=== PATIENT | female | born 1945 | race Two or more races ===

== ENCOUNTER 2024-04-30 08:18 | Outpatient (RCR) | payer MEDICAID, SELFPAY ==
--- NOTE | 2024-05-01 05:51 | CTCCONSULT_ITS ---
Patient: NIRAV CAGLE : 1945 MR#: [id number] Page 3 of 4 CONSULTATION NOTE DATE OF CONSULTATION: 04/30/2024 NAME: NIRAV CAGLE ACCOUNT: [id number] : 1945 AGE: 78 REFERRING PHYSICIAN: Paul Karimi MD PRIMARY PHYSICIAN: REASON FOR VISIT: History of rectal cancer Patient wants change of treatment team and establish care at [facility]. ONCOLOGY HISTORY: DIAGNOSIS: Malignant neoplasm of rectum [ICD10] C20 DATE OF DIAGNOSIS: 2022 STAGE/TNM: Stage IV TREATMENT HISTORY: Care?Plan Start?Date Cycle Day Intent HISTORY OF PRESENT ILLNESS: Patient had pain and bleeding for about 7 months with 15 to 20 pound weight loss. Patient had a colonoscopy on June 28, 2022. There was a rectal mass extending to the anus. Biopsy showed invasive adenocarcinoma moderately differentiated no loss of MMR. Patient completed preoperative chemoradiation with capecitabine 1000 mg twice daily on days of radiation. Patient tolerated the treatment well Patient had an episode of severe anemia requiring transfusion rectal bleeding has improved with this chemoradiation. Ms. Cagle has been seen by surgery and had follow-up sigmoidoscopy and biopsy. Patient was told there was no cancer found by multiple biopsies. Patient had been referred to [facility] by surgery. The referral was not approved by insurance. Patient decided to continue treatment locally. Patient received her first course of CapeOx chemotherapy with adjusted dose of advanced age on December 06, 2022. Patient tolerated the treatment very well. Ms. Cagle completed CapeOx chemotherapy in May 2023. Ms. Cagle underwent low anterior resection on August 23, 2023. Recent CT scan of chest abdomen and pelvis on December 07, 2023 showed pulmonary metastasis. Family and patient requested CT-guided biopsy of the lung nodules. OTHER MEDICAL HISTORY/CONDITIONS: DIABETES TYPE 2 HYPERTENSION RECTAL CANCER (2022) NEUROPATHY HYPERLIPIDEMIA ANEMIA REQUIRING BLOOD TRANSFUSIONS CHRONIC KIDNEY DISEASE COLON SURGERY/ COLECTOMY IN [place] (AUGUST 2023) CHOLECYSTECTOMY (2019) FAMILY HISTORY: Father:?DENIES?,?FATHER?WAS?DIABETIC Mother:?DENIES Sibling:?DENIES Children:?DENIES Cancer?History:?RECTAL?CANCER Patient?denies?family?cancer?history. 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 Education?Level:?Completed something less than 8th grade Marital?Status:? 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 Basaglar KwikPen - As directed 2. capecitabine - 500 mg 2 tab As directed 3. carvedilol - 3.125 mg 2 tab Daily 4. ferrous sulfate - 325 mg (65 mg iron) 1 tab Daily 5. gabapentin - 300 mg 6. lisinopril - 40 mg Daily 7. metformin - 850 mg Twice a Day Medications Last Reconciled by Eliana Grullon MD on 04/30/2024 ALLERGIES: No Known Allergies REVIEW OF SYSTEMS: A complete 14-point review of systems was performed and is negative except as noted in interval history. PHYSICAL EXAMINATION: VITAL SIGNS: Temperature?98.9, B/P?165/92, Height?60?inches, Oxygen?Saturation?100% Weight?130?lbs PAIN: 0 - No pain ECOG Performance Status: 1 - Symptomatic; ambulatory; restricted in strenuous activity GENERAL APPEARANCE: Appears well, in no apparent distress, appropriately interactive. HEENT: Normocephalic, no temporal wasting, normal conjunctiva, no scleral icterus, normal hearing, lips without lesions, neck normal range of motion. CARDIOVASCULAR: Not assessed. PULMONARY: Normal respiratory effort, no respiratory distress or use of accessory muscles, speaking in full sentences, no tachypnea. EXTREMITIES: No pedal edema or cyanosis. SKIN: Normal skin appearance. NEUROLOGIC: Alert and oriented x4. PSHYCHIATRIC: Appropriate affect, mood normal, behavior normal, intact thought and speech. LABORATORY DATA: I have personally reviewed and interpreted each of the patient?s relevant lab tests, abnormal findings are below: Date ASSESSMENT/PLAN: Rectal cancer Diagnosed in 2022 S/p chemo RT and lower perineal resection Patient have colectomy bag Will get treatment history records from her previous oncologist and recent scan which was completed in February per her ORDERS: CBC CMP CEA CT chest abdomen pelvis with IV contrast RETURN TO CLINIC: 2 weeks BILLING AND COMPLIANCE: I reviewed external records from providers outside my specialty as summarized above. I spent a total of 50 minutes on this patient?s care on the day of their visit excluding time spent related to any billed procedures. This time includes time spent with the patient as well as time spent documenting in the medical record, reviewing patients records and tests, obtaining history, placing orders, communicating with other healthcare professionals, counseling the patient, family or caregiver, and/or care coordination for the diagnoses above. Electronically Signed by: {Object.Sanct_ID*PnP.NameFL@M}, {Object.Sanct_ID*PnP.Suffix@U} D: {Object.Sanct_Date} T: {Object.Sanct_Time} CC: PCP: Referring: Paul Karimi This document was completed utilizing speech recognition software. Grammatical errors, random word insertions, pronoun errors, and incomplete sentences are an occasional consequence of this system due to software limitations, ambient noise, and hardware issues. Any formal questions or concerns about the content, text or information contained within the body of this dictation should be directly addressed to the provider for clarification.
== END 2024-05-09 23:59 | disposition home or self-care (01) ==
LOC: SCTC 08:18
PROVIDERS: PCP Physician Assistant; Visit Provider Internal Medicine Hematology & Oncology
DX: C20 Malignant neoplasm of rectum (principal); Z92.21 Personal history of antineoplastic chemotherapy; Z90.49 Acquired absence of other specified parts of digestive tract
CPT/HCPCS: 99213; G0463

== ENCOUNTER 2024-06-11 10:18 | Outpatient (RCR) | payer MEDICAID, SELFPAY ==
--- NOTE | 2024-06-30 17:34 | CTCFLWUP_ITS ---
Patient: NIRAV CAGLE : 1945 Page 2 of 2 FOLLOW UP NOTE DATE OF SERVICE: 06/11/2024 NAME: NIRAV CAGLE ACCOUNT: [id number] : 1945 AGE: 78 INTERVAL HISTORY: ONCOLOGY HISTORY: DIAGNOSIS: Malignant neoplasm of rectum [ICD10] C20 DATE OF DIAGNOSIS: 2022 STAGE/TNM: Stage IV TREATMENT HISTORY: Care?Plan Start?Date Cycle Day Intent Folfiri?cetuxmab 06/11/2024 1 14 Palliative HISTORY OF PRESENT ILLNESS: Patient had pain and bleeding for about 7 months with 15 to 20 pound weight loss. Patient had a colonoscopy on June 28, 2022. There was a rectal mass extending to the anus. Biopsy showed invasive adenocarcinoma moderately differentiated no loss of MMR. Patient completed preoperative chemoradiation with capecitabine 1000 mg twice daily on days of radiation. Patient tolerated the treatment well Patient had an episode of severe anemia requiring transfusion rectal bleeding has improved with this chemoradiation. Ms. Cagle has been seen by surgery and had follow-up sigmoidoscopy and biopsy. Patient was told there was no cancer found by multiple biopsies. Patient had been referred to [facility] by surgery. The referral was not approved by insurance. Patient decided to continue treatment locally. Patient received her first course of CapeOx chemotherapy with adjusted dose of advanced age on December 06, 2022. Patient tolerated the treatment very well. Ms. Cagle completed CapeOx chemotherapy in May 2023. Ms. Cagle underwent low anterior resection on August 23, 2023. Recent CT scan of chest abdomen and pelvis on December 07, 2023 showed pulmonary metastasis. Family and patient requested CT-guided biopsy of the lung nodules. OTHER MEDICAL HISTORY/CONDITIONS: DIABETES TYPE 2 HYPERTENSION RECTAL CANCER (2022) NEUROPATHY HYPERLIPIDEMIA ANEMIA REQUIRING BLOOD TRANSFUSIONS CHRONIC KIDNEY DISEASE COLON SURGERY/ COLECTOMY IN [place] (AUGUST 2023) CHOLECYSTECTOMY (2019) FAMILY HISTORY: Father:?DENIES?,?FATHER?WAS?DIABETIC Mother:?DENIES Sibling:?DENIES Children:?DENIES Cancer?History:?RECTAL?CANCER Patient?denies?family?cancer?history. 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 Education?Level:?Completed something less than 8th grade Marital?Status:? 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 Basaglar KwikPen - As directed 2. capecitabine - 500 mg 2 tab As directed 3. carvedilol - 3.125 mg 2 tab Daily 4. ferrous sulfate - 325 mg (65 mg iron) 1 tab Daily 5. gabapentin - 300 mg 6. lisinopril - 40 mg Daily 7. metformin - 850 mg Twice a Day Medications Last Reconciled by Nirav Person MD on 06/11/2024 ALLERGIES: No Known Allergies REVIEW OF SYSTEMS: A complete 14-point review of systems was performed and is negative except as noted in interval history. PHYSICAL EXAMINATION: VITAL SIGNS: Temperature?98.2, B/P?126/62, Oxygen?Saturation?98% Weight?134.6?lbs PAIN: 0 - No pain GENERAL APPEARANCE: Appears well, in no apparent distress, appropriately interactive. HEENT: Normocephalic, no temporal wasting, normal conjunctiva, no scleral icterus, normal hearing, lips without lesions, neck normal range of motion. CARDIOVASCULAR: Not assessed. PULMONARY: Normal respiratory effort, no respiratory distress or use of accessory muscles, speaking in full sentences, no tachypnea. EXTREMITIES: No pedal edema or cyanosis. SKIN: Normal skin appearance. NEUROLOGIC: Alert and oriented x4. PSHYCHIATRIC: Appropriate affect, mood normal, behavior normal, intact thought and speech. LABORATORY DATA: I have personally reviewed and interpreted each of the patient?s relevant lab tests, abnormal findings are below: Date ASSESSMENT/PLAN: Rectal cancer Diagnosed in 2022 S/p chemo RT and lower perineal resection Patient have colectomy bag Patient has been on capecitabine Will resume capecitabine and monitor with a CEA If patient's CEA continues to go down we will keep capecitabine or change chemotherapy Repeat imaging ORDERS: Order # Description [id number] Comprehensive Metabolic Panel - 12 + CBC with Auto Diff + CEA [id number] CT Scan + Chest + Abdomen and Pelvis + With W/O Contrast [id number] Follow Up 4 Week [id number] Iron Panel + Ferritin + Folic Acid; Serum + Reticulocyte Count [id number] Vitamin B-12 + Folic Acid; Serum 1784240 2 Units PRBC + 1 Unit PRBC [id number] CBC + Comprehensive Metabolic Panel + CEA [id number] Lab Appointment [id number] CBC + Comprehensive Metabolic Panel + CEA [id number] Lab Appointment RETURN TO CLINIC: 4 weeks BILLING AND COMPLIANCE: I reviewed external records from providers outside my specialty as summarized above. I spent a total of 50 minutes on this patient?s care on the day of their visit excluding time spent related to any billed procedures. This time includes time spent with the patient as well as time spent documenting in the medical record, reviewing patients records and tests, obtaining history, placing orders, communicating with other healthcare professionals, counseling the patient, family or caregiver, and/or care coordination for the diagnoses above. Electronically Signed by: Jorge Lisa MD T: 5:32 PM CC: Radha?Levar?(liliana,? PCP: Referring: Radha Cristobal (tipton) This document was completed utilizing speech recognition software. Grammatical errors, random word insertions, pronoun errors, and incomplete sentences are an occasional consequence of this system due to software limitations, ambient noise, and hardware issues. Any formal questions or concerns about the content, text or information contained within the body of this dictation should be directly addressed to the provider for clarification.
== END 2024-07-09 23:59 | disposition home or self-care (01) ==
LOC: SCTC 10:18
PROVIDERS: PCP Physician Assistant; Referring Provider Physician Assistant; Visit Provider Internal Medicine Hematology & Oncology
DX: C20 Malignant neoplasm of rectum (principal); Z92.21 Personal history of antineoplastic chemotherapy; Z90.49 Acquired absence of other specified parts of digestive tract
CPT/HCPCS: 99212; G0463

== ENCOUNTER → 2024-07-10 | Outpatient (CLI) | payer MEDICAID, SELFPAY ==
--- NOTE | 2024-07-10 15:30 | XR_ITS ---
Examination: CT chest, without intravenous contrast. Sagittal and coronal 2-D reconstructions. Exam date and time: 07/10/[address] chest without contrast January 17, 2024 INDICATIONS: Diagnosis malignant neoplasm rectum 2 years ago, hematuria 2 months, multiple metastatic pulmonary nodules CT chest without contrast January 17, 2024 restaging CTDI:vol (mGy) 15 DLP: (mGycm) 1003 Technique: Multiple 3.0 mm axial sections of the chest to been obtained. Bone and lung density settings are obtained. Sagittal and coronal 2-D reconstructions have been obtained. Low dose protocols were performed. One or more of the following dose reduction techniques were used; automated exposure control, adjustment of the mA and/or KV according to patient size, use of iterative reconstruction technique. Findings: Mild enlargement cardiac contour Moderate calcification left anterior descending coronary artery No paratracheal tracheobronchial or bronchopulmonary adenopathy bilateral pulmonary nodules again depicted All pulmonary nodules have increased in size Right upper lobe anterior segment pulmonary nodule measures 9.3 mm compared to 6.0 mm on January 17, 2024 Right lower lobe pulmonary nodule measures 15 mm compared to 10 mm on January 17, 2024 Multiple additional pulmonary nodules show increase in size compared to prior study New pulmonary nodules, for instance 9 mm pulmonary nodule left lower lobe image 209 No interval pneumonia or pulmonary edema The visualized liver or splenic lesion No pancreatic or adrenal mass No hydronephrosis 2 mm, 3 mm left lateral periaortic lymph nodes, 5 mm left lateral periaortic lymph node 4 mm 3 mm left periaortic lymph nodes 6 mm left common iliac lymph node Left ileostomy Left internal iliac lymphadenopathy, 12 mm, 10 mm Large rectal soft tissue tumor mass, transverse dimension 4.7 cm, this mass extending proximal to distal at least 10 cm extending to the anus Presacral soft tissue mass measures 24 mm in AP dimension and 6.6 cm in mediolateral dimension which may represent tumor extension presacral, I do not have a PET CT scan for comparison Minimal thickening of the urinary bladder wall up to 2 mm Prominent osteopenia Left hip arthroplasty generates artifact in the pelvis IMPRESSION: Progression of pulmonary nodular metastatic disease compared to CT chest January 17, 2024 Abdominal left pelvic lymphadenopathy. Rectosigmoid tumor mass transverse dimension 4.7 cm cephalocaudal dimension at least 10 cm Contiguous presacral soft tissue mass 2.4 cm AP dimension, 6.6 cm mediolateral dimension which may represent tumor extension presacral, I do not have a PET CT scan for comparison
== END | disposition home or self-care (01) ==
PROVIDERS: PCP Physician Assistant; Referring Provider Internal Medicine Hematology & Oncology; Visit Provider Internal Medicine Hematology & Oncology
DX: R59.0 Localized enlarged lymph nodes (principal); R91.8 Other nonspecific abnormal finding of lung field; C20 Malignant neoplasm of rectum
CPT/HCPCS: 71270; 74178; A4649; Q9967

== ENCOUNTER 2024-07-15 10:59 | Emergency (ER) | payer MEDICAID, SELFPAY ==
[2024-07-15 11:21] VITALS: BP 123/69; PULSE 66; RESP 18; TEMP 37.1; O2SAT 97; BMI 23.9
--- NOTE | 2024-07-15 11:37 | PD.EDRME ---
Rapid Medical Screening Exam RME Arrival date/time: 07/15/24 10:59 78-year-old female currently being treated for cancer presents to the emergency department today stating she had labs done yesterday which show she had a high potassium was referred to the ER for further evaluation Chief Complaint: Recheck/Abnormal Lab/Rx Vital signs: Vital Signs Temperature 98.7 F 07/15/24 11:21 Pulse Rate 66 07/15/24 11:21 Respiratory Rate 18 07/15/24 11:21 Blood Pressure 123/69 07/15/24 11:21 Pulse Oximetry (%) 97 07/15/24 11:21 Oxygen Delivery Method Room Air 07/15/24 11:21
[2024-07-15 12:27] LABS: Basophils % (Auto) 0 % (0-2.5); Eosinophils # (Auto) 0.2 Thou/mm3 (0.0-0.5); Eosinophils % (Auto) 1 % (0-10); Hematocrit 26.9 % (36.0-46.0); Hemoglobin 9.6 g/dL (12.0-16.0); Immature Granulocytes % (Auto) 0 % (0-0); Immature Granulocytes Auto 0.07 Thou/mm3 (0.00-0.00); Lymphocytes # (Auto) 2.4 Thou/mm3 (1.0-4.8); Lymphocytes % (Auto) 15 % (10-50); Mean Corpuscular HGB Conc 35.7 g/dl (31.0-37.0); Mean Corpuscular Hemoglobin 35.3 pg (25.0-35.0); Mean Corpuscular Volume 99 fL (80-100); Monocytes # (Auto) 0.9 Thou/mm3 (0.0-0.8); Monocytes % (Auto) 6 % (0-12); Neutrophils # (Auto) 12.4 Thou/mm3 (1.8-7.7); Neutrophils % (Auto) 77 % (37-80); Nucleated Red Blood Cell % 0 /100 WBC (0); Platelet Count 311 Thou/mm3 (140-440); RDW Standard Deviation 52.8 fL (36.4-46.3); Red Blood Count 2.72 Miln/mm3 (4.00-5.20)
[2024-07-15 12:46] LABS: Alanine Aminotransferase 14 U/L (10-49); Albumin, Serum 4.1 gm/dL (3.4-4.8); Albumin/Globulin Ratio 1.3 (1.2-2.2); Alkaline Phosphatase 105 U/L (46-116); Anion Gap 7 (7-16); Aspartate Amino Transferase 19 U/L (0-34); BUN/Creatinine Ratio 24 Ratio (12-20); Bilirubin,Total 0.4 mg/dL (0.3-1.2); Blood Urea Nitrogen 34 mg/dL (9-23); Carbon Dioxide 18.4 mMol/L (20.0-31.0); Chloride 107 mMol/L (98-107); Creatinine (Component) 1.4 mg/dL (0.6-1.3); Globulin 3.2 gm/dL (2.3-3.5); Glucose 126 mg/dL (74-106); Osmolality,Calculated 274 (275-295); Potassium 5.4 mMol/L (3.4-5.1); Sodium 132 mMol/L (136-145); Total Protein 7.3 gm/dL (5.7-8.2); eGFR 38 See Note
--- NOTE | 2024-07-15 15:54 | PD.EDADULT ---
ED General RME/HPI General Chief complaint: Recheck/Abnormal Lab/Rx Stated complaint: HIGH POTASSIUM Time Seen by Provider: 07/15/24 15:42 Arrival date/time: 07/15/24 10:59 CC: Hyperkalemia HPI ongoing unknown onset time he was here yesterday for potassium of 5.3 today has a patient at [facility] patient has no other complaints chest pain shortness of breath difficulty breathing. The patient is on oral chemotherapeutics, does not take any other medications. Denies fever shortness of breath difficulty breathing. RME / HPI RME / HPI narrative: 07/15/24 10:59 78-year-old female currently being treated for cancer presents to the emergency department today stating she had labs done yesterday which show she had a high potassium was referred to the ER for further evaluation Related Data Allergies Allergy/AdvReac Type Severity Reaction Status Date / Time No Known Allergies Allergy Verified 07/15/24 11:01 Review of Systems Review of Systems Narrative Review of Systems: GEN: No fever, no chills, no weight loss EYES: No discharge, no visual changes, no pain HEENT: No ear pain, no congestion, no sore throat PULM: No shortness of breath, no cough, no congestion CV: No chest pain, no dyspnea on exertion, no palpitations GI: No nausea, no vomiting, no diarrhea, no pain, no constipation : No frequency, no urgency, no dysuria MUSC/SKEL: No joint pain, no back pain SKIN: No rash PSYCH: No hallucinations, no depression HEME/LYMPH: No easy bleeding or bruising tendencies NEURO: No weakness, no headache Past Medical History Social History SMOKING STATUS: Never smoker ED Exam Narrative Physical exam: [General: Frail, but not deconditioned, not in any acute distress Head normocephalic HEENT: Eyes: Pupils are PERRLA EOMs are intact mouth pink dry membranes uvula is midline swallow symmetrical phonation is normal. All other subsystems of HEENT are within acceptable limits Neck is supple nontender Chest equal chest rise nontender to palpation Respiratory: Clear to auscultation no wheezes crackles or rubs CV: Rate rhythm is regular no murmurs rubs or clicks Abdomen is soft nontender no masses positive bowel sounds all 4 quadrants Back: No CVA tenderness no spinous process tenderness from cervical spine thoracic and lumbar spine Skin: Intact no petechiae rash induration ulceration or crepitus Extremities: Moving all extremity against resistance cap refill less than 2 seconds neurosensory intact Neuro: Awake alert oriented x3 Glascow coma 15 no focal deficits] Course Quality Measures none Orders Category Date Time Status CBC Stat Lab 07/15/24 12:15 Completed CMP [Comprehensive Metabolic Panel] Stat Lab 07/15/24 12:15 Completed ALBUTEROL RT 0.5ml [Proventil Rt 0.5ml] Med 07/15/24 15:53 Once 2.5 mg INH X1 ONE Sodium Chloride Rt Patricia 0.9% [NS Rt Patricia 0.9%] Med 07/15/24 15:53 Ordered 3 ml INH PRN PRN Vital Signs Vital signs: Vital Signs Temperature 98.7 F 07/15/24 11:21 Pulse Rate 66 07/15/24 11:21 Respiratory Rate 18 07/15/24 11:21 Blood Pressure 123/69 07/15/24 11:21 Pulse Oximetry (%) 97 07/15/24 11:21 Oxygen Delivery Method Room Air 07/15/24 11:21 Discharge Plan Plan Patient Disposition: HOME (Self Care) Patient condition on transfer: Stable Prescriptions/Referrals Referrals: Bob Connolly MD [Primary Care Provider] - In 1 week Problem List Clinical Impression: Hyperkalemia, Renal insufficiency Patient/Caregiver Discharge Instructions Other Activity Instructions:: Follow-up with your clinic in [place], and get regular checks if there is a worsening of symptoms or increase in values return to the emergency room immediately for further evaluation. Education Materials: Hyperkalemia Dc Print Language: South Korean Stand Alone Forms: Lily Award Info., Work/School Release, Patient Portal Info Letter PA/LITHOGRAPHIC PROOFER Supervising Physician PA/LITHOGRAPHIC PROOFER Supervising Physician: Alcides Panchal ENP [facility] Clinical Information Provided by: patient Medical Records reviewed [facility] Imaging Imaging Interpretation(s): CBC shows a mild leukocytosis of 16.0 H&H of 9.6 and 26.9 note I have no old labs for comparison. However the patient is on chemotherapy. Platelets at 311. CMP shows sodium 132 potassium of 5.4 CO2 of 18.4 BUN of 34 creatinine 1.4 glucose of 126 No transaminitis or T. bili elevation. Again no old labs for comparison other than yesterday which showed a mild rise in the potassium. Creatinine is mildly improved from 1.6-1.4. Medication Administration(s) Medication Administration History Albuterol (Albuterol Rt 2.5 Mg/0.5 Ml Nebu) 2.5 mg INH X1 ONE Stop: 07/15/24 15:54 Sodium Chloride (Sodium Chloride Rt Patricia 0.9% 3 Ml Nebu) 3 ml INH PRN PRN PRN Reason: SOLN Stop: 08/14/24 15:52 Diagnosis Differential Diagnosis ED Complaint MDM: Renal insufficiency hyperkalemia
[2024-07-15 16:23] VITALS: PULSE 62
[2024-07-15] MEDS: SODIUM CHLORIDE RT SOL 0.9% 3 ML NEBU INH (16:23)
[2024-07-15] MEDS: ALBUTEROL RT 2.5 MG/0.5 ML NEBU INH (16:23)
[2024-07-15 16:27] VITALS: PULSE 68; RESP 20; O2SAT 99
== END 2024-07-15 16:43 | disposition home or self-care (01) ==
PROVIDERS: Nurse Practitioner Primary Care; Emergency Provider Emergency Medicine; PCP Family Medicine
DX: E87.5 Hyperkalemia (principal); N28.9 Disorder of kidney and ureter, unspecified
CPT/HCPCS: 36415; 80053; 84132; 85025; 94640; 99283

== ENCOUNTER 2024-07-31 07:51 | Outpatient (RCR) | payer MEDICAID, SELFPAY ==
[2024-07-14 11:52] LABS: Alanine Aminotransferase 14 U/L (10-49); Albumin, Serum 4.1 gm/dL (3.4-4.8); Albumin/Globulin Ratio 1.3 (1.2-2.2); Alkaline Phosphatase 110 U/L (46-116); Anion Gap 10 (7-16); Aspartate Amino Transferase 21 U/L (0-34); BUN/Creatinine Ratio 26 Ratio (12-20); Bilirubin,Total 0.3 mg/dL (0.3-1.2); Blood Urea Nitrogen 41 mg/dL (9-23); Calcium 8.5 mg/dL (8.3-10.6); Calcium (Corrected) 8.5 mg/dL (8.5-10.1); Carbon Dioxide 19.2 mMol/L (20.0-31.0); Chloride 111 mMol/L (98-107); Creatinine (Component) 1.6 mg/dL (0.6-1.3); Globulin 3.1 gm/dL (2.3-3.5); Glucose 179 mg/dL (74-106); Osmolality,Calculated 293 (275-295); Potassium 5.3 mMol/L (3.4-5.1); Sodium 140 mMol/L (136-145); Total Protein 7.2 gm/dL (5.7-8.2); eGFR 33 See Note
--- NOTE | 2024-07-14 15:43 | CTCFLWUP_ITS ---
Patient: NIRAV CAGLE : 1945 Page 3 of 5 FOLLOW UP NOTE DATE OF SERVICE: 07/14/2024 NAME: NIRAV CAGLE ACCOUNT: [id number] : 1945 AGE: 78 Visit summary Nirav, a female with colon cancer, presented for follow-up of elevated potassium (5.7 mmol/L) and creatinine levels. Her history includes chronic kidney disease. She reported feeling good with no symptoms related to her abnormal labs. Her hemoglobin was 9.4 g/dL, showing improvement. Immediate repeat blood work was ordered for hyperkalemia. Management included prescribing potassium-lowering medication, increasing fluid intake, nephrology referral, continuing capecitabine, ordering CEA level tests, and recommending port placement for easier blood draws. INTERVAL HISTORY: Chief Complaint High potassium level, elevated creatinine, kidney function concerns History of Present Illness Nirav Connolly, a female patient with a history of colon cancer, presents for follow-up of her oncology care. She reports feeling good overall at this visit. The patient's primary concern is her elevated potassium and creatinine levels, which were discovered in recent blood work from July 10. She denies any symptoms related to these abnormal lab values, including constipation. When asked about her fluid intake, Nirav believes she is drinking enough water but is willing to increase her intake if necessary. Nirav does not report any new or worsening symptoms related to her colon cancer. She continues to take capecitabine as part of her cancer treatment regimen. The patient denies any other complaints or concerns at this time. Medical History - Colon cancer - Chronic kidney disease Medications and Supplements - Capecitabine - For colon cancer treatment Review of Systems Gastrointestinal: Negative for constipation. 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 Patient had a colonoscopy on June 28, 2022. There was a rectal mass extending to the anus. Biopsy showed invasive adenocarcinoma moderately differentiated no loss of MMR. Patient completed preoperative chemoradiation with capecitabine 1000 mg twice daily on days of radiation. Patient tolerated the treatment well Patient had an episode of severe anemia requiring transfusion rectal bleeding has improved with this chemoradiation. Ms. Cagle has been seen by surgery and had follow-up sigmoidoscopy and biopsy. Patient was told there was no cancer found by multiple biopsies. Patient had been referred to [facility] by surgery. The referral was not approved by insurance. Patient decided to continue treatment locally. Patient received her first course of CapeOx chemotherapy with adjusted dose of advanced age on December 06, 2022. Patient tolerated the treatment very well. Ms. Cagle completed CapeOx chemotherapy in May 2023. Ms. Cagle underwent low anterior resection on August 23, 2023. Recent CT scan of chest abdomen and pelvis on December 07, 2023 showed pulmonary metastasis. Family and patient requested CT-guided biopsy of the lung nodules. OTHER MEDICAL HISTORY/CONDITIONS: DIABETES TYPE 2 HYPERTENSION RECTAL CANCER (2022) NEUROPATHY HYPERLIPIDEMIA ANEMIA REQUIRING BLOOD TRANSFUSIONS CHRONIC KIDNEY DISEASE COLON SURGERY/ COLECTOMY IN [place] (AUGUST 2023) CHOLECYSTECTOMY (2019) FAMILY HISTORY: Father:?DENIES?,?FATHER?WAS?DIABETIC Mother:?DENIES Sibling:?DENIES Children:?DENIES Cancer?History:?RECTAL?CANCER Patient?denies?family?cancer?history. 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 Education?Level:?Completed something less than 8th grade Marital?Status:? 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 Basaglar KwikPen - As directed 2. capecitabine - 500 mg 2 tab As directed 3. carvedilol - 3.125 mg 2 tab Daily 4. ferrous sulfate - 325 mg (65 mg iron) 1 tab Daily 5. gabapentin - 300 mg 6. lisinopril - 40 mg Daily Medications Last Reconciled by Nirav Delgadillo MA on 07/14/2024 ALLERGIES: No Known Allergies REVIEW OF SYSTEMS: A complete 14-point review of systems was performed and is negative except as noted in interval history. PHYSICAL EXAMINATION: VITAL SIGNS: Temperature?98, B/P?118/69, Oxygen?Saturation?99% PAIN: 0 - No pain ECOG Performance Status: 0 - Asymptomatic and fully active GENERAL APPEARANCE: Appears well, in no apparent distress, appropriately interactive. HEENT: Normocephalic, no temporal wasting, normal conjunctiva, no scleral icterus, normal hearing, lips without lesions, neck normal range of motion. CARDIOVASCULAR: Not assessed. PULMONARY: Normal respiratory effort, no respiratory distress or use of accessory muscles, speaking in full sentences, no tachypnea. EXTREMITIES: No pedal edema or cyanosis. SKIN: Normal skin appearance. NEUROLOGIC: Alert and oriented x4. PSHYCHIATRIC: Appropriate affect, mood normal, behavior normal, intact thought and speech. LABORATORY DATA: I have personally reviewed and interpreted each of the patient?s relevant lab tests, abnormal findings are below: Date ASSESSMENT/PLAN: Rectal cancer Diagnosed in 2022 S/p chemo RT and lower perineal resection Patient have colectomy bag Patient has been on capecitabine Nirav Mohsen, female patient with colon cancer, presenting for follow-up of lab results and ongoing management. Hyperkalemia Assessment: Patient's potassium level is elevated at 5.7, which is concerning due to the risk of cardiac complications. The last blood work was performed on July 10, 2024, showing high potassium and creatinine levels. This elevation in potassium is potentially life-threatening and requires immediate attention. The patient's kidney function appears to be impaired, contributing to the electrolyte imbalance. Plan: - Repeat blood work immediately to recheck potassium and kidney function - If potassium remains elevated: - Administer IV fluids - Prescribe potassium-lowering medication (sent to [facility] pharmacy) - Patient instructed not to take medication until contacted by nursing staff - Encourage increased fluid intake to at least 5-6 bottles of water daily - Referral to residential support specialist for kidney issues Colon Cancer Assessment: Patient is undergoing treatment for colon cancer. Current hemoglobin level is 9.4, which is considered improved. Ongoing monitoring of cancer markers, specifically CEA levels, is necessary to assess disease progression and treatment efficacy. Plan: - Continue capecitabine for colon cancer treatment - Order CEA level test - Provide handwritten orders for monthly CEA tests for the next 12 months - Reassess treatment plan if CEA levels increase or if next scan shows cancer progression - Recommend port placement for easier blood draws and potential future treatments - Order submitted for port placement, pending insurance approval - Patient to be contacted for scheduling once approved Anemia Assessment: Patient's hemoglobin has improved to 9.4, which is now considered good. This indicates a positive response to current management strategies for anemia. Plan: - Continue current anemia management - Monitor hemoglobin levels with future blood work ORDERS: Order # Description [id number] Comprehensive Metabolic Panel - 12 + CBC with Auto Diff + CEA + [id number] + Comprehensive Metabolic Panel - 12 + CBC with Auto Diff [id number] RETURN TO CLINIC: Tomorrow BILLING AND COMPLIANCE: I reviewed external records from providers outside my specialty as summarized above. I spent a total of 50 minutes on this patient?s care on the day of their visit excluding time spent related to any billed procedures. This time includes time spent with the patient as well as time spent documenting in the medical record, reviewing patients records and tests, obtaining history, placing orders, communicating with other healthcare professionals, counseling the patient, family or caregiver, and/or care coordination for the diagnoses above. Electronically Signed by: Jorge Lisa MD T: 3:40 PM CC: Radha?Levar?(liliana,? PCP: Referring: Radha Cristobal (tipton) This document was completed utilizing speech recognition software. Grammatical errors, random word insertions, pronoun errors, and incomplete sentences are an occasional consequence of this system due to software limitations, ambient noise, and hardware issues. Any formal questions or concerns about the content, text or information contained within the body of this dictation should be directly addressed to the provider for clarification.
[2024-07-31 08:59] LABS: Basophils # (Auto) 0.1 Thou/mm3 (0.0-0.2); Basophils % (Auto) 0 % (0-2.5); Eosinophils # (Auto) 0.2 Thou/mm3 (0.0-0.5); Eosinophils % (Auto) 1 % (0-10); Hematocrit 23.7 % (36.0-46.0); Immature Granulocytes % (Auto) 1 % (0-0); Immature Granulocytes Auto 0.06 Thou/mm3 (0.00-0.00); Lymphocytes # (Auto) 1.6 Thou/mm3 (1.0-4.8); Lymphocytes % (Auto) 14 % (10-50); Mean Corpuscular HGB Conc 33.3 g/dl (31.0-37.0); Mean Corpuscular Hemoglobin 34.8 pg (25.0-35.0); Mean Corpuscular Volume 104 fL (80-100); Monocytes # (Auto) 0.7 Thou/mm3 (0.0-0.8); Monocytes % (Auto) 6 % (0-12); Neutrophils # (Auto) 8.8 Thou/mm3 (1.8-7.7); Neutrophils % (Auto) 77 % (37-80); Nucleated Red Blood Cell % 0 /100 WBC (0); Platelet Count 318 Thou/mm3 (140-440); RDW Standard Deviation 55.6 fL (36.4-46.3); Red Blood Count 2.27 Miln/mm3 (4.00-5.20); White Blood Count 11.4 Thou/mm3 (3.6-11.0)
[2024-07-31 09:14] LABS: Carcinoembryonic Antigen 12.6 ng/mL (0.0-5.0)
[2024-07-31 09:18] LABS: Hemoglobin 7.9 g/dL (12.0-16.0)
[2024-07-31 09:27] LABS: Alanine Aminotransferase 7 U/L (10-49); Albumin, Serum 3.5 gm/dL (3.4-4.8); Albumin/Globulin Ratio 1.2 (1.2-2.2); Alkaline Phosphatase 90 U/L (46-116); Anion Gap 11 (7-16); Aspartate Amino Transferase 12 U/L (0-34); BUN/Creatinine Ratio 22 Ratio (12-20); Bilirubin,Total 0.3 mg/dL (0.3-1.2); Blood Urea Nitrogen 35 mg/dL (9-23); Calcium (Corrected) 8.4 mg/dL (8.5-10.1); Chloride 110 mMol/L (98-107); Creatinine (Component) 1.6 mg/dL (0.6-1.3); Globulin 2.9 gm/dL (2.3-3.5); Glucose 174 mg/dL (74-106); Osmolality,Calculated 283 (275-295); Potassium 5.6 mMol/L (3.4-5.1); Sodium 136 mMol/L (136-145); Total Protein 6.4 gm/dL (5.7-8.2); eGFR 33 See Note
[2024-07-31 10:41] LABS: Carbon Dioxide 14.8 mMol/L (20.0-31.0)
== END 2024-08-09 23:59 | disposition home or self-care (01) ==
LOC: SCTC 07:51
PROVIDERS: PCP Physician Assistant; Referring Provider Physician Assistant; Visit Provider Internal Medicine Hematology & Oncology
DX: C20 Malignant neoplasm of rectum (principal); E87.5 Hyperkalemia; D64.9 Anemia, unspecified
CPT/HCPCS: 36415; 80053; 82378; 85025; 96360; 99212; J7030; G0463

== ENCOUNTER 2024-07-31 13:05 | Emergency (ER) | payer MEDICAID, SELFPAY ==
[2024-07-31] VITALS (18 sets, daily range): BP systolic 117–158; BP diastolic 60–83; PULSE 63–118; RESP 10–24; TEMP 36.7–37.2; O2SAT 99–100; BMI 24.3
--- NOTE | 2024-07-31 13:29 | PD.EDRME ---
Rapid Medical Screening Exam RME Arrival date/time: 07/31/24 13:05 78-year-old female with a history of lung cancer and colon cancer presents to the emergency room with a chief complaint of weakness and fatigue. Patient states she had blood drawn this morning and was sent by the cancer treatment center for a blood transfusion I have greeted and performed a focused initial assessment of this patient. A comprehensive ED assessment and evaluation of the patient, analysis of all test results, and completion of the medical decision making process will be conducted by additional ED providers. Chief Complaint: Recheck/Abnormal Lab/Rx Time Seen by Provider: 07/31/24 13:08 Vital signs: Vital Signs Temperature 99.0 F 07/31/24 13:17 Pulse Rate 70 07/31/24 13:17 Respiratory Rate 16 07/31/24 13:17 Blood Pressure 117/61 07/31/24 13:17 Pulse Oximetry (%) 99 07/31/24 13:17 Oxygen Delivery Method Room Air 07/31/24 13:17 Vital signs reviewed by provider: Yes
[2024-07-31 14:02] LABS: Basophils # (Auto) 0.1 Thou/mm3 (0.0-0.2); Basophils % (Auto) 0 % (0-2.5); Eosinophils # (Auto) 0.2 Thou/mm3 (0.0-0.5); Eosinophils % (Auto) 2 % (0-10); Hematocrit 22.7 % (36.0-46.0); Immature Granulocytes % (Auto) 0 % (0-0); Immature Granulocytes Auto 0.03 Thou/mm3 (0.00-0.00); Lymphocytes # (Auto) 1.6 Thou/mm3 (1.0-4.8); Lymphocytes % (Auto) 13 % (10-50); Mean Corpuscular HGB Conc 35.2 g/dl (31.0-37.0); Mean Corpuscular Hemoglobin 35.4 pg (25.0-35.0); Mean Corpuscular Volume 100 fL (80-100); Monocytes # (Auto) 0.7 Thou/mm3 (0.0-0.8); Monocytes % (Auto) 6 % (0-12); Neutrophils # (Auto) 9.5 Thou/mm3 (1.8-7.7); Neutrophils % (Auto) 79 % (37-80); Nucleated Red Blood Cell % 0 /100 WBC (0); Platelet Count 286 Thou/mm3 (140-440); RDW Standard Deviation 53.3 fL (36.4-46.3); Red Blood Count 2.26 Miln/mm3 (4.00-5.20); White Blood Count 12.1 Thou/mm3 (3.6-11.0)
[2024-07-31 14:19] LABS: Alanine Aminotransferase 9 U/L (10-49); Albumin, Serum 3.6 gm/dL (3.4-4.8); Albumin/Globulin Ratio 1.2 (1.2-2.2); Alkaline Phosphatase 88 U/L (46-116); Anion Gap 10 (7-16); Aspartate Amino Transferase 14 U/L (0-34); BUN/Creatinine Ratio 18 Ratio (12-20); Bilirubin,Total 0.3 mg/dL (0.3-1.2); Blood Urea Nitrogen 30 mg/dL (9-23); Calcium 8.3 mg/dL (8.3-10.6); Calcium (Corrected) 8.6 mg/dL (8.5-10.1); Carbon Dioxide 15.4 mMol/L (20.0-31.0); Chloride 109 mMol/L (98-107); Creatinine (Component) 1.7 mg/dL (0.6-1.3); Glucose 179 mg/dL (74-106); Osmolality,Calculated 278 (275-295); Potassium 5.8 mMol/L (3.4-5.1); Sodium 134 mMol/L (136-145); Total Protein 6.6 gm/dL (5.7-8.2); eGFR 30 See Note
[2024-07-31 14:43] LABS: INR 1.2 (0.9-1.3); Partial Thromboplastin Time 25.4 Seconds (22.0-36.0); Prothrombin Time 12.8 Seconds (9.0-12.2)
--- NOTE | 2024-07-31 16:04 | EDNOTE_ITS ---
ED Recheck Abnl Lab Rx-RME/HPI General Chief Complaint: Recheck/Abnormal Lab/Rx Stated Complaint: ANEMIA, SENT BY [facility] Time Seen by Provider: 07/31/24 13:08 Arrival date/time: 07/31/24 13:05 RME / HPI RME / HPI narrative: 78-year-old female with a history of lung cancer and colon cancer presents to the emergency room with a chief complaint of weakness and fatigue. Patient states she had blood drawn this morning and was sent by the cancer treatment center for a blood transfusion. Patient is currently on chemotherapy. Patient denies any other complaints denies any vomiting blood or changes to color of the stool. Related Data Allergies Allergy/AdvReac Type Severity Reaction Status Date / Time No Known Allergies Allergy Verified 07/15/24 11:01 Review of Systems Review of Systems Narrative Review of Systems: Review of system reviewed and within normal limits except mentioned in HPI ED Exam Narrative Physical exam: VITAL SIGNS: Reviewed. GENERAL APPEARANCE: Alert and interactive, follows commands, no acute distress, HEAD AND FACE: Non-traumatic. ENT: PERRL, pale conjunctiva eyelid no trauma, Mucous membrane moist. NECK: Supple, nontender, no nuchal rigidity. CHEST: No tenderness, no crepitus, no paradoxical movement, no retractions. LUNGS: Clear, well ventilated, symmetric, no rales, no wheezing, no ronchi, no stridor, good breath sounds bilaterally. HEART: Regular rate, regular rhythm, no murmur, no gallops. ABDOMEN: Soft, positive bowel sounds, nondistended, no guarding, nontender, no rebound, no masses, RECTAL: Deferred. GENITAL: Deferred. NEUROLOGICAL: Gross motor function intact sensory function intact, Appropriate for age. MUSCULOSKELETAL: low back nontender, full range of motion. EXTREMITIES: Nontender, full range of motion. SKIN: Color pale, dry, no rash, no lacerations, no abrasions, no contusions. LYMPHATICS: Deferred. Course Quality Measures none Orders Category Date Time Status Transfuse,blood/blood products ONCE Care 07/31/24 15:35 Active CBC Stat Lab 07/31/24 13:38 Completed CMP [Comprehensive Metabolic Panel] Stat Lab 07/31/24 13:38 Completed PT [Prothrombin Time with INR] Stat Lab 07/31/24 13:38 Completed PTT [Partial Thromboplastin Time] Stat Lab 07/31/24 13:38 Completed Type and Screen Stat Lab 07/31/24 13:38 Completed prbc [Red Blood Cells] Stat Lab 07/31/24 13:38 Completed Sod Polystyrene Sulfon Susp [Kayexalate Susp] Med 07/31/24 15:35 Discontinued 30 gm PO X1 ONE Vital Signs Vital signs: Vital Signs Temperature 99.0 F 07/31/24 13:17 Pulse Rate 70 07/31/24 13:17 Respiratory Rate 16 07/31/24 13:17 Blood Pressure 117/61 07/31/24 13:17 Pulse Oximetry (%) 99 07/31/24 13:17 Oxygen Delivery Method Room Air 07/31/24 13:17 Recheck / Abnormal Lab / Rx MDM Narrative MDM Narrative:: 78-year-old female with a history of lung cancer and colon cancer presents to the emergency room with a chief complaint of weakness and fatigue. Patient states she had blood drawn this morning and was sent by the cancer treatment center for a blood transfusion. Patient is currently on chemotherapy. Patient denies any other complaints denies any vomiting blood or changes to color of the stool. Patient's hemoglobin was noted to be 8.0, hematocrit of 22.7, blood transfusion was done since patient is symptomatic and currently on chemotherapy. Patient potassium was noted to be 5.8 patient was given Kayexalate p.o. Was given 2 units of packed RBC, patient tolerated procedure well. Patient data External records reviewed:: None Clinical information provided by:: patient Social determinants that could affect healthcare access:: none Patient has the following chronic illnesses:: None How is presenting disease/condition affected by chronic disease/condition?: no chronic disease Evaluation data The following diagnostics were reviewed and interpreted by me:: lab results Lab and/or radiology exams considered but not ordered:: None Interpretation Summary: See results MDM Medications / Prescriptions Medications or Prescriptions considered but not ordered:: None Medication administrations:: Medication Administration History Discontinued Medications Sodium Polystyrene Sulfonate (Sod Polystyrene Sulfon Susp 15 Gm/60 Ml Btl) 30 gm PO X1 ONE Stop: 07/31/24 15:36 Last Admin: 07/31/24 17:40 Dose: 30 gm Documented By: GM Kayexalate Consultations Consultation(s) initiated? (list below): No Diagnosis Recheck Differential Diagnosis: other (Anemia, anemia related to cancer anemia of chronic disease) Most likely diagnosis given after review of the tests above:: Anemia chronic disease Admission Indicated Admission indicated?: not indicated Admission Request Was there a request for admission?: No Disposition Plan Disposition Plan: Discharge Discharge Attestation Discharge Attestation: The patient and all family members were given an opportunity to ask questions and understood the discharge instructions. Discharge instructions specifically effects, indications for sooner follow up or return to the emergency department, and the expected course of current diagnosis. Patient condition: Stable Discharge Plan Plan Patient Disposition: HOME (Self Care) Discharge Disposition comment: stable Prescriptions/Referrals Referrals: Radha Cristobal PA-C [Primary Care Provider] - In 1 week Problem List Clinical Impression: Anemia Patient/Caregiver Discharge Instructions Discharge Activity: activity as tolerated Education Materials: Anemia During Cancer Additional Instructions: Thank you for the opportunity for serving you today. You are stable for discharged . You are advised to: Follow-up with your PCP in 1 to 2 days Return to ED for worsening of symptoms Follow-up with your PCP in 2 days for repeat potassium check Print Language: Central African Stand Alone Forms: Lily Award Info., Work/School Release, Patient Portal Info Letter MEG Supervising Physician MEG Supervising Physician: MD Jorge Alberto
[2024-07-31] MEDS: SOD POLYSTYRENE SULFON SUSP 15 GM/60 ML BTL 30 GM PO (17:40)
--- NOTE | 2024-07-31 19:10 | PC.NURSE ---
ASSUMED CARE OF PATIENT, 1ST UNIT OF PRBCS ALREADY INFUSING, PT STATES THAT SHE HAD ROUTINE BLOOD DRAWN THIS MORNING AND THEY CALLED HER TO TELL HER HER BLOOD WAS LOW AND TO GO TO THE CANCER CENTER FOR A BLOOD TRANSFUSION. WHEN SHE ARRIVED THERE THEY SENT HER TO THE ER. PT HAS NO COMPLAINTS, DAUGHTER AT BEDSIDE, PT TO GET 1 MORE UNIT OF PRBCS, WILL CONTINUE WITH PLAN OF CARE
== END 2024-07-31 23:39 | disposition home or self-care (01) ==
PROVIDERS: Nurse Practitioner Family; Emergency Provider Family Medicine; PCP Physician Assistant
DX: D64.9 Anemia, unspecified (principal)
CPT/HCPCS: 36415; 36430; 80053; 85025; 85610; 85730; 86850; 86900; 86901; 86923; 99285; P9016; A9270

== ENCOUNTER 2024-08-26 11:16 | Outpatient (RCR) | payer MEDICAID, SELFPAY ==
--- NOTE | 2024-08-26 13:30 | CTCFLWUP_ITS ---
Patient: NIRAV CAGLE : 1945 Page 2 of 2 FOLLOW UP NOTE DATE OF SERVICE: 08/26/2024 NAME: NIRAV CAGLE ACCOUNT: [id number] : 1945 AGE: 78 INTERVAL HISTORY: Subjective: Chief Complaint Follow-up for colon cancer treatment, increasing tumor markers History of Present Illness Nirav Connolly, a patient with colon cancer, presents for follow-up of her ongoing treatment. Her cancer markers have shown an increase, with her Lesa test result rising from 3.05 in April to 7.87 currently, and her CEA now at 12.6. The patient has been taking Xeloda (capecitabine) for her colon cancer treatment, but it appears to be ineffective. She is currently on a low dose regimen of 2 tablets in the morning and 1 in the afternoon, which is significantly lower than the recommended dose based on her weight of 131 lbs and body surface area of 1.57. The patient reports experiencing a sensation like sand in her hands, which may be indicative of neuropathy as a side effect of her current treatment. The patient's daughter expresses concerns about starting intravenous chemotherapy, as the patient is scared of this treatment modality. It is noted that the patient has not received aggressive treatment for her colon cancer thus far, which has impacted her eligibility for surgery. Medications and Supplements - Xeloda (capecitabine) 500 mg tablets - Current dose: 2 tablets in the morning, 1 tablet in the afternoon - Taken 2 weeks on, 1 week off - Not working effectively for cancer treatment - Lesa testing - Recent result: 7.87 (increased from 3.05 in April) Review of Systems Neurological: Positive for neuropathy (feeling like sand in hands). Objective: Vital Signs - Weight: 131 lbs Laboratory, Imaging, and Diagnostic Test Results - Date: SunAug 26 2024 - Lesa test: 7.87 (positive) - CEA: 12.6 - Previous results: - Lesa test: 3.05 (April 2024) Medications and Supplements - Capecitabine - For colon cancer treatment Review of Systems Gastrointestinal: Negative for constipation. Medical History - Colon cancer - Chronic kidney disease Medications and Supplements - Capecitabine - For colon cancer treatment Review of Systems Gastrointestinal: Negative for constipation. 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 Patient had a colonoscopy on June 28, 2022. There was a rectal mass extending to the anus. Biopsy showed invasive adenocarcinoma moderately differentiated no loss of MMR. Patient completed preoperative chemoradiation with capecitabine 1000 mg twice daily on days of radiation. Patient tolerated the treatment well Patient had an episode of severe anemia requiring transfusion rectal bleeding has improved with this chemoradiation. Ms. Cagle has been seen by surgery and had follow-up sigmoidoscopy and biopsy. Patient was told there was no cancer found by multiple biopsies. Patient had been referred to [facility] by surgery. The referral was not approved by insurance. Patient decided to continue treatment locally. Patient received her first course of CapeOx chemotherapy with adjusted dose of advanced age on December 06, 2022. Patient tolerated the treatment very well. Ms. Cagle completed CapeOx chemotherapy in May 2023. Ms. Cagle underwent low anterior resection on August 23, 2023. Recent CT scan of chest abdomen and pelvis on December 07, 2023 showed pulmonary metastasis. Family and patient requested CT-guided biopsy of the lung nodules. OTHER MEDICAL HISTORY/CONDITIONS: DIABETES TYPE 2 HYPERTENSION RECTAL CANCER (2022) NEUROPATHY HYPERLIPIDEMIA ANEMIA REQUIRING BLOOD TRANSFUSIONS CHRONIC KIDNEY DISEASE COLON SURGERY/ COLECTOMY IN [place] (AUGUST 2023) CHOLECYSTECTOMY (2019) FAMILY HISTORY: Father:?DENIES?,?FATHER?WAS?DIABETIC Mother:?DENIES Sibling:?DENIES Children:?DENIES Cancer?History:?RECTAL?CANCER Patient?denies?family?cancer?history. 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 Education?Level:?Completed something less than 8th grade Marital?Status:? 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 Basaglar KwikPen - As directed 2. capecitabine - 500 mg tab As directed 3. capecitabine - 500 mg 1,250 meq/m*2 1963 meq 3 tabs twice daily for 14 days 4. carvedilol - 3.125 mg 2 tab Daily 5. ferrous sulfate - 325 mg (65 mg iron) 1 tab Daily 6. gabapentin - 300 mg 7. lisinopril - 40 mg Daily 8. sodium polystyrene sulfonate - 30 gm once Medications Last Reconciled by Nirav Delgadillo MA on 07/14/2024 ALLERGIES: No Known Allergies REVIEW OF SYSTEMS: A complete 14-point review of systems was performed and is negative except as noted in interval history. PHYSICAL EXAMINATION: VITAL SIGNS: GENERAL APPEARANCE: Appears well, in no apparent distress, appropriately interactive. HEENT: Normocephalic, no temporal wasting, normal conjunctiva, no scleral icterus, normal hearing, lips without lesions, neck normal range of motion. CARDIOVASCULAR: Not assessed. PULMONARY: Normal respiratory effort, no respiratory distress or use of accessory muscles, speaking in full sentences, no tachypnea. EXTREMITIES: No pedal edema or cyanosis. SKIN: Normal skin appearance. NEUROLOGIC: Alert and oriented x4. PSHYCHIATRIC: Appropriate affect, mood normal, behavior normal, intact thought and speech. LABORATORY DATA: I have personally reviewed and interpreted each of the patient?s relevant lab tests, abnormal findings are below: Date 07/31/24 ??WHITE?BLOOD?COUNT?(Thou/mm3) 11.4?H ? ??RED?BLOOD?COUNT?(Miln/mm3) 2.27?L ? ??HEMOGLOBIN?(gm/dl) 7.9?L ? ??HEMATOCRIT?(%) 23.7?L ? ??PLATELET?COUNT?(Thou/mm3) 318 ? ??NEUTROPHILS?%,?AUTO?(%) 77 ? ??LYMPH?%,?AUTO?(%) 14 ? ??NEUTROPHILS,?AUTO?(Thou/mm3) 8.8?H ? ??GLUCOSE,RANDOM?(mg/dL) 174?H 179?H ??BLOOD?UREA?NITROGEN?(mg/dL) 35?H 30?H ??CREATININE?(mg/dL) 1.60?H 1.70?H ??SODIUM?(mmol/L) 136 134?L ??POTASSIUM?(mmol/L) 5.6?H 5.8?H ??CHLORIDE?(mmol/L) 110?H 109?H ??CrCl?(CandG)?(ml/min) 27.23 25.63 ??AST/SGOT?(Unit/L) 12 14 ??ALT/SGPT?(Unit/L) 7?L 9?L ??ALKALINE?PHOSPHATASE?(Unit/L) 90 88 ??BILIRUBIN,?TOTAL?(mg/dL) 0.3 0.3 ??PROTEIN?TOTAL?(gm/dl) 6.4 6.6 ??ALBUMIN,?SERUM?(gm/dl) 3.5 3.6 ??GLOBULIN?(gm/dl) 2.9 3.0 ??ALBUMIN/GLOBULIN?RATIO 1.2 1.2 ??CALCIUM,?SERUM?(mg/dL) 8.0?L 8.3 ??CALCIUM?SERUM?(CORRECTED)?(mg/dL) 8.4?L 8.6 ??CEA?(O*)?(ng/ml) 12.6?H ? ASSESSMENT/PLAN: Rectal cancer Diagnosed in 2022 S/p chemo RT and lower perineal resection Patient have colectomy bag Patient has been on capecitabine Nirav Connolly, female patient with colon cancer, presenting for follow-up of lab results and ongoing management. Patient's Lesa test, which detects cancer in the blood, has increased from 3.05 in April to 7.87 currently. CEA is now 12.6. The patient has been on Xeloda (capecitabine) at a suboptimal dose (3 tablets daily instead of the weight-based recommendation of 8 tablets daily). Current treatment is deemed ineffective as evidenced by rising tumor markers. The cancer burden is described as very little in the body, but the current oral chemotherapy regimen is not controlling disease progression. Patient has not received aggressive treatment for colon cancer, which has impacted her candidacy for surgery. Plan: Offered to discontinue current Xeloda (capecitabine) regimen due to ineffectiveness - Initiate new chemotherapy regimen with FOLF[facility]I and patient is not accepting: - Option 1: Intravenous chemotherapy via port - Order placement of chemotherapy port - Chemotherapy plan already approved, ready to initiate - Option 2 (if patient declines IV therapy): Discussed alternative option to continued Xeloda - If continuing oral therapy, adjust Xeloda (capecitabine) dosage: - Increase to 3 tablets (1500 mg) PO BID - Total daily dose: 3000 mg - Schedule: 2 weeks on, 1 week off - Prescribe 84 tablets of new Xeloda prescription - Informed patient: - New IV chemotherapy may cause some hair thinning but not complete baldness but will be likely more effective - Potential side effects of capecitabine include hand-foot syndrome (peeling of hands) and neuropathy - Follow up with Brooke for written instructions on new prescription- Colon cancer - Chronic kidney disease Anemia Assessment: Patient's hemoglobin has improved to 9.4, which is now considered good. This indicates a positive response to current management strategies for anemia. Plan: - Continue current anemia management - Monitor hemoglobin levels with future blood work ORDERS: Order # Description [id number] CBC + Comprehensive Metabolic Panel + CEA [id number] Lab Appointment [id number] CBC + Comprehensive Metabolic Panel + CEA [id number] Lab Appointment [id number] CBC + Comprehensive Metabolic Panel + CEA [id number] Lab Appointment [id number] CBC + Comprehensive Metabolic Panel + CEA [id number] Lab Appointment [id number] CBC + Comprehensive Metabolic Panel + CEA [id number] Lab Appointment [id number] CBC + Comprehensive Metabolic Panel + CEA [id number] Lab Appointment RETURN TO CLINIC: BILLING AND COMPLIANCE: I reviewed external records from providers outside my specialty as summarized above. I spent a total of 50 minutes on this patient?s care on the day of their visit excluding time spent related to any billed procedures. This time includes time spent with the patient as well as time spent documenting in the medical record, reviewing patients records and tests, obtaining history, placing orders, communicating with other healthcare professionals, counseling the patient, family or caregiver, and/or care coordination for the diagnoses above. Electronically Signed by: Jorge Lisa MD T: 1:28 PM CC: Radha?Levar?(liliana,LETTY PCP: Referring: Radha Cristobal ([place]) This document was completed utilizing speech recognition software. Grammatical errors, random word insertions, pronoun errors, and incomplete sentences are an occasional consequence of this system due to software limitations, ambient noise, and hardware issues. Any formal questions or concerns about the content, text or information contained within the body of this dictation should be directly addressed to the provider for clarification.
== END 2024-09-08 23:59 | disposition home or self-care (01) ==
LOC: SCTC 11:16
PROVIDERS: PCP Physician Assistant; Referring Provider Physician Assistant; Visit Provider Internal Medicine Hematology & Oncology
DX: C20 Malignant neoplasm of rectum (principal); R97.0 Elevated carcinoembryonic antigen [CEA]; D64.9 Anemia, unspecified
CPT/HCPCS: 99213; G0463

== ENCOUNTER 2024-10-21 23:26 | Inpatient (IN) | payer MEDICAID, SELFPAY ==
[2024-10-22] VITALS (18 sets, daily range): BP systolic 109–144; BP diastolic 52–76; PULSE 63–79; RESP 14–100; TEMP 36.1–37.8; O2SAT 98–100; BMI 24.7; BMI 24.3
--- NOTE | 2024-10-22 00:29 | EDNOTE_ITS ---
ED General RME/HPI General Chief complaint: GI Bleed Stated complaint: NEED BLOOD TRANSFUSION Time Seen by Provider: 10/22/24 00:16 Arrival date/time: 10/21/24 23:26 RME / HPI RME / HPI narrative: 78-year-old female with history of colon cancer s/p resection and colectomy and currently on chemotherapy comes into the ED with chief complaints of low blood levels from her oncologist appointment today. Patient states that today she had an oncology appointment and she was told that her blood levels were low and that she needed 2 units of blood. They also mentioned that her protein was also low. Patient mentions that she has been having some issues urinating and sometimes she has a lot of urgency but does not urinate anything. Patient admits having weakness and blurry vision. Patient states that she has not had any fevers, shortness of breath, chest pain, abdominal pain, increased output from cholectomy bag, or burning sensation in urination. Otherwise has no other complaints at this time. Denies any smoking, drugs, alcohol Related Data Allergies Allergy/AdvReac Type Severity Reaction Status Date / Time No Known Allergies Allergy Verified 10/21/24 23:27 Review of Systems Review of Systems Systems Reviewed: All systems reviewed, normal except as documented Past Medical History Past Medical History Comments PMH COMMENT: PMH: Colon cancer s/p resection on chemotherapy and colectomy Social Hx: Denies any alcohol, drugs, smoking Allergies: NKDA Surgical Hx: Cholecystectomy ED Exam Narrative Physical exam: Gen: A&O X 3, NAD, frail elderly female in mildly pale HEENT: NCAT, EOMI, Pupils reactive NOÉ, not icteric. External ears normal. No rhinorrhea. Moist mucous membranes. Neck: Supple, full range of motion, no observable masses, No meningeal sign. Lungs: No Respiratory distress, clear bilateral. CV: RRR, no murmurs. Abdomen: Soft, nondistended, No rebound tenderness. Colectomy bag on the left side abdomen with no blood visible MSK: No joint swelling, no redness, peripheral pulses presents, lumbar with no edema. Skin: No rashes, petechiae, lesions. Neuro: No focal neurological deficits appreciated, sensory and motor intact. Psych: Cooperative, appropriate mood and effect. 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 START 00 Care 10/22/24 00:46 Active Continuous Pulse Oximetry NOW Care 10/22/24 00:46 Completed Decision to Admit X1 Care 10/22/24 03:30 Active EKG (ED ONLY) *Do not use* NOW Care 10/22/24 01:27 Active Insert IV NOW Care 10/22/24 01:27 Completed Straight [In and Out Catheter] X1 Care 10/22/24 01:30 Completed Strict Intake and Output Routine Care 10/22/24 01:27 Ordered CXRP [XR chest 1V portable] Stat Exams 10/22/24 00:46 Taken EKG (ED Only) Stat Exams 10/22/24 01:27 Ordered B-Type Natriuretic Peptide Stat Lab 10/22/24 01:39 Completed Blood Culture (Lab) Stat Lab 10/22/24 01:44 Received CBC [CBC] Stat Lab 10/22/24 00:50 Completed CMP [Comprehensive Metabolic Panel] Stat Lab 10/22/24 00:50 Completed Drug Screen,Urine Stat Lab 10/22/24 02:50 Completed Irradiated Leuko Red RBC Stat Lab 10/22/24 00:50 Results LDH (Lactate Dehydrogenase) Stat Lab 10/22/24 01:39 Completed Lactic Acid [Lactate (Lactic Acid)] Stat Lab 10/22/24 00:50 Results Lipase Stat Lab 10/22/24 01:39 Completed Magnesium Stat Lab 10/22/24 00:50 Completed Partial Thromboplastin Time Stat Lab 10/22/24 02:14 Completed Phosphorous Stat Lab 10/22/24 01:39 Completed Procalcitonin Stat Lab 10/22/24 00:50 Completed Prothrombin Time with INR Stat Lab 10/22/24 02:14 Completed Troponin I Stat Lab 10/22/24 01:39 Completed Type and Screen Stat Lab 10/22/24 00:50 Results UA [Urinalysis] Stat Lab 10/22/24 02:50 Completed Urine Culture Stat Lab 10/22/24 02:50 Received Piper/Tazo 3.375 gm Premix [Zosyn] Med 10/22/24 01:27 Discontinued 3.375 gm in 50 ml IV X1 Ringers Lactated 1000 ml [Lactated Ringers] 1,000 ml Med 10/22/24 01:30 Discontinued IV 999 mls/hr Vancomycin Pharmacy to Dose Med 10/22/24 01:31 Pending 1 each IV X1 ONE Oxygen Delivery NOW RT 10/22/24 01:27 Active Vital Signs Vital signs: Vital Signs Temperature 100.0 F 10/22/24 00:34 Pulse Rate 75 10/22/24 00:34 Respiratory Rate 20 10/22/24 00:34 Blood Pressure 109/58 L 10/22/24 00:34 Pulse Oximetry (%) 100 10/22/24 00:34 Oxygen Delivery Method Room Air 10/22/24 00:34 Discharge Plan Plan Patient Disposition: Admit Acute Care w/in Hospital Problem List Clinical Impression: UTI (urinary tract infection), Community acquired pneumonia Patient/Caregiver Discharge Instructions Print Language: Lithuanian Stand Alone Forms: Lily Award Info., Patient Portal Info Letter MDM Narrative MDM hospital course: Patient was seen and evaluated by myself on arrival to the room. Diagnostic labs and imaging were ordered. Patient did have a low-grade fever with a temperature of 100.0 and lactic acid came back elevated at 2.3 with a WBC of 15.9. At this time patient met sepsis criteria therefore sepsis alert was called. Blood cultures were ordered and IV fluids and antibiotics were started. Patient's hemoglobin came back at 7.1 therefore at this time patient does not require blood transfusion, but in preparation for possible drop in hemoglobin we will order 2 PRBCs of irradiated blood products. Patient CMP also showed non-anion gap metabolic acidosis with bicarb of 17.5; with a creatinine of 1.5 as well. Patient's chest x-ray does show some consolidation of the left lower lung. Patient's urine did show 3+ bacteria and again the patient does have some hesitancy could be source of possible sepsis. 3:28: Spoke with IM team for hospital admission for concern for sepsis. Will see and evaluate patient for admission. Case disclosed with Attending Dr. Geneva Taylor PGY2 Disclaimer: Even though this this note was dictated by speech recognition and even though it was carefully revised there may still be minor errors in speech and language specialist due to voice recognition software. Medication Administration(s) Medication Administration History Pharmacy Consult (Vancomycin Pharmacy To Dose 1 Each Each) 1 each IV X1 ONE Stop: 10/22/24 01:32 Discontinued Medications Piperacillin/Tazobactam/Dextrose (Zosyn) 3.375 gm in 50 mls @ 100 mls/hr IV X1 ONE Stop: 10/22/24 01:56 Last Infusion: 10/22/24 02:59 Dose: Infused Documented By: Admin: 10/22/24 01:59 Dose: 100 mls/hr Documented By: ROSALIE Lactated Ringer's (Lactated Ringers) 1,000 mls @ 999 mls/hr IV .Q1H1M ONE Stop: 10/22/24 02:30 Last Admin: 10/22/24 02:40 Dose: 999 mls/hr Documented By: ROSALIE
--- NOTE | 2024-10-22 00:46 | XR_ITS ---
Examination: AP chest single view Technique one AP portable semiupright chest single view Date and time: October 22, 2024 0116 hours INDICATIONS: Shortness of breath today FINDINGS: Patchy areas of pneumonia, both bases and left upper lobe Normal heart size Significant osteopenia IMPRESSION: Significant bilateral pneumonia
--- NOTE | 2024-10-22 01:00 | PC.NURSE ---
PT BIB BY JOSIE FOR NOTICING BLOOD IN URINE. PT DOES HAVE A STOMA. PT STATES THAT SHE HAD A RECTAL SURGERY AND STATES THAT HER RECTUM IS CLOSED.
--- NOTE | 2024-10-22 01:03 | PC.NURSE ---
PT DENIES SOB AND CHEST PAIN. PT STATES SHE HAS RECTAL CANCER AND IT HAS SPREAD TO KIDNEYS
[2024-10-22 01:18] LABS: Lactate (Lactic Acid) 2.3 mMol/L (0.4-2.0)
[2024-10-22 01:23] LABS: Basophils # (Auto) 0.1 Thou/mm3 (0.0-0.2); Basophils % (Auto) 0 % (0-2.5); Eosinophils # (Auto) 0.3 Thou/mm3 (0.0-0.5); Eosinophils % (Auto) 2 % (0-10); Hematocrit 21.7 % (36.0-46.0); Immature Granulocytes Auto 0.06 Thou/mm3 (0.00-0.00); Lymphocytes # (Auto) 2.0 Thou/mm3 (1.0-4.8); Lymphocytes % (Auto) 13 % (10-50); Mean Corpuscular HGB Conc 32.7 g/dl (31.0-37.0); Mean Corpuscular Hemoglobin 34.5 pg (25.0-35.0); Mean Corpuscular Volume 105 fL (80-100); Monocytes # (Auto) 1.0 Thou/mm3 (0.0-0.8); Monocytes % (Auto) 6 % (0-12); Neutrophils # (Auto) 12.5 Thou/mm3 (1.8-7.7); Neutrophils % (Auto) 78 % (37-80); Nucleated Red Blood Cell # 0.00 Thou/mm3 (0.00-0.00); Nucleated Red Blood Cell % 0 /100 WBC (0); Platelet Count 306 Thou/mm3 (140-440); RDW Standard Deviation 65.7 fL (36.4-46.3); Red Blood Count 2.06 Miln/mm3 (4.00-5.20); White Blood Count 15.9 Thou/mm3 (3.6-11.0)
[2024-10-22 01:25] LABS: Hemoglobin 7.1 g/dL (12.0-16.0)
--- NOTE | 2024-10-22 01:27 | EKG_ITS ---
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
[2024-10-22 01:55] LABS: Alanine Aminotransferase < 7 U/L (10-49); Albumin, Serum 3.6 gm/dL (3.4-4.8); Albumin/Globulin Ratio 1.2 (1.2-2.2); Alkaline Phosphatase 74 U/L (46-116); Anion Gap 12 (7-16); Aspartate Amino Transferase 20 U/L (0-34); BUN/Creatinine Ratio 28 Ratio (12-20); Bilirubin,Total 0.4 mg/dL (0.3-1.2); Blood Urea Nitrogen 42 mg/dL (9-23); Calcium 8.6 mg/dL (8.3-10.6); Calcium (Corrected) 8.9 mg/dL (8.5-10.1); Carbon Dioxide 17.5 mMol/L (20.0-31.0); Chloride 108 mMol/L (98-107); Creatinine (Component) 1.5 mg/dL (0.6-1.3); Globulin 3.0 gm/dL (2.3-3.5); Glucose 144 mg/dL (74-106); Magnesium 1.7 mg/dL (1.6-2.6); Osmolality,Calculated 287 (275-295); Potassium 4.8 mMol/L (3.4-5.1); Procalcitonin 0.21 ng/ml (0.0-0.49); Sodium 137 mMol/L (136-145); Total Protein 6.6 gm/dL (5.7-8.2); eGFR 35 See Note
[2024-10-22] MEDS: PIPER/TAZO 3.375 GM PREMIX 3.375 GM/50 ML BAG IV (01:59)
[2024-10-22 02:28] LABS: B-Type Natriuretic Peptide 272 pg/mL (0-100)
[2024-10-22 02:31] LABS: LDH (Lactate Dehydrogenase) 159 U/L (120-246); Lipase 24 U/L (12-53); Phosphorous 2.8 mg/dL (2.4-5.1); Troponin I < 0.020 ng/mL (0.0-0.045)
[2024-10-22] MEDS: RINGERS LACTATED 1000 ML 1,000 ML 999 ML IV (02:40)
[2024-10-22 02:50] LABS: INR 1.2 (0.9-1.3); Partial Thromboplastin Time 25.6 Seconds (22.0-36.0); Prothrombin Time 12.8 Seconds (9.0-12.2)
[2024-10-22 03:00] LABS: Collection Type, Urine Voided; Squamous Epithelial Cell,Urine 0 /hpf (0-5)
[2024-10-22 03:17] LABS: Amphetamine/Methamp Scrn,U Negative (Negative); Barbiturate Screen,Urine Negative (Negative); Benzodiazepines Screen,Urine Negative (Negative); Benzoylecgonine Screen, Ur Negative (Negative); Fentanyl Screen,Urine Negative (Negative); Opiate Screen,Urine Negative (Negative); THC Screen,Urine Negative (Negative)
[2024-10-22 03:22] LABS: Bacteria,Urine 3+; Bilirubin,Urine Negative (Negative); Blood,Urine Trace (Negative); Clarity,Urine Turbid (Clear/Hazy); Color,Urine Yellow (Lt Yel-Yel); Glucose, Urine Negative (Negative); Ketones,Urine Negative (Negative); Leukocyte Esterase,Urine Positive (Negative); Nitrite,Urine Negative (Negative); PH,Urine 8.0 (5.0-7.0); Protein,Urine 1+ (Neg - Trace); RBC,Urine 15 /hpf (0-3); Specific Gravity,Urine 1.013 (1.001-1.035); Urobilinogen,Urine Negative mg/dL (0.0-1.0); WBC,Urine 156 /hpf (0-5)
--- NOTE | 2024-10-22 04:04 | ESHP_ITS ---
<Statement entered by Christopher Mathews MD - 10/22/24 06:34> I have discussed and was present for the essential components of the history, physical examination, diagnosis, and treatment plan with the resident. I agree with the patient's care as documented by the resident and amended herein by me. Christopher Mathews MD FACP. Documentation for date of: 10/22/24 HPI History of Present Illness Chief complaint: I was sent here for low hemoglobin History of present illness: 78-year-old female with a history of metastatic colon cancer (2022) s/p chemoradiation, CapeOx chemotherapy, and colectomy with colostomy (August 2023), CKD, DM2, HTN, hyperlipidemia, neuropathy, and prior anemia requiring transfusion. She presented from her oncology clinic after being told her hemoglobin was low and she ?needed 2 units of blood.? Oncology also noted low protein. Patient reported intermittent urinary urgency, occasional burning with urination (none in the past week), and spotting in urine for several months. She denied fever, chills, sweats, cough, shortness of breath, chest pain, abdominal pain, distention, nausea, vomiting, blood in colostomy output, melena, or hematemesis. She had no flank or suprapubic pain. No skin changes. On arrival: WBC 15.9, lactate 2.3, temp 100.0?F, HR 130s --> improved to 70?80 bpm, BP 109/58, SpO2 on room air. UA: pyuria, bacteriuria, pH 8, RBCs present. CXR prelim: left lower lobe consolidation. Creatinine 1.5 (baseline 1.6), bicarb 17.5. BNP 272 elevated. Troponin negative. Received one dose of piperacillin- tazobactam in ED, IVF, and blood cultures drawn. No transfusion yet (Hgb 7.1). ROS: * General: No fevers, chills, sweats * Resp: No cough, SOB, hemoptysis * Cardiac: No chest pain, palpitations * GI: No abdominal pain, nausea, vomiting; no change in colostomy output * : Urinary urgency, intermittent burning (not recent), intermittent spotting in urine, no flank pain * Neuro: No dizziness, lightheadedness, focal weakness, sensory loss * Skin: No rashes, wounds, ulcers Past Medical History: * Metastatic colon cancer (diagnosed 2022) ? s/p chemoradiation, CapeOx chemo, colectomy with colostomy (August 2023), pulmonary metastases; currently on capecitabine * Anemia requiring prior transfusions * Chronic kidney disease (baseline Cr ~1.6) * Diabetes mellitus type 2 * Hypertension * Hyperlipidemia * Neuropathy Past Surgical History: * Colectomy with colostomy ? August 2023 * Cholecystectomy ? 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 Exam Vital Signs Temp Pulse Resp BP Pulse Ox O2 Del Method 97.9 F 75 29 H 114/52 L 100 Room Air 10/22/24 03:14 10/22/24 03:14 10/22/24 03:14 10/22/24 03:14 10/22/24 03:14 10/22/24 03:14 Narrative Exam General: Elderly, frail, mildly pale, no acute distress HEENT: NC/AT, EOMI, anicteric sclera, MMM Neck: Supple, no masses Lungs: Clear bilaterally, no respiratory distress CV: RRR, no murmurs Abd: Soft, non-tender, non-distended; LLQ colostomy bag empty, no visible blood MSK: No joint swelling or erythema, no edema Skin: No rash, ulcers, lesions Neuro: A&O ?3, no focal deficits Psych: Cooperative, appropriate mood/affect Results: Labs 10/22/24 05:05 10/22/24 05:05 Labs: Short CBC 10/22/24 Range/Units 00:50 WBC 15.9 H (3.6-11.0) Thou/mm3 Hgb 7.1 L (12.0-16.0) g/dL Hct 21.7 L* (36.0-46.0) % Plt Count 306 (140-440) Thou/mm3 BMP 10/22/24 00:50 Sodium 137 Potassium 4.8 Chloride 108 H Carbon Dioxide 17.5 L BUN 42 H Creatinine 1.5 H Glucose 144 H Calcium 8.6 Cardiac Enzymes 10/22/24 Range/Units 01:39 Troponin I < 0.020 (0.0-0.045) ng/mL Liver Function 10/22/24 Range/Units 00:50 Total Bilirubin 0.4 (0.3-1.2) mg/dL AST 20 (0-34) U/L ALT < 7 L (10-49) U/L Alkaline Phosphatase 74 (46-116) U/L Albumin 3.6 (3.4-4.8) gm/dL Urine 10/22/24 Range/Units 02:50 Urine Color Yellow (Lt Yel-Yel) Urine Clarity Turbid A (Clear/Hazy) Urine pH 8.0 H (5.0-7.0) Ur Specific Neon 1.013 (1.001-1.035) Urine Protein 1+ A (Neg - Trace) Urine Glucose (UA) Negative (Negative) Quality Measures Quality Measures VTE prophylaxis Advance care planning discussed with:: patient and child Medications Home Medications and Allergies Allergies Allergy/AdvReac Type Severity Reaction Status Date / Time No Known Allergies Allergy Verified 10/21/24 23:27 Visit Medications Vancomycin/Sodium Chloride (Vancomycin/Ns 1 Gm Ivpb) 200 mls @ 200 mls/hr IV X1 ONE Stop: 10/22/24 04:44 Pharmacy Consult (Vancomycin Pharmacy To Dose 1 Each Each) 1 each IV X1 ONE Stop: 10/22/24 01:32 Discontinued Medications Piperacillin/Tazobactam/Dextrose (Zosyn) 3.375 gm in 50 mls @ 100 mls/hr IV X1 ONE Stop: 10/22/24 01:56 Last Infusion: 10/22/24 02:59 Dose: Infused Lactated Ringer's (Lactated Ringers) 1,000 mls @ 999 mls/hr IV .Q1H1M ONE Stop: 10/22/24 02:30 Last Admin: 10/22/24 02:40 Dose: 999 mls/hr Assessment & Plan Plan 78F with metastatic colon cancer on chemo, CKD, DM2, HTN, anemia, presenting from oncology clinic for low hemoglobin and abnormal labs, found to have SIRS (WBC 15.9, tachycardia) likely due to UTI. UA positive for pyuria/bacteriuria. Lactate 2.3, creatinine stable for baseline, BNP mildly elevated. Received Zosyn in ED; pending culture results. # SIRS, likely infectious Meets SIRS criteria with WBC 15.9 and tachycardia Suspected urinary tract infection as source. No end-organ dysfunction; does not meet sepsis criteria. Sofa score 1 Plan: * Continue Zosyn (10/22? ) * Follow up blood/urine cultures and CXR final read * Repeat lactate in 4h until normalized * Strict I/O, vitals q6h * Maintain neutropenic precautions, reverse isolation # Urinary tract infection UA with significant pyuria, bacteriuria, alkaline pH Symptoms of urgency, intermittent burning, and hematuria. Immunocompromised from chemo. Plan: * Continue empiric coverage per plan above * Urine culture follow-up * Encourage oral hydration if tolerated # Anemia, unspecified type Likely multifactorial: chronic disease, chemotherapy, CKD. Hgb 7.1; baseline higher but above transfusion threshold. Ordered irradiated PRBCs still on way from [facility] Plan: * Monitor CBC daily * Transfuse irradiated PRBCs if Hgb <7 or symptomatic * Hemoglobin most likely will drop in the morning lab, should transfuse once labs are back * Consider continuing iron supplementation # Metastatic colon cancer On capecitabine, followed by oncology; currently suboptimal dosing noted in recent oncology clinic note. Plan: * Hold chemotherapy while inpatient * Consider oncology consult for treatment coordination # CKD, stage 3 Baseline Cr ~1.6, stable. Plan: * Avoid nephrotoxins * Renally dose medications * Monitor BMP daily # DM2 Home Basaglar insulin; well controlled per patient. Plan: * Continue basal insulin with sliding scale * Monitor glucose AC/HS # HTN On carvedilol and lisinopril per patient; BP stable. Plan: * Continue carvedilol once med rec's are back * Hold lisinopril until infection resolves and renal function stable Health Maintenance: Disposition: Admit to telemetry Diet: Regular diet, Thromboprophylaxis: Heparin SQ, currently held GI prophylaxis: PPI Code Status: DNI, yes to compressions ----- Plan discussed with attending physician Dr. Reid Abdullahi MD PGY-1 Internal Medicine
[2024-10-22 04:17] LABS: Reflex Lactate? Y
[2024-10-22] MEDS: VANCOMYCIN/NS 1 GM IVPB 200 ML IV (04:23)
[2024-10-22] MEDS: RINGERS LACTATED 1000 ML 1,000 ML 75 ML IV (04:30)
[2024-10-22 05:09] LABS: Lactate (Lactic Acid) 1.2 mMol/L (0.4-2.0)
[2024-10-22 05:16] LABS: Basophils # (Auto) 0.0 Thou/mm3 (0.0-0.2); Basophils % (Auto) 0 % (0-2.5); Eosinophils # (Auto) 0.3 Thou/mm3 (0.0-0.5); Eosinophils % (Auto) 2 % (0-10); Immature Granulocytes Auto 0.04 Thou/mm3 (0.00-0.00); Lymphocytes # (Auto) 1.9 Thou/mm3 (1.0-4.8); Lymphocytes % (Auto) 14 % (10-50); Mean Corpuscular HGB Conc 33.2 g/dl (31.0-37.0); Mean Corpuscular Hemoglobin 34.0 pg (25.0-35.0); Mean Corpuscular Volume 103 fL (80-100); Monocytes # (Auto) 0.9 Thou/mm3 (0.0-0.8); Monocytes % (Auto) 6 % (0-12); Neutrophils # (Auto) 10.3 Thou/mm3 (1.8-7.7); Neutrophils % (Auto) 77 % (37-80); Nucleated Red Blood Cell # 0.00 Thou/mm3 (0.00-0.00); Nucleated Red Blood Cell % 0 /100 WBC (0); Platelet Count 326 Thou/mm3 (140-440); RDW Standard Deviation 63.4 fL (36.4-46.3); Red Blood Count 1.94 Miln/mm3 (4.00-5.20); White Blood Count 13.4 Thou/mm3 (3.6-11.0)
[2024-10-22 05:29] LABS: Anion Gap 11 (7-16); BUN/Creatinine Ratio 28 Ratio (12-20); Blood Urea Nitrogen 39 mg/dL (9-23); Calcium 8.1 mg/dL (8.3-10.6); Carbon Dioxide 19.1 mMol/L (20.0-31.0); Chloride 111 mMol/L (98-107); Creatinine (Component) 1.4 mg/dL (0.6-1.3); Estimated Creatinine Clearance 25.9 mL/min (>60); Glucose 85 mg/dL (74-106); Magnesium 1.6 mg/dL (1.6-2.6); Osmolality,Calculated 289 (275-295); Potassium 4.4 mMol/L (3.4-5.1); Sodium 141 mMol/L (136-145); eGFR 38 See Note
[2024-10-22 05:56] LABS: Hematocrit 19.9 % (36.0-46.0); Hemoglobin 6.6 g/dL (12.0-16.0)
[2024-10-22] MEDS: HEPARIN SOD INJ 5000 UNIT/ML VIAL SC (09:43)
--- NOTE | 2024-10-22 09:45 | ESPR_ITS ---
<Statement entered by Sherley Gordon MD - 11/03/24 07:43> I reviewed above note and agree with findings and plans. I have also personally examined the patient with medicine team and went over assessment and plan with medical team including internal communications intern and resident physician. <Statement entered by Kartik Ceballos MD - 10/22/24 14:49> Pt is seen at bedside, pt was diagnosed with colon cancer in 2023 and underwent surgery s/p colostomy bag. Pt started chemotherapy approximately 4 months ago. At the cancer center pt was found to have low Hgb require transfusion, 1 unit pRBC is ordered. Pt also have been having intermittent post-menopausal bleeding. Due to high suspicion of endometerial cancer, will order TVUS. Pt will likely need to follow up outpatient with OBGYN for further work up if need. Because UA is positive for UTI, will start pt on IV antibiotics. Will closely monitor CBC, pt is in reverse isolation. Assessment and plan discussed with my attending physician Dr. Evan Ceballos (PGY-2)- Internal medicine resident Documentation for date of: 10/22/24 Subjective Subjective Interval history: 78-year-old female past medical history of metastatic colon cancer, s/p chemoradiation (CAPOX chemo), colectomy, colostomy since August 2024, CKD, type 2 diabetes, neuropathy, hypertension, hyperlipidemia, anemia chronic requiring transfusion. Presented to ED by her oncologist for low hemoglobin and intermittent UTI symptoms. Admitted for for transfusion and UTI management. The patient was seen and examined at bedside. No active complaint. Lab were examined reveal hemoglobin was 6.6 and hematocrit 19.9, recieved 2 units pRBC transfusion. Discussed with patient and family at bedside about high suspicion of endometrial cancer due patient history of metastatic colon cancer and postmenpausal vaginal bleeding. Informed the patient about plan to do transvaginal ultrasound for further assessment of endometrial lining, given positive suspicion based on clincal presentation and medical history. She was receptive to the plan and understands the next steps. . Exam Vital Signs Temp Pulse Resp BP Pulse Ox O2 Del Method 97.1 F 71 16 127/71 100 Room Air 10/22/24 09:32 10/22/24 09:32 10/22/24 09:32 10/22/24 09:32 10/22/24 09:32 10/22/24 08:00 Narrative Exam General: Elderly, frail, mildly pale, no acute distress HEENT: NC/AT, EOMI, anicteric sclera, MMM Neck: Supple, no masses Lungs: Clear bilaterally, no respiratory distress CV: RRR, no murmurs Abd: Soft, non-tender, non-distended; LLQ colostomy bag with soft stool, no visible blood MSK: No joint swelling or erythema, no edema Skin: No rash, ulcers, lesions Neuro: A&O ?3, no focal deficits Psych: Cooperative, appropriate mood/affect Objective Labs 10/22/24 05:05 10/22/24 05:05 Labs: Laboratory Results - last 24 hr 10/22/24 10/22/24 10/22/24 00:50 01:39 02:14 WBC 15.9 H RBC 2.06 L Hgb 7.1 L Hct 21.7 L* MCV 105 H MCH 34.5 MCHC 32.7 RDW Std Deviation 65.7 H Plt Count 306 Neut % (Auto) 78 Lymph % (Auto) 13 [place] % (Auto) 6 Eos % (Auto) 2 Baso % (Auto) 0 Neut # (Auto) 12.5 H Lymph # (Auto) 2.0 [place] # (Auto) 1.0 H Eos # (Auto) 0.3 Baso # (Auto) 0.1 Immature Gran # (Auto) 0.06 H Absolute Nucleated RBC 0.00 Immature Gran % 0 Nucleated RBC % 0 PT 12.8 H INR 1.2 APTT 25.6 Sodium 137 Potassium 4.8 Chloride 108 H Carbon Dioxide 17.5 L Anion Gap 12 BUN 42 H Creatinine 1.5 H Estim Creat Clear Calc Not Performed. eGFR 35 L BUN/Creatinine Ratio 28 H Glucose [address] Glu mg/dL Hemoglobin A1c Calculated Osmolality 287 Lactic Acid 2.3 H Calcium 8.6 Corrected Calcium 8.9 Phosphorus 2.8 Magnesium 1.7 Total Bilirubin 0.4 AST 20 ALT < 7 L Alkaline Phosphatase 74 Lactate Dehydrogenase 159 Troponin I < 0.020 B-Natriuretic Peptide 272 H Total Protein 6.6 Albumin 3.6 Globulin 3.0 Albumin/Globulin Ratio 1.2 Lipase 24 Procalcitonin 0.21 Ur Collection Type Urine Color Urine Clarity Urine pH Ur Specific [place] Urine Protein Urine Glucose (UA) Urine Ketones Urine Blood Urine Nitrite Urine Bilirubin Urine Urobilinogen (Auto) Ur Leukocyte Esterase Urine RBC Urine WBC Ur Squamous Epith Cells Urine Bacteria Urine Opiates Screen Urine Fentanyl Screen Ur Barbiturates Screen U Amphetamin/Meth Scrn U Benzodiazepines Scrn U Cocaine Metab Screen U Marijuana (THC) Screen Blood Type A Positive Antibody Screen NEGATIVE Crossmatch See Detail Blood Bank Wristband ID Yes 10/22/24 10/22/24 02:50 05:05 WBC 13.4 H RBC 1.94 L* Hgb 6.6 L* Hct 19.9 L* MCV 103 H MCH 34.0 MCHC 33.2 RDW Std Deviation 63.4 H Plt Count 326 Neut % (Auto) 77 Lymph % (Auto) 14 [place] % (Auto) 6 Eos % (Auto) 2 Baso % (Auto) 0 Neut # (Auto) 10.3 H Lymph # (Auto) 1.9 [place] # (Auto) 0.9 H Eos # (Auto) 0.3 Baso # (Auto) 0.0 Immature Gran # (Auto) 0.04 H Absolute Nucleated RBC 0.00 Immature Gran % 0 Nucleated RBC % 0 PT INR APTT Sodium 141 Potassium 4.4 Chloride 111 H Carbon Dioxide 19.1 L Anion Gap 11 BUN 39 H Creatinine 1.4 H Estim Creat Clear Calc 25.9 L eGFR 38 L BUN/Creatinine Ratio 28 H Glucose [address] Glu mg/dL Cancelled Hemoglobin A1c Cancelled Calculated Osmolality 289 Lactic Acid 1.2 Calcium 8.1 L Corrected Calcium Phosphorus Magnesium 1.6 Total Bilirubin AST ALT Alkaline Phosphatase Lactate Dehydrogenase Troponin I B-Natriuretic Peptide Total Protein Albumin Globulin Albumin/Globulin Ratio Lipase Procalcitonin Ur Collection Type Voided Urine Color Yellow Urine Clarity Turbid A Urine pH 8.0 H Ur Specific [place] 1.013 Urine Protein 1+ A Urine Glucose (UA) Negative Urine Ketones Negative Urine Blood Trace Urine Nitrite Negative Urine Bilirubin Negative Urine Urobilinogen (Auto) Negative Ur Leukocyte Esterase Positive Urine RBC 15 H Urine WBC 156 H Ur Squamous Epith Cells 0 Urine Bacteria 3+ A Urine Opiates Screen Negative Urine Fentanyl Screen Negative Ur Barbiturates Screen Negative U Amphetamin/Meth Scrn Negative U Benzodiazepines Scrn Negative U Cocaine Metab Screen Negative U Marijuana (THC) Screen Negative Blood Type Antibody Screen Crossmatch Blood Bank Wristband ID Quality Measures Quality Measures VTE prophylaxis Advance care planning discussed with:: patient and child (2 daughters ) Assessment & Plan Assessment Current Active Medications: Generic Name Dose Route Start Last Admin Trade Name Clarissa PRN Reason Stop Dose Admin Acetaminophen 650 mg 10/22/24 03:59 Acetaminophen 325 Mg Tablet PO 11/21/24 03:58 Q6H PRN Fever >100.4 Acetaminophen 650 mg 10/22/24 03:59 Acetaminophen 325 Mg Tablet PO 11/21/24 03:58 Q6H PRN PAIN SCALE 1-3 (mild Hydrocodone Bitart/Acetaminophen 1 tab 10/22/24 03:59 Hydrocodone/Apap 5/325 Tablet PO 10/27/24 03:58 Q4HR PRN Pain Scale 4-10 Dextrose 25 ml 10/22/24 04:15 Dextrose 50%-Water Inj 50 Ml Syringe IV 11/21/24 04:14 Q15MIN PRN BG 50-70 responsive npo pt Dextrose 50 ml 10/22/24 04:15 Dextrose 50%-Water Inj 50 Ml Syringe IV 11/21/24 04:14 Q15MIN PRN BG <50 OR BG <70 & pt unresponsive Glucagon 1 mg 10/22/24 04:15 Glucagon Inj 1 Mg Vial IM Q15MIN PRN BG <70, and no IV access Heparin Sodium (Porcine) 5,000 unit 10/22/24 09:00 10/22/24 09:43 Heparin Sod Inj 5000 Unit/Ml Vial SC 11/05/24 08:59 5,000 unit Q12HR MARION Administration Lactated Ringer's 1,000 mls @ 75 mls/hr 10/22/24 04:00 10/22/24 04:30 Lactated Ringers IV 11/21/24 03:59 75 mls/hr .[id number] MARION Administration Insulin Human Lispro 0 unit 10/22/24 07:30 10/22/24 08:44 Insulin Lispro (Admelog) 1 Unit/0.01 Ml Unit SC 11/21/24 07:29 Not Given AC MARION Protocol Ondansetron HCl 4 mg 10/22/24 03:59 Ondansetron Inj 2 Mg/Ml Inj 2 Ml IVP 11/21/24 03:58 Q6H PRN NAUSEA OR VOMITING Protocol Pantoprazole Sodium 40 mg 10/22/24 09:00 10/22/24 09:43 Pantoprazole Inj 40 Mg Vial IVP 11/21/24 08:59 40 mg QDAY MARION Administration Plan 78-year-old female past medical history of metastatic colon cancer, s/p chemoradiation (CAPOX chemo), colectomy, colostomy since August 2024, CKD, type 2 diabetes, neuropathy, hypertension, hyperlipidemia, anemia chronic requiring transfusion. Presented to ED by her oncologist for low hemoglobin and intermittent UTI symptoms. Admitted for for transfusion and UTI management. #Acute on chronic anemia #Multifactorial likely 2/2 to malignancy, chemoradiation, nutritional loss, CKD # Microcytic anemia Patient has a history of metastatic colon cancer on chemotheray, which usually causes pancytopenia. Patient also colostomy and chronic kidney disease mild contribute to low hemoglobin. labs downtrending Hg 2.06 to 1.94, Hct 21.7 to 1.9, MCV 105-> 103. Hx of chronic anemia requiring transfusion in the past. Patient on home medication is ferrous sulfate by contributing also continue. Plan - 3 units pRBC t - Continue to monitor Hb levels - Transfuse irradiated PRBCs if Hgb <7 or symptomatic Hb<7 transfuse - Monitor colostomy bag for hematochezia - Iron panel - Vit B12 #SIRS likely 2/2 UTI Patient with 2 out of 4 criteria for SIRS: WBC of 15.9, RR of 21. UA is positive for pyuria, bacteriuria an leukocytes esterase Plan - Started on ceftriaxone (10/22/24- - Zosyn x1 given on 10/22/24 - Pending urine culture # Chronic stasis kidney disease, stage IIIa #Postchemotherapy THOMAS Patient has no history of elevated creatinine for the last 3months ranging between 1.4 and 1.7 (baseline likely 1.6). Patient GFR for last 3 months is between 30 and 38. Concern for possible stage III, moderatly decreased kidney function. Due to patient history of metastatic colon cancer and the use Capecitabine contributes to kidney damage likely due to postchemotherapy THOMAS. Plan - Monitor BMP -Avoid nephrotoxins -Renal dose medications #Metastatic colon cancer # High suspicion for endometrial malignancy Patient on history of metastatic colon cancer on chemo medication capecitabine. She is postmenopausal female endorsing intermittent vagina bleeding. Given the clinical history of metastatic colon cancer and clinical presentation og low Hb, there is suspect high suspicion for endometrial malignancy. Plan - Transvaginal ultrasound - F/u outpatient gynecology #Insulin-dependent diabetes mellitus type 2 #Diabetic neuropathy Patient has a history of type 2 diabetes mellitus, however she managed with Basaglar insulin at home well-controlled per patient. Blood glucose of to glucose of 128. Plan -On insulin sliding scale -Pending med rec - Monitor glucose AC/HS #Primary hypertension On carvedilol and lisinopril per patient; BP stable Plan - Continue carvedilol once med rec's are back - Hold lisinopril until infection resolves and renal function stable Health Maintenance: Disposition: Admit to telemetry Diet: Regular diet, Thromboprophylaxis: SCD GI prophylaxis: PPI Code Status: DNI, yes to compressions Patient seen and assessed under supervision of attending physician Dr. Gordon and discuss with senior resident Dr. Verdugo PGY-2 Jessica Dumas MD PGY-1, Internal Medicine
--- NOTE | 2024-10-22 09:56 | PC.SS ---
Update: Patient currently receiving IV antibiotics.
[2024-10-22 10:09] LABS: Misc Send Out* See Sep Rpt
--- NOTE | 2024-10-22 11:21 | PC.SS ---
ENVIRONMENTAL INSPECTOR conducted bedside contact with the patient conduct initial assessment and to discuss discharge planning.? At bedside with patient was daughter, Steven Connolly.? Patient?s primary language is Ukrainian.? Assessment information obtained by the patient?s daughter.? Patient resides at home with daughter.? Patient utilizes a walker to assist with ambulation and possesses a wheelchair for mobility when needed.? Patient does not utilize home oxygen.? Patient requires assistance with ADL?s.? Patient?s daughter assists the patient with completion of ADL?s.? Patient?s surrogate medical decision maker is Albertina Rae . ?Patient?s PCP is Radha Cristobal.? Patient utilizes [facility]) for medication services.? Plan is for the patient to return home at the time of discharge.? Family will provide transportation on behalf of the patient. ?If home health recommended no preferred agency identified.? No further discharge needs identified by the patient?s daughter.? No further intervention required at this time, community mental health social worker will be available to address any further concerns.? Next of Kin: Albertina Rae D/C Plan: Home
--- NOTE | 2024-10-22 11:23 | PC.SS ---
Home address: [address] [place] [id number]. .
--- NOTE | 2024-10-22 13:16 | XR_ITS ---
Examination: Transvaginal ultrasound of the pelvis, complete Technique: Transvaginal sonographic images pelvis performed using pacheco scale imaging Exam date and time: October 22, 2024 1626 hours INDICATIONS: Postmenopausal bleeding beginning one month ago FINDINGS: Uterus 8.1 cm, visualization Limited secondary to limited insertion of the transvaginal probe Ovaries are not visualized IMPRESSION: Technically severely limited study Recommend transabdominal pelvic sonography follow-up
[2024-10-22] MEDS: cefTRIAXone/D5w 1gm IV premix 1 GM/50 ML BAG IV (14:42)
[2024-10-22 16:52] LABS: Hematocrit 30.8 % (36.0-46.0); Hemoglobin 10.7 g/dL (12.0-16.0)
[2024-10-22] MEDS: ACETAMINOPHEN 325 MG TABLET 650 MG PO (20:20)
[2024-10-23] VITALS (7 sets, daily range): BP systolic 130–163; BP diastolic 58–75; PULSE 52–80; RESP 9–100; TEMP 36.1–36.7; O2SAT 100; BMI 25.0
[2024-10-23 05:31] LABS: Basophils # (Auto) 0.1 Thou/mm3 (0.0-0.2); Basophils % (Auto) 0 % (0-2.5); Eosinophils # (Auto) 0.3 Thou/mm3 (0.0-0.5); Eosinophils % (Auto) 3 % (0-10); Hematocrit 30.9 % (36.0-46.0); Hemoglobin 10.3 g/dL (12.0-16.0); Immature Granulocytes Auto 0.04 Thou/mm3 (0.00-0.00); Lymphocytes # (Auto) 1.5 Thou/mm3 (1.0-4.8); Lymphocytes % (Auto) 12 % (10-50); Mean Corpuscular HGB Conc 33.3 g/dl (31.0-37.0); Mean Corpuscular Hemoglobin 32.3 pg (25.0-35.0); Mean Corpuscular Volume 97 fL (80-100); Monocytes # (Auto) 0.8 Thou/mm3 (0.0-0.8); Monocytes % (Auto) 6 % (0-12); Neutrophils # (Auto) 9.9 Thou/mm3 (1.8-7.7); Neutrophils % (Auto) 79 % (37-80); Nucleated Red Blood Cell # 0.00 Thou/mm3 (0.00-0.00); Nucleated Red Blood Cell % 0 /100 WBC (0); Platelet Count 295 Thou/mm3 (140-440); RDW Standard Deviation 71.7 fL (36.4-46.3); Red Blood Count 3.19 Miln/mm3 (4.00-5.20); White Blood Count 12.5 Thou/mm3 (3.6-11.0)
[2024-10-23 06:04] LABS: Folate 7.31 ng/mL (>5.38); Vitamin B12 666 pg/mL (211-911)
[2024-10-23 06:20] LABS: Anion Gap 10 (7-16); BUN/Creatinine Ratio 20 Ratio (12-20); Blood Urea Nitrogen 26 mg/dL (9-23); Calcium 8.9 mg/dL (8.3-10.6); Carbon Dioxide 18.3 mMol/L (20.0-31.0); Chloride 112 mMol/L (98-107); Creatinine (Component) 1.3 mg/dL (0.6-1.3); Estimated Creatinine Clearance 28.0 mL/min (>60); Glucose 138 mg/dL (74-106); Magnesium 2.0 mg/dL (1.6-2.6); Osmolality,Calculated 286 (275-295); Phosphorous 3.4 mg/dL (2.4-5.1); Potassium 4.3 mMol/L (3.4-5.1); Sodium 140 mMol/L (136-145); eGFR 42 See Note
--- NOTE | 2024-10-23 07:23 | ESPR_ITS ---
<Statement entered by Sherley Gordon MD - 11/07/24 15:04> I reviewed above note and agree with findings and plans. I have also personally examined the patient with medicine team and went over assessment and plan with medical team including internet marketing consultant and resident physician. <Statement entered by Kartik Ceballos MD - 10/23/24 16:09> Patient seen at bedside this morning. Patient is symptomatically stable denies any pain hemoglobin is stable. Transvaginal ultrasound was indeterminant and were unable to measure the endometrial stripe therefore per OB recommendations will follow-up with an MRI. Patient was seen and examined by me personally. I have directly supervised and reviewed documentation by the team resident and agree with its findings. ------- Plan of care was discussed with the attending, Dr. Evan Ceballos, PGY-2 Documentation for date of: 10/23/24 Subjective Subjective Interval history: 78-year-old female past medical history of metastatic colon cancer, s/p chemoradiation (CAPOX chemo), colectomy, colostomy since August 2024, CKD, type 2 diabetes, neuropathy, hypertension, hyperlipidemia, anemia chronic requiring transfusion. Presented to ED by her oncologist for low hemoglobin and intermittent UTI symptoms. Admitted for for transfusion and UTI management. Overnight, no acute events, patient was stable and saturating well on room air. Posttransfusion H&H was stable. The patient was seen and examined at bedside with her 2 daughters present. She have no acute complaints, denies weakness, lightheadedness, shortness of breath, hematuria, melena, hematochezia. Patient and family was informed about transvaginal ultrasound findings for which Dr. Rubin was consulted for. Advised patient to follow-up with head grinder for further evaluation and pending recommendations from head grinder. Exam Vital Signs Temp Pulse Resp BP Pulse Ox O2 Del Method 97.0 F 52 L 21 H 130/58 L 100 Room Air 10/23/24 04:00 10/23/24 04:00 10/23/24 04:00 10/23/24 04:00 10/23/24 04:00 10/23/24 04:00 Narrative Exam General: Elderly, frail, mildly pale, no acute distress HEENT: NC/AT, EOMI, anicteric sclera, MMM Neck: Supple, no masses Lungs: Clear bilaterally, no respiratory distress CV: RRR, no murmurs Abd: Soft, non-tender, non-distended; LLQ colostomy bag clean, no visible blood MSK: No joint swelling or erythema, no edema Skin: No rash, ulcers, lesions Neuro: A&O ?3, no focal deficits Psych: Cooperative, appropriate mood/affect Objective Labs 10/23/24 04:58 10/23/24 04:58 Labs: Laboratory Results - last 24 hr 10/22/24 10/22/24 10/23/24 00:50 16:14 04:58 WBC 12.5 H RBC 3.19 L Hgb 10.7 L D 10.3 L Hct 30.8 L D 30.9 L MCV 97 MCH 32.3 MCHC 33.3 RDW Std Deviation 71.7 H Plt Count 295 D Neut % (Auto) 79 Lymph % (Auto) 12 [place] % (Auto) 6 Eos % (Auto) 3 Baso % (Auto) 0 Neut # (Auto) 9.9 H Lymph # (Auto) 1.5 [place] # (Auto) 0.8 Eos # (Auto) 0.3 Baso # (Auto) 0.1 Immature Gran # (Auto) 0.04 H Absolute Nucleated RBC 0.00 Immature Gran % 0 Nucleated RBC % 0 Sodium 140 Potassium 4.3 Chloride 112 H Carbon Dioxide 18.3 L Anion Gap 10 BUN 26 H Creatinine 1.3 Estim Creat Clear Calc 28.0 L eGFR 42 L BUN/Creatinine Ratio 20 Glucose 138 H D Calculated Osmolality 286 Calcium 8.9 Phosphorus 3.4 Magnesium 2.0 Vitamin B12 666 Folate 7.31 Blood Type A Positive Antibody Screen NEGATIVE Crossmatch See Detail Blood Bank Wristband ID Yes Quality Measures Quality Measures VTE prophylaxis Advance care planning discussed with:: patient and child Assessment & Plan Assessment Current Active Medications: Generic Name Dose Route Start Last Admin Trade Name Freq PRN Reason Stop Dose Admin Acetaminophen 650 mg 10/22/24 03:59 10/22/24 20:20 Acetaminophen 325 Mg Tablet PO 11/21/24 03:58 650 mg Q6H PRN Administration Fever >100.4 Acetaminophen 650 mg 10/22/24 03:59 Acetaminophen 325 Mg Tablet PO 11/21/24 03:58 Q6H PRN PAIN SCALE 1-3 (mild Hydrocodone Bitart/Acetaminophen 1 tab 10/22/24 03:59 Hydrocodone/Apap 5/325 Tablet PO 10/27/24 03:58 Q4HR PRN Pain Scale 4-10 Dextrose 25 ml 10/22/24 04:15 Dextrose 50%-Water Inj 50 Ml Syringe IV 11/21/24 04:14 Q15MIN PRN BG 50-70 responsive npo pt Dextrose 50 ml 10/22/24 04:15 Dextrose 50%-Water Inj 50 Ml Syringe IV 11/21/24 04:14 Q15MIN PRN BG <50 OR BG <70 & pt unresponsive Glucagon 1 mg 10/22/24 04:15 Glucagon Inj 1 Mg Vial IM Q15MIN PRN BG <70, and no IV access Lactated Ringer's 1,000 mls @ 75 mls/hr 10/22/24 04:00 10/22/24 04:30 Lactated Ringers IV 11/21/24 03:59 75 mls/hr .[id number] MARION Administration Ceftriaxone Sodium/Dextrose 1 gm in 50 mls @ 100 mls/hr 10/22/24 13:56 10/22/24 14:42 Rocephin/D5w 1gm Iv Premix IV 10/29/24 13:55 100 mls/hr QDAY MARION Administration Insulin Human Lispro 0 unit 10/22/24 07:30 10/22/24 18:16 Insulin Lispro (Admelog) 1 Unit/0.01 Ml Unit SC 11/21/24 07:29 Not Given AC MARION Protocol Ondansetron HCl 4 mg 10/22/24 03:59 Ondansetron Inj 2 Mg/Ml Inj 2 Ml IVP 11/21/24 03:58 Q6H PRN NAUSEA OR VOMITING Protocol Pantoprazole Sodium 40 mg 10/22/24 09:00 10/22/24 09:43 Pantoprazole Inj 40 Mg Vial IVP 11/21/24 08:59 40 mg QDAY MARION Administration Plan 78-year-old female past medical history of metastatic colon cancer, s/p chemoradiation (CAPOX chemo), colectomy, colostomy since August 2024, CKD, type 2 diabetes, neuropathy, hypertension, hyperlipidemia, anemia chronic requiring transfusion. Presented to ED by her oncologist for low hemoglobin and intermittent UTI symptoms. Admitted for for transfusion and UTI management. #Acute on chronic anemia #Multifactorial likely 2/2 to malignancy, chemoradiation, nutritional loss, CKD # Microcytic anemia Patient has a history of metastatic colon cancer on chemotheray, which usually causes pancytopenia. Patient also colostomy and chronic kidney disease mild contribute to low hemoglobin. labs downtrending Hg 2.06 to 1.94, Hct 21.7 to 1.9, MCV 105-> 103. Hx of chronic anemia requiring transfusion in the past. Patient on home medication is ferrous sulfate by contributing also continue. Posttransfusion H&H improved significantly to Hb 10.7 and Hct 30.8. Plan - 3 units pRBC transfusion - Continue to monitor Hb levels - Transfuse irradiated PRBCs if Hgb <7 or symptomatic Hb<7 transfuse - Monitor colostomy bag for hematochezia - Iron panel - Vit B12 #SIRS likely 2/2 UTI Patient with 2 out of 4 criteria for SIRS: WBC of 15.9, RR of 21. UA is positive for pyuria, bacteriuria an leukocytes esterase. Urine culture grew negative mariana, will continue with Regimen Plan - Started on ceftriaxone (10/22/24- - Zosyn x1 given on 10/22/24 -Urine culture- completed # Chronic stasis kidney disease, stage IIIa #Postchemotherapy THOMAS Patient has no history of elevated creatinine for the last 3months ranging between 1.4 and 1.7 (baseline likely 1.6). Patient GFR for last 3 months is between 30 and 38. Concern for possible stage III, moderately decreased kidney function. Due to patient history of metastatic colon cancer and the use Capecitabine contributes to kidney damage likely due to postchemotherapy THOMAS. Plan - Monitor BMP -Avoid nephrotoxins -Renal dose medications #Metastatic colon cancer # High suspicion for endometrial malignancy Patient on history of metastatic colon cancer on chemo medication capecitabine. She is postmenopausal female endorsing intermittent vagina bleeding. Given the clinical history of metastatic colon cancer and clinical presentation og low Hb, there is suspect high suspicion for endometrial malignancy. Plan - Transvaginal ultrasound- pending readings - Animal Pathologist consulted: Pending recs - F/u outpatient gynecology #Insulin-dependent diabetes mellitus type 2 #Diabetic neuropathy Patient has a history of type 2 diabetes mellitus, however she managed with Basaglar insulin at home well-controlled per patient. Blood glucose of to glucose of 128. Plan -On insulin sliding scale -Pending med rec -Monitor glucose AC/HS #Primary hypertension On carvedilol and lisinopril per patient; BP stable Plan - Continue carvedilol once med rec's are back - Hold lisinopril until infection resolves and renal function stable Health Maintenance: Disposition: Admit to telemetry Diet: Regular diet, Thromboprophylaxis: SCD GI prophylaxis: PPI Code Status: DNI, yes to compressions Patient seen and assessed under supervision of attending physician Dr. Gordon and discuss with senior resident Dr. Ceballos PGY-2 Jessica Dumas MD PGY-1, Internal Medicine
[2024-10-23] MEDS: INSULIN LISPRO (AdmeLOG) 1 UNIT/0.01 ML UNIT SC ×3 (07:57→17:24)
[2024-10-23] MEDS: cefTRIAXone/D5w 1gm IV premix 1 GM/50 ML BAG IV (09:09)
[2024-10-23 14:12] LABS: Iron 31 mcg/dL (50-170)
[2024-10-23 14:38] LABS: Path Review Blood Smear Sent to Pathologist
[2024-10-23 16:29] LABS: Percent Iron Saturation 16 % (20-55); Total Iron Binding Capacity 192 mcg/dL (250-425); Unsaturated Iron Binding 161 (225-295)
--- NOTE | 2024-10-23 21:04 | PD.GYNCONS ---
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 She has a complex medical history including status post colectomy with colostomy (August 2023), chronic kidney disease, type 2 diabetes mellitus, hypertension, hyperlipidemia, neuropathy, and chronic anemia. She is currently receiving IV Zosyn. The Medicine Service has requested gynecologic consultation to review pelvic imaging and evaluate for possible uterine malignancy. A transvaginal ultrasound was performed today but was technically limited due to difficulty with probe insertion. The patient has no history of uterine bleeding or other gynecologic symptoms. Bedside pelvic exam could not be performed due to communication limitations and patient intolerance. Pertinent Studies: TVUS (10/23/2024): Uterus measures 8.1 cm. Ovaries not visualized. Study severely limited due to suboptimal probe insertion. Awaiting pelvic MRI for further evaluation. cc:: cc: Carlos Rubin MD Meds Home Medications and Allergies Home Medications ?Medication ?Instructions ?Recorded ?Confirmed ?Type capecitabine 500 mg tablet 1,000 mg PO BID 10/22/24 10/22/24 History carvedilol 3.125 mg tablet 3.125 mg PO BID 10/22/24 10/22/24 History ferrous sulfate 325 mg (65 mg 325 mg PO DAILY 10/22/24 10/22/24 History iron) tablet (FeroSul) gabapentin 300 mg capsule 300 mg PO DAILY 10/22/24 10/22/24 History lisinopril 40 mg tablet 40 mg PO DAILY 10/22/24 10/22/24 History nifedipine 30 mg tablet,extended 30 mg PO HS 10/22/24 10/22/24 History release Allergies Allergy/AdvReac Type Severity Reaction Status Date / Time No Known Allergies Allergy Verified 10/21/24 23:27 Exam - 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 Assessment: Rule out Uterine Malignancy: Transvaginal ultrasound severely limited; uterus measures 8.1 cm, ovaries not seen. No vaginal bleeding or other gynecologic symptoms reported. Not a candidate for surgical evaluation or uterine sampling due to current medical instability. Awaiting MRI for further characterization. Metastatic Colon Cancer, S/P Colectomy with Colostomy (August 2023): Admitted with SIRS due to suspected urosepsis. Active infection being managed with broad-spectrum antibiotics (Zosyn). P ? Plan: Await results of pelvic MRI as per radiology recommendation. No immediate gynecologic intervention indicated at this time. If MRI reveals uterine or pelvic mass, consider referral to facility with gynecologic oncology services. Re-evaluation once imaging is available and patient status allows. Unable to perform bedside pelvic exam unless patient condition improves and exam is tolerated.
[2024-10-24] VITALS (9 sets, daily range): BP systolic 135–160; BP diastolic 66–85; PULSE 56–129; RESP 13–99; TEMP 35.9–36.2; O2SAT 99–100; BMI 24.0
--- NOTE | 2024-10-24 | XR_ITS ---
Examination: MRI pelvis, without contrast Date and time of exam: December 24, 2024 1005 hours INDICATIONS: Postmenopausal bleeding beginning one month ago Technique: Multiple axial sagittal and coronal images of the pelvis have been obtained with the Siemens high-resolution 1.5 Valorie MRI scanner. Images obtained include T2-weighted fat-suppressed sagittal sections, TR 3500, TE 46, T2 weighted coronal fat suppressed images, TR 3050, TE 84, T2-weighted transverse fat suppressed images, TR 3260, TE 63, proton density transverse images, TR 4720 TE 46, and T1 weighted coronal images, TR 560, TE 13. Findings: There is extensive metastatic susceptibility artifact which appears to be secondary to left hip arthroplasty Uterus measures 9.5 x 3.6 x 3.5 cm Endometrium measures 13 mm fluid-filled I do not have postcontrast images for assessment Urinary bladder intact but degraded by the magnetic susceptibility artifact No free fluid in the pelvis No adnexal mass IMPRESSION: Endometrium measures 13 mm, fluid-filled, no endometrial mass is noted
[2024-10-24 05:51] LABS: Basophils # (Auto) 0.0 Thou/mm3 (0.0-0.2); Basophils % (Auto) 0 % (0-2.5); Eosinophils # (Auto) 0.3 Thou/mm3 (0.0-0.5); Eosinophils % (Auto) 3 % (0-10); Hematocrit 31.3 % (36.0-46.0); Hemoglobin 10.5 g/dL (12.0-16.0); Immature Granulocytes Auto 0.03 Thou/mm3 (0.00-0.00); Lymphocytes # (Auto) 1.7 Thou/mm3 (1.0-4.8); Lymphocytes % (Auto) 17 % (10-50); Mean Corpuscular HGB Conc 33.5 g/dl (31.0-37.0); Mean Corpuscular Hemoglobin 32.4 pg (25.0-35.0); Mean Corpuscular Volume 97 fL (80-100); Monocytes # (Auto) 0.6 Thou/mm3 (0.0-0.8); Monocytes % (Auto) 6 % (0-12); Neutrophils # (Auto) 7.6 Thou/mm3 (1.8-7.7); Neutrophils % (Auto) 74 % (37-80); Nucleated Red Blood Cell # 0.00 Thou/mm3 (0.00-0.00); Nucleated Red Blood Cell % 0 /100 WBC (0); Platelet Count 281 Thou/mm3 (140-440); RDW Standard Deviation 70.7 fL (36.4-46.3); Red Blood Count 3.24 Miln/mm3 (4.00-5.20); White Blood Count 10.3 Thou/mm3 (3.6-11.0)
[2024-10-24 06:14] LABS: Anion Gap 9 (7-16); BUN/Creatinine Ratio 18 Ratio (12-20); Blood Urea Nitrogen 21 mg/dL (9-23); Calcium 9.2 mg/dL (8.3-10.6); Carbon Dioxide 19.1 mMol/L (20.0-31.0); Chloride 111 mMol/L (98-107); Creatinine (Component) 1.2 mg/dL (0.6-1.3); Estimated Creatinine Clearance 29.8 mL/min (>60); Glucose 140 mg/dL (74-106); Magnesium 2.0 mg/dL (1.6-2.6); Osmolality,Calculated 282 (275-295); Phosphorous 3.3 mg/dL (2.4-5.1); Potassium 4.5 mMol/L (3.4-5.1); Sodium 139 mMol/L (136-145); eGFR 46 See Note
[2024-10-24] MEDS: cefTRIAXone/D5w 1gm IV premix 1 GM/50 ML BAG IV (08:46)
--- NOTE | 2024-10-24 10:42 | ESPR_ITS ---
<Statement entered by Sherley Gordon MD - 11/07/24 15:05> I reviewed above note and agree with findings and plans. I have also personally examined the patient with medicine team and went over assessment and plan with medical team including international controller and resident physician. <Statement entered by Kartik Ceballos MD - 10/25/24 08:34> Pt is seen at bedside, does not have nay complaints and is very anxious to go home. Pt requested if MRI can be done jenae she would like to be discharge home today. Labs are stable, Urine culture ESBL klebsiella oxytoca, multi drug resistant therefore will DC pt on augment renally dosed for 14 days. BC grew GPC 1/2 likely contamination. Once MRI is done will talk to OBGYN for further recommendations and plan pt's discharge. Patient was seen and examined by me personally. I have directly supervised and reviewed documentation by the team resident and agree with its findings. Plan of care was discussed with the attending, Dr. Evan Ceballos, PGY-2 Documentation for date of: 10/24/24 Subjective Subjective Interval history: 78-year-old female past medical history of metastatic colon cancer, s/p chemoradiation (CAPOX chemo), colectomy, colostomy since August 2024, CKD, type 2 diabetes, neuropathy, hypertension, hyperlipidemia, anemia chronic requiring transfusion. Presented to ED by her oncologist for low hemoglobin and intermittent UTI symptoms. Admitted for for transfusion and UTI management. Overnight, no acute events, patient was stable and saturating well on room air. The patient was seen and examined at bedside with her daughter present. She have no acute complaints, denies weakness, palpitation, lightheadedness, shortness of breath, urinary symptoms. Per gynecology consult since TVUS was undetermined and unable to measure the endometrial stripe MRI was recommended. Pending MRI,patient H&H is stable, possible discharge tomorrow. Exam Vital Signs Temp Pulse Resp BP Pulse Ox O2 Del Method 97.0 F 74 18 155/81 H 100 Room Air 10/24/24 08:00 10/24/24 08:00 10/24/24 08:00 10/24/24 08:00 10/24/24 08:00 10/24/24 08:00 Narrative Exam General: Elderly, frail, conversant, no acute distress HEENT: NC/AT, EOMI, anicteric sclera, MMM Neck: Supple, no masses Lungs: Clear bilaterally, no respiratory distress CV: RRR, no murmurs Abd: Soft, non-tender, non-distended; LLQ colostomy with soft stools, no visible blood MSK: No joint swelling or erythema, no edema Skin: No rash, ulcers, lesions Neuro: A&O ?3, no focal deficits Psych: Cooperative, appropriate mood/affect Objective Labs 10/24/24 05:00 10/24/24 05:00 Labs: Laboratory Results - last 24 hr 10/23/24 10/24/24 04:58 05:00 WBC 10.3 RBC 3.24 L Hgb 10.5 L Hct 31.3 L MCV 97 MCH 32.4 MCHC 33.5 RDW Std Deviation 70.7 H Plt Count 281 Neut % (Auto) 74 Lymph % (Auto) 17 [place] % (Auto) 6 Eos % (Auto) 3 Baso % (Auto) 0 Neut # (Auto) 7.6 Lymph # (Auto) 1.7 [place] # (Auto) 0.6 Eos # (Auto) 0.3 Baso # (Auto) 0.0 Immature Gran # (Auto) 0.03 H Absolute Nucleated RBC 0.00 Immature Gran % 0 Nucleated RBC % 0 Smear Path Review Sent to Pathologist Sodium 139 Potassium 4.5 Chloride 111 H Carbon Dioxide 19.1 L Anion Gap 9 BUN 21 Creatinine 1.2 Estim Creat Clear Calc 29.8 L eGFR 46 L BUN/Creatinine Ratio 18 Glucose 140 H Calculated Osmolality 282 Calcium 9.2 Phosphorus 3.3 Magnesium 2.0 Iron 31 L TIBC 192 L Iron Saturation 16 L Unsat Iron Binding 161 L Quality Measures Quality Measures VTE prophylaxis Advance care planning discussed with:: patient and child Assessment & Plan Assessment Current Active Medications: Generic Name Dose Route Start Last Admin Trade Name Freq PRN Reason Stop Dose Admin Acetaminophen 650 mg 10/22/24 03:59 10/22/24 20:20 Acetaminophen 325 Mg Tablet PO 11/21/24 03:58 650 mg Q6H PRN Administration Fever >100.4 Acetaminophen 650 mg 10/22/24 03:59 Acetaminophen 325 Mg Tablet PO 11/21/24 03:58 Q6H PRN PAIN SCALE 1-3 (mild Hydrocodone Bitart/Acetaminophen 1 tab 10/22/24 03:59 Hydrocodone/Apap 5/325 Tablet PO 10/27/24 03:58 Q4HR PRN Pain Scale 4-10 Dextrose 25 ml 10/22/24 04:15 Dextrose 50%-Water Inj 50 Ml Syringe IV 11/21/24 04:14 Q15MIN PRN BG 50-70 responsive npo pt Dextrose 50 ml 10/22/24 04:15 Dextrose 50%-Water Inj 50 Ml Syringe IV 11/21/24 04:14 Q15MIN PRN BG <50 OR BG <70 & pt unresponsive Glucagon 1 mg 10/22/24 04:15 Glucagon Inj 1 Mg Vial IM Q15MIN PRN BG <70, and no IV access Ceftriaxone Sodium/Dextrose 1 gm in 50 mls @ 100 mls/hr 10/22/24 13:56 10/24/24 08:46 Rocephin/D5w 1gm Iv Premix IV 10/29/24 13:55 100 mls/hr QDAY MARION Administration Insulin Human Lispro 0 unit 10/22/24 07:30 10/24/24 07:41 Insulin Lispro (Admelog) 1 Unit/0.01 Ml Unit SC 11/21/24 07:29 Not Given AC MARION Protocol Ondansetron HCl 4 mg 10/22/24 03:59 Ondansetron Inj 2 Mg/Ml Inj 2 Ml IVP 11/21/24 03:58 Q6H PRN NAUSEA OR VOMITING Protocol Plan 78-year-old female past medical history of metastatic colon cancer, s/p chemoradiation (CAPOX chemo), colectomy, colostomy since August 2024, CKD, type 2 diabetes, neuropathy, hypertension, hyperlipidemia, anemia chronic requiring transfusion. Presented to ED by her oncologist for low hemoglobin and intermittent UTI symptoms. Admitted for for transfusion and UTI management. #Post-menopausal bleeding 2/2 #Metastatic colon cancer #High suspicion for endometrial malignancy Patient has history of metastatic colon cancer on chemo medication capecitabine. She has postmenopausal female endorsing intermittent vagina bleeding. Given the clinical history of metastatic colon cancer and clinical presentation of low Hb, there is high suspicion for endometrial malignancy. Transvaginal ultrasound done on 10/24 -uterus 8.1cm-Limited study. Plan - Transvaginal ultrasound- indeterminate - Gynecology consulted-recommend MRI - Follow-up outpatient with deaf interpreter oncology -Advised patient family Lych syndrome with screening - Transvaginal ultrasound #Acute on chronic anemia #Multifactorial likely 2/2 to malignancy, chemoradiation, nutritional loss, CKD # Microcytic anemia Patient has a history of metastatic colon cancer on chemotheray, which usually causes pancytopenia. Patient also colostomy and chronic kidney disease mild contribute to low hemoglobin. labs downtrending Hg 2.06 to 1.94, Hct 21.7 to 1.9, MCV 105-> 103. Hx of chronic anemia requiring transfusion in the past. Patient on home medication is ferrous sulfate by contributing also continue. Posttransfusion H&H improved significantly to Hb 10.7 and Hct 30.8. Plan - 3 units pRBC transfusion - Continue to monitor Hb levels - Transfuse irradiated PRBCs if Hgb <7 or symptomatic Hb<7 transfuse - Monitor colostomy bag for hematochezia - IV iron infusion outpatient - Vit B12 #SIRS likely 2/2 UTI # Complicated ESBL UTI Patient with 2 out of 4 criteria for SIRS: WBC of 15.9, RR of 21. UA is positive for pyuria, bacteriuria an leukocytes esterase. Urine culture was positive for Klebsiella, ESBL-cephalexin, cefotaxime, ceftazidime, ceftriaxone Blood culture grew GPC 1/2 bottle gram-positive cocci, likely contamination but patient will be discharge on antibiotics management Plan - Started on ceftriaxone (10/22/24- 10/24/24) - Zosyn x1 given on 10/22/24 -Urine culture- completed # Chronic stasis kidney disease, stage IIIa #Postchemotherapy THOMAS Patient has no history of elevated creatinine for the last 3months ranging between 1.4 and 1.7 (baseline likely 1.6). Patient GFR for last 3 months is between 30 and 38. Concern for possible stage III, moderately decreased kidney function. Due to patient history of metastatic colon cancer and the use Capecitabine contributes to kidney damage likely due to postchemotherapy THOMAS. Plan - Monitor BMP -Avoid nephrotoxins -Renal dose medications #Insulin-dependent diabetes mellitus type 2 #Diabetic neuropathy Patient has a history of type 2 diabetes mellitus, however she managed with Basaglar insulin at home well-controlled per patient. Blood glucose of to glucose of 128. Plan -On insulin sliding scale -Pending med rec -Monitor glucose AC/HS #Primary hypertension On carvedilol and lisinopril per patient; BP stable Plan - Continue carvedilol once med rec's are back - Hold lisinopril until infection resolves and renal function stable Health Maintenance: Disposition: Admit to telemetry Diet: Regular diet, Thromboprophylaxis: SCD GI prophylaxis: PPI Code Status: DNI, yes to compressions Patient seen and assessed under supervision of attending physician Dr. Gordon and discuss with senior resident Dr. Ceballos PGY-2 Jessica Dumas MD PGY-1, Internal Medicine
--- NOTE | 2024-10-24 11:28 | ESPR_ITS ---
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 - PN: Obj Data Labs 10/24/24 05:00 10/24/24 05:00 Labs: Laboratory Results - last 24 hr 10/23/24 10/24/24 04:58 05:00 WBC 10.3 RBC 3.24 L Hgb 10.5 L Hct 31.3 L MCV 97 MCH 32.4 MCHC 33.5 RDW Std Deviation 70.7 H Plt Count 281 Neut % (Auto) 74 Lymph % (Auto) 17 [place] % (Auto) 6 Eos % (Auto) 3 Baso % (Auto) 0 Neut # (Auto) 7.6 Lymph # (Auto) 1.7 [place] # (Auto) 0.6 Eos # (Auto) 0.3 Baso # (Auto) 0.0 Immature Gran # (Auto) 0.03 H Absolute Nucleated RBC 0.00 Immature Gran % 0 Nucleated RBC % 0 Smear Path Review Sent to Pathologist Sodium 139 Potassium 4.5 Chloride 111 H Carbon Dioxide 19.1 L Anion Gap 9 BUN 21 Creatinine 1.2 Estim Creat Clear Calc 29.8 L eGFR 46 L BUN/Creatinine Ratio 18 Glucose 140 H Calculated Osmolality 282 Calcium 9.2 Phosphorus 3.3 Magnesium 2.0 Iron 31 L TIBC 192 L Iron Saturation 16 L Unsat Iron Binding 161 L VITICULTURE TEACHER - A/P Assessment and plan (1) Thickened endometrium: Status: Acute Assessment and plan: I was called by IM care team requesting recommendations for follow-up after pelvic MRI was done to elucidate endometrial thickness. Patient has intermittent post-menopausal bleeding and could not tolerate full probe for pelvic ultrasound, so MRI was done. She has complicated PMhx including metastatic colon cancer s/p chemoradiation and colectomy, has been admitted for concern for urosepsis. I have not yet been able to see patient on rounds this morning secondary to busy L&D board with deliveries, I am told patient and family strongly desire discharge at this time. Examination: MRI pelvis, without contrast Technique: Multiple axial sagittal and coronal images of the pelvis have been obtained with the Siemens high-resolution 1.5 Valorie MRI scanner. Images obtained include T2-weighted fat-suppressed sagittal sections, TR 3500, TE 46, T2 weighted coronal fat suppressed images, TR 3050, TE 84, T2-weighted transverse fat suppressed images, TR 3260, TE 63, proton density transverse images, TR 4720 TE 46, and T1 weighted coronal images, TR 560, TE 13. Findings: There is extensive metastatic susceptibility artifact which appears to be secondary to left hip arthroplasty Uterus measures 9.5 x 3.6 x 3.5 cm Endometrium measures 13 mm fluid-filled I do not have postcontrast images for assessment Urinary bladder intact but degraded by the magnetic susceptibility artifact No free fluid in the pelvis No adnexal mass IMPRESSION: Endometrium measures 13 mm, fluid-filled, no endometrial mass is noted VITICULTURE TEACHER recommendations: I discussed with care team that endometrial stripe 13mm needs further workup. This would either be in-office endometrial biopsy if patient able to tolerate vs hysteroscopy with dilation and curettage if patient unable to tolerate office tissue sampling. She can follow up with this in the [facility] to go over these options in further detail Aarti Sheehan MD (2) Postmenopausal bleeding: Status: Acute (3) Community acquired pneumonia: Status: Acute (4) Colon cancer: Status: Acute Time Spent With Patient Time: Total time spent is greater than 50% in coordination of care (as documented) at patient's floor/unit and/or counseling patient: Time with patient: less than 15 minutes
[2024-10-24] MEDS: INSULIN LISPRO (AdmeLOG) 1 UNIT/0.01 ML UNIT SC (12:11)
--- NOTE | 2024-10-24 16:20 | PC.NURSE ---
Dr. Luo covering for Dr. Ceballos aware pt. repeat BP after meds was 157/70. Dr. Luo orders to continue with DC and instruct pt. to take PO Nifedipine as ordered HS.
--- NOTE | 2024-10-24 16:48 | ESDS_ITS ---
<Statement entered by Sherley Gordon MD - 11/07/24 15:07> I reviewed above note and agree with findings and plans. I have also personally examined the patient with medicine team and went over assessment and plan with medical team including technology development intern and resident physician. Planned Discharge Date 10/24/24 DS: Providers Provider Date of admission: 10/22/24 03:54 [facility] Admitting Provider: Christopher Mathews MD Attending Provider on Admission: Carlos Rubin MD Consults: 10/23/24 10:13 Consult to Gynecology Routine Comment: Postmenopausal Bleeding Consulting Provider: Carlos Rubin Attending Provider on DC: Dr. Sherley Gordon MD Discharging Provider: Dr. Sherley Gordon MD Anticipated date of discharge: 10/24/24 DS: Diagnosis Problem List Completed Was Problem List Reviewed/Reconciled?: Yes Hospital Course Hospital Course Hospital course: Summary 78-year-old female past medical history of metastatic colon cancer, s/p chemoradiation (CAPOX chemo), colectomy, colostomy since August 2024, CKD, type 2 diabetes, neuropathy, hypertension, hyperlipidemia, anemia chronic requiring transfusion. Presented to [facility] on 10/21/24 by her oncologist for low hemoglobin and intermittent UTI symptoms. [facility] patient was found to have low hemoglobin, 1 unit of PRBC was ordered. Post- transfusion H&H were still low, received another 1 unit of blood transfusion. Patient had no acute symptoms of bleeding, vitals were stable and no symptoms of hematemesis, melena nor hematochezia. However, patient endorsed intermittent vaginal bleeding. Due to the patient history metastatic colon cancer and postmenopausal bleeding there was concern for possible endometrial malignancy. Consulted OB recommended transvaginal ultrasound for further assessment, however the result was indeterminant and could not measure the endometrial stripe. Per OB recommendation MRI was done and showed endometrium measurement of 13 mm. Patient and her family was alerted about the findings and advised to follow-up outpatient with OBGYN Dr. Rubin for possible biopsy to rule out endometrial cancer. Additionally urine cultures grew ESBL klebsiella oxytoca, Pt was started on IV antibiotics, cultures were multi drug resistant therefore will discharge pt on augmentin renally dosed for 14 days. On admission, pt also had THOMAS will improved over the course of hospitalizations. Patient also advised to get IV iron infusion outpatient due to history of chronic anemia. Pt is hemodynamically stable, Hgb is stable, remains afebrile and is eager to go home. Pt is discharge home to self-care, daughters at bedside given clear instructions on care. Discharge recommendation: -Follow up with primary care provider within 1 week of discharge, if you do not have a primary care physician you can come see us at the [facility] by calling [phone] -Please follow up with your oncologist as per your schedule -Please follow up with OBGYN Dr. Rubin outpatient, you can call his office at and make an appointment -You have been prescribed antibiotics for 14 days, please complete the course -Continue rest of medications as previously prescribed (due to your kidney function we held your home lisinopril, please see your primary care before resuming it) -Return to the ED or call EMS if symptoms return and/or worsen Hospital Diagnoses: #Post-menopausal bleeding 2/2 #Metastatic colon cancer #High suspicion for endometrial malignancy #Acute on chronic anemia #Multifactorial likely 2/2 to malignancy, chemoradiation, nutritional loss, CKD # Microcytic anemia # SIRS likely 2/2 UTI # Complicated ESBL UTI #Chronic stasis kidney disease, stage IIIa #Postchemotherapy THOMAS #Insulin-dependent diabetes mellitus type 2 #Diabetic neuropathy #Primary hypertension Patient seen and assessed under supervision of attending physician Dr. Gordon and discuss with senior resident Dr. Ceballos PGY-2 Jessica Dumas MD PGY-1, Internal Medicine Time Spent with Patient Time attestation: Total time spent providing and/or coordinating discharge services: Time spent: Greater than 30 minutes Exam Vital Signs Temp Pulse Resp BP Pulse Ox O2 Del Method 96.6 F L 62 24 H 157/70 H 99 Room Air 10/24/24 16:30 10/24/24 16:30 10/24/24 16:30 10/24/24 16:30 10/24/24 16:30 10/24/24 16:30 Narrative Exam General: Elderly, frail, conversant, no acute distress HEENT: NC/AT, EOMI, anicteric sclera, MMM Neck: Supple, no masses Lungs: Clear bilaterally, no respiratory distress CV: RRR, no murmurs Abd: Soft, non-tender, non-distended; LLQ colostomy with soft stools, no visible blood MSK: No joint swelling or erythema, no edema Skin: No rash, ulcers, lesions Neuro: A&O ?3, no focal deficits Psych: Cooperative, appropriate mood/affect Discharge Plan Plan Patient Disposition: HOME (Self Care) Patient condition on transfer: Stable Care Plan Goals: -Follow up with primary care provider within 1 week of discharge, if you do not have a primary care physician you can come see us at the [facility] by calling [phone] -Please follow up with your oncologist as per your schedule -Please follow up with OBGYN Dr. Rubin outpatient, you can call his office at and make an appointment -You have been prescribed antibiotics for 14 days please complete the course -Continue rest of medications as previously prescribed (due to your kidney function we held your home lisinopril, please see your primary care before resuming it) -Return to the ED or call EMS if symptoms return and/or worsen - Realice maricruz becki de seguimiento con singh m?dico de cabecera dentro de la semana posterior al maya. Si no cuenta con un m?dico de cabecera, puede visitarnos en la [facility] llamando al [phone]. - Por favor, consulte con singh onc?logo seg?n singh horario. - Por favor, consulte con el ginec?logo obstetra Dr. Rubin, especialista en consulta externa. Puede llamar a singh consultorio al y programar maricruz becki. - Si le garcias recetado antibi?ticos veronica 14 d?as, complete el tratamiento. - Contin?e con el casimiro de los medicamentos seg?n lo prescrito previamente (debido a singh funci?n renal, suspendimos singh lisinopril en casa; consulte con singh m?dico de cabecera antes de reanudarlo). - Regrese a urgencias o llame a EMS si los s?ntomas regresan o empeoran. Prescriptions/Referrals Prescriptions/Med Rec: New amoxicillin-pot clavulanate [Augmentin] 500-125 mg tablet 1 tab PO BID 14 Days Qty: 28 0RF Continued nifedipine 30 mg tablet extended release 30 mg PO HS carvedilol 3.125 mg tablet 3.125 mg PO BID gabapentin 300 mg capsule 300 mg PO DAILY capecitabine 500 mg tablet 1,000 mg PO BID Changed ferrous sulfate [FeroSul] 325 mg (65 mg iron) tablet 325 mg PO Q OTHER DAY Qty: 30 0RF Held lisinopril 40 mg tablet 40 mg PO DAILY Hold Instructions: Resume on 11/05/24. please follow up with your primary care physician before resuming this medication Referrals: Levar(Yoly),BASSEM Garcia [Primary Care Provider] - Carlos Rubin MD [Physician] - Patient/Caregiver Discharge Instructions Education Materials: Anemia, What Is Pneumonia?, When You Have Pneumonia, Handwashing Tips for Patients ..., Hand Litigation Paralegal Steps Print Language: Nigerien Stand Alone Forms: Lily Award Info., Patient Portal Info Letter Discharge Order Discharge Orders: Discharge (Routine); Ordered 10/24/24 Ordered By: Kartik Ceballos Quality Discharge Quality Measures VTE prophylaxis
== END 2024-10-24 16:30 | disposition home or self-care (01) | DRG 463 ==
LOC: SERX 10-22 03:46 → SERHOLD 10-22 04:36 → S2NX 10-22 05:35
PROVIDERS: Admitting Provider Internal Medicine; PCP Physician Assistant; Visit Provider Obstetrics & Gynecology
DX: N39.0 Urinary tract infection, site not specified (principal); C18.9 Malignant neoplasm of colon, unspecified; Z92.3 Personal history of irradiation; Z93.3 Colostomy status; E78.5 Hyperlipidemia, unspecified; I12.9 Hypertensive chronic kidney disease with stage 1 through stage 4 chronic kidney disease, or unspecified chronic kidney disease; N18.30 Chronic kidney disease, stage 3 unspecified; E11.22 Type 2 diabetes mellitus with diabetic chronic kidney disease; D84.821 Immunodeficiency due to drugs; T45.1X5A Adverse effect of antineoplastic and immunosuppressive drugs, initial encounter; D63.1 Anemia in chronic kidney disease; C79.9 Secondary malignant neoplasm of unspecified site; E11.40 Type 2 diabetes mellitus with diabetic neuropathy, unspecified; N17.9 Acute kidney failure, unspecified; N95.0 Postmenopausal bleeding; E87.20 Acidosis, unspecified; Z16.12 Extended spectrum beta lactamase (ESBL) resistance; J15.0 Pneumonia due to Klebsiella pneumoniae; Z16.24 Resistance to multiple antibiotics; Z79.4 Long term (current) use of insulin; Z79.899 Other long term (current) drug therapy; Z90.49 Acquired absence of other specified parts of digestive tract
CPT/HCPCS: 36415; 71045; 72195; 76830; 80048; 80053; 80307; 81001; 82607; 82746; 83036; 83540; 83550; 83605; 83615; 83690; 83735; 83880; 84100; 84145; 84484; 85014; 85018; 85025; 85610; 85730; 86850; 86900; 86901; 86923; 87040; 87077; 87086; 87186; 87811; 93005; 96361; 96365; 96375; 99284; J0696; J1644; J1815; J2470; J2543; J3373; J7120; P9040; A9270

== ENCOUNTER 2024-11-07 08:27 | Outpatient (RCR) | payer MEDICAID, SELFPAY ==
--- NOTE | 2024-11-02 23:59 | CTCFLWUP_ITS ---
Patient: NIRAV CAGLE : 1945 Page 2 of 3 FOLLOW UP NOTE DATE OF SERVICE: 10/28/2024 NAME: NIRAV CAGLE ACCOUNT: [id number] : 1945 AGE: 78 INTERVAL HISTORY: Subjective: Chief Complaint Follow-up for colon cancer treatment, increasing tumor markers History of Present Illness Nirav Connolly, a patient with colon cancer, presents for follow-up of her ongoing treatment. Her cancer markers have shown an increase, with her Lesa test result rising from 3.05 in April to 7.87 currently, and her CEA now at 12.6. The patient has been taking Xeloda (capecitabine) for her colon cancer treatment, but it appears to be ineffective. She is currently on a low dose regimen of 2 tablets in the morning and 1 in the afternoon, which is significantly lower than the recommended dose based on her weight of 131 lbs and body surface area of 1.57. The patient reports experiencing a sensation like sand in her hands, which may be indicative of neuropathy as a side effect of her current treatment. The patient's daughter expresses concerns about starting intravenous chemotherapy, as the patient is scared of this treatment modality. It is noted that the patient has not received aggressive treatment for her colon cancer thus far, which has impacted her eligibility for surgery. Medications and Supplements - Xeloda (capecitabine) 500 mg tablets - Current dose: 2 tablets in the morning, 1 tablet in the afternoon - Taken 2 weeks on, 1 week off - Not working effectively for cancer treatment - Lesa testing - Recent result: 7.87 (increased from 3.05 in April) Review of Systems Neurological: Positive for neuropathy (feeling like sand in hands). Objective: Vital Signs - Weight: 131 lbs Laboratory, Imaging, and Diagnostic Test Results - Date: SunAug 26 2024 - Lesa test: 7.87 (positive) - CEA: 12.6 - Previous results: - Lesa test: 3.05 (April 2024) Medications and Supplements - Capecitabine - For colon cancer treatment Review of Systems Gastrointestinal: Negative for constipation. Medical History - Colon cancer - Chronic kidney disease Medications and Supplements - Capecitabine - For colon cancer treatment Review of Systems Gastrointestinal: Negative for constipation. ONCOLOGY HISTORY: DIAGNOSIS: Malignant neoplasm of rectum [ICD10] C20 DATE OF DIAGNOSIS: 2022 STAGE/TNM: Stage IV TREATMENT HISTORY: Care?Plan Start?Date Cycle Day Intent Folfiri?cetuxmab 06/11/2024 1 14 Palliative Yfrbcb-eKYWSUD-4?-?5FU?400?+?2400?CIV,?LVR?400,?OXALIplat?85 10/28/2024 1 14 Palliative HISTORY OF PRESENT ILLNESS: Patient had pain and bleeding for about 7 months with 15 to 20 pound weight loss. Patient had a colonoscopy on June 28, 2022. There was a rectal mass extending to the anus. Biopsy showed invasive adenocarcinoma moderately differentiated no loss of MMR. Patient completed preoperative chemoradiation with capecitabine 1000 mg twice daily on days of radiation. Patient tolerated the treatment well Patient had an episode of severe anemia requiring transfusion rectal bleeding has improved with this chemoradiation. Ms. Cagle has been seen by surgery and had follow-up sigmoidoscopy and biopsy. Patient was told there was no cancer found by multiple biopsies. Patient had been referred to [facility] by surgery. The referral was not approved by insurance. Patient decided to continue treatment locally. Patient received her first course of CapeOx chemotherapy with adjusted dose of advanced age on December 06, 2022. Patient tolerated the treatment very well. Ms. Cagle completed CapeOx chemotherapy in May 2023. Ms. Cagle underwent low anterior resection on August 23, 2023. Recent CT scan of chest abdomen and pelvis on December 07, 2023 showed pulmonary metastasis. Family and patient requested CT-guided biopsy of the lung nodules. OTHER MEDICAL HISTORY/CONDITIONS: DIABETES TYPE 2 HYPERTENSION RECTAL CANCER (2022) NEUROPATHY HYPERLIPIDEMIA ANEMIA REQUIRING BLOOD TRANSFUSIONS CHRONIC KIDNEY DISEASE COLON SURGERY/ COLECTOMY IN [place] (AUGUST 2023) CHOLECYSTECTOMY (2019) FAMILY HISTORY: Father:?DENIES?,?FATHER?WAS?DIABETIC Mother:?DENIES Sibling:?DENIES Children:?DENIES Cancer?History:?RECTAL?CANCER Patient?denies?family?cancer?history. 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 Education?Level:?Completed something less than 8th grade Marital?Status:? 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 amoxicillin-pot clavulanate - 500-125 mg 1 tab Twice a Day 2. Basaglar KwikPen - As directed 3. capecitabine - 500 mg 1,250 meq/m*2 1963 meq 3 tabs twice daily for 14 days 4. carvedilol - 3.125 mg 2 tab Daily 5. ferrous sulfate - 325 mg (65 mg iron) 1 tab Daily 6. gabapentin - 300 mg Twice a Day 7. lisinopril - 40 mg Daily 8. NIFEdipine ER - 30 mg 1 tab Every day before sleep ALLERGIES: No Known Allergies REVIEW OF SYSTEMS: A complete 14-point review of systems was performed and is negative except as noted in interval history. PHYSICAL EXAMINATION: VITAL SIGNS: Temperature?98.8, B/P?127/66, Oxygen?Saturation?99% PAIN: 0 - No pain GENERAL APPEARANCE: Appears well, in no apparent distress, appropriately interactive. HEENT: Normocephalic, no temporal wasting, normal conjunctiva, no scleral icterus, normal hearing, lips without lesions, neck normal range of motion. CARDIOVASCULAR: Not assessed. PULMONARY: Normal respiratory effort, no respiratory distress or use of accessory muscles, speaking in full sentences, no tachypnea. EXTREMITIES: No pedal edema or cyanosis. SKIN: Normal skin appearance. NEUROLOGIC: Alert and oriented x4. PSHYCHIATRIC: Appropriate affect, mood normal, behavior normal, intact thought and speech. LABORATORY DATA: I have personally reviewed and interpreted each of the patient?s relevant lab tests, abnormal findings are below: Date 10/23/24 10/24/24 ??WHITE?BLOOD?COUNT?(Thou/mm3) ? 10.3 ??RED?BLOOD?COUNT?(Miln/mm3) ? 3.24?L ??HEMOGLOBIN?(gm/dl) ? 10.5?L ??HEMATOCRIT?(%) ? 31.3?L ??PLATELET?COUNT?(Thou/mm3) ? 281 ??NEUTROPHILS?%,?AUTO?(%) ? 74 ??LYMPH?%,?AUTO?(%) ? 17 ??NEUTROPHILS,?AUTO?(Thou/mm3) ? 7.6 ??GLUCOSE,RANDOM?(mg/dL) ? 140?H ??BLOOD?UREA?NITROGEN?(mg/dL) ? 21 ??CREATININE?(mg/dL) ? 1.20 ??SODIUM?(mmol/L) ? 139 ??POTASSIUM?(mmol/L) ? 4.5 ??CHLORIDE?(mmol/L) ? 111?H ??CrCl?(CandG)?(ml/min) ? 35.66 ??CALCIUM,?SERUM?(mg/dL) ? 9.2 ??MAGNESIUM?(mg/dL) 2.0 2.0 ASSESSMENT/PLAN: Rectal cancer Diagnosed in 2022 S/p chemo RT and lower perineal resection Patient have colectomy bag Patient has been on capecitabine Nirav Connolly, female patient with colon cancer, presenting for follow-up of lab results and ongoing management. Patient's Lesa test, which detects cancer in the blood, has increased from 3.05 in April to 7.87 currently. CEA is now 12.6. The patient has been on Xeloda (capecitabine) at a suboptimal dose (3 tablets daily instead of the weight-based recommendation of 8 tablets daily). Current treatment is deemed ineffective as evidenced by rising tumor markers. Patient have port Will start her on folfox Counselled Schedule patient to start chemotherapy with folfox Anemia Stable Plan: - Continue current anemia management - Monitor hemoglobin levels with future blood work ORDERS: Order # Description [id number] Infusion 5 Hours [id number] Comprehensive Metabolic Panel - 12 + CBC with Auto Diff + CEA [id number] CT Scan + Abdomen and Pelvis + Chest + With W/O Contrast [id number] MD Follow Up 4 Week [id number] Discontinue CIV Pump [id number] Infusion 5 Hours [id number] Discontinue CIV Pump [id number] Infusion 5 Hours [id number] Discontinue CIV Pump [id number] Infusion 5 Hours 1230700 Discontinue CIV Pump [id number] Infusion 5 Hours 1557221 Discontinue CIV Pump [id number] Infusion 5 Hours [id number] Discontinue CIV Pump [id number] Infusion 5 Hours 4841939 Discontinue CIV Pump [id number] Infusion 5 Hours [id number] Discontinue CIV Pump RETURN TO CLINIC: I reviewed the diagnosis, prognosis, and recommended treatment/procedure options with the patient (and/or their legal employment program representative), including the potential benefits, risks, side effects and alternative therapies. We also discussed the option of no treatment and the possibility of clinical trial participation, if applicable. All questions were addressed, and they demonstrated understanding. They provided informed consent to proceed with the proposed plan of care. BILLING AND COMPLIANCE: I reviewed external records from providers outside my specialty as summarized above. I spent a total of 50 minutes on this patient?s care on the day of their visit excluding time spent related to any billed procedures. This time includes time spent with the patient as well as time spent documenting in the medical record, reviewing patients records and tests, obtaining history, placing orders, communicating with other healthcare professionals, counseling the patient, family or caregiver, and/or care coordination for the diagnoses above. Electronically Signed by: Jorge Lisa MD T: 11:57 PM CC: Radha?Levar?(liliana,? PCP: Referring: Jorge Lisa This document was completed utilizing speech recognition software. Grammatical errors, random word insertions, pronoun errors, and incomplete sentences are an occasional consequence of this system due to software limitations, ambient noise, and hardware issues. Any formal questions or concerns about the content, text or information contained within the body of this dictation should be directly addressed to the provider for clarification.
== END 2024-11-09 23:59 | disposition home or self-care (01) ==
LOC: SCTC 08:27
PROVIDERS: PCP Physician Assistant; Referring Provider Internal Medicine Hematology & Oncology; Visit Provider Internal Medicine Hematology & Oncology
DX: C20 Malignant neoplasm of rectum (principal); R97.0 Elevated carcinoembryonic antigen [CEA]; Z90.49 Acquired absence of other specified parts of digestive tract; Z93.3 Colostomy status; D64.9 Anemia, unspecified
CPT/HCPCS: 99213; G0463

== ENCOUNTER 2024-11-18 08:11 | Outpatient (CLI) | payer MEDICAID, SELFPAY ==
[2024-11-14 15:48] VITALS: BMI 22.8
[2024-11-17 12:17] LABS: Basophils # (Auto) 0.0 Thou/mm3 (0.0-0.2); Basophils % (Auto) 0 % (0-2.5); Eosinophils # (Auto) 0.3 Thou/mm3 (0.0-0.5); Eosinophils % (Auto) 3 % (0-10); Hematocrit 29.0 % (36.0-46.0); Hemoglobin 9.7 g/dL (12.0-16.0); Immature Granulocytes Auto 0.02 Thou/mm3 (0.00-0.00); Lymphocytes # (Auto) 2.0 Thou/mm3 (1.0-4.8); Lymphocytes % (Auto) 19 % (10-50); Mean Corpuscular HGB Conc 33.4 g/dl (31.0-37.0); Mean Corpuscular Hemoglobin 33.8 pg (25.0-35.0); Mean Corpuscular Volume 101 fL (80-100); Monocytes # (Auto) 0.5 Thou/mm3 (0.0-0.8); Monocytes % (Auto) 5 % (0-12); Neutrophils # (Auto) 7.9 Thou/mm3 (1.8-7.7); Neutrophils % (Auto) 73 % (37-80); Nucleated Red Blood Cell # 0.00 Thou/mm3 (0.00-0.00); Nucleated Red Blood Cell % 0 /100 WBC (0); Platelet Count 209 Thou/mm3 (140-440); RDW Standard Deviation 70.4 fL (36.4-46.3); Red Blood Count 2.87 Miln/mm3 (4.00-5.20); White Blood Count 10.8 Thou/mm3 (3.6-11.0)
[2024-11-17 12:24] LABS: INR 1.1 (0.9-1.3); Partial Thromboplastin Time 23.3 Seconds (22.0-36.0); Prothrombin Time 11.9 Seconds (9.0-12.2)
[2024-11-18] VITALS (10 sets, daily range): BP systolic 123–136; BP diastolic 57–65; PULSE 61–78; RESP 10–20; TEMP 36.4–36.9; O2SAT 97–100
[2024-11-18] MEDS: DEXTROSE 5%-0.45% NS 1,000 ML 100 ML IV (08:40)
--- NOTE | 2024-11-18 09:00 | XR_ITS ---
Examination: IR venous implantation Port-A-Cath Ultrasound-guided needle placement right internal jugular vein. Fluoroscopy AP Chest, 2 views INDICATIONS: Rectosigmoid carcinoma, need for long-term intravenous antibiotic therapy Exam date and time: November 18, 2024 0817 hours. Informed consent provided Technique: A timeout was completed, verifying correct patient, procedure, site, positioning, and special equipment if applicable The patient was placed in a dependent position appropriate for central line placement based on the vein to be cannulated. The patient's right neck was prepped and draped in sterile fashion. Maximum Sterile Barrier Technique used including cap, mask, sterile gown, sterile gloves, and sterile full body drape. If ultrasound technique used: sterile gel and sterile probe covers. Hand Hygiene performed using proper scrub, soap and water, or alcohol-based hand rub. Ultrasound utilized to confirm patency of the right internal jugular vein, utilizing ultrasonographic guidance successful 21-gauge needle puncture into the right internal jugular vein Ultrasound images were recorded and stored. Successful micropuncture with a 21-gauge needle was performed. 0.18 wire guide was introduced into the IVC under fluoroscopic guidance. Subcutaneous pocket formed in the upper right chest with blunt dissection, 8 [place] 19 cm Port-A-Cath line then connected to Port-A-Cath reservoir and placed through a venous sheath into the superior vena cava in proper position The attending radiologist was present for the entire procedure Estimated blood loss3 cc. Findings: Under fluoroscopy, the tip of the Port-A-Cath is in good position in the vena cava. Portable chest x-ray, post Port-A-Cath placement, as ordered. Impression: Successful ultrasound-guided needle placement right internal blood or vein. Successful venous implantation, IR, Port-A-Cath . AP portable chest completion procedure demonstrates satisfactory position Port-A-Cath tip SVC. Chest AP 2 views, fluoroscopy 0.2 minute radiation dose 2.48 milligray May use Port-A-Cath
[2024-11-18] MEDS: ceFAZolin/D5W 1 GM IVPB 1 GM/50 ML BAG IV (09:28)
[2024-11-18] MEDS: fentaNYL CIT INJ 50 mCg/ML AMP 2ML 75 MCG IVP (09:51)
[2024-11-18] MEDS: HEPARIN SOD LOCK SYR 100 UNIT/ML 500 UNIT STFIELD (09:54)
[2024-11-18] MEDS: LIDOCAINE 1% W/EPI 1:100K 20 ML VIAL 5 ML INFL (09:54)
[2024-11-18] MEDS: LIDOCAINE INJ PF 1% 30 ML VIAL 5 ML INFL (09:54)
--- NOTE | 2024-11-18 10:40 | PC.NURSE ---
1020 patient is awake, alert, breathing unlabored, s/p port placement by dr bower, dressing to right chest dry with no bleeding or hematoma, report given to Isael JEAN
== END 2024-11-18 10:55 | disposition home or self-care (01) ==
PROVIDERS: Radiology Diagnostic Radiology; PCP Physician Assistant; Referring Provider Internal Medicine Hematology & Oncology; Visit Provider Internal Medicine Hematology & Oncology
DX: C20 Malignant neoplasm of rectum (principal); Z01.812 Encounter for preprocedural laboratory examination
CPT/HCPCS: 36561; 36415; 76937; 77001; 85025; 85610; 85730; C1769; C1788; C1894; J0689; J0690; J1642; J3010; J3490; J7042; J7050

== ENCOUNTER 2024-11-26 06:18 | Inpatient (IN) | payer MEDICAID, SELFPAY ==
[2024-11-26] VITALS (12 sets, daily range): BP systolic 100–141; BP diastolic 44–92; PULSE 65–91; RESP 16–96; TEMP 36.2–37.4; O2SAT 95–99; BMI 24.4; BMI 25.1
--- NOTE | 2024-11-26 06:24 | EKG_ITS ---
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
--- NOTE | 2024-11-26 06:32 | XR_ITS ---
Examination: AP lateral chest 2 views Technique: Sitting portable AP lateral chest 2 views Date and time: November 26, 2024 0658 hrs., Comparison October 22, 2024 Indications: Coughing weakness beginning 3 days ago. Diagnosis rectosigmoid carcinoma Findings: Bibasilar pneumonia, significant left base Normal heart size Right internal jugular Port-A-Cath tip satisfactory position Subtle nodular densities in both lungs, the largest in the left upper lobe 20 mm, please see the CT chest report July 10, 2024 Impression: Bibasilar pneumonia Consider repeat CT chest without contrast to assess for progression of pulmonary nodular metastatic disease compared to the July 10, 2024 exam
--- NOTE | 2024-11-26 06:32 | PD.EDRME ---
Rapid Medical Screening Exam [facility] Arrival date/time: 11/26/24 06:18 79-year-old female with medical history significant for colon cancer currently on oral chemo presents for complaint of generalized weakness ongoing x 3 days Chief Complaint: Weakness Vital signs: Vital Signs Temperature 99.4 F 11/26/24 06:30 Pulse Rate 91 11/26/24 06:30 Respiratory Rate 19 11/26/24 06:30 Blood Pressure 126/69 11/26/24 06:30 Pulse Oximetry (%) 97 11/26/24 06:30 Oxygen Delivery Method Room Air 11/26/24 06:30
[2024-11-26 07:37] LABS: Collection Type, Urine Clean Catch
[2024-11-26 07:38] LABS: Lactate (Lactic Acid) 1.0 mMol/L (0.4-2.0)
[2024-11-26 07:41] LABS: Basophils # (Auto) 0.1 Thou/mm3 (0.0-0.2); Basophils % (Auto) 0 % (0-2.5); Eosinophils # (Auto) 0.1 Thou/mm3 (0.0-0.5); Eosinophils % (Auto) 0 % (0-10); Hematocrit 25.3 % (36.0-46.0); Immature Granulocytes Auto 0.40 Thou/mm3 (0.00-0.00); Lymphocytes # (Auto) 2.2 Thou/mm3 (1.0-4.8); Lymphocytes % (Auto) 8 % (10-50); Mean Corpuscular HGB Conc 34.0 g/dl (31.0-37.0); Mean Corpuscular Hemoglobin 33.9 pg (25.0-35.0); Mean Corpuscular Volume 100 fL (80-100); Monocytes # (Auto) 0.9 Thou/mm3 (0.0-0.8); Monocytes % (Auto) 3 % (0-12); Neutrophils # (Auto) 23.9 Thou/mm3 (1.8-7.7); Neutrophils % (Auto) 87 % (37-80); Nucleated Red Blood Cell # 0.00 Thou/mm3 (0.00-0.00); Nucleated Red Blood Cell % 0 /100 WBC (0); Platelet Count 224 Thou/mm3 (140-440); RDW Standard Deviation 65.2 fL (36.4-46.3); Red Blood Count 2.54 Miln/mm3 (4.00-5.20); White Blood Count 27.6 Thou/mm3 (3.6-11.0)
[2024-11-26 07:51] LABS: Hemoglobin 8.6 g/dL (12.0-16.0)
[2024-11-26 08:05] LABS: Amorphous Crystals,Urine Present (Absent); Bacteria,Urine Rare; Bilirubin,Urine Negative (Negative); Blood,Urine 3+ (Negative); Color,Urine Drk-Yellow (Lt Yel-Yel); Glucose, Urine Negative (Negative); Ketones,Urine Negative (Negative); Leukocyte Esterase,Urine Positive (Negative); Nitrite,Urine Positive (Negative); PH,Urine 6.0 (5.0-7.0); Protein,Urine 1+ (Neg - Trace); RBC,Urine 68 /hpf (0-3); Specific Gravity,Urine 1.015 (1.001-1.035); Squamous Epithelial Cell,Urine 2 /hpf (0-5); Urobilinogen,Urine Negative mg/dL (0.0-1.0); WBC,Urine 91 /hpf (0-5)
[2024-11-26 08:10] LABS: Clarity,Urine Hazy (Clear/Hazy)
[2024-11-26 08:11] LABS: Alanine Aminotransferase < 7 U/L (10-49); Albumin, Serum 3.4 gm/dL (3.4-4.8); Albumin/Globulin Ratio 1.3 (1.2-2.2); Alkaline Phosphatase 101 U/L (46-116); Anion Gap 10 (7-16); Aspartate Amino Transferase 15 U/L (0-34); BUN/Creatinine Ratio 19 Ratio (12-20); Bilirubin,Total 0.7 mg/dL (0.3-1.2); Blood Urea Nitrogen 25 mg/dL (9-23); Calcium 8.5 mg/dL (8.3-10.6); Calcium (Corrected) 9.0 mg/dL (8.5-10.1); Chloride 107 mMol/L (98-107); Creatinine (Component) 1.3 mg/dL (0.6-1.3); Estimated Creatinine Clearance 27.2 mL/min (>60); Globulin 2.7 gm/dL (2.3-3.5); Glucose 126 mg/dL (74-106); Magnesium 1.7 mg/dL (1.6-2.6); Osmolality,Calculated 270 (275-295); Potassium 4.2 mMol/L (3.4-5.1); Procalcitonin 0.61 ng/ml (0.0-0.49); Sodium 132 mMol/L (136-145); Total Protein 6.1 gm/dL (5.7-8.2); Troponin I < 0.020 ng/mL (0.0-0.045); eGFR 42 See Note
[2024-11-26 08:13] LABS: Carbon Dioxide 14.6 mMol/L (20.0-31.0)
[2024-11-26] MEDS: cefTRIAXone/D5w 1gm IV premix 1 GM/50 ML BAG IV (09:34)
--- NOTE | 2024-11-26 10:05 | PD.EDWEAK ---
ED Weakness RME/HPI General Chief complaint: Weakness Stated complaint: WEAK X3 DAYS Arrival date/time: 11/26/24 06:18 RME / HPI RME / HPI Narrative: 11/26/24 06:18 79-year-old female with medical history significant for colon cancer currently on oral chemo presents for complaint of generalized weakness ongoing x [address] SEN MAIN ED EVALUATION 79 year old female with history of metastatic colon cancer (dx 2022) s/p chemoradiation, s/p colectomy with colostomy (08/2023), hypertension, diabetes, hyperlipidemia, prior anemia requiring transfusion presents to the ED for evaluation of global weakness beginning 4 days ago. Accompanied by bilateral knee pain with difficulty standing on her own also beginning 4 days ago, fevers, sweats. Patient states she has taken Tylenol for fevers and pain with temporary relief. Denies nausea, vomiting. Denies cough, shortness of breath, chest pain though daughter in the room reports patients breathing does appear different in the last several days. Related Data Home Medications ?Medication ?Instructions ?Recorded ?Confirmed capecitabine 500 mg tablet 1,000 mg PO BID 10/22/24 11/18/24 carvedilol 3.125 mg tablet 3.125 mg PO BID 10/22/24 11/18/24 gabapentin 300 mg capsule 300 mg PO DAILY 10/22/24 11/18/24 lisinopril 40 mg tablet 40 mg PO DAILY 10/22/24 11/18/24 nifedipine 30 mg tablet,extended 30 mg PO HS 10/22/24 11/18/24 release Previous Rx's ?Medication ?Instructions ?Recorded ferrous sulfate 325 mg (65 mg 325 mg PO Q OTHER DAY #30 tabs 10/24/24 iron) tablet (FeroSul) Allergies Allergy/AdvReac Type Severity Reaction Status Date / Time No Known Allergies Allergy Verified 11/18/24 08:23 Review of Systems Review of Systems Systems Reviewed: All systems reviewed, normal except as documented Past Medical History Past Medical History CARDIAC: Positive Hypertension GASTROINTESTINAL: Positive Colorectal Cancer (COLOSTOMY) GENITOURINARY: Positive Genitourinary Disorders and Renal Disease REPRODUCTIVE: Positive Previous Pregnancies MUSCULOSKELETAL: Positive Fractures ENDOCRINE: Positive Diabetes Mellitus Type 2 HEMATOLOGIC: Positive Blood Disorders and Anemia OTHER HISTORY: Positive Blood Transfusions, Cancer and Colorectal Cancer (COLOSTOMY) Family History FAMILY HISTORY: Negative Family Cancer, Family Surgery or Family Anesthesia Reaction Surgical History SURGICAL: Positive Abdominal Surgery (COLOSTOMY) and Hip Sx Social History SMOKING STATUS: Never smoker ED Exam Narrative Physical exam: GENERAL APPEARANCE: alert and oriented x 4, no acute distress, appears generally weak HEENT: Normocephalic, atraumatic; pupils equal, round, reactive to light; EOMI; mucous membranes pink, moist; oropharynx clear NECK: Supple LUNGS: CTABL; no wheezes, no rales, no rhonchi HEART: Regular rate, regular rhythm; normal S1, S2; no murmurs ABDOMEN: non distended; normal BS; soft, no tenderness, no guarding, no rebound; no masses, no organomegaly, no hernia BACK: no CVA tenderness EXTREMITIES: atraumatic; no edema NEUROLOGIC: awake; alert and oriented x4; cranial nerves II-XII grossly intact; no focal sensory or motor deficits PSYCHIATRIC: appropriate mood and affect SKIN: warm, dry, mild pallor; no rashes Course Quality Measures Current suspected stage: sepsis Possible source: pulmonary Blood cultures ordered: completed in ED Antibiotic ordered: Yes Pertinent labs: 11/26/24 07:30 Lactic Acid 1.0 mMol/L (0.4-2.0) Procalcitonin 0.61 H ng/ml (0.0-0.49) sepsis Orders Category Date Time Status Bedside COVID-19 Antigen Test NOW Care 11/26/24 10:12 Active Bedside Influenza A&B Antigen Test NOW Care 11/26/24 10:12 Completed EKG (ED ONLY) *Do not use* NOW Care 11/26/24 06:[address] chest wo con Stat Exams 11/26/24 10:13 Completed EKG (ED Only) Stat Exams 11/26/24 06:24 Draft XR chest 2V Stat Exams 11/26/24 06:32 Completed XR knee comp LT 4V Stat Exams 11/26/24 10:14 Completed XR knee comp RT 4V Stat Exams 11/26/24 10:14 Completed ABG [Arterial Blood Gas] Stat Lab 11/26/24 11:08 Completed Blood Culture (Lab) Stat Lab 11/26/24 07:34 Received CBC Stat Lab 11/26/24 07:30 Completed Comprehensive Metabolic Panel Stat Lab 11/26/24 07:30 Completed D-Dimer Stat Lab 11/26/24 07:30 Completed Lactate (Lactic Acid) Stat Lab 11/26/24 07:30 Completed Mag [Magnesium] Stat Lab 11/26/24 07:30 Completed Procalcitonin Stat Lab 11/26/24 07:30 Completed Troponin I Stat Lab 11/26/24 07:30 Completed Urinalysis Stat Lab 11/26/24 07:20 Completed Urine Culture Stat Lab 11/26/24 07:20 Received Azithromycin Inj [Zithromax Inj] 500 mg Med 11/26/24 09:10 Discontinued Sodium Chloride 0.9% 250 ml [Ns] 250 ml IV X1 HYDROcodone*/APAP 5/325 [[place] 5/325] Med 11/26/24 10:14 Discontinued 1 tab PO X1 ONE Sodium Chloride 0.9% 1000 ml [Ns] 1,000 ml Med 11/26/24 09:36 Discontinued IV 999 mls/hr cefTRIAXone/D5w 1gm IV premix [Rocephin/D5w 1gm IV Med 11/26/24 09:10 Discontinued premix] 1 gm in 50 ml IV X1 Vital Signs Vital signs: Vital Signs Temperature 99.4 F 11/26/24 06:30 Pulse Rate 91 11/26/24 06:30 Respiratory Rate 19 11/26/24 06:30 Blood Pressure 126/69 11/26/24 06:30 Pulse Oximetry (%) 97 11/26/24 06:30 Oxygen Delivery Method Room Air 11/26/24 06:30 Pulse ox is 97% on room air which is adequate. Weakness MDM Narrative MDM Narrative:: [facility] am scribing for and in the presence of Dr. Sen. Patient data External records reviewed:: [facility] previous records (I reviewed outpatient oncology f/u note on 11/02/2024 ) Clinical information provided by:: patient and family Social determinants that could affect healthcare access:: none Patient has the following chronic illnesses:: metastatic colon cancer (dx 2022) s/p chemoradiation, s/p colectomy with colostomy (08/2023), hypertension, diabetes, hyperlipidemia, prior anemia requiring transfusion How is presenting disease/condition affected by chronic disease/condition?: exacerbated by Evaluation data The following diagnostics were reviewed and interpreted by me:: lab results, radiology exam(s) and EKG tracing(s) (EKG @ 06:27 AM. NSR, rate 90, LBBB, no acute ischemic changes, no STEMI. ) Lab and/or radiology exams considered but not ordered:: None Interpretation Summary: Ordering Physician: Cecelia GÓMEZ)Robert NP Date of Service: 11/26/24 Procedure(s): XR chest 2V Accession Number(s): [id number] cc: Radha Cristobal PA-C; Cecelia GÓMEZ)Robert NP; Mik Hyatt MD~ Examination: AP lateral chest 2 views Technique: Sitting portable AP lateral chest 2 views Date and time: November 26, 2024 0658 hrs., Comparison October 22, 2024 Indications: Coughing weakness beginning 3 days ago. Diagnosis rectosigmoid carcinoma Findings: Bibasilar pneumonia, significant left base Normal heart size Right internal jugular Port-A-Cath tip satisfactory position Subtle nodular densities in both lungs, the largest in the left upper lobe 20 mm, please see the CT chest report July 10, 2024 Impression: Bibasilar pneumonia Consider repeat CT chest without contrast to assess for progression of pulmonary nodular metastatic disease compared to the July 10, 2024 exam Dictated By: Mik Hyatt MD Signed By: <Electronically signed by Mik Hyatt MD in [place]> 11/26/24 0755 Ordering Physician: Cristel Sen MD Date of Service: 11/26/24 Procedure(s): CT chest wo con Accession Number(s): [id number] cc: Radha Cristobal PA-C; Mik Hyatt MD; Cristel Sen MD~ Examination: CT chest, without intravenous contrast. Sagittal and coronal 2-D reconstructions. Exam date and time: November 26, 2024 1110 hours COMPARISON: July 10, 2024 INDICATIONS: Coughing beginning 3 days ago, diagnosis malignant neoplasm rectum 2022, pulmonary nodular metastatic disease on CT chest July 10, 2024 CTDI:vol (mGy) 11.6 DLP: (mGycm) 363 Technique: Multiple 3.0 mm axial sections of the chest to been obtained. Bone and lung density settings are obtained. Sagittal and coronal 2-D reconstructions have been obtained. Low dose protocols were performed. One or more of the following dose reduction techniques were used; automated exposure control, adjustment of the mA and/or KV according to patient size, use of iterative reconstruction technique. Findings: Again noted 14 mm right tracheobronchial lymph node No thoracic aortic aneurysm dilatation Pulmonary artery segments are not enlarged Heavy calcification left anterior descending coronary artery Enlarging existing bilateral pulmonary nodules and new pulmonary nodules compared to July 10, 2024, the largest nodule is in the posterior left lung measuring 19 mm in the largest in the right lung posteriorly measures 22 mm as well as the left lower lobe nodule measuring 33 mm Pneumonia at the left lung base No visualized liver or splenic lesions Common bile duct measures 13 mm IMPRESSION: Progression of pulmonary nodular metastatic disease Pneumonia left base Recommend hepatobiliary sonography follow-up to assess enlarged common bile duct Dictated By: Mik Hyatt MD Signed By: <Electronically signed by Mik Hyatt MD in [place]> 11/26/24 1148 Ordering Physician: Cristel Sen MD Date of Service: 11/26/24 Procedure(s): XR knee comp RT 4V Accession Number(s): [id number] cc: Radha Cristobal PA-C; Mik Hyatt MD; Cristel Sen MD~ Examination: Right knee 4 views TECHNIQUE: AP oblique lateral axial right knee 4 views Date and time: November 26, 2024 1053 hours INDICATIONS: Patient fell down 2 days ago with injury to the knee, knee pain. FINDINGS: Advanced tricompartment osteoarthritis. No fracture or patellar dislocation IMPRESSION: No fracture or patellar dislocation Dictated By: Mik Hyatt MD Signed By: <Electronically signed by Mik Hyatt MD in [place]> 11/26/24 1118 Ordering Physician: Cristel Sen MD Date of Service: 11/26/24 Procedure(s): XR knee comp LT 4V Accession Number(s): [id number] cc: Radha Cristobal PA-C; Mik Hyatt MD; Cristel Sen MD~ Examination: Left knee 4 views TECHNIQUE: AP oblique lateral axial left knee 4 views Date and time: November 26, 2024 1022 hours INDICATIONS: Patient fell 2 days ago with injury to the knee, knee pain. FINDINGS: Advanced tricompartment osteoarthritis Prominent osteopenia. No fracture or dislocation IMPRESSION: No fracture or dislocation Dictated By: Mik Hyatt MD Signed By: <Electronically signed by Mik Hyatt MD in [place]> 11/26/24 1118 Medications / Prescriptions Medications or Prescriptions considered but not ordered:: None Medication administrations:: Medication Administration History Discontinued Medications Hydrocodone Bitart/Acetaminophen (Hydrocodone/Apap 5/325 Tablet) 1 tab PO X1 ONE Stop: 11/26/24 10:15 Last Admin: 11/26/24 10:23 Dose: 1 tab Documented By: BY Azithromycin 500 mg/ Sodium (Chloride) 250 mls @ 250 mls/hr IV X1 ONE Stop: 11/26/24 10:09 Last Admin: 11/26/24 10:08 Dose: 250 mls/hr Documented By: BY Ceftriaxone Sodium/Dextrose (Rocephin/D5w 1gm Iv Premix) 1 gm in 50 mls @ 100 mls/hr IV X1 ONE Stop: 11/26/24 09:39 Last Infusion: 11/26/24 10:04 Dose: Infused Documented By: Admin: 11/26/24 09:34 Dose: 100 mls/hr Documented By: BY Sodium Chloride (Ns) 1,000 mls @ 999 mls/hr IV .Q1H1M ONE Stop: 11/26/24 10:36 Last Admin: 11/26/24 10:11 Dose: 999 mls/hr Documented By: BY See above Consultations Consultation(s) initiated? (list below): No Diagnosis Weakness Differential Diagnosis: acute myocardial infarction, anemia, hypoglycemia, sepsis and dehydration Most likely diagnosis given after review of the tests above:: Pneumonia Sepsis Cancer with metastasis Admission Indicated Admission indicated?: indicated Admission Request Was there a request for admission?: Yes Admission Attestation Admission request attestation: Discussed case with [] from Hospitalist service regarding admission. Discussed patients ED course, exam findings, labs, and radiology results. The Hospitalist [agrees,declines] to accept the patient for admission. Disposition Plan Disposition Plan: Admit Critical Care Time Critical Care Time Critical Care Time: Yes Total Critical Care Time (min.): 35 Attestation: The high probability of sudden, clinically significant deterioration in the patient's condition required the highest level of my preparedness to intervene urgently. The services I provided to this patient were to treat and/or prevent clinically significant deterioration. Services included the following: chart data review, reviewing nursing notes and/or old charts, documentation time, mental health consultant collaboration regarding findings and treatment options, medication orders and management, direct patient care, vital sign assessments and ordering, interpreting and reviewing diagnostic studies and lab tests. Aggregate critical care time includes only time during which I was engaged in work directly related to the patient's care, as described above, whether at bedside or elsewhere in the Emergency Department. It did not include time spent performing other reported procedures or the services of residents, students, nurses or physician assistants. Discharge Plan Plan Patient Disposition: Admit Acute Care w/in Hospital Prescriptions/Referrals Prescriptions/Med Rec: No Action lisinopril 40 mg tablet 40 mg PO DAILY nifedipine 30 mg tablet extended release 30 mg PO HS carvedilol 3.125 mg tablet 3.125 mg PO BID gabapentin 300 mg capsule 300 mg PO DAILY capecitabine 500 mg tablet 1,000 mg PO BID ferrous sulfate [FeroSul] 325 mg (65 mg iron) tablet 325 mg PO Q OTHER DAY Qty: 30 0RF Referrals: Radha Cristobal PA-C [Primary Care Provider, Emergency Medicine] - In 1 week Problem List Clinical Impression: Pneumonia, Sepsis, Cancer, metastatic Patient/Caregiver Discharge Instructions Print Language: Setswana Stand Alone Forms: Lily Award Info., Patient Portal Info Letter
[2024-11-26] MEDS: AZITHROMYCIN INJ 500 MG in SODIUM CHLORIDE 0.9% 250 ML 250 ML 250 MG IV (10:08)
[2024-11-26] MEDS: SODIUM CHLORIDE 0.9% 1000 ML 1,000 ML 999 ML IV (10:11)
--- NOTE | 2024-11-26 10:13 | XR_ITS ---
Examination: CT chest, without intravenous contrast. Sagittal and coronal 2-D reconstructions. Exam date and time: November 26, 2024 1110 hours COMPARISON: July 10, 2024 INDICATIONS: Coughing beginning 3 days ago, diagnosis malignant neoplasm rectum 2022, pulmonary nodular metastatic disease on CT chest July 10, 2024 CTDI:vol (mGy) 11.6 DLP: (mGycm) 363 Technique: Multiple 3.0 mm axial sections of the chest to been obtained. Bone and lung density settings are obtained. Sagittal and coronal 2-D reconstructions have been obtained. Low dose protocols were performed. One or more of the following dose reduction techniques were used; automated exposure control, adjustment of the mA and/or KV according to patient size, use of iterative reconstruction technique. Findings: Again noted 14 mm right tracheobronchial lymph node No thoracic aortic aneurysm dilatation Pulmonary artery segments are not enlarged Heavy calcification left anterior descending coronary artery Enlarging existing bilateral pulmonary nodules and new pulmonary nodules compared to July 10, 2024, the largest nodule is in the posterior left lung measuring 19 mm in the largest in the right lung posteriorly measures 22 mm as well as the left lower lobe nodule measuring 33 mm Pneumonia at the left lung base No visualized liver or splenic lesions Common bile duct measures 13 mm IMPRESSION: Progression of pulmonary nodular metastatic disease Pneumonia left base Recommend hepatobiliary sonography follow-up to assess enlarged common bile duct
--- NOTE | 2024-11-26 10:14 | XR_ITS ---
Examination: Right knee 4 views TECHNIQUE: AP oblique lateral axial right knee 4 views Date and time: November 26, 2024 1053 hours INDICATIONS: Patient fell down 2 days ago with injury to the knee, knee pain. FINDINGS: Advanced tricompartment osteoarthritis. No fracture or patellar dislocation IMPRESSION: No fracture or patellar dislocation
--- NOTE | 2024-11-26 10:14 | XR_ITS ---
Examination: Left knee 4 views TECHNIQUE: AP oblique lateral axial left knee 4 views Date and time: November 26, 2024 1022 hours INDICATIONS: Patient fell 2 days ago with injury to the knee, knee pain. FINDINGS: Advanced tricompartment osteoarthritis Prominent osteopenia. No fracture or dislocation IMPRESSION: No fracture or dislocation
[2024-11-26] MEDS: HYDROcodone/APAP 5/325 TABLET 1 TAB PO (10:23)
[2024-11-26 10:48] LABS: D-Dimer 3640 ng/mL (<600)
[2024-11-26 11:15] LABS: Allen Test Performed/OK; Base Excess -10 (-3-3); HCO3 15 mEq/L (20-26); Inspired Oxygen, FIO2 21 %; O2 Saturation 97 % (91-98); PCO2 25 mmHg (32.0-48.0); PO2 85 mmHg (83-108); Puncture Site Left Radial; pH, Arterial 7.38 (7.35-7.45)
--- NOTE | 2024-11-26 13:01 | PC.NURSE ---
patient alert and oriented x3, family at bedside.
--- NOTE | 2024-11-26 13:46 | ESHP_ITS ---
<Statement entered by Carlos Ledesma MD - 11/26/24 15:45> 79-year-old female with past medical history of metastatic colon cancer status post chemoradiation, colectomy with colostomy 09/03, CKD, insulin-dependent type 2 diabetes, hypertension and hyperlipidemia presented on 11/26 with generalized weakness and episode of a fall without loss of consciousness. Patient also reporting dysuria which has not improved since last admission. In the ED patient's vitals were stable but labs are significant for severely elevated leukocytosis, urinalysis with signs of infection but no signs of endorgan dysfunction or elevated lactic acidosis. 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 Procalcitonin is mildly elevated at 0.61. Bilateral knee x-rays negative CT of the chest shows progression of pulmonary nodular metastatic disease, pneumonia in the left base and a common bile duct which measures 13 mm without elevation in liver function enzymes. Patient will be admitted for complicated UTI and will be started on IV antibiotics with Zosyn as patient has history of ESBL. I have personally seen and examined the patient. I agree with the resident's assessment and plan as documented below. Carlos Ledesma DO PGY-2 Internal Medicine - [facility] Documentation for date of: 11/26/24 HPI History of Present Illness History of present illness: Patient is an 79-year-old female with past medical history of metastatic colon cancer, s/p chemoradiation (CAPOX chemo), colectomy with colostomy (08/2024), CKD, IDDM2 w/ neuropathy, hypertension, hyperlipidemia, and anemia who presented on 11/26/24 with generalized weakness s/p fall yesterday. Denies LOC or head trauma, reported that she fell because her knees hurt and she felt weak. Endorses dysuria, denies hematuria or urinary frequency. No fever, nausea, vomiting, chills, abdominal pain. ED Course: -Initial vitals were BP 126/69, HR 91, RR 19, afebrile, 97% on room air -Labs significant for WBC 27.6, hemoglobin 8.6. Sodium 132, bicarb 14.6, anion gap 10, BUN 25, creatinine 1.3, procalcitonin 0.61. UA is positive for nitrates and leukocyte esterase, 3+ blood, RBC 68, WBC 91, bacteria rare. -Imaging included chest x-ray shows bibasilar pneumonia. Chest CT shows progression of pulmonary nodular metastatic disease and left base pneumonia. Bilateral knee x-ray negative for fractures. -In the ED, patient was given IV ceftriaxone x 1, azithromycin x 1, 1 L NS bolus, [place] x 1. -Patient was admitted for complicated UTI. Review of Systems Review of systems otherwise negative except what is mentioned above. Past Medical History: as above Family History: Father diabetes, no family history of cancer Surgical History: Colectomy with colostomy (08/2023), cholecystectomy (2019) Social History: Denies history of smoking, denies current alcohol use, denies recreational drug use Current Medications: Capecitabine 1000 mg twice daily, carvedilol 3.125 mg twice daily, ferrous sulfate every other day, gabapentin 300 mg daily, insulin glargine 20 units nightly, lisinopril 40 mg daily, nifedipine 30 mg nightly Allergies: No known drug allergies Exam Vital Signs Temp Pulse Resp BP Pulse Ox O2 Del Method 98.8 F 75 22 H 101/44 L 97 Room Air 11/26/24 08:29 11/26/24 13:28 11/26/24 13:28 11/26/24 13:28 11/26/24 13:28 11/26/24 13:28 Narrative Exam Physical Exam General: Awake and in no acute distress. Weak appearing. Cachectic. HEENT: Normocephalic, atraumatic, mucous membranes moist. Heart: Regular rate and rhythm, normal S1 and S2, no murmurs appreciated. Lungs: Decreased breath sounds in left lower quadrant. Otherwise clear. Abdomen: Soft, nondistended, nontender, positive bowel sounds. No guarding or rebound tenderness. LLQ colostomy bag filled with stool, no visible blood. Neurologic: Alert and oriented x3, no gross neurological deficit, and patient able to move all 4 extremities. Extremities: No edema. Skin: No rash or ecchymoses. Results: Labs 11/27/24 05:21 11/27/24 05:21 Labs: Short CBC 11/26/24 Range/Units 07:30 WBC 27.6 H (3.6-11.0) Thou/mm3 Hgb 8.6 L (12.0-16.0) g/dL Hct 25.3 L (36.0-46.0) % Plt Count 224 (140-440) Thou/mm3 BMP 11/26/24 07:30 Sodium 132 L Potassium 4.2 Chloride 107 Carbon Dioxide 14.6 L* BUN 25 H Creatinine 1.3 Glucose 126 H Calcium 8.5 Cardiac Enzymes 11/26/24 Range/Units 07:30 Troponin I < 0.020 (0.0-0.045) ng/mL Liver Function 11/26/24 Range/Units 07:30 Total Bilirubin 0.7 (0.3-1.2) mg/dL AST 15 (0-34) U/L ALT < 7 L (10-49) U/L Alkaline Phosphatase 101 (46-116) U/L Albumin 3.4 (3.4-4.8) gm/dL Urine 11/26/24 Range/Units 07:20 Urine Color Drk-Yellow A (Lt Yel-Yel) Urine Clarity Hazy (Clear/Hazy) Urine pH 6.0 (5.0-7.0) Ur Specific [place] 1.015 (1.001-1.035) Urine Protein 1+ A (Neg - Trace) Urine Glucose (UA) Negative (Negative) ABG Interpretation ABG results: 11/26/24 11:08 ABG pH 7.38 ABG pCO2 25 L ABG pO2 85 ABG HCO3 15 L ABG O2 Saturation 97 ABG Base Excess -10 L Quality Measures Quality Measures sepsis Current suspected stage: ruled out (does not meet sepsis criteria) Possible source: pulmonary Blood cultures ordered: completed in ED Antibiotic ordered: Yes Advance care planning discussed with:: patient Medications Home Medications and Allergies Home Medications ?Medication ?Instructions ?Recorded ?Confirmed ?Type capecitabine 500 mg tablet 1,000 mg PO BID 10/22/24 History carvedilol 3.125 mg tablet 3.125 mg PO BID 10/22/24 History gabapentin 300 mg capsule 300 mg PO DAILY 10/22/24 History lisinopril 40 mg tablet 40 mg PO DAILY 10/22/2411/10 History Held on 11/26/24. Instructions: Doctor's Order nifedipine 30 mg tablet,extended 30 mg PO HS 10/22/24 11/26/24 History release insulin glargine 100 unit/mL (3 20 unit subcut QPM 11/26/24 History mL) subcutaneous pen (Basaglar KwikPen U-100 Insulin) Allergies Allergy/AdvReac Type Severity Reaction Status Date / Time No Known Allergies Allergy Verified 11/18/24 08:23 Visit Medications Acetaminophen (Acetaminophen 325 Mg Tablet) 650 mg PO Q6H PRN PRN Reason: Fever >101.5 and pain 1-3 Stop: 12/26/24 13:29 Heparin Sodium (Porcine) (Heparin Sod Inj 5000 Unit/Ml Vial) 5,000 unit SC Q8HR MARION Stop: 12/10/24 13:59 Piperacillin/Tazobactam/Dextrose (Zosyn) 50 mls @ 100 mls/hr IV Q6HR MARION; Protocol Stop: 12/03/24 13:41 Discontinued Medications Hydrocodone Bitart/Acetaminophen (Hydrocodone/Apap 5/325 Tablet) 1 tab PO X1 ONE Stop: 11/26/24 10:15 Last Admin: 11/26/24 10:23 Dose: 1 tab Azithromycin 500 mg/ Sodium (Chloride) 250 mls @ 250 mls/hr IV X1 ONE Stop: 11/26/24 10:09 Last Infusion: 11/26/24 11:10 Dose: Infused Ceftriaxone Sodium/Dextrose (Rocephin/D5w 1gm Iv Premix) 1 gm in 50 mls @ 100 mls/hr IV X1 ONE Stop: 11/26/24 09:39 Last Infusion: 11/26/24 10:04 Dose: Infused Sodium Chloride (Ns) 1,000 mls @ 999 mls/hr IV .Q1H1M ONE Stop: 11/26/24 10:36 Last Infusion: 11/26/24 11:15 Dose: Infused Ceftriaxone Sodium/Dextrose (Rocephin/D5w 1gm Iv Premix) 1 gm in 50 mls @ 100 mls/hr IV QDAY MARION Stop: 12/04/24 08:59 Assessment & Plan Plan Patient is an 79-year-old female with past medical history of metastatic colon cancer, s/p chemoradiation (CAPOX chemo), 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 #Complicated UTI #Hx ESBL UTI #Weakness Presented with weakness s/p fall yesterday. Denies LOC, dizziness, lightheadedness, or head trauma. Endorses dysuria, denies urinary frequency or hematuria. Does not meet sepsis criteria (only WBC 26 and suspected source of infection) UA is positive for nitrates and leukocyte esterase, 3+ blood, RBC 68, WBC 91, bacteria rare. Previously treated for UTI on previous admission 10/22-10/24, was treated with IV CFX and discharged with Augmentin. Urine culture grew ESBL. S/p IV CFX x1 in ED. Plan: - IV Zosyn (11/26- - Follow up urine culture - CTM WBC - PT consulted #Metastatic colon cancer, on chemotherapy #Pulmonary nodular metastatic disease #Left base PNA? #S/p colectomy with colostomy (08/2023) Follows oncologist Dr. Lisa. Currently on chemotherapy treatment with capecitabine 1000 mg BID, last seen on 11/02/24 and was considering IV chemotherapy at the time. Chest CT shows progression of pulmonary nodular metastatic disease and left base PNA. - Continue capecitabine - Abx as above - Oxygen prn #Acute on chronic non anion gap metabolic acidosis Likely secondary to renal tubular acidosis, previously had uncontrolled hyperkalemia. Baseline bicarb 17.5-19. No diarrhea per history. Given ABG showed pH 7.38, pCO2 25, HCO3 15. Sodium 132, potassium WNL. May have worsened in setting of complicated UTI. - Antibiotics as above #Chronic anemia, normocytic Previously admitted 10/22-10/24 for acute on chronic anemia, likely multifactorial in setting of post menopausal bleeding, metastatic colon cancer, and STONE. Denies hematuria or bleeding anywhere at this time. Iron panel 10/23 shows low iron and ferritin, indicative of STONE, also possibly ACD in setting of CKD. Medications include ferrous sulfate 325mg every other day. Plan: - Hold iron in setting of active infection - CTM Hgb - Transfuse if Hgb <7 #IDDM2 with neuropathy Home meds include insulin glargine 20 units nightly and gabapentin 300 mg daily. A1c 11/26 5.6. - SSI - Continue gabapetin 300 mg daily #HTN #HLD #CKD - Continue home carvedilol and nifedipine - Follow up lipid panel - CTM renal function Health Maintenance Disposition: med tele DVT prophylaxis: heparin GI prophylaxis: none needed Diet: carb consistent CODE STATUS: FULL Patient plan of care was discussed with the resident, Dr. Ledesma, and attending physician, Dr. Mann. Radha Clayton, PGY-1 Attending Provider Attestation/Addendum I have examined the patient, reviewed labs and imaging findings, discussed the case with the resident(s), and reviewed entered orders. I agree with the plan of care as outlined in this note, with these additional summaries/recommendations: After examination of the patient and review of the clinical data, I feel that this patient needs admission to the hospital for further treatment and evaluation. Patient is a 79-year-old female with a medical history of metastatic colon cancer, status post chemo and radiation, status post colectomy and colostomy, diabetes mellitus type 2 complicated by nephropathy and CKD, primary hypertension, hyperlipidemia, and anemia presents to [facility] emergency department on 11/26/2024 with chief complaint of generalized weakness and urinary symptoms. Patient seen at bedside. She endorses systemic symptoms of generalized weakness, fever/chills, diaphoresis, and urinary symptoms. Given that patient has systemic symptoms, underlying immunosuppression from colon cancer, and history of ESBL she will be admitted to the hospital for acute complicated urinary tract infection. We will start broad-spectrum antibiotics and follow-up urine plus blood cultures. Pro-[place] elevated. Significant leukocytosis with WBC count 27.6. Trend hematology panel daily. Patient has acute on chronic metabolic acidosis with respiratory compensation. Chronic acidosis most likely related to underlying malignancy. Currently patient is well compensated with normal pH and we will monitor for now. Patient has underlying CKD which appears at baseline. Continue to avoid nephrotoxic agents and renally dose medications. Continue home antihypertensives as tolerated. 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 Start insulin sliding scale with Accu-Cheks. Target blood sugar 140-180 while hospitalized. Order physical therapy consult. Patient updated on the plan and in agreement. All questions answered to satisfaction. Please see residents note for additional details and management. Dr. Mackenzie MD
[2024-11-26 14:14] LABS: Glucose Estimated Average 114 mg/dL (80-131); Hemoglobin A1C 5.6 % Hgb (4.8-6.0)
--- NOTE | 2024-11-26 14:25 | PC.NURSE ---
patient noted to have pink spotting in pad upon changing brief and urinating
[2024-11-26] MEDS: PIPER/TAZO 3.375 GM PREMIX 3.375 GM/50 ML BAG IV ×2 (15:14→21:00)
[2024-11-26] MEDS: HEPARIN SOD INJ 5000 UNIT/ML VIAL SC (15:16)
--- NOTE | 2024-11-26 16:30 | PC.NURSE ---
patient's daughters at bedside, state they live in [place] and will not bring medications today nor tomorrow.
[2024-11-26] MEDS: INSULIN LISPRO (AdmeLOG) 1 UNIT/0.01 ML UNIT SC ×2 (17:40→21:02)
[2024-11-26] MEDS: Magnesium Sulfate 4 GM Ivpb 4 GM/50 ML BAG IV (17:40)
[2024-11-26] MEDS: ACETAMINOPHEN 325 MG TABLET 650 MG PO (19:41)
[2024-11-26 20:26] LABS: Cardiac Risk Estimate 5.6 RATIO (3.7-5.6); Cholesterol 90 mg/dL (132-200); HDL Cholesterol 16 mg/dL (40-60); LDL Cholesterol,Calculated 43 mg/dL (0-130); Triglycerides 155 mg/dL (30-150)
[2024-11-26] MEDS: CAPECITABINE 500 MG PO (20:56)
[2024-11-27] VITALS (15 sets, daily range): BP systolic 112–137; BP diastolic 55–69; PULSE 63–90; RESP 16–98; TEMP 36.3–36.7; O2SAT 94–98
[2024-11-27] MEDS: PIPER/TAZO 3.375 GM PREMIX 3.375 GM/50 ML BAG IV ×3 (05:31→21:07)
[2024-11-27 06:06] LABS: Basophils # (Auto) 0.1 Thou/mm3 (0.0-0.2); Basophils % (Auto) 0 % (0-2.5); Eosinophils # (Auto) 0.2 Thou/mm3 (0.0-0.5); Eosinophils % (Auto) 1 % (0-10); Hematocrit 24.7 % (36.0-46.0); Hemoglobin 8.3 g/dL (12.0-16.0); Immature Granulocytes Auto 0.24 Thou/mm3 (0.00-0.00); Lymphocytes # (Auto) 1.8 Thou/mm3 (1.0-4.8); Lymphocytes % (Auto) 6 % (10-50); Mean Corpuscular HGB Conc 33.6 g/dl (31.0-37.0); Mean Corpuscular Hemoglobin 34.2 pg (25.0-35.0); Mean Corpuscular Volume 102 fL (80-100); Monocytes # (Auto) 0.8 Thou/mm3 (0.0-0.8); Monocytes % (Auto) 3 % (0-12); Neutrophils # (Auto) 25.6 Thou/mm3 (1.8-7.7); Neutrophils % (Auto) 89 % (37-80); Nucleated Red Blood Cell # 0.00 Thou/mm3 (0.00-0.00); Nucleated Red Blood Cell % 0 /100 WBC (0); Platelet Count 212 Thou/mm3 (140-440); RDW Standard Deviation 68.3 fL (36.4-46.3); Red Blood Count 2.43 Miln/mm3 (4.00-5.20); White Blood Count 28.7 Thou/mm3 (3.6-11.0)
[2024-11-27 06:40] LABS: Alanine Aminotransferase < 7 U/L (10-49); Albumin, Serum 3.0 gm/dL (3.4-4.8); Albumin/Globulin Ratio 1.2 (1.2-2.2); Alkaline Phosphatase 94 U/L (46-116); Anion Gap 11 (7-16); Aspartate Amino Transferase 11 U/L (0-34); BUN/Creatinine Ratio 18 Ratio (12-20); Bilirubin,Total 0.6 mg/dL (0.3-1.2); Blood Urea Nitrogen 25 mg/dL (9-23); Calcium 8.0 mg/dL (8.3-10.6); Calcium (Corrected) 8.8 mg/dL (8.5-10.1); Chloride 111 mMol/L (98-107); Creatinine (Component) 1.4 mg/dL (0.6-1.3); Estimated Creatinine Clearance 24.9 mL/min (>60); Globulin 2.5 gm/dL (2.3-3.5); Glucose 132 mg/dL (74-106); Magnesium 2.6 mg/dL (1.6-2.6); Osmolality,Calculated 280 (275-295); Potassium 4.7 mMol/L (3.4-5.1); Sodium 137 mMol/L (136-145); Total Protein 5.5 gm/dL (5.7-8.2); eGFR 38 See Note
[2024-11-27 06:46] LABS: Carbon Dioxide 14.6 mMol/L (20.0-31.0)
[2024-11-27] MEDS: RINGERS LACTATED 1000 ML 1,000 ML 75 ML IV (09:56)
[2024-11-27] MEDS: GABAPENTIN 300 MG CAPSULE PO (09:57)
[2024-11-27] MEDS: AZITHROMYCIN INJ 500 MG in SODIUM CHLORIDE 0.9% 250 ML 250 ML 250 MG IV (09:57)
[2024-11-27] MEDS: CAPECITABINE 500 MG PO ×2 (09:58→20:43)
--- NOTE | 2024-11-27 10:57 | PC.PT ---
PT eval only. Patient have supportive daughters that can assist patient at home.
--- NOTE | 2024-11-27 11:59 | ESPR_ITS ---
<Statement entered by Carlos Ledesma MD - 11/27/24 17:40> Patient seen and assessed in hospital bed without any concerning symptoms noted. Patient continues to be treated with IV antibiotics for GNR UTI; pending speciation. There was some concern for urinary incontinent as such a bladder scan was ordered which showe ~800cc of urine; at which point a Nixon catheter was placed. Initially there was some orange-colored urine in the bag; however, later, a mixture of dark blood with purulent discharge roughly measuring 150- 200cc was seen in the bag. There is some concern for possible fistula; as such, Nixon was replaced and now current Nixon is draining urine. Will consult urologist for recommendations and consider ordering further imaging studies to elucidate findings above. I have personally seen and examined the patient. I agree with the resident's assessment and plan as documented below. Carlos Ledesma, PGY-2 Internal Medicine - [facility] Documentation for date of: 11/27/24 Subjective Subjective Interval history: No acute events overnight. Complaining of urinary retention this morning, reports that she has to sit up in a certain position and strain to urinate. Continues to endorse dysuria but denies hematuria. Bladder scan showed 800 mL urine retention in bladder, Nixon inserted and drained 300 mL purulent fluid. Continued to show urine retention, reinserted Nixon and drained 700 cc red tinged urine with clots. Consulted urologist Dr. Anton who will see patient tomorrow. Per daughter, patient also has intermittent diarrhea every other week via colostomy bag, may be contributing to non anion gap metabolic acidosis. Will follow up urine studies. WBC uptrended, will continue IV Zosyn per previous sensitivities. Will consult ID Dr. Velez tomorrow for antibiotic recommendations. Preliminary cultures grew GNR, pending final cultures and sensitivities. Exam Vital Signs Temp Pulse Resp BP Pulse Ox O2 Del Method 97.3 F 88 16 128/69 97 Room Air 11/27/24 08:00 11/27/24 09:57 11/27/24 08:00 11/27/24 09:57 11/27/24 08:00 11/27/24 08:00 Narrative Exam Physical Exam General: Awake and in no acute distress. Conversational. Cachectic. HEENT: Normocephalic, atraumatic, mucous membranes moist. Heart: Regular rate and rhythm, normal S1 and S2, no murmurs appreciated. Lungs: CTAB. Abdomen: Soft, nondistended, nontender, positive bowel sounds. No guarding or rebound tenderness. LLQ colostomy bag with some formed stool, no visible blood. Site clean and intact. Neurologic: Alert and oriented x3, no gross neurological deficit, and patient able to move all 4 extremities. Extremities: No edema. Skin: No rash or ecchymoses. Objective Labs 11/28/24 04:45 11/28/24 04:45 Labs: Laboratory Results - last 24 hr 11/26/24 11/26/24 11/27/24 07:30 18:53 05:21 WBC 28.7 H RBC 2.43 L Hgb 8.3 L Hct 24.7 L MCV 102 H MCH 34.2 MCHC 33.6 RDW Std Deviation 68.3 H Plt Count 212 Neut % (Auto) 89 H Lymph % (Auto) 6 L [place] % (Auto) 3 Eos % (Auto) 1 Baso % (Auto) 0 Neut # (Auto) 25.6 H Lymph # (Auto) 1.8 [place] # (Auto) 0.8 Eos # (Auto) 0.2 Baso # (Auto) 0.1 Immature Gran # (Auto) 0.24 H Absolute Nucleated RBC 0.00 Immature Gran % 1 H Nucleated RBC % 0 Sodium 137 Potassium 4.7 D Chloride 111 H Carbon Dioxide 14.6 L* Anion Gap 11 BUN 25 H Creatinine 1.4 H Estim Creat Clear Calc 24.9 L eGFR 38 L BUN/Creatinine Ratio [address] Glu mg/dL 114 Hemoglobin A1c 5.6 Calculated Osmolality 280 Calcium 8.0 L Corrected Calcium 8.8 Magnesium 2.6 Total Bilirubin 0.6 AST 11 ALT < 7 L Alkaline Phosphatase 94 Total Protein 5.5 L Albumin 3.0 L Globulin 2.5 Albumin/Globulin Ratio 1.2 Triglycerides 155 H Cholesterol 90 L LDL Cholesterol, Calc 43 HDL Cholesterol 16 L Cholesterol/HDL Ratio 5.6 ABG Interpretation ABG results: 11/26/24 11:08 ABG pH 7.38 ABG pCO2 25 L ABG pO2 85 ABG HCO3 15 L ABG O2 Saturation 97 ABG Base Excess -10 L Quality Measures Quality Measures sepsis Current suspected stage: ruled out (does not meet sepsis criteria) Possible source: pulmonary Blood cultures ordered: completed in ED Antibiotic ordered: Yes Advance care planning discussed with:: patient Assessment & Plan Assessment Current Active Medications: Generic Name Dose Route Start Last Admin Trade Name Freq PRN Reason Stop Dose Admin Acetaminophen 650 mg 11/26/24 13:30 11/26/24 19:41 Acetaminophen 325 Mg Tablet PO 12/26/24 13:29 650 mg Q6H PRN Administration Fever >101.5 and pain 1-3 Carvedilol 3.125 mg 11/26/24 21:00 11/27/24 09:57 Carvedilol 3.125 Mg Tablet PO 12/26/24 20:59 3.125 mg BID MARION Administration Capecitabine 500 Mg 0 ea 11/26/24 21:00 11/27/24 09:58 Tablet PO 12/03/24 21:01 3 tablet BID MARION Administration Dextrose 25 ml 11/26/24 15:47 Dextrose 50%-Water Inj 50 Ml Syringe IV 12/26/24 15:46 Q15MIN PRN BG 50-70 responsive npo pt Dextrose 50 ml 11/26/24 15:47 Dextrose 50%-Water Inj 50 Ml Syringe IV 12/26/24 15:46 Q15MIN PRN BG <50 OR BG <70 & pt unresponsive Gabapentin 300 mg 11/27/24 09:00 11/27/24 09:57 Gabapentin 300 Mg Capsule PO 12/27/24 08:59 300 mg DAILY MARION Administration Glucagon 1 mg 11/26/24 15:47 Glucagon Inj 1 Mg Vial IM Q15MIN PRN BG <70, and no IV access Heparin Sodium (Porcine) 5,000 unit 11/26/24 14:00 11/27/24 05:19 Heparin Sod Inj 5000 Unit/Ml Vial SC 12/10/24 13:59 Not Given Q8HR MARION Piperacillin/Tazobactam/Dextrose 3.375 gm in 50 mls @ 12.5 mls/hr 11/26/24 22:00 11/27/24 09:31 Zosyn IV 12/03/24 21:59 Infused Q8HR MARION Infusion Protocol Azithromycin 500 mg/ Sodium 250 mls @ 250 mls/hr 11/27/24 09:00 11/27/24 09:57 Chloride IV 12/04/24 08:59 250 mls/hr QDAY MARION Administration Lactated Ringer's 1,000 mls @ 75 mls/hr 11/27/24 08:49 11/27/24 09:56 Lactated Ringers IV 11/27/24 22:08 75 mls/hr .[id number] ONE Administration Insulin Human Lispro 0 unit 11/26/24 17:00 11/27/24 07:52 Insulin Lispro (Admelog) 1 Unit/0.01 Ml Unit SC 12/26/24 16:59 Not Given ACHS MARION Protocol Nifedipine 30 mg 11/26/24 21:00 11/26/24 20:56 Nifedipine Xl 30 Mg Tabcr PO 12/26/24 20:59 Not Given HS MARION Plan Patient is an 79-year-old female with past medical history of metastatic colon cancer, s/p chemoradiation (CAPOX chemo), 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 #Urinary retention #Hematuria #C/f pelvic abscess Complaining of urinary retention, improves when sitting up in certain position. Bladder scan showed 800mL retained urine, inserted Nixon cathether with 200-300 mL of purulent output. Reinserted Nixon catheter and drained approximately 700 mL red tinged urine with clots. Follow up bladder US 11/27 showed no mass or calculi. Pelvic MRI 10/24 showed intact urinary bladder with no free fluid in pelvis. Plan: - Nixon catheter in place - Consulted urologist Dr. Anton, appreciate recommendations - CTM urinary output - Hold anticoagulation #Complicated UTI #Hx ESBL UTI #Weakness Presented with weakness s/p fall yesterday. Denies LOC, dizziness, lightheadedness, or head trauma. Endorses dysuria, denies urinary frequency or hematuria. Does not meet sepsis criteria (only WBC 26 and suspected source of infection) UA is positive for nitrates and leukocyte esterase, 3+ blood, RBC 68, WBC 91, bacteria rare. Previously treated for UTI on previous admission 10/22-10/24, was treated with IV CFX and discharged with Augmentin. Urine culture grew ESBL. S/p IV CFX x1 in ED. Plan: - IV Zosyn (11/26- - Follow up urine culture - CTM WBC - Consider consulting ID if leukocytosis continues to increase - PT consulted - has adequate family support, refused home health PT #Metastatic colon cancer, on chemotherapy #Pulmonary nodular metastatic disease #Left base PNA? #S/p colectomy with colostomy (08/2023) Follows oncologist Dr. Lisa. Currently on chemotherapy treatment with capecitabine 1000 mg BID, last seen on 11/02/24 and was considering IV chemotherapy at the time. Chest CT shows progression of pulmonary nodular metastatic disease and left base PNA. - Continue capecitabine - Start on azithromycin (11/27- - Abx as above - Oxygen prn #Acute on chronic non anion gap metabolic acidosis Possibly renal tubular acidosis (Type 1 vs 2) versus intermittent diarrhea (which patient has every other week per family) via colostomy bag. Serum bicarb 14.6, baseline 17.5-19. ABG pH 7.38, pCO2 25, HCO3 15. Sodium 132, potassium WNL. Urine pH previously 8.0 on 10/22, now 6.0. Does not take bicarb supplement at home. S/p 1L NS bolus in ED. - Follow up urine Na, potassium, and chloride to determine urine anion gap - Antibiotics as above #Chronic anemia, normocytic Previously admitted 10/22-10/24 for acute on chronic anemia, likely multifactorial in setting of post menopausal bleeding, metastatic colon cancer, and STONE. Denies hematuria or bleeding anywhere at this time. Iron panel 10/23 shows low iron and ferritin, indicative of STONE, also possibly ACD in setting of CKD. Medications include ferrous sulfate 325mg every other day. Plan: - Hold iron in setting of active infection - CTM Hgb - Transfuse if Hgb <7 #IDDM2 with neuropathy Home meds include insulin glargine 20 units nightly and gabapentin 300 mg daily. A1c 11/26 5.6. - SSI - Continue gabapetin 300 mg daily #HTN #HLD #CKD Lipid panel 11/27: trig 155, cholesterol 90, LDL 43, HDL 16. Baseline creatinine 1.2-1.7. - Continue home carvedilol and nifedipine - CTM renal function Health Maintenance Disposition: med tele DVT prophylaxis: SCDs GI prophylaxis: none needed Diet: carb consistent CODE STATUS: FULL Patient plan of care was discussed with the resident, Dr. Ledesma, and attending physician, Dr. Mann. Radha Clayton, PGY-1 Attending Provider Attestation/Addendum I have examined the patient, reviewed labs and imaging findings, discussed the case with the resident(s), and reviewed entered orders. I agree with the plan of care as outlined in this note, with these additional summaries/recommendations: Patient is a 79-year-old female with a medical history of metastatic colon cancer, status post chemo and radiation, status post colectomy and colostomy, diabetes mellitus type 2 complicated by nephropathy and CKD, primary hypertension, hyperlipidemia, and anemia presents to [facility] emergency department on 11/26/2024 with chief complaint of generalized weakness and urinary symptoms. Patient seen at bedside. No acute overnight events. Patient admitted for acute complicated urinary tract infection. Continue broad-spectrum antibiotics for hx of ESBL and follow-up urine plus blood cultures. Significant leukocytosis still present and continue to monitor for improvement while treating underlying infection. Trend hematology panel daily. Patient has acute on chronic metabolic acidosis with respiratory compensation. Chronic acidosis most likely related to underlying malignancy. Currently patient is well compensated with normal pH and we will monitor for now. Patient has underlying CKD which appears at baseline. Continue to avoid nephrotoxic agents and renally dose medications. Continue home antihypertensives as tolerated. 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 Start insulin sliding scale with Accu-Cheks. Target blood sugar 140-180 while hospitalized. Order physical therapy consult. Patient updated on the plan and in agreement. All questions answered to satisfaction. Please see residents note for additional details and management. Dr. Mackenzie MD
[2024-11-27] MEDS: INSULIN LISPRO (AdmeLOG) 1 UNIT/0.01 ML UNIT SC ×3 (12:22→20:47)
--- NOTE | 2024-11-27 14:17 | XR_ITS ---
Examination: Ultrasound soft tissue urinary bladder Technique: Grayscale sonographic images soft tissue urinary bladder Date and time: November 27, 2024 1517 hrs. Indications: Pelvic pain this week, clinical diagnosis pelvic abscess Findings: No bladder mass or bladder calculi Bladder prevoid volume 710 cc Impression: No bladder mass or calculi
[2024-11-27] MEDS: HEPARIN SOD INJ 5000 UNIT/ML VIAL SC (14:36)
--- NOTE | 2024-11-27 15:31 | PC.SS ---
SS met with patient and daughters regarding her d/c plan. Pt is alert/oriented. Pt was admitted for Complicated UTI. Pt confirmed demographic and contact information is correct on facesheet. Pt resides with daughters and niece's family. Pt ambulates using a 2 wheel walker. Pt is ok with all ADLs. Patient?s pharmacy of choice is [facility] in [place]. Pt named her niece, Janina Lewis medical decision maker if she is unable. Patient?s choice is to return home upon d/c. Pt states is diabetic, has glucometer, and test strips. Pt is not on dialysis. SS provided dtr with IHSS information to follow up. Daughters state pt is unable to receive IHSS. Pt followed up with PCP last week. D/C plan: Return home Next of Kin: Janina Lewis, niece, phone# [phone] PCP: Dr. Radha Cristobal Address: Correct on facesheet
[2024-11-27 18:38] LABS: Ammonia 13 uMol/L (11-32)
[2024-11-27] MEDS: NIFEdipine XL 30 MG TABCR PO (20:42)
[2024-11-28] VITALS (10 sets, daily range): BP systolic 110–128; BP diastolic 52–65; PULSE 67–75; RESP 16–99; TEMP 36.4–37.4; O2SAT 93–98
[2024-11-28] MEDS: PIPER/TAZO 3.375 GM PREMIX 3.375 GM/50 ML BAG IV (05:09)
--- NOTE | 2024-11-28 05:28 | PC.NURSE ---
urine sample collected
[2024-11-28 06:07] LABS: Basophils # (Auto) 0.1 Thou/mm3 (0.0-0.2); Basophils % (Auto) 0 % (0-2.5); Eosinophils # (Auto) 0.2 Thou/mm3 (0.0-0.5); Eosinophils % (Auto) 1 % (0-10); Hematocrit 22.7 % (36.0-46.0); Immature Granulocytes Auto 0.15 Thou/mm3 (0.00-0.00); Lymphocytes # (Auto) 2.0 Thou/mm3 (1.0-4.8); Lymphocytes % (Auto) 10 % (10-50); Mean Corpuscular HGB Conc 32.6 g/dl (31.0-37.0); Mean Corpuscular Hemoglobin 33.0 pg (25.0-35.0); Mean Corpuscular Volume 101 fL (80-100); Monocytes # (Auto) 0.5 Thou/mm3 (0.0-0.8); Monocytes % (Auto) 2 % (0-12); Neutrophils # (Auto) 17.3 Thou/mm3 (1.8-7.7); Neutrophils % (Auto) 85 % (37-80); Nucleated Red Blood Cell # 0.00 Thou/mm3 (0.00-0.00); Nucleated Red Blood Cell % 0 /100 WBC (0); Platelet Count 247 Thou/mm3 (140-440); RDW Standard Deviation 67.0 fL (36.4-46.3); Red Blood Count 2.24 Miln/mm3 (4.00-5.20); White Blood Count 20.2 Thou/mm3 (3.6-11.0)
[2024-11-28 06:08] LABS: Hemoglobin 7.4 g/dL (12.0-16.0)
[2024-11-28 06:09] LABS: Chloride,Urine Random 28.7 mMol/L (55.0-125.0); Potassium,Urine Random < 10 mMol/L (12-62); Sodium,Urine Random 35.2 mMol/L (20.0-110.0)
[2024-11-28 06:35] LABS: Alanine Aminotransferase < 7 U/L (10-49); Albumin, Serum 2.7 gm/dL (3.4-4.8); Albumin/Globulin Ratio 1.2 (1.2-2.2); Alkaline Phosphatase 88 U/L (46-116); Anion Gap 10 (7-16); Aspartate Amino Transferase 13 U/L (0-34); BUN/Creatinine Ratio 16 Ratio (12-20); Bilirubin,Total 0.6 mg/dL (0.3-1.2); Blood Urea Nitrogen 23 mg/dL (9-23); Calcium 7.7 mg/dL (8.3-10.6); Calcium (Corrected) 8.7 mg/dL (8.5-10.1); Carbon Dioxide 15.1 mMol/L (20.0-31.0); Chloride 111 mMol/L (98-107); Creatinine (Component) 1.4 mg/dL (0.6-1.3); Estimated Creatinine Clearance 24.9 mL/min (>60); Globulin 2.3 gm/dL (2.3-3.5); Glucose 132 mg/dL (74-106); Magnesium 2.6 mg/dL (1.6-2.6); Osmolality,Calculated 277 (275-295); Potassium 4.4 mMol/L (3.4-5.1); Sodium 136 mMol/L (136-145); Total Protein 5.0 gm/dL (5.7-8.2); eGFR 38 See Note
--- NOTE | 2024-11-28 08:54 | PD.RESPRO ---
Documentation for date of: 11/28/24 Subjective Subjective Interval history: No acute events overnight. No new complaints. Nixon draining well, about 300 cc of light yellow urine in bag. No visible blood. Ordered CT abdomen pelvis with contrast to rule out possible fistula despite slight increase in creatinine and history of CKD, will follow up with results. Will rehydrate with IV fluids before and after procedure, encouraged oral rehydration. Continue to monitor renal function. Pending recommendations from Dr. Anton. WBC improved. Consulted infectious disease Dr Velez, who recommended discontinuing IV Zosyn and starting fosfomycin 3 g today. Recommend discharging with Levaquin to 50 mg for 7 days in setting of CKD. Had goals of care discussion with family regarding code status in light of patient's metastatic cancer and old age. Family was not ready to make any changes at this time but will have discussion with patient. Exam Vital Signs Temp Pulse Resp BP Pulse Ox O2 Del Method 99.4 F 70 18 118/52 L 93 L Room Air 11/28/24 08:00 11/28/24 08:00 11/28/24 08:00 11/28/24 08:00 11/28/24 08:00 11/28/24 08:00 Narrative Exam Physical Exam General: Awake and in no acute distress. Conversational. Cachectic. HEENT: Normocephalic, atraumatic, mucous membranes moist. Heart: Regular rate and rhythm, normal S1 and S2, no murmurs appreciated. Lungs: CTAB. Abdomen: Soft, nondistended, nontender, positive bowel sounds. No guarding or rebound tenderness. LLQ colostomy bag with some watery light brown stool, no visible blood. Site clean and intact. : Nixon in place, draining 300 mL light yellow urine. Neurologic: Alert and oriented x3, no gross neurological deficit, and patient able to move all 4 extremities. Extremities: No edema. Skin: No rash or ecchymoses. Objective Labs 11/29/24 06:21 11/29/24 06:21 Labs: Laboratory Results - last 24 hr 11/27/24 11/28/24 11/28/24 18:00 04:45 05:00 WBC 20.2 H D RBC 2.24 L Hgb 7.4 L Hct 22.7 L MCV 101 H MCH 33.0 MCHC 32.6 RDW Std Deviation 67.0 H Plt Count 247 D Neut % (Auto) 85 H Lymph % (Auto) 10 [place] % (Auto) 2 Eos % (Auto) 1 Baso % (Auto) 0 Neut # (Auto) 17.3 H Lymph # (Auto) 2.0 [place] # (Auto) 0.5 Eos # (Auto) 0.2 Baso # (Auto) 0.1 Immature Gran # (Auto) 0.15 H Absolute Nucleated RBC 0.00 Immature Gran % 1 H Nucleated RBC % 0 Sodium 136 Potassium 4.4 Chloride 111 H Carbon Dioxide 15.1 L Anion Gap 10 BUN 23 Creatinine 1.4 H Estim Creat Clear Calc 24.9 L eGFR 38 L BUN/Creatinine Ratio 16 Glucose 132 H Calculated Osmolality 277 Calcium 7.7 L Corrected Calcium 8.7 Magnesium 2.6 Total Bilirubin 0.6 AST 13 ALT < 7 L Alkaline Phosphatase 88 Ammonia 13 Total Protein 5.0 L Albumin 2.7 L Globulin 2.3 Albumin/Globulin Ratio 1.2 Ur Random Sodium 35.2 Ur Random Potassium < 10 L Ur Random Chloride 28.7 L ABG Interpretation ABG results: 11/26/24 11:08 ABG pH 7.38 ABG pCO2 25 L ABG pO2 85 ABG HCO3 15 L ABG O2 Saturation 97 ABG Base Excess -10 L Quality Measures Quality Measures sepsis Current suspected stage: ruled out Possible source: pulmonary Blood cultures ordered: completed in ED Antibiotic ordered: Yes Advance care planning discussed with:: patient Assessment & Plan Assessment Current Active Medications: Generic Name Dose Route Start Last Admin Trade Name Freq PRN Reason Stop Dose Admin Acetaminophen 650 mg 11/26/24 13:30 11/26/24 19:41 Acetaminophen 325 Mg Tablet PO 12/26/24 13:29 650 mg Q6H PRN Administration Fever >101.5 and pain 1-3 Hydrocodone Bitart/Acetaminophen 1 tab 11/27/24 18:43 Hydrocodone/Apap 5/325 Tablet PO 12/02/24 18:42 Q8HR PRN Pain 4-10 Carvedilol 3.125 mg 11/26/24 21:00 11/27/24 20:43 Carvedilol 3.125 Mg Tablet PO 12/26/24 20:59 3.125 mg BID MARION Administration Capecitabine 500 Mg 0 ea 11/26/24 21:00 11/27/24 20:43 Tablet PO 12/03/24 21:01 3 tablet BID MARION Administration Dextrose 25 ml 11/26/24 15:47 Dextrose 50%-Water Inj 50 Ml Syringe IV 12/26/24 15:46 Q15MIN PRN BG 50-70 responsive npo pt Dextrose 50 ml 11/26/24 15:47 Dextrose 50%-Water Inj 50 Ml Syringe IV 12/26/24 15:46 Q15MIN PRN BG <50 OR BG <70 & pt unresponsive Gabapentin 300 mg 11/27/24 09:00 11/27/24 09:57 Gabapentin 300 Mg Capsule PO 12/27/24 08:59 300 mg DAILY MARION Administration Glucagon 1 mg 11/26/24 15:47 Glucagon Inj 1 Mg Vial IM Q15MIN PRN BG <70, and no IV access Heparin Sodium (Porcine) 5,000 unit 11/26/24 14:00 11/27/24 14:36 Heparin Sod Inj 5000 Unit/Ml Vial SC 12/10/24 13:59 5,000 unit On Hold: 11/27/24 17:48 Q8HR MARION Administration Piperacillin/Tazobactam/Dextrose 3.375 gm in 50 mls @ 12.5 mls/hr 11/26/24 22:00 11/28/24 05:09 Zosyn IV 12/03/24 21:59 12.5 mls/hr Q8HR MARION Administration Protocol Azithromycin 500 mg/ Sodium 250 mls @ 250 mls/hr 11/27/24 09:00 11/27/24 10:57 Chloride IV 12/04/24 08:59 Infused QDAY MARION Infusion Insulin Human Lispro 0 unit 11/26/24 17:00 11/28/24 07:59 Insulin Lispro (Admelog) 1 Unit/0.01 Ml Unit SC 12/26/24 16:59 Not Given ACHS MARION Protocol Nifedipine 30 mg 11/26/24 21:00 11/27/24 20:42 Nifedipine Xl 30 Mg Tabcr PO 12/26/24 20:59 30 mg HS MARION Administration Plan Patient is an 79-year-old female with past medical history of metastatic colon cancer s/p chemoradiation (CAPOX chemo), 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 #Urinary retention #Hematuria #C/f pelvic abscess Complaining of urinary retention, improves when sitting up in certain position. Bladder scan showed 800mL retained urine, inserted Nixon cathether with 200-300 mL of purulent output. Reinserted Nixon catheter and drained approximately 700 mL red tinged urine with clots. Follow up bladder US 11/27 showed no mass or calculi. Pelvic MRI 10/24 showed intact urinary bladder with no free fluid in pelvis. Plan: - Ordered CT A/P with contrast to rule out possible fistula - Nixon catheter in place - Consulted urologist Dr. Anton, appreciate recommendations - CTM urinary output - Hold anticoagulation #Complicated UTI #Hx ESBL UTI #Weakness Presented with weakness s/p fall yesterday. Denies LOC, dizziness, lightheadedness, or head trauma. Endorses dysuria, denies urinary frequency or hematuria. Does not meet sepsis criteria (only WBC 26 and suspected source of infection) UA is positive for nitrates and leukocyte esterase, 3+ blood, RBC 68, WBC 91, bacteria rare. Previously treated for UTI on previous admission 10/22-10/24, was treated with IV CFX and discharged with Augmentin. Urine culture grew ESBL. S/p IV CFX x1 in ED. Urine culture 11/26 grew ESBL sensitive to Zosyn Plan: - Consulted ID Dr. Velez, appreciate recommendations: - Discontinue IV Zosyn (11/26-11/28) - Start fosfomycin 3 g x1 (11/28) - Discharge with Levaquin 250 mg for 7 days in setting of CKD - CTM WBC - PT consulted - has adequate family support, refused home health PT #Metastatic colon cancer, on chemotherapy #Pulmonary nodular metastatic disease #Left base PNA? #S/p colectomy with colostomy (08/2023) Follows oncologist Dr. Lisa. Currently on chemotherapy treatment with capecitabine 1000 mg BID, last seen on 11/02/24 and was considering IV chemotherapy at the time. Chest CT shows progression of pulmonary nodular metastatic disease and left base PNA. - Continue capecitabine BID - Azithromycin (11/27- - Abx as above - Oxygen prn #Acute on chronic non anion gap metabolic acidosis, improving Possibly renal tubular acidosis (Type 1 vs 2) versus intermittent diarrhea (which patient has every other week per family) via colostomy bag. Serum bicarb 14.6, baseline 17.5-19. ABG pH 7.38, pCO2 25, HCO3 15. Sodium 132, potassium WNL. Urine pH previously 8.0 on 10/22, now 6.0. 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 Does not take bicarb supplement at home. S/p 1L NS bolus in ED. Plan: - CTM #Chronic anemia, normocytic Previously admitted 10/22-10/24 for acute on chronic anemia, likely multifactorial in setting of post menopausal bleeding, metastatic colon cancer, and STONE. Denies hematuria or bleeding anywhere at this time. Iron panel 10/23 shows low iron and ferritin, indicative of STONE, also possibly ACD in setting of CKD. Medications include ferrous sulfate 325mg every other day. Plan: - Hold iron in setting of active infection - CTM Hgb - Transfuse if Hgb <7 #IDDM2 with neuropathy Home meds include insulin glargine 20 units nightly and gabapentin 300 mg daily. A1c 11/26 5.6. - SSI - Continue gabapetin 300 mg daily #HTN #HLD #CKD Lipid panel 11/27: trig 155, cholesterol 90, LDL 43, HDL 16. Baseline creatinine 1.2-1.7. - Continue home carvedilol and nifedipine - CTM renal function Health Maintenance Disposition: med tele DVT prophylaxis: SCDs GI prophylaxis: none needed Diet: carb consistent CODE STATUS: FULL Patient plan of care was discussed with the resident, Dr. Mills, and attending physician, Dr. Mann. Radha Clayton, PGY-1 Attending Provider Attestation/Addendum I have examined the patient, reviewed labs and imaging findings, discussed the case with the resident(s), and reviewed entered orders. 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 Patient seen at bedside. No acute overnight events. Patient admitted for acute complicated urinary tract infection. Patient has hx of ESBL. Ur cx grew ESBL E coli. . Significant leukocytosis still present and continue to monitor for improvement while treating underlying infection. Trend hematology panel daily. Infectious disease consulted for ESBL and adjusting abx regimen as needed. Patient has acute on chronic metabolic acidosis with respiratory compensation. Chronic acidosis most likely related to underlying malignancy. Currently patient is well compensated with normal pH and we will monitor for now. Patient has underlying CKD which appears at baseline. Continue to avoid nephrotoxic agents and renally dose medications. Continue home antihypertensives as tolerated. 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 Start insulin sliding scale with Accu-Cheks. Target blood sugar 140-180 while hospitalized. Patient was also found to have acute urinary retention and hematuria. Unclear if fistulous track has developed given patient's history of colon cancer and fecal color of urine. Patient will be seen urology today for acute urinary retention and hematuria. Patient updated on the plan and in agreement. All questions answered to satisfaction. Please see residents note for additional details and management. Dr. Mackenzie MD
--- NOTE | 2024-11-28 09:12 | PD.RESCONSUL ---
HPI Data of Consult Requesting Physician: Isaiah Mann MD Admitting Provider: Isaiah Mann MD Attending Provider: Isaiah Mann MD Primary Care Provider: Radha Cristobal PA-C Consult Narrative History of present illness: The patient is an 79-year-old female with significant past medical history of CKD, insulin-dependent diabetes mellitus type 2 with neuropathy, hypertension, hyperlipidemia, anemia, history of metastatic colon cancer s/p chemoradiation; CAPOX chemo, colectomy with colostomy on 08/2024 presented on 11/26/2024 with chief complaint of generalized weakness and ground-level fall. The patient also complained of dysuria, and subjective fever. During my evaluation, her vitals were stable, and labs revealed white count 20.2, hemoglobin 7.4, MCV 101, chemistry panel was significant for creatinine 1.4, blood sugar 132, UA on presentation was positive for UTI with leukocyte esterase positive, nitrite positive, RBC 68, WBC 91. White count has been trending down in CBC. The patient was placed on Zosyn. However, patient had ESBL UTI on 10/22/2024 with Klebsiella oxytocin. Recent urine culture from 11/26/2024 revealed UTI, with kleb. not esbl. PMH: As mentioned above Surgical history: Colectomy with colostomy on 08/30/2023, cholecystectomy 2019 Family history: Father had diabetes, no family history of cancer Social history: Denies smoking ever, current alcohol use, or any recreational drug use Medications: Capecitabine 1000 mg twice daily, carvedilol 3.125 mg twice daily, ferrous sulfate every other day, gabapentin 300 mg daily, insulin glargine 20 units daily at night, lisinopril 40 mg daily, nifedipine 30 mg daily at night Allergies: No known drug allergies Infectious disease consultation was done for management of ESBL UTI. cc:: cc: Isaiah Mann MD Review of Systems Review of Systems Systems Reviewed: All systems reviewed, normal except as documented Exam Vital Signs Temp Pulse Resp BP Pulse Ox O2 Del Method 99.4 F 70 18 118/52 L 93 L Room Air 11/28/24 08:00 11/28/24 08:00 11/28/24 08:00 11/28/24 08:00 11/28/24 08:00 11/28/24 08:00 Narrative Exam General: No acute distress, Alert and Oriented x 3 HEENT: Moist mucous membranes, oropharynx clear Neck: Supple, No masses, No JVD CVS: S1S2 Regular rate and rhythm, No murmurs, rubs or gallops Lungs: Clear to auscultation with no accessory use, no wheeze no rhonchi Abd: Soft, NT/ND, +BS, no organomegaly, left lower quadrant colostomy bag noted Ext: No edema, warm and well perfused Skin: No rash Psych: Appropriate mood and affect Results Labs 12/01/24 05:04 12/01/24 05:04 Labs: Short CBC 11/28/24 Range/Units 04:45 WBC 20.2 H D (3.6-11.0) Thou/mm3 Hgb 7.4 L (12.0-16.0) g/dL Hct 22.7 L (36.0-46.0) % Plt Count 247 D (140-440) Thou/mm3 BMP 11/28/24 04:45 Sodium 136 Potassium 4.4 Chloride 111 H Carbon Dioxide 15.1 L BUN 23 Creatinine 1.4 H Glucose 132 H Calcium 7.7 L Liver Function 11/28/24 Range/Units 04:45 Total Bilirubin 0.6 (0.3-1.2) mg/dL AST 13 (0-34) U/L ALT < 7 L (10-49) U/L Alkaline Phosphatase 88 (46-116) U/L Albumin 2.7 L (3.4-4.8) gm/dL ABG Interpretation ABG results: 11/26/24 11:08 ABG pH 7.38 ABG pCO2 25 L ABG pO2 85 ABG HCO3 15 L ABG O2 Saturation 97 ABG Base Excess -10 L Impressions Impression: seen with resident. see my notes for details as his assessment is blank Quality Measures Quality Measures sepsis Current suspected stage: ruled out Possible source: pulmonary Blood cultures ordered: completed in ED Antibiotic ordered: Yes Advance care planning discussed with:: patient Medications Home Medications and Allergies Home Medications ?Medication ?Instructions ?Recorded ?Confirmed ?Type capecitabine 500 mg tablet 1,000 mg PO BID 10/22/24 11/26/24 History carvedilol 3.125 mg tablet 3.125 mg PO BID 10/22/24 11/26/24 History gabapentin 300 mg capsule 300 mg PO Q12H 10/22/24 11/28/24 History lisinopril 40 mg tablet 40 mg PO DAILY 10/22/24 11/26/24 History Held on 11/26/24. Instructions: Doctor's Order nifedipine 30 mg tablet,extended 30 mg PO HS 10/22/24 11/26/24 History release insulin glargine 100 unit/mL (3 20 unit subcut QPM 11/26/24 11/26/24 History mL) subcutaneous pen (Basaglar KwikPen U-100 Insulin) Allergies Allergy/AdvReac Type Severity Reaction Status Date / Time No Known Allergies Allergy Verified 11/18/24 08:23 Visit Medications Acetaminophen (Acetaminophen 325 Mg Tablet) 650 mg PO Q6H PRN PRN Reason: Fever >101.5 and pain 1-3 Stop: 12/26/24 13:29 Last Admin: 11/26/24 19:41 Dose: 650 mg Hydrocodone Bitart/Acetaminophen (Hydrocodone/Apap 5/325 Tablet) 1 tab PO Q8HR PRN PRN Reason: Pain 4-10 Stop: 12/02/24 18:42 Carvedilol (Carvedilol 3.125 Mg Tablet) 3.125 mg PO BID [facility] Stop: 12/26/24 20:59 Last Admin: 11/27/24 20:43 Dose: 3.125 mg Capecitabine 500 Mg (Tablet) 0 ea PO BID [facility] Stop: 12/03/24 21:01 Last Admin: 11/27/24 20:43 Dose: 3 tablet Dextrose (Dextrose 50%-Water Inj 50 Ml Syringe) 25 ml IV Q15MIN PRN PRN Reason: BG 50-70 responsive npo pt Stop: 12/26/24 15:46 Dextrose (Dextrose 50%-Water Inj 50 Ml Syringe) 50 ml IV Q15MIN PRN PRN Reason: BG <50 OR BG <70 & pt unresponsive Stop: 12/26/24 15:46 Gabapentin (Gabapentin 300 Mg Capsule) 300 mg PO DAILY [facility] Stop: 12/27/24 08:59 Last Admin: 11/27/24 09:57 Dose: 300 mg Glucagon (Glucagon Inj 1 Mg Vial) 1 mg IM Q15MIN PRN PRN Reason: BG <70, and no IV access Heparin Sodium (Porcine) (Heparin Sod Inj 5000 Unit/Ml Vial) 5,000 unit SC Q8HR MARION On Hold: 11/27/24 17:48 Stop: 12/10/24 13:59 Last Admin: 11/27/24 14:36 Dose: 5,000 unit Piperacillin/Tazobactam/Dextrose (Zosyn) 3.375 gm in 50 mls @ 12.5 mls/hr IV Q8HR MARION; Protocol Stop: 12/03/24 21:59 Last Admin: 11/28/24 05:09 Dose: 12.5 mls/hr Azithromycin 500 mg/ Sodium (Chloride) 250 mls @ 250 mls/hr IV QDAY MARION Stop: 12/04/24 08:59 Last Infusion: 11/27/24 10:57 Dose: Infused Insulin Human Lispro (Insulin Lispro (Admelog) 1 Unit/0.01 Ml Unit) 0 unit SC ACHS MARION; Protocol Stop: 12/26/24 16:59 Last Admin: 11/28/24 07:59 Dose: Not Given Nifedipine (Nifedipine Xl 30 Mg Tabcr) 30 mg PO HS MARION Stop: 12/26/24 20:59 Last Admin: 11/27/24 20:42 Dose: 30 mg Discontinued Medications Hydrocodone Bitart/Acetaminophen (Hydrocodone/Apap 5/325 Tablet) 1 tab PO X1 ONE Stop: 11/26/24 10:15 Last Admin: 11/26/24 10:23 Dose: 1 tab Azithromycin 500 mg/ Sodium (Chloride) 250 mls @ 250 mls/hr IV X1 ONE Stop: 11/26/24 10:09 Last Infusion: 11/26/24 11:10 Dose: Infused Ceftriaxone Sodium/Dextrose (Rocephin/D5w 1gm Iv Premix) 1 gm in 50 mls @ 100 mls/hr IV X1 ONE Stop: 11/26/24 09:39 Last Infusion: 11/26/24 10:04 Dose: Infused Sodium Chloride (Ns) 1,000 mls @ 999 mls/hr IV .Q1H1M ONE Stop: 11/26/24 10:36 Last Infusion: 11/26/24 11:15 Dose: Infused Ceftriaxone Sodium/Dextrose (Rocephin/D5w 1gm Iv Premix) 1 gm in 50 mls @ 100 mls/hr IV QDAY MARION Stop: 12/04/24 08:59 Piperacillin/Tazobactam/Dextrose (Zosyn) 3.375 gm in 50 mls @ 100 mls/hr IV X1 ONE; Protocol Stop: 11/26/24 14:29 Last Admin: 11/26/24 15:14 Dose: 100 mls/hr Magnesium Sulfate (Magnesium Sulfate Ivpb) 4 gm in 50 mls @ 12.5 mls/hr IV X1 ONE Stop: 11/26/24 19:45 Last Admin: 11/26/24 17:40 Dose: 12.5 mls/hr Azithromycin 500 mg/ Sodium (Chloride) 250 mls @ 250 mls/hr IV QDAY MARION Stop: 12/04/24 07:58 Last Admin: 11/27/24 14:09 Dose: Not Given Lactated Ringer's (Lactated Ringers) 1,000 mls @ 75 mls/hr IV .[id number] ONE Stop: 11/27/24 22:08 Last Admin: 11/27/24 09:56 Dose: 75 mls/hr Assessment & Plan Plan The patient is an 79-year-old female with significant past medical history of CKD, insulin-dependent diabetes mellitus type 2 with neuropathy, hypertension, hyperlipidemia, anemia, history of metastatic colon cancer s/p chemoradiation; CAPOX chemo, colectomy with colostomy on 08/2024 presented on 11/26/2024 with chief complaint of generalized weakness and ground-level fall. The patient also complained of dysuria, and subjective fever. Infectious disease consultation was done for management of ESBL UTI. #Complicated ESBL UTI Patient presented with dysuria and subjective fever The patient had ESBL UTI on 10/22/2024 with Klebsiella Recent urine culture on 11/26/2024 revealed ESBL UTI with E. coli that was sensitive to Zosyn The patient was started on Zosyn during admission -Fosfomycin 3 g single dose dose given in the setting of CKD -Discontinued Zosyn -Recommended against Bactrim #Insulin-dependent diabetes mellitus type 2 #Neuropathy #Hypertension #Hyperlipidemia #Anemia #History of metastatic colon cancer s/p chemoradiation #S/p colectomy with colostomy #CKD - Management deferred to primary hospitalist team Thank you for your opportunity to participate in this patient care. Will continue to follow-up in this patient management. The patient's management plan was discussed with my attending physician MD Gustavo Whitmore MD, PGY3
[2024-11-28] MEDS: GABAPENTIN 300 MG CAPSULE PO (09:13)
[2024-11-28] MEDS: AZITHROMYCIN INJ 500 MG in SODIUM CHLORIDE 0.9% 250 ML 250 ML 250 MG IV (09:14)
[2024-11-28] MEDS: CAPECITABINE 500 MG PO ×2 (09:14→20:53)
--- NOTE | 2024-11-28 09:24 | ESPR_ITS ---
Subjective Subjective Interval history: esbl uti , no noted fever here. subjective fever at most. name of home med not known clearly, Exam Vital Signs Temp Pulse Resp BP Pulse Ox O2 Del Method 99.4 F 70 18 118/52 L 93 L Room Air 11/28/24 08:00 11/28/24 09:13 11/28/24 08:00 11/28/24 09:13 11/28/24 08:00 11/28/24 08:00 Narrative Exam benign. LLQ ostomy noted. Objective - Internal Medicine Labs 11/28/24 04:45 11/28/24 04:45 Labs: Laboratory Results - last 24 hr 11/27/24 11/28/24 11/28/24 18:00 04:45 05:00 WBC 20.2 H D RBC 2.24 L Hgb 7.4 L Hct 22.7 L MCV 101 H MCH 33.0 MCHC 32.6 RDW Std Deviation 67.0 H Plt Count 247 D Neut % (Auto) 85 H Lymph % (Auto) 10 [place] % (Auto) 2 Eos % (Auto) 1 Baso % (Auto) 0 Neut # (Auto) 17.3 H Lymph # (Auto) 2.0 [place] # (Auto) 0.5 Eos # (Auto) 0.2 Baso # (Auto) 0.1 Immature Gran # (Auto) 0.15 H Absolute Nucleated RBC 0.00 Immature Gran % 1 H Nucleated RBC % 0 Sodium 136 Potassium 4.4 Chloride 111 H Carbon Dioxide 15.1 L Anion Gap 10 BUN 23 Creatinine 1.4 H Estim Creat Clear Calc 24.9 L eGFR 38 L BUN/Creatinine Ratio 16 Glucose 132 H Calculated Osmolality 277 Calcium 7.7 L Corrected Calcium 8.7 Magnesium 2.6 Total Bilirubin 0.6 AST 13 ALT < 7 L Alkaline Phosphatase 88 Ammonia 13 Total Protein 5.0 L Albumin 2.7 L Globulin 2.3 Albumin/Globulin Ratio 1.2 Ur Random Sodium 35.2 Ur Random Potassium < 10 L Ur Random Chloride 28.7 L ABG Interpretation ABG results: 11/26/24 11:08 ABG pH 7.38 ABG pCO2 25 L ABG pO2 85 ABG HCO3 15 L ABG O2 Saturation 97 ABG Base Excess -10 L Assessment & Plan A&P Narrative uti w/o bacteremia no pneumonia metastatic CA in a full code at 79 yoa azithro po is same as iv and 3d at 500/day is equivant to a z pack. so changed order fosfomycin likely ok for urine and even with ckd, a one time dose is ok. macrobid problematic as rx is longer home today ok with me ok to have discussion about goals of care with her and any other decision makers as she is 79 yoa and has CA am too can see again sunday if still here. no objection to home today or tomorrow. Time Spent With Patient Time: Total time spent is greater than 50% in coordination of care (as documented) at patient's floor/unit and/or counseling patient:
[2024-11-28] MEDS: FOSFOMYCIN PWD 3 GM PACKET (NON-FORMULARY) PO (10:01)
--- NOTE | 2024-11-28 10:20 | ESCONSULT_ITS ---
RE: NIRAV CAGLE : 1945 DATE OF CONSULTATION: 11/28/2024 REFERRING PHYSICIAN: Dr. Mann REASON FOR CONSULTATION: Extended-spectrum beta-lactamases in the urine. HISTORY OF PRESENT ILLNESS: The patient has a small quantity of ESBL in the urine, had ESBL previously on a UA done before. She has no prior fosfomycin exposure history at least at our facility. She denies any prior surgery, but there is a little bit of language barrier and she asked for an land classifier, so I abandoned the visit fter that request. PAST MEDICAL HISTORY: Medical problems include underlying cancer. PAST SURGICAL HISTORY: Includes prior surgery for cancer about two years ago.a diverting colostomy LLQ ALLERGIES: NO KNOWN ALLERGIES. IMMUNIZATIONS: Last tetanus is not known. shee does not take a flu shot every year. she has had COVID vaccinatio an uncertain number of times but does not recall any pneumococcal vaccine with certainty. FAMILY HISTORY: Unknown. SOCIAL HISTORY: Similarly unknown. PHYSICAL EXAMINATION: Her exam is benign. She has a left lower quadrant ostomy. She notes some urinary symptoms. The resident says she had complained of some fevers, but there is none noted in the record. The patient has not been febrile here. Her quantity of bacteria in the urine is relatively low as well, but there is pyuria. RECOMMENDATIONS: I am going to give her fosfomycin 3 g once. With the renal insufficiency that is ok. repeated doses are problematic with renal insufficiency though. Same for Macrobid and other antibiotics. We could give her Levaquin based on sensitivities, but the dosage has to be reduced. 250 mg daily of Levaquin would be fine. If you want to give her that for home, it would be fine for 7 days. but the single dose of fosfomycin is likely sufficient. I also changed the azithro to po as that is the same as iv and 3d is the same as a z pack. but if you prefer a quinolone, and despite a neg cxr (to my eye) other than the apparent metastatic CA, quinolones are also good for atypicals . pt has a neg exam so you are mostly treating the radiology report at this point in time DT: 09:43:05 TT: 10:18:00 Ref: [id number] - TID: [id number] MTDD
[2024-11-28] MEDS: INSULIN LISPRO (AdmeLOG) 1 UNIT/0.01 ML UNIT SC ×3 (12:00→20:54)
--- NOTE | 2024-11-28 13:08 | XR_ITS ---
Examination: CT abdomen with intravenous contrast CT pelvis with intravenous contrast 2-D coronal reconstructions 2-D sagittal reconstructions Date and time of exam:November 28, 2024 at 1550 hrs. Indications: Abdominal pain and distention this week, history pulmonary nodular metastatic disease on CT chest abdomen pelvis July 10, 2024. CTDI: vol (mGy) 7.63 DLP: (mGycm) 450 Technique: Multiple axial sections of the abdomen and pelvis have been obtained. 64 slice high-resolution scanner used. 3 mm axial sections have been obtained, post intravenous injection 30 cc [id number] 2-D sagittal, coronal reconstructions obtained. Low dose protocols were performed. One or more of the following dose reduction techniques were used; automated exposure control, adjustment of the mA and/or KV according to patient size, use of iterative reconstruction technique. Findings: Progression of pulmonary metastatic disease compared with July 10, 2024, multiple enlarging and new pulmonary nodules in the lung quinones Small pleural effusions No focal liver lesions Spleen is not enlarged Aorta is normal in size Subcentimeter periaortic lymphadenopathy is again depicted Fluid distended colon Left ileostomy Wall thickening of small bowel loops enteritis pattern Left hip arthroplasty degrades scan image quality but in the pelvis anterior to the uterus is a fluid containing structure with air densities, likely abscess which is incompletely visualized, measuring at least 8.3 cm and mediolateral dimension and at least 5.0 cm in anterior posterior dimension Marked abnormal thickening of the uterine endometrium, 38 mm Large rectosigmoid tumor mass extending to the presacral space and the posterior margin of the uterus Impression: Progression of pulmonary nodular metastatic disease Persistent abdominal lymphadenopathy Small bowel enteritis pattern Marked abnormal thickening of the uterine endometrium Large rectosigmoid tumor mass extending to the presacral region 40 visualized because of artifact from the hip arthroplasty Partial visualization fluid and air-containing structure in the pelvis at least 8.3 x 5.0 cm consistent with abscess This is amenable to CT-guided percutaneous catheter drainage
[2024-11-28] MEDS: SODIUM CHLORIDE 0.9% 250 ML 250 ML 999 ML IV ×2 (13:26→14:57)
--- NOTE | 2024-11-28 16:28 | UCCONSULT_ITS ---
RE: NIRAV CAGLE : 1945 DATE OF CONSULTATION: 11/28/2024 CHIEF COMPLAINT: 1. Urinary retention status post placement of the catheter. 2. Overflow incontinence. 3. Chronic kidney disease. HISTORY OF PRESENT ILLNESS: This is an 79-year-old female. She has past medical history of metastatic colon cancer status post colectomy and colostomy in 2023, chronic kidney disease. COMORBID CONDITIONS: 1. Insulin-dependent diabetes mellitus. 2. Hypertension. 3. Hyperlipidemia. HISTORY OF PRESENT ILLNESS: This is an 79-year-old female. She was admitted in the hospital through the emergency room. This patient had complained of generalized weakness and episode of fall without loss of consciousness. The patient has a history of dysuria prior to coming to the emergency room. She has difficulty in urinating and it was dribbling and there is no history of gross hematuria. She has placement of Nixon catheter with a larger residual urine. The patient also had urinary tract infection. For her metastatic colon cancer, the patient is receiving chemoradiation (CAPOX chemo), colectomy and colostomy. She also has diabetic neuropathy. Past medical history, family history, review of the system, personal history, please refer to the patient history form dated 11/26/2024, it is in HPI in EMR. On examination, this is an 79-year-old Kosovan-speaking female. Her 2 daughters were present there. Both are Kosovan-speaking. I had an RN with me who were the woodworking shop laborer. PHYSICAL EXAMINATION: General: Condition is satisfactory. Awake, not in acute distress. Cachectic. HEENT: Normocephalic and atraumatic. Heart: Regular rate and rhythm. Chest: Symmetrical. Abdomen: Soft, nondistended. Liver, spleen, kidney not palpable. She is status post colostomy left lower quadrant. Extremities: Reveal no edema, cyanosis or clubbing. VARIOUS LABS: WBC is 27.6, hemoglobin 8.6, HCT 25.3, BUN 25, creatinine is 1.1. She has chest CT, which showed progression of pulmonary nodule, metastatic disease, and left base pneumonia. DIAGNOSES: 1. Urinary retention could be due to metastatic colon cancer. 2. Could be a neurogenic bladder as a result of diabetes and neuropathy. PLAN: 1. Treat her urinary tract infection with antibiotics according to the its sensitivity. 2. Follow up with Dr. Lisa for chemo. 3. Leave Nixon catheter for 1 week, give her a trial of voiding if trial of voiding is not successful patient may need reinsertion of Nixon catheter. The patient may need a cystoscopic examination. All above issues were discussed with the family. Questions were answered to their satisfaction and she will also follow up with me in my office. DT: 14:15:30 TT: 16:27:00 Ref: [id number] - TID: [id number] MTDD
--- NOTE | 2024-11-28 18:28 | PC.NURSE ---
Spoke with Dr Clayton regarding removing sutures from patient's portcath on right side of chest, he said it would have to be done tomorrow.
[2024-11-28] MEDS: NIFEdipine XL 30 MG TABCR PO (20:52)
[2024-11-29] VITALS (10 sets, daily range): BP systolic 116–137; BP diastolic 59–66; PULSE 68–97; RESP 16–18; TEMP 36.1–36.8; O2SAT 92–99; BMI 25.1
[2024-11-29 06:46] LABS: Basophils # (Auto) 0.1 Thou/mm3 (0.0-0.2); Basophils % (Auto) 0 % (0-2.5); Eosinophils # (Auto) 0.2 Thou/mm3 (0.0-0.5); Eosinophils % (Auto) 1 % (0-10); Hematocrit 22.9 % (36.0-46.0); Immature Granulocytes Auto 0.14 Thou/mm3 (0.00-0.00); Lymphocytes # (Auto) 1.6 Thou/mm3 (1.0-4.8); Lymphocytes % (Auto) 9 % (10-50); Mean Corpuscular HGB Conc 33.6 g/dl (31.0-37.0); Mean Corpuscular Hemoglobin 33.3 pg (25.0-35.0); Mean Corpuscular Volume 99 fL (80-100); Monocytes # (Auto) 0.4 Thou/mm3 (0.0-0.8); Monocytes % (Auto) 2 % (0-12); Neutrophils # (Auto) 14.9 Thou/mm3 (1.8-7.7); Neutrophils % (Auto) 86 % (37-80); Nucleated Red Blood Cell # 0.00 Thou/mm3 (0.00-0.00); Nucleated Red Blood Cell % 0 /100 WBC (0); Platelet Count 306 Thou/mm3 (140-440); RDW Standard Deviation 65.0 fL (36.4-46.3); Red Blood Count 2.31 Miln/mm3 (4.00-5.20); White Blood Count 17.3 Thou/mm3 (3.6-11.0)
[2024-11-29 06:50] LABS: Hemoglobin 7.7 g/dL (12.0-16.0)
[2024-11-29 07:05] LABS: Albumin, Serum 2.8 gm/dL (3.4-4.8); Albumin/Globulin Ratio 1.2 (1.2-2.2); Alkaline Phosphatase 87 U/L (46-116); Anion Gap 10 (7-16); Aspartate Amino Transferase 11 U/L (0-34); BUN/Creatinine Ratio 14 Ratio (12-20); Bilirubin,Total 0.5 mg/dL (0.3-1.2); Blood Urea Nitrogen 20 mg/dL (9-23); Calcium 7.8 mg/dL (8.3-10.6); Calcium (Corrected) 8.8 mg/dL (8.5-10.1); Carbon Dioxide 15.6 mMol/L (20.0-31.0); Chloride 112 mMol/L (98-107); Creatinine (Component) 1.4 mg/dL (0.6-1.3); Estimated Creatinine Clearance 24.9 mL/min (>60); Globulin 2.4 gm/dL (2.3-3.5); Glucose 140 mg/dL (74-106); Magnesium 2.5 mg/dL (1.6-2.6); Osmolality,Calculated 280 (275-295); Potassium 4.2 mMol/L (3.4-5.1); Sodium 138 mMol/L (136-145); Total Protein 5.2 gm/dL (5.7-8.2); eGFR 38 See Note
[2024-11-29 07:08] LABS: Alanine Aminotransferase < 7 U/L (10-49)
[2024-11-29] MEDS: CAPECITABINE 500 MG PO ×2 (09:14→21:07)
[2024-11-29] MEDS: GABAPENTIN 300 MG CAPSULE PO ×2 (09:14→21:29)
[2024-11-29] MEDS: AZITHROMYCIN 250 MG TABLET 500 MG PO (09:14)
--- NOTE | 2024-11-29 11:19 | ESPR_ITS ---
Documentation for date of: 11/29/24 Subjective Subjective Interval history: No acute events overnight. No new complaints at this time. Nixon in place and draining well, about 400 mL dark yellow urine in bag, no clots visualized. Colostomy bag continues to drain well. Vitals are stable and patient remains afebrile. Creatinine remains elevated but stable, s/p 500 cc fluids yesterday and encouraged increased oral hydration. CT abdomen pelvis with contrast on 11/28 showed pelvic air-containing structure 8.3 x 5.0, concerning for abscess. Amendable to CT-guided drainage, family and patient were agreeable to plan. Imaging also showed progression of pulmonary nodular disease, as well as large rectosigmoid tumor mass, likely progression of patient's colon cancer. Patient and family was updated on new findings. German translation was provided by in house control officer. Consulted oncologist Dr. Lias, unclear management with chemo versus surgery at this time however patient and family are agreeable to surgery if recommended by oncology. WBC continues to downtrend, will continue treatment with oral antibiotics for UTI and complete azithromycin for suspected left base pneumonia. Bicarb level has returned to baseline, will treat with sodium bicarbonate amp as suspecting RTA. Will otherwise continue all other medical treatments. Exam Vital Signs Temp Pulse Resp BP Pulse Ox O2 Del Method 97.4 F 80 16 120/62 92 L Room Air 11/29/24 07:54 11/29/24 09:14 11/29/24 07:54 11/29/24 09:14 11/29/24 07:54 11/29/24 07:54 Narrative Exam Physical Exam General: Awake and in no acute distress. Conversational. Cachectic. HEENT: Normocephalic, atraumatic, mucous membranes moist. Heart: Regular rate and rhythm, normal S1 and S2, no murmurs appreciated. Lungs: CTAB. Abdomen: Soft, nondistended, nontender, positive bowel sounds. No guarding or rebound tenderness. LLQ colostomy bag with some watery light brown stool, no visible blood. Site clean and intact. : Nixon in place, draining well. Neurologic: Alert and oriented x3, no gross neurological deficit, and patient able to move all 4 extremities. Extremities: No edema. Skin: No rash or ecchymoses. Objective Labs 11/30/24 05:12 11/30/24 05:12 Labs: Laboratory Results - last 24 hr 11/29/24 06:21 WBC 17.3 H RBC 2.31 L Hgb 7.7 L Hct 22.9 L MCV 99 MCH 33.3 MCHC 33.6 RDW Std Deviation 65.0 H Plt Count 306 D Neut % (Auto) 86 H Lymph % (Auto) 9 L [place] % (Auto) 2 Eos % (Auto) 1 Baso % (Auto) 0 Neut # (Auto) 14.9 H Lymph # (Auto) 1.6 [place] # (Auto) 0.4 Eos # (Auto) 0.2 Baso # (Auto) 0.1 Immature Gran # (Auto) 0.14 H Absolute Nucleated RBC 0.00 Immature Gran % 1 H Nucleated RBC % 0 Sodium 138 Potassium 4.2 Chloride 112 H Carbon Dioxide 15.6 L Anion Gap 10 BUN 20 Creatinine 1.4 H Estim Creat Clear Calc 24.9 L eGFR 38 L BUN/Creatinine Ratio 14 Glucose 140 H Calculated Osmolality 280 Calcium 7.8 L Corrected Calcium 8.8 Magnesium 2.5 Total Bilirubin 0.5 AST 11 ALT < 7 L Alkaline Phosphatase 87 Total Protein 5.2 L Albumin 2.8 L Globulin 2.4 Albumin/Globulin Ratio 1.2 ABG Interpretation ABG results: 11/26/24 11:08 ABG pH 7.38 ABG pCO2 25 L ABG pO2 85 ABG HCO3 15 L ABG O2 Saturation 97 ABG Base Excess -10 L Quality Measures Quality Measures sepsis Current suspected stage: ruled out Possible source: pulmonary Blood cultures ordered: completed in ED Antibiotic ordered: Yes Advance care planning discussed with:: patient Assessment & Plan Assessment Current Active Medications: Generic Name Dose Route Start Last Admin Trade Name José Miguelq PRN Reason Stop Dose Admin Acetaminophen 650 mg 11/26/24 13:30 11/26/24 19:41 Acetaminophen 325 Mg Tablet PO 12/26/24 13:29 650 mg Q6H PRN Administration Fever >101.5 and pain 1-3 Hydrocodone Bitart/Acetaminophen 1 tab 11/27/24 18:43 Hydrocodone/Apap 5/325 Tablet PO 12/02/24 18:42 Q8HR PRN Pain 4-10 Azithromycin 500 mg 11/29/24 09:00 11/29/24 09:14 Azithromycin 250 Mg Tablet PO 11/30/24 12:00 500 mg QDAY MARION Administration Carvedilol 3.125 mg 11/26/24 21:00 11/29/24 09:14 Carvedilol 3.125 Mg Tablet PO 12/26/24 20:59 3.125 mg BID MARION Administration Capecitabine 500 Mg 0 ea 11/26/24 21:00 11/29/24 09:14 Tablet PO 12/03/24 21:01 500 tablet BID MARION Administration Dextrose 25 ml 11/26/24 15:47 Dextrose 50%-Water Inj 50 Ml Syringe IV 12/26/24 15:46 Q15MIN PRN BG 50-70 responsive npo pt Dextrose 50 ml 11/26/24 15:47 Dextrose 50%-Water Inj 50 Ml Syringe IV 12/26/24 15:46 Q15MIN PRN BG <50 OR BG <70 & pt unresponsive Gabapentin 300 mg 11/27/24 09:00 11/29/24 09:14 Gabapentin 300 Mg Capsule PO 12/27/24 08:59 300 mg DAILY MARION Administration Glucagon 1 mg 11/26/24 15:47 Glucagon Inj 1 Mg Vial IM Q15MIN PRN BG <70, and no IV access Sodium Chloride 250 mls @ 999 mls/hr 11/28/24 13:12 11/28/24 16:25 Ns IV 12/28/24 13:10 Infused .Q16M MARION Infusion Insulin Human Lispro 0 unit 11/26/24 17:00 11/29/24 07:50 Insulin Lispro (Admelog) 1 Unit/0.01 Ml Unit SC 12/26/24 16:59 Not Given ACHS [facility] Protocol Levofloxacin 250 mg 11/29/24 09:00 Levofloxacin 250 Mg Tablet PO 12/06/24 08:59 QDAY MARION Nifedipine 30 mg 11/26/24 21:00 11/28/24 20:52 Nifedipine Xl 30 Mg Tabcr PO 12/26/24 20:59 30 mg HS MARION Administration Plan Patient is an 79-year-old female with past medical history of metastatic colon cancer s/p chemoradiation (CAPOX chemo), 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 #Urinary retention #Pelvic abscess Complaining of urinary retention, improves when sitting up in certain position. Bladder scan showed 800mL retained urine, inserted Nixon cathether with 200-300 mL of purulent output. Reinserted Nixon catheter and drained approximately 700 mL red tinged urine with clots. Follow up bladder US 11/27 showed no mass or calculi. Pelvic MRI 10/24 showed intact urinary bladder with no free fluid in pelvis. CT A/P 11/29 showed pelvic air-containing structure 8.3 x 5.0, concerning for abscess. Plan: - Plan for CT guided percutaneous catheter drainage - Nixon catheter in place (11/27- - Consulted urologist Dr. Anton, appreciate recommendations: d/c Nixon in 1 week, attempt voiding trials s/p abscess drainage - CTM urinary output - Hold anticoagulation #ESBL UTI, complicated Presented with weakness s/p fall yesterday. Denies LOC, dizziness, lightheadedness, or head trauma. Endorses dysuria, denies urinary frequency or hematuria. Does not meet sepsis criteria (only WBC 26 and suspected source of infection) UA is positive for nitrates and leukocyte esterase, 3+ blood, RBC 68, WBC 91, bacteria rare. Previously treated for UTI on previous admission 10/22-10/24, was treated with IV CFX and discharged with Augmentin. Urine culture grew ESBL. S/p IV CFX x1 in ED. Urine culture 11/26 grew ESBL sensitive to Zosyn. S/p IV Zosyn (11/26-11/28) Plan: - Consulted ID Dr. 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 Follows oncologist Dr. Lisa. Currently on chemotherapy treatment with capecitabine 1000 mg BID, last seen on 11/02/24 and was considering IV chemotherapy at the time. Chest CT shows progression of pulmonary nodular metastatic disease and left base PNA. CT A/P 11/29 showes progression of pulmonary nodular disease, as well as large rectosigmoid tumor mass extending to the presacral region with persistent abdominal lymphadenopathy and small bowel enteritis pattern. Noted marked abnormal thickening of urine endometrium. Plan: - Capecitabine BID - Will consult oncologist Dr. Lisa, appreciate recommendations - Azithromycin (11/27-11/30) - Abx as above - Oxygen prn #Acute on chronic non anion gap metabolic acidosis, improving Possibly renal tubular acidosis (Type 1 vs 2) versus intermittent diarrhea (which patient has every other week per family) via colostomy bag. Serum bicarb 14.6, baseline 17.5-19. ABG pH 7.38, pCO2 25, HCO3 15. Sodium 132, potassium WNL. Urine pH previously 8.0 on 10/22, now 6.0. 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 Does not take bicarb supplement at home. S/p 1L NS bolus in ED. Plan: - Sodium bicarb 50 mEq x1 - Follow up urine calcium - CTM labs #Chronic anemia, normocytic/borderline macrocytic Previously admitted 10/22-10/24 for acute on chronic anemia, likely multifactorial in setting of post menopausal bleeding, metastatic colon cancer, and STONE. Denies hematuria or bleeding anywhere at this time. Iron panel 10/23 shows low iron and ferritin, indicative of STONE, also possibly ACD in setting of CKD. Medications include ferrous sulfate 325mg every other day. Folate and B12 10/23 was 7.31 and 666 respectively. Plan: - Hold iron in setting of active infection - Follow up folate and B12 - CTM Hgb - Transfuse if Hgb <7 #IDDM2 with neuropathy Home meds include insulin glargine 20 units nightly and gabapentin 300 mg daily. A1c 11/26 5.6. - SSI sensitive - Accu-checks - Target blood sugar 140-180 inpatient - Continue gabapetin 300 mg daily #Weakness Normally ambulatory at home with walker and independent with most ADLs. Has been very weak as of late with increased falls. - PT consulted: has adequate family support, refused home health PT #HTN #HLD #CKD Lipid panel 11/27: trig 155, cholesterol 90, LDL 43, HDL 16. Baseline creatinine 1.2-1.7. - Continue home carvedilol and nifedipine - CTM renal function and BP Health Maintenance Disposition: med tele DVT prophylaxis: SCDs GI prophylaxis: none needed Diet: carb consistent CODE STATUS: FULL Patient plan of care was discussed with the attending physician, Dr. Mann. Radha Clayton, PGY-1 Attending Provider Attestation/Addendum I have examined the patient, reviewed labs and imaging findings, discussed the case with the resident(s), and reviewed entered orders. I agree with the plan of care as outlined in this note. Dr. Mackenzie MD
[2024-11-29] MEDS: INSULIN LISPRO (AdmeLOG) 1 UNIT/0.01 ML UNIT SC ×2 (12:15→21:08)
[2024-11-29] MEDS: SODIUM BICARB INJ 8.4% 1 mEq/ML 50 ML VIAL 50 MEQ IV (14:29)
--- NOTE | 2024-11-29 17:20 | PC.NURSE ---
Checked patient's blood glucose at 1720 and it was 52. patient given orange juice and a candy. No s/s of hypoglycemia. will retest her blood glucose again in 15 minutes.
[2024-11-29 18:09] LABS: Calcium, Random Urine < 1 mg/dL (2-18)
[2024-11-29] MEDS: NIFEdipine XL 30 MG TABCR PO (21:07)
[2024-11-30] VITALS (11 sets, daily range): BP systolic 114–129; BP diastolic 59–69; PULSE 76–88; RESP 15–25; TEMP 36.3–37.1; O2SAT 95–97
[2024-11-30 05:35] LABS: Basophils # (Auto) 0.0 Thou/mm3 (0.0-0.2); Basophils % (Auto) 0 % (0-2.5); Eosinophils # (Auto) 0.2 Thou/mm3 (0.0-0.5); Eosinophils % (Auto) 1 % (0-10); Hematocrit 23.3 % (36.0-46.0); Immature Granulocytes Auto 0.08 Thou/mm3 (0.00-0.00); Lymphocytes # (Auto) 1.9 Thou/mm3 (1.0-4.8); Lymphocytes % (Auto) 13 % (10-50); Mean Corpuscular HGB Conc 33.0 g/dl (31.0-37.0); Mean Corpuscular Hemoglobin 33.2 pg (25.0-35.0); Mean Corpuscular Volume 100 fL (80-100); Monocytes # (Auto) 0.2 Thou/mm3 (0.0-0.8); Monocytes % (Auto) 2 % (0-12); Neutrophils # (Auto) 12.1 Thou/mm3 (1.8-7.7); Neutrophils % (Auto) 83 % (37-80); Nucleated Red Blood Cell # 0.00 Thou/mm3 (0.00-0.00); Nucleated Red Blood Cell % 0 /100 WBC (0); Platelet Count 274 Thou/mm3 (140-440); RDW Standard Deviation 64.7 fL (36.4-46.3); Red Blood Count 2.32 Miln/mm3 (4.00-5.20); White Blood Count 14.5 Thou/mm3 (3.6-11.0)
[2024-11-30 05:36] LABS: Hemoglobin 7.7 g/dL (12.0-16.0)
[2024-11-30 06:00] LABS: Anion Gap 9 (7-16); BUN/Creatinine Ratio 14 Ratio (12-20); Blood Urea Nitrogen 17 mg/dL (9-23); Calcium 8.0 mg/dL (8.3-10.6); Carbon Dioxide 16.3 mMol/L (20.0-31.0); Chloride 111 mMol/L (98-107); Creatinine (Component) 1.2 mg/dL (0.6-1.3); Estimated Creatinine Clearance 29.0 mL/min (>60); Glucose 157 mg/dL (74-106); Osmolality,Calculated 276 (275-295); Potassium 4.3 mMol/L (3.4-5.1); Sodium 136 mMol/L (136-145); eGFR 46 See Note
[2024-11-30] MEDS: LEVOFLOXACIN 250 MG TABLET PO (08:29)
[2024-11-30] MEDS: GABAPENTIN 300 MG CAPSULE PO ×2 (08:30→21:13)
[2024-11-30] MEDS: AZITHROMYCIN 250 MG TABLET 500 MG PO (08:30)
[2024-11-30] MEDS: CAPECITABINE 500 MG PO ×2 (08:30→21:13)
[2024-11-30] MEDS: metroNIDAZOLE/NS 500 MG IVPB 500 MG/100 ML BAG 200 MG IV ×2 (11:37→21:18)
[2024-11-30] MEDS: INSULIN LISPRO (AdmeLOG) 1 UNIT/0.01 ML UNIT SC ×3 (12:25→21:16)
--- NOTE | 2024-11-30 14:39 | PC.SS ---
Rounding: SHEBA RYAN, Dr. Anton consulting, drainage tomorrow
--- NOTE | 2024-11-30 17:50 | PC.NURSE ---
Dr. Mills asked me to remove the sutures from pt's port a cath, I removed the dressing and there are julien which I removed without incident, incision is mostly healed, no redness, no swelling, no drainage
--- NOTE | 2024-11-30 18:16 | ESPR_ITS ---
Documentation for date of: 11/30/24 Subjective Subjective Interval history: Patient is seen and examined at bedside Denies any other complaints. Vitals are stable. Physical examination remains unchanged Labs done this morning showed downtrending WBC, renal functions are stable Patient is supposed to get CT-guided intra-abdominal abscess drainage tomorrow. Will follow-up on that Exam Vital Signs Temp Pulse Resp BP Pulse Ox O2 Del Method 97.6 F 77 18 129/66 97 Room Air 11/30/24 16:00 11/30/24 16:35 11/30/24 16:00 11/30/24 16:00 11/30/24 16:00 11/30/24 16:00 Narrative Exam Physical Exam General: Awake and in no acute distress. Conversational. Cachectic. HEENT: Normocephalic, atraumatic, mucous membranes moist. Heart: Regular rate and rhythm, normal S1 and S2, no murmurs appreciated. Lungs: CTAB. Abdomen: Soft, nondistended, nontender, positive bowel sounds. No guarding or rebound tenderness. LLQ colostomy bag with some watery light brown stool, no visible blood. Site clean and intact. : Nixon in place, draining well. Neurologic: Alert and oriented x3, no gross neurological deficit, and patient able to move all 4 extremities. Extremities: No edema. Skin: No rash or ecchymoses. Objective Labs 12/01/24 05:04 12/01/24 05:04 Labs: Laboratory Results - last 24 hr 11/30/24 05:12 WBC 14.5 H RBC 2.32 L Hgb 7.7 L Hct 23.3 L MCV 100 MCH 33.2 MCHC 33.0 RDW Std Deviation 64.7 H Plt Count 274 D Neut % (Auto) 83 H Lymph % (Auto) 13 [place] % (Auto) 2 Eos % (Auto) 1 Baso % (Auto) 0 Neut # (Auto) 12.1 H Lymph # (Auto) 1.9 [place] # (Auto) 0.2 Eos # (Auto) 0.2 Baso # (Auto) 0.0 Immature Gran # (Auto) 0.08 H Absolute Nucleated RBC 0.00 Immature Gran % 1 H Nucleated RBC % 0 Sodium 136 Potassium 4.3 Chloride 111 H Carbon Dioxide 16.3 L Anion Gap 9 BUN 17 Creatinine 1.2 Estim Creat Clear Calc 29.0 L eGFR 46 L BUN/Creatinine Ratio 14 Glucose 157 H Calculated Osmolality 276 Calcium 8.0 L ABG Interpretation ABG results: 11/26/24 11:08 ABG pH 7.38 ABG pCO2 25 L ABG pO2 85 ABG HCO3 15 L ABG O2 Saturation 97 ABG Base Excess -10 L Quality Measures Quality Measures sepsis Current suspected stage: ruled out Possible source: pulmonary Blood cultures ordered: completed in ED Antibiotic ordered: Yes Advance care planning discussed with:: patient Assessment & Plan Assessment Current Active Medications: Generic Name Dose Route Start Last Admin Trade Name Freq PRN Reason Stop Dose Admin Acetaminophen 650 mg 11/26/24 13:30 11/26/24 19:41 Acetaminophen 325 Mg Tablet PO 12/26/24 13:29 650 mg Q6H PRN Administration Fever >101.5 and pain 1-3 Hydrocodone Bitart/Acetaminophen 1 tab 11/27/24 18:43 Hydrocodone/Apap 5/325 Tablet PO 12/02/24 18:42 Q8HR PRN Pain 4-10 Carvedilol 3.125 mg 11/26/24 21:00 11/30/24 08:29 Carvedilol 3.125 Mg Tablet PO 12/26/24 20:59 3.125 mg BID MARION Administration Capecitabine 500 Mg 0 ea 11/26/24 21:00 11/30/24 08:30 Tablet PO 12/03/24 21:01 1 tablet BID MARION Administration Dextrose 25 ml 11/26/24 15:47 Dextrose 50%-Water Inj 50 Ml Syringe IV 12/26/24 15:46 Q15MIN PRN BG 50-70 responsive npo pt Dextrose 50 ml 11/26/24 15:47 Dextrose 50%-Water Inj 50 Ml Syringe IV 12/26/24 15:46 Q15MIN PRN BG <50 OR BG <70 & pt unresponsive Gabapentin 300 mg 11/29/24 21:30 11/30/24 08:30 Gabapentin 300 Mg Capsule PO 12/29/24 21:29 300 mg BID MARION Administration Glucagon 1 mg 11/26/24 15:47 Glucagon Inj 1 Mg Vial IM Q15MIN PRN BG <70, and no IV access Sodium Chloride 250 mls @ 999 mls/hr 11/28/24 13:12 11/28/24 16:25 Ns IV 12/28/24 13:10 Infused .Q16M MARION Infusion Metronidazole 500 mg in 100 mls @ 200 mls/hr 11/30/24 11:00 11/30/24 11:37 Flagyl 500 Mg Iv IV 12/07/24 10:59 200 mls/hr Q8HR MARION Administration Insulin Human Lispro 0 unit 11/26/24 17:00 11/30/24 17:38 Insulin Lispro (Admelog) 1 Unit/0.01 Ml Unit SC 12/26/24 16:59 2 unit ACHS MARION Administration Protocol Levofloxacin 250 mg 11/29/24 09:00 11/30/24 08:29 Levofloxacin 250 Mg Tablet PO 12/06/24 08:59 250 mg QDAY MARION Administration Nifedipine 30 mg 11/26/24 21:00 11/29/24 21:07 Nifedipine Xl 30 Mg Tabcr PO 12/26/24 20:59 30 mg HS MARION Administration Plan Patient is an 79-year-old female with past medical history of metastatic colon cancer s/p chemoradiation (CAPOX chemo), 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 #Urinary retention #Pelvic abscess Complaining of urinary retention, improves when sitting up in certain position. Bladder scan showed 800mL retained urine, inserted Nixon cathether with 200-300 mL of purulent output. Reinserted Nixon catheter and drained approximately 700 mL red tinged urine with clots. Follow up bladder US 11/27 showed no mass or calculi. Pelvic MRI 10/24 showed intact urinary bladder with no free fluid in pelvis. CT A/P 11/29 showed pelvic air-containing structure 8.3 x 5.0, concerning for abscess. Plan: - Plan for CT guided percutaneous catheter drainage on 12/01 - Nixon catheter in place (11/27- - Consulted urologist Dr. Anton, appreciate recommendations: d/c Nixon in 1 week, attempt voiding trials s/p abscess drainage - CTM urinary output - Hold anticoagulation #ESBL UTI, complicated Presented with weakness s/p fall yesterday. Denies LOC, dizziness, lightheadedness, or head trauma. Endorses dysuria, denies urinary frequency or hematuria. Does not meet sepsis criteria (only WBC 26 and suspected source of infection) UA is positive for nitrates and leukocyte esterase, 3+ blood, RBC 68, WBC 91, bacteria rare. Previously treated for UTI on previous admission 10/22-10/24, was treated with IV CFX and discharged with Augmentin. Urine culture grew ESBL. S/p IV CFX x1 in ED. Urine culture 11/26 grew ESBL sensitive to Zosyn. S/p IV Zosyn (11/26-11/28) Plan: - Consulted ID Dr. 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 Follows oncologist Dr. Lisa. Currently on chemotherapy treatment with capecitabine 1000 mg BID, last seen on 11/02/24 and was considering IV chemotherapy at the time. Chest CT shows progression of pulmonary nodular metastatic disease and left base PNA. CT A/P 11/29 showes progression of pulmonary nodular disease, as well as large rectosigmoid tumor mass extending to the presacral region with persistent abdominal lymphadenopathy and small bowel enteritis pattern. Noted marked abnormal thickening of urine endometrium. Plan: - Capecitabine BID - Will consult oncologist Dr. Lisa, appreciate recommendations - Azithromycin (11/27-11/30) - Abx as above - Oxygen prn #Acute on chronic non anion gap metabolic acidosis, improving Possibly renal tubular acidosis (Type 1 vs 2) versus intermittent diarrhea (which patient has every other week per family) via colostomy bag. Serum bicarb 14.6, baseline 17.5-19. ABG pH 7.38, pCO2 25, HCO3 15. Sodium 132, potassium WNL. Urine pH previously 8.0 on 10/22, now 6.0. 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 Does not take bicarb supplement at home. S/p 1L NS bolus in ED. Plan: - Sodium bicarb 50 mEq x1 - Follow up urine calcium - CTM labs #Chronic anemia, normocytic/borderline macrocytic Previously admitted 10/22-10/24 for acute on chronic anemia, likely multifactorial in setting of post menopausal bleeding, metastatic colon cancer, and STONE. Denies hematuria or bleeding anywhere at this time. Iron panel 10/23 shows low iron and ferritin, indicative of STONE, also possibly ACD in setting of CKD. Medications include ferrous sulfate 325mg every other day. Folate and B12 10/23 was 7.31 and 666 respectively. Plan: - Hold iron in setting of active infection - Follow up folate and B12 - CTM Hgb - Transfuse if Hgb <7 #IDDM2 with neuropathy Home meds include insulin glargine 20 units nightly and gabapentin 300 mg daily. A1c 11/26 5.6. - SSI sensitive - Accu-checks - Target blood sugar 140-180 inpatient - Continue gabapetin 300 mg daily #Weakness Normally ambulatory at home with walker and independent with most ADLs. Has been very weak as of late with increased falls. - PT consulted: has adequate family support, refused home health PT #HTN #HLD #CKD Lipid panel 11/27: trig 155, cholesterol 90, LDL 43, HDL 16. Baseline creatinine 1.2-1.7. - Continue home carvedilol and nifedipine - CTM renal function and BP Health Maintenance Disposition: med tele DVT prophylaxis: SCDs GI prophylaxis: none needed Diet: carb consistent CODE STATUS: FULL Patient plan of care was discussed with the attending physician, Dr. Mackenzie Mills, PGY2 Attending Provider Attestation/Addendum I have examined the patient, reviewed labs and imaging findings, discussed the case with the resident(s), and reviewed entered orders. 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 Patient and patient's daughters seen at bedside. No acute overnight events. Patient originally admitted for acute complicated urinary tract infection given her history of ESBL. Urine culture grew ESBL E. coli. Infectious disease was consulted and we will continue IV antibiotics. Hospital course complicated by acute urinary retention and in house urology was consulted who recommends Nixon catheter and bladder training and outpatient follow-up with urology. Given that patient's symptoms were not improving we obtained CT of abdomen and pelvis which unfortunately revealed progression of pulmonary nodular metastatic disease, persistent abdominal lymphadenopathy, marked abnormal thickening of the endometrium, and large rectosigmoid tumor mass extending to the presacral region. Patient CEA has now increased to 37. Patient follows at [facility]. Patient appears to have been on Xeloda and treatment was deemed ineffective by rising tumor markers worsening metastatic pulmonary nodules. Patient is status post chemotherapy port and appears to be scheduled to start chemotherapy with FOLFOX. Will attempt to follow-up with patient's oncologist in a.m. for further rectal lesions. Patient was planned to have julien removed from Port-A-Cath site today which we will remove. CT abdomen also revealed fluid and air-containing structure in the pelvis at least 8.3 x 5.0 cm consistent with abscess which is amendable to CT-guided percutaneous catheter drainage which is ordered with interventional radiology for AM. N.p.o. after midnight. Continue IV antibiotics. Follow-up intraoperative cultures. Patient's chronic metabolic acidosis is currently stable. CKD at baseline. Continue insulin sliding scale for diabetes mellitus type 2. Patient and family updated on the plan and in agreement. All questions answered to satisfaction. Please see residents note for additional details and management. Dr. Mackenzie MD
[2024-11-30 20:38] LABS: Folate 6.24 ng/mL (>5.38); Vitamin B12 1304 pg/mL (211-911)
[2024-11-30] MEDS: NIFEdipine XL 30 MG TABCR PO (21:12)
[2024-12-01] VITALS (12 sets, daily range): BP systolic 121–137; BP diastolic 59–72; PULSE 78–91; RESP 16–21; TEMP 36.3–37.2; O2SAT 93–100
--- NOTE | 2024-12-01 03:59 | EKG_ITS ---
[facility] Test Date: 2024-12-01 Pat Name: NIRAV CAGLE [facility] Commissioner Of Officials: LUCIUS : 1945 Requested By: Jessica Dumas Order Number: [id number] Reading MD: Jessica Dumas Measurements Intervals [place] Rate: 89 P: 20 OK: 151 QRS: 6 QRSD: 128 T: 91 QT: 375 QTc: 457 Interpretive Statements SINUS RHYTHM LEFT BUNDLE BRANCH BLOCK Compared to ECG 11/26/2024 06:27:51 No significant changes /store/S0/[id number]
[2024-12-01] MEDS: metroNIDAZOLE/NS 500 MG IVPB 500 MG/100 ML BAG 200 MG IV (05:29)
[2024-12-01 05:50] LABS: Basophils # (Auto) 0.0 Thou/mm3 (0.0-0.2); Basophils % (Auto) 0 % (0-2.5); Eosinophils # (Auto) 0.1 Thou/mm3 (0.0-0.5); Eosinophils % (Auto) 1 % (0-10); Hematocrit 25.6 % (36.0-46.0); Immature Granulocytes Auto 0.10 Thou/mm3 (0.00-0.00); Lymphocytes # (Auto) 1.7 Thou/mm3 (1.0-4.8); Lymphocytes % (Auto) 11 % (10-50); Mean Corpuscular HGB Conc 33.6 g/dl (31.0-37.0); Mean Corpuscular Hemoglobin 33.7 pg (25.0-35.0); Mean Corpuscular Volume 100 fL (80-100); Monocytes # (Auto) 0.3 Thou/mm3 (0.0-0.8); Monocytes % (Auto) 2 % (0-12); Neutrophils # (Auto) 13.5 Thou/mm3 (1.8-7.7); Neutrophils % (Auto) 86 % (37-80); Nucleated Red Blood Cell # 0.00 Thou/mm3 (0.00-0.00); Nucleated Red Blood Cell % 0 /100 WBC (0); Platelet Count 310 Thou/mm3 (140-440); RDW Standard Deviation 64.5 fL (36.4-46.3); Red Blood Count 2.55 Miln/mm3 (4.00-5.20); White Blood Count 15.8 Thou/mm3 (3.6-11.0)
[2024-12-01 05:58] LABS: Hemoglobin 8.6 g/dL (12.0-16.0)
[2024-12-01 06:10] LABS: Anion Gap 10 (7-16); BUN/Creatinine Ratio 11 Ratio (12-20); Blood Urea Nitrogen 13 mg/dL (9-23); Calcium 8.2 mg/dL (8.3-10.6); Carbon Dioxide 16.8 mMol/L (20.0-31.0); Chloride 109 mMol/L (98-107); Creatinine (Component) 1.2 mg/dL (0.6-1.3); Estimated Creatinine Clearance 29.0 mL/min (>60); Glucose 149 mg/dL (74-106); Magnesium 1.9 mg/dL (1.6-2.6); Osmolality,Calculated 275 (275-295); Potassium 4.8 mMol/L (3.4-5.1); Sodium 136 mMol/L (136-145); Troponin I < 0.020 ng/mL (0.0-0.045); eGFR 46 See Note
--- NOTE | 2024-12-01 07:56 | XR_ITS ---
Examination: CT-guided percutaneous catheter drainage pelvic abscess CT pelvis without intravenous contrast Date and time of procedure: December 01, 2024 1548 hours INDICATIONS: Abdominal pain and distention this week, large rectosigmoid tumor mass on CT abdomen pelvis 11/28/2024 with air and fluid containing abscess 8.3 x 5.0 cm Informed consent provided. A timeout was completed verifying correct patient, procedure, site and positioning. . Technique: Axial 3 mm sections were obtained for localization of the pelvic abscess. Appropriate area is marked. The patient's site was prepped and draped in sterile fashion Maximal sterile barrier technique utilized, including hand hygiene Local anesthesia was obtained with 1% lidocaine. Low dose protocols were performed. One or more of the following dose reduction techniques were used; automated exposure control, adjustment of the mA and/or KV according to patient size, use of iterative reconstruction technique. The soft tissue in the posterior pelvis extending to the abscess is extremely firm which precludes percutaneous placement of a drainage catheter A 5 [employer]ian [employer] catheter was successful in entering the abscess collection with successful removal of 30 cc purulent material Patient appears in stable condition during this procedure. At completion of the procedure, the patient is in satisfactory condition. Estimated blood loss 2 cc Collection sensitivity report to follow Impression: Successful CT-guided 5 Georgian catheter drainage of pelvic abscess
[2024-12-01] MEDS: LEVOFLOXACIN 250 MG TABLET PO (09:02)
[2024-12-01] MEDS: GABAPENTIN 300 MG CAPSULE PO ×2 (09:02→20:29)
--- NOTE | 2024-12-01 09:16 | ESPR_ITS ---
Subjective Subjective Interval history: flagyl is the same iv and po. so can be given po w/o problem. organisms in bc and urine are s. pt is afebrile. she is 79 yoa Exam Vital Signs Temp Pulse Resp BP Pulse Ox O2 Del Method 97.6 F 91 18 127/62 93 L Room Air 12/01/24 08:00 12/01/24 09:01 12/01/24 08:00 12/01/24 09:01 12/01/24 08:00 12/01/24 08:00 Narrative Exam 79 y/o with metastatic CA and possible abscess. full code nonetheless. Objective - Internal Medicine Labs 12/01/24 05:04 12/01/24 05:04 Labs: Laboratory Results - last 24 hr 11/29/24 12/01/24 06:21 05:04 WBC 15.8 H RBC 2.55 L Hgb 8.6 L Hct 25.6 L MCV 100 MCH 33.7 MCHC 33.6 RDW Std Deviation 64.5 H Plt Count 310 D Neut % (Auto) 86 H Lymph % (Auto) 11 [place] % (Auto) 2 Eos % (Auto) 1 Baso % (Auto) 0 Neut # (Auto) 13.5 H Lymph # (Auto) 1.7 [place] # (Auto) 0.3 Eos # (Auto) 0.1 Baso # (Auto) 0.0 Immature Gran # (Auto) 0.10 H Absolute Nucleated RBC 0.00 Immature Gran % 1 H Nucleated RBC % 0 Sodium 136 Potassium 4.8 D Chloride 109 H Carbon Dioxide 16.8 L Anion Gap 10 BUN 13 Creatinine 1.2 Estim Creat Clear Calc 29.0 L eGFR 46 L BUN/Creatinine Ratio 11 L Glucose 149 H Calculated Osmolality 275 Calcium 8.2 L Magnesium 1.9 Troponin I < 0.020 Vitamin B12 1304 H Folate 6.24 ABG Interpretation ABG results: 11/26/24 11:08 ABG pH 7.38 ABG pCO2 25 L ABG pO2 85 ABG HCO3 15 L ABG O2 Saturation 97 ABG Base Excess -10 L Assessment & Plan A&P Narrative uti w/o bacteremia different germ in bc uti treated. no esbl this time no pneumonia metastatic CA in a full code at 79 yoa all po regimen of levaquin and flagyl ok if drained or not ok to have discussion about goals of care with her and any other decision makers as she is 79 yoa and has CA can see again sunday if still here. home ok with me when and if able. Time Spent With Patient Time: Total time spent is greater than 50% in coordination of care (as documented) at patient's floor/unit and/or counseling patient:
[2024-12-01 09:19] LABS: INR 1.3 (0.9-1.3); Partial Thromboplastin Time 26.5 Seconds (22.0-36.0); Prothrombin Time 13.7 Seconds (9.0-12.2)
--- NOTE | 2024-12-01 10:25 | ESPR_ITS ---
<Statement entered by Brandon Mills MD - 12/01/24 16:06> Patient is seen and examined at bedside. Overnight, patient was noted to have a new onset left bundle branch block by nurse and informed the night team for which troponin and magnesium was ordered which were found to be within normal limits. Per chart review, patient had left bundle branch block previously and it is not new onset. Will continue telemetry monitoring. Patient underwent CT- guided abscess drainage and noted to have 30 mL of fluid which was sent for Gram stain and culture. Patient was started on diet. Will continue metronidazole and levofloxacin for now. Patient is to follow-up on outpatient basis for metastatic cancer. Anticipating discharge in next 24 to 48 hours. I have personally seen and examined the patient, agree with residents assessment and plan Patient plan of care was discussed with the attending physician, Dr. Mackenzie Mills, PGY2 Documentation for date of: 12/01/24 Subjective Subjective Interval history: Overnight, patient was noted to have left bundle branch block on telemetry however per chart review, this is chronic. Troponins were negative and magnesium is within normal limits. No new complaints this morning. Nixon catheter continues to drain well, light yellow urine. S/p abscess drainage, removed 30 cc of purulent fluid. Will follow-up abscess culture and analysis. Will continue levofloxacin 250 mg and metronidazole 500 mg twice daily. May consider increasing levofloxacin dose on discharge in light of improved creatinine and renal function. Will discontinue Nixon and attempt voiding trial tomorrow in anticipate for discharge to home per patient and family preference. Exam Vital Signs Temp Pulse Resp BP Pulse Ox O2 Del Method 97.6 F 91 18 127/62 93 L Room Air 12/01/24 08:00 12/01/24 09:01 12/01/24 08:00 12/01/24 09:01 12/01/24 08:00 12/01/24 08:00 Narrative Exam Physical Exam General: Awake and in no acute distress. Conversational. Cachectic. HEENT: Normocephalic, atraumatic, mucous membranes moist. Heart: Regular rate and rhythm, normal S1 and S2, no murmurs appreciated. Lungs: CTAB. Abdomen: Soft, nondistended, nontender, positive bowel sounds. No guarding or rebound tenderness. LLQ colostomy bag with some watery light brown stool, no visible blood. Site clean and intact. : Nixon in place, draining well. Light yellow colored urine, no clots observed. Neurologic: Alert and oriented x3, no gross neurological deficit, and patient able to move all 4 extremities. Extremities: No edema. Skin: No rash or ecchymoses. Objective Labs 12/01/24 05:04 12/01/24 05:04 Labs: Laboratory Results - last 24 hr 11/29/24 12/01/24 06:21 05:04 WBC 15.8 H RBC 2.55 L Hgb 8.6 L Hct 25.6 L MCV 100 MCH 33.7 MCHC 33.6 RDW Std Deviation 64.5 H Plt Count 310 D Neut % (Auto) 86 H Lymph % (Auto) 11 Amelia % (Auto) 2 Eos % (Auto) 1 Baso % (Auto) 0 Neut # (Auto) 13.5 H Lymph # (Auto) 1.7 Amelia # (Auto) 0.3 Eos # (Auto) 0.1 Baso # (Auto) 0.0 Immature Gran # (Auto) 0.10 H Absolute Nucleated RBC 0.00 Immature Gran % 1 H Nucleated RBC % 0 PT 13.7 H INR 1.3 APTT 26.5 Sodium 136 Potassium 4.8 D Chloride 109 H Carbon Dioxide 16.8 L Anion Gap 10 BUN 13 Creatinine 1.2 Estim Creat Clear Calc 29.0 L eGFR 46 L BUN/Creatinine Ratio 11 L Glucose 149 H Calculated Osmolality 275 Calcium 8.2 L Magnesium 1.9 Troponin I < 0.020 Vitamin B12 1304 H Folate 6.24 ABG Interpretation ABG results: 11/26/24 11:08 ABG pH 7.38 ABG pCO2 25 L ABG pO2 85 ABG HCO3 15 L ABG O2 Saturation 97 ABG Base Excess -10 L Quality Measures Quality Measures sepsis Current suspected stage: ruled out Possible source: pulmonary Blood cultures ordered: completed in ED Antibiotic ordered: Yes Advance care planning discussed with:: patient Assessment & Plan Assessment Current Active Medications: Generic Name Dose Route Start Last Admin Trade Name Freq PRN Reason Stop Dose Admin Acetaminophen 650 mg 11/26/24 13:30 11/26/24 19:41 Acetaminophen 325 Mg Tablet PO 12/26/24 13:29 650 mg Q6H PRN Administration Fever >101.5 and pain 1-3 Hydrocodone Bitart/Acetaminophen 1 tab 09/18/25 18:43 Hydrocodone/Apap 5/325 Tablet PO 12/02/24 18:42 Q8HR PRN Pain 4-10 Carvedilol 3.125 mg 11/26/24 21:00 12/01/24 09:01 Carvedilol 3.125 Mg Tablet PO 12/26/24 20:59 3.125 mg BID MARION Administration Capecitabine 500 Mg 0 ea 11/26/24 21:00 11/30/24 21:13 Tablet PO 12/03/24 21:01 3 tablet BID MARION Administration Dextrose 25 ml 11/26/24 15:47 Dextrose 50%-Water Inj 50 Ml Syringe IV 12/26/24 15:46 Q15MIN PRN BG 50-70 responsive npo pt Dextrose 50 ml 11/26/24 15:47 Dextrose 50%-Water Inj 50 Ml Syringe IV 12/26/24 15:46 Q15MIN PRN BG <50 OR BG <70 & pt unresponsive Gabapentin 300 mg 11/29/24 21:30 12/01/24 09:02 Gabapentin 300 Mg Capsule PO 12/29/24 21:29 300 mg BID MARION Administration Glucagon 1 mg 11/26/24 15:47 Glucagon Inj 1 Mg Vial IM Q15MIN PRN BG <70, and no IV access Sodium Chloride 250 mls @ 999 mls/hr 11/28/24 13:12 11/28/24 16:25 Ns IV 12/28/24 13:10 Infused .Q16M MARION Infusion Insulin Human Lispro 0 unit 11/26/24 17:00 12/01/24 08:56 Insulin Lispro (Admelog) 1 Unit/0.01 Ml Unit SC 12/26/24 16:59 Not Given ACHS [facility] Protocol Levofloxacin 250 mg 11/29/24 09:00 12/01/24 09:02 Levofloxacin 250 Mg Tablet PO 12/06/24 08:59 250 mg QDAY MARION Administration Metronidazole 500 mg 12/01/24 21:00 Metronidazole 250 Mg Tablet PO 12/08/24 20:59 BID MARION Nifedipine 30 mg 11/26/24 21:00 11/30/24 21:12 Nifedipine Xl 30 Mg Tabcr PO 12/26/24 20:59 30 mg HS MARION Administration Plan Patient is an 79-year-old female with past medical history of metastatic colon cancer s/p chemoradiation (CAPOX chemo), 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 #Urinary retention #Pelvic abscess #S/p drainage Complaining of urinary retention, improves when sitting up in certain position. Bladder scan showed 800mL retained urine, inserted Nixon cathether with 200-300 mL of purulent output. Reinserted Nixon catheter and drained approximately 700 mL red tinged urine with clots. Follow up bladder US 11/27 showed no mass or calculi. Pelvic MRI 10/24 showed intact urinary bladder with no free fluid in pelvis. CT A/P 11/29 showed pelvic air-containing structure 8.3 x 5.0, concerning for abscess. S/p CT-guided percutaneous catheter drainage of pelvic abscess on 12/01, removed 30 cc purulent material. Plan: - Follow-up abscess culture - Metronidazole 500 mg BID (11/30- - Nixon catheter in place (11/27) - Consulted urologist Dr. Anton, appreciate recommendations: d/c Nixon in 1 week, attempt voiding trials s/p abscess drainage - CTM urinary output - Hold anticoagulation #ESBL UTI, complicated Presented with weakness s/p fall yesterday. Denies LOC, dizziness, lightheadedness, or head trauma. Endorses dysuria, denies urinary frequency or hematuria. Does not meet sepsis criteria (only WBC 26 and suspected source of infection) UA is positive for nitrates and leukocyte esterase, 3+ blood, RBC 68, WBC 91, bacteria rare. Previously treated for UTI on previous admission 10/22-10/24, was treated with IV CFX and discharged with Augmentin. Urine culture grew ESBL. S/p IV CFX x1 in ED. Urine culture 11/26 grew ESBL sensitive to Zosyn. S/p IV Zosyn (11/26-11/28) Plan: - Consulted ID Dr. 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 Follows oncologist Dr. Lisa. Currently on chemotherapy treatment with capecitabine 1000 mg BID, last seen on 11/02/24 and was considering IV chemotherapy at the time. Chest CT shows progression of pulmonary nodular metastatic disease and left base PNA. CT A/P 11/29 showes progression of pulmonary nodular disease, as well as large rectosigmoid tumor mass extending to the presacral region with persistent abdominal lymphadenopathy and small bowel enteritis pattern. Noted marked abnormal thickening of urine endometrium. Plan: - Capecitabine BID - Will consult oncologist Dr. Lisa, appreciate recommendations - Azithromycin (11/27-11/30) - Abx as above - Oxygen prn #Acute on chronic non anion gap metabolic acidosis, improving Possibly renal tubular acidosis (Type 1 vs 2) versus intermittent diarrhea (which patient has every other week per family) via colostomy bag. Serum bicarb 14.6, baseline 17.5-19. ABG pH 7.38, pCO2 25, HCO3 15. Sodium 132, potassium WNL. Urine pH previously 8.0 on 10/22, now 6.0. 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 Urine calcium <1, more likely type 2. Does not take bicarb supplement at home. S/p 1L NS bolus in ED. Plan: - S/p sodium bicarb 50 mEq x1 - CTM labs #Chronic anemia, normocytic/borderline macrocytic Previously admitted 10/22-10/24 for acute on chronic anemia, likely multifactorial in setting of post menopausal bleeding, metastatic colon cancer, and STONE. Denies hematuria or bleeding anywhere at this time. Iron panel 10/23 shows low iron and ferritin, indicative of STONE, also possibly ACD in setting of CKD. Medications include ferrous sulfate 325mg every other day. Folate and B12 10/23 was 7.31 and 666 respectively. Plan: - Hold iron in setting of active infection - CTM Hgb - Transfuse if Hgb <7 #IDDM2 with neuropathy Home meds include insulin glargine 20 units nightly and gabapentin 300 mg daily. A1c 11/26 5.6. - SSI sensitive - Accu-checks - Target blood sugar 140-180 inpatient - Continue gabapetin 300 mg daily #Weakness Normally ambulatory at home with walker and independent with most ADLs. Has been very weak as of late with increased falls. - PT consulted: has adequate family support, refused home health PT #THOMAS on CKD Baseline GFR low in high 30s to low 40s. On admission, creatinine 1.3, baseline 1.2-1.3. Mildly increased to 1.4 s/p CT abdomen pelvis with contrast on 12/07, required for visualization of possible pelvic abscess at that time. S/p IV fluid resuscitation. Plan: -CTM renal panel -Encourage oral hydration -Avoid nephrotoxic drugs -Renally dose medications as needed #HTN #HLD Lipid panel 11/27: trig 155, cholesterol 90, LDL 43, HDL 16. - Continue home carvedilol and nifedipine - CTM BP Health Maintenance Disposition: med tele DVT prophylaxis: SCDs GI prophylaxis: none needed Diet: carb consistent CODE STATUS: FULL Patient plan of care was discussed with the resident, Dr. Mills, and attending physician, Dr. Mann. Radha Clayton, PGY-1 Attending Provider Attestation/Addendum I have examined the patient, reviewed labs and imaging findings, discussed the case with the resident(s), and reviewed entered orders. 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 Patient and patient's daughters seen at bedside. No acute overnight events. Patient originally admitted for acute complicated urinary tract infection given her history of ESBL. Urine culture grew ESBL E. coli. Infectious disease was consulted and we will continue IV antibiotics. Hospital course complicated by acute urinary retention and in house urology was consulted who recommends Nixon catheter and bladder training and outpatient follow-up with urology. Given that patient's symptoms were not improving we obtained CT of abdomen and pelvis which unfortunately revealed progression of pulmonary nodular metastatic disease, persistent abdominal lymphadenopathy, marked abnormal thickening of the endometrium, and large rectosigmoid tumor mass extending to the presacral region. Patients CEA has now increased to 37. Patient follows at [facility]. Patient appears to have been on Xeloda and treatment was deemed ineffective by rising tumor markers worsening metastatic pulmonary nodules. Patient is status post chemotherapy port and appears to be scheduled to start chemotherapy with FOLFOX. Will attempt to follow-up with patient's oncologist today for any further recommendations. CT abdomen also revealed fluid and air-containing structure in the pelvis at least 8.3 x 5.0 cm consistent with abscess which is amendable to CT-guided percutaneous catheter drainage which is ordered with interventional radiology for today. Continue NPO for now. Continue IV antibiotics. Follow-up intraoperative cultures. Patient's chronic metabolic acidosis is currently stable. CKD at baseline. Continue insulin sliding scale for diabetes mellitus type 2. Patient has LBBB and cardiology consulted. Patient and family updated on the plan and in agreement. All questions answered to satisfaction. Please see residents note for additional details and management. Dr. Mackenzie MD
--- NOTE | 2024-12-01 14:05 | PC.NURSE ---
Pt was taken to IR at this time for procedure.
[2024-12-01] MEDS: fentaNYL CIT INJ 50 mCg/ML AMP 2ML 75 MCG IVP (15:16)
[2024-12-01] MEDS: LIDOCAINE INJ PF 1% 30 ML VIAL 8 ML EPID (15:30)
--- NOTE | 2024-12-01 16:00 | PC.SS ---
Follow up note: IV antibiotic. Abscess drain. Pt will return home with .
[2024-12-01] MEDS: INSULIN LISPRO (AdmeLOG) 1 UNIT/0.01 ML UNIT SC ×2 (17:39→20:36)
[2024-12-01] MEDS: NIFEdipine XL 30 MG TABCR PO (20:29)
[2024-12-01] MEDS: CAPECITABINE 500 MG PO (20:30)
[2024-12-02] VITALS (11 sets, daily range): BP systolic 105–141; BP diastolic 56–75; PULSE 79–92; RESP 13–21; TEMP 36.4–36.9; O2SAT 93–97
[2024-12-02 05:49] LABS: Basophils # (Auto) 0.0 Thou/mm3 (0.0-0.2); Basophils % (Auto) 0 % (0-2.5); Eosinophils # (Auto) 0.1 Thou/mm3 (0.0-0.5); Eosinophils % (Auto) 0 % (0-10); Hematocrit 24.6 % (36.0-46.0); Immature Granulocytes Auto 0.17 Thou/mm3 (0.00-0.00); Lymphocytes # (Auto) 1.9 Thou/mm3 (1.0-4.8); Lymphocytes % (Auto) 9 % (10-50); Mean Corpuscular HGB Conc 33.7 g/dl (31.0-37.0); Mean Corpuscular Hemoglobin 33.6 pg (25.0-35.0); Mean Corpuscular Volume 100 fL (80-100); Monocytes # (Auto) 0.6 Thou/mm3 (0.0-0.8); Monocytes % (Auto) 3 % (0-12); Neutrophils # (Auto) 17.7 Thou/mm3 (1.8-7.7); Neutrophils % (Auto) 87 % (37-80); Nucleated Red Blood Cell # 0.00 Thou/mm3 (0.00-0.00); Nucleated Red Blood Cell % 0 /100 WBC (0); Platelet Count 378 Thou/mm3 (140-440); RDW Standard Deviation 62.4 fL (36.4-46.3); Red Blood Count 2.47 Miln/mm3 (4.00-5.20); White Blood Count 20.5 Thou/mm3 (3.6-11.0)
[2024-12-02 05:54] LABS: Hemoglobin 8.3 g/dL (12.0-16.0)
[2024-12-02 06:12] LABS: Anion Gap 8 (7-16); BUN/Creatinine Ratio 14 Ratio (12-20); Blood Urea Nitrogen 15 mg/dL (9-23); Calcium 8.2 mg/dL (8.3-10.6); Carbon Dioxide 17.6 mMol/L (20.0-31.0); Chloride 108 mMol/L (98-107); Creatinine (Component) 1.1 mg/dL (0.6-1.3); Estimated Creatinine Clearance 31.7 mL/min (>60); Glucose 172 mg/dL (74-106); Osmolality,Calculated 273 (275-295); Potassium 4.9 mMol/L (3.4-5.1); Sodium 134 mMol/L (136-145); eGFR 51 See Note
[2024-12-02] MEDS: INSULIN LISPRO (AdmeLOG) 1 UNIT/0.01 ML UNIT SC ×4 (07:44→21:24)
[2024-12-02] MEDS: LEVOFLOXACIN 250 MG TABLET PO ×2 (08:13→12:01)
[2024-12-02] MEDS: GABAPENTIN 300 MG CAPSULE PO ×2 (08:13→21:20)
[2024-12-02] MEDS: CAPECITABINE 500 MG PO ×2 (08:14→21:20)
[2024-12-02] MEDS: HYDROcodone/APAP 5/325 TABLET 1 TAB PO (08:14)
[2024-12-02] MEDS: INSULIN DEGLUDEC 5 UNIT/0.05 ML (PER 5 UNITS) 4 UNIT SC (08:40)
[2024-12-02 12:31] LABS: Base Excess, Venous -7 (-3-3); O2 Saturation, Venous 94 % (96-97); PCO2, Venous 30 mmHg (36-56); PO2, Venous 77 mmHg (15-58); pH, Venous 7.38 (7.33-7.66)
--- NOTE | 2024-12-02 14:09 | ESPR_ITS ---
<Statement entered by Carlos Ledesma MD - 12/02/24 17:18> Patient seen and assessed in hospital bed with family members at bedside. Patient's WBC count is uptrending possibly secondary to inflammation post abscess drainage or underlying urinary tract infection. Will increase Levaquin dose to 500 mg as patient no longer has kidney injury and continue monitoring for intra-abdominal cultures which are still pending. Expect discharge within the next 24 to 48 hours so long as patient's WBC count downtrends and she remains clinically stable. I have personally seen and examined the patient. I agree with the resident's assessment and plan as documented below. Carlos Ledesma DO PGY-2 Internal Medicine - [facility] Documentation for date of: 12/02/24 Subjective Subjective Interval history: No acute events overnight. No new complaints this morning. WBC increased today, possibly reactive s/p abscess drainage. In light of improved kidney function, will increase levofloxacin to 500 mg daily, will continue metronidazole 500 mg twice daily. Will continue to monitor CBC. S/p abscess drainage yesterday, removed 30 cc. Pending abscess fluid analysis. Glucose continue to be elevated in low 200s overnight, takes glargine 20 units nightly. Gave degludec 4 units in AM, will start 8 units nightly. Continue sliding scale and will continue to monitor. 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 Repeat VBG shows venous pH within normal limits but with mild alkalosis. Exam Vital Signs Temp Pulse Resp BP Pulse Ox O2 Del Method O2 Flow Rate 97.5 F 79 13 105/56 L 96 Room Air 2 12/02/24 11:56 12/02/24 11:56 12/02/24 11:56 12/02/24 11:56 12/02/24 11:56 12/02/24 11:56 12/01/24 15:20 Narrative Exam Physical Exam General: Awake and in no acute distress. Conversational. Cachectic. HEENT: Normocephalic, atraumatic, mucous membranes moist. Heart: Regular rate and rhythm, normal S1 and S2, no murmurs appreciated. Lungs: CTAB. Abdomen: Soft, nondistended, nontender, positive bowel sounds. No guarding or rebound tenderness. LLQ colostomy bag with some watery light brown stool, no visible blood. Site clean and intact. : Nixon in place, draining well. Yellow colored urine, no clots observed. Neurologic: Alert and oriented x3, no gross neurological deficit, and patient able to move all 4 extremities. Extremities: No edema. Skin: No rash or ecchymoses. Objective Labs 12/03/24 05:31 12/03/24 05:31 Labs: Laboratory Results - last 24 hr 12/02/24 12/02/24 05:15 12:14 WBC 20.5 H RBC 2.47 L Hgb 8.3 L Hct 24.6 L MCV 100 MCH 33.6 MCHC 33.7 RDW Std Deviation 62.4 H Plt Count 378 D Neut % (Auto) 87 H Lymph % (Auto) 9 L [place] % (Auto) 3 Eos % (Auto) 0 Baso % (Auto) 0 Neut # (Auto) 17.7 H Lymph # (Auto) 1.9 [place] # (Auto) 0.6 Eos # (Auto) 0.1 Baso # (Auto) 0.0 Immature Gran # (Auto) 0.17 H Absolute Nucleated RBC 0.00 Immature Gran % 1 H Nucleated RBC % 0 VBG pH 7.38 VBG pCO2 30 L VBG pO2 77 H VBG O2 Sat (Walker) 94 L VBG Base Excess -7 L Sodium 134 L Potassium 4.9 Chloride 108 H Carbon Dioxide 17.6 L Anion Gap 8 BUN 15 Creatinine 1.1 Estim Creat Clear Calc 31.7 L eGFR 51 L BUN/Creatinine Ratio 14 Glucose 172 H Calculated Osmolality 273 L Calcium 8.2 L ABG Interpretation ABG results: 11/26/24 12/02/24 11:08 12:14 ABG pH 7.38 ABG pCO2 25 L ABG pO2 85 ABG HCO3 15 L ABG O2 Saturation 97 ABG Base Excess -10 L VBG pH 7.38 VBG pCO2 30 L VBG pO2 77 H VBG Base Excess -7 L Quality Measures Quality Measures sepsis Current suspected stage: ruled out Possible source: pulmonary Blood cultures ordered: completed in ED Antibiotic ordered: Yes Advance care planning discussed with:: patient Assessment & Plan Assessment Current Active Medications: Generic Name Dose Route Start Last Admin Trade Name Freq PRN Reason Stop Dose Admin Acetaminophen 650 mg 11/26/24 13:30 11/26/24 19:41 Acetaminophen 325 Mg Tablet PO 12/26/24 13:29 650 mg Q6H PRN Administration Fever >101.5 and pain 1-3 Hydrocodone Bitart/Acetaminophen 1 tab 11/27/24 18:43 12/02/24 08:14 Hydrocodone/Apap 5/325 Tablet PO 12/02/24 18:42 1 tab Q8HR PRN Administration Pain 4-10 Carvedilol 3.125 mg 11/26/24 21:00 12/02/24 08:13 Carvedilol 3.125 Mg Tablet PO 12/26/24 20:59 3.125 mg BID MARION Administration Capecitabine 500 Mg 0 ea 11/26/24 21:00 12/02/24 08:14 Tablet PO 12/03/24 21:01 3 tablet BID MARION Administration Dextrose 25 ml 11/26/24 15:47 Dextrose 50%-Water Inj 50 Ml Syringe IV 12/26/24 15:46 Q15MIN PRN BG 50-70 responsive npo pt Dextrose 50 ml 11/26/24 15:47 Dextrose 50%-Water Inj 50 Ml Syringe IV 12/26/24 15:46 Q15MIN PRN BG <50 OR BG <70 & pt unresponsive Gabapentin 300 mg 11/29/24 21:30 12/02/24 08:13 Gabapentin 300 Mg Capsule PO 12/29/24 21:29 300 mg BID MARION Administration Glucagon 1 mg 11/26/24 15:47 Glucagon Inj 1 Mg Vial IM Q15MIN PRN BG <70, and no IV access Insulin Degludec 8 unit 12/02/24 21:00 Insulin Degludec 5 Unit/0.05 Ml (Per 5 Units) SC 01/01/25 20:59 HS [facility] Insulin Human Lispro 0 unit 11/26/24 17:00 12/02/24 11:38 Insulin Lispro (Admelog) 1 Unit/0.01 Ml Unit SC 12/26/24 16:59 1 unit ACHS MARION Administration Protocol Levofloxacin 500 mg 12/03/24 09:00 Levofloxacin 250 Mg Tablet PO 12/10/24 08:59 QDAY MARION Metronidazole 500 mg 12/01/24 21:00 12/02/24 08:12 Metronidazole 250 Mg Tablet PO 12/08/24 20:59 500 mg BID MARION Administration Nifedipine 30 mg 11/26/24 21:00 12/01/24 20:29 Nifedipine Xl 30 Mg Tabcr PO 12/26/24 20:59 30 mg HS MARION Administration Plan Patient is an 79-year-old female with past medical history of metastatic colon cancer s/p chemoradiation (CAPOX chemo), 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 #Urinary retention #Pelvic abscess #S/p drainage Complaining of urinary retention, improves when sitting up in certain position. Bladder scan showed 800mL retained urine, inserted Nixon cathether with 200-300 mL of purulent output. Reinserted Nixon catheter and drained approximately 700 mL red tinged urine with clots. Follow up bladder US 11/27 showed no mass or calculi. Pelvic MRI 10/24 showed intact urinary bladder with no free fluid in pelvis. CT A/P 11/29 showed pelvic air-containing structure 8.3 x 5.0, concerning for abscess. S/p CT-guided percutaneous catheter drainage of pelvic abscess on 12/01, removed 30 cc purulent material. Plan: - Follow-up abscess culture - Metronidazole 500 mg BID (11/30- - Nixon catheter in place (11/27) - Consulted urologist Dr. Anton, appreciate recommendations: d/c Nixon in 1 week, attempt voiding trials s/p abscess drainage - CTM urinary output - Hold anticoagulation #ESBL UTI, complicated Presented with weakness s/p fall yesterday. Denies LOC, dizziness, lightheadedness, or head trauma. Endorses dysuria, denies urinary frequency or hematuria. Does not meet sepsis criteria (only WBC 26 and suspected source of infection) UA is positive for nitrates and leukocyte esterase, 3+ blood, RBC 68, WBC 91, bacteria rare. Previously treated for UTI on previous admission 10/22-10/24, was treated with IV CFX and discharged with Augmentin. Urine culture grew ESBL. S/p IV CFX x1 in ED. Urine culture 11/26 grew ESBL sensitive to Zosyn. S/p IV Zosyn (11/26-11/28) Plan: - Consulted ID Dr. 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 Follows oncologist Dr. Lisa. Currently on chemotherapy treatment with capecitabine 1000 mg BID, last seen on 11/02/24 and was considering IV chemotherapy at the time. Chest CT shows progression of pulmonary nodular metastatic disease and left base PNA. CT A/P 11/29 showes progression of pulmonary nodular disease, as well as large rectosigmoid tumor mass extending to the presacral region with persistent abdominal lymphadenopathy and small bowel enteritis pattern. Noted marked abnormal thickening of urine endometrium. Plan: - Capecitabine BID - Will consult oncologist Dr. Lisa, appreciate recommendations - Azithromycin (11/27-11/30) - Abx as above - Oxygen prn #Acute on chronic non anion gap metabolic acidosis, improving Possibly renal tubular acidosis (Type 1 vs 2) versus intermittent diarrhea (which patient has every other week per family) via colostomy bag. Serum bicarb 14.6, baseline 17.5-19. ABG pH 7.38, pCO2 25, HCO3 15. Sodium 132, potassium WNL. Urine pH previously 8.0 on 10/22, now 6.0. 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 Urine calcium <1, more likely type 2. Does not take bicarb supplement at home. Of note, capecitabine in rare cases can cause RTA. S/p 1L NS bolus in ED. Plan: - S/p sodium bicarb 50 mEq x1 - Consider starting bicarb supplementation if continue to decline - CTM labs #Chronic anemia, normocytic/borderline macrocytic Previously admitted 10/22-10/24 for acute on chronic anemia, likely multifactorial in setting of post menopausal bleeding, metastatic colon cancer, and STONE. Denies hematuria or bleeding anywhere at this time. Iron panel 10/23 shows low iron and ferritin, indicative of STONE, also possibly ACD in setting of CKD. Medications include ferrous sulfate 325mg every other day. Folate and B12 10/23 was 7.31 and 666 respectively. Plan: - Hold iron in setting of active infection - CTM Hgb - Transfuse if Hgb <7 #IDDM2 with neuropathy Home meds include insulin glargine 20 units nightly and gabapentin 300 mg daily. A1c 11/26 5.6. - Start degludec 8 units nightly - SSI sensitive - Accu-checks - Target blood sugar 140-180 inpatient - Continue gabapetin 300 mg daily #Weakness Normally ambulatory at home with walker and independent with most ADLs. Has been very weak as of late with increased falls. - PT consulted: has adequate family support, refused home health PT #THOMAS, resolved #CKD stage IIIB Baseline GFR low in high 30s to low 40s. On admission, creatinine 1.3, baseline 1.2-1.3. Mildly increased to 1.4 s/p CT abdomen pelvis with contrast on 12/07, required for visualization of possible pelvic abscess at that time. S/p IV fluid resuscitation. Plan: -CTM renal panel -Encourage oral hydration -Avoid nephrotoxic drugs -Renally dose medications as needed #HTN #HLD Lipid panel 11/27: trig 155, cholesterol 90, LDL 43, HDL 16. - Continue home carvedilol and nifedipine - CTM BP Health Maintenance Disposition: med tele DVT prophylaxis: SCDs GI prophylaxis: none needed Diet: carb consistent CODE STATUS: FULL Patient plan of care was discussed with the resident, Dr. Ledesma, and attending physician, Dr. Arnett. Radha Clayton, PGY-1 Attending Provider Attestation/Addendum I have discussed and was present for the essential components of the history, physical examination, diagnosis, and treatment plan with the resident. I agree with the patient's care as documented by the resident and amended herein by me. Kristian Arnett DO. Although this document has been carefully reviewed, there may still be some phonetic and other typographical errors. These errors are purely grammatical due to imperfections in the software program and should not be construed in any way to compromise the substance of the patient's medical care during this visit.
[2024-12-02] MEDS: NIFEdipine XL 30 MG TABCR PO (21:20)
[2024-12-02] MEDS: INSULIN DEGLUDEC 5 UNIT/0.05 ML (PER 5 UNITS) 8 UNIT SC (21:24)
[2024-12-03] VITALS: BP 125/62; PULSE 80; RESP 16; TEMP 37; O2SAT 93
[2024-12-03 00:29] VITALS: PULSE 90
[2024-12-03 04:00] VITALS: BP 125/60; PULSE 85; PULSE 87; RESP 16; TEMP 36.9; O2SAT 95
[2024-12-03 05:52] LABS: Basophils # (Auto) 0.1 Thou/mm3 (0.0-0.2); Basophils % (Auto) 0 % (0-2.5); Eosinophils # (Auto) 0.1 Thou/mm3 (0.0-0.5); Eosinophils % (Auto) 0 % (0-10); Hematocrit 22.8 % (36.0-46.0); Immature Granulocytes Auto 0.29 Thou/mm3 (0.00-0.00); Lymphocytes # (Auto) 2.2 Thou/mm3 (1.0-4.8); Lymphocytes % (Auto) 11 % (10-50); Mean Corpuscular HGB Conc 34.2 g/dl (31.0-37.0); Mean Corpuscular Hemoglobin 33.5 pg (25.0-35.0); Mean Corpuscular Volume 98 fL (80-100); Monocytes # (Auto) 0.6 Thou/mm3 (0.0-0.8); Monocytes % (Auto) 3 % (0-12); Neutrophils # (Auto) 17.0 Thou/mm3 (1.8-7.7); Neutrophils % (Auto) 84 % (37-80); Nucleated Red Blood Cell # 0.00 Thou/mm3 (0.00-0.00); Nucleated Red Blood Cell % 0 /100 WBC (0); RDW Standard Deviation 60.0 fL (36.4-46.3); Red Blood Count 2.33 Miln/mm3 (4.00-5.20); White Blood Count 20.2 Thou/mm3 (3.6-11.0)
[2024-12-03 06:02] LABS: Hemoglobin 7.8 g/dL (12.0-16.0)
[2024-12-03 06:05] LABS: Anion Gap 8 (7-16); BUN/Creatinine Ratio 15 Ratio (12-20); Blood Urea Nitrogen 18 mg/dL (9-23); Calcium 8.3 mg/dL (8.3-10.6); Carbon Dioxide 16.3 mMol/L (20.0-31.0); Chloride 106 mMol/L (98-107); Creatinine (Component) 1.2 mg/dL (0.6-1.3); Estimated Creatinine Clearance 29.0 mL/min (>60); Glucose 119 mg/dL (74-106); Osmolality,Calculated 263 (275-295); Potassium 5.0 mMol/L (3.4-5.1); Sodium 130 mMol/L (136-145); eGFR 46 See Note
[2024-12-03 06:28] LABS: Platelet Count 347 Thou/mm3 (140-440)
[2024-12-03 08:00] VITALS: BP 119/59; PULSE 86; RESP 18; TEMP 36.9; O2SAT 96
[2024-12-03 09:39] VITALS: BP 119/59; PULSE 86
[2024-12-03] MEDS: GABAPENTIN 300 MG CAPSULE PO (09:39)
[2024-12-03] MEDS: LEVOFLOXACIN 250 MG TABLET 500 MG PO (09:39)
[2024-12-03] MEDS: CAPECITABINE 500 MG PO (09:40)
[2024-12-03 12:00] VITALS: BP 102/69; PULSE 84; PULSE 86; RESP 16; TEMP 36.7; O2SAT 91
[2024-12-03] MEDS: INSULIN LISPRO (AdmeLOG) 1 UNIT/0.01 ML UNIT SC (12:01)
--- NOTE | 2024-12-03 12:56 | PD.IDPROG ---
Subjective Subjective Interval history: micro noted. gram stain neg but a gnr is growing from cx done 12/01 Exam Vital Signs Temp Pulse Resp BP Pulse Ox O2 Del Method O2 Flow Rate 98.5 F 86 18 119/59 L 96 Room Air 2 12/03/24 08:00 12/03/24 09:39 12/03/24 08:00 12/03/24 09:39 12/03/24 08:00 12/03/24 08:00 12/03/24 08:00 Narrative Exam on po rx. if catheter can be managed as outpt. then home rx ok with ks Objective - Internal Medicine Labs 12/03/24 05:31 12/03/24 05:31 Labs: Laboratory Results - last 24 hr 12/03/24 05:31 WBC 20.2 H RBC 2.33 L Hgb 7.8 L Hct 22.8 L MCV 98 MCH 33.5 MCHC 34.2 RDW Std Deviation 60.0 H Plt Count 347 D Neut % (Auto) 84 H Lymph % (Auto) 11 [place] % (Auto) 3 Eos % (Auto) 0 Baso % (Auto) 0 Neut # (Auto) 17.0 H Lymph # (Auto) 2.2 [place] # (Auto) 0.6 Eos # (Auto) 0.1 Baso # (Auto) 0.1 Immature Gran # (Auto) 0.29 H Absolute Nucleated RBC 0.00 Immature Gran % 1 H Nucleated RBC % 0 Sodium 130 L Potassium 5.0 Chloride 106 Carbon Dioxide 16.3 L Anion Gap 8 BUN 18 Creatinine 1.2 Estim Creat Clear Calc 29.0 L eGFR 46 L BUN/Creatinine Ratio 15 Glucose 119 H D Calculated Osmolality 263 L Calcium 8.3 ABG Interpretation ABG results: 11/26/24 12/02/24 11:08 12:14 ABG pH 7.38 ABG pCO2 25 L ABG pO2 85 ABG HCO3 15 L ABG O2 Saturation 97 ABG Base Excess -10 L VBG pH 7.38 VBG pCO2 30 L VBG pO2 77 H VBG Base Excess -7 L Assessment & Plan A&P Narrative uti w/o bacteremia different germ in bc uti treated. no esbl this time no pneumonia metastatic CA in a full code at 79 yoa abd absccess, drained and cx with gnr all po regimen of levaquin and flagyl ok pending micro datat ok to have discussion about goals of care with her and any other decision makers as she is 79 yoa and has CA can see again Sunday if still here. home ok with me when and if able. Time Spent With Patient Time: Total time spent is greater than 50% in coordination of care (as documented) at patient's floor/unit and/or counseling patient:
--- NOTE | 2024-12-03 12:58 | ESDS_ITS ---
Planned Discharge Date 12/03/24 DS: Providers Provider Date of admission: 11/26/24 13:30 Primary care physician: Radha Cristobal PA-C Admitting Provider: Isaiah Mann MD Attending Provider on Admission: Claus Arnett DO Consults: 11/26/24 13:53 Referral Physical Therapy Routine Comment: Physician Instructions: 11/27/24 15:42 Consult to Urology Routine Comment: C/f bladder fistula versus abscess Consulting Provider: Ana María Anton 11/28/24 06:00 Consult to Infectious Diseases Routine Comment: worse leuk, purulent drain via Nixon, poss absc Consulting Provider: Ken Velez 12/01/24 06:00 Consult to Oncology Routine Comment: met colon CA w new rectsig mass Consulting Provider: Jorge Lisa Attending Provider on DC: Claus Arnett DO Discharging Provider: Radha Clayton DO DS: Diagnosis Problem List Completed Was Problem List Reviewed/Reconciled?: Yes Hospital Course Hospital Course Hospital course: Summary: Patient is an 79-year-old female with past medical history of metastatic colon cancer s/p chemoradiation (CAPOX chemo), colectomy with colostomy (08/2023), CKD, IDDM2 w/ neuropathy, hypertension, hyperlipidemia, and anemia who presented on 11/26/24 with generalized weakness s/p fall yesterday, admitted for complicated ESBL UTI. ID was consulted and treated with levofloxacin, recommended reduced dose in setting of poor renal function. Of note, patient developed urinary retention on first day of admission, upon placement of Nixon on 11/28, drained purulent fluid prompting imaging with contra st for investigation of suspected pelvic abscess or fistula. Was found to have an abscess and progression of pulmonary metastasis, with enlargement of rectal mass. Abscess was drained via CT catheter drainage and metronizadole was added for anaerobic coverage. Urologist was consulted and recommended keeping Nixon for 1 week before attempting voiding trial. Patient and family were given clear instructions on Nixon catheter care and close follow up with PCP for voiding trials in a few days. During stay patient had persistent leukocytosis and electrolyte abnormalities, likely secondary to cancer and metastasis. Started on sodium bicarbonate for RTA likely developed due to side effect of chemotherapy treatment. In light of progressive cancer, recommended that patient follow up with oncologist Dr. Lisa to start IV chemo treatment. Upon evaluation, PT recommended home health but family reported that they have adequate family support at home. Patient was safely discharged home with anti biotics and new medications listed below. ED Course: -Initial vitals were BP 126/69, HR 91, RR 19, afebrile, 97% on room air -Labs significant for WBC 27.6, hemoglobin 8.6. Sodium 132, bicarb 14.6, anion gap 10, BUN 25, creatinine 1.3, procalcitonin 0.61. UA is positive for nitrates and leukocyte esterase, 3+ blood, RBC 68, WBC 91, bacteria rare. -Imaging included chest x-ray shows bibasilar pneumonia. Chest CT shows progression of pulmonary nodular metastatic disease and left base pneumonia. Bilateral knee x-ray negative for fractures. -In the ED, patient was given IV ceftriaxone x 1, azithromycin x 1, 1 L NS bolus, [place] x 1. Discharge Recommendations: Please complete antibiotic course for intra-abdominal abscess with Levofloxacin 500mg tablet once a day and Metronidazole 500mg tablet twice a day for 2 more days Keep Nixon cathether for urine drainage - ask your PCP to do voiding trial or refer to a urologist Hold lisinopril 40mg tablet until you are seen by your PCP Please take sodium bicarbonate 325mg tablets twice a day for metabolic acidosis without anion-gap Continue all other home medications Please follow-up with Dr. Lisa for your metastatic colon cancer diagnosis Please follow-up with your PCP within 1 week or follow-up at the [facility] [address] [place] [address] If your symptoms worsen or if you develop new chest pain, shortness of breath, severe abdominal pain or bleeding - please come back to the ED immediately. 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 #Acute on chronic non anion gap metabolic acidosis, improving #Chronic anemia, normocytic/borderline macrocytic #IDDM2 with neuropathy #Weakness #THOMAS, resolved #CKD stage IIIB #HTN #HLD Disposition: Safe discharge to home. Patient plan of care was discussed with the attending physician, Dr. Arnett. Radha Clayton, PGY-1 Time Spent with Patient Time attestation: Total time spent providing and/or coordinating discharge services: Time spent: Greater than 30 minutes Exam Vital Signs Temp Pulse Resp BP Pulse Ox O2 Del Method O2 Flow Rate 98.5 F 84 18 119/59 L 96 Room Air 2 12/03/24 08:00 12/03/24 12:00 12/03/24 08:00 12/03/24 09:39 12/03/24 08:00 12/03/24 08:00 12/03/24 08:00 Narrative Exam Physical Exam General: Awake and in no acute distress. Conversational. Cachectic. HEENT: Normocephalic, atraumatic, mucous membranes moist. Heart: Regular rate and rhythm, normal S1 and S2, no murmurs appreciated. Lungs: CTAB. Abdomen: Soft, nondistended, nontender, positive bowel sounds. No guarding or rebound tenderness. LLQ colostomy bag with some watery light brown stool, no visible blood. Site clean and intact. : Nixon in place, draining well. Yellow colored urine, no clots observed. Neurologic: Alert and oriented x3, no gross neurological deficit, and patient able to move all 4 extremities. Extremities: No edema. Skin: No rash or ecchymoses. Discharge Plan Plan Patient Disposition: HOME (Self Care) Patient condition on transfer: Stable Care Plan Goals: Please complete antibiotic course for intra-abdominal abscess with Levofloxacin 500mg tablet once a day and Metronidazole 500mg tablet twice a day for 2 more days Keep Nixon cathether for urine drainage - ask your PCP to do voiding trial or refer to a urologist Hold lisinopril 40mg tablet until you are seen by your PCP Please take sodium bicarbonate 325mg tablets twice a day for metabolic acidosis without anion-gap Continue all other home medications Please follow-up with Dr. Lisa for your metastatic colon cancer diagnosis Please follow-up with your PCP within 1 week or follow-up at the [facility] [address] [place] [address] If your symptoms worsen or if you develop new chest pain, shortness of breath, severe abdominal pain or bleeding - please come back to the ED immediately. Prescriptions/Referrals Prescriptions/Med Rec: New metronidazole 500 mg tablet 500 mg PO BID 2 Days Qty: 4 0RF levofloxacin 500 mg tablet 500 mg PO QDAY 2 Days Qty: 2 0RF sodium bicarbonate 325 mg tablet 325 mg PO BID 30 Days Qty: 60 0RF Continued nifedipine 30 mg tablet extended release 30 mg PO HS carvedilol 3.125 mg tablet 3.125 mg PO BID gabapentin 300 mg capsule 300 mg PO Q12H capecitabine 500 mg tablet 1,000 mg PO BID ferrous sulfate [FeroSul] 325 mg (65 mg iron) tablet 325 mg PO Q OTHER DAY Qty: 30 0RF insulin glargine [Basaglar KwikPen U-100 Insulin] 100 unit/mL (3 mL) insulin pen 20 unit subcut QPM Held lisinopril 40 mg tablet 40 mg PO DAILY Hold Instructions: Resume on 12/10/24. Hold until you are seen by your PCP Referrals: Radha Cristobal PA-C [Primary Care Provider, Emergency Medicine] Patient/Caregiver Discharge Instructions Education Materials: Urinary Tract Infections in Women, Understanding Urinary Tract ..., When to Use Antibiotics Print Language: Tamazight Stand Alone Forms: Lily Award Info., Patient Portal Info Letter Discharge Order Discharge Orders: Discharge (Routine); Ordered 12/03/24 Ordered By: Radha Clayton Quality Discharge Quality Measures VTE prophylaxis Attestestation MD Attestation I have discussed and was present for the essential components of the discharge history, physical examination, diagnosis, and discharge treatment plan with the resident. I agree with the patient's discharge care as documented by the resident and amended herein by me. Kristian Arnett DO. The patient understood all discharge instructions, all questions were answered satisfactorily. The patient was instructed to return to the Emergency Department is symptoms worsened or persisted. Although this document has been carefully reviewed, there may still be some phonetic and other typographical errors. These errors are purely grammatical due to imperfections in the software program and should not be construed in any way to compromise the substance of the patient's medical care during this visit.
== END 2024-12-03 13:35 | disposition home or self-care (01) | DRG 463 ==
LOC: SERX 12:55 → SERHOLD 14:39 → S3NX 15:02
PROVIDERS: Nurse Practitioner Primary Care; Radiology Diagnostic Radiology; Admitting Provider Student in an Organized Health Care Education/Training Program; Emergency Provider Emergency Medicine; PCP Physician Assistant; Visit Provider Student in an Organized Health Care Education/Training Program
DX: N39.0 Urinary tract infection, site not specified (principal); C18.9 Malignant neoplasm of colon, unspecified; J18.9 Pneumonia, unspecified organism; Z93.3 Colostomy status; Z90.49 Acquired absence of other specified parts of digestive tract; E87.20 Acidosis, unspecified; E87.5 Hyperkalemia; I12.9 Hypertensive chronic kidney disease with stage 1 through stage 4 chronic kidney disease, or unspecified chronic kidney disease; E11.22 Type 2 diabetes mellitus with diabetic chronic kidney disease; E78.5 Hyperlipidemia, unspecified; Z92.3 Personal history of irradiation; Z92.21 Personal history of antineoplastic chemotherapy; E11.21 Type 2 diabetes mellitus with diabetic nephropathy; B96.20 Unspecified Escherichia coli [E. coli] as the cause of diseases classified elsewhere; C78.00 Secondary malignant neoplasm of unspecified lung; E11.40 Type 2 diabetes mellitus with diabetic neuropathy, unspecified; N17.9 Acute kidney failure, unspecified; N18.32 Chronic kidney disease, stage 3b; Z16.12 Extended spectrum beta lactamase (ESBL) resistance; N73.9 Female pelvic inflammatory disease, unspecified; Z79.4 Long term (current) use of insulin; Z87.440 Personal history of urinary (tract) infections; E87.4 Mixed disorder of acid-base balance; N39.490 Overflow incontinence; K52.9 Noninfective gastroenteritis and colitis, unspecified; Z79.899 Other long term (current) drug therapy; Z85.038 Personal history of other malignant neoplasm of large intestine; D84.9 Immunodeficiency, unspecified
CPT/HCPCS: 36415; 36600; 71046; 71250; 73564; 74177; 75989; 76857; 80048; 80053; 80061; 81001; 82140; 82340; 82436; 82607; 82746; 82803; 83036; 83605; 83735; 84133; 84145; 84300; 84484; 85025; 85379; 85610; 85730; 87040; 87070; 87075; 87077; 87081; 87086; 87186; 87205; 87400; 87811; 93005; 93225; 96365; 96366; 96372; 97162; 99284; A4649; C1729; J0456; J0696; J1644; J1815; J2543; J3010; J3475; J3490; J7030; J7050; J7120; Q9967; A9270; J1836

== ENCOUNTER → 2024-12-04 | Outpatient (CLI) | payer MEDICAID, SELFPAY ==
--- NOTE | 2024-12-04 11:30 | XR_ITS ---
Examination: CT chest with intravenous contrast CT abdomen with intravenous contrast CT pelvis with intravenous contrast CT chest without intravenous contrast CT abdomen without intravenous contrast CT pelvis without intravenous contrast 2-D coronal and sagittal reconstructions Time of exam: December 04, 2024, 1222 hours, comparison CT abdomen pelvis 11/28/2024, CT chest 11/26/2024, MRI pelvis October 24, 2024, CT chest abdomen pelvis July 10, 2024 INDICATIONS: Diagnosis rectosigmoid tumor, generalized abdominal pain constipation beginning 3 days ago CTDI: vol (mGy) : 14.6 DLP: (mGycm): 1023 Technique: Multiple axial images of the chest, abdomen and pelvis with intravenous contrast, 3.0 mm slice thickness. Images obtained pre-post intravenous injection Isovue 370 60 cc. 2-D sagittal and coronal reconstructions. Low dose protocols were performed. One or more of the following dose reduction techniques were used; automated exposure control, adjustment of the mA and/or KV according to patient size, use of iterative reconstruction technique. Findings: Right internal jugular Port-A-Cath satisfactory position Stable 14 mm right tracheobronchial lymph node compared with 11/26/2024 Stable bilateral metastatic pulmonary nodules compared to CT chest when week ago No interval liver or splenic lesion Common bile duct 6 mm no stones No pancreatic mass Stable abdominal lymphadenopathy compared with 11/28/2024 Fluid distended right colon Ileostomy Smaller abscess posterior to the uterus, 3.5 cm compared to 5.0 cm on November 28, 2024 Urinary Nixon catheter No change in large rectosigmoid tumor mass and compared with 11/28/2024 IMPRESSION: Stable mediastinal adenopathy and extensive pulmonary nodular metastatic disease compared with CT chest 11/26/2024 Stable abdominal lymphadenopathy compared with 11/28/2024 Smaller pelvic abscess, 3.5 cm compared to 5.[address] abdomen pelvis study 11/28/2024
== END | disposition home or self-care (01) ==
LOC: CCTX 11:00
PROVIDERS: Referring Provider Internal Medicine Hematology & Oncology; Visit Provider Internal Medicine Hematology & Oncology
DX: R59.0 Localized enlarged lymph nodes (principal); N73.9 Female pelvic inflammatory disease, unspecified; C20 Malignant neoplasm of rectum
CPT/HCPCS: 71270; 74178; A4649; Q9967

== ENCOUNTER 2024-12-08 11:20 | Outpatient (RCR) | payer MEDICAID, SELFPAY ==
[2024-12-05 11:12] LABS: Basophils # (Auto) 0.0 Thou/mm3 (0.0-0.2); Basophils % (Auto) 0 % (0-2.5); Eosinophils # (Auto) 0.0 Thou/mm3 (0.0-0.5); Eosinophils % (Auto) 0 % (0-10); Immature Granulocytes Auto 0.12 Thou/mm3 (0.00-0.00); Lymphocytes # (Auto) 1.3 Thou/mm3 (1.0-4.8); Lymphocytes % (Auto) 8 % (10-50); Mean Corpuscular HGB Conc 34.5 g/dl (31.0-37.0); Mean Corpuscular Hemoglobin 33.8 pg (25.0-35.0); Mean Corpuscular Volume 98 fL (80-100); Monocytes # (Auto) 0.6 Thou/mm3 (0.0-0.8); Monocytes % (Auto) 4 % (0-12); Neutrophils # (Auto) 15.2 Thou/mm3 (1.8-7.7); Neutrophils % (Auto) 88 % (37-80); Nucleated Red Blood Cell # 0.00 Thou/mm3 (0.00-0.00); Nucleated Red Blood Cell % 0 /100 WBC (0); Platelet Count 337 Thou/mm3 (140-440); RDW Standard Deviation 62.3 fL (36.4-46.3); Red Blood Count 2.04 Miln/mm3 (4.00-5.20); White Blood Count 17.3 Thou/mm3 (3.6-11.0)
[2024-12-05 11:32] LABS: Carcinoembryonic Antigen 20.7 ng/mL (0.0-5.0)
[2024-12-05 11:38] LABS: Hematocrit 20.0 % (36.0-46.0); Hemoglobin 6.9 g/dL (12.0-16.0)
[2024-12-05 11:40] LABS: Alanine Aminotransferase 9 U/L (10-49); Albumin, Serum 2.8 gm/dL (3.4-4.8); Albumin/Globulin Ratio 1.2 (1.2-2.2); Alkaline Phosphatase 74 U/L (46-116); Anion Gap 9 (7-16); Aspartate Amino Transferase 42 U/L (0-34); BUN/Creatinine Ratio 18 Ratio (12-20); Bilirubin,Total 0.4 mg/dL (0.3-1.2); Blood Urea Nitrogen 28 mg/dL (9-23); Calcium 8.2 mg/dL (8.3-10.6); Calcium (Corrected) 9.2 mg/dL (8.5-10.1); Carbon Dioxide 17.2 mMol/L (20.0-31.0); Chloride 103 mMol/L (98-107); Creatinine (Component) 1.6 mg/dL (0.6-1.3); Globulin 2.3 gm/dL (2.3-3.5); Glucose 229 mg/dL (74-106); Osmolality,Calculated 271 (275-295); Potassium 5.0 mMol/L (3.4-5.1); Sodium 129 mMol/L (136-145); Total Protein 5.1 gm/dL (5.7-8.2); eGFR 32 See Note
[2024-12-05 11:47] LABS: Path Review Blood Smear Sent to Pathologist
== END 2024-12-09 23:59 | disposition home or self-care (01) ==
LOC: SCTC 11:20
PROVIDERS: PCP Physician Assistant; Referring Provider Physician Assistant; Visit Provider Internal Medicine Hematology & Oncology
DX: C20 Malignant neoplasm of rectum (principal); N39.0 Urinary tract infection, site not specified; R91.1 Solitary pulmonary nodule; Z90.49 Acquired absence of other specified parts of digestive tract
CPT/HCPCS: 36591; 80053; 82378; 85025; 99212; A4216; J1642; G0463

== ENCOUNTER 2025-01-05 07:53 | Outpatient (RCR) | payer MEDICAID, SELFPAY ==
[2024-12-19 10:22] LABS: Misc Send Out* See Sep Rpt
[2024-12-19 10:42] LABS: Basophils # (Auto) 0.1 Thou/mm3 (0.0-0.2); Basophils % (Auto) 0 % (0-2.5); Eosinophils # (Auto) 0.2 Thou/mm3 (0.0-0.5); Eosinophils % (Auto) 1 % (0-10); Hematocrit 26.9 % (36.0-46.0); Hemoglobin 9.1 g/dL (12.0-16.0); Immature Granulocytes Auto 0.16 Thou/mm3 (0.00-0.00); Lymphocytes # (Auto) 1.7 Thou/mm3 (1.0-4.8); Lymphocytes % (Auto) 6 % (10-50); Mean Corpuscular HGB Conc 33.8 g/dl (31.0-37.0); Mean Corpuscular Hemoglobin 33.0 pg (25.0-35.0); Mean Corpuscular Volume 98 fL (80-100); Monocytes # (Auto) 1.5 Thou/mm3 (0.0-0.8); Monocytes % (Auto) 6 % (0-12); Neutrophils # (Auto) 22.7 Thou/mm3 (1.8-7.7); Neutrophils % (Auto) 86 % (37-80); Nucleated Red Blood Cell # 0.00 Thou/mm3 (0.00-0.00); Nucleated Red Blood Cell % 0 /100 WBC (0); Platelet Count 362 Thou/mm3 (140-440); RDW Standard Deviation 63.0 fL (36.4-46.3); Red Blood Count 2.76 Miln/mm3 (4.00-5.20); White Blood Count 26.2 Thou/mm3 (3.6-11.0)
[2024-12-19 10:49] LABS: Alanine Aminotransferase 9 U/L (10-49); Albumin, Serum 3.5 gm/dL (3.4-4.8); Albumin/Globulin Ratio 1.1 (1.2-2.2); Alkaline Phosphatase 106 U/L (46-116); Anion Gap 11 (7-16); Aspartate Amino Transferase 20 U/L (0-34); BUN/Creatinine Ratio 14 Ratio (12-20); Bilirubin,Total 0.6 mg/dL (0.3-1.2); Blood Urea Nitrogen 17 mg/dL (9-23); Calcium 8.9 mg/dL (8.3-10.6); Calcium (Corrected) 9.3 mg/dL (8.5-10.1); Carbon Dioxide 21.3 mMol/L (20.0-31.0); Carcinoembryonic Antigen 24.3 ng/mL (0.0-5.0); Chloride 103 mMol/L (98-107); Creatinine (Component) 1.2 mg/dL (0.6-1.3); Globulin 3.1 gm/dL (2.3-3.5); Glucose 106 mg/dL (74-106); Osmolality,Calculated 271 (275-295); Potassium 4.2 mMol/L (3.4-5.1); Sodium 135 mMol/L (136-145); Total Protein 6.6 gm/dL (5.7-8.2); eGFR 46 See Note
[2025-01-02 11:19] LABS: Basophils # (Auto) 0.0 Thou/mm3 (0.0-0.2); Basophils % (Auto) 0 % (0-2.5); Eosinophils # (Auto) 0.1 Thou/mm3 (0.0-0.5); Eosinophils % (Auto) 1 % (0-10); Hematocrit 21.7 % (36.0-46.0); Immature Granulocytes Auto 0.05 Thou/mm3 (0.00-0.00); Lymphocytes # (Auto) 1.5 Thou/mm3 (1.0-4.8); Lymphocytes % (Auto) 16 % (10-50); Mean Corpuscular HGB Conc 33.6 g/dl (31.0-37.0); Mean Corpuscular Hemoglobin 32.2 pg (25.0-35.0); Mean Corpuscular Volume 96 fL (80-100); Monocytes # (Auto) 0.9 Thou/mm3 (0.0-0.8); Monocytes % (Auto) 9 % (0-12); Neutrophils # (Auto) 7.0 Thou/mm3 (1.8-7.7); Neutrophils % (Auto) 74 % (37-80); Nucleated Red Blood Cell # 0.00 Thou/mm3 (0.00-0.00); Nucleated Red Blood Cell % 0 /100 WBC (0); Platelet Count 287 Thou/mm3 (140-440); RDW Standard Deviation 55.2 fL (36.4-46.3); Red Blood Count 2.27 Miln/mm3 (4.00-5.20); White Blood Count 9.5 Thou/mm3 (3.6-11.0)
[2025-01-02 11:37] LABS: Alanine Aminotransferase 15 U/L (10-49); Albumin, Serum 3.6 gm/dL (3.4-4.8); Albumin/Globulin Ratio 1.6 (1.2-2.2); Alkaline Phosphatase 105 U/L (46-116); Anion Gap 12 (7-16); Aspartate Amino Transferase 26 U/L (0-34); BUN/Creatinine Ratio 16 Ratio (12-20); Bilirubin,Total 0.4 mg/dL (0.3-1.2); Blood Urea Nitrogen 18 mg/dL (9-23); Calcium 8.5 mg/dL (8.3-10.6); Calcium (Corrected) 8.8 mg/dL (8.5-10.1); Carbon Dioxide 19.7 mMol/L (20.0-31.0); Chloride 102 mMol/L (98-107); Creatinine (Component) 1.1 mg/dL (0.6-1.3); Globulin 2.3 gm/dL (2.3-3.5); Glucose 99 mg/dL (74-106); Osmolality,Calculated 270 (275-295); Potassium 4.3 mMol/L (3.4-5.1); Sodium 134 mMol/L (136-145); Total Protein 5.9 gm/dL (5.7-8.2); eGFR 51 See Note
[2025-01-02 11:39] LABS: Carcinoembryonic Antigen 17.6 ng/mL (0.0-5.0)
[2025-01-02 12:20] LABS: Hemoglobin 7.3 g/dL (12.0-16.0)
[2025-01-05 09:07] LABS: Hematocrit 21.1 % (36.0-46.0)
[2025-01-05 09:26] LABS: Hemoglobin 7.1 g/dL (12.0-16.0)
== END 2025-01-09 23:59 | disposition home or self-care (01) ==
LOC: SCTC 07:53
PROVIDERS: PCP Physician Assistant; Referring Provider Physician Assistant; Visit Provider Internal Medicine Hematology & Oncology
DX: Z51.11 Encounter for antineoplastic chemotherapy (principal); C19 Malignant neoplasm of rectosigmoid junction; C78.00 Secondary malignant neoplasm of unspecified lung; Z90.49 Acquired absence of other specified parts of digestive tract; N39.0 Urinary tract infection, site not specified; B96.20 Unspecified Escherichia coli [E. coli] as the cause of diseases classified elsewhere; Z96.0 Presence of urogenital implants
CPT/HCPCS: 36591; 80053; 81232; 82378; 85014; 85018; 85025; 86850; 86900; 86901; 96367; 96368; 96411; 96413; 96415; 96416; 96523; A4216; J0640; J1100; J1642; J2469; J3490; J7050; J7060; J9190; J9263; A9270

== ENCOUNTER 2025-01-05 10:09 | Emergency (ER) | payer MEDICAID, SELFPAY ==
[2025-01-05] VITALS (15 sets, daily range): BP systolic 112–135; BP diastolic 58–97; PULSE 65–89; RESP 16–100; TEMP 36.4–37.2; O2SAT 99–100; BMI 22.8
--- NOTE | 2025-01-05 10:26 | PD.EDRME ---
Rapid Medical Screening Exam RME Arrival date/time: 01/05/25 10:09 79-year-old female with a history of hypertension, type 2 diabetes, colon cancer that is getting treated at the [facility] [place] with chemotherapy presents to the emergency room with a chief complaint of weakness, fatigue and a low hemoglobin level. Patient had blood work completed this morning at the [facility] and her hemoglobin was 7.1. They were unable to do chemotherapy due to her weakness. I have greeted and performed a focused initial assessment of this patient. A comprehensive ED assessment and evaluation of the patient, analysis of all test results, and completion of the medical decision making process will be conducted by additional ED providers. Chief Complaint: Weakness Vital signs: Vital Signs Temperature 98.5 F 01/05/25 10:19 Pulse Rate 89 01/05/25 10:19 Respiratory Rate 18 01/05/25 10:19 Blood Pressure 115/69 01/05/25 10:19 Pulse Oximetry (%) 99 01/05/25 10:19 Oxygen Delivery Method Room Air 01/05/25 10:19 Vital signs reviewed by provider: Yes Exam: Clear bilateral lung sounds Soft nontender abdomen Patient is a GCS of 15 she is alert and oriented x 3. Patient has fatigue weakness Clinical Impression: Anemia/weakness
[2025-01-05 11:04] LABS: Basophils # (Auto) 0.0 Thou/mm3 (0.0-0.2); Basophils % (Auto) 1 % (0-2.5); Eosinophils # (Auto) 0.1 Thou/mm3 (0.0-0.5); Eosinophils % (Auto) 1 % (0-10); Hematocrit 23.6 % (36.0-46.0); Immature Granulocytes Auto 0.02 Thou/mm3 (0.00-0.00); Lymphocytes # (Auto) 1.4 Thou/mm3 (1.0-4.8); Lymphocytes % (Auto) 23 % (10-50); Mean Corpuscular HGB Conc 33.5 g/dl (31.0-37.0); Mean Corpuscular Hemoglobin 32.6 pg (25.0-35.0); Mean Corpuscular Volume 98 fL (80-100); Monocytes # (Auto) 0.8 Thou/mm3 (0.0-0.8); Monocytes % (Auto) 13 % (0-12); Neutrophils # (Auto) 3.6 Thou/mm3 (1.8-7.7); Neutrophils % (Auto) 61 % (37-80); Nucleated Red Blood Cell # 0.00 Thou/mm3 (0.00-0.00); Nucleated Red Blood Cell % 0 /100 WBC (0); Platelet Count 337 Thou/mm3 (140-440); RDW Standard Deviation 58.0 fL (36.4-46.3); Red Blood Count 2.42 Miln/mm3 (4.00-5.20); White Blood Count 5.8 Thou/mm3 (3.6-11.0)
--- NOTE | 2025-01-05 11:09 | PC.NURSE ---
PATIENT SENT BY CTC FOR BLOOD TRANSFUSION. PER PATIENT AND DAUGHTER AT BEDSIDE PATIENT WAS ADMITTED TO HOSPITAL ABOUT A MONTH AGO FOR UTI. PATIENT HAD NASSAR PLACED ON LAST ADMISSION. PATIENT HAS HISTORY OF RECTAL CANCER AND REQUIRES BLOOD TRANSFUSIONS AT LEAST ONCE A MONTH. PER DAUGHTER AT BEDSIDE REQUESTING NASSAR CATHETER TO BE CHANGED SINCE PATIENT HAS NOT HAD IT CHANGED SINCE SHE WAS IN THE HOSPITAL. PATIENT WAS DIAGNOSED WITH UTI RECENTLY AGAIN. PATIENT TAKING AMOXICILLIN BID PRESCRIBED BY PCP.
[2025-01-05 11:21] LABS: Alanine Aminotransferase 9 U/L (10-49); Albumin, Serum 3.7 gm/dL (3.4-4.8); Albumin/Globulin Ratio 1.3 (1.2-2.2); Alkaline Phosphatase 94 U/L (46-116); Anion Gap 9 (7-16); Aspartate Amino Transferase 20 U/L (0-34); BUN/Creatinine Ratio 14 Ratio (12-20); Bilirubin,Total 0.6 mg/dL (0.3-1.2); Blood Urea Nitrogen 17 mg/dL (9-23); Calcium 9.1 mg/dL (8.3-10.6); Calcium (Corrected) 9.3 mg/dL (8.5-10.1); Carbon Dioxide 19.2 mMol/L (20.0-31.0); Chloride 104 mMol/L (98-107); Creatinine (Component) 1.2 mg/dL (0.6-1.3); Estimated Creatinine Clearance 26.9 mL/min (>60); Globulin 2.9 gm/dL (2.3-3.5); Glucose 118 mg/dL (74-106); INR 1.2 (0.9-1.3); Osmolality,Calculated 267 (275-295); Partial Thromboplastin Time 29.2 Seconds (22.0-36.0); Potassium 5.3 mMol/L (3.4-5.1); Prothrombin Time 12.4 Seconds (9.0-12.2); Sodium 132 mMol/L (136-145); Total Protein 6.6 gm/dL (5.7-8.2); eGFR 46 See Note
--- NOTE | 2025-01-05 11:25 | EKG_ITS ---
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
[2025-01-05 11:34] LABS: Hemoglobin 7.9 g/dL (12.0-16.0)
--- NOTE | 2025-01-05 14:01 | EDNOTE_ITS ---
ED General RME/HPI General Chief complaint: Weakness Stated complaint: FATIGUE, NEEDS BLOOD TRANSFUSION, SENT FROM [facility] Time Seen by Provider: 01/05/25 10:45 Arrival date/time: 01/05/25 10:09 Limitations: no limitations RME / HPI RME / HPI narrative: 01/05/25 10:09 79-year-old female with a history of hypertension, type 2 diabetes, colon cancer that is getting treated at the [facility] [place] with chemotherapy presents to the emergency room with a chief complaint of weakness, fatigue and a low hemoglobin level. Patient had blood work completed this morning at the [facility] and her hemoglobin was 7.1. They were unable to do chemotherapy due to her weakness. I have greeted and performed a focused initial assessment of this patient. A comprehensive ED assessment and evaluation of the patient, analysis of all test results, and completion of the medical decision making process will be conducted by additional ED providers. DR. MARQUES MAIN ED EVALUATION: 79 year old female with history of metastatic colon cancer s/p chemoradiation, colectomy with colostomy, anemia in CKD, hypertension, diabetes, hyperlipidemia presents to the ED referred by the [facility] [place] for further evaluation of low hemoglobin levels today. Per daughter, patient had labs performed earlier today and told her hemoglobin was 7.1. In the ED, patient complains of feeling globally fatigued. No shortness of breath. No fevers, chills, chest pain, cough, shortness of breath. Exam: Clear bilateral lung sounds Soft nontender abdomen Patient is a GCS of 15 she is alert and oriented x 3. Patient has fatigue weakness Impression: Anemia/weakness Related Data Home Medications ?Medication ?Instructions ?Recorded ?Confirmed capecitabine 500 mg tablet 1,000 mg PO BID 10/22/24 carvedilol 3.125 mg tablet 3.125 mg PO BID 10/22/24 gabapentin 300 mg capsule 300 mg PO Q12H 10/22/2411/10 lisinopril 40 mg tablet 40 mg PO DAILY 10/22/2411/10 Held on 12/03/24. Instructions: Resume on 12/10/24. Hold until you are seen by your PCP nifedipine 30 mg tablet,extended 30 mg PO HS 10/22/24 11/26/24 release insulin glargine 100 unit/mL (3 20 unit subcut QPM 11/26/24 mL) subcutaneous pen (Basaglar KwikPen U-100 Insulin) Previous Rx's ?Medication ?Instructions ?Recorded ferrous sulfate 325 mg (65 mg 325 mg PO Q OTHER DAY #3 0 tabs 10/24/24 iron) tablet (FeroSul) Allergies Allergy/AdvReac Type Severity Reaction Status Date / Time No Known Allergies Allergy Verified 01/05/25 10:12 Review of Systems Review of Systems Systems Reviewed: All systems reviewed, normal except as documented Past Medical History Past Medical History CARDIAC: Positive Hypertension GASTROINTESTINAL: Positive Colorectal Cancer GENITOURINARY: Positive Genitourinary Disorders and Renal Disease REPRODUCTIVE: Positive Previous Pregnancies MUSCULOSKELETAL: Positive Fractures (left hip fx) ENDOCRINE: Positive Diabetes Mellitus Type 2 HEMATOLOGIC: Positive Blood Disorders and Anemia OTHER HISTORY: Positive Blood Transfusions, Cancer (rectal ca) and Colorectal Cancer Family History FAMILY HISTORY: Negative Family Cancer, Family Surgery or Family Anesthesia Reaction Surgical History SURGICAL: Positive Abdominal Surgery Social History SMOKING STATUS: Never smoker ED Exam General Limitations: Present no limitations General appearance: Present alert and in no apparent distress Head Head exam: Present atraumatic, normocephalic and normal inspection Eye Eye exam: Present normal appearance, PERRL and EOMI ENT ENT exam: Present normal exam, normal oropharynx and mucous membranes moist Neck Neck exam: Present normal inspection, full ROM and trachea midline Chest Chest inspection: Present normal inspection and symmetric chest wall rise Respiratory Respiratory exam: Present normal lung sounds bilaterally Cardiovascular Cardiovascular exam: Present regular rate, normal rhythm and normal heart sounds Abdominal Exam Abdominal exam: Present soft, normal bowel sounds and other (colostomy on the left side that is functioning well) External exam: Present other (Notified by patients RN that while replacing the gorman catheter there was some redness. On examination in presence of female RN, there is superficial inflammation from the old gorman catheter to the right inner labia. ) Extremities Exam Extremities exam: Present normal inspection and full ROM Back Exam Back exam: Present normal inspection and full ROM Neurological Exam Neurological exam: Present alert, oriented X3 and CN II-XII intact Psychiatric Psychiatric exam: Present normal affect and normal mood Skin Skin exam: Present warm, dry, intact and normal color Course Quality Measures none Orders Category Date Time Status Marketing And Communications Officer NOW Care 01/05/25 11:25 Completed Continuous Pulse Oximetry NOW Care 01/05/25 11:25 Completed EKG (ED ONLY) *Do not use* NOW Care 01/05/25 11:25 Completed Gorman [Urinary Catheter, Remove] ONCE Care 01/05/25 11:35 Completed Gorman [Urinary Catheter] QS Care 01/05/25 11:35 Completed Insert IV NOW Care 01/05/25 11:25 Completed Transfuse,blood/blood products NOW Care 01/05/25 11:27 Completed EKG (ED Only) Stat Exams 01/05/25 11:25 Draft CBC Stat Lab 01/05/25 10:40 Completed CMP [Comprehensive Metabolic Panel] Stat Lab 01/05/25 10:40 Completed PT [Prothrombin Time with INR] Stat Lab 01/05/25 10:40 Completed PTT [Partial Thromboplastin Time] Stat Lab 01/05/25 10:40 Completed Packed Cells [Red Blood Cells] Stat Lab 01/05/25 10:40 Completed Type and Screen Stat Lab 01/05/25 10:40 Completed Heparin Sod Lock Syr [Hep-Lock 100 UNIT/ML SYR] Med 01/05/25 18:23 Discontinued 500 unit IV X1 ONE Prbcs Med 01/05/25 11:27 Discontinued 2 units IV X1 ONE Sodium Chloride 0.9% 1000 ml [Ns] 1,000 ml Med 01/05/25 11:25 Discontinued IV 30 mls/hr Oxygen Delivery NOW RT 01/05/25 11:25 Completed Vital Signs Vital signs: Vital Signs Temperature 98.5 F 01/05/25 10:19 Pulse Rate 89 01/05/25 10:19 Respiratory Rate 18 01/05/25 10:19 Blood Pressure 115/69 01/05/25 10:19 Pulse Oximetry (%) 99 01/05/25 10:19 Oxygen Delivery Method Room Air 01/05/25 10:19 Pulse ox is 99% on room air which is adequate. Discharge Plan Plan Patient Disposition: HOME (Self Care) Discharge Disposition comment: Stable Prescriptions/Referrals Prescriptions/Med Rec: No Action lisinopril 40 mg tablet 40 mg PO DAILY nifedipine 30 mg tablet extended release 30 mg PO HS carvedilol 3.125 mg tablet 3.125 mg PO BID gabapentin 300 mg capsule 300 mg PO Q12H capecitabine 500 mg tablet 1,000 mg PO BID ferrous sulfate [FeroSul] 325 mg (65 mg iron) tablet 325 mg PO Q OTHER DAY Qty: 30 0RF insulin glargine [Basaglar KwikPen U-100 Insulin] 100 unit/mL (3 mL) insulin pen 20 unit subcut QPM Referrals: Radha Cristobal PA-C [Primary Care Provider, Emergency Medicine] - In 1 week Problem List Clinical Impression: Symptomatic anemia, Cancer, metastatic Patient/Caregiver Discharge Instructions Discharge Activity: activity as tolerated Education Materials: Anemia During Cancer Additional Instructions: Follow-up for chemotherapy as planned. Return for worsening symptoms i.e. chest pain shortness of breath lightheadedness dizziness or general worse condition Print Language: Yakut Stand Alone Forms: Lily Award Info., Patient Portal Info Letter MDM Narrative Sign Out note: 1800: Patient signed out to Dr. Bean pending blood transfusion and final disposition. [facility] hospital course (for use when minimal MDM required): [facility] am scribing for and in the presence of Dr. Marques. Clinical Information Provided by: patient Medical Records reviewed [facility] [place] Meds/Rx considered, not ordered None Labs/Rad/Tests considered, not ordered None Chronic Illness/Social Conditions which may negatively complicate care or outcome(s)-explain: Cancer EKG Interpretation EKG #1: EKG Interpretation: EKG @ 11:34 AM. Normal sinus rhythm, rate 67, left bundle branch block, no STEMI. Labs Labs: interpreted by tn Lab(s) Interpretation(s): H/H 7.9 and 23.6 Imaging Imaging interpretation: none Medication Administration(s) Medication Administration History Discontinued Medications Heparin Sodium (Beef Lung) (Heparin Sod Lock Syr 100 Unit/Ml) 500 unit IV X1 ONE Stop: 01/05/25 18:24 Last Admin: 01/05/25 18:44 Dose: 500 unit Documented By: ALLY Sodium Chloride (Ns) 1,000 mls @ 30 mls/hr IV .Q24H ONE Stop: 01/06/25 11:24 Last Admin: 01/05/25 11:36 Dose: Not Given Documented By: VL Non-Admin Reason: Cancelled by Provider Non-Formulary Medication (Prbcs) 2 units IV X1 ONE Stop: 01/05/25 11:28 Last Admin: 01/05/25 11:36 Dose: Not Given Documented By: VL Non-Admin Reason: Cancelled by Provider See above
[2025-01-05] MEDS: HEPARIN SOD LOCK SYR 100 UNIT/ML 500 UNIT IV (18:44)
--- NOTE | 2025-01-05 19:01 | EDNOTE_ITS ---
Emergency Room Addendum Addendum Narrative: 1800: Care assumed from Dr. Alexander (emergency physician). Past medical, surgical, social and family history reviewed. Vitals and home medications reviewed. Results and treatment plan discussed. I will assume the care of the patient at this time and will follow the patient, pending blood transfusion. The following addendum documentation note is intended to reflect any pending information, findings, or radiology results not included in the patient?s ini tial chart by the previous shift scribe. 19:05 - Assumed care of this pleasant 79 y/o female currently undergoing chemotherapy for stage IV colon CA, unable to make chemotherapy appointment due to generalized weakness. Patient was found to be anemic with hemoglobin of 7.1 and was transfused 2 units w/o incident. Patient reports subjective improvement and considered stable for discharge. Final diagnosis includes symptomatic anemia. Disposition: home. 19:22 - I have spoken with the patient and discussed today?s findings, in addition to providing specific details for the plan of care. Questions are answered and there is an agreement with the plan. Re-assessment at the time of disposition demonstrates that the patient is in no acute distress. The patient has remained stable throughout the entire ED visit and is without objective evidence for acute process requiring urgent intervention or hospitalization. The patient is stable for discharge; counseling is provided and documented as above, discussed symptomatic treatment and specific conditions for return.
== END 2025-01-05 19:36 | disposition home or self-care (01) ==
PROVIDERS: Nurse Practitioner Family; Emergency Provider Emergency Medicine; PCP Physician Assistant
DX: I12.9 Hypertensive chronic kidney disease with stage 1 through stage 4 chronic kidney disease, or unspecified chronic kidney disease (principal); D63.1 Anemia in chronic kidney disease; E11.22 Type 2 diabetes mellitus with diabetic chronic kidney disease; E78.5 Hyperlipidemia, unspecified; I44.7 Left bundle-branch block, unspecified; N18.9 Chronic kidney disease, unspecified; Z92.21 Personal history of antineoplastic chemotherapy; Z92.3 Personal history of irradiation; Z85.038 Personal history of other malignant neoplasm of large intestine; Z93.3 Colostomy status
CPT/HCPCS: 36415; 36430; 51702; 80053; 85025; 85610; 85730; 86850; 86900; 86901; 86923; 93005; 99284; A4314; J1642; P9016

== ENCOUNTER 2025-01-30 13:03 | Emergency (ER) | payer MEDICAID, SELFPAY ==
[2025-01-30] VITALS (11 sets, daily range): BP systolic 126–158; BP diastolic 69–84; PULSE 68–88; RESP 15–28; TEMP 36.6–37.1; O2SAT 99–100
--- NOTE | 2025-01-30 13:58 | PD.EDRECHK ---
ED Recheck Abnl Lab Rx-RME/HPI General Chief Complaint: Recheck/Abnormal Lab/Rx Stated Complaint: NEEDS BLOOD TRANSFUSION Time Seen by Provider: 01/30/25 13:18 Arrival date/time: 01/30/25 13:03 79-year-old female patient with significant history of hypertension diabetes mellitus, recent diagnosis of colon cancer,/rectal cancer, currently on chemotherapy, was sent to us by Dr. Acuna, cancer specialist, for blood transfusion. Patient had a blood drawn today and was noted to have a hemoglobin of 7.0. Patient is denying any abdominal pain chest pain vomiting blood or blood in the stool. Patient is minimally ambulatory and currently on a wheelchair. No fever noted Related Data Home Medications ?Medication ?Instructions ?Recorded ?Confirmed capecitabine 500 mg tablet 1,000 mg PO BID 10/22/24 11/26/24 carvedilol 3.125 mg tablet 3.125 mg PO BID 10/22/24 11/26/24 gabapentin 300 mg capsule 300 mg PO Q12H 10/22/24 11/28/24 lisinopril 40 mg tablet 40 mg PO DAILY 10/22/24 11/26/24 Held on 12/03/24. Instructions: Resume on 12/10/24. Hold until you are seen by your PCP nifedipine 30 mg tablet,extended 30 mg PO HS 10/22/24 11/26/24 release insulin glargine 100 unit/mL (3 20 unit subcut QPM 11/26/24 11/26/24 mL) subcutaneous pen (Basaglar KwikPen U-100 Insulin) Previous Rx's ?Medication ?Instructions ?Recorded ferrous sulfate 325 mg (65 mg 325 mg PO Q OTHER DAY #30 tabs 10/24/24 iron) tablet (FeroSul) Allergies Allergy/AdvReac Type Severity Reaction Status Date / Time No Known Allergies Allergy Verified 01/30/25 13:04 Review of Systems Review of Systems Narrative Review of Systems: Review of system reviewed and within normal limits except mentioned in HPI ED Exam Narrative Physical exam: VITAL SIGNS: Reviewed. GENERAL APPEARANCE: Alert and interactive, follows commands, no acute distress, HEAD AND FACE: Non-traumatic. ENT: PERRL, pale conjunctiva, eyelid no trauma, Mucous membrane moist. NECK: Supple, nontender, no nuchal rigidity. CHEST: No tenderness, no crepitus, no paradoxical movement, no retractions. LUNGS: Clear, well ventilated, symmetric, no rales, no wheezing, no ronchi, no stridor, good breath sounds bilaterally. HEART: Regular rate, regular rhythm, no murmur, no gallops. ABDOMEN: Soft, positive bowel sounds, nondistended, no guarding, nontender, no rebound, no masses, RECTAL: Deferred. GENITAL: Deferred. NEUROLOGICAL: Gross motor function intact sensory function intact, Appropriate for age. MUSCULOSKELETAL: low back nontender, full range of motion. EXTREMITIES: Nontender, full range of motion. SKIN: Color pale, dry, no rash, no lacerations, no abrasions, no contusions. LYMPHATICS: Deferred. Course Quality Measures none Orders Category Date Time Status Miscellaneous Nursing Order NOW Care 01/30/25 20:29 Active Transfuse,blood/blood products ONCE Care 01/30/25 13:57 Active Red Blood Cells Stat Lab 01/30/25 14:36 Results Type and Screen Stat Lab 01/30/25 14:36 Results mg Hyd/Al Hyd/Lorene Susp [Maalox Susp] Med 01/30/25 21:21 Discontinued 30 ml PO X1 ONE Vital Signs Vital signs: Vital Signs Temperature 98.5 F 01/30/25 13:36 Pulse Rate 68 01/30/25 13:36 Respiratory Rate 18 01/30/25 13:36 Blood Pressure 126/84 01/30/25 13:36 Pulse Oximetry (%) 99 01/30/25 13:36 Oxygen Delivery Method Room Air 01/30/25 13:36 Recheck / Abnormal Lab / Rx MDM Narrative MDM Narrative:: 79-year-old female patient with significant history of hypertension diabetes mellitus, recent diagnosis of colon cancer,/rectal cancer, currently on chemotherapy, was sent to us by Dr. Acuna, cancer specialist, for blood transfusion. Patient had a blood drawn today and was noted to have a hemoglobin of 7.0. Patient is denying any abdominal pain chest pain vomiting blood or blood in the stool. Patient is minimally ambulatory and currently on a wheelchair. No fever noted I reviewed patient's CBC that was done earlier today and it was 7 hemoglobin. Patient received 2 units of packed RBC no posttransfusion reaction noted. Patient is stable for discharge home Patient data External records reviewed:: None Clinical information provided by:: patient Social determinants that could affect healthcare access:: none Patient has the following chronic illnesses:: History of colon cancer How is presenting disease/condition affected by chronic disease/condition?: exacerbated by Evaluation data The following diagnostics were reviewed and interpreted by me:: lab results Lab and/or radiology exams considered but not ordered:: None Interpretation Summary: See above Medications / Prescriptions Medications or Prescriptions considered but not ordered:: None Medication administrations:: Medication Administration History Discontinued Medications Al Hydrox/Mg Hydrox/Simethicone (Mg Hyd/Al Hyd/Lorene (Maalox Reg) Susp 30 Ml Udc) 30 ml PO X1 ONE Stop: 01/30/25 21:22 Last Admin: 01/30/25 21:35 Dose: 30 ml Documented By: IAN Pierre Patient received 2 units of packed RBC Consultations Consultation(s) initiated? (list below): No Diagnosis Recheck Differential Diagnosis: other (Anemia, anemia chronic disease iron deficiency) Most likely diagnosis given after review of the tests above:: Anemia of chronic disease Admission Indicated Admission indicated?: not indicated Admission Request Was there a request for admission?: No Disposition Plan Disposition Plan: Discharge Discharge Attestation Discharge Attestation: The patient and all family members were given an opportunity to ask questions and understood the discharge instructions. Discharge instructions specifically effects, indications for sooner follow up or return to the emergency department, and the expected course of current diagnosis. Patient condition: Stable Discharge Plan Plan Patient Disposition: HOME (Self Care) Discharge Disposition comment: Stable Prescriptions/Referrals Prescriptions/Med Rec: No Action lisinopril 40 mg tablet 40 mg PO DAILY nifedipine 30 mg tablet extended release 30 mg PO HS carvedilol 3.125 mg tablet 3.125 mg PO BID gabapentin 300 mg capsule 300 mg PO Q12H capecitabine 500 mg tablet 1,000 mg PO BID ferrous sulfate [FeroSul] 325 mg (65 mg iron) tablet 325 mg PO Q OTHER DAY Qty: 30 0RF insulin glargine [Basaglar KwikPen U-100 Insulin] 100 unit/mL (3 mL) insulin pen 20 unit subcut QPM Referrals: Radha Cristobal PA-C [Primary Care Provider, Emergency Medicine] - In 1 week Problem List Clinical Impression: Anemia of chronic disease, History of colon cancer Patient/Caregiver Discharge Instructions Discharge Activity: activity as tolerated Education Materials: Anemia Additional Instructions: Thank you for the opportunity for serving you today. You are stable for discharged . You are advised to: Follow-up with your PCP in 1 to 2 days Return to ED for worsening of symptoms Print Language: Khmer Stand Alone Forms: Lily Award Info., Patient Portal Info Letter PA/SLAB INSPECTOR Supervising Physician PA/KENNETH Supervising Physician: MD [place]
[2025-01-30] MEDS: MG HYD/AL HYD/SIME (Maalox Reg) SUSP 30 ML UDC PO (21:35)
[2025-01-31 00:04] VITALS: BP 147/67; PULSE 75; RESP 22; TEMP 36.8; O2SAT 100
[2025-01-31 01:35] VITALS: BP 158/78; PULSE 78; RESP 28; TEMP 37; O2SAT 100
[2025-01-31] MEDS: HEPARIN SOD LOCK SYR 100 UNIT/ML 500 UNIT IV (01:49)
== END 2025-01-31 02:04 | disposition home or self-care (01) ==
PROVIDERS: Emergency Provider Family Medicine; PCP Physician Assistant
DX: C18.9 Malignant neoplasm of colon, unspecified (principal); D63.8 Anemia in other chronic diseases classified elsewhere; E11.9 Type 2 diabetes mellitus without complications; I10 Essential (primary) hypertension
CPT/HCPCS: 36415; 80053; 81001; 85025; 85610; 86850; 86900; 86901; 86923; 99283; J1642; P9016; A9270

== ENCOUNTER 2025-02-03 14:41 | Outpatient (RCR) | payer MEDICAID, SELFPAY ==
[2025-01-13 16:25] LABS: Collection Type, Urine Voided
[2025-01-13 16:29] LABS: Basophils # (Auto) 0.1 Thou/mm3 (0.0-0.2); Basophils % (Auto) 1 % (0-2.5); Eosinophils # (Auto) 0.1 Thou/mm3 (0.0-0.5); Eosinophils % (Auto) 1 % (0-10); Hematocrit 30.9 % (36.0-46.0); Hemoglobin 10.7 g/dL (12.0-16.0); Immature Granulocytes Auto 0.05 Thou/mm3 (0.00-0.00); Lymphocytes # (Auto) 1.7 Thou/mm3 (1.0-4.8); Lymphocytes % (Auto) 14 % (10-50); Mean Corpuscular HGB Conc 34.6 g/dl (31.0-37.0); Mean Corpuscular Hemoglobin 32.2 pg (25.0-35.0); Mean Corpuscular Volume 93 fL (80-100); Monocytes # (Auto) 0.8 Thou/mm3 (0.0-0.8); Monocytes % (Auto) 6 % (0-12); Neutrophils # (Auto) 10.1 Thou/mm3 (1.8-7.7); Neutrophils % (Auto) 79 % (37-80); Nucleated Red Blood Cell # 0.00 Thou/mm3 (0.00-0.00); Nucleated Red Blood Cell % 0 /100 WBC (0); Platelet Count 259 Thou/mm3 (140-440); RDW Standard Deviation 53.5 fL (36.4-46.3); Red Blood Count 3.32 Miln/mm3 (4.00-5.20); White Blood Count 12.8 Thou/mm3 (3.6-11.0)
[2025-01-13 16:38] LABS: Bacteria,Urine Rare; Bilirubin,Urine Negative (Negative); Blood,Urine Trace (Negative); Budding Yeast,Urine Present; Clarity,Urine Clear (Clear/Hazy); Color,Urine Yellow (Lt Yel-Yel); Glucose, Urine Negative (Negative); Ketones,Urine Negative (Negative); Leukocyte Esterase,Urine Positive (Negative); Nitrite,Urine Positive (Negative); PH,Urine 6.0 (5.0-7.0); Protein,Urine 1+ (Neg - Trace); RBC,Urine 4 /hpf (0-3); Specific Gravity,Urine 1.013 (1.001-1.035); Squamous Epithelial Cell,Urine < 1 /hpf (0-5); Urobilinogen,Urine Negative mg/dL (0.0-1.0); WBC,Urine 26 /hpf (0-5)
[2025-01-13 17:04] LABS: Alanine Aminotransferase 31 U/L (10-49); Albumin, Serum 3.8 gm/dL (3.4-4.8); Albumin/Globulin Ratio 1.6 (1.2-2.2); Alkaline Phosphatase 96 U/L (46-116); Anion Gap 9 (7-16); Aspartate Amino Transferase 44 U/L (0-34); BUN/Creatinine Ratio 16 Ratio (12-20); Bilirubin,Total 0.4 mg/dL (0.3-1.2); Blood Urea Nitrogen 19 mg/dL (9-23); Calcium 9.0 mg/dL (8.3-10.6); Calcium (Corrected) 9.2 mg/dL (8.5-10.1); Carbon Dioxide 19.9 mMol/L (20.0-31.0); Chloride 103 mMol/L (98-107); Creatinine (Component) 1.2 mg/dL (0.6-1.3); Globulin 2.4 gm/dL (2.3-3.5); Glucose 161 mg/dL (74-106); Osmolality,Calculated 269 (275-295); Potassium 4.6 mMol/L (3.4-5.1); Sodium 132 mMol/L (136-145); Total Protein 6.2 gm/dL (5.7-8.2); eGFR 46 See Note
[2025-01-13 17:05] LABS: Carcinoembryonic Antigen 12.9 ng/mL (0.0-5.0)
[2025-01-30 11:56] LABS: Basophils # (Auto) 0.0 Thou/mm3 (0.0-0.2); Basophils % (Auto) 1 % (0-2.5); Eosinophils # (Auto) 0.1 Thou/mm3 (0.0-0.5); Eosinophils % (Auto) 1 % (0-10); Hematocrit 20.9 % (36.0-46.0); Hemoglobin 7.0 g/dL (12.0-16.0); Immature Granulocytes Auto 0.08 Thou/mm3 (0.00-0.00); Lymphocytes # (Auto) 1.5 Thou/mm3 (1.0-4.8); Lymphocytes % (Auto) 24 % (10-50); Mean Corpuscular HGB Conc 33.5 g/dl (31.0-37.0); Mean Corpuscular Hemoglobin 31.5 pg (25.0-35.0); Mean Corpuscular Volume 94 fL (80-100); Monocytes # (Auto) 0.8 Thou/mm3 (0.0-0.8); Monocytes % (Auto) 12 % (0-12); Neutrophils # (Auto) 3.8 Thou/mm3 (1.8-7.7); Neutrophils % (Auto) 61 % (37-80); Nucleated Red Blood Cell # 0.00 Thou/mm3 (0.00-0.00); Nucleated Red Blood Cell % 0 /100 WBC (0); Platelet Count 252 Thou/mm3 (140-440); RDW Standard Deviation 55.8 fL (36.4-46.3); Red Blood Count 2.22 Miln/mm3 (4.00-5.20); White Blood Count 6.2 Thou/mm3 (3.6-11.0)
[2025-01-30 12:13] LABS: Alanine Aminotransferase 11 U/L (10-49); Albumin, Serum 3.1 gm/dL (3.4-4.8); Albumin/Globulin Ratio 1.6 (1.2-2.2); Alkaline Phosphatase 75 U/L (46-116); Anion Gap 11 (7-16); Aspartate Amino Transferase 20 U/L (0-34); BUN/Creatinine Ratio 15 Ratio (12-20); Bilirubin,Total 0.3 mg/dL (0.3-1.2); Blood Urea Nitrogen 15 mg/dL (9-23); Calcium 8.1 mg/dL (8.3-10.6); Calcium (Corrected) 8.8 mg/dL (8.5-10.1); Carbon Dioxide 18.7 mMol/L (20.0-31.0); Chloride 111 mMol/L (98-107); Creatinine (Component) 1.0 mg/dL (0.6-1.3); Globulin 2.0 gm/dL (2.3-3.5); Glucose 104 mg/dL (74-106); Osmolality,Calculated 282 (275-295); Potassium 4.1 mMol/L (3.4-5.1); Sodium 141 mMol/L (136-145); Total Protein 5.1 gm/dL (5.7-8.2); eGFR 57 See Note
[2025-01-30 12:16] LABS: Carcinoembryonic Antigen 10.0 ng/mL (0.0-5.0)
[2025-02-02 09:30] LABS: Hematocrit 32.4 % (36.0-46.0); Hemoglobin 11.0 g/dL (12.0-16.0)
[2025-02-02 09:53] LABS: Ferritin 1031 ng/mL (7.3-270.7); Iron 38 mcg/dL (50-170); Percent Iron Saturation 19 % (20-55); Total Iron Binding Capacity 194 mcg/dL (250-425); Unsaturated Iron Binding 156 (225-295)
[2025-02-02 09:58] LABS: Folate > 24.00 ng/mL (>5.38); Vitamin B12 1596 pg/mL (211-911)
--- NOTE | 2025-02-08 12:20 | CHAP ---
Patient was visited by the Spiritual Care Volunteer who prayed for them. (Volunteer was in the hospital from 11:24-12:20).
== END 2025-02-08 23:59 | disposition home or self-care (01) ==
LOC: SCTC 14:41
PROVIDERS: PCP Physician Assistant; Referring Provider Physician Assistant; Visit Provider Internal Medicine Hematology & Oncology
DX: Z51.11 Encounter for antineoplastic chemotherapy (principal); C19 Malignant neoplasm of rectosigmoid junction; Z90.49 Acquired absence of other specified parts of digestive tract; R91.1 Solitary pulmonary nodule; N39.0 Urinary tract infection, site not specified; B96.20 Unspecified Escherichia coli [E. coli] as the cause of diseases classified elsewhere; Z16.20 Resistance to unspecified antibiotic
CPT/HCPCS: 36591; 80053; 81001; 82378; 82607; 82728; 82746; 83540; 83550; 85014; 85018; 85025; 87077; 87086; 87186; 96367; 96368; 96411; 96413; 96415; 96416; A4216; J0640; J1100; J1642; J2469; J3490; J7050; J7060; J9190; J9263; A9270

== ENCOUNTER 2025-02-03 15:31 | Inpatient (IN) | payer MEDICAID, SELFPAY ==
[2025-02-03] VITALS (8 sets, daily range): BP systolic 126–140; BP diastolic 59–79; PULSE 67–106; RESP 18–28; TEMP 36.8–37.8; O2SAT 97–100
--- NOTE | 2025-02-03 15:55 | XR_ITS ---
EXAMINATION: AP chest single view TECHNIQUE: Upright AP chest single view Date and time: February 03, 2025, 1604 hours, comparison 11/26/2024 INDICATIONS: Diagnosis rectosigmoid carcinoma FINDINGS: Soft nodular densities in both lungs, please see the CT chest study 12/04/2024 Right internal jugular Port-A-Cath tip satisfactory position Early bibasilar pneumonia No pulmonary edema Osseous structures are intact IMPRESSION: Early bibasilar pneumonia
--- NOTE | 2025-02-03 15:56 | PD.EDRME ---
Rapid Medical Screening Exam RME Arrival date/time: 02/03/25 15:31 79-year-old female with a history of hypertension, type 2 diabetes, colon cancer, was sent to the emergency room for chief complaint of chills, weakness, and fevers x 2 days I have greeted and performed a focused initial assessment of this patient. A comprehensive ED assessment and evaluation of the patient, analysis of all test results, and completion of the medical decision making process will be conducted by additional ED providers. Chief Complaint: Fever Vital signs: Vital Signs Temperature 99.7 F 02/03/25 15:52 Pulse Rate 106 H 02/03/25 15:52 Respiratory Rate 18 02/03/25 15:52 Blood Pressure 139/79 H 02/03/25 15:52 Pulse Oximetry (%) 97 02/03/25 15:52 Oxygen Delivery Method Room Air 02/03/25 15:52 Vital signs reviewed by provider: Yes Exam: Soft nontender abdomen Clear bilateral lung sounds Clinical Impression: Sepsis/UTI/community-acquired pneumonia
[2025-02-03] MEDS: ACETAMINOPHEN 325 MG TABLET 650 MG PO (16:11)
[2025-02-03 16:35] LABS: Collection Type, Urine Clean Catch
[2025-02-03 16:47] LABS: Bacteria,Urine Rare; Bilirubin,Urine Negative (Negative); Blood,Urine Negative (Negative); Budding Yeast,Urine Present; Color,Urine Yellow (Lt Yel-Yel); Glucose, Urine Trace (Negative); Hyaline Casts,Urine < 1 /hpf (0-1); Ketones,Urine Negative (Negative); Leukocyte Esterase,Urine Positive (Negative); Nitrite,Urine Negative (Negative); PH,Urine 5.5 (5.0-7.0); Protein,Urine 2+ (Neg - Trace); RBC,Urine 51 /hpf (0-3); Specific Gravity,Urine 1.019 (1.001-1.035); Squamous Epithelial Cell,Urine < 1 /hpf (0-5); Urobilinogen,Urine Negative mg/dL (0.0-1.0); WBC,Urine 68 /hpf (0-5)
[2025-02-03 16:50] LABS: Clarity,Urine Hazy (Clear/Hazy)
--- NOTE | 2025-02-03 17:47 | PC.NURSE ---
Patient to er with daughter at bedside, sent by CTC for fever, patient has gorman in place, urine sent per daughter. Patient has h/o colon cancer with resection last year, patient last chemo was yesterday and per daughter patient had fever today, patient denies other symptoms, new orders received from Panchal PHYSICAL EDUCATION TEACHER.
[2025-02-03 17:50] LABS: Lactate (Lactic Acid) 4.8 mMol/L (0.4-2.0)
[2025-02-03 17:51] LABS: Basophils # (Auto) 0.0 Thou/mm3 (0.0-0.2); Basophils % (Auto) 0 % (0-2.5); Eosinophils # (Auto) 0.0 Thou/mm3 (0.0-0.5); Eosinophils % (Auto) 0 % (0-10); Hematocrit 30.4 % (36.0-46.0); Hemoglobin 10.3 g/dL (12.0-16.0); Immature Granulocytes Auto 0.16 Thou/mm3 (0.00-0.00); Lymphocytes # (Auto) 0.3 Thou/mm3 (1.0-4.8); Lymphocytes % (Auto) 1 % (10-50); Mean Corpuscular HGB Conc 33.9 g/dl (31.0-37.0); Mean Corpuscular Hemoglobin 30.9 pg (25.0-35.0); Mean Corpuscular Volume 91 fL (80-100); Monocytes # (Auto) 0.1 Thou/mm3 (0.0-0.8); Monocytes % (Auto) 0 % (0-12); Neutrophils # (Auto) 21.7 Thou/mm3 (1.8-7.7); Neutrophils % (Auto) 98 % (37-80); Nucleated Red Blood Cell # 0.00 Thou/mm3 (0.00-0.00); Nucleated Red Blood Cell % 0 /100 WBC (0); Platelet Count 133 Thou/mm3 (140-440); RDW Standard Deviation 54.5 fL (36.4-46.3); Red Blood Count 3.33 Miln/mm3 (4.00-5.20); White Blood Count 22.2 Thou/mm3 (3.6-11.0)
[2025-02-03] MEDS: cefTRIAXone/D5w 1gm IV premix 1 GM/50 ML BAG IV (17:58)
[2025-02-03] MEDS: SODIUM CHLORIDE 0.9% 500 ML 500 ML 999 ML IV (17:59)
[2025-02-03 18:17] LABS: Alanine Aminotransferase 56 U/L (10-49); Albumin, Serum 3.2 gm/dL (3.4-4.8); Albumin/Globulin Ratio 1.5 (1.2-2.2); Alkaline Phosphatase 157 U/L (46-116); Anion Gap 16 (7-16); Aspartate Amino Transferase 117 U/L (0-34); BUN/Creatinine Ratio 23 Ratio (12-20); Bilirubin,Total 0.5 mg/dL (0.3-1.2); Blood Urea Nitrogen 25 mg/dL (9-23); Calcium 8.8 mg/dL (8.3-10.6); Calcium (Corrected) 9.4 mg/dL (8.5-10.1); Carbon Dioxide 17.1 mMol/L (20.0-31.0); Chloride 106 mMol/L (98-107); Creatinine (Component) 1.1 mg/dL (0.6-1.3); Globulin 2.1 gm/dL (2.3-3.5); Glucose 186 mg/dL (74-106); Osmolality,Calculated 286 (275-295); Potassium 3.5 mMol/L (3.4-5.1); Procalcitonin 47.16 ng/ml (0.0-0.49); Sodium 139 mMol/L (136-145); Total Protein 5.3 gm/dL (5.7-8.2); eGFR 51 See Note
--- NOTE | 2025-02-03 18:26 | EDNOTE_ITS ---
ED General RME/HPI General Chief complaint: Fever Stated complaint: FEVER Time Seen by Provider: 02/03/25 18:25 Arrival date/time: 02/03/25 15:31 CC: Chills fever HPI patient referred to the emergency room from the cancer treatment center where the patient is receiving chemotherapy. Patient has bodyaches. RME / HPI RME / HPI narrative: 02/03/25 15:31 79-year-old female with a history of hypertension, type 2 diabetes, colon cancer, was sent to the emergency room for chief complaint of chills, weakness, and fevers x 2 days I have greeted and performed a focused initial assessment of this patient. A comprehensive ED assessment and evaluation of the patient, analysis of all test results, and completion of the medical decision making process will be conducted by additional ED providers. Exam: Soft nontender abdomen Clear bilateral lung sounds Impression: Sepsis/UTI/community-acquired pneumonia Related Data Home Medications ?Medication ?Instructions ?Recorded ?Confirmed capecitabine 500 mg tablet 1,000 mg PO BID 10/22/24 carvedilol 3.125 mg tablet 3.125 mg PO BID 10/22/24 gabapentin 300 mg capsule 300 mg PO Q12H 10/22/2411/10 lisinopril 40 mg tablet 40 mg PO DAILY 10/22/2411/10 Held on 12/03/24. Instructions: Resume on 12/10/24. Hold until you are seen by your PCP nifedipine 30 mg tablet,extended 30 mg PO HS 10/22/24 11/26/24 release insulin glargine 100 unit/mL (3 20 unit subcut QPM 11/26/24 mL) subcutaneous pen (Basaglar KwikPen U-100 Insulin) Previous Rx's ?Medication ?Instructions ?Recorded ferrous sulfate 325 mg (65 mg 325 mg PO Q OTHER DAY #3 0 tabs 10/24/24 iron) tablet (FeroSul) Allergies Allergy/AdvReac Type Severity Reaction Status Date / Time No Known Allergies Allergy Verified 01/30/25 13:04 Review of Systems Review of Systems Narrative Review of Systems: GEN: + fever, + chills, no weight loss EYES: No discharge, no visual changes, no pain HEENT: No ear pain, no congestion, no sore throat PULM: No shortness of breath, no cough, no congestion CV: No chest pain, no dyspnea on exertion, no palpitations GI: No nausea, no vomiting, no diarrhea, no pain, no constipation : No frequency, no urgency, no dysuria MUSC/SKEL: No joint pain, no back pain SKIN: No rash PSYCH: No hallucinations, no depression HEME/LYMPH: No easy bleeding or bruising tendencies NEURO: No weakness, no headache Past Medical History Past Medical History NEUROLOGIC: Positive Peripheral Neuropathy; Negative Neurological Disorders CARDIAC: Positive Hypertension; Negative Cardiac Disorders, Cardiac Arrhythmia, Atrial Fibrillation, Angina, Atherosclerotic Heart Disease, Aneurysm, Congestive Heart Failure, Congenital Heart Disease or Cardiomyopathy RESPIRATORY: Negative Chronic Obstructive Pulmonary Disease (COPD) or Asthma GASTROINTESTINAL: Positive Colorectal Cancer; Negative Gastrointestinal Disorders or Hepatitis GENITOURINARY: Positive Genitourinary Disorders and Renal Disease; Negative Dialysis REPRODUCTIVE: Positive Previous Pregnancies; Negative Pelvic Inflammatory Disease MUSCULOSKELETAL: Positive Fractures ENDOCRINE: Positive Diabetes Mellitus Type 1; Negative Endocrine Disorders or Diabetes Mellitus Type 2 HEMATOLOGIC: Positive Blood Disorders and Anemia; Negative Sickle Cell Disease OTHER HISTORY: Positive Blood Transfusions, Cancer and Colorectal Cancer; Negative Autoimmune Disease, Blood Transfusion Reaction or Anesthesia Reactions Family History FAMILY HISTORY: Negative Family Cancer, Family Surgery or Family Anesthesia Reaction Surgical History SURGICAL: Positive Abdominal Surgery and Bowel Surgery (bowel resection with colostomy, september for colorectal cancer); Negative Ear Surgery, Nephrectomy or Neurologic Surgery Social History SMOKING STATUS: Never smoker ED Exam Narrative Physical exam: [General: Thin, emaciated, not in any acute distress Head normocephalic HEENT: Within acceptable limits Neck is supple nontender Chest equal chest rise nontender to palpation Respiratory: Clear to auscultation no wheezes crackles or rubs CV: Rate rhythm is regular no murmurs rubs or clicks Abdomen is soft nontender no masses positive bowel sounds all 4 quadrants Back: No CVA tenderness no spinous process tenderness from cervical spine thoracic and lumbar spine Skin: Intact no petechiae rash induration ulceration or crepitus Extremities: Moving all extremity against resistance cap refill less than 2 seconds neurosensory intact Neuro: Awake alert oriented x3 Glascow coma 15 no focal deficits] Course Quality Measures none Orders Category Date Time Status CT Screening NOW Care 02/03/25 21:54 Active Fusing Furnace Loader STAT Care 02/03/25 18:06 Active Continuous Pulse Oximetry STAT Care 02/03/25 18:06 Completed EKG (ED ONLY) *Do not use* NOW Care 02/03/25 18:06 Completed Insert IV NOW Care 02/03/25 18:06 Completed May Access Port-A-Cath NOW Care 02/03/25 17:45 Ordered NPO STAT Care 02/03/25 18:06 Active Saline [Insert IV] NOW Care 02/03/25 17:27 Active Strict Intake and Output Routine Care 02/03/25 18:[address] abdomen pelvis w con Stat Exams 02/03/25 21:[address] abdomen pelvis wo con Stat Exams 02/03/25 18:29 Completed EKG (ED Only) Stat Exams 02/03/25 18:06 Ordered XR chest 1V portable Stat Exams 02/03/25 15:55 Completed B-Type Natriuretic Peptide Stat Lab 02/03/25 17:35 Completed Blood Culture (Lab) Stat Lab 02/03/25 17:35 Received CBC Stat Lab 02/03/25 17:35 Completed CMP [Comprehensive Metabolic Panel] Stat Lab 02/03/25 17:35 Completed COVID-19 Antigen (In-House) Stat Lab 02/03/25 19:39 Completed LDH (Lactate Dehydrogenase) Stat Lab 02/03/25 17:35 Completed Lactate (Lactic Acid) Stat Lab 02/03/25 17:35 Completed Lactic Acid, 3 HR Stat Lab 02/03/25 21:00 Completed Lipase Stat Lab 02/03/25 17:35 Completed Magnesium Stat Lab 02/03/25 17:35 Completed Partial Thromboplastin Time Stat Lab 02/03/25 17:35 Completed Phosphorous Stat Lab 02/03/25 17:35 Completed Procalcitonin Stat Lab 02/03/25 17:35 Completed Prothrombin Time with INR Stat Lab 02/03/25 17:35 Completed Troponin I Stat Lab 02/03/25 17:35 Completed UA [Urinalysis] Stat Lab 02/03/25 16:21 Completed Urine Culture Stat Lab 02/03/25 16:21 Received VBG [Venous Blood Gas] Stat Lab 02/03/25 22:45 Completed Acetaminophen Tab [Tylenol Tab] Med 02/03/25 15:56 Discontinued 650 mg PO X1 ONE CIPROFLOXACIN/D5w 400 MG IVPB [Cipro Ivpb] Med 02/03/25 21:54 Discontinued 400 mg in 200 ml IV X1 Magnesium Sulfate 4 GM Ivpb [Magnesium Sulfate Ivpb] Med 02/03/25 22:32 Active 4 gm in 50 ml IV X1 Ringers Lactated 1000 ml [Lactated Ringers] 1,000 ml Med 02/03/25 18:04 Disc ontinued IV 999 mls/hr Ringers Lactated 1000 ml [Lactated Ringers] 1,500 ml Med 02/03/25 18:36 Discontinued IV 999 mls/hr Ringers Lactated 500 ml [Lactated Ringers] 500 ml Med 02/03/25 18:04 Discontinued IV 999 mls/hr Sodium Chloride 0.9% 500 ml [Ns] 500 ml Med 02/03/25 17:28 Discontinued IV 999 mls/hr cefTRIAXone/D5w 1gm IV premix [Rocephin/D5w 1gm IV Med 02/03/25 17:28 Discontinued premix] 1 gm in 50 ml IV X1 cefTRIAXone/D5w 1gm IV premix [Rocephin/D5w 1gm IV Med 02/03/25 18:04 Discontinued premix] 1 gm in 50 ml IV X1 metroNIDAZOLE/NS 500 MG IVPB [Flagyl 500 mg IV] Med 02/03/25 21:54 Discontinued 500 mg in 100 ml IV X1 Oxygen Delivery NOW RT 02/03/25 18:06 Active Vital Signs Vital signs: Vital Signs Temperature 99.7 F 02/03/25 15:52 Pulse Rate 106 H 02/03/25 15:52 Respiratory Rate 18 02/03/25 15:52 Blood Pressure 139/79 H 02/03/25 15:52 Pulse Oximetry (%) 97 02/03/25 15:52 Oxygen Delivery Method Room Air 02/03/25 15:52 Discharge Plan Plan Patient Disposition: Other Care w/in Hosp ([facility]) Prescriptions/Referrals Prescriptions/Med Rec: No Action lisinopril 40 mg tablet 40 mg PO DAILY nifedipine 30 mg tablet extended release 30 mg PO HS carvedilol 3.125 mg tablet 3.125 mg PO BID gabapentin 300 mg capsule 300 mg PO Q12H capecitabine 500 mg tablet 1,000 mg PO BID ferrous sulfate [FeroSul] 325 mg (65 mg iron) tablet 325 mg PO Q OTHER DAY Qty: 30 0RF insulin glargine [Basaglar KwikPen U-100 Insulin] 100 unit/mL (3 mL) insulin pen 20 unit subcut QPM Referrals: Radha Cristobal PA-C [Primary Care Provider, Emergency Medicine] - In 1 week Problem List Clinical Impression: Sepsis, UTI (urinary tract infection), Pelvic abscess Patient/Caregiver Discharge Instructions Print Language: Kyrgyz Stand Alone Forms: Lily Award Info., Patient Portal Info Letter KIRLIL/KENNETH Supervising Physician MEG Supervising Physician: Alcides Panchal ENP [facility] Clinical Information Provided by: patient and family Medical Records reviewed [facility] Meds/Rx considered, not ordered None Labs/Rad/Tests considered, not ordered None Chronic Illness/Social Conditions Explain: Cancer EKG Interpretation EKG #1: EKG Interpretation: EKG performed at 1821 shows a ventricular rate of 76 OH interval 133 QRS 133 QTc 432 left bundle branch block. Imaging Imaging interpretation: interpreted by sd Imaging Interpretation(s): CBC shows a 22.2 leukocytosis and H&H of 10.3 and 30.4 respectively. Platelet count at 133. CMP shows CO2 of 17 gap of 16 BUN of 25 glucose of 186 Lactic acid of 4.8 T. bili is normal Transaminitis with AST of 117 ALT of 56 alk phos of 157. Procalcitonin of 47.16. Urine shows 2+ protein 51 RBCs 68 WBCs yeast rare bacteria Medication Administration(s) Medication Administration History Magnesium Sulfate (Magnesium Sulfate Ivpb) 4 gm in 50 mls @ 12.5 mls/hr IV X1 ONE Stop: 02/04/25 02:31 Discontinued Medications Acetaminophen (Acetaminophen 325 Mg Tablet) 650 mg PO X1 ONE Stop: 02/03/25 15:57 Last Admin: 02/03/25 16:11 Dose: 650 mg Documented By: PALOMO Sodium Chloride (Ns) 500 mls @ 999 mls/hr IV .Q31M ONE Stop: 02/03/25 17:58 Last Infusion: 02/03/25 18:58 Dose: Infused Documented By: Admin: 02/03/25 17:59 Dose: 999 mls/hr Documented By: EL Ceftriaxone Sodium/Dextrose (Rocephin/D5w 1gm Iv Premix) 1 gm in 50 mls @ 100 mls/hr IV X1 ONE Stop: 02/03/25 17:57 Last Infusion: 02/03/25 18:39 Dose: Infused Documented By: Admin: 02/03/25 17:58 Dose: 100 mls/hr Documented By: EL Lactated Ringer's (Lactated Ringers) 1,000 mls @ 999 mls/hr IV .Q1H1M ONE Stop: 02/03/25 19:04 Last Admin: 02/03/25 18:38 Dose: Not Given Documented By: EL Non-Admin Reason: Duplicate Medication on eMAR Lactated Ringer's (Lactated Ringers) 500 mls @ 999 mls/hr IV .Q31M ONE Stop: 02/03/25 18:34 Last Admin: 02/03/25 18:37 Dose: Not Given Documented By: EL Non-Admin Reason: Duplicate Medication on eMAR Ceftriaxone Sodium/Dextrose (Rocephin/D5w 1gm Iv Premix) 1 gm in 50 mls @ 100 mls/hr IV X1 ONE Stop: 02/03/25 18:33 Last Admin: 02/03/25 18:09 Dose: Not Given Documented By: EL Non-Admin Reason: Duplicate Medication on eMAR Lactated Ringer's (Lactated Ringers) 1,500 mls @ 999 mls/hr IV .Q1H31M ONE Stop: 02/03/25 19:34 Last Infusion: 02/03/25 20:11 Dose: Infused Documented By: Admin: 02/03/25 18:40 Dose: 999 mls/hr Documented By: EL Ciprofloxacin/Dextrose (Cipro Ivpb) 400 mg in 200 mls @ 200 mls/hr IV X1 ONE Stop: 02/03/25 22:53 Last Admin: 02/03/25 22:23 Dose: 200 mls/hr Documented By: LILI Metronidazole (Flagyl 500 Mg Iv) 500 mg in 100 mls @ 100 mls/hr IV X1 ONE Stop: 02/03/25 22:53 Last Admin: 02/03/25 22:17 Dose: 100 mls/hr Documented By: LILI
--- NOTE | 2025-02-03 18:29 | XR_ITS ---
Examination: CT abdomen and pelvis without contrast. Coronal 3-D reconstructions. Sagittal 2-D reconstructions. Date and time of exam: February 03, 2025, 1858 hours INDICATIONS: Sepsis with fever today CTDI: vol (mGy): 7.17 DLP: (mGycm): 387 Technique: Axial images of the abdomen have been obtained, 3 mm slice thickness Intravenous contrast material has not been administered. Low dose protocols were performed. One or more of the following dose reduction techniques were used; automated exposure control, adjustment of the mA and/or KV according to patient size, use of iterative reconstruction technique. Findings: Multiple metastatic pulmonary nodules, please see the CT chest report 12/04/2024 Atelectasis versus versus pneumonia left base No focal liver or splenic lesions The gallbladder is not visualized No pancreatic mass Perinephric stranding No ureteral calculi Abundant stool in the right colon No obstruction Left ileostomy 7 cm pelvic abscess, larger compared to 12/04/2024 Urinary bladder wall shows marked thickening Large rectosigmoid apparent tumor mass on this limited noncontrast study Severe osteopenia IMPRESSION: Multiple metastatic pulmonary nodules Atelectasis versus mild pneumonia left base Perinephric stranding, consider urinary tract infection No hydronephrosis or ureteral calculi No obstruction Significant thickening of the urinary bladder wall, consider cystitis Again noted thickening in the rectosigmoid region 7 cm pelvic abscess, larger compared to the prior study Repeating the study with intravenous contrast would better assess this pelvic abscess
[2025-02-03 18:39] LABS: LDH (Lactate Dehydrogenase) 344 U/L (120-246); Lipase 21 U/L (12-53); Magnesium 1.3 mg/dL (1.6-2.6); Phosphorous 2.7 mg/dL (2.4-5.1); Troponin I 0.026 ng/mL (0.0-0.045)
[2025-02-03 18:42] LABS: INR 1.3 (0.9-1.3); Partial Thromboplastin Time 27.3 Seconds (22.0-36.0); Prothrombin Time 13.2 Seconds (9.0-12.2)
[2025-02-03 18:46] LABS: B-Type Natriuretic Peptide 471 pg/mL (0-100)
[2025-02-03 20:13] LABS: COVID-19 Antigen (In-House) Negative (Negative)
[2025-02-03 20:46] LABS: Reflex Lactate? Y
[2025-02-03 21:05] LABS: Lactic Acid, 3 HR 4.0 mMol/L (0.4-2.0)
--- NOTE | 2025-02-03 21:53 | XR_ITS ---
Examination: CT abdomen with intravenous contrast CT pelvis with intravenous contrast 2-D coronal reconstructions 2-D sagittal reconstructions Date and time of exam: February 03, 2025, 2315 hours, comparison February 03, 2025 1909 hours. INDICATIONS: Metastatic pulmonary nodules, perinephric stranding, pelvic abscess on noncontrast study today CTDI: vol (mGy) 7.35 DLP: (mGycm) 401 Technique: Multiple axial sections of the abdomen and pelvis have been obtained. 64 slice high-resolution scanner used. 3 mm axial sections have been obtained, post intravenous injection 60 cc [id number] 2-D sagittal, coronal reconstructions obtained. Low dose protocols were performed. One or more of the following dose reduction techniques were used; automated exposure control, adjustment of the mA and/or KV according to patient size, use of iterative reconstruction technique. Findings: Multiple metastatic pulmonary nodules No focal liver or splenic lesions No common bile duct stones Gastric mucosa is thickened Dilated small bowel loops in the upper abdomen Abundant stool throughout the colon Left ileostomy Marked vascular thickening of the urinary bladder Bilobed fluid collection in the pelvis 11 cm which projects above the urinary bladder and may represent an abscess versus dilated rectosigmoid colon IMPRESSION: Recommend delayed CT scan of the pelvis with oral Gastrografin to assess 11 cm fluid collection in the pelvis above the urinary bladder and confirm abscess and exclude fluid distended rectosigmoid
[2025-02-03] MEDS: metroNIDAZOLE/NS 500 MG IVPB 500 MG/100 ML BAG 100 MG IV (22:17)
[2025-02-03] MEDS: CIPROFLOXACIN/D5w 400 MG IVPB 400 MG/200 ML BAG 200 MG IV (22:23)
[2025-02-03 22:50] LABS: Base Excess, Venous -5 (-3-3); O2 Saturation, Venous 89 % (96-97); PCO2, Venous 31 mmHg (36-56); PO2, Venous 52 mmHg (15-58); pH, Venous 7.39 (7.33-7.66)
[2025-02-03] MEDS: Magnesium Sulfate 4 GM Ivpb 4 GM/50 ML BAG IV (23:32)
[2025-02-04] VITALS (11 sets, daily range): BP systolic 130–167; BP diastolic 65–78; PULSE 50–73; RESP 17–20; TEMP 36–37; O2SAT 98–100; BMI 24.3
--- NOTE | 2025-02-04 00:11 | PD.RESHP ---
Documentation for date of: 02/04/25 [facility] History of Present Illness History of present illness: 79-year-old female with history of metastatic colon cancer (s/p chemoradiation with CAPOX chemotherapy), colectomy with colostomy in August 2024, CKD, insulin-dependent diabetes mellitus with neuropathy, hypertension, hyperlipidemia, and anemia, presenting with a 2-day history of chills, weakness, and subjective fevers. Her daughter reports a Tmax of 100.1 today. The patient denies dysuria, hematuria, urinary frequency, nausea, vomiting, or abdominal pain. Patient has a chronic Nixon catheter in place. Patient was previously admitted for complicated ESBL UTI in December 2024 and was treated with levofloxacin. ED course: Initial vitals include T 99.7, BP 139/79, HR 106, RR 18, 97% on room air. Notable labs include WBC 22.2, hemoglobin 10.3, MCV 91, platelets 133, potassium 3.5, bicarb 17.1, BUN 25, creatinine 1.1, lactic acid 4.8 with repeat 4.0, glucose 186, magnesium 1.3, T. bili 0.5, LFTs mildly elevated with AST 117, ALT 56, alk phos 157, lactate dehydrogenase 344, albumin 3.2, Pro-[place]win 47.16. UA showed WBC 68, leuk esterase positive. CT Abdo/pelvis showed bilobed fluid collection in the pelvis 11 cm which projects above the urinary bladder and may represent an abscess versus dilated rectosigmoid colon Past medical history: As stated above. Past surgical history: Colectomy with colostomy (09/03), cholecystectomy (2019) Allergies: NKDA. Family history: Noncontributory. Social history: No alcohol use, no smoking, no illicit drug use. Patient admitted for sepsis secondary to UTI. Review of Systems Review of Systems Narrative Review of Systems: All systems reviewed negative unless stated otherwise above. Exam Vital Signs Temp Pulse Resp BP Pulse Ox O2 Del Method 98.2 F 69 20 126/71 100 Room Air 02/03/25 22:24 02/03/25 22:24 02/03/25 22:24 02/03/25 22:24 02/03/25 22:24 02/03/25 22:24 Narrative Exam General: AOx3, no acute distress, able to speak full sentences, Hebrew-speaking HEENT: NC/AT, mucous membranes moist, bilateral sclera anicteric Cardiovascular: regular rate and rhythm, S1/S2 present, no murmurs appreciated Pulmonary: clear to auscultation bilaterally, no rales/rhonchi/wheezes Abdominal: soft, non-tender, non-distended, no rebound/guarding, normal bowel sounds present Musculoskeletal: normal ROM, no peripheral edema Skin: warm and dry, intact, no rashes, Neuro: CN II-XII intact, no focal deficits Results: Labs 02/04/25 04:25 02/04/25 04:25 Labs: Short CBC 02/03/25 Range/Units 17:35 WBC 22.2 H D (3.6-11.0) Thou/mm3 Hgb 10.3 L (12.0-16.0) g/dL Hct 30.4 L (36.0-46.0) % Plt Count 133 L D (140-440) Thou/mm3 BMP 02/03/25 17:35 Sodium 139 Potassium 3.5 Chloride 106 Carbon Dioxide 17.1 L BUN 25 H Creatinine 1.1 Glucose 186 H Calcium 8.8 Cardiac Enzymes 02/03/25 Range/Units 17:35 Troponin I 0.026 (0.0-0.045) ng/mL Liver Function 02/03/25 Range/Units 17:35 Total Bilirubin 0.5 (0.3-1.2) mg/dL AST 117 H (0-34) U/L ALT 56 H (10-49) U/L Alkaline Phosphatase 157 H (46-116) U/L Albumin 3.2 L (3.4-4.8) gm/dL Urine 02/03/25 Range/Units 16:21 Urine Color Yellow (Lt Yel-Yel) Urine Clarity Hazy (Clear/Hazy) Urine pH 5.5 (5.0-7.0) Ur Specific [place] 1.019 (1.001-1.035) Urine Protein 2+ A (Neg - Trace) Urine Glucose (UA) Trace (Negative) ABG Interpretation ABG results: 02/03/25 22:45 VBG pH 7.39 VBG pCO2 31 L VBG pO2 52 VBG Base Excess -5 L Quality Measures Quality Measures VTE prophylaxis and none Advance care planning discussed with:: patient Medications Home Medications and Allergies Home Medications ?Medication ?Instructions ?Recorded ?Confirmed ?Type carvedilol 3.125 mg tablet 3.125 mg PO BID 10/22/24 02/04/25 History gabapentin 300 mg capsule 300 mg PO Q12H 10/22/24 02/04/25 History nifedipine 30 mg tablet,extended 30 mg PO HS 10/22/24 02/04/25 History release insulin glargine 100 unit/mL (3 10 unit subcut QPM 11/26/24 02/04/25 History mL) subcutaneous pen (Basaglar KwikPen U-100 Insulin) ferrous sulfate 325 mg (65 mg 325 mg PO QDAY 02/04/25 02/04/25 History iron) tablet (FeroSul) Allergies Allergy/AdvReac Type Severity Reaction Status Date / Time No Known Allergies Allergy Verified 01/30/25 13:04 Visit Medications Magnesium Sulfate (Magnesium Sulfate Ivpb) 4 gm in 50 mls @ 12.5 mls/hr IV X1 ONE Stop: 02/04/25 02:31 Last Admin: 02/03/25 23:32 Dose: 12.5 mls/hr Discontinued Medications Acetaminophen (Acetaminophen 325 Mg Tablet) 650 mg PO X1 ONE Stop: 02/03/25 15:57 Last Admin: 02/03/25 16:11 Dose: 650 mg Sodium Chloride (Ns) 500 mls @ 999 mls/hr IV .Q31M ONE Stop: 02/03/25 17:58 Last Infusion: 02/03/25 18:58 Dose: Infused Ceftriaxone Sodium/Dextrose (Rocephin/D5w 1gm Iv Premix) 1 gm in 50 mls @ 100 mls/hr IV X1 ONE Stop: 02/03/25 17:57 Last Infusion: 02/03/25 18:39 Dose: Infused Lactated Ringer's (Lactated Ringers) 1,000 mls @ 999 mls/hr IV .Q1H1M ONE Stop: 02/03/25 19:04 Last Admin: 02/03/25 18:38 Dose: Not Given Lactated Ringer's (Lactated Ringers) 500 mls @ 999 mls/hr IV .Q31M ONE Stop: 02/03/25 18:34 Last Admin: 02/03/25 18:37 Dose: Not Given Ceftriaxone Sodium/Dextrose (Rocephin/D5w 1gm Iv Premix) 1 gm in 50 mls @ 100 mls/hr IV X1 ONE Stop: 02/03/25 18:33 Last Admin: 02/03/25 18:09 Dose: Not Given Lactated Ringer's (Lactated Ringers) 1,500 mls @ 999 mls/hr IV .Q1H31M ONE Stop: 02/03/25 19:34 Last Infusion: 02/03/25 20:11 Dose: Infused Ciprofloxacin/Dextrose (Cipro Ivpb) 400 mg in 200 mls @ 200 mls/hr IV X1 ONE Stop: 02/03/25 22:53 Last Infusion: 02/03/25 23:36 Dose: Infused Metronidazole (Flagyl 500 Mg Iv) 500 mg in 100 mls @ 100 mls/hr IV X1 ONE Stop: 02/03/25 22:53 Last Infusion: 02/03/25 23:36 Dose: Infused Assessment & Plan Plan 79-year-old female with history of metastatic colon cancer (s/p chemoradiation with CAPOX chemotherapy), colectomy with colostomy in August 2024, CKD, insulin-dependent diabetes mellitus with neuropathy, hypertension, hyperlipidemia, and anemia, presenting with a 2-day history of chills, weakness, and subjective fevers. Patient admitted for sepsis secondary to UTI. #Sepsis 2/2 #UTI #Pelvic abscess ? #History of ESBL UTI Sepsis due to UTI with acute sepsis-related organ dysfunction as evidence by lactic acidosis, 4.8 with repeat 4.0, procalcitonin 47.16 2-day history of chills, weakness, and subjective fevers. Her daughter reports a Tmax of 100.1 WBC 22.2 UA showed WBC 68, leuk esterase positive. Chest x-ray shows early bibasilar pneumonia CT Abdo/pelvis showed bilobed fluid collection in the pelvis 11 cm which projects above the urinary bladder and may represent an abscess versus dilated rectosigmoid colon In ED patient received 2 L of IVF, also received ceftriaxone 1 g, ciprofloxacin 400 mg, metronidazole 500 mg. Plan ? Started on meropenem given history of ESBL ? Maintenance fluids ? Radiology recommends obtaining a delayed CT scan of the pelvis with oral Gastrografin to assess 11 cm fluid collection in the pelvis above the urinary bladder and confirm abscess and exclude fluid distended rectosigmoid ? F/U Blood and Urine Cx #Lactic acidosis, improving Likely type B in the setting of sepsis On presentation LA was 4.8, with most recent repeat 2.6, patient received 2.5L IVF Plan ? Trending lactic acid every 4 hours ? Continue maintenance IVF #Type 2 diabetes mellitus, insulin-dependent #History of neuropathy Last A1c 5.6 12/04 Takes glargine 10 units subcut every afternoon Plan ? Insulin sliding scale ordered ? Hypoglycemia protocol in place #Metastatic colon cancer, on chemotherapy (Multiple mets) #Pulmonary nodular metastatic disease #Rectosigmoid tumor mass #S/p colectomy with colostomy (08/2024) Follows oncologist Dr. Lisa. On chemotherapy treatment. Plan ? Follow-up outpatient #CKD stage, IIIB Baseline eGFR in high 40s. On admission, creatinine 1.1, baseline 1.2-1.3. BNP elevated 471, euvolemic, elevation likely secondary to CKD as kidneys may not clear BNP efficiently versus age-related changes Plan: ? Monitor renal function daily ? Encourage oral hydration ? Avoid nephrotoxic drugs ? Renally dose medications as needed #HTN #HLD Lipid panel 11/27: trig 155, cholesterol 90, LDL 43, HDL 16. Takes carvedilol and nifedipine Plan ? Hold antihypertensives until sepsis clears Health Maintenance: Diet: Low carb consistent diet GI prophylaxis: None DVT prophylaxis: Lovenox Antibiotics: Meropenem CODE STATUS: Full Disposition: Telemetry Case discussed with my attending Dr. Dumont, and senior resident, Dr. Franck Wills MD PGY-1 Attending Provider Attestation/Addendum After examination of the patient and review of the clinical data I feel that this patient needs admission to the hospital for further treatment/evaluation. Plan of care discussed with patient and is in agreement. I Ct Dumont MD, attest that I was physically present for ureña portions of evaluation, and examined patient, labs and imagings and plan of care were discussed with IM residents team, and I agree with the findings and plans documented above.
[2025-02-04] MEDS: PIPER/TAZO 3.375 GM PREMIX 3.375 GM/50 ML BAG IV ×2 (00:35→05:17)
[2025-02-04] MEDS: RINGERS LACTATED 1000 ML 1,000 ML 100 ML IV (00:35)
[2025-02-04] MEDS: RINGERS LACTATED 500 ML 500 ML 999 ML IV (01:42)
[2025-02-04 02:54] LABS: Lactate (Lactic Acid) 2.8 mMol/L (0.4-2.0)
[2025-02-04 04:52] LABS: Lactate (Lactic Acid) 2.6 mMol/L (0.4-2.0)
[2025-02-04 04:58] LABS: Basophils # (Auto) 0.1 Thou/mm3 (0.0-0.2); Basophils % (Auto) 0 % (0-2.5); Eosinophils # (Auto) 0.1 Thou/mm3 (0.0-0.5); Eosinophils % (Auto) 0 % (0-10); Hematocrit 30.4 % (36.0-46.0); Hemoglobin 10.2 g/dL (12.0-16.0); Immature Granulocytes Auto 0.31 Thou/mm3 (0.00-0.00); Lymphocytes # (Auto) 1.0 Thou/mm3 (1.0-4.8); Lymphocytes % (Auto) 3 % (10-50); Mean Corpuscular HGB Conc 33.6 g/dl (31.0-37.0); Mean Corpuscular Hemoglobin 30.8 pg (25.0-35.0); Mean Corpuscular Volume 92 fL (80-100); Monocytes # (Auto) 0.3 Thou/mm3 (0.0-0.8); Monocytes % (Auto) 1 % (0-12); Neutrophils # (Auto) 27.8 Thou/mm3 (1.8-7.7); Neutrophils % (Auto) 94 % (37-80); Nucleated Red Blood Cell # 0.00 Thou/mm3 (0.00-0.00); Nucleated Red Blood Cell % 0 /100 WBC (0); Platelet Count 116 Thou/mm3 (140-440); RDW Standard Deviation 57.0 fL (36.4-46.3); Red Blood Count 3.31 Miln/mm3 (4.00-5.20); White Blood Count 29.5 Thou/mm3 (3.6-11.0)
[2025-02-04 05:51] LABS: Reflex Lactate? Y
--- NOTE | 2025-02-04 05:51 | ECHO_ITS ---
Patient Info Name: Janina Smith Age: 79 years : 1945 Gender: Female Ht: 152 cm Wt: 56 kg BSA: 1.55 m2 BP: 130 / 65 mmHg HR: 62 bpm Exam Date: 02/04/2025 8:58 AM Admit Date: 02/04/2025 Site: [facility] Room Number: [id number] Patient Status: I Exam Type: CA echo doppler complete Artificial Leather Calender Operator: Vandana Holt Ordering Physician: Ct Dumont Study Info Indications Establish baseline EF - Primary Location: S2NX Left Ventricular Outflow Tract Name Value Normal LVOT 2D LVOT Diameter 1.9 cm LVOT Doppler LVOT Peak Velocity 98 cm/s LVOT Mean Gradient 2 mmHg LVOT VTI 27 cm LVOT VTI/AV VTI Ratio 0.7 LVOT Stroke Volume 75 ml Pulmonic Valve Name Value Normal PV Doppler PV Peak Velocity 102 cm/s Mitral Valve Name Value Normal MV Doppler MV Mean Gradient 2 mmHg MV Decel [place] 574 cm/s2 MV PHT 55 ms MV Area (PHT) 4.0 cm2 4.0-5.0 MV Area (Cont Eq VTI) 1.6 cm2 MV Diastolic Function MV E Peak Velocity 109 cm/s MV A Peak Velocity 122 cm/s MV E/A 0.9 MV Annular TDI MV Septal e' Velocity 4.4 cm/s MV E/e' (Septal) 25.1 MV Lateral e' Velocity 4.7 cm/s MV E/e' (Lateral) 23.3 MV e' Average 4.52 cm/s MV E/e' (Average) 24.2 Tricuspid Valve Name Value Normal TV Regurgitation Doppler TR Peak Velocity 219 cm/s Estimated PAP/RSVP RA Pressure 8 mmHg <=5 PA Systolic Pressure 27 mmHg <36 RV Systolic Pressure 27 mmHg <36 TV Annular TDI TV Lateral Inés s' Velocity 11.6 cm/s >=9.5 Aortic Valve Name Value Normal AV 2D/MM AV Cusp Sep (MM) 1.3 cm AV Doppler AV Peak Velocity 164 cm/s AV Mean Gradient 6 mmHg AV VTI 40 cm AV Area (Cont Eq VTI) 1.9 cm2 >=3.0 AV Area (Cont Eq Jorge) 1.7 cm2 AV DI (Jorge) 0.60 AV Regurgitation 2D LVOT Area 2.8 cm2 Ventricles Name Value Normal LV Dimensions 2D/MM IVS Diastolic Thickness (2D) 0.9 cm 0.6-0.9 LVID Diastole (2D) 3.8 cm 3.8-5.2 LVIW Diastolic Thickness (2D) 1.2 cm 0.6-0.9 LVID Systole (2D) 2.7 cm 2.2-3.5 LVOT Diameter 1.9 cm LV Mass (2D Cubed) 125.82 g 67.00-162.00 LV Mass Index (2D Cubed) 81 g/m2 43-95 Relative Wall Thickness (2D) 0.63 <=0.42 IVS/LVIW Diastolic Thickness (2D) 0.75 0.00-1.50 LV Fractional Shortening/Ejection Fraction 2D/MM LV Fractional Shortening (2D) 29 % 27-45 LV EF (2D Teichholz) 56 % RV Dimensions 2D/MM TV Lateral Inés s' Velocity 11.6 cm/s >=9.5 Atria Name Value Normal LA Dimensions LA Volume (4C A-L) 83 ml LA Volume (BP A-L) 69 ml Left Ventricle Left ventricular chamber dimension is normal. Left ventricular systolic function is normal with visually estimated ejection fraction of 55-60%. There is mild concentric hypertrophy noted in the left ventricle. Left ventricular segmental wall motion is normal. There is grade I diastolic dysfunction in the left ventricle. Right Ventricle Right ventricular chamber dimension is normal. Right ventricular systolic function is normal. Left Atrium Left atrial chamber dimension is moderately enlarged. Right Atrium Right atrial chamber dimension is normal. Aortic Valve The aortic valve is trileaflet. There is moderate aortic valve sclerosis. There is mild aortic valve stenosis with a peak velocity of 164 cm/s, mean gradient of 6 mmHg, and aortic valve area of 1.9 cm2. There is no aortic valve regurgitation. Pulmonic Valve The pulmonic valve is normal. There is no pulmonic valve stenosis. There is no pulmonic regurgitation. Mitral Valve The mitral valve has thickened leaflets. There is mild mitral valve stenosis. There is trace mitral valve regurgitation. Tricuspid Valve The tricuspid valve leaflets are normal. There is no tricuspid valve stenosis. There is trace tricuspid valve regurgitation. No pulmonary hypertension, estimated pulmonary arterial systolic pressure is 27 mmHg and systemic blood pressure of 130 mmHg in systole. Pericardium/Pleural The pericardium appears normal. There is trivial pericardial effusion with no tamponade. No pleural effusion visualized. Inferior Vena Cava Normal inferior vena cava with >50% collapse upon inspiration consistent with normal right atrial pressure, 8 mmHg. Aorta The aortic measurements are indexed to age and body surface area. The aortic root at the sinus of Valsalva is not well visualized. The prox ascending aorta is not well visualized. Summary 1. Left ventricle size is normal and systolic function is normal. Estimated ejection fraction is 55-60%. There is grade I diastolic dysfunction. There is mild concentric hypertrophy noted. 2. Right ventricle chamber size is normal and systolic function is normal. Estimated RVSP is 27 mmHg. 3. There is moderate aortic valve sclerosis with mild stenosis and no regurgitation. 4. The left atrium is moderately enlarged. The right atrium is normal. 5. Trace TR and MR. Report Signatures Finalized by Rakesh Kam on 02/06/2025 02:22 PM
[2025-02-04] MEDS: MEROPENEM INJ 1,000 MG in SODIUM CHLORIDE 0.9% (Popper) 50 ML 100 MG IV ×2 (05:52→21:29)
[2025-02-04 06:31] LABS: Alanine Aminotransferase 41 U/L (10-49); Albumin, Serum 3.0 gm/dL (3.4-4.8); Albumin/Globulin Ratio 1.3 (1.2-2.2); Alkaline Phosphatase 119 U/L (46-116); Anion Gap 10 (7-16); Aspartate Amino Transferase 65 U/L (0-34); BUN/Creatinine Ratio 25 Ratio (12-20); Bilirubin,Total 0.4 mg/dL (0.3-1.2); Blood Urea Nitrogen 20 mg/dL (9-23); Calcium 8.1 mg/dL (8.3-10.6); Calcium (Corrected) 8.9 mg/dL (8.5-10.1); Carbon Dioxide 20.0 mMol/L (20.0-31.0); Chloride 110 mMol/L (98-107); Creatinine (Component) 0.8 mg/dL (0.6-1.3); Estimated Creatinine Clearance 44.2 mL/min (>60); Globulin 2.3 gm/dL (2.3-3.5); Glucose 136 mg/dL (74-106); Magnesium 2.4 mg/dL (1.6-2.6); Osmolality,Calculated 284 (275-295); Potassium 4.2 mMol/L (3.4-5.1); Sodium 140 mMol/L (136-145); Total Protein 5.3 gm/dL (5.7-8.2); eGFR > 60 See Note
--- NOTE | 2025-02-04 07:45 | EKG_ITS ---
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
[2025-02-04 07:46] LABS: Reflex Lactate? Y
[2025-02-04] MEDS: ENOXAPARIN SOD INJ 40 MG/0.4 ML SYRINGE SC (08:47)
[2025-02-04 09:06] LABS: Lactate (Lactic Acid) 2.9 mMol/L (0.4-2.0)
--- NOTE | 2025-02-04 09:42 | PC.SS ---
Follow up note: Surgery consulting. On IV antibiotic.
--- NOTE | 2025-02-04 10:04 | XR_ITS ---
Examination: CT abdomen with intravenous contrast CT pelvis with intravenous contrast 2-D coronal reconstructions 2-D sagittal reconstructions Date and time of exam: February 06, 2025, 1404 hours INDICATIONS: Pelvic abscess versus dilated bowel in the rectum on CT examination February 03, 2025. CTDI: vol (mGy) 28.5 DLP: (mGycm) 1095 Technique: Multiple axial sections of the abdomen and pelvis have been obtained. 64 slice high-resolution scanner used. 3 mm axial sections have been obtained, post intravenous injection 60 cc Isovue 370 2-D sagittal, coronal reconstructions obtained. Low dose protocols were performed. One or more of the following dose reduction techniques were used; automated exposure control, adjustment of the mA and/or KV according to patient size, use of iterative reconstruction technique. Findings: Metastatic pulmonary nodules No focal liver or splenic lesions No hydronephrosis Multiple fluid distended small bowel loops Left ileostomy 11 cm septated fluid-filled mass in the pelvis Urinary bladder contracted around a Nixon catheter IMPRESSION: 11 cm septated cystic mass in the pelvis, I do not have a history in this patient as to whether the rectosigmoid portion of the colon has been resected If the rectosigmoid colon has been resected, this appearance would be most consistent with pelvic abscess, clinical correlation advised
[2025-02-04] MEDS: DOXYCYCLINE INJ 100 MG in SODIUM CHLORIDE 0.9% (POP) 100 ML IV ×2 (11:07→20:34)
[2025-02-04 12:04] LABS: Reflex Lactate? Y
[2025-02-04 12:27] LABS: Lactic Acid, 3 HR 1.7 mMol/L (0.4-2.0)
--- NOTE | 2025-02-04 13:43 | ESPR_ITS ---
<Statement entered by Nubia Luo MD - 02/04/25 20:29> Patient was seen and examined at bedside. I agree on the assessment and plan on this note as documented by resident Dr Jaci Clements DO PGY1. 79-year-old female with past medical history as below admitted for sepsis secondary to urinary tract infection, bibasilar pneumonia and underlying 11 cm pelvic abscess. Patient was given IV fluid resuscitation per sepsis protocol, started on meropenem as patient has history of ESBL in the past, CT abdomen pelvis obtained on admission followed by CT abdomen pelvis with contrast positive for possible 11 cm abscess in the pelvis. Results were discussed with interventional radiologist Dr. Ribeiro per him, calcification is noted around the abscess, he suspects it to be possibly rectosigmoid versus uterine collection, general surgeon Dr. Carpenter was consulted along with SMELTER OPERATOR Dr. Velez for further recommendations regarding abscess. Operative report procured from patient's primary surgeon Dr. Mitchell for September 12, 2023 reports an oncological resection of rectum and anus. Findings were discussed with both general surgery and SMELTER OPERATOR, patient's blood culture positive for GNR. We will discuss case with patient's primary surgeon tomorrow morning, attempt will be made to reach out to Dr. Mitchell. Pending surgery and tower watchman recommendations. Case discussed with attending Dr. Ewa Alejandro MD PGY-2 Documentation for date of: 02/04/25 Subjective Subjective Interval history: Patient was seen and examined at bedside. No acute events took place overnight. Patient had presented with 2-day history of chills, weakness, and subjective fevers. Daughters at bedside reports that patient was receiving chemotherapy from a pump placed on Sunday scheduled to keep pushing the medication until Sunday. However, with the onset of fever >101F, the pump was removed yesterday. Although UA showed WBC 68, and positive leukocyte esterase, patient denies urinary symptoms including pain with urination, frequency or urgency. - Operative report from 09/12/2023 for resection of rectal cancer by Dr Mitchell Reports an oncological resection of the rectum and anus to have been performed successfully. Therefore, the fluid filled sacs as found on CT abdomen and pelvis could not be representing a dilated rectosigmoid colon. It's more likely that the patient has an 11cm pelvic abscess. Exam Vital Signs Temp Pulse Resp BP Pulse Ox O2 Del Method 97.1 F 66 18 167/74 H 98 Room Air 02/04/25 12:00 02/04/25 12:00 02/04/25 12:00 02/04/25 12:00 02/04/25 12:00 02/04/25 12:00 Narrative Exam General: AOx3, no acute distress, able to speak full sentences, Guatemalan-speaking HEENT: NC/AT, mucous membranes moist, bilateral sclera anicteric Cardiovascular: regular rate and rhythm, S1/S2 present, no murmurs appreciated Pulmonary: clear to auscultation bilaterally, no rales/rhonchi/wheezes Abdominal: soft, non-tender, non-distended, no rebound/guarding, normal bowel sounds present Musculoskeletal: normal ROM, no peripheral edema Skin: warm and dry, intact, no rashes, Neuro: CN II-XII intact, no focal deficits Objective Labs 02/04/25 04:25 02/04/25 04:25 Labs: Laboratory Results - last 24 hr 02/03/25 02/03/25 02/03/25 16:21 17:35 19:39 WBC 22.2 H D RBC 3.33 L Hgb 10.3 L Hct 30.4 L MCV 91 MCH 30.9 MCHC 33.9 RDW Std Deviation 54.5 H Plt Count 133 L D Neut % (Auto) 98 H Lymph % (Auto) 1 L [place] % (Auto) 0 Eos % (Auto) 0 Baso % (Auto) 0 Neut # (Auto) 21.7 H Lymph # (Auto) 0.3 L [place] # (Auto) 0.1 Eos # (Auto) 0.0 Baso # (Auto) 0.0 Immature Gran # (Auto) 0.16 H Absolute Nucleated RBC 0.00 Immature Gran % 1 H Nucleated RBC % 0 PT 13.2 H INR 1.3 APTT 27.3 VBG pH VBG pCO2 VBG pO2 VBG O2 Sat (Walker) VBG Base Excess Sodium 139 Potassium 3.5 Chloride 106 Carbon Dioxide 17.1 L Anion Gap 16 BUN 25 H Creatinine 1.1 Estim Creat Clear Calc Not Performed. eGFR 51 L BUN/Creatinine Ratio 23 H Glucose 186 H Calculated Osmolality 286 Lactic Acid 4.8 H* Calcium 8.8 Corrected Calcium 9.4 Phosphorus 2.7 Magnesium 1.3 L Total Bilirubin 0.5 AST 117 H ALT 56 H Alkaline Phosphatase 157 H Lactate Dehydrogenase 344 H Troponin I 0.026 B-Natriuretic Peptide 471 H* Total Protein 5.3 L Albumin 3.2 L Globulin 2.1 L Albumin/Globulin Ratio 1.5 Lipase 21 Procalcitonin 47.16 H Ur Collection Type Clean Catch Urine Color Yellow Urine Clarity Hazy Urine pH 5.5 Ur Specific [place] 1.019 Urine Protein 2+ A Urine Glucose (UA) Trace Urine Ketones Negative Urine Blood Negative Urine Nitrite Negative Urine Bilirubin Negative Urine Urobilinogen (Auto) Negative Ur Leukocyte Esterase Positive Urine RBC 51 H Urine WBC 68 H Ur Squamous Epith Cells < 1 Urine Bacteria Rare Hyaline Casts < 1 Urine Yeast (Budding) Present A SARS-CoV-2 Ag (Rapid) Negative 02/03/25 02/03/25 02/04/25 21:00 22:45 02:40 WBC RBC Hgb Hct MCV MCH MCHC RDW Std Deviation Plt Count Neut % (Auto) Lymph % (Auto) [place] % (Auto) Eos % (Auto) Baso % (Auto) Neut # (Auto) Lymph # (Auto) [place] # (Auto) Eos # (Auto) Baso # (Auto) Immature Gran # (Auto) Absolute Nucleated RBC Immature Gran % Nucleated RBC % PT INR APTT VBG pH 7.39 VBG pCO2 31 L VBG pO2 52 VBG O2 Sat (Walker) 89 L VBG Base Excess -5 L Sodium Potassium Chloride Carbon Dioxide Anion Gap BUN Creatinine Estim Creat Clear Calc eGFR BUN/Creatinine Ratio Glucose Calculated Osmolality Lactic Acid 4.0 H 2.8 H Calcium Corrected Calcium Phosphorus Magnesium Total Bilirubin AST ALT Alkaline Phosphatase Lactate Dehydrogenase Troponin I B-Natriuretic Peptide Total Protein Albumin Globulin Albumin/Globulin Ratio Lipase Procalcitonin Ur Collection Type Urine Color Urine Clarity Urine pH Ur Specific [place] Urine Protein Urine Glucose (UA) Urine Ketones Urine Blood Urine Nitrite Urine Bilirubin Urine Urobilinogen (Auto) Ur Leukocyte Esterase Urine RBC Urine WBC Ur Squamous Epith Cells Urine Bacteria Hyaline Casts Urine Yeast (Budding) SARS-CoV-2 Ag (Rapid) 02/04/25 02/04/25 02/04/25 04:25 08:44 12:15 WBC 29.5 H D RBC 3.31 L Hgb 10.2 L Hct 30.4 L MCV 92 MCH 30.8 MCHC 33.6 RDW Std Deviation 57.0 H Plt Count 116 L Neut % (Auto) 94 H Lymph % (Auto) 3 L [place] % (Auto) 1 Eos % (Auto) 0 Baso % (Auto) 0 Neut # (Auto) 27.8 H Lymph # (Auto) 1.0 [place] # (Auto) 0.3 Eos # (Auto) 0.1 Baso # (Auto) 0.1 Immature Gran # (Auto) 0.31 H Absolute Nucleated RBC 0.00 Immature Gran % 1 H Nucleated RBC % 0 PT INR APTT VBG pH VBG pCO2 VBG pO2 VBG O2 Sat (Walker) VBG Base Excess Sodium 140 Potassium 4.2 D Chloride 110 H Carbon Dioxide 20.0 Anion Gap 10 BUN 20 Creatinine 0.8 Estim Creat Clear Calc 44.2 L eGFR > 60 BUN/Creatinine Ratio 25 H Glucose 136 H D Calculated Osmolality 284 Lactic Acid 2.6 H 2.9 H 1.7 Calcium 8.1 L Corrected Calcium 8.9 Phosphorus Magnesium 2.4 Total Bilirubin 0.4 AST 65 H ALT 41 Alkaline Phosphatase 119 H D Lactate Dehydrogenase Troponin I B-Natriuretic Peptide Total Protein 5.3 L Albumin 3.0 L Globulin 2.3 Albumin/Globulin Ratio 1.3 Lipase Procalcitonin Ur Collection Type Urine Color Urine Clarity Urine pH Ur Specific [place] Urine Protein Urine Glucose (UA) Urine Ketones Urine Blood Urine Nitrite Urine Bilirubin Urine Urobilinogen (Auto) Ur Leukocyte Esterase Urine RBC Urine WBC Ur Squamous Epith Cells Urine Bacteria Hyaline Casts Urine Yeast (Budding) SARS-CoV-2 Ag (Rapid) ABG Interpretation ABG results: 02/03/25 22:45 VBG pH 7.39 VBG pCO2 31 L VBG pO2 52 VBG Base Excess -5 L Quality Measures Quality Measures none Advance care planning discussed with:: patient Assessment & Plan Assessment Current Active Medications: Generic Name Dose Route Start Last Admin Trade Name Freq PRN Reason Stop Dose Admin Acetaminophen 650 mg 02/04/25 00:06 Acetaminophen 325 Mg Tablet PO 03/06/25 00:05 Q6HR PRN PAIN (1-3) OR FEVER > 100.4 Dextrose 50 ml 02/04/25 00:12 Dextrose 50%-Water Inj 50 Ml Syringe IV 03/06/25 00:11 Q15MIN PRN BG <50 OR BG <70 & pt unresponsive Dextrose 25 ml 02/04/25 00:12 Dextrose 50%-Water Inj 50 Ml Syringe IV 03/06/25 00:11 Q15MIN PRN BG 50-70 responsive npo pt Glucagon 1 mg 02/04/25 00:12 Glucagon Inj 1 Mg Vial IM Q15MIN PRN BG <70, and no IV access Heparin Sodium (Porcine) 5,000 unit 02/04/25 21:00 Heparin Sod Inj 5000 Unit/Ml Vial SC 02/18/25 20:59 Q12HR MARION Meropenem 1,000 mg/ Sodium 50 mls @ 100 mls/hr 02/04/25 05:45 02/04/25 06:24 Chloride IV 02/11/25 05:44 Infused Q12HR MARION Infusion Doxycycline Hyclate 100 mg/ 100 mls @ 100 mls/hr 02/04/25 10:00 02/04/25 11:07 Sodium Chloride IV 02/11/25 09:59 100 mls/hr BID MARION Administration Ondansetron HCl 4 mg 02/04/25 00:06 Ondansetron Inj 2 Mg/Ml Inj 2 Ml IVP 03/06/25 00:05 Q6H PRN NAUSEA OR VOMITING Protocol Plan 79-year-old female with history of metastatic colon cancer (s/p chemoradiation with CAPOX chemotherapy), 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 Patient admitted for sepsis secondary to UTI. #GNR Bacteremia #Sepsis 2/ #UTI #?Pelvic abscess #History of ESBL UTI Sepsis due to UTI with acute sepsis-related organ dysfunction as evidence by lactic acidosis, 4.8 with repeat 4.0, procalcitonin 47.16 2-day history of chills, weakness, and subjective fevers. Her daughter reports a Tmax of 100.1 WBC 22.2 UA showed WBC 68, leuk esterase positive. Chest x-ray shows early bibasilar pneumonia CT Abdo/pelvis showed bilobed fluid collection in the pelvis 11 cm which projects above the urinary bladder and may represent an abscess versus dilated rectosigmoid colon In ED patient received 2 L of IVF, also received ceftriaxone 1 g, ciprofloxacin 400 mg, metronidazole 500 mg. - Operative report from 09/12/2023 for resection of rectal cancer by Dr Mitchell Reports an oncological resection of the rectum and anus to have been performed successfully. Therefore, the fluid filled sacs as found on CT abdomen and pelvis could not be representing a dilated rectosigmoid colon or have an association with those structures. It's more likely that the patient has an 11cm pelvic abscess. - SMELTER OPERATOR, Dr Velez, was consulted who states that the aformentioned abdominal lesion is unlikely to have a gynecological source. No gynocological intervention is necessary at this time. Plan ? Started on meropenem given history of ESBL ? Maintenance fluids ? Radiology recommends obtaining a delayed CT scan of the pelvis with oral Gastrografin to assess 11 cm fluid collection in the pelvis above the urinary bladder and confirm abscess and exclude fluid distended rectosigmoid ? F/U Blood and Urine Cx ?Surgery, Dr. Moreno, consulted; appreciate recommendations. #Lactic acidosis, improving Likely type B in the setting of sepsis On presentation LA was 4.8, with most recent repeat 2.6, patient received 2.5L IVF Plan ? Trending lactic acid every 4 hours ? Continue maintenance IVF #Type 2 diabetes mellitus, insulin-dependent #History of neuropathy Last A1c 5.6 12/04 Takes glargine 10 units subcut every afternoon Plan ? Insulin sliding scale ordered ? 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 Lisa. On chemotherapy treatment. Plan ? Follow-up outpatient #CKD stage, IIIB Baseline eGFR in high 40s. On admission, creatinine 1.1, baseline 1.2-1.3. BNP elevated 471, euvolemic, elevation likely secondary to CKD as kidneys may not clear BNP efficiently versus age-related changes Plan: ? Monitor renal function daily ? Encourage oral hydration ? Avoid nephrotoxic drugs ? Renally dose medications as needed #HTN #HLD Lipid panel 11/27: trig 155, cholesterol 90, LDL 43, HDL 16. Takes carvedilol and nifedipine Plan ? Hold antihypertensives until sepsis clears Health Maintenance: Diet: Low carb consistent diet GI prophylaxis: None DVT prophylaxis: Lovenox Antibiotics: Meropenem CODE STATUS: Full Disposition: Telemetry This case was discussed with my attending physician, Dr. Collado, and senior resident, Dr Luo. Even though this this note was carefully revised there may still be minor errors in access lead due to voice recognition software. Jaci Clements DO PGY I Attending Provider Attestation/Addendum IEwa DO, attest that I was physically present for the ureña portions of the service and evaluated the patient with the resident and I reviewed and discussed the case with the resident and agree with the resident's findings and plans of care as documented above Patient seen and evaluated this AM. Daughter at bedside. Patient reports no pain or discomfort in lower abdomen. She had sudden onset of fever yesterday, as well as chills. CT abd/pelvis shows 11cm pelvic abscess. However, radiology recommends BIKE ASSEMBLER consult due to concern for uterine involvement. Pending surgery recommendations. Started on meropenem due to hx of ESBL E.coli. Will f/u with cultures.
--- NOTE | 2025-02-04 15:12 | PC.SS ---
SS met with patient and dtrJanina regarding patient's d/c plan. Pt is alert/oriented. Pt was admitted for Sepsis 2/2 UTI. Pt confirmed demographic and contact information is correct on facesheet. Pt resides with daughter and family. Pt transfers into wheelchair with assistance. Pt requires assistance with all ADLS. Patient namer her daughter, Albertina Rae medical decision maker if she is unable. Patient?s choice is to return home upon d/c. Pt is diabetic, has glucometer, and test strips. Pt is not on dialysis. Dtr will provide transportation home. Pt followed up with PCP in January. D/C plan: Return home Next of Kin: Albertina Rae, daughter, phone# [phone] PCP: Radha Cristobal [facility] in [place] Address: Correct on facesheet
--- NOTE | 2025-02-04 16:27 | PD.GYNCONS ---
AGRICULTURE CONSULTANT HPI Data of Consult Patient: known to practice within the last 3 years Consult date: 02/04/25 Requesting Physician: Ewa Collado DO Primary Care Provider: Radha Cristobal PA-C Consult Narrative Reason for consult: pelvic mass History of present illness: The patient is an 79-year-old G9, P9 who presented with 2-day history of chills, weakness, and subjective fevers. Daughters at bedside report that patient was receiving chemotherapy from a pump placed on Sunday scheduled to keep pushing the medication until Sunday. However, with the onset of fever >101F, the pump was removed yesterday. The patient has a known history of metastatic colon cancer status post robotic surgery with placement of permanent colectomy in [place] in August 2023. She is status post chemo and radiation. On imaging this admission, she has a bilobed 11 cm fluid collection in her pelvis. Gynecology was consulted to make sure this is not a intrauterine fluid collection. Of note, the patient is Chadian-speaking only and the entire exam and history is obtained with genaro Bautista RN at bedside. Three of her daughters are present during the interview. The patient lives with one of the daughters. The daughter stated that the patient has had no vaginal bleeding. Sometimes she has bleeding from the rectum. She has an indwelling Nixon catheter and her urine is clear. No foul discharge from her vagina on her pads. The patient is and not sexually active. She went through menopause at age 49. A transvaginal ultrasound was attempted in October 2024 when the patient was admitted and apparently they could not advance the probe secondary to patient discomfort. That ultrasound did reveal a 9 cm uterus. The ovaries were not seen well. The daughters state the patient has not had a hysterectomy. On this admission, the patient has an elevated white count and the family wanted the blood drawn through her port and it is positive for gram-negative rods. The patient's family states she is a full code. Although UA showed WBC 68, and positive leukocyte esterase, patient denies urinary symptoms including pain with urination, frequency or urgency. The Operative report from 09/12/2023 for resection of rectal cancer by Dr Mitchell was reviewed and is on the chart. I reviewed the CT images and the fluid collection on this admission and it appears to be too high in her abdomen to involve her uterus. I am unsure whether the primary team wants to consult radiology to drain this fluid collection or whether this is appropriate or not. I do not think the patient needs gynecological intervention in the form of a hysterectomy or hysteroscopy at this time as she is having no gynecological symptoms. cc:: cc: Ewa Collado, Past Medical History Past Medical History Comments PMH COMMENT: Per chart review: Type 2 diabetes Hypertension Metastatic rectal cancer diagnosed in 2022 Neuropathy Hyperlipidemia Chronic kidney disease Past surgical history: Colon surgery with colectomy in [place] in August 2023 Cholecystectomy in 2019 x 9 Left hip replacement Meds Home Medications and Allergies Home Medications ?Medication ?Instructions ?Recorded ?Confirmed ?Type carvedilol 3.125 mg tablet 3.125 mg PO BID 10/22/24 02/04/25 History gabapentin 300 mg capsule 300 mg PO Q12H 10/22/24 02/04/25 History nifedipine 30 mg tablet,extended 30 mg PO HS 10/22/24 02/04/25 History release insulin glargine 100 unit/mL (3 10 unit subcut QPM 11/26/24 02/04/25 History mL) subcutaneous pen (Basaglar KwikPen U-100 Insulin) ferrous sulfate 325 mg (65 mg 325 mg PO QDAY 02/04/25 02/04/25 History iron) tablet (FeroSul) Allergies Allergy/AdvReac Type Severity Reaction Status Date / Time No Known Allergies Allergy Verified 01/30/25 13:04 Exam - AGRICULTURE CONSULTANT Vital Signs Temp Pulse Resp BP Pulse Ox O2 Del Method 97.1 F 66 18 167/74 H 98 Room Air 02/04/25 12:00 02/04/25 12:00 02/04/25 12:00 02/04/25 12:00 02/04/25 12:00 02/04/25 12:00 Narrative Exam Patient is awake. She does not talk during the interview. She is being fed a sandwich by one of her daughters while I was rounding on her. Constitutional Constitutional: no acute distress, thin and cooperative Routine Abdominal Exam Abdominal: Present soft and ostomy Comments: Abdomen is soft nondistended nontender I cannot palpate any mass. She has a colostomy bag. Pelvic exam deferred AGRICULTURE CONSULTANT - Results Labs 02/04/25 04:25 02/04/25 04:25 Labs: Short CBC 02/03/25 02/04/25 Range/Units 17:35 04:25 WBC 22.2 H D 29.5 H D (3.6-11.0) Thou/mm3 Hgb 10.3 L 10.2 L (12.0-16.0) g/dL Hct 30.4 L 30.4 L (36.0-46.0) % Plt Count 133 L D 116 L (140-440) Thou/mm3 BMP 02/03/25 02/04/25 17:35 04:25 Sodium 139 140 Potassium 3.5 4.2 D Chloride 106 110 H Carbon Dioxide 17.1 L 20.0 BUN 25 H 20 Creatinine 1.1 0.8 Glucose 186 H 136 H D Calcium 8.8 8.1 L Cardiac Enzymes 02/03/25 Range/Units 17:35 Troponin I 0.026 (0.0-0.045) ng/mL Liver Function 02/03/25 02/04/25 Range/Units 17:35 04:25 Total Bilirubin 0.5 0.4 (0.3-1.2) mg/dL AST 117 H 65 H (0-34) U/L ALT 56 H 41 (10-49) U/L Alkaline Phosphatase 157 H 119 H D (46-116) U/L Albumin 3.2 L 3.0 L (3.4-4.8) gm/dL Urine 02/03/25 Range/Units 16:21 Urine Color Yellow (Lt Yel-Yel) Urine Clarity Hazy (Clear/Hazy) Urine pH 5.5 (5.0-7.0) Ur Specific [place] 1.019 (1.001-1.035) Urine Protein 2+ A (Neg - Trace) Urine Glucose (UA) Trace (Negative) ABG Interpretation ABG results: 02/03/25 22:45 VBG pH 7.39 VBG pCO2 31 L VBG pO2 52 VBG Base Excess -5 L Assessment and Plan Assessment and plan (1) History of colon cancer: Status: Acute (2) Intra-abdominal abscess: Status: Acute Assessment and plan: Likely not gynecological in the source. Will defer to primary team for management. At this time would recommend no gynecological intervention. (3) Cancer, metastatic: Status: Acute Assessment and plan: Patient is a full code. May need discussion on long-term treatment goals with the patient and her extended family. (3) Cancer, metastatic Qualifiers: Area of secondary neoplastic involvement: respiratory structure
--- NOTE | 2025-02-04 18:34 | PD.SURCONS ---
HPI Consult details Consult date: 02/04/25 Reason for consultation narrative: The patient was seen on consultation because of pelvic abscess History of present illness: History of present illness revealed that the patient has undergone resection of the rectosigmoid cancer with a permanent colostomy and is on chemotherapy. She has developed a collection in the pelvis suspicious for abscess. She had this drained in November by our radiologist but now she is back with fever and bacteremia. Patient does not have any pain. Patient underwent surgery for rectal cancer. In September 2023 in [place]. At the present time patient is eating and tolerating food and having bowel function through the colostomy Meds Home Medications and Allergies Home Medications ?Medication ?Instructions ?Recorded ?Confirmed ?Type carvedilol 3.125 mg tablet 3.125 mg PO BID 10/22/24 02/04/25 History gabapentin 300 mg capsule 300 mg PO Q12H 10/22/24 02/04/25 History nifedipine 30 mg tablet,extended 30 mg PO HS 10/22/24 02/04/25 History release insulin glargine 100 unit/mL (3 10 unit subcut QPM 11/26/24 02/04/25 History mL) subcutaneous pen (Basaglar KwikPen U-100 Insulin) ferrous sulfate 325 mg (65 mg 325 mg PO QDAY 02/04/25 02/04/25 History iron) tablet (FeroSul) Allergies Allergy/AdvReac Type Severity Reaction Status Date / Time No Known Allergies Allergy Verified 01/30/25 13:04 Exam Vital Signs Temp Pulse Resp BP Pulse Ox O2 Del Method 98.2 F 61 19 158/69 H 98 Room Air 02/04/25 16:00 02/04/25 16:00 02/04/25 16:00 02/04/25 16:00 02/04/25 16:00 02/04/25 16:00 Narrative Exam Physical examination revealed an 79-year-old female with normal vital signs Routine Abdominal Exam Comments: Examination of the abdomen showed no masses palpable. Patient has a colostomy that is draining solid stool. Rectal examination is not possible because the tumor has completely closed at the anus Results Results: Laboratory Laboratory Narrative: Patient's laboratory workup shows leukocytosis and bacteremia Results: Imaging Imaging narrative: CT scan was reviewed and shows collection with calcification in the pelvis which is very unusual for an abscess. Assessment & Plan Additional Assessment Additional comments: Impression: Pelvic collection the etiology of which is not known Recurrent tumor of the rectum Plan Plan: I will not be able to explore this patient to drain this abscess because it will be a frozen pelvis to get into the abdomen with the recurrent tumor. Only percutaneous drainage is an option but I am not even sure if this is an abscess because the wall of the collection is calcified. I suggest we contact the surgeon who performed the procedure and see whether he wants to see During follow-up. Thank you very much
[2025-02-04] MEDS: NIFEdipine XL 30 MG TABCR PO (20:35)
[2025-02-04] MEDS: INSULIN LISPRO (AdmeLOG) 1 UNIT/0.01 ML UNIT SC (20:35)
[2025-02-04] MEDS: HEPARIN SOD INJ 5000 UNIT/ML VIAL SC (20:35)
[2025-02-05] VITALS (12 sets, daily range): BP systolic 110–155; BP diastolic 57–86; PULSE 54–101; RESP 12–98; TEMP 36–37.1; O2SAT 96–99; BMI 25.0
[2025-02-05 05:39] LABS: Basophils # (Auto) 0.0 Thou/mm3 (0.0-0.2); Basophils % (Auto) 0 % (0-2.5); Eosinophils # (Auto) 0.1 Thou/mm3 (0.0-0.5); Eosinophils % (Auto) 0 % (0-10); Hematocrit 34.5 % (36.0-46.0); Hemoglobin 11.8 g/dL (12.0-16.0); Immature Granulocytes Auto 0.11 Thou/mm3 (0.00-0.00); Lymphocytes # (Auto) 0.9 Thou/mm3 (1.0-4.8); Lymphocytes % (Auto) 5 % (10-50); Mean Corpuscular HGB Conc 34.2 g/dl (31.0-37.0); Mean Corpuscular Hemoglobin 31.2 pg (25.0-35.0); Mean Corpuscular Volume 91 fL (80-100); Monocytes # (Auto) 0.0 Thou/mm3 (0.0-0.8); Monocytes % (Auto) 0 % (0-12); Neutrophils # (Auto) 15.5 Thou/mm3 (1.8-7.7); Neutrophils % (Auto) 93 % (37-80); Nucleated Red Blood Cell # 0.00 Thou/mm3 (0.00-0.00); Nucleated Red Blood Cell % 0 /100 WBC (0); Platelet Count 93 Thou/mm3 (140-440); RDW Standard Deviation 57.6 fL (36.4-46.3); Red Blood Count 3.78 Miln/mm3 (4.00-5.20); White Blood Count 16.6 Thou/mm3 (3.6-11.0)
[2025-02-05 06:10] LABS: Alanine Aminotransferase 30 U/L (10-49); Albumin, Serum 3.4 gm/dL (3.4-4.8); Albumin/Globulin Ratio 1.4 (1.2-2.2); Alkaline Phosphatase 131 U/L (46-116); Anion Gap 10 (7-16); Aspartate Amino Transferase 38 U/L (0-34); BUN/Creatinine Ratio 21 Ratio (12-20); Bilirubin,Total 0.7 mg/dL (0.3-1.2); Blood Urea Nitrogen 19 mg/dL (9-23); Calcium 8.5 mg/dL (8.3-10.6); Calcium (Corrected) 9.0 mg/dL (8.5-10.1); Carbon Dioxide 22.4 mMol/L (20.0-31.0); Chloride 108 mMol/L (98-107); Creatinine (Component) 0.9 mg/dL (0.6-1.3); Estimated Creatinine Clearance 39.8 mL/min (>60); Globulin 2.5 gm/dL (2.3-3.5); Glucose 108 mg/dL (74-106); Magnesium 2.0 mg/dL (1.6-2.6); Osmolality,Calculated 282 (275-295); Phosphorous 2.8 mg/dL (2.4-5.1); Potassium 3.9 mMol/L (3.4-5.1); Sodium 140 mMol/L (136-145); Total Protein 5.9 gm/dL (5.7-8.2); eGFR > 60 See Note
[2025-02-05] MEDS: ONDANSETRON INJ 2 MG/ML INJ 2 ML 4 MG IVP (07:36)
[2025-02-05] MEDS: DOXYCYCLINE INJ 100 MG in SODIUM CHLORIDE 0.9% (POP) 100 ML IV ×2 (08:11→21:21)
[2025-02-05] MEDS: ACETAMINOPHEN 325 MG TABLET 650 MG PO (08:11)
[2025-02-05] MEDS: POTASSIUM CHLORIDE 10% 20 MEQ/15 ML UDC PO (08:11)
[2025-02-05] MEDS: HEPARIN SOD INJ 5000 UNIT/ML VIAL SC ×2 (08:12→20:17)
[2025-02-05] MEDS: MEROPENEM INJ 1,000 MG in SODIUM CHLORIDE 0.9% (Popper) 50 ML 100 MG IV ×2 (09:19→20:16)
[2025-02-05] MEDS: GABAPENTIN 300 MG CAPSULE PO ×2 (09:39→20:17)
[2025-02-05] MEDS: HYDROcodone/APAP 5/325 TABLET 1 TAB PO (09:39)
--- NOTE | 2025-02-05 15:03 | PD.RESPRO ---
Documentation for date of: 02/05/25 Subjective Subjective Interval history: Patient seen and examined at bedside. No current complaints, denies any fever/chills. Tolerating antibiotics well, good output from colostomy. Pending CT with oral contrast, was evaluated by general surgery and [employer] yesterday, they recommend no current intervention. Reached out to patient's primary general surgeon Dr Tien Mitchell at [facility] He recommends that patient undergo IR drainage with drain placement, if patient is stable to be discharged outpatient and follow-up with his office If patient's condition deteriorates he recommends to inform him and initiate transfer to [facility] Exam Vital Signs Temp Pulse Resp BP Pulse Ox O2 Del Method 97.5 F 75 18 110/57 L 96 Room Air 02/05/25 11:47 02/05/25 11:47 02/05/25 11:47 02/05/25 11:47 02/05/25 11:47 02/05/25 11:47 Narrative Exam General: AOx3, no acute distress, able to speak full sentences, [place]ian-speaking HEENT: NC/AT, mucous membranes moist, bilateral sclera anicteric Cardiovascular: regular rate and rhythm, S1/S2 present, no murmurs appreciated Pulmonary: clear to auscultation bilaterally, no rales/rhonchi/wheezes Abdominal: soft, non-tender, non-distended, no rebound/guarding, normal bowel sounds present, colostomy bag noted. Musculoskeletal: normal ROM, no peripheral edema Skin: warm and dry, intact, no rashes, Neuro: CN II-XII intact, no focal deficits Objective Labs 02/06/25 05:00 02/06/25 05:07 Labs: Laboratory Results - last 24 hr 02/05/25 05:23 WBC 16.6 H D RBC 3.78 L Hgb 11.8 L Hct 34.5 L MCV 91 MCH 31.2 MCHC 34.2 RDW Std Deviation 57.6 H Plt Count 93 L Neut % (Auto) 93 H Lymph % (Auto) 5 L [place] % (Auto) 0 Eos % (Auto) 0 Baso % (Auto) 0 Neut # (Auto) 15.5 H Lymph # (Auto) 0.9 L [place] # (Auto) 0.0 Eos # (Auto) 0.1 Baso # (Auto) 0.0 Immature Gran # (Auto) 0.11 H Absolute Nucleated RBC 0.00 Immature Gran % 1 H Nucleated RBC % 0 Sodium 140 Potassium 3.9 Chloride 108 H Carbon Dioxide 22.4 Anion Gap 10 BUN 19 Creatinine 0.9 Estim Creat Clear Calc 39.8 L eGFR > 60 BUN/Creatinine Ratio 21 H Glucose 108 H Calculated Osmolality 282 Calcium 8.5 Corrected Calcium 9.0 Phosphorus 2.8 Magnesium 2.0 Total Bilirubin 0.7 AST 38 H ALT 30 Alkaline Phosphatase 131 H Total Protein 5.9 Albumin 3.4 Globulin 2.5 Albumin/Globulin Ratio 1.4 ABG Interpretation ABG results: 02/03/25 22:45 VBG pH 7.39 VBG pCO2 31 L VBG pO2 52 VBG Base Excess -5 L Quality Measures Quality Measures VTE prophylaxis and none Advance care planning discussed with:: patient Assessment & Plan Assessment Current Active Medications: Generic Name Dose Route Start Last Admin Trade Name Freq PRN Reason Stop Dose Admin Acetaminophen 650 mg 02/04/25 00:06 02/05/25 08:11 Acetaminophen 325 Mg Tablet PO 03/06/25 00:05 650 mg Q6HR PRN Administration PAIN (1-3) OR FEVER > 100.4 Hydrocodone Bitart/Acetaminophen 1 tab 02/05/25 09:28 02/05/25 09:39 Hydrocodone/Apap 5/325 Tablet PO 02/10/25 09:27 1 tab Q6HR PRN Administration PAIN SCALE 4-10(Mod-Sev Dextrose 50 ml 02/04/25 00:12 Dextrose 50%-Water Inj 50 Ml Syringe IV 03/06/25 00:11 Q15MIN PRN BG <50 OR BG <70 & pt unresponsive Dextrose 25 ml 02/04/25 00:12 Dextrose 50%-Water Inj 50 Ml Syringe IV 03/06/25 00:11 Q15MIN PRN BG 50-70 responsive npo pt Gabapentin 300 mg 02/05/25 09:30 02/05/25 09:39 Gabapentin 300 Mg Capsule PO 03/07/25 09:29 300 mg Q12HR MARION Administration Glucagon 1 mg 02/04/25 00:12 Glucagon Inj 1 Mg Vial IM Q15MIN PRN BG <70, and no IV access Heparin Sodium (Porcine) 5,000 unit 02/04/25 21:00 02/05/25 08:12 Heparin Sod Inj 5000 Unit/Ml Vial SC 02/18/25 20:59 5,000 unit Q12HR MARION Administration Meropenem 1,000 mg/ Sodium 50 mls @ 100 mls/hr 02/04/25 05:45 02/05/25 09:19 Chloride IV 02/11/25 05:44 100 mls/hr Q12HR MARION Administration Doxycycline Hyclate 100 mg/ 100 mls @ 100 mls/hr 02/04/25 10:00 02/05/25 08:11 Sodium Chloride IV 02/11/25 09:59 100 mls/hr BID MARION Administration Insulin Human Lispro 0 unit 02/04/25 21:00 02/05/25 11:33 Insulin Lispro (Admelog) 1 Unit/0.01 Ml Unit SC 03/06/25 20:59 Not Given ACHS MARION Protocol Nifedipine 30 mg 02/04/25 21:00 02/04/25 20:35 Nifedipine Xl 30 Mg Tabcr PO 03/06/25 20:59 30 mg HS MARION Administration Ondansetron HCl 4 mg 02/04/25 00:06 02/05/25 07:36 Ondansetron Inj 2 Mg/Ml Inj 2 Ml IVP 03/06/25 00:05 4 mg Q6H PRN Administration NAUSEA OR VOMITING Protocol Plan 79-year-old female with history of metastatic colon cancer (s/p chemoradiation with CAPOX chemotherapy), colectomy with colostomy in August 2024, CKD, insulin-dependent diabetes mellitus with neuropathy, hypertension, hyperlipidemia, and anemia, presenting with a 2-day history of chills, weakness, and subjective fevers. Patient admitted for sepsis secondary to UTI. #1/2 GNR Bacteremia #Urinary tract infection #11 cm Pelvic abscess #History of ESBL UTI Sepsis due to UTI with acute sepsis-related organ dysfunction as evidence by lactic acidosis, 4.8 with repeat 4.0, procalcitonin 47.16 2-day history of chills, weakness, and subjective fevers. Her daughter reports a Tmax of 100.1 WBC 22.2 UA showed WBC 68, leuk esterase positive. Chest x-ray shows early bibasilar pneumonia CT Abdo/pelvis showed bilobed fluid collection in the pelvis 11 cm which projects above the urinary bladder and may represent an abscess versus dilated rectosigmoid colon In ED patient received 2 L of IVF, also received ceftriaxone 1 g, ciprofloxacin 400 mg, metronidazole 500 mg. - Operative report from 09/12/2023 for resection of rectal cancer by Dr Mitchell Reports an oncological resection of the rectum and anus to have been performed successfully. Therefore, the fluid filled sacs as found on CT abdomen and pelvis could not be representing a dilated rectosigmoid colon or have an association with those structures. It's more likely that the patient has an 11cm pelvic abscess. - PA[employer] MACHINE, Dr Velez, was consulted who states that the aformentioned abdominal lesion is unlikely to have a gynecological source. No gynocological intervention is necessary at this time. - General Surgery recommended reaching out to patient's primary surgeon Dr Tien Mitchell at [facility] - Discussed with Dr. Mitchell he recommends that patient undergo IR drainage with drain placement, if patient is stable to be discharged outpatient and follow-up with his office. If patient's condition deteriorates he recommends to inform him and initiate transfer to [facility] Plan ? Continue meropenem (02/03- ? Will plan for IR drainage with drain placement on Sunday ? Follow-up culture speciation ? Follow-up CT with oral contrast to assess for fistula #Type 2 diabetes mellitus, insulin-dependent #History of neuropathy Last A1c 5.6 12/04 Takes glargine 10 units subcut every afternoon Plan ? Insulin sliding scale ordered ? 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 Lisa. On chemotherapy treatment. Plan ? Follow-up outpatient #CKD stage, IIIB Baseline eGFR in high 40s. On admission, creatinine 1.1, baseline 1.2-1.3. BNP elevated 471, euvolemic, elevation likely secondary to CKD as kidneys may not clear BNP efficiently versus age-related changes Plan: ? Monitor renal function daily ? Encourage oral hydration ? Avoid nephrotoxic drugs ? Renally dose medications as needed #HTN #HLD Lipid panel 11/27: trig 155, cholesterol 90, LDL 43, HDL 16. Takes carvedilol and nifedipine Plan ? Continue to hold antihypertensives #Lactic acidosis, resolved Health Maintenance: Diet: Low carb consistent diet GI prophylaxis: Not indicated DVT prophylaxis: Heparin every 12 hours Antibiotics: Meropenem CODE STATUS: Full Disposition: Telemetry This case was discussed with my attending physician, Dr. Tobias Luo PGY2 Internal medicine Attending Provider Attestation/Addendum Ewa House DO, attest that I was physically present for the ureña portions of the service and evaluated the patient with the resident and I reviewed and discussed the case with the resident and agree with the resident's findings and plans of care as documented above Patient seen and evaluation this AM. She complains of chills and myalgias. Explained to family at bedside that patient has GNR bacteremia as cause of her symptoms. Will need to wait for another 24h for further speciation and narrowing of IV abx. As per pelvic abscess, patient was seen by OBGYN yesterday and does not suspect that abscess is associated with uterus as it is too high up in abdomen. Patient was also seen by Gen/surg who also recommends IR intervention for further drainage of pelvic abscess. Patient's surgeon at [facility] was contacted and recommends IR drainage of abscess. Patient can be discharged with drain and follow up with him outpatient. Will await for Sunday to have drain placed by IR as they are not available over . Patient continues to have no pain in her abdomen.She remains afebrile as well.
[2025-02-05] MEDS: INSULIN LISPRO (AdmeLOG) 1 UNIT/0.01 ML UNIT SC ×2 (16:48→20:45)
[2025-02-05] MEDS: NIFEdipine XL 30 MG TABCR PO (20:20)
[2025-02-06] VITALS: BP 111/63; PULSE 57; PULSE 63; RESP 26; TEMP 36.1; O2SAT 97
[2025-02-06 04:00] VITALS: BP 120/63; PULSE 62; PULSE 68; RESP 16; TEMP 36.6; O2SAT 99
[2025-02-06 05:11] VITALS: BMI 25.0
[2025-02-06 05:40] LABS: Basophils # (Auto) 0.0 Thou/mm3 (0.0-0.2); Basophils % (Auto) 0 % (0-2.5); Eosinophils # (Auto) 0.1 Thou/mm3 (0.0-0.5); Eosinophils % (Auto) 1 % (0-10); Hematocrit 27.9 % (36.0-46.0); Hemoglobin 9.5 g/dL (12.0-16.0); Immature Granulocytes Auto 0.09 Thou/mm3 (0.00-0.00); Lymphocytes # (Auto) 1.4 Thou/mm3 (1.0-4.8); Lymphocytes % (Auto) 10 % (10-50); Mean Corpuscular HGB Conc 34.1 g/dl (31.0-37.0); Mean Corpuscular Hemoglobin 31.1 pg (25.0-35.0); Mean Corpuscular Volume 92 fL (80-100); Monocytes # (Auto) 0.2 Thou/mm3 (0.0-0.8); Monocytes % (Auto) 1 % (0-12); Neutrophils # (Auto) 12.3 Thou/mm3 (1.8-7.7); Neutrophils % (Auto) 88 % (37-80); Nucleated Red Blood Cell # 0.00 Thou/mm3 (0.00-0.00); Nucleated Red Blood Cell % 0 /100 WBC (0); Platelet Count 81 Thou/mm3 (140-440); RDW Standard Deviation 57.4 fL (36.4-46.3); Red Blood Count 3.05 Miln/mm3 (4.00-5.20); White Blood Count 14.0 Thou/mm3 (3.6-11.0)
[2025-02-06 06:11] LABS: Alanine Aminotransferase 18 U/L (10-49); Albumin, Serum 3.0 gm/dL (3.4-4.8); Albumin/Globulin Ratio 1.4 (1.2-2.2); Alkaline Phosphatase 102 U/L (46-116); Anion Gap 10 (7-16); Aspartate Amino Transferase 19 U/L (0-34); BUN/Creatinine Ratio 26 Ratio (12-20); Bilirubin,Total 0.6 mg/dL (0.3-1.2); Blood Urea Nitrogen 26 mg/dL (9-23); Calcium 8.2 mg/dL (8.3-10.6); Calcium (Corrected) 9.0 mg/dL (8.5-10.1); Carbon Dioxide 22.5 mMol/L (20.0-31.0); Chloride 107 mMol/L (98-107); Creatinine (Component) 1.0 mg/dL (0.6-1.3); Estimated Creatinine Clearance 35.9 mL/min (>60); Globulin 2.2 gm/dL (2.3-3.5); Glucose 117 mg/dL (74-106); Magnesium 1.9 mg/dL (1.6-2.6); Osmolality,Calculated 283 (275-295); Phosphorous 2.9 mg/dL (2.4-5.1); Potassium 4.1 mMol/L (3.4-5.1); Sodium 139 mMol/L (136-145); Total Protein 5.2 gm/dL (5.7-8.2); eGFR 57 See Note
[2025-02-06 08:00] VITALS: BP 120/61; PULSE 72; PULSE 78; RESP 13; TEMP 36.4; O2SAT 96
[2025-02-06] MEDS: GABAPENTIN 300 MG CAPSULE PO ×2 (08:15→20:15)
[2025-02-06] MEDS: MEROPENEM INJ 1,000 MG in SODIUM CHLORIDE 0.9% (Popper) 50 ML 100 MG IV ×2 (08:16→21:09)
[2025-02-06] MEDS: DOXYCYCLINE INJ 100 MG in SODIUM CHLORIDE 0.9% (POP) 100 ML IV ×2 (08:16→20:14)
[2025-02-06] MEDS: HEPARIN SOD INJ 5000 UNIT/ML VIAL SC ×2 (08:16→20:15)
--- NOTE | 2025-02-06 08:37 | PC.SS ---
Follow up note: Sunday will have IR drain placed in abscess. Pt will return home upon dc.
[2025-02-06] MEDS: Magnesium Sulfate 2 GM Ivpb 2 GM/50 ML BAG IV (10:14)
[2025-02-06] MEDS: RINGERS LACTATED 500 ML 500 ML 70 ML IV (10:21)
[2025-02-06 12:00] VITALS: BP 127/68; PULSE 73; PULSE 83; RESP 22; TEMP 36.6; O2SAT 97
--- NOTE | 2025-02-06 13:07 | ESPR_ITS ---
Documentation for date of: 02/06/25 Subjective Subjective Interval history: Patient seen and examined at bedside. No current complaints, denies any fever/chills. Tolerating antibiotics well, good output from colostomy. Blood cultures resulted as E. coli sensitive to meropenem, we will continue meropenem as patient did have a UTI recently with Pseudomonas resistant to Zosyn. Will continue with another day of doxycycline. Reached out to patient's primary general surgeon yesterday Dr Tien Mitchell at [facility] [place] He recommends that patient undergo IR drainage with drain placement, if patient is stable to be discharged outpatient and follow-up with his office If patient's condition deteriorates he recommends to inform him and initiate transfer to [facility] Explained to patient regarding the plan, patient will undergo IR guided drainage with drain placement on Sunday a.m. Pending CT with oral contrast, Exam Vital Signs Temp Pulse Resp BP Pulse Ox O2 Del Method O2 Flow Rate 97.5 F 72 13 120/61 96 Room Air 1 02/06/25 08:00 02/06/25 08:00 02/06/25 08:00 02/06/25 08:00 02/06/25 08:00 02/06/25 08:00 02/05/25 20:00 Narrative Exam General: AOx3, no acute distress, able to speak full sentences, [place]-speaking HEENT: NC/AT, mucous membranes moist, bilateral sclera anicteric Cardiovascular: regular rate and rhythm, S1/S2 present, no murmurs appreciated Pulmonary: clear to auscultation bilaterally, no rales/rhonchi/wheezes Abdominal: soft, non-tender, non-distended, no rebound/guarding, normal bowel sounds present, colostomy bag noted. Musculoskeletal: normal ROM, no peripheral edema Skin: warm and dry, intact, no rashes, Neuro: CN II-XII intact, no focal deficits Objective Labs 02/07/25 05:05 02/07/25 05:05 Labs: Laboratory Results - last 24 hr 02/03/25 02/06/25 02/06/25 17:35 05:00 05:07 WBC 22.2 H D 14.0 H RBC 3.33 L 3.05 L Hgb 10.3 L 9.5 L D Hct 30.4 L 27.9 L MCV 91 92 MCH 30.9 31.1 MCHC 33.9 34.1 RDW Std Deviation 54.5 H 57.4 H Plt Count 133 L D 81 L Neut % (Auto) 98 H 88 H Lymph % (Auto) 1 L 10 [place] % (Auto) 0 1 Eos % (Auto) 0 1 Baso % (Auto) 0 0 Neut # (Auto) 21.7 H 12.3 H Lymph # (Auto) 0.3 L 1.4 [place] # (Auto) 0.1 0.2 Eos # (Auto) 0.0 0.1 Baso # (Auto) 0.0 0.0 Immature Gran # (Auto) 0.16 H 0.09 H Absolute Nucleated RBC 0.00 0.00 Immature Gran % 1 H 1 H Nucleated RBC % 0 0 Sodium 139 139 Potassium 3.5 4.1 Chloride 106 107 Carbon Dioxide 17.1 L 22.5 Anion Gap 16 10 BUN 25 H 26 H Creatinine 1.1 1.0 Estim Creat Clear Calc 35.9 L eGFR 51 L 57 L BUN/Creatinine Ratio 23 H 26 H Glucose 186 H 117 H Calculated Osmolality 286 283 Lactic Acid 4.8 H* Calcium 8.8 8.2 L Corrected Calcium 9.4 9.0 Phosphorus 2.7 2.9 Magnesium 1.3 L 1.9 Total Bilirubin 0.5 0.6 AST 117 H 19 ALT 56 H 18 Alkaline Phosphatase 157 H 102 D Lactate Dehydrogenase 344 H Troponin I 0.026 Total Protein 5.3 L 5.2 L Albumin 3.2 L 3.0 L Globulin 2.1 L 2.2 L Albumin/Globulin Ratio 1.5 1.4 Lipase 21 Procalcitonin 47.16 H ABG Interpretation ABG results: 02/03/25 22:45 VBG pH 7.39 VBG pCO2 31 L VBG pO2 52 VBG Base Excess -5 L Quality Measures Quality Measures VTE prophylaxis and none Advance care planning discussed with:: patient and child Assessment & Plan Assessment Current Active Medications: Generic Name Dose Route Start Last Admin Trade Name Freq PRN Reason Stop Dose Admin Acetaminophen 650 mg 02/04/25 00:06 02/05/25 08:11 Acetaminophen 325 Mg Tablet PO 03/06/25 00:05 650 mg Q6HR PRN Administration PAIN (1-3) OR FEVER > 100.4 Hydrocodone Bitart/Acetaminophen 1 tab 02/05/25 09:28 02/05/25 09:39 Hydrocodone/Apap 5/325 Tablet PO 02/10/25 09:27 1 tab Q6HR PRN Administration PAIN SCALE 4-10(Mod-Sev Dextrose 50 ml 02/04/25 00:12 Dextrose 50%-Water Inj 50 Ml Syringe IV 03/06/25 00:11 Q15MIN PRN BG <50 OR BG <70 & pt unresponsive Dextrose 25 ml 02/04/25 00:12 Dextrose 50%-Water Inj 50 Ml Syringe IV 03/06/25 00:11 Q15MIN PRN BG 50-70 responsive npo pt Gabapentin 300 mg 02/05/25 09:30 02/06/25 08:15 Gabapentin 300 Mg Capsule PO 03/07/25 09:29 300 mg Q12HR [facility] Administration Glucagon 1 mg 02/04/25 00:12 Glucagon Inj 1 Mg Vial IM Q15MIN PRN BG <70, and no IV access Heparin Sodium (Porcine) 5,000 unit 02/04/25 21:00 02/06/25 08:16 Heparin Sod Inj 5000 Unit/Ml Vial SC 02/18/25 20:59 5,000 unit Q12HR [facility] Administration Meropenem 1,000 mg/ Sodium 50 mls @ 100 mls/hr 02/04/25 05:45 02/06/25 08:16 Chloride IV 02/11/25 05:44 100 mls/hr Q12HR [facility] Administration Doxycycline Hyclate 100 mg/ 100 mls @ 100 mls/hr 02/04/25 10:00 02/06/25 08:16 Sodium Chloride IV 02/11/25 09:59 100 mls/hr BID [facility] Administration Lactated Ringer's 500 mls @ 70 mls/hr 02/06/25 10:06 02/06/25 10:21 Lactated Ringers IV 02/06/25 17:14 70 mls/hr .Q7H9M [facility] Administration Insulin Human Lispro 0 unit 02/06/25 07:38 02/06/25 12:01 Insulin Lispro (Admelog) 1 Unit/0.01 Ml Unit SC 03/06/25 20:59 Not Given ACHS [facility] Protocol Ondansetron HCl 4 mg 02/04/25 00:06 02/05/25 07:36 Ondansetron Inj 2 Mg/Ml Inj 2 Ml IVP 03/06/25 00:05 4 mg Q6H PRN Administration NAUSEA OR VOMITING Protocol Plan 79-year-old female with history of metastatic colon cancer (s/p chemoradiation with CAPOX chemotherapy), 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 Patient admitted for sepsis secondary to UTI. # E. coli bacteremia #11 cm Pelvic abscess #Urinary tract infection #History of ESBL UTI Sepsis due to UTI with acute sepsis-related organ dysfunction as evidence by lactic acidosis, 4.8 with repeat 4.0, procalcitonin 47.16 2-day history of chills, weakness, and subjective fevers. Her daughter reports a Tmax of 100.1 WBC 22.2 UA showed WBC 68, leuk esterase positive. Chest x-ray shows early bibasilar pneumonia CT Abdo/pelvis showed bilobed fluid collection in the pelvis 11 cm which projects above the urinary bladder and may represent an abscess versus dilated rectosigmoid colon In ED patient received 2 L of IVF, also received ceftriaxone 1 g, ciprofloxacin 400 mg, metronidazole 500 mg. - Operative report from 09/12/2023 for resection of rectal cancer by Dr Mitchell Reports an oncological resection of the rectum and anus to have been performed successfully. Therefore, the fluid filled sacs as found on CT abdomen and pelvis could not be representing a dilated rectosigmoid colon or have an association with those structures. It's more likely that the patient has an 11cm pelvic abscess. - RN DOCUMENT IMPROVEMENT SPECIALIST, Dr Velez, was consulted who states that the aformentioned abdominal lesion is unlikely to have a gynecological source. No gynocological intervention is necessary at this time. - General Surgery recommended reaching out to patient's primary surgeon Dr Tien Mitchell at [facility] [place] - Discussed with Dr. Mitchell he recommends that patient undergo IR drainage with drain placement, if patient is stable to be discharged outpatient and follow-up with his office. If patient's condition deteriorates he recommends to inform him and initiate transfer to [facility] - Culture positive for E. coli sensitive to meropenem Plan ? Continue meropenem (02/03- ? Will plan for IR drainage with drain placement on Sunday ? Follow-up CT with oral contrast to assess for fistula #Type 2 diabetes mellitus, insulin-dependent #History of neuropathy Last A1c 5.6 12/04 Takes glargine 10 units subcut every afternoon Plan ? Insulin sliding scale ordered ? 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 Lisa. On chemotherapy treatment. Plan ? Follow-up outpatient #CKD stage, IIIB Baseline eGFR in high 40s. On admission, creatinine 1.1, baseline 1.2-1.3. BNP elevated 471, euvolemic, elevation likely secondary to CKD as kidneys may not clear BNP efficiently versus age-related changes Plan: ? Monitor renal function daily ? Encourage oral hydration ? Avoid nephrotoxic drugs ? Renally dose medications as needed #HTN #HLD Lipid panel 11/27: trig 155, cholesterol 90, LDL 43, HDL 16. Takes carvedilol and nifedipine Plan ? Continue to hold antihypertensives #Lactic acidosis, resolved Health Maintenance: Diet: Low carb consistent diet GI prophylaxis: Not indicated DVT prophylaxis: Heparin every 12 hours Antibiotics: Meropenem CODE STATUS: Full Disposition: Telemetry This case was discussed with my attending physician, Dr. Christine Luo PGY2 Internal medicine Attending Provider Attestation/Addendum 79 yo female with colorectal cancer with mets sp colectomy and colostomy admitted for pelvic abscess. She is scheduled for IR percutaenous drain procedure on Sunday. She steadily downtrending WBC count, Continue crrent antibiotics. Monitor BUN and creatinine. Discussed with housestaff.
[2025-02-06 16:00] VITALS: BP 131/67; PULSE 72; PULSE 84; RESP 26; TEMP 36.4; O2SAT 96
--- NOTE | 2025-02-06 16:47 | PC.PT ---
Patient is safe to ambulate in her room and in the halls with a FWW and 1 staff assist. RN made aware.
[2025-02-06] MEDS: INSULIN LISPRO (AdmeLOG) 1 UNIT/0.01 ML UNIT SC (17:14)
[2025-02-06] MEDS: ONDANSETRON INJ 2 MG/ML INJ 2 ML 4 MG IVP (19:14)
[2025-02-06 19:56] VITALS: BP 116/61; PULSE 73; RESP 17; TEMP 36.7; O2SAT 98
[2025-02-07] VITALS: BP 127/70; PULSE 75; RESP 22; TEMP 35.8; O2SAT 97
[2025-02-07] MEDS: ONDANSETRON INJ 2 MG/ML INJ 2 ML 4 MG IVP ×2 (03:58→12:23)
[2025-02-07 04:00] VITALS: BP 139/82; PULSE 98; RESP 20; TEMP 35.9; O2SAT 97
[2025-02-07 06:00] VITALS: BMI 24.0
[2025-02-07 06:06] LABS: Basophils # (Auto) 0.0 Thou/mm3 (0.0-0.2); Basophils % (Auto) 0 % (0-2.5); Eosinophils # (Auto) 0.0 Thou/mm3 (0.0-0.5); Eosinophils % (Auto) 0 % (0-10); Hematocrit 35.0 % (36.0-46.0); Hemoglobin 11.9 g/dL (12.0-16.0); Immature Granulocytes Auto 0.10 Thou/mm3 (0.00-0.00); Lymphocytes # (Auto) 1.2 Thou/mm3 (1.0-4.8); Lymphocytes % (Auto) 10 % (10-50); Mean Corpuscular HGB Conc 34.0 g/dl (31.0-37.0); Mean Corpuscular Hemoglobin 31.4 pg (25.0-35.0); Mean Corpuscular Volume 92 fL (80-100); Monocytes # (Auto) 0.3 Thou/mm3 (0.0-0.8); Monocytes % (Auto) 2 % (0-12); Neutrophils # (Auto) 10.3 Thou/mm3 (1.8-7.7); Neutrophils % (Auto) 86 % (37-80); Nucleated Red Blood Cell # 0.00 Thou/mm3 (0.00-0.00); Nucleated Red Blood Cell % 0 /100 WBC (0); Platelet Count 83 Thou/mm3 (140-440); RDW Standard Deviation 55.8 fL (36.4-46.3); Red Blood Count 3.79 Miln/mm3 (4.00-5.20); White Blood Count 11.9 Thou/mm3 (3.6-11.0)
[2025-02-07 06:35] LABS: Alanine Aminotransferase 17 U/L (10-49); Albumin, Serum 3.5 gm/dL (3.4-4.8); Albumin/Globulin Ratio 1.4 (1.2-2.2); Alkaline Phosphatase 112 U/L (46-116); Anion Gap 10 (7-16); Aspartate Amino Transferase 22 U/L (0-34); BUN/Creatinine Ratio 24 Ratio (12-20); Bilirubin,Total 0.8 mg/dL (0.3-1.2); Blood Urea Nitrogen 26 mg/dL (9-23); Calcium 9.0 mg/dL (8.3-10.6); Calcium (Corrected) 9.4 mg/dL (8.5-10.1); Carbon Dioxide 22.9 mMol/L (20.0-31.0); Chloride 102 mMol/L (98-107); Creatinine (Component) 1.1 mg/dL (0.6-1.3); Estimated Creatinine Clearance 32.0 mL/min (>60); Globulin 2.5 gm/dL (2.3-3.5); Glucose 201 mg/dL (74-106); Magnesium 2.4 mg/dL (1.6-2.6); Osmolality,Calculated 280 (275-295); Phosphorous 3.1 mg/dL (2.4-5.1); Potassium 4.2 mMol/L (3.4-5.1); Sodium 135 mMol/L (136-145); Total Protein 6.0 gm/dL (5.7-8.2); eGFR 51 See Note
--- NOTE | 2025-02-07 07:23 | XR_ITS ---
Examination: Abdomen AP single view Technique: AP portable supine abdomen, single view Exam date and time: February 07, 2025, 0810 hours INDICATIONS: Abdominal pain today. FINDINGS: Contrast in the colon No obstruction Left hip hemiarthroplasty No free air Mildly air distended stomach A few loops of air distended small bowel in the upper left abdomen IMPRESSION: Negative for small bowel obstruction
--- NOTE | 2025-02-07 07:23 | XR_ITS ---
EXAMINATION: AP chest single view TECHNIQUE: AP portable semiupright chest single view Date and time: February 07, 2025, 0809 hours, comparison February 03, 2025 INDICATIONS: Vomiting today. FINDINGS: Mild pneumonia left base Mildly air distended stomach Normal heart size Small focus of probable pneumonia also in the left upper lobe Right internal jugular Port-A-Cath tip satisfactory position Mild vascular congestion IMPRESSION: Left lung pneumonia as above, suggest continued follow-up
[2025-02-07] MEDS: INSULIN LISPRO (AdmeLOG) 1 UNIT/0.01 ML UNIT SC ×3 (07:49→20:38)
[2025-02-07 08:00] VITALS: BP 121/78; PULSE 95; PULSE 98; RESP 21; TEMP 36.1; O2SAT 98
[2025-02-07] MEDS: DOXYCYCLINE INJ 100 MG in SODIUM CHLORIDE 0.9% (POP) 100 ML IV ×2 (08:30→20:39)
[2025-02-07] MEDS: HEPARIN SOD INJ 5000 UNIT/ML VIAL SC (08:31)
[2025-02-07] MEDS: MEROPENEM INJ 1,000 MG in SODIUM CHLORIDE 0.9% (Popper) 50 ML 100 MG IV (08:31)
[2025-02-07 12:00] VITALS: BP 149/91; PULSE 86; PULSE 96; RESP 19; TEMP 36.5; O2SAT 98
[2025-02-07] MEDS: PIPER/TAZO 3.375 GM PREMIX 3.375 GM/50 ML BAG IV ×2 (12:16→21:43)
--- NOTE | 2025-02-07 14:40 | ESPR_ITS ---
Documentation for date of: 02/07/25 Subjective Subjective Interval history: Patient seen and examined at bedside. No current complaints, denies any fever/chills. Patient had vomited multiple times overnight, described as bilous emesis by nursing, and received Zofran which alleviated her symptoms. In the morning patient was placed n.p.o. The current choice of her ABx provide coverage for aspiraion pneumonia, should it develop. Blood cultures resulted as E. coli sensitive to meropenem, we will continue meropenem as patient did have a UTI recently with Pseudomonas resistant to Zosyn. Will continue with doxycycline until . Reached out to patient's primary general surgeon yesterday Dr Tien Mitchell at [facility] He recommends that patient undergo IR drainage with drain placement, if patient is stable to be discharged outpatient and follow-up with his office If patient's condition deteriorates he recommends to inform him and initiate transfer to [facility] Explained to patient regarding the plan, patient will undergo IR guided drainage with drain placement on Sunday a.m. Pending CT with oral contrast. Exam Vital Signs Temp Pulse Resp BP Pulse Ox O2 Del Method O2 Flow Rate 97.7 F 96 19 149/91 H 98 Room Air 1 02/07/25 12:00 02/07/25 12:00 02/07/25 12:00 02/07/25 12:00 02/07/25 12:00 02/07/25 12:00 02/05/25 20:00 Narrative Exam General: AOx3, no acute distress, able to speak full sentences, [place]-speaking HEENT: NC/AT, mucous membranes moist, bilateral sclera anicteric Cardiovascular: regular rate and rhythm, S1/S2 present, no murmurs appreciated Pulmonary: clear to auscultation bilaterally, no rales/rhonchi/wheezes Abdominal: soft, non-tender, non-distended, no rebound/guarding, normal bowel sounds present, colostomy bag noted. Musculoskeletal: normal ROM, no peripheral edema Skin: warm and dry, intact, no rashes, Neuro: CN II-XII intact, no focal deficits Objective Labs 02/07/25 05:05 02/07/25 05:05 Labs: Laboratory Results - last 24 hr 02/07/25 05:05 WBC 11.9 H RBC 3.79 L Hgb 11.9 L D Hct 35.0 L MCV 92 MCH 31.4 MCHC 34.0 RDW Std Deviation 55.8 H Plt Count 83 L Neut % (Auto) 86 H Lymph % (Auto) 10 [place] % (Auto) 2 Eos % (Auto) 0 Baso % (Auto) 0 Neut # (Auto) 10.3 H Lymph # (Auto) 1.2 [place] # (Auto) 0.3 Eos # (Auto) 0.0 Baso # (Auto) 0.0 Immature Gran # (Auto) 0.10 H Absolute Nucleated RBC 0.00 Immature Gran % 1 H Nucleated RBC % 0 Sodium 135 L Potassium 4.2 Chloride 102 Carbon Dioxide 22.9 Anion Gap 10 BUN 26 H Creatinine 1.1 Estim Creat Clear Calc 32.0 L eGFR 51 L BUN/Creatinine Ratio 24 H Glucose 201 H D Calculated Osmolality 280 Calcium 9.0 Corrected Calcium 9.4 Phosphorus 3.1 Magnesium 2.4 Total Bilirubin 0.8 AST 22 ALT 17 Alkaline Phosphatase 112 Total Protein 6.0 Albumin 3.5 D Globulin 2.5 Albumin/Globulin Ratio 1.4 ABG Interpretation ABG results: 02/03/25 22:45 VBG pH 7.39 VBG pCO2 31 L VBG pO2 52 VBG Base Excess -5 L Quality Measures Quality Measures VTE prophylaxis and none Advance care planning discussed with:: patient and child Assessment & Plan Assessment Current Active Medications: Generic Name Dose Route Start Last Admin Trade Name Freq PRN Reason Stop Dose Admin Acetaminophen 650 mg 02/04/25 00:06 02/05/25 08:11 Acetaminophen 325 Mg Tablet PO 03/06/25 00:05 650 mg Q6HR PRN Administration PAIN (1-3) OR FEVER > 100.4 Hydrocodone Bitart/Acetaminophen 1 tab 02/05/25 09:28 02/05/25 09:39 Hydrocodone/Apap 5/325 Tablet PO 02/10/25 09:27 1 tab Q6HR PRN Administration PAIN SCALE 4-10(Mod-Sev Dextrose 50 ml 02/04/25 00:12 Dextrose 50%-Water Inj 50 Ml Syringe IV 03/06/25 00:11 Q15MIN PRN BG <50 OR BG <70 & pt unresponsive Dextrose 25 ml 02/04/25 00:12 Dextrose 50%-Water Inj 50 Ml Syringe IV 03/06/25 00:11 Q15MIN PRN BG 50-70 responsive npo pt Gabapentin 300 mg 02/05/25 09:30 02/07/25 08:31 Gabapentin 300 Mg Capsule PO 03/07/25 09:29 Not Given Q12HR [facility] Glucagon 1 mg 02/04/25 00:12 Glucagon Inj 1 Mg Vial IM Q15MIN PRN BG <70, and no IV access Heparin Sodium (Porcine) 5,000 unit 02/04/25 21:00 02/07/25 08:31 Heparin Sod Inj 5000 Unit/Ml Vial SC 02/18/25 20:59 5,000 unit Q12HR [facility] Administration Doxycycline Hyclate 100 mg/ 100 mls @ 100 mls/hr 02/04/25 10:00 02/07/25 08:30 Sodium Chloride IV 02/08/25 21:00 100 mls/hr BID [facility] Administration Piperacillin/Tazobactam/Dextrose 3.375 gm in 50 mls @ 12.5 mls/hr 02/07/25 22:00 Zosyn IV 02/14/25 21:59 Q8HR [facility] Protocol Insulin Human Lispro 0 unit 02/06/25 07:38 02/07/25 11:20 Insulin Lispro (Admelog) 1 Unit/0.01 Ml Unit SC 03/06/25 20:59 2 unit ACHS [facility] Administration Protocol Ondansetron HCl 4 mg 02/04/25 00:06 02/07/25 12:23 Ondansetron Inj 2 Mg/Ml Inj 2 Ml IVP 03/06/25 00:05 4 mg Q6H PRN Administration NAUSEA OR VOMITING Protocol Polyethylene Glycol 34 gm 02/07/25 14:25 Polyethylene Glycol 17 Gm Packet PO 03/09/25 14:24 QDAY [facility] Sennosides 2 tab 02/08/25 09:00 Senna/Docusate Sod 1 Tab Tablet PO 03/10/25 08:59 QDAY [facility] Protocol Plan 79-year-old female with history of metastatic colon cancer (s/p chemoradiation with CAPOX chemotherapy), 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 Patient admitted for sepsis secondary to UTI. # E. coli bacteremia #11 cm Pelvic abscess #Urinary tract infection #History of ESBL UTI Sepsis due to UTI with acute sepsis-related organ dysfunction as evidence by lactic acidosis, 4.8 with repeat 4.0, procalcitonin 47.16 2-day history of chills, weakness, and subjective fevers. Her daughter reports a Tmax of 100.1 WBC 22.2 UA showed WBC 68, leuk esterase positive. Chest x-ray shows early bibasilar pneumonia CT Abdo/pelvis showed bilobed fluid collection in the pelvis 11 cm which projects above the urinary bladder and may represent an abscess versus dilated rectosigmoid colon In ED patient received 2 L of IVF, also received ceftriaxone 1 g, ciprofloxacin 400 mg, metronidazole 500 mg. - Operative report from 09/12/2023 for resection of rectal cancer by Dr Mitchell Reports an oncological resection of the rectum and anus to have been performed successfully. Therefore, the fluid filled sacs as found on CT abdomen and pelvis could not be representing a dilated rectosigmoid colon or have an association with those structures. It's more likely that the patient has an 11cm pelvic abscess. - TRUCK BODY BUILDER APPRENTICE, Dr Velez, was consulted who states that the aformentioned abdominal lesion is unlikely to have a gynecological source. No gynocological intervention is necessary at this time. - General Surgery recommended reaching out to patient's primary surgeon Dr Tien Mitchell at [facility] - Discussed with Dr. Mitchell he recommends that patient undergo IR drainage with drain placement, if patient is stable to be discharged outpatient and follow-up with his office. If patient's condition deteriorates he recommends to inform him and initiate transfer to [facility] - Culture positive for E. coli sensitive to meropenem Plan ? Continue meropenem (02/03- ? Will plan for IR drainage with drain placement on Sunday ? Follow-up CT with oral contrast to assess for fistula #Type 2 diabetes mellitus, insulin-dependent #History of neuropathy Last A1c 5.6 12/04 Takes glargine 10 units subcut every afternoon Plan ? Insulin sliding scale ordered ? 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 Lisa. On chemotherapy treatment. Plan ? Follow-up outpatient #CKD stage, IIIB Baseline eGFR in high 40s. On admission, creatinine 1.1, baseline 1.2-1.3. BNP elevated 471, euvolemic, elevation likely secondary to CKD as kidneys may not clear BNP efficiently versus age-related changes Plan: ? Monitor renal function daily ? Encourage oral hydration ? Avoid nephrotoxic drugs ? Renally dose medications as needed #HTN #HLD Lipid panel 11/27: trig 155, cholesterol 90, LDL 43, HDL 16. Takes carvedilol and nifedipine Plan ? Continue to hold antihypertensives #Lactic acidosis, resolved Health Maintenance: Diet: Low carb consistent diet GI prophylaxis: Not indicated DVT prophylaxis: Heparin every 12 hours Antibiotics: Meropenem CODE STATUS: Full Disposition: Telemetry This case was discussed with my attending physician, Dr. Arnett, and senior resident, Dr Luo. Even though this this note was carefully revised there may still be minor errors in environmental director due to voice recognition software. Jaci Clements DO PGY I Attending Provider Attestation/Addendum I have discussed and was present for the essential components of the history, physical examination, diagnosis, and treatment plan with the resident. I agree with the patient's care as documented by the resident and amended herein by me. Kristian Arnett DO. Although this document has been carefully reviewed, there may still be some phonetic and other typographical errors. These errors are purely grammatical due to imperfections in the software program and should not be construed in any way to compromise the substance of the patient's medical care during this visit. Patient seen and evaluated this AM. No acute events overnight, vital signs stable, patient afebrile however patient did experience vomiting today, likely secondary to ileus hence NG tube inserted. Significant labs today include a WBC 11.9 which is down trended, hemoglobin stable 11.9, platelet count 83, BUN 26 and creatinine 1.1. Patient pending IR drain placement on Sunday for pelvic mass, will then need to follow-up with her outpatient surgeon for further evaluation and possible further surgical intervention. KUB today which was negative for any SBO or obstruction however did show some dilated bowel loops. MRSA nares negative, blood culture on 02/03 demonstrating ESBL E. coli from both bottles of 1 set sensitive to Zosyn. Urine cultures on 01/13 demonstrating Pseudomonas resistant to Zosyn however urine cultures drawn on 02/03 during this admission are negative for any growth. As such, I have discontinued the meropenem today and will start Zosyn for ESBL E. coli bacteremia, patient will require a total 7-day Course, meropenem was started on 02/04 hence antibiotics can be continued through February 10. Will continue to monitor closely, discharge pending improved clinical course
[2025-02-07 16:00] VITALS: BP 135/82; PULSE 85; PULSE 87; RESP 19; TEMP 36.6; O2SAT 96
[2025-02-07] MEDS: METOCLOPRAMIDE INJ 5 MG/ML VIAL 2 ML IVP (16:49)
[2025-02-07 17:06] VITALS: BMI 24.1
--- NOTE | 2025-02-07 17:30 | XR_ITS ---
EXAMINATION: AP chest single view TECHNIQUE: AP portable semiupright chest single view Date and time: February 07, 2025, 1743 hours, comparison February 07, 2025 0809 hours INDICATIONS: Post orogastric tube placement FINDINGS: Orogastric tube in the stomach satisfactory position Atelectasis and/or pneumonia left base Parenchymal disease left upper lobe again noted Right internal jugular Port-A-Cath tip satisfactory position Prominent osteopenia IMPRESSION: Orogastric tube in the stomach satisfactory position
[2025-02-07 20:00] VITALS: BP 121/85; PULSE 91; PULSE 92; RESP 18; TEMP 36.3; O2SAT 96
[2025-02-08] VITALS (8 sets, daily range): BP systolic 108–139; BP diastolic 55–90; PULSE 76–106; RESP 12–22; TEMP 36.3–36.9; O2SAT 96–102; BMI 24.1
[2025-02-08] MEDS: PIPER/TAZO 3.375 GM PREMIX 3.375 GM/50 ML BAG IV ×3 (05:38→22:13)
[2025-02-08 06:10] LABS: Basophils # (Auto) 0.0 Thou/mm3 (0.0-0.2); Basophils % (Auto) 0 % (0-2.5); Eosinophils # (Auto) 0.1 Thou/mm3 (0.0-0.5); Eosinophils % (Auto) 1 % (0-10); Hematocrit 36.8 % (36.0-46.0); Hemoglobin 12.7 g/dL (12.0-16.0); Immature Granulocytes Auto 0.10 Thou/mm3 (0.00-0.00); Lymphocytes # (Auto) 1.6 Thou/mm3 (1.0-4.8); Lymphocytes % (Auto) 15 % (10-50); Mean Corpuscular HGB Conc 34.5 g/dl (31.0-37.0); Mean Corpuscular Hemoglobin 31.6 pg (25.0-35.0); Mean Corpuscular Volume 92 fL (80-100); Monocytes # (Auto) 0.5 Thou/mm3 (0.0-0.8); Monocytes % (Auto) 4 % (0-12); Neutrophils # (Auto) 8.5 Thou/mm3 (1.8-7.7); Neutrophils % (Auto) 79 % (37-80); Nucleated Red Blood Cell # 0.00 Thou/mm3 (0.00-0.00); Nucleated Red Blood Cell % 0 /100 WBC (0); Platelet Count 84 Thou/mm3 (140-440); RDW Standard Deviation 56.0 fL (36.4-46.3); Red Blood Count 4.02 Miln/mm3 (4.00-5.20); White Blood Count 10.8 Thou/mm3 (3.6-11.0)
[2025-02-08 06:32] LABS: Alanine Aminotransferase 12 U/L (10-49); Albumin, Serum 3.8 gm/dL (3.4-4.8); Albumin/Globulin Ratio 1.5 (1.2-2.2); Alkaline Phosphatase 108 U/L (46-116); Anion Gap 14 (7-16); Aspartate Amino Transferase 24 U/L (0-34); BUN/Creatinine Ratio 19 Ratio (12-20); Bilirubin,Total 1.1 mg/dL (0.3-1.2); Blood Urea Nitrogen 37 mg/dL (9-23); Calcium 9.3 mg/dL (8.3-10.6); Calcium (Corrected) 9.5 mg/dL (8.5-10.1); Carbon Dioxide 26.9 mMol/L (20.0-31.0); Chloride 98 mMol/L (98-107); Creatinine (Component) 2.0 mg/dL (0.6-1.3); Estimated Creatinine Clearance 17.1 mL/min (>60); Globulin 2.6 gm/dL (2.3-3.5); Glucose 135 mg/dL (74-106); Magnesium 2.7 mg/dL (1.6-2.6); Osmolality,Calculated 288 (275-295); Phosphorous 4.6 mg/dL (2.4-5.1); Potassium 4.2 mMol/L (3.4-5.1); Sodium 139 mMol/L (136-145); Total Protein 6.4 gm/dL (5.7-8.2); eGFR 25 See Note
[2025-02-08] MEDS: RINGERS LACTATED 1000 ML 1,000 ML 250 ML IV (08:46)
[2025-02-08] MEDS: DOXYCYCLINE INJ 100 MG in SODIUM CHLORIDE 0.9% (POP) 100 ML IV ×2 (08:46→20:37)
[2025-02-08] MEDS: HEPARIN SOD INJ 5000 UNIT/ML VIAL SC (08:47)
--- NOTE | 2025-02-08 13:30 | ESPR_ITS ---
<Statement entered by Dano Hernandez MD - 02/08/25 17:35> Patient seen and examined at bedside. I discussed and supervised with the marketing summer intern physician who took care of this patient. I personally saw and examined the patient. I agree with most of the assessment and plan. Patient had significant BM via colostomy bag after being made to ambulate, sit in chair. Plan for IR drain placement tomorrow. Given 1 L of LR due to THOMAS, suspect dehydration. Plan of care discussed with attending Dr. Arnett. Dano Hernandez MD PGY-2 Documentation for date of: 02/08/25 Subjective Subjective Interval history: Patient seen and examined at bedside. No current complaints, denies any fever/chills. Patient reports improvement in her symptoms and alleviation of nausea and vomiting since the insertion of NG-tube. Patient having ileus confirmed with imaging with no recorded bowel movements during current hospitalization. Patient on order to get up to chair with nursing assistance and PT to stimulate BM. Reached out to patient's primary general surgeon yesterday Dr Tien Mitchell at [facility] He recommends that patient undergo IR drainage with drain placement, if patient is stable to be discharged outpatient and follow-up with his office If patient's condition deteriorates he recommends to inform him and initiate transfer to [facility] Explained to patient regarding the plan, patient will undergo IR guided drainage with drain placement on Sunday a.m. Exam Vital Signs Temp Pulse Resp BP Pulse Ox O2 Del Method O2 Flow Rate 97.3 F 92 17 121/80 96 Room Air 1 02/08/25 12:00 02/08/25 12:00 02/08/25 12:00 02/08/25 12:00 02/08/25 12:00 02/08/25 12:02/08/25 04:00 Narrative Exam General: AOx3, no acute distress, able to speak full sentences, [place] Islander-speaking HEENT: NC/AT, mucous membranes moist, bilateral sclera anicteric Cardiovascular: regular rate and rhythm, S1/S2 present, no murmurs appreciated Pulmonary: clear to auscultation bilaterally, no rales/rhonchi/wheezes Abdominal: soft, non-tender, non-distended, no rebound/guarding, normal bowel sounds present, colostomy bag noted. Musculoskeletal: normal ROM, no peripheral edema Skin: warm and dry, intact, no rashes, Neuro: CN II-XII intact, no focal deficits Objective Labs 02/09/25 05:14 02/09/25 05:14 Labs: Laboratory Results - last 24 hr 02/08/25 05:44 WBC 10.8 RBC 4.02 Hgb 12.7 Hct 36.8 MCV 92 MCH 31.6 MCHC 34.5 RDW Std Deviation 56.0 H Plt Count 84 L Neut % (Auto) 79 Lymph % (Auto) 15 Piatt % (Auto) 4 Eos % (Auto) 1 Baso % (Auto) 0 Neut # (Auto) 8.5 H Lymph # (Auto) 1.6 Piatt # (Auto) 0.5 Eos # (Auto) 0.1 Baso # (Auto) 0.0 Immature Gran # (Auto) 0.10 H Absolute Nucleated RBC 0.00 Immature Gran % 1 H Nucleated RBC % 0 Sodium 139 Potassium 4.2 Chloride 98 Carbon Dioxide 26.9 Anion Gap 14 BUN 37 H Creatinine 2.0 H D Estim Creat Clear Calc 17.1 L eGFR 25 L BUN/Creatinine Ratio 19 Glucose 135 H D Calculated Osmolality 288 Calcium 9.3 Corrected Calcium 9.5 Phosphorus 4.6 Magnesium 2.7 H Total Bilirubin 1.1 AST 24 ALT 12 Alkaline Phosphatase 108 Total Protein 6.4 Albumin 3.8 Globulin 2.6 Albumin/Globulin Ratio 1.5 ABG Interpretation ABG results: 02/03/25 22:45 VBG pH 7.39 VBG pCO2 31 L VBG pO2 52 VBG Base Excess -5 L Quality Measures Quality Measures VTE prophylaxis and none Advance care planning discussed with:: patient and child Assessment & Plan Assessment Current Active Medications: Generic Name Dose Route Start Last Admin Trade Name Freq PRN Reason Stop Dose Admin Acetaminophen 650 mg 02/04/25 00:06 02/05/25 08:11 Acetaminophen 325 Mg Tablet PO 03/06/25 00:05 650 mg Q6HR PRN Administration PAIN (1-3) OR FEVER > 100.4 Hydrocodone Bitart/Acetaminophen 1 tab 02/05/25 09:28 02/05/25 09:39 Hydrocodone/Apap 5/325 Tablet PO 02/10/25 09:27 1 tab Q6HR PRN Administration PAIN SCALE 4-10(Mod-Sev Dextrose 50 ml 02/04/25 00:12 Dextrose 50%-Water Inj 50 Ml Syringe IV 03/06/25 00:11 Q15MIN PRN BG <50 OR BG <70 & pt unresponsive Dextrose 25 ml 02/04/25 00:12 Dextrose 50%-Water Inj 50 Ml Syringe IV 03/06/25 00:11 Q15MIN PRN BG 50-70 responsive npo pt Gabapentin 300 mg 02/05/25 09:30 02/08/25 08:51 Gabapentin 300 Mg Capsule PO 03/07/25 09:29 Not Given Q12HR MARION Glucagon 1 mg 02/04/25 00:12 Glucagon Inj 1 Mg Vial IM Q15MIN PRN BG <70, and no IV access Heparin Sodium (Porcine) 5,000 unit 02/04/25 21:00 02/08/25 08:47 Heparin Sod Inj 5000 Unit/Ml Vial SC 02/18/25 20:59 5,000 unit Q12HR MARION Administration Doxycycline Hyclate 100 mg/ 100 mls @ 100 mls/hr 02/04/25 10:00 02/08/25 08:46 Sodium Chloride IV 02/08/25 21:00 100 mls/hr BID MARION Administration Piperacillin/Tazobactam/Dextrose 3.375 gm in 50 mls @ 12.5 mls/hr 02/07/25 22:00 02/08/25 13:08 Zosyn IV 02/14/25 21:59 12.5 mls/hr Q8HR MARION Administration Protocol Insulin Human Lispro 0 unit 02/08/25 06:00 02/08/25 06:13 Insulin Lispro (Admelog) 1 Unit/0.01 Ml Unit SC 03/10/25 05:59 Not Given Q6HR MARION Protocol Ondansetron HCl 4 mg 02/04/25 00:06 02/07/25 12:23 Ondansetron Inj 2 Mg/Ml Inj 2 Ml IVP 03/06/25 00:05 4 mg Q6H PRN Administration NAUSEA OR VOMITING Protocol Polyethylene Glycol 34 gm 02/07/25 14:25 02/08/25 08:52 Polyethylene Glycol 17 Gm Packet PO 03/09/25 14:24 Not Given QDAY [facility] Sennosides 2 tab 02/08/25 09:00 11/30/25 08:52 Senna/Docusate Sod 1 Tab Tablet PO 03/10/25 08:59 Not Given QDAY [facility] Protocol Plan 79-year-old female with history of metastatic colon cancer (s/p chemoradiation with CAPOX chemotherapy), 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 Patient admitted for sepsis secondary to UTI. #Acute Kidney Injury #CKD stage, IIIB Baseline eGFR in high 40s. On admission, creatinine 1.1, baseline 1.2-1.3. BNP elevated 471, euvolemic, elevation likely secondary to CKD as kidneys may not clear BNP efficiently versus age-related changes On 02/08, creatinine 2.0, BUN 37, eGFR 25, BUN/creatinine 19. Elevated kidney function tests most likely due to prerenal azotemia in the setting of recent repeated vomiting and n.p.o. status. On PE, patient demonstrating dry oral mucosa, and skin tenting consistent with dehydration Plan: ? Lactated Ringer's IV 1 L at 250 mL/h ? Monitor renal function daily ? Encourage oral hydration ? Avoid nephrotoxic drugs ? Renally dose medications as needed #E. coli bacteremia #11 cm Pelvic abscess #Urinary tract infection #History of ESBL UTI Sepsis due to UTI with acute sepsis-related organ dysfunction as evidence by lactic acidosis, 4.8 with repeat 4.0, procalcitonin 47.16 2-day history of chills, weakness, and subjective fevers. Her daughter reports a Tmax of 100.1 WBC 22.2 UA showed WBC 68, leuk esterase positive. Chest x-ray shows early bibasilar pneumonia CT Abdo/pelvis showed bilobed fluid collection in the pelvis 11 cm which projects above the urinary bladder and may represent an abscess versus dilated rectosigmoid colon In ED patient received 2 L of IVF, also received ceftriaxone 1 g, ciprofloxacin 400 mg, metronidazole 500 mg. - Operative report from 09/12/2023 for resection of rectal cancer by Dr Mitchell Reports an oncological resection of the rectum and anus to have been performed successfully. Therefore, the fluid filled sacs as found on CT abdomen and pelvis could not be representing a dilated rectosigmoid colon or have an association with those structures. It's more likely that the patient has an 11cm pelvic abscess. - BRIDGE MAINTAINER, Dr Velez, was consulted who states that the aformentioned abdominal lesion is unlikely to have a gynecological source. No gynocological intervention is necessary at this time. - General Surgery recommended reaching out to patient's primary surgeon Dr Tien Mitchell at [facility] - Discussed with Dr. Mitchell he recommends that patient undergo IR drainage with drain placement, if patient is stable to be discharged outpatient and follow-up with his office. If patient's condition deteriorates he recommends to inform him and initiate transfer to [facility] - Culture positive for E. coli sensitive to meropenem - Urine cultures drawn on 02/03 during this admission were negative for any growth. Meropenem, which was chosen based on previous urine culture results Pseudomonas resistant to Zosyn, is discontinued and patient is started on Zosyn to complete a 7-day course by February 10. Plan ? Discontinued meropenem (02/03-02/07) and started Zosyn (02/08-02/10) for total 7-day course of antibiotics ? Will plan for IR drainage with drain placement on Sunday ? Follow-up CT with oral contrast to assess for fistula #Type 2 diabetes mellitus, insulin-dependent #History of neuropathy Last A1c 5.6 12/04 Takes glargine 10 units subcut every afternoon Plan ? Insulin sliding scale ordered ? 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 Lisa. On chemotherapy treatment. Plan ? Follow-up outpatient #HTN #HLD Lipid panel 11/27: trig 155, cholesterol 90, LDL 43, HDL 16. Takes carvedilol and nifedipine Plan ? Continue to hold antihypertensives #Lactic acidosis, resolved Health Maintenance: Diet: Low carb consistent diet GI prophylaxis: Not indicated DVT prophylaxis: Heparin every 12 hours Antibiotics: Meropenem CODE STATUS: Full Disposition: Telemetry This case was discussed with my attending physician, Dr. Arnett, and senior resident, Dr Hernandez. Even though this this note was carefully revised there may still be minor errors in side show entertainer due to voice recognition software. Jaci Clements DO PGY I Attending Provider Attestation/Addendum I have discussed and was present for the essential components of the history, physical examination, diagnosis, and treatment plan with the resident. I agree with the patient's care as documented by the resident and amended herein by me. Kristian Arnett DO. Although this document has been carefully reviewed, there may still be some phonetic and other typographical errors. These errors are purely grammatical due to imperfections in the software program and should not be construed in any way to compromise the substance of the patient's medical care during this visit. Patient seen and evaluated this AM. No acute events overnight, vital signs stable, patient afebrile overnight, no bowel movements reported. Patient subsequently admitted for sepsis secondary to large 11 cm septated cystic mass in the pelvis. Patient does have a history of metastatic colon cancer status post colectomy with colostomy in August 2024, her surgeon is in [place] which she will need to follow-up with at time of discharge, we have contacted him and let him know the situation, if the patient declines, we can transfer but for now, he suggest having IR place a drain into the abscess and he can follow-up with her thereafter. She will get the drain hopefully tomorrow on on 02/09. Other significant problems include UTI, bacteremia with ESBL E. coli currently being treated with Zosyn, patient also on doxycycline Which can probably be DC'd tomorrow, and THOMAS which is slightly worse today. Patient given a liter of fluids today for her renal function will continue to monitor. NG tube was placed yesterday due to persistent nausea and vomiting, possibly ileus, we directed nursing staff to get the patient up today and to chair to get her bowels moving, she did feel significantly better today with the NG tube, if she does have a BM, likely can remove tomorrow. Physical therapy also ordered. Continue to monitor closely likely DC in 1 to 2 days pending clinical improvement.
--- NOTE | 2025-02-08 16:00 | PC.NURSE ---
pt.sat up in chair for 3 hours,ambulated from chair to doorway and back to chair with PT,tolerated well,then filled colostomy with lg.amt.of loose brown stool,changed colostomy bag.
[2025-02-09] VITALS (16 sets, daily range): BP systolic 87–141; BP diastolic 60–80; PULSE 62–121; RESP 14–28; TEMP 36.1–37.4; O2SAT 94–100; BMI 24.1
[2025-02-09] MEDS: PIPER/TAZO 3.375 GM PREMIX 3.375 GM/50 ML BAG IV ×2 (05:40→21:05)
[2025-02-09 06:51] LABS: Basophils # (Auto) 0.0 Thou/mm3 (0.0-0.2); Basophils % (Auto) 1 % (0-2.5); Eosinophils # (Auto) 0.1 Thou/mm3 (0.0-0.5); Eosinophils % (Auto) 1 % (0-10); Hematocrit 30.7 % (36.0-46.0); Hemoglobin 10.2 g/dL (12.0-16.0); Immature Granulocytes Auto 0.03 Thou/mm3 (0.00-0.00); Lymphocytes # (Auto) 1.2 Thou/mm3 (1.0-4.8); Lymphocytes % (Auto) 20 % (10-50); Mean Corpuscular HGB Conc 33.2 g/dl (31.0-37.0); Mean Corpuscular Hemoglobin 30.9 pg (25.0-35.0); Mean Corpuscular Volume 93 fL (80-100); Monocytes # (Auto) 0.4 Thou/mm3 (0.0-0.8); Monocytes % (Auto) 7 % (0-12); Neutrophils # (Auto) 4.4 Thou/mm3 (1.8-7.7); Neutrophils % (Auto) 71 % (37-80); Nucleated Red Blood Cell # 0.00 Thou/mm3 (0.00-0.00); Nucleated Red Blood Cell % 0 /100 WBC (0); RDW Standard Deviation 56.6 fL (36.4-46.3); Red Blood Count 3.30 Miln/mm3 (4.00-5.20); White Blood Count 6.1 Thou/mm3 (3.6-11.0)
[2025-02-09 06:52] LABS: INR 1.2 (0.9-1.3); Partial Thromboplastin Time 28.5 Seconds (22.0-36.0); Prothrombin Time 12.2 Seconds (9.0-12.2)
[2025-02-09 06:58] LABS: Alanine Aminotransferase < 7 U/L (10-49); Albumin, Serum 3.3 gm/dL (3.4-4.8); Albumin/Globulin Ratio 1.5 (1.2-2.2); Alkaline Phosphatase 87 U/L (46-116); Anion Gap 12 (7-16); Aspartate Amino Transferase 18 U/L (0-34); BUN/Creatinine Ratio 17 Ratio (12-20); Bilirubin,Total 0.7 mg/dL (0.3-1.2); Blood Urea Nitrogen 44 mg/dL (9-23); Calcium 8.5 mg/dL (8.3-10.6); Calcium (Corrected) 9.1 mg/dL (8.5-10.1); Carbon Dioxide 26.6 mMol/L (20.0-31.0); Chloride 103 mMol/L (98-107); Creatinine (Component) 2.6 mg/dL (0.6-1.3); Estimated Creatinine Clearance 13.1 mL/min (>60); Globulin 2.2 gm/dL (2.3-3.5); Glucose 79 mg/dL (74-106); Magnesium 2.5 mg/dL (1.6-2.6); Osmolality,Calculated 293 (275-295); Phosphorous 5.0 mg/dL (2.4-5.1); Potassium 4.1 mMol/L (3.4-5.1); Sodium 142 mMol/L (136-145); Total Protein 5.5 gm/dL (5.7-8.2); eGFR 18 See Note
[2025-02-09 07:08] LABS: Platelet Count 75 Thou/mm3 (140-440)
[2025-02-09 08:03] LABS: Slide Review Platelets confirmed
[2025-02-09] MEDS: SODIUM CHLORIDE 0.9% 500 ML 500 ML 250 ML IV (08:07)
--- NOTE | 2025-02-09 10:01 | PC.NURSE ---
called mirta wright notified him that dr. bower has further questions regarding the patient to determine the appropriateness to proceed with procedure and to give him a call.
[2025-02-09] MEDS: SODIUM CHLORIDE 0.9% 1000 ML 1,000 ML 65 ML IV (12:17)
--- NOTE | 2025-02-09 13:24 | XR_ITS ---
Examination: CT-guided percutaneous placement drainage catheter in pelvic abscess CT pelvis without intravenous contrast Date and time of procedure: February 09, 2025, 1342 hours INDICATION: Recurrent large pelvic abscess on CT examination February 04, 2025 Informed consent provided. A timeout was completed verifying correct patient, procedure, site and positioning. Technique: Axial 3 mm sections were obtained for localization of the large pelvic abscess. Appropriate area is marked. The patient's site was prepped and draped in sterile fashion Maximal sterile barrier technique utilized, including hand hygiene Local anesthesia was obtained with 1% lidocaine. Low dose protocols were performed. One or more of the following dose reduction techniques were used; automated exposure control, adjustment of the mA and/or KV according to patient size, use of iterative reconstruction technique. Utilizing CT fluoroscopic guidance successful placement 5 B[place]ian catheter in the pelvic abscess 0.35 End then placed through the catheter followed by a series of dilators and an 8 B[place]udian drainage pigtail catheter in proper position Patient appears in stable condition during this procedure. At completion of the procedure, the patient is in satisfactory condition. Estimated blood loss 0 cc Complete culture and sensitivity report to follow Impression: Successful CT-guided percutaneous placement drainage catheter in pelvic abscess 200 cc grossly purulent fluid removed
[2025-02-09] MEDS: fentaNYL CIT INJ 50 mCg/ML AMP 2ML IVP (14:11)
[2025-02-09] MEDS: LIDOCAINE INJ PF 1% 30 ML VIAL 9 ML INFL (14:12)
--- NOTE | 2025-02-09 14:52 | PC.SS ---
Rounding Note: Drain placement pending. Patient receiving IV fluids.
--- NOTE | 2025-02-09 15:12 | ESPR_ITS ---
<Statement entered by Otf Peña MD - 02/09/25 22:48> I saw and examined patient personally and supervised PGY 1 resident, Dr. Clements with formulating a management plan. I agree with the documentation with the exceptions as listed below. 79-year-old female with history of metastatic colon cancer (s/p chemoradiation with CAPOX chemotherapy), 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 Patient admitted for sepsis secondary to UTI. Problem list: 1. Acute kidney injury on CKD stage IIIb 2. E. coli bacteremia secondary to 11 cm pelvic abscess 3. UTI 4. Insulin-dependent diabetes mellitus type 2 [5.6%] 5. History of metastatic colon cancer on chemotherapy s/p resection of rectum and anus on 08/2024 6. Primary pretension 7. Hyperlipidemia Patient presented with severe nausea and vomiting and had NG tube placed on admission. For the past 48 hours she has been n.p.o. patient underwent successful IR guided pelvic drain placement today for her pelvic abscess and sample was sent for culture. NG tube was subsequently clamped and patient started on clear liquid diet as tolerated. Currently on Zosyn IV for bacteremia. Plan of care discussed with Attending Dr. Christine Peña MD PGY 2 Disclaimer: This note was dictated by speech recognition. Minor errors in joint terminal attack controller may be present due to voice recognition software. Documentation for date of: 02/09/25 Subjective Subjective Interval history: Patient seen and examined at bedside. No current complaints, denies any fever/chills. After having the patient get up to chair and walk short distances on the floor yesterday, patient developed large loose brown bowel movement at 6 PM yesterday. Patient has not eaten for 2 days while she was feeling nauseous, vomiting recurrently, requiring NG tube for symptom alleviation. Patient received clear liquid diet trial after attempted CT drain placement today. Reached out to patient's primary general surgeon yesterday Dr Tien Mitchell at [facility] He recommends that patient undergo CT drainage with drain placement, if patient is stable to be discharged outpatient and follow-up with his office If patient's condition deteriorates he recommends to inform him and initiate transfer to [facility] Exam Vital Signs Temp Pulse Resp BP Pulse Ox O2 Del Method O2 Flow Rate 98.6 F 116 H 25 H 141/78 H 94 L Room Air 1 02/09/25 12:47 02/09/25 13:12 02/09/25 13:12 02/09/25 13:12 02/09/25 13:12 02/09/25 13:12 02/08/25 04:00 Narrative Exam General: AOx3, no acute distress, able to speak full sentences, Persian-speaking HEENT: NC/AT, mucous membranes moist, bilateral sclera anicteric Cardiovascular: regular rate and rhythm, S1/S2 present, no murmurs appreciated Pulmonary: clear to auscultation bilaterally, no rales/rhonchi/wheezes Abdominal: soft, non-tender, non-distended, no rebound/guarding, normal bowel sounds present, colostomy bag noted. Musculoskeletal: normal ROM, no peripheral edema Skin: warm and dry, intact, no rashes, Neuro: CN II-XII intact, no focal deficits Objective Labs 02/09/25 05:14 02/09/25 05:14 Labs: Laboratory Results - last 24 hr 02/09/25 05:14 WBC 6.1 D RBC 3.30 L Hgb 10.2 L D Hct 30.7 L MCV 93 MCH 30.9 MCHC 33.2 RDW Std Deviation 56.6 H Plt Count 75 L Neut % (Auto) 71 Lymph % (Auto) 20 Whitman % (Auto) 7 Eos % (Auto) 1 Baso % (Auto) 1 Neut # (Auto) 4.4 Lymph # (Auto) 1.2 Whitman # (Auto) 0.4 Eos # (Auto) 0.1 Baso # (Auto) 0.0 Immature Gran # (Auto) 0.03 H Absolute Nucleated RBC 0.00 Immature Gran % 1 H Nucleated RBC % 0 PT 12.2 INR 1.2 APTT 28.5 Sodium 142 Potassium 4.1 Chloride 103 Carbon Dioxide 26.6 Anion Gap 12 BUN 44 H Creatinine 2.6 H D Estim Creat Clear Calc 13.1 L eGFR 18 L BUN/Creatinine Ratio 17 Glucose 79 D Calculated Osmolality 293 Calcium 8.5 Corrected Calcium 9.1 Phosphorus 5.0 Magnesium 2.5 Total Bilirubin 0.7 AST 18 ALT < 7 L Alkaline Phosphatase 87 D Total Protein 5.5 L Albumin 3.3 L D Globulin 2.2 L Albumin/Globulin Ratio 1.5 Misc Test Result Platelets confirmed ABG Interpretation ABG results: 02/03/25 22:45 VBG pH 7.39 VBG pCO2 31 L VBG pO2 52 VBG Base Excess -5 L Quality Measures Quality Measures VTE prophylaxis and none Advance care planning discussed with:: patient and child Assessment & Plan Assessment Current Active Medications: Generic Name Dose Route Start Last Admin Trade Name Freta PRN Reason Stop Dose Admin Acetaminophen 650 mg 02/04/25 00:06 02/05/25 08:11 Acetaminophen 325 Mg Tablet PO 03/06/25 00:05 650 mg Q6HR PRN Administration PAIN (1-3) OR FEVER > 100.4 Hydrocodone Bitart/Acetaminophen 1 tab 02/05/25 09:28 02/05/25 09:39 Hydrocodone/Apap 5/325 Tablet PO 02/10/25 09:27 1 tab Q6HR PRN Administration PAIN SCALE 4-10(Mod-Sev Dextrose 50 ml 02/04/25 00:12 Dextrose 50%-Water Inj 50 Ml Syringe IV 03/06/25 00:11 Q15MIN PRN BG <50 OR BG <70 & pt unresponsive Dextrose 25 ml 02/04/25 00:12 Dextrose 50%-Water Inj 50 Ml Syringe IV 03/06/25 00:11 Q15MIN PRN BG 50-70 responsive npo pt Gabapentin 300 mg 02/05/25 09:30 02/09/25 08:09 Gabapentin 300 Mg Capsule PO 03/07/25 09:29 Not Given Q12HR [facility] Glucagon 1 mg 02/04/25 00:12 Glucagon Inj 1 Mg Vial IM Q15MIN PRN BG <70, and no IV access Heparin Sodium (Porcine) 5,000 unit 02/04/25 21:00 02/08/25 20:33 Heparin Sod Inj 5000 Unit/Ml Vial SC 02/18/25 20:59 Not Given On Hold: 02/08/25 23:00 Q12HR [facility] Piperacillin/Tazobactam/Dextrose 3.375 gm in 50 mls @ 12.5 mls/hr 02/09/25 21:00 Zosyn IV 02/14/25 20:59 Q12HR [facility] Protocol Sodium Chloride 1,000 mls @ 65 mls/hr 02/09/25 12:15 02/09/25 12:17 Ns IV 02/10/25 03:38 65 mls/hr .[id number] [facility] Administration Insulin Human Lispro 0 unit 02/08/25 06:00 02/09/25 12:35 Insulin Lispro (Admelog) 1 Unit/0.01 Ml Unit SC 03/10/25 05:59 Not Given Q6HR [facility] Protocol Ondansetron HCl 4 mg 02/04/25 00:06 02/07/25 12:23 Ondansetron Inj 2 Mg/Ml Inj 2 Ml IVP 03/06/25 00:05 4 mg Q6H PRN Administration NAUSEA OR VOMITING Protocol Pharmacy Consult 1 each 02/09/25 07:38 Pharmacy Renal Dose Adjustment 1 Ea XX 03/11/25 07:37 PRN PRN CONSULT Polyethylene Glycol 34 gm 02/07/25 14:25 02/09/25 08:09 Polyethylene Glycol 17 Gm Packet PO 03/09/25 14:24 Not Given QDAY [facility] Sennosides 2 tab 02/08/25 09:00 02/09/25 08:09 Senna/Docusate Sod 1 Tab Tablet PO 03/10/25 08:59 Not Given QDAY [facility] Protocol Plan 79-year-old female with history of metastatic colon cancer (s/p chemoradiation with CAPOX chemotherapy), 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 Patient admitted for sepsis secondary to UTI. #Acute Kidney Injury #CKD stage, IIIB Baseline eGFR in high 40s. On admission, creatinine 1.1, baseline 1.2-1.3. BNP elevated 471, euvolemic, elevation likely secondary to CKD as kidneys may not clear BNP efficiently versus age-related changes On 02/08, creatinine 2.0, BUN 37, eGFR 25, BUN/creatinine 19. Elevated kidney function tests most likely due to prerenal azotemia in the setting of recent repeated vomiting and n.p.o. status. On PE, patient demonstrating dry oral mucosa, and skin tenting consistent with dehydration s/p Lactated Ringer's IV 1 L at 250 mL/h 02/08 On 02/09, creatinine kept trending up to 2.6, BUN 44, BUN/Cr 17. Plan: ? IVB NS 0.5L at 250mL/h followed by 65mL/h maintenance fluid (weight-based) ? Monitor renal function daily ? Encourage oral hydration ? Avoid nephrotoxic drugs ? Renally dose medications as needed #E. coli bacteremia #11 cm Pelvic abscess #Urinary tract infection #History of ESBL UTI Sepsis due to UTI with acute sepsis-related organ dysfunction as evidence by lactic acidosis, 4.8 with repeat 4.0, procalcitonin 47.16 2-day history of chills, weakness, and subjective fevers. Her daughter reports a Tmax of 100.1 WBC 22.2 UA showed WBC 68, leuk esterase positive. Chest x-ray shows early bibasilar pneumonia CT Abdo/pelvis showed bilobed fluid collection in the pelvis 11 cm which projects above the urinary bladder and may represent an abscess versus dilated rectosigmoid colon In ED patient received 2 L of IVF, also received ceftriaxone 1 g, ciprofloxacin 400 mg, metronidazole 500 mg. - Operative report from 09/12/2023 for resection of rectal cancer by Dr Mitchell Reports an oncological resection of the rectum and anus to have been performed successfully. Therefore, the fluid filled sacs as found on CT abdomen and pelvis could not be representing a dilated rectosigmoid colon or have an association with those structures. It's more likely that the patient has an 11cm pelvic abscess. - CLAIM REP, Dr Velez, was consulted who states that the aformentioned abdominal lesion is unlikely to have a gynecological source. No gynocological intervention is necessary at this time. - General Surgery recommended reaching out to patient's primary surgeon Dr Tien Mitchell at [facility] - Discussed with Dr. Mitchell he recommends that patient undergo IR drainage with drain placement, if patient is stable to be discharged outpatient and follow-up with his office. If patient's condition deteriorates he recommends to inform him and initiate transfer to [facility] - Culture positive for E. coli sensitive to meropenem - Urine cultures drawn on 02/03 during this admission were negative for any growth. Meropenem, which was chosen based on previous urine culture results Pseudomonas resistant to Zosyn, is discontinued and patient is started on Zosyn to complete a 7-day course by February 10. - Discontinued meropenem (02/03-02/07) Plan ?S/P successful CT-guided percutaneous placement of drainage catheter in pelvic abscess and removal of 200 cc grossly purulent fluid. Sent in for culture and sensitivity report. ? Started Zosyn (02/08-02/10) for total 7-day course of antibiotics ? Dilaudid IVP 0.5mg Q6h PRN #Type 2 diabetes mellitus, insulin-dependent #History of neuropathy Last A1c 5.6 12/04 Takes glargine 10 units subcut every afternoon Plan ? Insulin sliding scale ordered ? 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 Lisa. On chemotherapy treatment. Plan ? Follow-up outpatient #HTN #HLD Lipid panel 11/27: trig 155, cholesterol 90, LDL 43, HDL 16. Takes carvedilol and nifedipine Plan ? Continue to hold antihypertensives #Lactic acidosis, resolved Health Maintenance: Diet: CLD GI prophylaxis: Not indicated DVT prophylaxis: Heparin every 12 hours Antibiotics: Meropenem CODE STATUS: Full Disposition: Telemetry This case was discussed with my attending physician, Dr. King, and senior resident, Dr Peña. Even though this this note was carefully revised there may still be minor errors in joint terminal attack controller due to voice recognition software. Jaci Clements, PGY I Attending Provider Attestation/Addendum Patient with colorectal cancer admitted for recurrent pelvic abscess scheduled for IR drainage this afternoon. She complained of having chills and feeling cold inside her room. I spoke with her family members at bedside with one of the relatives translating. The patient will need IR drain and continue antibiotic treatment to get rid of infection. We will continue to monitor the patient's response to to treatment. Discussed with staff.
--- NOTE | 2025-02-09 15:33 | PC.NURSE ---
1435 patient is awake, alert, breathing unlabored, s/p pelvic abscess drain placement, dressing to lower back dry with no bleeding, drain attached to accordian drainage bag and draining small amount of clear red output. Patient transferred back to room 261, bedside report given to Carolyne JEAN. Patient has NG tube right nare clamped, colostomy bag left lower abdomen, folley catheter draining well, and port a cath to right chest.
[2025-02-09] MEDS: ONDANSETRON INJ 2 MG/ML INJ 2 ML 4 MG IVP (16:02)
[2025-02-09] MEDS: HYDROmorphone INJ 2 MG/ML VIAL 0.5 MG IVP (16:42)
[2025-02-10] VITALS (9 sets, daily range): BP systolic 96–115; BP diastolic 49–63; PULSE 61–106; RESP 16–22; TEMP 36.1–38.3; O2SAT 95–98; BMI 24.1
[2025-02-10] MEDS: ACETAMINOPHEN IVPB 1,000 MG/100 ML VIAL 250 MG IV (01:44)
[2025-02-10 06:12] LABS: Basophils # (Auto) 0.1 Thou/mm3 (0.0-0.2); Basophils % (Auto) 1 % (0-2.5); Eosinophils # (Auto) 0.0 Thou/mm3 (0.0-0.5); Eosinophils % (Auto) 0 % (0-10); Hematocrit 25.2 % (36.0-46.0); Immature Granulocytes Auto 0.26 Thou/mm3 (0.00-0.00); Lymphocytes # (Auto) 1.4 Thou/mm3 (1.0-4.8); Lymphocytes % (Auto) 6 % (10-50); Mean Corpuscular HGB Conc 33.3 g/dl (31.0-37.0); Mean Corpuscular Hemoglobin 31.2 pg (25.0-35.0); Mean Corpuscular Volume 94 fL (80-100); Monocytes # (Auto) 0.7 Thou/mm3 (0.0-0.8); Monocytes % (Auto) 3 % (0-12); Neutrophils # (Auto) 19.5 Thou/mm3 (1.8-7.7); Neutrophils % (Auto) 89 % (37-80); Nucleated Red Blood Cell # 0.00 Thou/mm3 (0.00-0.00); Nucleated Red Blood Cell % 0 /100 WBC (0); RDW Standard Deviation 58.4 fL (36.4-46.3); Red Blood Count 2.69 Miln/mm3 (4.00-5.20); White Blood Count 21.9 Thou/mm3 (3.6-11.0)
[2025-02-10 06:41] LABS: Albumin, Serum 3.0 gm/dL (3.4-4.8); Alkaline Phosphatase 90 U/L (46-116); Anion Gap 15 (7-16); Aspartate Amino Transferase 22 U/L (0-34); Bilirubin,Total 0.7 mg/dL (0.3-1.2); Blood Urea Nitrogen 52 mg/dL (9-23); Calcium 7.7 mg/dL (8.3-10.6); Calcium (Corrected) 8.5 mg/dL (8.5-10.1); Carbon Dioxide 22.1 mMol/L (20.0-31.0); Chloride 108 mMol/L (98-107); Glucose 148 mg/dL (74-106); Magnesium 2.1 mg/dL (1.6-2.6); Osmolality,Calculated 305 (275-295); Phosphorous 5.7 mg/dL (2.4-5.1); Potassium 4.0 mMol/L (3.4-5.1); Sodium 145 mMol/L (136-145)
--- NOTE | 2025-02-10 06:58 | XR_ITS ---
Examination: Retroperitoneal ultrasound, complete Technique: Multiple high resolution grayscale images of the retroperitoneum obtained, including kidneys and bladder. Exam date and time: February 10, 2025, 0754 hours INDICATIONS: Acute renal insufficiency abdominal pain and vomiting beginning 2 days ago FINDINGS: Right kidney 10.3 cm renal cortex 1.4 cm Mild free fluid surrounding the kidney Moderate renal scar formation Mild dilatation lower pole calyces Left kidney 10.9 cm cortex 1.4 cm Moderate renal scar formation No hydronephrosis Contracted urinary bladder impression: Moderate bilateral renal scar formation Mild dilatation lower pole calyces right kidney Bilateral renal cortical thinning
[2025-02-10 07:08] LABS: BUN/Creatinine Ratio 15 Ratio (12-20); Creatinine (Component) 3.5 mg/dL (0.6-1.3); Estimated Creatinine Clearance 9.8 mL/min (>60); eGFR 13 See Note
[2025-02-10] MEDS: RINGERS LACTATED 1000 ML 1,000 ML 999 ML IV (07:17)
[2025-02-10 07:40] LABS: Collection Type, Urine Clean Catch; RBC,Urine 0 /hpf (0-3)
[2025-02-10 07:58] LABS: Hemoglobin 8.4 g/dL (12.0-16.0); Platelet Count 58 Thou/mm3 (140-440)
[2025-02-10 08:10] LABS: Amorphous Crystals,Urine Present (Absent); Bacteria,Urine 1+; Bilirubin,Urine Negative (Negative); Blood,Urine 1+ (Negative); Color,Urine Yellow (Lt Yel-Yel); Glucose, Urine Negative (Negative); Ketones,Urine 1+ (Negative); Leukocyte Esterase,Urine Positive (Negative); Nitrite,Urine Negative (Negative); PH,Urine 6.5 (5.0-7.0); Protein,Urine 3+ (Neg - Trace); Specific Gravity,Urine 1.030 (1.001-1.035); Squamous Epithelial Cell,Urine 2 /hpf (0-5); Urobilinogen,Urine Negative mg/dL (0.0-1.0); WBC,Urine 260 /hpf (0-5)
[2025-02-10 08:15] LABS: Alanine Aminotransferase 7 U/L (10-49)
[2025-02-10 08:16] LABS: Chloride,Urine Random 41.8 mMol/L (55.0-125.0); Creatinine,Random Urine 81 mg/dL (30-125); Potassium,Urine Random 54 mMol/L (12-62); Sodium,Urine Random 62.8 mMol/L (20.0-110.0)
[2025-02-10] MEDS: RINGERS LACTATED 1000 ML 1,000 ML 70 ML IV (08:22)
--- NOTE | 2025-02-10 08:39 | PC.SS ---
Update: Pelvic drain has been placed. Nephrology consulted due to worsening THOMAS.
[2025-02-10] MEDS: PIPER/TAZO 3.375 GM PREMIX 3.375 GM/50 ML BAG IV ×2 (09:06→21:10)
--- NOTE | 2025-02-10 09:08 | PD.RESCONSUL ---
HPI Data of Consult Consult date: 02/10/25 Requesting Physician: Ewa Collado DO Admitting Provider: Ct Dumont MD Attending Provider: Ewa Collado DO Primary Care Provider: Radha Cristobal PA-C Consult Narrative Reason for consult: THOMAS History of present illness: Informant-family Ms. Roa is a 79-year-old female with history of metastatic colon cancer (s/p chemoradiation with CAPOX chemotherapy), colectomy with colostomy in August 2023, CKD stage 3b, insulin-dependent diabetes mellitus with neuropathy, hypertension, hyperlipidemia, and anemia, presenting with a 2-day history of chills, weakness, and subjective fevers. Her daughter reports a Tmax of 100.1 today. The patient denies dysuria, hematuria, urinary frequency, nausea, vomiting, or abdominal pain. Patient has a chronic Gorman catheter in place. Patient was previously admitted for complicated ESBL UTI in December 2024 and was treated with levofloxacin. ED course: Initial vitals include T 99.7, BP 139/79, HR 106, RR 18, 97% on room air. Notable labs include WBC 22.2, hemoglobin 10.3, MCV 91, platelets 133, potassium 3.5, bicarb 17.1, BUN 25, creatinine 1.1, lactic acid 4.8 with repeat 4.0, glucose 186, magnesium 1.3, T. bili 0.5, LFTs mildly elevated with AST 117, ALT 56, alk phos 157, lactate dehydrogenase 344, albumin 3.2, Pro-Corwin 47.16. UA showed WBC 68, leuk esterase positive. CT Abdo/pelvis showed bilobed fluid collection in the pelvis 11 cm which projects above the urinary bladder and may represent an abscess versus dilated rectosigmoid colon Past medical history: As stated above. Past surgical history: Colectomy with colostomy (08/2023), cholecystectomy (2019) Allergies: NKDA. Family history: Father diabetes, no family history of cancer Social history: Denies alcohol use, smoking, or illicit drug use. Patient was admitted to telemetry for ESBL bacteremia secondary to UTI. Nephrology consulted for worsening THOMAS on CKD stage 3b since 02/08. 02/10/25: Patient seen and assessed at bedside with family at bedside. Telephone mold sprayer used for Russian translation. No complaints this morning. Per chart review, NG tube placed and made NPO on 02/07 due to concern for ileus. clamped on 02/09 and plan to remove today per primary team. This morning at bedside, gorman draining light urine but decreased output of 350 cc over past 24 hours (ideally 600cc/24hrs). Colostomy bag at left lower quadrant draining copious amounts of green loose stool. Creatinine 3.5 (from 2.6). Sodium slowly increasing, 145 today. GFR worsening, 13 today. She was just restarted on oral diet yesterday but appears to have poor oral intake. Received IVF since 02/08, given another bolus IV LR 1L today. Encouraged oral hydration with water. Continue IV fluids, does not need dialysis at this time. Will re-evaluate urine output and renal panel tomorrow. cc:: cc: Ewa Collado DO Past Medical History Past Medical History NEUROLOGIC: Positive Peripheral Neuropathy; Negative Neurological Disorders or Seizures CARDIAC: Positive Edema and Hypertension; Negative Cardiac Disorders, Cardiac Arrhythmia, Atrial Fibrillation, Angina, Atherosclerotic Heart Disease, Aneurysm, Congestive Heart Failure, Congenital Heart Disease or Cardiomyopathy RESPIRATORY: Negative Chronic Obstructive Pulmonary Disease (COPD) or Asthma GASTROINTESTINAL: Positive Colorectal Cancer; Negative Gastrointestinal Disorders or Hepatitis GENITOURINARY: Positive Genitourinary Disorders and Renal Disease; Negative Dialysis REPRODUCTIVE: Positive Previous Pregnancies; Negative Pelvic Inflammatory Disease MUSCULOSKELETAL: Positive Fractures ENDOCRINE: Positive Diabetes Mellitus Type 2; Negative Endocrine Disorders or Diabetes Mellitus Type 1 HEMATOLOGIC: Positive Blood Disorders and Anemia; Negative Sickle Cell Disease OTHER HISTORY: Positive Hospitalization, Blood Transfusions, Cancer and Colorectal Cancer; Negative Autoimmune Disease, Blood Transfusion Reaction or Anesthesia Reactions Family History FAMILY HISTORY: Negative Family Cancer, Family Surgery or Family Anesthesia Reaction Surgical History SURGICAL: Positive Abdominal Surgery, Bowel Surgery and Hip Sx (LEFT HIP); Negative Ear Surgery, Nephrectomy or Neurologic Surgery Social History SMOKING STATUS: Never smoker Past Medical History Comments PMH COMMENT: Per chart review: Type 2 diabetes Hypertension Metastatic rectal cancer diagnosed in 2022 Neuropathy Hyperlipidemia Chronic kidney disease Past surgical history: Colon surgery with colectomy in [place] in August 2023 Cholecystectomy in 2019 x 9 Left hip replacement Exam Vital Signs Temp Pulse Resp BP Pulse Ox O2 Del Method O2 Flow Rate 97.1 F 66 16 103/49 L 98 Room Air 5 02/10/25 08:00 02/10/25 08:00 02/10/25 08:00 02/10/25 08:00 02/10/25 08:00 02/10/25 08:00 02/09/25 14:30 Narrative Exam Physical Exam General: Russian speaking, cachetic elderly lady. Awake and in no acute distress. Conversational, ill appearing. HEENT: Normocephalic, atraumatic, mucous membranes dry. NG tube in right nares. Heart: Regular rate and rhythm, normal S1 and S2, no murmurs appreciated. Lungs: Clear to auscultation with no wheezing or crackles. Abdomen: Soft, nondistended, nontender, positive bowel sounds. No guarding or rebound tenderness. Colostomy on left lower abdomen, draining copious green loose stool. Pelvic percutaneous drainage catheter in place, 200cc bloody fluid. : Gorman in place. Neurologic: Alert and oriented x3, no gross neurological deficit, and patient able to move all 4 extremities. Extremities: No edema. Skin: No rash or ecchymoses. Results Labs 02/10/25 05:31 02/10/25 14:01 Labs: Short CBC 02/10/25 Range/Units 05:31 WBC 21.9 H D (3.6-11.0) Thou/mm3 Hgb 8.4 L (12.0-16.0) g/dL Hct 25.2 L (36.0-46.0) % Plt Count 58 L D (140-440) Thou/mm3 BMP 02/10/25 05:31 Sodium 145 Potassium 4.0 Chloride 108 H Carbon Dioxide 22.1 BUN 52 H Creatinine 3.5 H D Glucose 148 H D Calcium 7.7 L Liver Function 02/10/25 Range/Units 05:31 Total Bilirubin 0.7 (0.3-1.2) mg/dL AST 22 (0-34) U/L ALT 7 L (10-49) U/L Alkaline Phosphatase 90 (46-116) U/L Albumin 3.0 L (3.4-4.8) gm/dL ABG Interpretation ABG results: 02/03/25 22:45 VBG pH 7.39 VBG pCO2 31 L VBG pO2 52 VBG Base Excess -5 L Quality Measures Quality Measures VTE prophylaxis and none Advance care planning discussed with:: patient and child Medications Home Medications and Allergies Home Medications ?Medication ?Instructions ?Recorded ?Confirmed ?Type carvedilol 3.125 mg tablet 3.125 mg PO BID 10/22/24 02/04/25 History gabapentin 300 mg capsule 300 mg PO Q12H 10/22/24 02/04/25 History nifedipine 30 mg tablet,extended 30 mg PO HS 10/22/24 02/04/25 History release insulin glargine 100 unit/mL (3 10 unit subcut QPM 11/26/24 02/04/25 History mL) subcutaneous pen (Basaglar KwikPen U-100 Insulin) ferrous sulfate 325 mg (65 mg 325 mg PO QDAY 02/04/25 02/04/25 History iron) tablet (FeroSul) Allergies Allergy/AdvReac Type Severity Reaction Status Date / Time No Known Allergies Allergy Verified 02/09/25 13:19 Visit Medications Acetaminophen (Acetaminophen 325 Mg Tablet) 650 mg PO Q6HR PRN PRN Reason: PAIN (1-3) OR FEVER > 100.4 Stop: 03/06/25 00:05 Last Admin: 02/05/25 08:11 Dose: 650 mg Hydrocodone Bitart/Acetaminophen (Hydrocodone/Apap 5/325 Tablet) 1 tab PO Q6HR PRN PRN Reason: PAIN SCALE 4-10(Mod-Sev Stop: 02/10/25 09:27 Last Admin: 02/05/25 09:39 Dose: 1 tab Dextrose (Dextrose 50%-Water Inj 50 Ml Syringe) 50 ml IV Q15MIN PRN PRN Reason: BG <50 OR BG <70 & pt unresponsive Stop: 03/06/25 00:11 Dextrose (Dextrose 50%-Water Inj 50 Ml Syringe) 25 ml IV Q15MIN PRN PRN Reason: BG 50-70 responsive npo pt Stop: 03/06/25 00:11 Gabapentin (Gabapentin 300 Mg Capsule) 300 mg PO Q12HR [facility] Stop: 03/07/25 09:29 Last Admin: 02/09/25 21:05 Dose: Not Given Glucagon (Glucagon Inj 1 Mg Vial) 1 mg IM Q15MIN PRN PRN Reason: BG <70, and no IV access Heparin Sodium (Porcine) (Heparin Sod Inj 5000 Unit/Ml Vial) 5,000 unit SC Q12HR [facility] On Hold: 02/08/25 23:00 Stop: 02/18/25 20:59 Last Admin: 02/08/25 20:33 Dose: Not Given Hydromorphone HCl (Hydromorphone Inj 2 Mg/Ml Vial) 0.5 mg IVP Q6H PRN PRN Reason: PAIN SCALE 7-10 (Severe Stop: 02/14/25 16:19 Last Admin: 02/09/25 16:42 Dose: 0.5 mg Piperacillin/Tazobactam/Dextrose (Zosyn) 3.375 gm in 50 mls @ 12.5 mls/hr IV Q12HR [facility]; Protocol Stop: 02/14/25 20:59 Last Admin: 02/10/25 09:06 Dose: 12.5 mls/hr Lactated Ringer's (Lactated Ringers) 1,000 mls @ 70 mls/hr IV .[id number] ONE Stop: 02/10/25 22:17 Last Admin: 02/10/25 08:22 Dose: 70 mls/hr Insulin Human Lispro (Insulin Lispro (Admelog) 1 Unit/0.01 Ml Unit) 0 unit SC Q6HR [facility]; Protocol Stop: 03/10/25 05:59 Last Admin: 02/10/25 06:15 Dose: Not Given Ondansetron HCl (Ondansetron Inj 2 Mg/Ml Inj 2 Ml) 4 mg IVP Q6H PRN; Protocol PRN Reason: NAUSEA OR VOMITING Stop: 03/06/25 00:05 Last Admin: 02/09/25 16:02 Dose: 4 mg Pharmacy Consult (Pharmacy Renal Dose Adjustment 1 Ea) 1 each XX PRN PRN PRN Reason: CONSULT Stop: 03/11/25 07:37 Polyethylene Glycol (Polyethylene Glycol 17 Gm Packet) 34 gm PO QDAY [facility] Stop: 03/09/25 14:24 Last Admin: 02/09/25 08:09 Dose: Not Given Sennosides (Senna/Docusate Sod 1 Tab Tablet) 2 tab PO QDAY [facility]; Protocol Stop: 03/10/25 08:59 Last Admin: 02/09/25 08:09 Dose: Not Given Discontinued Medications Acetaminophen (Acetaminophen 325 Mg Tablet) 650 mg PO X1 ONE Stop: 02/03/25 15:57 Last Admin: 02/03/25 16:11 Dose: 650 mg Enoxaparin Sodium (Enoxaparin Sod Inj 40 Mg/0.4 Ml Syringe) 40 mg SC QDAY [facility] Stop: 02/18/25 08:59 Last Admin: 02/04/25 08:47 Dose: 40 mg Fentanyl Citrate (Fentanyl Cit Inj 50 Mcg/Ml Amp 2ml) 50 mcg IVP X1 ONE Stop: 02/09/25 14:02 Last Admin: 02/09/25 14:11 Dose: 50 mcg Sodium Chloride (Ns) 500 mls @ 999 mls/hr IV .Q31M ONE Stop: 02/03/25 17:58 Last Infusion: 02/03/25 18:58 Dose: Infused Ceftriaxone Sodium/Dextrose (Rocephin/D5w 1gm Iv Premix) 1 gm in 50 mls @ 100 mls/hr IV X1 ONE Stop: 02/03/25 17:57 Last Infusion: 02/03/25 18:39 Dose: Infused Lactated Ringer's (Lactated Ringers) 1,000 mls @ 999 mls/hr IV .Q1H1M ONE Stop: 02/03/25 19:04 Last Admin: 02/03/25 18:38 Dose: Not Given Lactated Ringer's (Lactated Ringers) 500 mls @ 999 mls/hr IV .Q31M ONE Stop: 02/03/25 18:34 Last Admin: 02/03/25 18:37 Dose: Not Given Ceftriaxone Sodium/Dextrose (Rocephin/D5w 1gm Iv Premix) 1 gm in 50 mls @ 100 mls/hr IV X1 ONE Stop: 02/03/25 18:33 Last Admin: 02/03/25 18:09 Dose: Not Given Lactated Ringer's (Lactated Ringers) 1,500 mls @ 999 mls/hr IV .Q1H31M ONE Stop: 02/03/25 19:34 Last Infusion: 02/03/25 20:11 Dose: Infused Ciprofloxacin/Dextrose (Cipro Ivpb) 400 mg in 200 mls @ 200 mls/hr IV X1 ONE Stop: 02/03/25 22:53 Last Infusion: 02/03/25 23:36 Dose: Infused Metronidazole (Flagyl 500 Mg Iv) 500 mg in 100 mls @ 100 mls/hr IV X1 ONE Stop: 02/03/25 22:53 Last Infusion: 02/03/25 23:36 Dose: Infused Magnesium Sulfate (Magnesium Sulfate Ivpb) 4 gm in 50 mls @ 12.5 mls/hr IV X1 ONE Stop: 02/04/25 02:31 Last Infusion: 02/04/25 03:32 Dose: Infused Lactated Ringer's (Lactated Ringers) 1,000 mls @ 75 mls/hr IV .[id number] [facility] Stop: 02/04/25 13:34 Last Admin: 02/04/25 00:36 Dose: Not Given Piperacillin/Tazobactam/Dextrose (Zosyn) 3.375 gm in 50 mls @ 12.5 mls/hr IV Q8HR [facility]; Protocol Stop: 02/11/25 05:59 Last Infusion: 02/04/25 05:52 Dose: 0 mls/hr Piperacillin/Tazobactam/Dextrose (Zosyn) 3.375 gm in 50 mls @ 100 mls/hr IV X1 ONE; Protocol Stop: 02/04/25 00:44 Last Infusion: 02/04/25 01:08 Dose: Infused Lactated Ringer's (Lactated Ringers) 1,000 mls @ 100 mls/hr IV .Q10H [facility] Stop: 02/04/25 10:16 Last Admin: 02/04/25 00:35 Dose: 100 mls/hr Lactated Ringer's (Lactated Ringers) 500 mls @ 999 mls/hr IV .Q31M ONE Stop: 02/04/25 02:12 Last Infusion: 02/04/25 02:13 Dose: Infused Meropenem 1,000 mg/ Sodium (Chloride) 50 mls @ 100 mls/hr IV Q12HR [facility] Stop: 02/11/25 05:44 Last Admin: 02/07/25 08:31 Dose: 100 mls/hr Doxycycline Hyclate 100 mg/ (Sodium Chloride) 100 mls @ 100 mls/hr IV BID [facility] Stop: 02/08/25 21:00 Last Admin: 02/08/25 20:37 Dose: 100 mls/hr Magnesium Sulfate (Magnesium Sulfate Ivpb) 2 gm in 50 mls @ 25 mls/hr IV X1 ONE Stop: 02/06/25 09:38 Last Infusion: 02/06/25 12:14 Dose: Infused Lactated Ringer's (Lactated Ringers) 500 mls @ 70 mls/hr IV .Q7H9M [facility] Stop: 02/06/25 17:14 Last Infusion: 02/06/25 17:30 Dose: Infused Piperacillin/Tazobactam/Dextrose (Zosyn) 3.375 gm in 50 mls @ 12.5 mls/hr IV Q8HR [facility]; Protocol Stop: 02/14/25 21:59 Last Admin: 02/09/25 05:40 Dose: 12.5 mls/hr Piperacillin/Tazobactam/Dextrose (Zosyn) 3.375 gm in 50 mls @ 100 mls/hr IV X1 ONE; Protocol Stop: 02/07/25 11:59 Last Admin: 02/07/25 12:16 Dose: 100 mls/hr Lactated Ringer's (Lactated Ringers) 1,000 mls @ 250 mls/hr IV .Q4H ONE Stop: 02/08/25 12:08 Last Admin: 02/08/25 08:46 Dose: 250 mls/hr Sodium Chloride (Ns) 500 mls @ 250 mls/hr IV .Q2H ONE Stop: 02/09/25 09:57 Last Admin: 02/09/25 08:07 Dose: 250 mls/hr Sodium Chloride (Ns) 1,000 mls @ 65 mls/hr IV .[id number] [facility] Stop: 02/10/25 03:38 Last Admin: 02/09/25 12:17 Dose: 65 mls/hr Acetaminophen (Ofirmev Inj) 1,000 mg in 100 mls @ 250 mls/hr IV X1 ONE Stop: 02/10/25 01:42 Last Admin: 02/10/25 01:44 Dose: 250 mls/hr Lactated Ringer's (Lactated Ringers) 1,000 mls @ 999 mls/hr IV .Q1H1M ONE Stop: 02/10/25 07:54 Last Admin: 02/10/25 07:17 Dose: 999 mls/hr Insulin Human Lispro (Insulin Lispro (Admelog) 1 Unit/0.01 Ml Unit) 0 unit SC AC [facility]; Protocol Stop: 03/07/25 07:29 Insulin Human Lispro (Insulin Lispro (Admelog) 1 Unit/0.01 Ml Unit) 0 unit SC ACHS [facility]; Protocol Stop: 03/06/25 20:59 Last Admin: 02/06/25 07:29 Dose: Not Given Insulin Human Lispro (Insulin Lispro (Admelog) 1 Unit/0.01 Ml Unit) 0 unit SC ACHS [facility]; Protocol Stop: 03/06/25 20:59 Last Admin: 02/07/25 20:38 Dose: 2 unit Lidocaine HCl (Lidocaine Inj Pf 1% 30 Ml Vial) 9 ml INFL X1 ONE Stop: 02/09/25 14:02 Last Admin: 02/09/25 14:12 Dose: 9 ml Metoclopramide HCl (Metoclopramide Inj 5 Mg/Ml Vial 2 Ml) 5 mg IVP X1 ONE; Protocol Stop: 02/07/25 16:26 Last Admin: 02/07/25 16:49 Dose: 5 mg Nifedipine (Nifedipine Xl 30 Mg Tabcr) 30 mg PO QDAY [facility] Stop: 03/06/25 20:14 Nifedipine (Nifedipine Xl 30 Mg Tabcr) 30 mg PO HS [facility] Stop: 03/06/25 20:59 Last Admin: 02/05/25 20:20 Dose: 30 mg Potassium Chloride (Potassium Chloride 10% 20 Meq/15 Ml Udc) 20 meq PO X1 ONE Stop: 02/05/25 09:01 Last Admin: 02/05/25 08:11 Dose: 20 meq Potassium Chloride (Potassium Chloride 20 Meq Tabcr) 20 meq PO X1 ONE Stop: 02/09/25 08:21 Sennosides (Senna/Docusate Sod 1 Tab Tablet) 2 tab PO X1 ONE; Protocol Stop: 02/07/25 14:23 Last Admin: 02/07/25 17:11 Dose: Not Given Sodium Chloride (Sodium Chloride Rt 10% 15 Ml Nebu) 5 ml INH X1 ONE Stop: 02/04/25 07:49 Last Admin: 02/07/25 19:04 Dose: Not Given Assessment & Plan Plan Patient is a 79-year-old female with past medical history of metastatic colon cancer (s/p chemoradiation with CAPOX chemotherapy), colectomy with colostomy in August 2023, CKD stage 3b, insulin-dependent diabetes mellitus with neuropathy, hypertension, hyperlipidemia, and anemia, presenting with a 2-day history of chills, weakness, and subjective fevers. Admitted to telemetry for ESBL bacteremia secondary to UTI. #THOMAS on CKD stage, IIIB - Creatinine on admission 1.1 --> 2.0 (02/08) -> 2.6 -> 3.5. Baseline 0.8-1.2. - eGFR on admission >60 --> 51 -> 25 (02/08) -> 18 -> 13. Baseline eGFR 38-46. - Sodium 139 --> 145 (02/10) - NG tube placed on 02/07 due to concern for ileus. Clamped on 02/09. - Bilateral renal US 02/10 showed moderate bilateral renal scar formation with mild dilatation lower pole calyces in right kidney. Bilateral renal cortical thinning. Contracted urinary bladder. - Urine electrolytes: Na 62.8, Cr 81, K 54, Cl 41.8 - FeNa 1.9%, mixed prerenal and intrinsic - Likely multifactorial: prerenal in setting of prolonged NPO status and NG tube suction and intrinsic secondary to intermittent hypotension in setting of ESBL bacteremia and 2 days of non-renally dosed Zosyn Plan: - S/p IV LR maintenance fluids since 02/08. Given another 1L LR bolus and maintenance fluids today. Continue IV fluid resuscitation. Discussed with family that patient does not need dialysis at this time. - Will remove NG tube today per primary team - Monitor daily renal panel - Strict MARCELO's - Restarted on diet 02/09 however patient appears to have poor oral intake. Encourage oral hydration. - Avoid nephrotoxic drugs - Renally dose Zosyn and other medications #E. 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 Godinez. Radha Clayton DO, PGY-1 Attending Provider Attestation/Addendum Patient currently seen and examined with resident physician Dr. Clayton. Note reviewed, agree with findings and recommendations. Patient currently seen in telemetry. Family at bedside. certified registered nurse practitioner Marla helped with interpretation. Clinically patient looks rather hypovolemic with colostomy losses and decreased p.o. intake. Increased IV fluids to 125 mL/h. Patient also received CT with contrast on 02/03/2025. Renal ultrasound showed no hydronephrosis. Age-related changes in the renal ultrasound noted. Renal scan was ordered-noted nuclear medicine services down for the whole month. Will monitor urine output, creatinine closely. Potassium seems to be acceptable. Hold off on dialysis. Spoke to primary team. 2 daughters and son had several questions which were answered to their satisfaction. Thank you Dr. Collado for allowing me to participate in the care of Ms. Roa
[2025-02-10 09:11] LABS: Clarity,Urine Cloudy (Clear/Hazy)
[2025-02-10 09:28] LABS: Slide Review Platelets confirmed
[2025-02-10] MEDS: GABAPENTIN 300 MG CAPSULE PO ×2 (10:33→21:11)
[2025-02-10 13:07] LABS: Albumin/Globulin Ratio 1.4 (1.2-2.2); Globulin 2.2 gm/dL (2.3-3.5); Total Protein 5.2 gm/dL (5.7-8.2)
--- NOTE | 2025-02-10 13:31 | ESPR_ITS ---
<Statement entered by Otf Peña MD - 02/10/25 21:19> I saw and examined patient personally and supervised PGY 1 resident, Dr. Clements with formulating a management plan. I agree with the documentation with the exceptions as listed below. 79-year-old female with history of metastatic colon cancer (s/p chemoradiation with CAPOX chemotherapy), 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 Patient admitted for sepsis secondary to UTI. Problem list: 1. Acute kidney injury on CKD stage IIIb 2. E. coli bacteremia secondary to 11 cm pelvic abscess 3. UTI 4. Insulin-dependent diabetes mellitus type 2 [5.6%] 5. History of metastatic colon cancer on chemotherapy s/p resection of rectum and anus on 08/2024 6. Primary pretension 7. Hyperlipidemia Urine output decreased to 350 cc in past 24 hours. Pelvic abscess drained 10 cc overnight. BUN and creatinine worsened to 52 on 325 respectively. 1 L lactated ringer bolus ordered and placed on's lactated Ringer's IV fluids 125 cc/h. Nuclear medicine renal scan ordered as per nephrology recommendations. Plan of care discussed with Attending Dr. Melquiades Peña MD PGY 2 Disclaimer: This note was dictated by speech recognition. Minor errors in injection maintenance technician may be present due to voice recognition software. Documentation for date of: 02/10/25 Subjective Subjective Interval history: Patient seen and examined at bedside. No current complaints, denies any fever/chills. Patient reports alleviation of nausea and vomiting and good appetite on CLD. Family feels eager about advancing diet. Patient has been afebrile overnight except a brief episode of T 101F. Drain bag shows 160 mL of red-brown fluid. As previous blood cultures showed sensitivity profile ESBL, patient was placed on contact precautions. Patient continued on Zosyn daily past 7 days of treatment. Nephrology consulted for eGFR 13, and uptrending creatinine 3.5 this morning. Reached out to patient's primary general surgeon yesterday Dr Tien Mitchell at [facility] He recommends that patient undergo CT drainage with drain placement, if patient is stable to be discharged outpatient and follow-up with his office If patient's condition deteriorates he recommends to inform him and initiate transfer to [facility] Exam Vital Signs Temp Pulse Resp BP Pulse Ox O2 Del Method O2 Flow Rate 97.1 F 65 16 103/49 L 98 Room Air 5 02/10/25 08:00 02/10/25 12:00 02/10/25 08:00 02/10/25 08:00 02/10/25 08:00 02/10/25 08:00 02/09/25 14:30 Narrative Exam General: AOx3, no acute distress, able to speak full sentences, Chinese-speaking HEENT: NC/AT, mucous membranes moist, bilateral sclera anicteric Cardiovascular: regular rate and rhythm, S1/S2 present, no murmurs appreciated Pulmonary: clear to auscultation bilaterally, no rales/rhonchi/wheezes Abdominal: soft, non-tender, non-distended, no rebound/guarding, normal bowel sounds. Site of drain catheter on the back does not show purulence or bleeding from the point of penetration into the skin, covered in dressing properly. Present, colostomy bag noted with moderate liquid brown stool. Musculoskeletal: normal ROM, no peripheral edema Skin: warm and dry, intact, no rashes, Neuro: CN II-XII intact, no focal deficits Objective Labs 02/10/25 05:31 02/10/25 14:01 Labs: Laboratory Results - last 24 hr 02/10/25 02/10/25 05:31 07:12 WBC 21.9 H D RBC 2.69 L Hgb 8.4 L Hct 25.2 L MCV 94 MCH 31.2 MCHC 33.3 RDW Std Deviation 58.4 H Plt Count 58 L D Neut % (Auto) 89 H Lymph % (Auto) 6 L [place] % (Auto) 3 Eos % (Auto) 0 Baso % (Auto) 1 Neut # (Auto) 19.5 H Lymph # (Auto) 1.4 [place] # (Auto) 0.7 Eos # (Auto) 0.0 Baso # (Auto) 0.1 Immature Gran # (Auto) 0.26 H Absolute Nucleated RBC 0.00 Immature Gran % 1 H Nucleated RBC % 0 Sodium 145 Potassium 4.0 Chloride 108 H Carbon Dioxide 22.1 Anion Gap 15 BUN 52 H Creatinine 3.5 H D Estim Creat Clear Calc 9.8 L eGFR 13 L* BUN/Creatinine Ratio 15 Glucose 148 H D Calculated Osmolality 305 H Calcium 7.7 L Corrected Calcium 8.5 Phosphorus 5.7 H Magnesium 2.1 Total Bilirubin 0.7 AST 22 ALT 7 L Alkaline Phosphatase 90 Total Protein 5.2 L Albumin 3.0 L Globulin 2.2 L Albumin/Globulin Ratio 1.4 Ur Collection Type Clean Catch Urine Color Yellow Urine Clarity Cloudy A Urine pH 6.5 Ur Specific [place] 1.030 Urine Protein 3+ A Urine Glucose (UA) Negative Urine Ketones 1+ A Urine Blood 1+ A Urine Nitrite Negative Urine Bilirubin Negative Urine Urobilinogen (Auto) Negative Ur Leukocyte Esterase Positive Urine RBC 0 Urine WBC 260 H Ur Squamous Epith Cells 2 Amorphous Crystals Present A Urine Bacteria 1+ A Ur Random Creatinine 81 Ur Random Sodium 62.8 Ur Random Potassium 54 Ur Random Chloride 41.8 L Misc Test Result Platelets confirmed ABG Interpretation ABG results: 02/03/25 22:45 VBG pH 7.39 VBG pCO2 31 L VBG pO2 52 VBG Base Excess -5 L Quality Measures Quality Measures VTE prophylaxis and none Advance care planning discussed with:: patient and child Assessment & Plan Assessment Current Active Medications: Generic Name Dose Route Start Last Admin Trade Name Freq PRN Reason Stop Dose Admin Acetaminophen 650 mg 02/04/25 00:06 02/05/25 08:11 Acetaminophen 325 Mg Tablet PO 03/06/25 00:05 650 mg Q6HR PRN Administration PAIN (1-3) OR FEVER > 100.4 Dextrose 50 ml 02/04/25 00:12 Dextrose 50%-Water Inj 50 Ml Syringe IV 03/06/25 00:11 Q15MIN PRN BG <50 OR BG <70 & pt unresponsive Dextrose 25 ml 02/04/25 00:12 Dextrose 50%-Water Inj 50 Ml Syringe IV 03/06/25 00:11 Q15MIN PRN BG 50-70 responsive npo pt Gabapentin 300 mg 02/05/25 09:30 02/10/25 10:33 Gabapentin 300 Mg Capsule PO 03/07/25 09:29 300 mg Q12HR MARION Administration Glucagon 1 mg 02/04/25 00:12 Glucagon Inj 1 Mg Vial IM Q15MIN PRN BG <70, and no IV access Heparin Sodium (Porcine) 5,000 unit 02/04/25 21:00 02/08/25 20:33 Heparin Sod Inj 5000 Unit/Ml Vial SC 02/18/25 20:59 Not Given Q12HR MARION Hydromorphone HCl 0.5 mg 02/09/25 16:20 02/09/25 16:42 Hydromorphone Inj 2 Mg/Ml Vial IVP 02/14/25 16:19 0.5 mg Q6H PRN Administration PAIN SCALE 7-10 (Severe Piperacillin/Tazobactam/Dextrose 3.375 gm in 50 mls @ 12.5 mls/hr 02/09/25 21:00 02/10/25 09:06 Zosyn IV 02/14/25 20:59 12.5 mls/hr Q12HR MARION Administration Protocol Lactated Ringer's 1,000 mls @ 125 mls/hr 02/10/25 12:31 Lactated Ringers IV 02/10/25 15:59 .Q8H ONE Insulin Human Lispro 0 unit 02/08/25 06:00 02/10/25 06:15 Insulin Lispro (Admelog) 1 Unit/0.01 Ml Unit SC 03/10/25 05:59 Not Given Q6HR [facility] Protocol Ondansetron HCl 4 mg 02/04/25 00:06 02/09/25 16:02 Ondansetron Inj 2 Mg/Ml Inj 2 Ml IVP 03/06/25 00:05 4 mg Q6H PRN Administration NAUSEA OR VOMITING Protocol Pharmacy Consult 1 each 02/09/25 07:38 Pharmacy Renal Dose Adjustment 1 Ea XX 03/11/25 07:37 PRN PRN CONSULT Polyethylene Glycol 34 gm 02/07/25 14:25 02/09/25 08:09 Polyethylene Glycol 17 Gm Packet PO 03/09/25 14:24 Not Given QDAY [facility] Sennosides 2 tab 02/08/25 09:00 02/09/25 08:09 Senna/Docusate Sod 1 Tab Tablet PO 03/10/25 08:59 Not Given QDAY [facility] Protocol Plan 79-year-old female with history of metastatic colon cancer (s/p chemoradiation with CAPOX chemotherapy), 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 Patient admitted for sepsis secondary to UTI. #Acute Kidney Injury #CKD stage, IIIB Baseline eGFR in high 40s. On admission, creatinine 1.1, baseline 1.2-1.3. BNP elevated 471, euvolemic, elevation likely secondary to CKD as kidneys may not clear BNP efficiently versus age-related changes On 02/08, creatinine 2.0, BUN 37, eGFR 25, BUN/creatinine 19. Elevated kidney function tests most likely due to prerenal azotemia in the setting of recent repeated vomiting and n.p.o. status. On PE, patient demonstrating dry oral mucosa, and skin tenting consistent with dehydration s/p Lactated Ringer's IV 1 L at 250 mL/h 02/08 On 02/09, creatinine kept trending up to 2.6, BUN 44, BUN/Cr 17. On 02/10, creatinine elevated to 3.5, BUN 52, and eGFR 13. Ultrasound of the kidneys showed mild free fluid surrounding the right kidney as well as mild dilatation of the right lower pole calyces, and bilateral renal scar formation. Plan: ? Nephrology, Dr. Godinez, consulted; appreciate recommendations. ? IVB LR 1L followed by 75mL/h maintenance fluid (weight-based) ?DC'd Nixon cath after bladder training and replaced with PureWick external cath. ? Renal function panel and urine electrolytes ? Monitor renal function daily ? Encourage oral hydration ? Avoid nephrotoxic drugs ? Renally dose medications as needed #E. coli bacteremia, ESBL #11 cm Pelvic abscess #Urinary tract infection #History of ESBL UTI Sepsis due to UTI with acute sepsis-related organ dysfunction as evidence by lactic acidosis, 4.8 with repeat 4.0, procalcitonin 47.16 2-day history of chills, weakness, and subjective fevers. Her daughter reports a Tmax of 100.1 WBC 22.2 UA showed WBC 68, leuk esterase positive. Chest x-ray shows early bibasilar pneumonia CT Abdo/pelvis showed bilobed fluid collection in the pelvis 11 cm which projects above the urinary bladder and may represent an abscess versus dilated rectosigmoid colon In ED patient received 2 L of IVF, also received ceftriaxone 1 g, ciprofloxacin 400 mg, metronidazole 500 mg. - Operative report from 09/12/2023 for resection of rectal cancer by Dr Mitchell Reports an oncological resection of the rectum and anus to have been performed successfully. Therefore, the fluid filled sacs as found on CT abdomen and pelvis could not be representing a dilated rectosigmoid colon or have an association with those structures. It's more likely that the patient has an 11cm pelvic abscess. - STEM SETTER, Dr Velez, was consulted who states that the aformentioned abdominal lesion is unlikely to have a gynecological source. No gynocological intervention is necessary at this time. - General Surgery recommended reaching out to patient's primary surgeon Dr Tien Mitchell at [facility] - Discussed with Dr. Mitchell he recommends that patient undergo IR drainage with drain placement, if patient is stable to be discharged outpatient and follow-up with his office. If patient's condition deteriorates he recommends to inform him and initiate transfer to [facility] - Culture positive for E. coli sensitive to meropenem - Urine cultures drawn on 02/03 during this admission were negative for any growth. Meropenem, which was chosen based on previous urine culture results Pseudomonas resistant to Zosyn, is discontinued and patient is started on Zosyn. - Discontinued meropenem (02/03-02/07) Plan ?S/P successful CT-guided percutaneous placement of drainage catheter in pelvic abscess and removal of 200 cc grossly purulent fluid. Sent in for culture and sensitivity report. ? Zosyn 02/08 - ?Placed on contact precautions for history of ESBL bacteremia ?DC'd NG tube as patient developed bowel movement on MiraLAX, nausea/vomiting resolved ?Advance diet to CLD, and carb consistent ?Ordered CT AP follow-up study ? Dilaudid IVP 0.5mg Q6h PRN #Type 2 diabetes mellitus, insulin-dependent #History of neuropathy Last A1c 5.6 12/04 Takes glargine 10 units subcut every afternoon Plan ? Insulin sliding scale ordered ? 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 Lisa. On chemotherapy treatment. Plan ? Follow-up outpatient #HTN #HLD Lipid panel 11/27: trig 155, cholesterol 90, LDL 43, HDL 16. Takes carvedilol and nifedipine Plan ? Continue to hold antihypertensives #Lactic acidosis, resolved Health Maintenance: Diet: CLD GI prophylaxis: Not indicated DVT prophylaxis: Heparin every 12 hours Antibiotics: Meropenem CODE STATUS: Full Disposition: Telemetry This case was discussed with my attending physician, Dr. Arnett, and senior resident, Dr Peña. Even though this this note was carefully revised there may still be minor errors in injection maintenance technician due to voice recognition software. Jaci Clements DO PGY I Attending Provider Attestation/Addendum I have discussed and was present for the essential components of the history, physical examination, diagnosis, and treatment plan with the resident. I agree with the patient's care as documented by the resident and amended herein by me. Kristian Arnett DO. Although this document has been carefully reviewed, there may still be some phonetic and other typographical errors. These errors are purely grammatical due to imperfections in the software program and should not be construed in any way to compromise the substance of the patient's medical care during this visit.
--- NOTE | 2025-02-10 14:18 | XR_ITS ---
Examination: CT abdomen and pelvis without contrast. Coronal 3-D reconstructions. Sagittal 2-D reconstructions. Date and time of exam: February 10, 2025, 1558 hours, comparison February 04, 2025 INDICATIONS: Generalized abdominal pain today, CT abdomen February 04, 2025 INDICATIONS: Rectal carcinoma, large pelvic abscess on CT examination February 06, 2025, post abscess drainage placement CTDI: vol (mGy): 6.61 DLP: (mGycm): 348 Technique: Axial images of the abdomen have been obtained, 3 mm slice thickness Intravenous contrast material has not been administered. Low dose protocols were performed. One or more of the following dose reduction techniques were used; automated exposure control, adjustment of the mA and/or KV according to patient size, use of iterative reconstruction technique. Findings: Bilateral metastatic pulmonary nodules again noted Minimal bilateral pleural fluid Mild bibasilar pneumonia No visualized liver or splenic lesions No pancreatic mass No adrenal mass Perinephric stranding Minimal arterial calcifications, no hydronephrosis Multiple fluid distended small bowel loops with ileostomy Marked decrease in size of abscess in the pelvis, pelvic drainage catheter satisfactory position Presacral soft tissue again noted IMPRESSION: Mild bibasilar pneumonia Marked decrease in size of abscess in the pelvis, pelvic drainage catheter satisfactory position
--- NOTE | 2025-02-10 14:33 | PC.SS ---
Rounding Note: Plan is for patient to obtain abdomen CT. Nephrology is consulting.
[2025-02-10 14:59] LABS: Albumin, Serum 2.8 gm/dL (3.4-4.8); Anion Gap 13 (7-16); BUN/Creatinine Ratio 15 Ratio (12-20); Blood Urea Nitrogen 53 mg/dL (9-23); Calcium 7.4 mg/dL (8.3-10.6); Calcium (Corrected) 8.4 mg/dL (8.5-10.1); Carbon Dioxide 21.4 mMol/L (20.0-31.0); Chloride 106 mMol/L (98-107); Creatinine (Component) 3.6 mg/dL (0.6-1.3); Estimated Creatinine Clearance 9.5 mL/min (>60); Glucose 194 mg/dL (74-106); Osmolality,Calculated 298 (275-295); Phosphorous 5.2 mg/dL (2.4-5.1); Potassium 4.1 mMol/L (3.4-5.1); Sodium 140 mMol/L (136-145); eGFR 12 See Note
[2025-02-10] MEDS: RINGERS LACTATED 1000 ML 1,000 ML 125 ML IV (21:11)
[2025-02-10] MEDS: HEPARIN SOD INJ 5000 UNIT/ML VIAL SC (21:11)
[2025-02-11] VITALS (7 sets, daily range): BP systolic 107–140; BP diastolic 52–96; PULSE 57–72; RESP 12–20; TEMP 36–36.2; O2SAT 95–99
--- NOTE | 2025-02-11 | PC.NURSE ---
Made MD aware of patient continue to have low urine output.
[2025-02-11] MEDS: RINGERS LACTATED 1000 ML 1,000 ML 125 ML IV ×2 (04:20→12:02)
[2025-02-11 06:35] LABS: Basophils # (Auto) 0.1 Thou/mm3 (0.0-0.2); Basophils % (Auto) 0 % (0-2.5); Eosinophils # (Auto) 0.1 Thou/mm3 (0.0-0.5); Eosinophils % (Auto) 0 % (0-10); Hematocrit 23.1 % (36.0-46.0); Immature Granulocytes Auto 0.40 Thou/mm3 (0.00-0.00); Lymphocytes # (Auto) 1.6 Thou/mm3 (1.0-4.8); Lymphocytes % (Auto) 8 % (10-50); Mean Corpuscular HGB Conc 33.3 g/dl (31.0-37.0); Mean Corpuscular Hemoglobin 31.0 pg (25.0-35.0); Mean Corpuscular Volume 93 fL (80-100); Monocytes # (Auto) 0.7 Thou/mm3 (0.0-0.8); Monocytes % (Auto) 4 % (0-12); Neutrophils # (Auto) 17.1 Thou/mm3 (1.8-7.7); Neutrophils % (Auto) 86 % (37-80); Nucleated Red Blood Cell # 0.00 Thou/mm3 (0.00-0.00); Nucleated Red Blood Cell % 0 /100 WBC (0); RDW Standard Deviation 57.2 fL (36.4-46.3); Red Blood Count 2.48 Miln/mm3 (4.00-5.20); White Blood Count 20.0 Thou/mm3 (3.6-11.0)
[2025-02-11 06:45] LABS: Hemoglobin 7.7 g/dL (12.0-16.0); Platelet Count 43 Thou/mm3 (140-440); Slide Review Platelets confirmed
[2025-02-11 07:04] LABS: Alanine Aminotransferase < 7 U/L (10-49); Albumin, Serum 2.6 gm/dL (3.4-4.8); Albumin/Globulin Ratio 1.3 (1.2-2.2); Alkaline Phosphatase 77 U/L (46-116); Anion Gap 14 (7-16); Aspartate Amino Transferase 16 U/L (0-34); BUN/Creatinine Ratio 13 Ratio (12-20); Bilirubin,Total 0.4 mg/dL (0.3-1.2); Blood Urea Nitrogen 49 mg/dL (9-23); Calcium 7.4 mg/dL (8.3-10.6); Calcium (Corrected) 8.5 mg/dL (8.5-10.1); Carbon Dioxide 19.7 mMol/L (20.0-31.0); Chloride 102 mMol/L (98-107); Creatinine (Component) 3.8 mg/dL (0.6-1.3); Estimated Creatinine Clearance 9.0 mL/min (>60); Globulin 2.0 gm/dL (2.3-3.5); Glucose 143 mg/dL (74-106); Magnesium 1.6 mg/dL (1.6-2.6); Osmolality,Calculated 286 (275-295); Phosphorous 4.6 mg/dL (2.4-5.1); Potassium 4.1 mMol/L (3.4-5.1); Sodium 136 mMol/L (136-145); Total Protein 4.6 gm/dL (5.7-8.2); eGFR 11 See Note
--- NOTE | 2025-02-11 08:45 | PC.SS ---
Update: Patient continues to receive IV antibiotics. Pelvic drain in place. Nuclear med scan pending. Dr. Godinez consulting.
[2025-02-11] MEDS: HEPARIN SOD INJ 5000 UNIT/ML VIAL SC (09:00)
[2025-02-11] MEDS: PIPER/TAZO 3.375 GM PREMIX 3.375 GM/50 ML BAG IV ×2 (09:01→20:47)
[2025-02-11] MEDS: GABAPENTIN 300 MG CAPSULE PO ×2 (09:01→20:47)
--- NOTE | 2025-02-11 09:06 | PD.RESPRO ---
Documentation for date of: 02/11/25 Subjective Subjective Interval history: Reason for consult: THOMAS History of present illness: Informant-family Ms. Roa is a 79-year-old female with history of metastatic colon cancer (s/p chemoradiation with CAPOX chemotherapy), colectomy with colostomy in August 2023, CKD stage 3b, insulin-dependent diabetes mellitus with neuropathy, hypertension, hyperlipidemia, and anemia, presenting with a 2-day history of chills, weakness, and subjective fevers. Her daughter reports a Tmax of 100.1 today. The patient denies dysuria, hematuria, urinary frequency, nausea, vomiting, or abdominal pain. Patient has a chronic Gorman catheter in place. Patient was previously admitted for complicated ESBL UTI in December 2024 and was treated with levofloxacin. ED course: Initial vitals include T 99.7, BP 139/79, HR 106, RR 18, 97% on room air. Notable labs include WBC 22.2, hemoglobin 10.3, MCV 91, platelets 133, potassium 3.5, bicarb 17.1, BUN 25, creatinine 1.1, lactic acid 4.8 with repeat 4.0, glucose 186, magnesium 1.3, T. bili 0.5, LFTs mildly elevated with AST 117, ALT 56, alk phos 157, lactate dehydrogenase 344, albumin 3.2, Pro-[place] 47.16. UA showed WBC 68, leuk esterase positive. CT Abdo/pelvis showed bilobed fluid collection in the pelvis 11 cm which projects above the urinary bladder and may represent an abscess versus dilated rectosigmoid colon Past medical history: As stated above. Past surgical history: Colectomy with colostomy (08/2023), cholecystectomy (2019) Allergies: NKDA. Family history: Father diabetes, no family history of cancer Social history: Denies alcohol use, smoking, or illicit drug use. Patient was admitted to telemetry for ESBL bacteremia secondary to UTI. Nephrology consulted for worsening THOMAS on CKD stage 3b since 02/08. 02/10/25: Patient seen and assessed with family at bedside. Telephone seedling sorter used for Mosotho translation. No complaints this morning. Per chart review, NG tube placed and made NPO on 02/07 due to concern for ileus. clamped on 02/09 and plan to remove today per primary team. This morning at bedside, gorman draining light urine but decreased output of 350 cc over past 24 hours (ideally 600cc/24hrs). Colostomy bag at left lower quadrant draining copious amounts of green loose stool. Creatinine 3.5 (from 2.6). Sodium slowly increasing, 145 today. GFR worsening, 13 today. She was just restarted on oral diet yesterday but appears to have poor oral intake. Had CT A/P with contrast twice since admission. Received IVF since 02/08, given another bolus IV LR 1L today. Encouraged oral hydration with water. Continue IV fluids, does not need dialysis at this time. Will re-evaluate urine output and renal panel tomorrow. 02/11/25: Patient seen and assessed at bedside with family. Telephone seedling sorter used for Mosotho translation. No complaints this morning. Received 1.2 L IVF yesterday but urine output continues to be decreased (200 cc overnight via Gorman + ~50cc at bedside). Urine output appears more clear. Noted ~600 cc liquidy stool in colostomy bag. Potassium stable at 4.1. BUN 49, creatinine 3.8. Continue IVF. Bicarb decreased to 19.7 with anion gap elevated at 15.6 with corrected albumin, likely secondary to loose stools. Continue IVF at 80 mL/hr, still no need for dialysis. Exam Vital Signs Temp Pulse Resp BP Pulse Ox O2 Del Method O2 Flow Rate 97.1 F 72 20 118/56 L 99 Room Air 5 02/11/25 07:59 02/11/25 07:59 02/11/25 07:59 02/11/25 07:59 02/11/25 07:59 02/11/25 07:59 02/11/25 07:59 Narrative Exam Physical Exam General: Mosotho speaking, cachetic elderly lady. Awake and in no acute distress. Conversational. HEENT: Normocephalic, atraumatic, mucous membranes dry. Heart: Regular rate and rhythm, normal S1 and S2, no murmurs appreciated. Lungs: Decreased breath sounds in right lower lung, otherwise clear to auscultation in all other lobes. Abdomen: Soft, nondistended, nontender, positive bowel sounds. No guarding or rebound tenderness. Colostomy on left lower abdomen, draining clear yellow fluid. Pelvic percutaneous drainage catheter in place, 150cc bloody fluid at bedside. : Gorman in place. Neurologic: Alert and oriented x3, no gross neurological deficit, and patient able to move all 4 extremities. Extremities: No edema. Skin: No rash or ecchymoses. Objective Labs 02/12/25 05:34 02/12/25 05:34 Labs: Laboratory Results - last 24 hr 02/10/25 02/10/25 02/10/25 05:31 07:12 14:01 WBC RBC Hgb Hct MCV MCH MCHC RDW Std Deviation Plt Count Neut % (Auto) Lymph % (Auto) [place] % (Auto) Eos % (Auto) Baso % (Auto) Neut # (Auto) Lymph # (Auto) [place] # (Auto) Eos # (Auto) Baso # (Auto) Immature Gran # (Auto) Absolute Nucleated RBC Immature Gran % Nucleated RBC % Sodium 140 Potassium 4.1 Chloride 106 Carbon Dioxide 21.4 Anion Gap 13 BUN 53 H Creatinine 3.6 H Estim Creat Clear Calc 9.5 L eGFR 12 L* BUN/Creatinine Ratio 15 Glucose 194 H Calculated Osmolality 298 H Calcium 7.4 L Corrected Calcium 8.4 L Phosphorus 5.2 H Magnesium Total Bilirubin AST ALT Alkaline Phosphatase Total Protein 5.2 L Albumin 2.8 L Globulin 2.2 L Albumin/Globulin Ratio 1.4 Ur Collection Type Clean Catch Urine Color Yellow Urine Clarity Cloudy A Urine pH 6.5 Ur Specific [place] 1.030 Urine Protein 3+ A Urine Glucose (UA) Negative Urine Ketones 1+ A Urine Blood 1+ A Urine Nitrite Negative Urine Bilirubin Negative Urine Urobilinogen (Auto) Negative Ur Leukocyte Esterase Positive Urine RBC 0 Urine WBC 260 H Ur Squamous Epith Cells 2 Amorphous Crystals Present A Urine Bacteria 1+ A Misc Test Result Platelets confirmed 02/11/25 05:44 WBC 20.0 H RBC 2.48 L Hgb 7.7 L Hct 23.1 L MCV 93 MCH 31.0 MCHC 33.3 RDW Std Deviation 57.2 H Plt Count 43 L D Neut % (Auto) 86 H Lymph % (Auto) 8 L [place] % (Auto) 4 Eos % (Auto) 0 Baso % (Auto) 0 Neut # (Auto) 17.1 H Lymph # (Auto) 1.6 [place] # (Auto) 0.7 Eos # (Auto) 0.1 Baso # (Auto) 0.1 Immature Gran # (Auto) 0.40 H Absolute Nucleated RBC 0.00 Immature Gran % 2 H Nucleated RBC % 0 Sodium 136 Potassium 4.1 Chloride 102 Carbon Dioxide 19.7 L Anion Gap 14 BUN 49 H Creatinine 3.8 H Estim Creat Clear Calc 9.0 L eGFR 11 L* BUN/Creatinine Ratio 13 Glucose 143 H D Calculated Osmolality 286 Calcium 7.4 L Corrected Calcium 8.5 Phosphorus 4.6 Magnesium 1.6 Total Bilirubin 0.4 AST 16 ALT < 7 L Alkaline Phosphatase 77 Total Protein 4.6 L Albumin 2.6 L Globulin 2.0 L Albumin/Globulin Ratio 1.3 Ur Collection Type Urine Color Urine Clarity Urine pH Ur Specific [place] Urine Protein Urine Glucose (UA) Urine Ketones Urine Blood Urine Nitrite Urine Bilirubin Urine Urobilinogen (Auto) Ur Leukocyte Esterase Urine RBC Urine WBC Ur Squamous Epith Cells Amorphous Crystals Urine Bacteria Misc Test Result Platelets confirmed ABG Interpretation ABG results: 02/03/25 22:45 VBG pH 7.39 VBG pCO2 31 L VBG pO2 52 VBG Base Excess -5 L Quality Measures Quality Measures VTE prophylaxis and none Advance care planning discussed with:: patient and child Assessment & Plan Assessment Current Active Medications: Generic Name Dose Route Start Last Admin Trade Name Clarissa PRN Reason Stop Dose Admin Acetaminophen 650 mg 02/04/25 00:06 02/05/25 08:11 Acetaminophen 325 Mg Tablet PO 03/06/25 00:05 650 mg Q6HR PRN Administration PAIN (1-3) OR FEVER > 100.4 Dextrose 50 ml 02/04/25 00:12 Dextrose 50%-Water Inj 50 Ml Syringe IV 03/06/25 00:11 Q15MIN PRN BG <50 OR BG <70 & pt unresponsive Dextrose 25 ml 02/04/25 00:12 Dextrose 50%-Water Inj 50 Ml Syringe IV 03/06/25 00:11 Q15MIN PRN BG 50-70 responsive npo pt Gabapentin 300 mg 02/05/25 09:30 02/10/25 21:11 Gabapentin 300 Mg Capsule PO 03/07/25 09:29 300 mg Q12HR MARION Administration Glucagon 1 mg 02/04/25 00:12 Glucagon Inj 1 Mg Vial IM Q15MIN PRN BG <70, and no IV access Heparin Sodium (Porcine) 5,000 unit 02/04/25 21:00 02/10/25 21:11 Heparin Sod Inj 5000 Unit/Ml Vial SC 02/18/25 20:59 5,000 unit Q12HR MARION Administration Hydromorphone HCl 0.5 mg 02/09/25 16:20 02/09/25 16:42 Hydromorphone Inj 2 Mg/Ml Vial IVP 02/14/25 16:19 0.5 mg Q6H PRN Administration PAIN SCALE 7-10 (Severe Piperacillin/Tazobactam/Dextrose 3.375 gm in 50 mls @ 12.5 mls/hr 02/09/25 21:00 02/10/25 21:10 Zosyn IV 02/14/25 20:59 12.5 mls/hr Q12HR MARION Administration Protocol Lactated Ringer's 1,000 mls @ 125 mls/hr 02/10/25 12:30 02/11/25 04:20 Lactated Ringers IV 03/12/25 12:29 125 mls/hr .Q8H MARION Administration Insulin Human Lispro 0 unit 02/10/25 20:45 02/11/25 08:46 Insulin Lispro (Admelog) 1 Unit/0.01 Ml Unit SC 03/12/25 20:44 Not Given ACHS [facility] Protocol Ondansetron HCl 4 mg 02/04/25 00:06 02/09/25 16:02 Ondansetron Inj 2 Mg/Ml Inj 2 Ml IVP 03/06/25 00:05 4 mg Q6H PRN Administration NAUSEA OR VOMITING Protocol Pharmacy Consult 1 each 02/09/25 07:38 Pharmacy Renal Dose Adjustment 1 Ea XX 03/11/25 07:37 PRN PRN CONSULT Polyethylene Glycol 34 gm 02/07/25 14:25 02/10/25 13:40 Polyethylene Glycol 17 Gm Packet PO 03/09/25 14:24 Not Given QDAY [facility] Sennosides 2 tab 02/08/25 09:00 02/10/25 13:40 Senna/Docusate Sod 1 Tab Tablet PO 03/10/25 08:59 Not Given QDAY [facility] Protocol Plan Patient is a 79-year-old female with past medical history of metastatic colon cancer (s/p chemoradiation with CAPOX chemotherapy), colectomy with colostomy in August 2023, CKD stage 3b, insulin-dependent diabetes mellitus with neuropathy, hypertension, hyperlipidemia, and anemia, presenting with a 2-day history of chills, weakness, and subjective fevers. Admitted to telemetry for ESBL bacteremia secondary to UTI. #THOMAS on CKD stage, IIIB - Clinically patient appears rather hypovolemic with colostomy losses and decreased p.o. intake. - Creatinine on admission 1.1 --> 2.0 (02/08) -> 2.6 -> 3.5. Baseline 0.8-1.2. - eGFR on admission >60 --> 51 -> 25 (02/08) -> 18 -> 13. Baseline eGFR 38-46. - NG tube placed on 02/07 due to concern for ileus. Clamped on 02/09, removed 02/10. - Patient also received CT with contrast on 02/03/2025. - Bilateral renal US 02/10 showed no hydronephrosis. Age-related changes noted. - Urine electrolytes: Na 62.8, Cr 81, K 54, Cl 41.8 - FeNa 1.9%, mixed prerenal and intrinsic - Likely multifactorial: prerenal iso NPO status and NG tube suction and intrinsic 2/2 intermittent hypotension and imaging with contrast Plan: - Continue IV fluids at decreased rate of 80 mL/hr. Discussed with family that patient is improving and still does not need dialysis at this time. - Monitor daily renal panel - Strict MARCELO's - Encourage oral hydration. - Avoid nephrotoxic drugs - Renally dose medications #E. 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 Godinez. Radha Clayton DO, PGY-1 Attending Provider Attestation/Addendum Patient currently seen and examined with resident physician Dr. Clayton. Note reviewed, agree with findings and recommendations. Patient currently seen in telemetry. Family at bedside. laundry technician helped with interpretation. Clinically patient looks rather hypovolemic with colostomy losses and decreased p.o. intake. on IV fluids to 125 mL/h. Patient also received CT with contrast on 02/03/2025. Renal ultrasound showed no hydronephrosis. Age-related changes in the renal ultrasound noted. Renal scan was ordered-noted nuclear medicine services down for the whole month. Will monitor urine output, creatinine closely. Potassium seems to be acceptable. Hold off on dialysis. Spoke to primary team. GFR stable. UOP acceptable 2 daughters and son had several questions which were answered to their satisfaction.
[2025-02-11] MEDS: INSULIN LISPRO (AdmeLOG) 1 UNIT/0.01 ML UNIT SC ×2 (11:55→17:23)
[2025-02-11] MEDS: Magnesium Sulfate 2 GM Ivpb 2 GM/50 ML BAG IV (13:00)
--- NOTE | 2025-02-11 13:16 | ESPR_ITS ---
<Statement entered by Otf Peña MD - 02/11/25 14:03> I saw and examined patient personally and supervised PGY 1 resident, Dr. Clements with formulating a management plan. I agree with the documentation with the exceptions as listed below. 79-year-old female with history of metastatic colon cancer (s/p chemoradiation with CAPOX chemotherapy), 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 Patient admitted for sepsis secondary to UTI. Problem list: 1. Acute kidney injury on CKD stage IIIb 2. E. coli bacteremia secondary to 11 cm pelvic abscess 3. UTI 4. Insulin-dependent diabetes mellitus type 2 [5.6%] 5. History of metastatic colon cancer on chemotherapy s/p resection of rectum and anus on 08/2024 6. Primary pretension 7. Hyperlipidemia Urine output decreased to 200 cc in past 24 hours. BUN down trended to 49 from 53, creatinine up trended to 3.8 from 3.6. Continues to be on lactated Ringer's maintenance IVF at 125 cc/h as per nephrology. Pending nuclear medicine renal scan, however no nuclear medicine available until March 2025 at our facility. Continues to be on Zosyn for E. coli bacteremia and pelvic abscess to complete course on 02/14. Patient had 40 cc of serosanguineous drainage from pelvic drain in the past 24 hours. Pending nephrology recommendations. Plan of care discussed with Attending Dr. Melquiades Peña MD PGY 2 Disclaimer: This note was dictated by speech recognition. Minor errors in computer graphic artist may be present due to voice recognition software. Documentation for date of: 02/11/25 Subjective Subjective Interval history: No acute overnight events. Patient seen and examined at bedside with family. Patient has no complaints, denies pain at drainage site or colostomy site. VSS. Notable labs include downtrending WBC, slightly downtrending hemoglobin, downtrending platelets from 58 now 43. Bicarb decreased from 21 now 19 likely secondary to renal dysfunction, creatinine trending 3.8. Magnesium 1.6 repleted with 2 g, FeNa calculated 2.1% likely intrinsic etiology of ATN given clinical picture. Abscess culture grew ESBL. CTAP showed bibasilar pneumonia and decrease in pelvic abscess size. Pending further nephrology recommendations. Will continue maintenance fluids and Zosyn. Exam Vital Signs Temp Pulse Resp BP Pulse Ox O2 Del Method O2 Flow Rate 97.1 F 66 20 118/56 L 99 Room Air 5 02/11/25 07:59 02/11/25 12:00 02/11/25 07:59 02/11/25 07:59 02/11/25 07:59 02/11/25 07:59 02/11/25 07:59 Narrative Exam GENERAL: AOx3, no acute distress, elderly HEENT: mucous membranes dry, bilateral sclera anicteric CARDIOVASCULAR: regular rate and rhythm, S1/S2 present, no murmurs appreciated PULMONARY: clear to auscultation bilaterally, no rales/rhonchi/wheezes ABDOMINAL: soft, non-tender, non-distended, no rebound/guarding, bowel sounds present, pelvic drain catheter draining bloody output, insertion site covered, colostomy bag present with yellow clear fluid EXTREMITIES: no peripheral edema SKIN: warm and dry, intact, no rashes NEURO: CN II-XII grossly intact, no focal deficits, alert, following commands Objective Labs 02/11/25 05:44 02/11/25 05:44 Labs: Laboratory Results - last 24 hr 02/10/25 02/11/25 14:01 05:44 WBC 20.0 H RBC 2.48 L Hgb 7.7 L Hct 23.1 L MCV 93 MCH 31.0 MCHC 33.3 RDW Std Deviation 57.2 H Plt Count 43 L D Neut % (Auto) 86 H Lymph % (Auto) 8 L [place] % (Auto) 4 Eos % (Auto) 0 Baso % (Auto) 0 Neut # (Auto) 17.1 H Lymph # (Auto) 1.6 [place] # (Auto) 0.7 Eos # (Auto) 0.1 Baso # (Auto) 0.1 Immature Gran # (Auto) 0.40 H Absolute Nucleated RBC 0.00 Immature Gran % 2 H Nucleated RBC % 0 Sodium 140 136 Potassium 4.1 4.1 Chloride 106 102 Carbon Dioxide 21.4 19.7 L Anion Gap 13 14 BUN 53 H 49 H Creatinine 3.6 H 3.8 H Estim Creat Clear Calc 9.5 L 9.0 L eGFR 12 L* 11 L* BUN/Creatinine Ratio 15 13 Glucose 194 H 143 H D Calculated Osmolality 298 H 286 Calcium 7.4 L 7.4 L Corrected Calcium 8.4 L 8.5 Phosphorus 5.2 H 4.6 Magnesium 1.6 Total Bilirubin 0.4 AST 16 ALT < 7 L Alkaline Phosphatase 77 Total Protein 4.6 L Albumin 2.8 L 2.6 L Globulin 2.0 L Albumin/Globulin Ratio 1.3 Misc Test Result Platelets confirmed ABG Interpretation ABG results: 02/03/25 22:45 VBG pH 7.39 VBG pCO2 31 L VBG pO2 52 VBG Base Excess -5 L Quality Measures Quality Measures VTE prophylaxis and none Advance care planning discussed with:: patient Assessment & Plan Assessment Current Active Medications: Generic Name Dose Route Start Last Admin Trade Name Freq PRN Reason Stop Dose Admin Acetaminophen 650 mg 02/04/25 00:06 02/05/25 08:11 Acetaminophen 325 Mg Tablet PO 03/06/25 00:05 650 mg Q6HR PRN Administration PAIN (1-3) OR FEVER > 100.4 Dextrose 50 ml 02/04/25 00:12 Dextrose 50%-Water Inj 50 Ml Syringe IV 03/06/25 00:11 Q15MIN PRN BG <50 OR BG <70 & pt unresponsive Dextrose 25 ml 02/04/25 00:12 Dextrose 50%-Water Inj 50 Ml Syringe IV 03/06/25 00:11 Q15MIN PRN BG 50-70 responsive npo pt Gabapentin 300 mg 02/05/25 09:30 02/11/25 09:01 Gabapentin 300 Mg Capsule PO 03/07/25 09:29 300 mg Q12HR [facility] Administration Glucagon 1 mg 02/04/25 00:12 Glucagon Inj 1 Mg Vial IM Q15MIN PRN BG <70, and no IV access Hydromorphone HCl 0.5 mg 02/09/25 16:20 02/09/25 16:42 Hydromorphone Inj 2 Mg/Ml Vial IVP 02/14/25 16:19 0.5 mg Q6H PRN Administration PAIN SCALE 7-10 (Severe Piperacillin/Tazobactam/Dextrose 3.375 gm in 50 mls @ 12.5 mls/hr 02/09/25 21:00 02/11/25 09:01 Zosyn IV 02/14/25 20:59 12.5 mls/hr Q12HR [facility] Administration Protocol Lactated Ringer's 1,000 mls @ 125 mls/hr 02/10/25 12:30 02/11/25 12:02 Lactated Ringers IV 03/12/25 12:29 125 mls/hr .Q8H [facility] Administration Insulin Human Lispro 0 unit 02/10/25 20:45 02/11/25 11:55 Insulin Lispro (Admelog) 1 Unit/0.01 Ml Unit SC 03/12/25 20:44 2 unit ACHS [facility] Administration Protocol Ondansetron HCl 4 mg 02/04/25 00:06 02/09/25 16:02 Ondansetron Inj 2 Mg/Ml Inj 2 Ml IVP 03/06/25 00:05 4 mg Q6H PRN Administration NAUSEA OR VOMITING Protocol Pharmacy Consult 1 each 02/09/25 07:38 Pharmacy Renal Dose Adjustment 1 Ea XX 03/11/25 07:37 PRN PRN CONSULT Polyethylene Glycol 34 gm 02/07/25 14:25 02/11/25 09:05 Polyethylene Glycol 17 Gm Packet PO 03/09/25 14:24 Not Given QDAY [facility] Sennosides 2 tab 02/08/25 09:00 02/11/25 09:06 Senna/Docusate Sod 1 Tab Tablet PO 03/10/25 08:59 Not Given QDAY [facility] Protocol Plan 79-year-old female with history of metastatic colon cancer (s/p chemoradiation with CAPOX chemotherapy), 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 Patient admitted for sepsis secondary to UTI. #Acute Kidney Injury #CKD stage, IIIB #Metabolic alkalosis Baseline eGFR in high 40s. On admission, creatinine 1.1, baseline 1.2-1.3. BNP elevated 471, euvolemic, elevation likely secondary to CKD as kidneys may not clear BNP efficiently versus age-related changes On 02/08, creatinine 2.0, BUN 37, eGFR 25, BUN/creatinine 19. Elevated kidney function tests most likely due to prerenal azotemia in the setting of recent repeated vomiting and n.p.o. status. On PE, patient demonstrating dry oral mucosa, and skin tenting consistent with dehydration s/p Lactated Ringer's IV 1 L at 250 mL/h 02/08 On 02/09, creatinine kept trending up to 2.6, BUN 44, BUN/Cr 17. On 02/10, creatinine elevated to 3.5, BUN 52, and eGFR 13. FeNa 2.1, indicating intrinsic etiology, likely ATN iso severe dehydration and sepsis. Bicarb on 02/11 noted to be 19, decreased from 21 likely / renal dysfunction and inability to clear toxins iso sepsis. Ultrasound of the kidneys showed mild free fluid surrounding the right kidney as well as mild dilatation of the right lower pole calyces, and bilateral renal scar formation. Plan: ? Nephrology, Dr. Godinez, consulted; appreciate recommendations: NM scan unable to be done as services unavailable at this time, continue maintenance fluids of LR at 125 cc/hr ? Monitor renal function daily ? Encourage oral hydration, small sips of Ensure ? Avoid nephrotoxic drugs and renally dose medications #E. coli bacteremia, ESBL #ESBL Pelvic abscess, s/p drainage catheter placement 02/09 #11 cm Pelvic abscess #Urinary tract infection #History of ESBL UTI Sepsis due to UTI with acute sepsis-related organ dysfunction as evidence by lactic acidosis, 4.8 with repeat 4.0, procalcitonin 47.16 2-day history of chills, weakness, and subjective fevers. Her daughter reports a Tmax of 100.1 WBC 22.2 UA showed WBC 68, leuk esterase positive. Chest x-ray shows early bibasilar pneumonia CT Abdo/pelvis showed bilobed fluid collection in the pelvis 11 cm which projects above the urinary bladder and may represent an abscess versus dilated rectosigmoid colon In ED patient received 2 L of IVF, also received ceftriaxone 1 g, ciprofloxacin 400 mg, metronidazole 500 mg. - Operative report from 09/12/2023 for resection of rectal cancer by Dr Mitchell Reports an oncological resection of the rectum and anus to have been performed successfully. Therefore, the fluid filled sacs as found on CT abdomen and pelvis could not be representing a dilated rectosigmoid colon or have an association with those structures. It's more likely that the patient has an 11cm pelvic abscess. - [employer], Dr Velez, was consulted who states that the aformentioned abdominal lesion is unlikely to have a gynecological source. No gynocological intervention is necessary at this time. - General Surgery recommended reaching out to patient's primary surgeon Dr Tien Mitchell at [facility] - Discussed with Dr. Mitchell he recommends that patient undergo IR drainage with drain placement, if patient is stable to be discharged outpatient and follow-up with his office. If patient's condition deteriorates he recommends to inform him and initiate transfer to [facility] - Culture positive for E. coli sensitive to meropenem - Urine cultures drawn on 02/03 during this admission were negative for any growth. Meropenem, which was chosen based on previous urine culture results Pseudomonas resistant to Zosyn, is discontinued and patient is started on Zosyn. - Discontinued meropenem (02/03-02/07) - Abscess culture ESBL, yesterday wound drain output 200 cc, and this morning 40 cc bloody output noted in bag, CTAP showed decreased size of pelvic abscess Plan ?S/P successful CT-guided percutaneous placement of drainage catheter in pelvic abscess and removal of 200 cc grossly purulent fluid. Sent in for culture and sensitivity report. ? Zosyn 02/08 - ?Placed on contact precautions for history of ESBL bacteremia ?Diet to CLD, and carb consistent ? Dilaudid IVP 0.5mg Q6h PRN #Thrombocytopenia Platelets decreasing since admission 133 and now 43. Likely iso sepsis, low suspicion for HIT. No overt signs of bleeding. Plan ? Hold heparin for DVT prophylaxis - CTM CBC #Type 2 diabetes mellitus, insulin-dependent #History of neuropathy Last A1c 5.6 12/04 Takes glargine 10 units subcut every afternoon Plan ? Insulin sliding scale ordered ? 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 Lisa. On chemotherapy treatment. Plan ? Follow-up outpatient #HTN #HLD Lipid panel 11/27: trig 155, cholesterol 90, LDL 43, HDL 16. Takes carvedilol and nifedipine Plan ? Continue to hold antihypertensives #Lactic acidosis, resolved Health Maintenance: Diet: CLD GI prophylaxis: Not indicated DVT prophylaxis: Heparin every 12 hours Antibiotics: Meropenem CODE STATUS: Full Disposition: Telemetry This case was discussed with my attending physician, Dr. Arnett, and senior resident, Dr Peña. Even though this this note was carefully revised there may still be minor errors in computer graphic artist due to voice recognition software. Toma Clayton DO Internal Medicine PGY-1 Attending Provider Attestation/Addendum I have discussed and was present for the essential components of the history, physical examination, diagnosis, and treatment plan with the resident. I agree with the patient's care as documented by the resident and amended herein by me. Kristian Arnett DO. Although this document has been carefully reviewed, there may still be some phonetic and other typographical errors. These errors are purely grammatical due to imperfections in the software program and should not be construed in any way to compromise the substance of the patient's medical care during this visit.
--- NOTE | 2025-02-11 16:22 | PC.SS ---
Patient's wrapper caser from her health insurance is Janina phone# [phone].
[2025-02-11] MEDS: RINGERS LACTATED 1000 ML 1,000 ML 80 ML IV (20:47)
[2025-02-12] VITALS: BP 113/60; PULSE 58; PULSE 67; RESP 14; TEMP 36.1; O2SAT 97
[2025-02-12 04:00] VITALS: BP 135/61; PULSE 60; PULSE 64; RESP 12; TEMP 36.1; O2SAT 96
[2025-02-12 06:00] VITALS: BMI 23.9
[2025-02-12 06:23] LABS: Basophils # (Auto) 0.0 Thou/mm3 (0.0-0.2); Basophils % (Auto) 0 % (0-2.5); Eosinophils # (Auto) 0.1 Thou/mm3 (0.0-0.5); Eosinophils % (Auto) 1 % (0-10); Hematocrit 22.8 % (36.0-46.0); Immature Granulocytes Auto 0.21 Thou/mm3 (0.00-0.00); Lymphocytes # (Auto) 1.4 Thou/mm3 (1.0-4.8); Lymphocytes % (Auto) 11 % (10-50); Mean Corpuscular HGB Conc 34.6 g/dl (31.0-37.0); Mean Corpuscular Hemoglobin 31.2 pg (25.0-35.0); Mean Corpuscular Volume 90 fL (80-100); Monocytes # (Auto) 0.5 Thou/mm3 (0.0-0.8); Monocytes % (Auto) 4 % (0-12); Neutrophils # (Auto) 10.4 Thou/mm3 (1.8-7.7); Neutrophils % (Auto) 82 % (37-80); Nucleated Red Blood Cell # 0.00 Thou/mm3 (0.00-0.00); Nucleated Red Blood Cell % 0 /100 WBC (0); RDW Standard Deviation 53.4 fL (36.4-46.3); Red Blood Count 2.53 Miln/mm3 (4.00-5.20); White Blood Count 12.6 Thou/mm3 (3.6-11.0)
[2025-02-12 06:47] LABS: Alanine Aminotransferase 7 U/L (10-49); Albumin, Serum 2.4 gm/dL (3.4-4.8); Albumin/Globulin Ratio 1.2 (1.2-2.2); Alkaline Phosphatase 73 U/L (46-116); Anion Gap 11 (7-16); Aspartate Amino Transferase 22 U/L (0-34); BUN/Creatinine Ratio 12 Ratio (12-20); Bilirubin,Total 0.5 mg/dL (0.3-1.2); Blood Urea Nitrogen 45 mg/dL (9-23); Calcium 7.3 mg/dL (8.3-10.6); Calcium (Corrected) 8.6 mg/dL (8.5-10.1); Carbon Dioxide 19.1 mMol/L (20.0-31.0); Chloride 99 mMol/L (98-107); Creatinine (Component) 3.8 mg/dL (0.6-1.3); Estimated Creatinine Clearance 9.0 mL/min (>60); Globulin 2.0 gm/dL (2.3-3.5); Glucose 103 mg/dL (74-106); Magnesium 1.9 mg/dL (1.6-2.6); Osmolality,Calculated 270 (275-295); Phosphorous 4.0 mg/dL (2.4-5.1); Potassium 4.1 mMol/L (3.4-5.1); Sodium 129 mMol/L (136-145); Total Protein 4.4 gm/dL (5.7-8.2); eGFR 11 See Note
[2025-02-12 07:54] LABS: Hemoglobin 7.9 g/dL (12.0-16.0); Platelet Count 38 Thou/mm3 (140-440)
[2025-02-12 08:00] VITALS: BP 136/67; PULSE 61; PULSE 62; RESP 19; TEMP 36.1; O2SAT 98
--- NOTE | 2025-02-12 08:46 | PD.RESPRO ---
Documentation for date of: 02/12/25 Subjective Subjective Interval history: History of present illness: Informant-family Ms. Roa is a 79-year-old female with history of metastatic colon cancer (s/p chemoradiation with CAPOX chemotherapy), colectomy with colostomy in August 2023, CKD stage 3b, insulin-dependent diabetes mellitus with neuropathy, hypertension, hyperlipidemia, and anemia, presenting with a 2-day history of chills, weakness, and subjective fevers. Her daughter reports a Tmax of 100.1 today. The patient denies dysuria, hematuria, urinary frequency, nausea, vomiting, or abdominal pain. Patient has a chronic Gorman catheter in place. Patient was previously admitted for complicated ESBL UTI in December 2024 and was treated with levofloxacin. ED course: Initial vitals include T 99.7, BP 139/79, HR 106, RR 18, 97% on room air. Notable labs include WBC 22.2, hemoglobin 10.3, MCV 91, platelets 133, potassium 3.5, bicarb 17.1, BUN 25, creatinine 1.1, lactic acid 4.8 with repeat 4.0, glucose 186, magnesium 1.3, T. bili 0.5, LFTs mildly elevated with AST 117, ALT 56, alk phos 157, lactate dehydrogenase 344, albumin 3.2, Pro-[place] 47.16. UA showed WBC 68, leuk esterase positive. CT Abdo/pelvis showed bilobed fluid collection in the pelvis 11 cm which projects above the urinary bladder and may represent an abscess versus dilated rectosigmoid colon Past medical history: As stated above. Past surgical history: Colectomy with colostomy (08/2023), cholecystectomy (2019) Allergies: NKDA. Family history: Father diabetes, no family history of cancer Social history: Denies alcohol use, smoking, or illicit drug use. Patient was admitted to telemetry for ESBL bacteremia secondary to UTI. Nephrology consulted for worsening THOMAS on CKD stage 3b since 02/08. 02/10/25: Patient seen and assessed with family at bedside. Telephone metal trim erector used for [place]an translation. No complaints this morning. Per chart review, NG tube placed and made NPO on 02/07 due to concern for ileus. clamped on 02/09 and plan to remove today per primary team. This morning at bedside, gorman draining light urine but decreased output of 350 cc over past 24 hours (ideally 600cc/24hrs). Colostomy bag at left lower quadrant draining copious amounts of green loose stool. Creatinine 3.5 (from 2.6). Sodium slowly increasing, 145 today. GFR worsening, 13 today. She was just restarted on oral diet yesterday but appears to have poor oral intake. Had CT A/P with contrast twice since admission. Received IVF since 02/08, given another bolus IV LR 1L today. Encouraged oral hydration with water. Continue IV fluids, does not need dialysis at this time. Will re-evaluate urine output and renal panel tomorrow. 02/11/25: Patient seen and assessed at bedside with family. Telephone metal trim erector used for [place]an translation. No complaints this morning. Received 1.2 L IVF yesterday but urine output continues to be decreased (200 cc overnight via Gorman + ~50cc at bedside). Urine output appears more clear. Noted ~600 cc liquidy stool in colostomy bag. Potassium stable at 4.1. BUN 49, creatinine 3.8. Continue IVF. Bicarb decreased to 19.7 with anion gap elevated at 15.6 with corrected albumin, likely secondary to loose stools. Continue IVF at 80 mL/hr, still no need for dialysis. 02/12/25: Patient seen and assessed at bedside with family. No complaints this morning. Urine output improved (320 cc), continues to appear clear, still no need for dialysis at this time. Sodium 129, chloride 99, discontinued LR and started on NS maintenance fluid. Bicarbonate 19.1, likely GI loss via loose watery stools. Start on Bicitra. Exam Vital Signs Temp Pulse Resp BP Pulse Ox O2 Del Method O2 Flow Rate 97.0 F 61 19 136/67 H 98 Room Air 5 02/12/25 08:00 02/12/25 08:00 02/12/25 08:00 02/12/25 08:00 02/12/25 08:00 02/12/25 04:00 02/11/25 07:59 Narrative Exam Physical Exam General: Venezuelan speaking, cachetic elderly lady. Awake and in no acute distress. Conversational. HEENT: Normocephalic, atraumatic, mucous membranes dry. Heart: Regular rate and rhythm, normal S1 and S2, no murmurs appreciated. Lungs: Clear to auscultation bilaterally. Abdomen: Soft, nondistended, nontender, positive bowel sounds. No guarding or rebound tenderness. Colostomy on left lower abdomen. Pelvic percutaneous drainage catheter in place. : Gorman in place. Neurologic: Alert and oriented x3, no gross neurological deficit, and patient able to move all 4 extremities. Extremities: No edema. Skin: No rash or ecchymoses. Objective Labs 02/12/25 05:34 02/12/25 05:34 Labs: Laboratory Results - last 24 hr 02/12/25 05:34 WBC 12.6 H D RBC 2.53 L Hgb 7.9 L Hct 22.8 L MCV 90 MCH 31.2 MCHC 34.6 RDW Std Deviation 53.4 H Plt Count 38 L Neut % (Auto) 82 H Lymph % (Auto) 11 [place] % (Auto) 4 Eos % (Auto) 1 Baso % (Auto) 0 Neut # (Auto) 10.4 H Lymph # (Auto) 1.4 [place] # (Auto) 0.5 Eos # (Auto) 0.1 Baso # (Auto) 0.0 Immature Gran # (Auto) 0.21 H Absolute Nucleated RBC 0.00 Immature Gran % 2 H Nucleated RBC % 0 Sodium 129 L Potassium 4.1 Chloride 99 Carbon Dioxide 19.1 L Anion Gap 11 BUN 45 H Creatinine 3.8 H Estim Creat Clear Calc 9.0 L eGFR 11 L* BUN/Creatinine Ratio 12 Glucose 103 Calculated Osmolality 270 L Calcium 7.3 L Corrected Calcium 8.6 Phosphorus 4.0 Magnesium 1.9 Total Bilirubin 0.5 AST 22 ALT 7 L Alkaline Phosphatase 73 Total Protein 4.4 L Albumin 2.4 L Globulin 2.0 L Albumin/Globulin Ratio 1.2 ABG Interpretation ABG results: 02/03/25 22:45 VBG pH 7.39 VBG pCO2 31 L VBG pO2 52 VBG Base Excess -5 L Quality Measures Quality Measures VTE prophylaxis and none Advance care planning discussed with:: patient and child Assessment & Plan Assessment Current Active Medications: Generic Name Dose Route Start Last Admin Trade Name Freq PRN Reason Stop Dose Admin Acetaminophen 650 mg 02/04/25 00:06 02/05/25 08:11 Acetaminophen 325 Mg Tablet PO 03/06/25 00:05 650 mg Q6HR PRN Administration PAIN (1-3) OR FEVER > 100.4 Citric Acid/Sodium Citrate 30 ml 02/12/25 09:00 Citric Acid/Sodium Citr 15 Ml Udc (Bicitra) PO 03/14/25 08:59 BID [facility]ION Dextrose 50 ml 02/04/25 00:12 Dextrose 50%-Water Inj 50 Ml Syringe IV 03/06/25 00:11 Q15MIN PRN BG <50 OR BG <70 & pt unresponsive Dextrose 25 ml 02/04/25 00:12 Dextrose 50%-Water Inj 50 Ml Syringe IV 03/06/25 00:11 Q15MIN PRN BG 50-70 responsive npo pt Gabapentin 300 mg 02/05/25 09:30 02/11/25 20:47 Gabapentin 300 Mg Capsule PO 03/07/25 09:29 300 mg Q12HR [facility] Administration Glucagon 1 mg 02/04/25 00:12 Glucagon Inj 1 Mg Vial IM Q15MIN PRN BG <70, and no IV access Hydromorphone HCl 0.5 mg 02/09/25 16:20 02/09/25 16:42 Hydromorphone Inj 2 Mg/Ml Vial IVP 02/14/25 16:19 0.5 mg Q6H PRN Administration PAIN SCALE 7-10 (Severe Piperacillin/Tazobactam/Dextrose 3.375 gm in 50 mls @ 12.5 mls/hr 02/09/25 21:00 02/11/25 20:47 Zosyn IV 02/14/25 20:59 12.5 mls/hr Q12HR [facility] Administration Protocol Sodium Chloride 1,000 mls @ 100 mls/hr 02/12/25 07:51 Ns IV 03/14/25 07:50 Q10H [facility] Insulin Human Lispro 0 unit 02/10/25 20:45 02/12/25 07:21 Insulin Lispro (Admelog) 1 Unit/0.01 Ml Unit SC 03/12/25 20:44 Not Given ACHS [facility] Protocol Ondansetron HCl 4 mg 02/04/25 00:06 02/09/25 16:02 Ondansetron Inj 2 Mg/Ml Inj 2 Ml IVP 03/06/25 00:05 4 mg Q6H PRN Administration NAUSEA OR VOMITING Protocol Pharmacy Consult 1 each 02/09/25 07:38 Pharmacy Renal Dose Adjustment 1 Ea XX 03/11/25 07:37 PRN PRN CONSULT Polyethylene Glycol 34 gm 02/07/25 14:25 02/11/25 09:05 Polyethylene Glycol 17 Gm Packet PO 03/09/25 14:24 Not Given QDAY [facility] Sennosides 2 tab 02/08/25 09:00 02/11/25 09:06 Senna/Docusate Sod 1 Tab Tablet PO 03/10/25 08:59 Not Given QDAY [facility] Protocol Plan Patient is a 79-year-old female with past medical history of metastatic colon cancer (s/p chemoradiation with CAPOX chemotherapy), colectomy with colostomy in August 2023, CKD stage 3b, insulin-dependent diabetes mellitus with neuropathy, hypertension, hyperlipidemia, and anemia, presenting with a 2-day history of chills, weakness, and subjective fevers. Admitted to telemetry for ESBL bacteremia secondary to UTI. #THOMAS on CKD stage, IIIB - Clinically patient appears rather hypovolemic with colostomy losses and decreased p.o. intake. - Creatinine on admission 1.1 --> 2.0 (02/08) -> 2.6 -> 3.5. Baseline 0.8-1.2. - eGFR on admission >60 --> 51 -> 25 (02/08) -> 18 -> 13. Baseline eGFR 38-46. - NG tube placed on 02/07 due to concern for ileus. Clamped on 02/09, removed 02/10. - Patient also received CT with contrast on 02/03/2025. - Bilateral renal US 02/10 showed no hydronephrosis. Age-related changes noted. - Urine electrolytes: Na 62.8, Cr 81, K 54, Cl 41.8 - FeNa 1.9%, mixed prerenal and intrinsic - Likely multifactorial: prerenal iso NPO status and NG tube suction and intrinsic 2/2 intermittent hypotension and imaging with contrast Plan: - Maintaining good urine output, clear. - Discontinued LR, started on NS at 100 mL/hr - Monitor daily renal panel - Strict MARCELO's - Encourage oral hydration. - Avoid nephrotoxic drugs - Renally dose medications #Hyponatremia - Sodium 129, slowly decreasing since 02/10. Chloride also decreasing. - On exam, patient appears hypovolemic, asymptomatic. - Likely secondary to loose watery stools and aggressive LR resuscitation Plan: - Started on NS at 100 mL/hr - Follow up renal panel tomorrow AM - Avoid correcting more than 6-8mEq within 24 hours, goal 137 - If worsens, consider ordering urine electrolytes. #E. 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 Godinez. Radha Clayton DO, PGY-1 Attending Provider Attestation/Addendum Patient currently seen and examined with resident physician Dr. Clayton. Note reviewed, agree with findings and recommendations. Patient currently seen in telemetry. Family at bedside. home health care social worker helped with interpretation. Clinically patient looks rather hypovolemic with colostomy losses and decreased p.o. intake. on IV fluids to 125 mL/h. Patient also received CT with contrast on 02/03/2025. Renal ultrasound showed no hydronephrosis. Age-related changes in the renal ultrasound noted. Renal scan was ordered-noted nuclear medicine services down for the whole month. Will monitor urine output, creatinine closely. Potassium seems to be acceptable. Hold off on dialysis. Spoke to primary team. GFR stable. UOP acceptable daughter had several questions which were answered to her satisfaction.
[2025-02-12] MEDS: PIPER/TAZO 3.375 GM PREMIX 3.375 GM/50 ML BAG IV ×2 (08:51→20:06)
[2025-02-12] MEDS: SODIUM CHLORIDE 0.9% 1000 ML 1,000 ML 100 ML IV ×2 (08:51→19:01)
[2025-02-12] MEDS: CITRIC ACID/SODIUM CITR 15 ML UDC (BICITRA) 30 ML PO ×2 (08:51→20:06)
[2025-02-12] MEDS: POLYETHYLENE GLYCOL 17 GM PACKET 34 GM PO (08:51)
[2025-02-12] MEDS: GABAPENTIN 300 MG CAPSULE PO ×2 (08:52→20:06)
[2025-02-12] MEDS: SENNA/DOCUSATE SOD 1 TAB TABLET 2 TAB PO (08:52)
[2025-02-12 09:18] LABS: Slide Review Platelets confirmed
[2025-02-12 10:14] VITALS: BMI 23.9
[2025-02-12 12:00] VITALS: BP 150/72; PULSE 62; PULSE 73; RESP 18; TEMP 36.1; O2SAT 99
[2025-02-12 13:30] VITALS: BMI 13.0
--- NOTE | 2025-02-12 14:16 | ESPR_ITS ---
<Statement entered by Otf Peña MD - 02/12/25 17:33> I saw and examined patient personally and supervised PGY 1 resident, Dr. Clements with formulating a management plan. I agree with the documentation with the exceptions as listed below. 79-year-old female with history of metastatic colon cancer (s/p chemoradiation with CAPOX chemotherapy), 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 Patient admitted for sepsis secondary to UTI. Problem list: 1. Acute kidney injury on CKD stage IIIb 2. E. coli bacteremia secondary to 11 cm pelvic abscess s/p IR drain placement on 02/09 3. UTI 4. Insulin-dependent diabetes mellitus type 2 [5.6%] 5. History of metastatic colon cancer on chemotherapy s/p resection of rectum and anus on 08/2024 6. Primary pretension 7. Hyperlipidemia Patient had 320 cc of urine output in past 24 hours, improved from 200 cc yesterday. BUN decreased to 45 from 49 and creatinine stable at 3.8. Will continue with Zosyn IV for E. coli bacteremia and UTI. Pelvic drain had only 20 cc of output in past 24 hours. Her outpatient surgeon will follow her with drain in place upon discharge. Today patient's NA decreased to 129, ordered urine electrolytes, urinalysis and urine microscopy to further identify etiology. Nephrology consulted, appreciate recommendations. Plan of care discussed with Attending Dr. Melquiades Peña MD PGY 2 Disclaimer: This note was dictated by speech recognition. Minor errors in inspector eyeglass may be present due to voice recognition software. Documentation for date of: 02/12/25 Subjective Subjective Interval history: No acute overnight events. Patient seen and examined at bedside with family. Patient has no complaints, denies pain at drainage site or colostomy site. VSS. Patient stayed pain-free overnight, eating and tolerating food well. Patient underwent PT stationary exercises yesterday. Colostomy tube with moderate stool in bag. There is less than 5 mL liter of serosanguineous fluid in drainage bag. Patient will have to be discharged on the drain and follow-up outpatient with her surgeon for the removal of the drain. Exam Vital Signs Temp Pulse Resp BP Pulse Ox O2 Del Method O2 Flow Rate 97.0 F 62 18 150/72 H 99 Room Air 5 02/12/25 12:00 02/12/25 12:00 02/12/25 12:00 02/12/25 12:00 02/12/25 12:00 02/12/25 12:00 02/11/25 07:59 Narrative Exam GENERAL: AOx3, no acute distress, elderly HEENT: mucous membranes dry, bilateral sclera anicteric CARDIOVASCULAR: regular rate and rhythm, S1/S2 present, no murmurs appreciated PULMONARY: clear to auscultation bilaterally, no rales/rhonchi/wheezes ABDOMINAL: soft, non-tender, non-distended, no rebound/guarding, bowel sounds present, pelvic drain catheter draining bloody output, insertion site covered, colostomy bag present with yellow clear fluid EXTREMITIES: no peripheral edema SKIN: warm and dry, intact, no rashes NEURO: CN II-XII grossly intact, no focal deficits, alert, following commands Objective Labs 02/13/25 04:10 02/13/25 04:10 Labs: Laboratory Results - last 24 hr 02/12/25 05:34 WBC 12.6 H D RBC 2.53 L Hgb 7.9 L Hct 22.8 L MCV 90 MCH 31.2 MCHC 34.6 RDW Std Deviation 53.4 H Plt Count 38 L Neut % (Auto) 82 H Lymph % (Auto) 11 [place] % (Auto) 4 Eos % (Auto) 1 Baso % (Auto) 0 Neut # (Auto) 10.4 H Lymph # (Auto) 1.4 [place] # (Auto) 0.5 Eos # (Auto) 0.1 Baso # (Auto) 0.0 Immature Gran # (Auto) 0.21 H Absolute Nucleated RBC 0.00 Immature Gran % 2 H Nucleated RBC % 0 Sodium 129 L Potassium 4.1 Chloride 99 Carbon Dioxide 19.1 L Anion Gap 11 BUN 45 H Creatinine 3.8 H Estim Creat Clear Calc 9.0 L eGFR 11 L* BUN/Creatinine Ratio 12 Glucose 103 Calculated Osmolality 270 L Calcium 7.3 L Corrected Calcium 8.6 Phosphorus 4.0 Magnesium 1.9 Total Bilirubin 0.5 AST 22 ALT 7 L Alkaline Phosphatase 73 Total Protein 4.4 L Albumin 2.4 L Globulin 2.0 L Albumin/Globulin Ratio 1.2 Misc Test Result Platelets confirmed ABG Interpretation ABG results: 02/03/25 22:45 VBG pH 7.39 VBG pCO2 31 L VBG pO2 52 VBG Base Excess -5 L Quality Measures Quality Measures VTE prophylaxis and none Advance care planning discussed with:: patient Assessment & Plan Assessment Current Active Medications: Generic Name Dose Route Start Last Admin Trade Name Freq PRN Reason Stop Dose Admin Acetaminophen 650 mg 02/04/25 00:06 02/05/25 08:11 Acetaminophen 325 Mg Tablet PO 03/06/25 00:05 650 mg Q6HR PRN Administration PAIN (1-3) OR FEVER > 100.4 Citric Acid/Sodium Citrate 30 ml 02/12/25 09:00 02/12/25 08:51 Citric Acid/Sodium Citr 15 Ml Udc (Bicitra) PO 03/14/25 08:59 30 ml BID MARION Administration Dextrose 50 ml 02/04/25 00:12 Dextrose 50%-Water Inj 50 Ml Syringe IV 03/06/25 00:11 Q15MIN PRN BG <50 OR BG <70 & pt unresponsive Dextrose 25 ml 02/04/25 00:12 Dextrose 50%-Water Inj 50 Ml Syringe IV 03/06/25 00:11 Q15MIN PRN BG 50-70 responsive npo pt Gabapentin 300 mg 02/05/25 09:30 02/12/25 08:52 Gabapentin 300 Mg Capsule PO 03/07/25 09:29 300 mg Q12HR MARION Administration Glucagon 1 mg 02/04/25 00:12 Glucagon Inj 1 Mg Vial IM Q15MIN PRN BG <70, and no IV access Hydromorphone HCl 0.5 mg 02/09/25 16:20 02/09/25 16:42 Hydromorphone Inj 2 Mg/Ml Vial IVP 02/14/25 16:19 0.5 mg Q6H PRN Administration PAIN SCALE 7-10 (Severe Piperacillin/Tazobactam/Dextrose 3.375 gm in 50 mls @ 12.5 mls/hr 02/09/25 21:00 02/12/25 08:51 Zosyn IV 02/14/25 20:59 12.5 mls/hr Q12HR MARION Administration Protocol Sodium Chloride 1,000 mls @ 100 mls/hr 02/12/25 07:51 02/12/25 08:51 Ns IV 03/14/25 07:50 100 mls/hr Q10H MARION Administration Insulin Human Lispro 0 unit 02/10/25 20:45 02/12/25 11:36 Insulin Lispro (Admelog) 1 Unit/0.01 Ml Unit SC 03/12/25 20:44 Not Given ACHS MARION Protocol Ondansetron HCl 4 mg 02/04/25 00:06 02/09/25 16:02 Ondansetron Inj 2 Mg/Ml Inj 2 Ml IVP 03/06/25 00:05 4 mg Q6H PRN Administration NAUSEA OR VOMITING Protocol Pharmacy Consult 1 each 02/09/25 07:38 Pharmacy Renal Dose Adjustment 1 Ea XX 03/11/25 07:37 PRN PRN CONSULT Polyethylene Glycol 34 gm 02/07/25 14:25 02/12/25 08:51 Polyethylene Glycol 17 Gm Packet PO 03/09/25 14:24 34 gm QDAY MARION Administration Sennosides 2 tab 02/08/25 09:00 02/12/25 08:52 Senna/Docusate Sod 1 Tab Tablet PO 03/10/25 08:59 2 tab QDAY MARION Administration Protocol Plan 79-year-old female with history of metastatic colon cancer (s/p chemoradiation with CAPOX chemotherapy), 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 Patient admitted for sepsis secondary to UTI. #Acute Kidney Injury #CKD stage, IIIB #Metabolic acidosis Baseline eGFR in high 40s. On admission, creatinine 1.1, baseline 1.2-1.3. BNP elevated 471, euvolemic, elevation likely secondary to CKD as kidneys may not clear BNP efficiently versus age-related changes On 02/08, creatinine 2.0, BUN 37, eGFR 25, BUN/creatinine 19. Elevated kidney function tests most likely due to prerenal azotemia in the setting of recent repeated vomiting and n.p.o. status. On PE, patient demonstrating dry oral mucosa, and skin tenting consistent with dehydration s/p Lactated Ringer's IV 1 L at 250 mL/h 02/08 On 02/09, creatinine kept trending up to 2.6, BUN 44, BUN/Cr 17. On 02/10, creatinine elevated to 3.5, BUN 52, and eGFR 13. FeNa 2.1, indicating intrinsic etiology, likely ATN iso severe dehydration and sepsis. Bicarb on 02/11 noted to be 19, decreased from 21 likely 2/2 renal dysfunction and inability to clear toxins iso sepsis. +Ultrasound of the kidneys showed mild free fluid surrounding the right kidney as well as mild dilatation of the right lower pole calyces, and bilateral renal scar formation. No hydronephrosis present. +Patient likely dehydrated from colostomy losses, and decreased p.o. intake with previous history of nausea and recurrent vomiting. Plan: ? Nephrology, Dr. Godinez, consulted; appreciate recommendations: NM scan unable to be done as services unavailable at this time. - Discontinued LR, started on NS at 100 mL/hr -Patient started on Bicitra for low bicarb. -Ordered repeat UA and urine lytes ? Monitor renal function daily ? Encourage oral hydration, small sips of Ensure ? Avoid nephrotoxic drugs and renally dose medications #Hyponatremia Sodium 129, likely secondary to loose watery stools and aggressive LR resuscitation Plan -Nephrology following; appreciate recommendations - started on NS at 100 mL /hour - Avoid correcting more than 6-8mEq within 24 hours, goal 137 #E. coli bacteremia, ESBL #ESBL Pelvic abscess, s/p drainage catheter placement 02/09 #11 cm Pelvic abscess #Urinary tract infection #History of ESBL UTI Sepsis due to UTI with acute sepsis-related organ dysfunction as evidence by lactic acidosis, 4.8 with repeat 4.0, procalcitonin 47.16 2-day history of chills, weakness, and subjective fevers. Her daughter reports a Tmax of 100.1 WBC 22.2 UA showed WBC 68, leuk esterase positive. Chest x-ray shows early bibasilar pneumonia CT Abdo/pelvis showed bilobed fluid collection in the pelvis 11 cm which projects above the urinary bladder and may represent an abscess versus dilated rectosigmoid colon In ED patient received 2 L of IVF, also received ceftriaxone 1 g, ciprofloxacin 400 mg, metronidazole 500 mg. - Operative report from 09/12/2023 for resection of rectal cancer by Dr Mitchell Reports an oncological resection of the rectum and anus to have been performed successfully. Therefore, the fluid filled sacs as found on CT abdomen and pelvis could not be representing a dilated rectosigmoid colon or have an association with those structures. It's more likely that the patient has an 11cm pelvic abscess. - BUSINESS MANAGEMENT SPECIALIST, Dr Velez, was consulted who states that the aformentioned abdominal lesion is unlikely to have a gynecological source. No gynocological intervention is necessary at this time. - General Surgery recommended reaching out to patient's primary surgeon Dr Tien Mitchell at [facility] - Discussed with Dr. Mitchell he recommends that patient undergo IR drainage with drain placement, if patient is stable to be discharged outpatient and follow-up with his office. If patient's condition deteriorates he recommends to inform him and initiate transfer to [facility] - Culture positive for E. coli sensitive to meropenem - Urine cultures drawn on 02/03 during this admission were negative for any growth. Meropenem, which was chosen based on previous urine culture results Pseudomonas resistant to Zosyn, is discontinued and patient is started on Zosyn. - Discontinued meropenem (02/03-02/07) - Abscess culture ESBL, yesterday wound drain output 200 cc, and this morning 40 cc bloody output noted in bag, CTAP showed decreased size of pelvic abscess Plan ?S/P successful CT-guided percutaneous placement of drainage catheter in pelvic abscess and removal of 200 cc grossly purulent fluid. Sent in for culture and sensitivity report. ? Zosyn 02/08 - ?Placed on contact precautions for history of ESBL bacteremia ?Diet to CLD, and carb consistent ? Dilaudid IVP 0.5mg Q6h PRN #Thrombocytopenia Platelets decreasing since admission 133 and now 43. Likely iso sepsis, low suspicion for HIT. No overt signs of bleeding. Plan ? Hold heparin for DVT prophylaxis - CTM CBC #Type 2 diabetes mellitus, insulin-dependent #History of neuropathy Last A1c 5.6 12/04 Takes glargine 10 units subcut every afternoon Plan ? Insulin sliding scale ordered ? 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 Lisa. On chemotherapy treatment. Plan ? Follow-up outpatient #HTN #HLD Lipid panel 11/27: trig 155, cholesterol 90, LDL 43, HDL 16. Takes carvedilol and nifedipine Plan ? Continue to hold antihypertensives #Lactic acidosis, resolved Health Maintenance: Diet: CLD GI prophylaxis: Not indicated DVT prophylaxis: Heparin every 12 hours Antibiotics: Meropenem CODE STATUS: Full Disposition: Telemetry This case was discussed with my attending physician, Dr. Arnett, and senior resident, Dr Peña. Even though this this note was carefully revised there may still be minor errors in inspector eyeglass due to voice recognition software. Toma Clayton DO Internal Medicine PGY-1 Attending Provider Attestation/Addendum I have discussed and was present for the essential components of the history, physical examination, diagnosis, and treatment plan with the resident. I agree with the patient's care as documented by the resident and amended herein by me. Kristian Arnett DO. Although this document has been carefully reviewed, there may still be some phonetic and other typographical errors. These errors are purely grammatical due to imperfections in the software program and should not be construed in any way to compromise the substance of the patient's medical care during this visit.
[2025-02-12 15:39] LABS: Path Review Blood Smear Sent to Pathologist
[2025-02-12 16:00] VITALS: BP 138/65; PULSE 61; PULSE 77; RESP 17; TEMP 36.1; O2SAT 97
[2025-02-12] MEDS: HYDROmorphone INJ 2 MG/ML VIAL 0.5 MG IVP (18:40)
[2025-02-12 18:43] LABS: Collection Type, Urine Catheter; Squamous Epithelial Cell,Urine 0 /hpf (0-5)
[2025-02-12 18:56] LABS: Chloride,Urine Random 49.4 mMol/L (55.0-125.0); Potassium,Urine Random < 10 mMol/L (12-62); Sodium,Urine Random 60.9 mMol/L (20.0-110.0)
[2025-02-12 19:01] LABS: Bilirubin,Urine Negative (Negative); Blood,Urine Trace (Negative); Clarity,Urine Clear (Clear/Hazy); Color,Urine Colorless (Lt Yel-Yel); Glucose, Urine Negative (Negative); Ketones,Urine Negative (Negative); Leukocyte Esterase,Urine Positive (Negative); Nitrite,Urine Negative (Negative); PH,Urine 7.5 (5.0-7.0); Protein,Urine Trace (Neg - Trace); RBC,Urine 12 /hpf (0-3); Specific Gravity,Urine 1.006 (1.001-1.035); Urobilinogen,Urine Negative mg/dL (0.0-1.0); WBC,Urine 101 /hpf (0-5)
[2025-02-12 20:00] VITALS: BP 126/64; PULSE 72; PULSE 84; RESP 21; TEMP 36.9; O2SAT 97
[2025-02-13] VITALS (7 sets, daily range): BP systolic 136–150; BP diastolic 58–86; PULSE 60–90; RESP 12–23; TEMP 36.1–36.8; O2SAT 98–99; BMI 24.0
[2025-02-13] MEDS: SODIUM CHLORIDE 0.9% 1000 ML 1,000 ML 100 ML IV ×2 (04:56→17:11)
[2025-02-13 05:17] LABS: Basophils # (Auto) 0.0 Thou/mm3 (0.0-0.2); Basophils % (Auto) 0 % (0-2.5); Eosinophils # (Auto) 0.0 Thou/mm3 (0.0-0.5); Eosinophils % (Auto) 1 % (0-10); Hematocrit 23.8 % (36.0-46.0); Immature Granulocytes Auto 0.03 Thou/mm3 (0.00-0.00); Lymphocytes # (Auto) 1.3 Thou/mm3 (1.0-4.8); Lymphocytes % (Auto) 17 % (10-50); Mean Corpuscular HGB Conc 34.9 g/dl (31.0-37.0); Mean Corpuscular Hemoglobin 31.2 pg (25.0-35.0); Mean Corpuscular Volume 90 fL (80-100); Monocytes # (Auto) 0.5 Thou/mm3 (0.0-0.8); Monocytes % (Auto) 7 % (0-12); Neutrophils # (Auto) 5.4 Thou/mm3 (1.8-7.7); Neutrophils % (Auto) 74 % (37-80); Nucleated Red Blood Cell # 0.00 Thou/mm3 (0.00-0.00); Nucleated Red Blood Cell % 0 /100 WBC (0); RDW Standard Deviation 52.4 fL (36.4-46.3); Red Blood Count 2.66 Miln/mm3 (4.00-5.20); White Blood Count 7.3 Thou/mm3 (3.6-11.0)
[2025-02-13 05:29] LABS: Hemoglobin 8.3 g/dL (12.0-16.0); Platelet Count 54 Thou/mm3 (140-440)
[2025-02-13 05:52] LABS: Alanine Aminotransferase 9 U/L (10-49); Albumin, Serum 2.5 gm/dL (3.4-4.8); Albumin/Globulin Ratio 1.3 (1.2-2.2); Alkaline Phosphatase 78 U/L (46-116); Anion Gap 12 (7-16); Aspartate Amino Transferase 26 U/L (0-34); BUN/Creatinine Ratio 12 Ratio (12-20); Bilirubin,Total 0.5 mg/dL (0.3-1.2); Blood Urea Nitrogen 44 mg/dL (9-23); Calcium 7.2 mg/dL (8.3-10.6); Calcium (Corrected) 8.4 mg/dL (8.5-10.1); Carbon Dioxide 20.5 mMol/L (20.0-31.0); Chloride 98 mMol/L (98-107); Creatinine (Component) 3.8 mg/dL (0.6-1.3); Estimated Creatinine Clearance 9.0 mL/min (>60); Globulin 2.0 gm/dL (2.3-3.5); Glucose 81 mg/dL (74-106); Magnesium 1.8 mg/dL (1.6-2.6); Osmolality,Calculated 271 (275-295); Phosphorous 3.9 mg/dL (2.4-5.1); Potassium 4.0 mMol/L (3.4-5.1); Sodium 130 mMol/L (136-145); Total Protein 4.5 gm/dL (5.7-8.2); eGFR 11 See Note
[2025-02-13 06:21] LABS: Slide Review Platelets confirmed
[2025-02-13] MEDS: CITRIC ACID/SODIUM CITR 15 ML UDC (BICITRA) 30 ML PO ×2 (09:22→20:35)
[2025-02-13] MEDS: GABAPENTIN 300 MG CAPSULE PO ×2 (09:22→20:35)
[2025-02-13] MEDS: SENNA/DOCUSATE SOD 1 TAB TABLET 2 TAB PO (09:22)
[2025-02-13] MEDS: CALCIUM CARBONATE 600 MG TABLET PO (09:22)
[2025-02-13] MEDS: PIPER/TAZO 3.375 GM PREMIX 3.375 GM/50 ML BAG IV ×2 (09:23→20:35)
[2025-02-13] MEDS: POLYETHYLENE GLYCOL 17 GM PACKET 34 GM PO (09:24)
--- NOTE | 2025-02-13 09:46 | PD.RESPRO ---
Documentation for date of: 02/13/25 Subjective Subjective Interval history: History of present illness: Informant-family Ms. Roa is a 79-year-old female with history of metastatic colon cancer (s/p chemoradiation with CAPOX chemotherapy), colectomy with colostomy in August 2023, CKD stage 3b, insulin-dependent diabetes mellitus with neuropathy, hypertension, hyperlipidemia, and anemia, presenting with a 2-day history of chills, weakness, and subjective fevers. Her daughter reports a Tmax of 100.1 today. The patient denies dysuria, hematuria, urinary frequency, nausea, vomiting, or abdominal pain. Patient has a chronic Gorman catheter in place. Patient was previously admitted for complicated ESBL UTI in December 2024 and was treated with levofloxacin. ED course: Initial vitals include T 99.7, BP 139/79, HR 106, RR 18, 97% on room air. Notable labs include WBC 22.2, hemoglobin 10.3, MCV 91, platelets 133, potassium 3.5, bicarb 17.1, BUN 25, creatinine 1.1, lactic acid 4.8 with repeat 4.0, glucose 186, magnesium 1.3, T. bili 0.5, LFTs mildly elevated with AST 117, ALT 56, alk phos 157, lactate dehydrogenase 344, albumin 3.2, Pro-[place]win 47.16. UA showed WBC 68, leuk esterase positive. CT Abdo/pelvis showed bilobed fluid collection in the pelvis 11 cm which projects above the urinary bladder and may represent an abscess versus dilated rectosigmoid colon Past medical history: As stated above. Past surgical history: Colectomy with colostomy (08/2023), cholecystectomy (2019) Allergies: NKDA. Family history: Father diabetes, no family history of cancer Social history: Denies alcohol use, smoking, or illicit drug use. Patient was admitted to telemetry for ESBL bacteremia secondary to UTI. Nephrology consulted for worsening THOMAS on CKD stage 3b since 02/08. 02/10/25: Patient seen and assessed with family at bedside. Telephone financial services manager used for [place] translation. No complaints this morning. Per chart review, NG tube placed and made NPO on 02/07 due to concern for ileus. clamped on 02/09 and plan to remove today per primary team. This morning at bedside, gorman draining light urine but decreased output of 350 cc over past 24 hours (ideally 600cc/24hrs). Colostomy bag at left lower quadrant draining copious amounts of green loose stool. Creatinine 3.5 (from 2.6). Sodium slowly increasing, 145 today. GFR worsening, 13 today. She was just restarted on oral diet yesterday but appears to have poor oral intake. Had CT A/P with contrast twice since admission. Received IVF since 02/08, given another bolus IV LR 1L today. Encouraged oral hydration with water. Continue IV fluids, does not need dialysis at this time. Will re-evaluate urine output and renal panel tomorrow. 02/11/25: Patient seen and assessed at bedside with family. Telephone financial services manager used for [place] translation. No complaints this morning. Received 1.2 L IVF yesterday but urine output continues to be decreased (200 cc overnight via Gorman + ~50cc at bedside). Urine output appears more clear. Noted ~600 cc liquidy stool in colostomy bag. Potassium stable at 4.1. BUN 49, creatinine 3.8. Continue IVF. Bicarb decreased to 19.7 with anion gap elevated at 15.6 with corrected albumin, likely secondary to loose stools. Continue IVF at 80 mL/hr, still no need for dialysis. 02/12/25: Patient seen and assessed at bedside with family. No complaints this morning. Urine output improved (320 cc), continues to appear clear, still no need for dialysis at this time. Sodium 129, chloride 99, discontinued LR and started on NS maintenance fluid. Bicarbonate 19.1, likely GI loss via loose watery stools. Start on Bicitra. 02/13/25: Patient seen and assessed at bedside with family present. No complaints this morning. Urine pale and clear, output continues to improve (1.2 L overnight). Sodium 130, bicarb improved to 20.5, Cr stable at 3.8. Patient is medically stable for discharge from renal standpoint, send home with sodium bicarb 325mg BID. Follow up in clinic in 1 week with renal panel. Exam Vital Signs Temp Pulse Resp BP Pulse Ox O2 Del Method O2 Flow Rate 98.2 F 68 16 136/74 H 98 Room Air 5 02/13/25 07:41 02/13/25 07:41 02/13/25 07:41 02/13/25 07:41 02/13/25 07:41 02/13/25 07:41 02/11/25 07:59 Narrative Exam Physical Exam General: [place]ambican speaking, cachetic elderly lady. Awake and in no acute distress. Conversational. HEENT: Normocephalic, atraumatic, mucous membranes dry. Heart: Regular rate and rhythm, normal S1 and S2, no murmurs appreciated. Lungs: Clear to auscultation bilaterally. Abdomen: Soft, nondistended, nontender, positive bowel sounds. No guarding or rebound tenderness. Colostomy on left lower abdomen. Pelvic percutaneous drainage catheter in place. Neurologic: Alert and oriented x3, no gross neurological deficit, and patient able to move all 4 extremities. Extremities: No edema. Skin: No rash or ecchymoses. Objective Labs 02/13/25 04:10 02/13/25 04:10 Labs: Laboratory Results - last 24 hr 02/12/25 02/12/25 02/13/25 05:34 18:30 04:10 WBC 7.3 D RBC 2.66 L Hgb 8.3 L Hct 23.8 L MCV 90 MCH 31.2 MCHC 34.9 RDW Std Deviation 52.4 H Plt Count 54 L D Neut % (Auto) 74 Lymph % (Auto) 17 Walker % (Auto) 7 Eos % (Auto) 1 Baso % (Auto) 0 Neut # (Auto) 5.4 Lymph # (Auto) 1.3 Walker # (Auto) 0.5 Eos # (Auto) 0.0 Baso # (Auto) 0.0 Immature Gran # (Auto) 0.03 H Absolute Nucleated RBC 0.00 Immature Gran % 0 Nucleated RBC % 0 Smear Path Review Sent to Pathologist Sodium 130 L Potassium 4.0 Chloride 98 Carbon Dioxide 20.5 Anion Gap 12 BUN 44 H Creatinine 3.8 H Estim Creat Clear Calc 9.0 L eGFR 11 L* BUN/Creatinine Ratio 12 Glucose 81 Calculated Osmolality 271 L Calcium 7.2 L Corrected Calcium 8.4 L Phosphorus 3.9 Magnesium 1.8 Total Bilirubin 0.5 AST 26 ALT 9 L Alkaline Phosphatase 78 Total Protein 4.5 L Albumin 2.5 L Globulin 2.0 L Albumin/Globulin Ratio 1.3 Ur Collection Type Catheter Urine Color Colorless A Urine Clarity Clear Urine pH 7.5 H Ur Specific [place] 1.006 Urine Protein Trace Urine Glucose (UA) Negative Urine Ketones Negative Urine Blood Trace Urine Nitrite Negative Urine Bilirubin Negative Urine Urobilinogen (Auto) Negative Ur Leukocyte Esterase Positive Urine RBC 12 H Urine WBC 101 H Ur Squamous Epith Cells 0 Urine Bacteria None Ur Random Sodium 60.9 Ur Random Potassium < 10 L Ur Random Chloride 49.4 L Misc Test Result Platelets confirmed ABG Interpretation ABG results: 02/03/25 22:45 VBG pH 7.39 VBG pCO2 31 L VBG pO2 52 VBG Base Excess -5 L Quality Measures Quality Measures VTE prophylaxis and none Advance care planning discussed with:: patient and child Assessment & Plan Assessment Current Active Medications: Generic Name Dose Route Start Last Admin Trade Name Freq PRN Reason Stop Dose Admin Acetaminophen 650 mg 02/04/25 00:06 02/05/25 08:11 Acetaminophen 325 Mg Tablet PO 03/06/25 00:05 650 mg Q6HR PRN Administration PAIN (1-3) OR FEVER > 100.4 Citric Acid/Sodium Citrate 30 ml 02/12/25 09:00 02/13/25 09:22 Citric Acid/Sodium Citr 15 Ml Udc (Bicitra) PO 03/14/25 08:59 30 ml BID MARION Administration Dextrose 50 ml 02/04/25 00:12 Dextrose 50%-Water Inj 50 Ml Syringe IV 03/06/25 00:11 Q15MIN PRN BG <50 OR BG <70 & pt unresponsive Dextrose 25 ml 02/04/25 00:12 Dextrose 50%-Water Inj 50 Ml Syringe IV 03/06/25 00:11 Q15MIN PRN BG 50-70 responsive npo pt Gabapentin 300 mg 02/05/25 09:30 02/13/25 09:22 Gabapentin 300 Mg Capsule PO 03/07/25 09:29 300 mg Q12HR MARION Administration Glucagon 1 mg 02/04/25 00:12 Glucagon Inj 1 Mg Vial IM Q15MIN PRN BG <70, and no IV access Hydromorphone HCl 0.5 mg 02/09/25 16:20 02/09/25 16:42 Hydromorphone Inj 2 Mg/Ml Vial IVP 02/14/25 16:19 0.5 mg Q6H PRN Administration PAIN SCALE 7-10 (Severe Piperacillin/Tazobactam/Dextrose 3.375 gm in 50 mls @ 12.5 mls/hr 02/09/25 21:00 02/13/25 09:23 Zosyn IV 02/14/25 20:59 12.5 mls/hr Q12HR MARION Administration Protocol Sodium Chloride 1,000 mls @ 100 mls/hr 02/12/25 07:51 02/13/25 04:56 Ns IV 03/14/25 07:50 100 mls/hr Q10H MARION Administration Insulin Human Lispro 0 unit 02/10/25 20:45 02/13/25 07:49 Insulin Lispro (Admelog) 1 Unit/0.01 Ml Unit SC 03/12/25 20:44 Not Given ACHS MARION Protocol Ondansetron HCl 4 mg 02/04/25 00:06 02/09/25 16:02 Ondansetron Inj 2 Mg/Ml Inj 2 Ml IVP 03/06/25 00:05 4 mg Q6H PRN Administration NAUSEA OR VOMITING Protocol Pharmacy Consult 1 each 02/09/25 07:38 Pharmacy Renal Dose Adjustment 1 Ea XX 03/11/25 07:37 PRN PRN CONSULT Polyethylene Glycol 34 gm 02/07/25 14:25 02/13/25 09:24 Polyethylene Glycol 17 Gm Packet PO 03/09/25 14:24 34 gm QDAY MARION Administration Sennosides 2 tab 02/08/25 09:00 02/13/25 09:22 Senna/Docusate Sod 1 Tab Tablet PO 03/10/25 08:59 2 tab QDAY MARION Administration Protocol Plan Patient is a 79-year-old female with past medical history of metastatic colon cancer (s/p chemoradiation with CAPOX chemotherapy), colectomy with colostomy in August 2023, CKD stage 3b, insulin-dependent diabetes mellitus with neuropathy, hypertension, hyperlipidemia, and anemia, presenting with a 2-day history of chills, weakness, and subjective fevers. Admitted to telemetry for ESBL bacteremia secondary to UTI. #THOMAS on CKD stage, IIIB #ATN - Clinically patient appears rather hypovolemic with colostomy losses and decreased p.o. intake. - Creatinine on admission 1.1 --> 2.0 (02/08) -> 2.6 -> 3.5. Baseline 0.8-1.2. - eGFR on admission >60 --> 51 -> 25 (02/08) -> 18 -> 13. Baseline eGFR 38-46. - NG tube placed on 11/29 due to concern for ileus. Clamped on 02/09, removed 02/10. - Patient also received CT with contrast on 02/03/2025. - Bilateral renal US 02/10 showed no hydronephrosis. Age-related changes noted. - FeNa 1.9%, mixed prerenal and intrinsic - Likely ATN iso dehydration from NPO and NG suctioning, as well as imaging with contrast Plan: - Continue NS at 100 mL/hr - Monitor daily renal panel - Strict MARCELO's - Encourage oral hydration. - Avoid nephrotoxic drugs - Renally dose medications - Plan for dialysis on Sunday if no improvement in creatinine/GFR. No need for emergency dialysis Today #NAGMA 04/13 diarrhea (improving) #RTA, likely type 1 - Bicarb 19.1 on 02/12, slowly decreasing since 02/09 due to diarrhea. Improved to 20.5 today. - Serum anion gap with albumin correction 14.9 - Urine electrolytes: Na 62.8, Cr 81, K 54, Cl 41.8; pH 6.5 (02/10/25) - Repeat ulytes: Na 60.9, K <10, and Cl 49.4; pH 7.5 (after starting on bicitra) - Urine anion gap 20.5 suggesting possible component of RTA as well, likely type 1 based on urine pH Plan: - Bicitra 30 ml BID #Hyponatremia (improving) - Sodium 129, slowly decreasing since 02/10. Chloride also decreasing. - On exam, patient appears hypovolemic, asymptomatic. - Likely secondary to loose watery stools and aggressive LR resuscitation Plan: - NS at 100 mL/hr - Avoid correcting more than 6-8mEq within 24 hours, goal 137 #E. 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 Godinez. Radha Clayton DO, PGY-1 Attending Provider Attestation/Addendum Patient currently seen and examined with resident physician Dr. Clayton. Note reviewed, agree with findings and recommendations. Patient currently seen in telemetry. daughter at bedside. freight claim investigator helped with interpretation. Clinically patient looks rather euvolemic . Has colostomy losses. Was given fluids for 3 days. Creatinine stabilized at 3.8. Urine seems to be very clear and had 1.2 L of urinary output. Suspect patient currently in ischemic ATN and hopefully will recover in the next 1 to 2 weeks. Patient also received CT with contrast on 02/03/2025. Renal ultrasound showed no hydronephrosis. Age-related changes in the renal ultrasound noted. Renal scan was ordered-noted nuclear medicine services down for the whole month. Will monitor urine output, creatinine closely. Potassium seems to be acceptable. Hold off on dialysis. GFR 11- Spoke to primary team/Dr. Arnett-Will Keep her over the weekend and if there is no improvement in renal function plan for dialysis on Sunday. GFR stable. UOP acceptable daughter had several questions which were answered to her satisfaction.
[2025-02-13] MEDS: ALBUMIN HUMAN-KJDA 25% IVPB 25 GM/100 ML BTL IV (12:32)
--- NOTE | 2025-02-13 17:25 | ESPR_ITS ---
<Statement entered by Otf Peña MD - 02/13/25 22:48> I saw and examined patient personally and supervised PGY 1 resident, Dr. Clements with formulating a management plan. I agree with the documentation with the exceptions as listed below. Patient's BUN and creatinine stable at 44 and 3.8. Fluid balance on +3636 cc in past 24 hours. Will keep patient for monitoring over next 48 hours for improvement of renal function possibly start dialysis as per nephrology recommendations. Upon discharge patient has appointment with her general surgeon Dr. Overton for removal of pelvic drain. Plan of care discussed with Attending Dr. Melquiades Peña MD PGY 2 Disclaimer: This note was dictated by speech recognition. Minor errors in bindery helper may be present due to voice recognition software. Documentation for date of: 02/13/25 Subjective Subjective Interval history: No acute overnight events. Patient seen and examined at bedside with family. Patient has no complaints, denies pain at drainage site or colostomy site. Patient stayed pain-free overnight, eating and tolerating food well. PT stationary exercises. Colostomy tube with moderate stool in bag. Patient will have to be discharged on the drain and follow-up outpatient with her surgeon for the removal of the drain. Spoke to the instructional technologist at Dr. Overton's office, who offered appointment for February 23 at 945, their earliest availability, which I took. Exam Vital Signs Temp Pulse Resp BP Pulse Ox O2 Del Method O2 Flow Rate 97.0 F 70 18 147/72 H 98 Room Air 5 02/13/25 16:00 02/13/25 16:00 02/13/25 16:02/13/25 16:02/13/25 16:02/13/25 16:02/11/25 07:59 Narrative Exam GENERAL: AOx3, no acute distress, elderly HEENT: mucous membranes dry, bilateral sclera anicteric CARDIOVASCULAR: regular rate and rhythm, S1/S2 present, no murmurs appreciated PULMONARY: clear to auscultation bilaterally, no rales/rhonchi/wheezes ABDOMINAL: soft, non-tender, non-distended, no rebound/guarding, bowel sounds present, pelvic drain catheter draining bloody output, insertion site covered, colostomy bag present with yellow clear fluid EXTREMITIES: no peripheral edema SKIN: warm and dry, intact, no rashes NEURO: CN II-XII grossly intact, no focal deficits, alert, following commands Objective Labs 02/13/25 04:10 02/13/25 04:10 Labs: Laboratory Results - last 24 hr 02/12/25 02/13/25 18:30 04:10 WBC 7.3 D RBC 2.66 L Hgb 8.3 L Hct 23.8 L MCV 90 MCH 31.2 MCHC 34.9 RDW Std Deviation 52.4 H Plt Count 54 L D Neut % (Auto) 74 Lymph % (Auto) 17 Mcminn % (Auto) 7 Eos % (Auto) 1 Baso % (Auto) 0 Neut # (Auto) 5.4 Lymph # (Auto) 1.3 Mcminn # (Auto) 0.5 Eos # (Auto) 0.0 Baso # (Auto) 0.0 Immature Gran # (Auto) 0.03 H Absolute Nucleated RBC 0.00 Immature Gran % 0 Nucleated RBC % 0 Sodium 130 L Potassium 4.0 Chloride 98 Carbon Dioxide 20.5 Anion Gap 12 BUN 44 H Creatinine 3.8 H Estim Creat Clear Calc 9.0 L eGFR 11 L* BUN/Creatinine Ratio 12 Glucose 81 Calculated Osmolality 271 L Calcium 7.2 L Corrected Calcium 8.4 L Phosphorus 3.9 Magnesium 1.8 Total Bilirubin 0.5 AST 26 ALT 9 L Alkaline Phosphatase 78 Total Protein 4.5 L Albumin 2.5 L Globulin 2.0 L Albumin/Globulin Ratio 1.3 Ur Collection Type Catheter Urine Color Colorless A Urine Clarity Clear Urine pH 7.5 H Ur Specific [place] 1.006 Urine Protein Trace Urine Glucose (UA) Negative Urine Ketones Negative Urine Blood Trace Urine Nitrite Negative Urine Bilirubin Negative Urine Urobilinogen (Auto) Negative Ur Leukocyte Esterase Positive Urine RBC 12 H Urine WBC 101 H Ur Squamous Epith Cells 0 Urine Bacteria None Ur Random Sodium 60.9 Ur Random Potassium < 10 L Ur Random Chloride 49.4 L Misc Test Result Platelets confirmed ABG Interpretation ABG results: 02/03/25 22:45 VBG pH 7.39 VBG pCO2 31 L VBG pO2 52 VBG Base Excess -5 L Quality Measures Quality Measures VTE prophylaxis and none Advance care planning discussed with:: patient Assessment & Plan Assessment Current Active Medications: Generic Name Dose Route Start Last Admin Trade Name Freq PRN Reason Stop Dose Admin Acetaminophen 650 mg 02/04/25 00:06 02/05/25 08:11 Acetaminophen 325 Mg Tablet PO 03/06/25 00:05 650 mg Q6HR PRN Administration PAIN (1-3) OR FEVER > 100.4 Citric Acid/Sodium Citrate 30 ml 02/12/25 09:00 02/13/25 09:22 Citric Acid/Sodium Citr 15 Ml Udc (Bicitra) PO 03/14/25 08:59 30 ml BID MARION Administration Dextrose 50 ml 02/04/25 00:12 Dextrose 50%-Water Inj 50 Ml Syringe IV 03/06/25 00:11 Q15MIN PRN BG <50 OR BG <70 & pt unresponsive Dextrose 25 ml 02/04/25 00:12 Dextrose 50%-Water Inj 50 Ml Syringe IV 03/06/25 00:11 Q15MIN PRN BG 50-70 responsive npo pt Gabapentin 300 mg 02/05/25 09:30 02/13/25 09:22 Gabapentin 300 Mg Capsule PO 03/07/25 09:29 300 mg Q12HR MARION Administration Glucagon 1 mg 02/04/25 00:12 Glucagon Inj 1 Mg Vial IM Q15MIN PRN BG <70, and no IV access Hydromorphone HCl 0.5 mg 02/09/25 16:20 02/09/25 16:42 Hydromorphone Inj 2 Mg/Ml Vial IVP 02/14/25 16:19 0.5 mg Q6H PRN Administration PAIN SCALE 7-10 (Severe Piperacillin/Tazobactam/Dextrose 3.375 gm in 50 mls @ 12.5 mls/hr 02/09/25 21:00 02/13/25 09:23 Zosyn IV 02/14/25 20:59 12.5 mls/hr Q12HR MARION Administration Protocol Sodium Chloride 1,000 mls @ 100 mls/hr 02/12/25 07:51 02/13/25 17:11 Ns IV 03/14/25 07:50 100 mls/hr Q10H MARION Administration Insulin Human Lispro 0 unit 02/10/25 20:45 02/13/25 17:10 Insulin Lispro (Admelog) 1 Unit/0.01 Ml Unit SC 03/12/25 20:44 Not Given ACHS MARION Protocol Ondansetron HCl 4 mg 02/04/25 00:06 02/09/25 16:02 Ondansetron Inj 2 Mg/Ml Inj 2 Ml IVP 03/06/25 00:05 4 mg Q6H PRN Administration NAUSEA OR VOMITING Protocol Pharmacy Consult 1 each 02/09/25 07:38 Pharmacy Renal Dose Adjustment 1 Ea XX 03/11/25 07:37 PRN PRN CONSULT Polyethylene Glycol 34 gm 02/07/25 14:25 02/13/25 09:24 Polyethylene Glycol 17 Gm Packet PO 03/09/25 14:24 34 gm QDAY MARION Administration Sennosides 2 tab 02/08/25 09:00 02/13/25 09:22 Senna/Docusate Sod 1 Tab Tablet PO 03/10/25 08:59 2 tab QDAY MARION Administration Protocol Plan 79-year-old female with history of metastatic colon cancer (s/p chemoradiation with CAPOX chemotherapy), 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 Patient admitted for sepsis secondary to UTI. #Acute Kidney Injury #CKD stage, IIIB #NAGMA 2/2 diarrhea (improving) #RTA, likely type 1 #Hyponatremia #Hypoalbumenemia Baseline eGFR in high 40s. On admission, creatinine 1.1, baseline 1.2-1.3. BNP elevated 471, euvolemic, elevation likely secondary to CKD as kidneys may not clear BNP efficiently versus age-related changes On 02/08, creatinine 2.0, BUN 37, eGFR 25, BUN/creatinine 19. Elevated kidney function tests most likely due to prerenal azotemia in the setting of recent repeated vomiting and n.p.o. status. On PE, patient demonstrating dry oral mucosa, and skin tenting consistent with dehydration s/p Lactated Ringer's IV 1 L at 250 mL/h 02/08 On 02/09, creatinine kept trending up to 2.6, BUN 44, BUN/Cr 17. On 02/10, creatinine elevated to 3.5, BUN 52, and eGFR 13. FeNa 2.1, indicating intrinsic etiology, likely ATN iso severe dehydration and sepsis. Bicarb on 02/11 noted to be 19, decreased from 21 likely 2/2 renal dysfunction and inability to clear toxins iso sepsis. +Ultrasound of the kidneys showed mild free fluid surrounding the right kidney as well as mild dilatation of the right lower pole calyces, and bilateral renal scar formation. No hydronephrosis present. +Patient likely dehydrated from colostomy losses, and decreased p.o. intake with previous history of nausea and recurrent vomiting. +Repeat ulytes: Na 60.9, K <10, and Cl 49.4; pH 7.5 (after starting on bicitra) Plan: ? Nephrology, Dr. Godinez, consulted; appreciate recommendations: NM scan unable to be done as services unavailable at this time. - Discontinued LR, started on NS at 100 mL/hr - Albumin 25g x2 - Patient started on Bicitra 30ml bid - Ordered repeat UA and urine lytes ? Monitor renal function daily ? Encourage oral hydration, small sips of Ensure ? Avoid nephrotoxic drugs and renally dose medications #Hyponatremia Sodium 129, likely secondary to loose watery stools and aggressive LR resuscitation +Repeat ulytes: Na 60.9, K <10, and Cl 49.4; pH 7.5 (after starting on bicitra) +U?osm?estimated as 180, U Na 61; relevant etiologies include hx of pain/nausea/ ESRD? Plan -Nephrology following; appreciate recommendations - started on NS at 100 mL /hour - Avoid correcting more than 6-8mEq within 24 hours, goal 137 #E. coli bacteremia, ESBL #ESBL Pelvic abscess, s/p drainage catheter placement 02/09 #11 cm Pelvic abscess #Urinary tract infection #History of ESBL UTI Sepsis due to UTI with acute sepsis-related organ dysfunction as evidence by lactic acidosis, 4.8 with repeat 4.0, procalcitonin 47.16 2-day history of chills, weakness, and subjective fevers. Her daughter reports a Tmax of 100.1 WBC 22.2 UA showed WBC 68, leuk esterase positive. Chest x-ray shows early bibasilar pneumonia CT Abdo/pelvis showed bilobed fluid collection in the pelvis 11 cm which projects above the urinary bladder and may represent an abscess versus dilated rectosigmoid colon In ED patient received 2 L of IVF, also received ceftriaxone 1 g, ciprofloxacin 400 mg, metronidazole 500 mg. - Operative report from 09/12/2023 for resection of rectal cancer by Dr Mitchell Reports an oncological resection of the rectum and anus to have been performed successfully. Therefore, the fluid filled sacs as found on CT abdomen and pelvis could not be representing a dilated rectosigmoid colon or have an association with those structures. It's more likely that the patient has an 11cm pelvic abscess. - JEWELRY FINISHER, Dr Velez, was consulted who states that the aformentioned abdominal lesion is unlikely to have a gynecological source. No gynocological intervention is necessary at this time. - General Surgery recommended reaching out to patient's primary surgeon Dr Tien Mitchell at [facility] - Discussed with Dr. Mitchell he recommends that patient undergo IR drainage with drain placement, if patient is stable to be discharged outpatient and follow-up with his office. If patient's condition deteriorates he recommends to inform him and initiate transfer to [facility] - Culture positive for E. coli sensitive to meropenem - Urine cultures drawn on 02/03 during this admission were negative for any growth. Meropenem, which was chosen based on previous urine culture results Pseudomonas resistant to Zosyn, is discontinued and patient is started on Zosyn. - Discontinued meropenem (02/03-02/07) - Abscess culture ESBL, yesterday wound drain output 200 cc, and this morning 40 cc bloody output noted in bag, CTAP showed decreased size of pelvic abscess Plan ?S/P successful CT-guided percutaneous placement of drainage catheter in pelvic abscess and removal of 200 cc grossly purulent fluid. Sent in for culture and sensitivity report. ? Zosyn 02/08 - ?Placed on contact precautions for history of ESBL bacteremia ?Diet to CLD, and carb consistent ? Dilaudid IVP 0.5mg Q6h PRN #Thrombocytopenia Platelets decreasing since admission 133 and now 43. Likely iso sepsis, low suspicion for HIT. No overt signs of bleeding. Plan ? Hold heparin for DVT prophylaxis - CTM CBC #Type 2 diabetes mellitus, insulin-dependent #History of neuropathy Last A1c 5.6 12/04 Takes glargine 10 units subcut every afternoon Plan ? Insulin sliding scale ordered ? 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 Lisa. On chemotherapy treatment. Plan ? Follow-up outpatient #HTN #HLD Lipid panel 11/27: trig 155, cholesterol 90, LDL 43, HDL 16. Takes carvedilol and nifedipine Plan ? Continue to hold antihypertensives #Lactic acidosis, resolved Health Maintenance: Diet: CLD GI prophylaxis: Not indicated DVT prophylaxis: Heparin every 12 hours Antibiotics: Meropenem CODE STATUS: Full Disposition: Telemetry This case was discussed with my attending physician, Dr. Arnett, and senior resident, Dr Peña. Even though this this note was carefully revised there may still be minor errors in bindery helper due to voice recognition software. Jaci Clements DO Internal Medicine PGY-1 Attending Provider Attestation/Addendum I have discussed and was present for the essential components of the history, physical examination, diagnosis, and treatment plan with the resident. I agree with the patient's care as documented by the resident and amended herein by me. Kristian Arnett DO. Although this document has been carefully reviewed, there may still be some phonetic and other typographical errors. These errors are purely grammatical due to imperfections in the software program and should not be construed in any way to compromise the substance of the patient's medical care during this visit.
[2025-02-14] VITALS (7 sets, daily range): BP systolic 134–160; BP diastolic 67–80; PULSE 59–100; RESP 12–18; TEMP 36.4–37.3; O2SAT 96–99; BMI 24.0
[2025-02-14] MEDS: SODIUM CHLORIDE 0.9% 1000 ML 1,000 ML 100 ML IV ×2 (03:30→14:33)
--- NOTE | 2025-02-14 04:15 | PC.NURSE ---
Pt arrived to unit via bed c residential monitor and IV fluids. GCS 15, on room air, IV patent to port cath, colostomy patent and dressing intact; posterior pelvic drain visualized and sanguineous drainage note; pt denies pain and nausea at this time. Nixon catheter in place and patent. groundwater monitoring technician applied. Daughter at bedside for support. Will continue to monitor.
[2025-02-14 05:58] LABS: Basophils # (Auto) 0.0 Thou/mm3 (0.0-0.2); Basophils % (Auto) 0 % (0-2.5); Eosinophils # (Auto) 0.1 Thou/mm3 (0.0-0.5); Eosinophils % (Auto) 1 % (0-10); Hematocrit 24.5 % (36.0-46.0); Immature Granulocytes Auto 0.03 Thou/mm3 (0.00-0.00); Lymphocytes # (Auto) 1.1 Thou/mm3 (1.0-4.8); Lymphocytes % (Auto) 24 % (10-50); Mean Corpuscular HGB Conc 34.7 g/dl (31.0-37.0); Mean Corpuscular Hemoglobin 30.8 pg (25.0-35.0); Mean Corpuscular Volume 89 fL (80-100); Monocytes # (Auto) 0.6 Thou/mm3 (0.0-0.8); Monocytes % (Auto) 14 % (0-12); Neutrophils # (Auto) 2.7 Thou/mm3 (1.8-7.7); Neutrophils % (Auto) 60 % (37-80); Nucleated Red Blood Cell # 0.00 Thou/mm3 (0.00-0.00); Nucleated Red Blood Cell % 0 /100 WBC (0); RDW Standard Deviation 50.4 fL (36.4-46.3); Red Blood Count 2.76 Miln/mm3 (4.00-5.20); White Blood Count 4.6 Thou/mm3 (3.6-11.0)
[2025-02-14 06:09] LABS: Hemoglobin 8.5 g/dL (12.0-16.0); Platelet Count 66 Thou/mm3 (140-440)
[2025-02-14 06:24] LABS: Slide Review Platelets confirmed
[2025-02-14 06:27] LABS: Alanine Aminotransferase 8 U/L (10-49); Albumin, Serum 2.9 gm/dL (3.4-4.8); Albumin/Globulin Ratio 1.5 (1.2-2.2); Alkaline Phosphatase 77 U/L (46-116); Anion Gap 12 (7-16); Aspartate Amino Transferase 24 U/L (0-34); BUN/Creatinine Ratio 12 Ratio (12-20); Bilirubin,Total 0.5 mg/dL (0.3-1.2); Blood Urea Nitrogen 46 mg/dL (9-23); Calcium 7.7 mg/dL (8.3-10.6); Calcium (Corrected) 8.6 mg/dL (8.5-10.1); Carbon Dioxide 22.1 mMol/L (20.0-31.0); Chloride 98 mMol/L (98-107); Creatinine (Component) 4.0 mg/dL (0.6-1.3); Estimated Creatinine Clearance 8.5 mL/min (>60); Globulin 1.9 gm/dL (2.3-3.5); Glucose 99 mg/dL (74-106); Magnesium 1.8 mg/dL (1.6-2.6); Osmolality,Calculated 276 (275-295); Potassium 3.8 mMol/L (3.4-5.1); Sodium 132 mMol/L (136-145); Total Protein 4.8 gm/dL (5.7-8.2); eGFR 11 See Note
[2025-02-14] MEDS: GABAPENTIN 300 MG CAPSULE PO ×2 (09:34→20:31)
[2025-02-14] MEDS: CITRIC ACID/SODIUM CITR 15 ML UDC (BICITRA) 30 ML PO ×2 (09:34→20:31)
[2025-02-14] MEDS: PIPER/TAZO 3.375 GM PREMIX 3.375 GM/50 ML BAG IV (09:34)
[2025-02-14] MEDS: POLYETHYLENE GLYCOL 17 GM PACKET 34 GM PO (09:34)
[2025-02-14] MEDS: SENNA/DOCUSATE SOD 1 TAB TABLET 2 TAB PO (09:35)
[2025-02-14] MEDS: ALBUMIN HUMAN-KJDA 25% IVPB 25 GM/100 ML BTL IV ×2 (10:54→20:31)
--- NOTE | 2025-02-14 11:25 | PD.RESPRO ---
Documentation for date of: 02/14/25 Subjective Subjective Interval history: History of present illness: Informant-family Ms. Roa is a 79-year-old female with history of metastatic colon cancer (s/p chemoradiation with CAPOX chemotherapy), colectomy with colostomy in August 2023, CKD stage 3b, insulin-dependent diabetes mellitus with neuropathy, hypertension, hyperlipidemia, and anemia, presenting with a 2-day history of chills, weakness, and subjective fevers. Her daughter reports a Tmax of 100.1 today. The patient denies dysuria, hematuria, urinary frequency, nausea, vomiting, or abdominal pain. Patient has a chronic Gorman catheter in place. Patient was previously admitted for complicated ESBL UTI in December 2024 and was treated with levofloxacin. ED course: Initial vitals include T 99.7, BP 139/79, HR 106, RR 18, 97% on room air. Notable labs include WBC 22.2, hemoglobin 10.3, MCV 91, platelets 133, potassium 3.5, bicarb 17.1, BUN 25, creatinine 1.1, lactic acid 4.8 with repeat 4.0, glucose 186, magnesium 1.3, T. bili 0.5, LFTs mildly elevated with AST 117, ALT 56, alk phos 157, lactate dehydrogenase 344, albumin 3.2, Pro-[place] 47.16. UA showed WBC 68, leuk esterase positive. CT Abdo/pelvis showed bilobed fluid collection in the pelvis 11 cm which projects above the urinary bladder and may represent an abscess versus dilated rectosigmoid colon Past medical history: As stated above. Past surgical history: Colectomy with colostomy (08/2023), cholecystectomy (2019) Allergies: NKDA. Family history: Father diabetes, no family history of cancer Social history: Denies alcohol use, smoking, or illicit drug use. Patient was admitted to telemetry for ESBL bacteremia secondary to UTI. Nephrology consulted for worsening THOMAS on CKD stage 3b since 02/08. 02/10/25: Patient seen and assessed with family at bedside. Telephone recreation officer used for Surinamese translation. No complaints this morning. Per chart review, NG tube placed and made NPO on 02/07 due to concern for ileus. clamped on 02/09 and plan to remove today per primary team. This morning at bedside, gorman draining light urine but decreased output of 350 cc over past 24 hours (ideally 600cc/24hrs). Colostomy bag at left lower quadrant draining copious amounts of green loose stool. Creatinine 3.5 (from 2.6). Sodium slowly increasing, 145 today. GFR worsening, 13 today. She was just restarted on oral diet yesterday but appears to have poor oral intake. Had CT A/P with contrast twice since admission. Received IVF since 02/08, given another bolus IV LR 1L today. Encouraged oral hydration with water. Continue IV fluids, does not need dialysis at this time. Will re-evaluate urine output and renal panel tomorrow. 02/11/25: Patient seen and assessed at bedside with family. Telephone recreation officer used for Surinamese translation. No complaints this morning. Received 1.2 L IVF yesterday but urine output continues to be decreased (200 cc overnight via Gorman + ~50cc at bedside). Urine output appears more clear. Noted ~600 cc liquidy stool in colostomy bag. Potassium stable at 4.1. BUN 49, creatinine 3.8. Continue IVF. Bicarb decreased to 19.7 with anion gap elevated at 15.6 with corrected albumin, likely secondary to loose stools. Continue IVF at 80 mL/hr, still no need for dialysis. 02/12/25: Patient seen and assessed at bedside with family. No complaints this morning. Urine output improved (320 cc), continues to appear clear, still no need for dialysis at this time. Sodium 129, chloride 99, discontinued LR and started on NS maintenance fluid. Bicarbonate 19.1, likely GI loss via loose watery stools. Start on Bicitra. 02/13/25: Patient seen and assessed at bedside with family present. No complaints this morning. Urine pale and clear, output continues to improve (1.2 L overnight). Sodium 130, bicarb improved to 20.5, Cr stable at 3.8. Patient is medically stable for discharge from renal standpoint, send home with sodium bicarb 325mg BID. Follow up in clinic in 1 week with renal panel. 02/14/25: Patient seen and assessed at bedside with family present. Surinamese translation provided by in-house sales representative graphic art. Feeling well. Sodium 132, improving, continue NS. Bicarb 22.1, continue Bicitra. Creatinine 4.0, worsening despite good urine output (1.8L overnight). GFR 11. Continue IV NS maintenance. Ordered PPD and hep panel in anticipation for possible dialysis. Had in depth discussion with family that patient may require dialysis temporarily if GFR does not improve by Sunday. Exam Vital Signs Temp Pulse Resp BP Pulse Ox O2 Del Method O2 Flow Rate 97.8 F 69 18 134/67 H 96 Room Air 5 02/14/25 08:00 02/14/25 09:41 02/14/25 09:41 02/14/25 08:00 02/14/25 09:41 02/14/25 08:00 02/11/25 07:59 Narrative Exam Physical Exam General: Surinamese speaking, cachetic elderly lady. Awake and in no acute distress. Conversational. HEENT: Normocephalic, atraumatic, mucous membranes dry. Heart: Regular rate and rhythm, normal S1 and S2, no murmurs appreciated. Lungs: Clear to auscultation bilaterally. Abdomen: Soft, nondistended, nontender, positive bowel sounds. No guarding or rebound tenderness. Colostomy on left lower abdomen. Pelvic percutaneous drainage catheter in place. Neurologic: Alert and oriented x3, no gross neurological deficit, and patient able to move all 4 extremities. Extremities: No edema. Skin: No rash or ecchymoses. Objective Labs 02/15/25 08:01 02/15/25 05:25 Labs: Laboratory Results - last 24 hr 02/14/25 04:40 WBC 4.6 RBC 2.76 L Hgb 8.5 L Hct 24.5 L MCV 89 MCH 30.8 MCHC 34.7 RDW Std Deviation 50.4 H Plt Count 66 L D Neut % (Auto) 60 Lymph % (Auto) 24 [place] % (Auto) 14 H Eos % (Auto) 1 Baso % (Auto) 0 Neut # (Auto) 2.7 Lymph # (Auto) 1.1 [place] # (Auto) 0.6 Eos # (Auto) 0.1 Baso # (Auto) 0.0 Immature Gran # (Auto) 0.03 H Absolute Nucleated RBC 0.00 Immature Gran % 1 H Nucleated RBC % 0 Sodium 132 L Potassium 3.8 Chloride 98 Carbon Dioxide 22.1 Anion Gap 12 BUN 46 H Creatinine 4.0 H Estim Creat Clear Calc 8.5 L eGFR 11 L* BUN/Creatinine Ratio 12 Glucose 99 Calculated Osmolality 276 Calcium 7.7 L Corrected Calcium 8.6 Magnesium 1.8 Total Bilirubin 0.5 AST 24 ALT 8 L Alkaline Phosphatase 77 Total Protein 4.8 L Albumin 2.9 L Globulin 1.9 L Albumin/Globulin Ratio 1.5 Misc Test Result Platelets confirmed ABG Interpretation ABG results: 02/03/25 22:45 VBG pH 7.39 VBG pCO2 31 L VBG pO2 52 VBG Base Excess -5 L Quality Measures Quality Measures VTE prophylaxis and none Advance care planning discussed with:: patient and child Assessment & Plan Assessment Current Active Medications: Generic Name Dose Route Start Last Admin Trade Name Freq PRN Reason Stop Dose Admin Acetaminophen 650 mg 02/04/25 00:06 02/05/25 08:11 Acetaminophen 325 Mg Tablet PO 03/06/25 00:05 650 mg Q6HR PRN Administration PAIN (1-3) OR FEVER > 100.4 Citric Acid/Sodium Citrate 30 ml 02/12/25 09:00 02/14/25 09:34 Citric Acid/Sodium Citr 15 Ml Udc (Bicitra) PO 03/14/25 08:59 30 ml BID MARION Administration Dextrose 50 ml 02/04/25 00:12 Dextrose 50%-Water Inj 50 Ml Syringe IV 03/06/25 00:11 Q15MIN PRN BG <50 OR BG <70 & pt unresponsive Dextrose 25 ml 02/04/25 00:12 Dextrose 50%-Water Inj 50 Ml Syringe IV 03/06/25 00:11 Q15MIN PRN BG 50-70 responsive npo pt Gabapentin 300 mg 02/05/25 09:30 02/14/25 09:34 Gabapentin 300 Mg Capsule PO 03/07/25 09:29 300 mg Q12HR MARION Administration Glucagon 1 mg 02/04/25 00:12 Glucagon Inj 1 Mg Vial IM Q15MIN PRN BG <70, and no IV access Hydromorphone HCl 0.5 mg 02/09/25 16:20 02/09/25 16:42 Hydromorphone Inj 2 Mg/Ml Vial IVP 02/18/25 20:26 0.5 mg Q6H PRN Administration PAIN SCALE 7-10 (Severe Piperacillin/Tazobactam/Dextrose 3.375 gm in 50 mls @ 12.5 mls/hr 02/09/25 21:00 02/14/25 09:34 Zosyn IV 02/14/25 20:59 12.5 mls/hr Q12HR MARION Administration Protocol Albumin Human 25 gm in 100 mls @ 100 mls/hr 02/14/25 09:45 02/14/25 10:54 Albuminex 25% Ivpb IV 02/17/25 09:44 100 mls/hr BID MARION Administration Insulin Human Lispro 0 unit 02/10/25 20:45 02/14/25 07:59 Insulin Lispro (Admelog) 1 Unit/0.01 Ml Unit SC 03/12/25 20:44 Not Given ACHS MARION Protocol Ondansetron HCl 4 mg 02/04/25 00:06 02/09/25 16:02 Ondansetron Inj 2 Mg/Ml Inj 2 Ml IVP 03/06/25 00:05 4 mg Q6H PRN Administration NAUSEA OR VOMITING Protocol Pharmacy Consult 1 each 02/09/25 07:38 Pharmacy Renal Dose Adjustment 1 Ea XX 03/11/25 07:37 PRN PRN CONSULT Polyethylene Glycol 34 gm 02/07/25 14:25 02/14/25 09:34 Polyethylene Glycol 17 Gm Packet PO 03/09/25 14:24 34 gm QDAY MARION Administration Sennosides 2 tab 02/08/25 09:00 02/14/25 09:35 Senna/Docusate Sod 1 Tab Tablet PO 03/10/25 08:59 2 tab QDAY MARION Administration Protocol Plan Patient is a 79-year-old female with past medical history of metastatic colon cancer (s/p chemoradiation with CAPOX chemotherapy), colectomy with colostomy in August 2023, CKD stage 3b, insulin-dependent diabetes mellitus with neuropathy, hypertension, hyperlipidemia, and anemia, presenting with a 2-day history of chills, weakness, and subjective fevers. Admitted to telemetry for ESBL bacteremia secondary to UTI. #THOMAS on CKD stage, IIIB #ATN - Clinically patient appears rather hypovolemic with colostomy losses and decreased p.o. intake. - Creatinine on admission 1.1 --> 2.0 (02/08) -> 2.6 -> 3.5. Baseline 0.8-1.2. - eGFR on admission >60 --> 51 -> 25 (02/08) -> 18 -> 13. Baseline eGFR 38-46. - NG tube placed on 02/07 due to concern for ileus. Clamped on 02/09, removed 02/10. - Patient also received CT with contrast on 02/03/2025. - Bilateral renal US 02/10 showed no hydronephrosis. Age-related changes noted. - FeNa 1.9%, mixed prerenal and intrinsic - Likely ATN iso dehydration from NPO and NG suctioning, as well as imaging with contrast Plan: - Continue NS at 100 mL/hr - Monitor daily renal panel - Strict MARCELO's - Encourage oral hydration. - Avoid nephrotoxic drugs - Renally dose medications - Plan for dialysis on Sunday if no improvement in creatinine/GFR. Discussed plan with family at bedside today, agreeable with plan. #NAGMA 04/13 diarrhea (improving) #RTA, likely type 1 - Bicarb 19.1 on 02/12, slowly decreasing since 02/09 due to diarrhea. Improved to 20.5 today. - Serum anion gap with albumin correction 14.9 - Urine electrolytes: Na 62.8, Cr 81, K 54, Cl 41.8; pH 6.5 (02/10/25) - Repeat ulytes: Na 60.9, K <10, and Cl 49.4; pH 7.5 (after starting on bicitra) - Urine anion gap 20.5 suggesting possible component of RTA as well, likely type 1 based on urine pH Plan: - Continue Bicitra 30 ml BID #Hyponatremia (improving) - Sodium 129, slowly decreasing since 02/10. Chloride also decreasing. - On exam, patient appears hypovolemic, asymptomatic. - Likely secondary to loose watery stools and aggressive LR resuscitation Plan: - NS at 100 mL/hr - Avoid correcting more than 6-8mEq within 24 hours #E. 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 Godinez. Radha Clayton DO, PGY-1 Attending Provider Attestation/Addendum Patient currently seen and examined with resident physician Dr. Clayton. Note reviewed, agree with findings and recommendations. Patient currently seen in telemetry. daughter at bedside. bird keeper helped with interpretation. Clinically patient looks rather euvolemic . Has colostomy losses. Was given fluids for 3 days. Creatinine stabilized at 3.8. Urine seems to be very clear and had 1.2 L of urinary output. Suspect patient currently in ischemic ATN and hopefully will recover in the next 1 to 2 weeks. Patient also received CT with contrast on 02/03/2025. Renal ultrasound showed no hydronephrosis. Age-related changes in the renal ultrasound noted. Renal scan was ordered-noted nuclear medicine services down for the whole month. Will monitor urine output, creatinine closely. Potassium seems to be acceptable. Hold off on dialysis. GFR 11- Spoke to primary team/Dr. Arnett-Will Keep her over the weekend and if there is no improvement in renal function plan for dialysis on Sunday. GFR stable. UOP acceptable daughter had several questions which were answered to her satisfaction.
--- NOTE | 2025-02-14 14:26 | ESPR_ITS ---
Documentation for date of: 02/14/25 Subjective Subjective Interval history: No acute overnight events. Patient seen and examined at bedside with family. Patient has no complaints, denies pain at drainage site or colostomy site. Patient stayed pain-free overnight, eating and tolerating food well. When PT came to mobilize and walk the patient yesterday, she was sleeping, and exercise could not be done. Patient's family member has been giving exercises in bed instead. PT stationary exercises. Colostomy tube with moderate stool in bag. Patient will have to be discharged on the drain and follow-up outpatient with her surgeon for the removal of the drain. Spoke to the learning development specialist at Dr. Overton's office, who offered appointment for February 23 at 945, their earliest availability, which I took. Exam Vital Signs Temp Pulse Resp BP Pulse Ox O2 Del Method O2 Flow Rate 97.9 F 66 18 156/80 H 98 Room Air 5 02/14/25 12:00 02/14/25 12:00 02/14/25 12:00 02/14/25 12:02/14/25 12:00 02/14/25 12:00 02/11/25 07:59 Narrative Exam GENERAL: AOx3, no acute distress, elderly HEENT: mucous membranes dry, bilateral sclera anicteric CARDIOVASCULAR: regular rate and rhythm, S1/S2 present, no murmurs appreciated PULMONARY: clear to auscultation bilaterally, no rales/rhonchi/wheezes ABDOMINAL: soft, non-tender, non-distended, no rebound/guarding, bowel sounds present, pelvic drain catheter draining bloody output, insertion site covered, colostomy bag present with yellow clear fluid EXTREMITIES: no peripheral edema SKIN: warm and dry, intact, no rashes NEURO: CN II-XII grossly intact, no focal deficits, alert, following commands Objective Labs 02/16/25 14:59 02/16/25 05:45 Labs: Laboratory Results - last 24 hr 02/14/25 04:40 WBC 4.6 RBC 2.76 L Hgb 8.5 L Hct 24.5 L MCV 89 MCH 30.8 MCHC 34.7 RDW Std Deviation 50.4 H Plt Count 66 L D Neut % (Auto) 60 Lymph % (Auto) 24 [place] % (Auto) 14 H Eos % (Auto) 1 Baso % (Auto) 0 Neut # (Auto) 2.7 Lymph # (Auto) 1.1 [place] # (Auto) 0.6 Eos # (Auto) 0.1 Baso # (Auto) 0.0 Immature Gran # (Auto) 0.03 H Absolute Nucleated RBC 0.00 Immature Gran % 1 H Nucleated RBC % 0 Sodium 132 L Potassium 3.8 Chloride 98 Carbon Dioxide 22.1 Anion Gap 12 BUN 46 H Creatinine 4.0 H Estim Creat Clear Calc 8.5 L eGFR 11 L* BUN/Creatinine Ratio 12 Glucose 99 Calculated Osmolality 276 Calcium 7.7 L Corrected Calcium 8.6 Magnesium 1.8 Total Bilirubin 0.5 AST 24 ALT 8 L Alkaline Phosphatase 77 Total Protein 4.8 L Albumin 2.9 L Globulin 1.9 L Albumin/Globulin Ratio 1.5 Misc Test Result Platelets confirmed ABG Interpretation ABG results: 02/03/25 22:45 VBG pH 7.39 VBG pCO2 31 L VBG pO2 52 VBG Base Excess -5 L Quality Measures Quality Measures VTE prophylaxis and none Advance care planning discussed with:: patient Assessment & Plan Assessment Current Active Medications: Generic Name Dose Route Start Last Admin Trade Name Freq PRN Reason Stop Dose Admin Acetaminophen 650 mg 02/04/25 00:06 02/05/25 08:11 Acetaminophen 325 Mg Tablet PO 03/06/25 00:05 650 mg Q6HR PRN Administration PAIN (1-3) OR FEVER > 100.4 Citric Acid/Sodium Citrate 30 ml 02/12/25 09:00 02/14/25 09:34 Citric Acid/Sodium Citr 15 Ml Udc (Bicitra) PO 03/14/25 08:59 30 ml BID MARION Administration Dextrose 50 ml 02/04/25 00:12 Dextrose 50%-Water Inj 50 Ml Syringe IV 03/06/25 00:11 Q15MIN PRN BG <50 OR BG <70 & pt unresponsive Dextrose 25 ml 02/04/25 00:12 Dextrose 50%-Water Inj 50 Ml Syringe IV 03/06/25 00:11 Q15MIN PRN BG 50-70 responsive npo pt Gabapentin 300 mg 02/05/25 09:30 02/14/25 09:34 Gabapentin 300 Mg Capsule PO 03/07/25 09:29 300 mg Q12HR MARION Administration Glucagon 1 mg 02/04/25 00:12 Glucagon Inj 1 Mg Vial IM Q15MIN PRN BG <70, and no IV access Hydromorphone HCl 0.5 mg 02/09/25 16:20 02/09/25 16:42 Hydromorphone Inj 2 Mg/Ml Vial IVP 02/18/25 20:26 0.5 mg Q6H PRN Administration PAIN SCALE 7-10 (Severe Piperacillin/Tazobactam/Dextrose 3.375 gm in 50 mls @ 12.5 mls/hr 02/09/25 21:00 02/14/25 09:34 Zosyn IV 02/14/25 20:59 12.5 mls/hr Q12HR MARION Administration Protocol Albumin Human 25 gm in 100 mls @ 100 mls/hr 02/14/25 09:45 02/14/25 10:54 Albuminex 25% Ivpb IV 02/17/25 09:44 100 mls/hr BID MARION Administration Sodium Chloride 1,000 mls @ 100 mls/hr 02/14/25 14:16 Ns IV 03/16/25 14:15 .Q10H MARION Insulin Human Lispro 0 unit 02/10/25 20:45 02/14/25 12:13 Insulin Lispro (Admelog) 1 Unit/0.01 Ml Unit SC 03/12/25 20:44 Not Given ACHS [facility] Protocol Ondansetron HCl 4 mg 02/04/25 00:06 02/09/25 16:02 Ondansetron Inj 2 Mg/Ml Inj 2 Ml IVP 03/06/25 00:05 4 mg Q6H PRN Administration NAUSEA OR VOMITING Protocol Pharmacy Consult 1 each 02/09/25 07:38 Pharmacy Renal Dose Adjustment 1 Ea XX 03/11/25 07:37 PRN PRN CONSULT Polyethylene Glycol 34 gm 02/07/25 14:25 02/14/25 09:34 Polyethylene Glycol 17 Gm Packet PO 03/09/25 14:24 34 gm QDAY MARION Administration Sennosides 2 tab 02/08/25 09:00 02/14/25 09:35 Senna/Docusate Sod 1 Tab Tablet PO 03/10/25 08:59 2 tab QDAY MARION Administration Protocol Plan 79-year-old female with history of metastatic colon cancer (s/p chemoradiation with CAPOX chemotherapy), 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 Patient admitted for sepsis secondary to UTI. #Acute Kidney Injury #CKD stage, IIIB #ATN #NAGMA 2/2 diarrhea (improving) #RTA, likely type 1 #Hyponatremia #Hypoalbumenemia Baseline eGFR in high 40s. On admission, creatinine 1.1, baseline 1.2-1.3. BNP elevated 471, euvolemic, elevation likely secondary to CKD as kidneys may not clear BNP efficiently versus age-related changes On 02/08, creatinine 2.0, BUN 37, eGFR 25, BUN/creatinine 19. Elevated kidney function tests most likely due to prerenal azotemia in the setting of recent repeated vomiting and n.p.o. status. On PE, patient demonstrating dry oral mucosa, and skin tenting consistent with dehydration s/p Lactated Ringer's IV 1 L at 250 mL/h 02/08 On 02/09, creatinine kept trending up to 2.6, BUN 44, BUN/Cr 17. On 02/10, creatinine elevated to 3.5, BUN 52, and eGFR 13. FeNa 2.1, indicating intrinsic etiology, likely ATN iso severe dehydration and sepsis. Bicarb on 02/11 noted to be 19, decreased from 21 likely 2/2 renal dysfunction and inability to clear toxins iso sepsis. +Ultrasound of the kidneys showed mild free fluid surrounding the right kidney as well as mild dilatation of the right lower pole calyces, and bilateral renal scar formation. No hydronephrosis present. +Patient likely dehydrated from colostomy losses, and decreased p.o. intake with previous history of nausea and recurrent vomiting. +Repeat ulytes: Na 60.9, K <10, and Cl 49.4; pH 7.5 (after starting on bicitra) +Likely ATN iso dehydration from NPO and NG suctioning, as well as imaging with contrast Plan: ? Nephrology, Dr. Godinez, consulted; appreciate recommendations: Plan for dialysis on Sunday if no improvement in creatinine/GFR. Family in agreement according to nephrology. - continued NS at 100 mL/hr - continue on Bicitra 30ml bid - s/p IVB NS 1L - Albumin 25g bid - Bed to chair with assistance bid ? Monitor renal function daily ? Encourage oral hydration, small sips of Ensure ? Avoid nephrotoxic drugs and renally dose medications #Hyponatremia (improving) Sodium 129, likely secondary to loose watery stools and aggressive LR resuscitation +Repeat ulytes: Na 60.9, K <10, and Cl 49.4; pH 7.5 (after starting on bicitra) +U?osm?estimated as 180, U Na 61; relevant etiologies include hx of pain/nausea/ ESRD? + Na 129 ->130 ->132 Plan -Nephrology following; appreciate recommendations - started on NS at 100 mL /hour - Avoid correcting more than 6-8mEq within 24 hours, goal 137 #E. coli bacteremia, ESBL #ESBL Pelvic abscess, s/p drainage catheter placement 02/09 #11 cm Pelvic abscess #Urinary tract infection #History of ESBL UTI Sepsis due to UTI with acute sepsis-related organ dysfunction as evidence by lactic acidosis, 4.8 with repeat 4.0, procalcitonin 47.16 2-day history of chills, weakness, and subjective fevers. Her daughter reports a Tmax of 100.1 WBC 22.2 UA showed WBC 68, leuk esterase positive. Chest x-ray shows early bibasilar pneumonia CT Abdo/pelvis showed bilobed fluid collection in the pelvis 11 cm which projects above the urinary bladder and may represent an abscess versus dilated rectosigmoid colon In ED patient received 2 L of IVF, also received ceftriaxone 1 g, ciprofloxacin 400 mg, metronidazole 500 mg. - Operative report from 09/12/2023 for resection of rectal cancer by Dr Mitchell Reports an oncological resection of the rectum and anus to have been performed successfully. Therefore, the fluid filled sacs as found on CT abdomen and pelvis could not be representing a dilated rectosigmoid colon or have an association with those structures. It's more likely that the patient has an 11cm pelvic abscess. - ELECTRICAL SYSTEM SPECIALIST, Dr Velez, was consulted who states that the aformentioned abdominal lesion is unlikely to have a gynecological source. No gynocological intervention is necessary at this time. - General Surgery recommended reaching out to patient's primary surgeon Dr Tien Mitchell at [facility] - Discussed with Dr. Mitchell he recommends that patient undergo IR drainage with drain placement, if patient is stable to be discharged outpatient and follow-up with his office. If patient's condition deteriorates he recommends to inform him and initiate transfer to [facility] - Culture positive for E. coli sensitive to meropenem - Urine cultures drawn on 02/03 during this admission were negative for any growth. Meropenem, which was chosen based on previous urine culture results Pseudomonas resistant to Zosyn, is discontinued and patient is started on Zosyn. - Discontinued meropenem (02/03-02/07) - Abscess culture ESBL, yesterday wound drain output 200 cc, and this morning 40 cc bloody output noted in bag, CTAP showed decreased size of pelvic abscess Plan ?S/P successful CT-guided percutaneous placement of drainage catheter in pelvic abscess and removal of 200 cc grossly purulent fluid. Sent in for culture and sensitivity report. ? Zosyn 02/08 - ?Placed on contact precautions for history of ESBL bacteremia ?Diet to CLD, and carb consistent ? Dilaudid IVP 0.5mg Q6h PRN #Thrombocytopenia Platelets decreasing since admission 133 and now 43. Likely iso sepsis, low suspicion for HIT. No overt signs of bleeding. Plan ? Hold heparin for DVT prophylaxis - CTM CBC #Type 2 diabetes mellitus, insulin-dependent #History of neuropathy Last A1c 5.6 12/04 Takes glargine 10 units subcut every afternoon Plan ? Insulin sliding scale ordered ? 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 Lisa. On chemotherapy treatment. Plan ? Follow-up outpatient #HTN #HLD Lipid panel 11/27: trig 155, cholesterol 90, LDL 43, HDL 16. Takes carvedilol and nifedipine Plan ? Continue to hold antihypertensives #Lactic acidosis, resolved Health Maintenance: Diet: carb consistent GI prophylaxis: Not indicated DVT prophylaxis: Heparin every 12 hours Antibiotics: Meropenem CODE STATUS: Full Disposition: Telemetry This case was discussed with my attending physician, Dr. Arnett, and senior resident, Dr Reeder. Even though this this note was carefully revised there may still be minor errors in traffic rate computer due to voice recognition software. Jaci Clements, DO Internal Medicine PGY-1 Senior Resident Attestation: The patient reported no pain overnight, and reported eating and drinking well. The patient family are giving the patient exercise in bed. Still pending on improving renal function to be discharged. I discussed with and supervised the strategy intern physician involved in the care of this patient. I personally saw and examined the patient and discussed the assessment and plan with the entire medicine team, including my attending. I agree with the assessment and plan as documented above. Gustavo Reeder MD PGY3 Internal Medicine Attending Provider Attestation/Addendum I have discussed and was present for the essential components of the history, physical examination, diagnosis, and treatment plan with the resident. I agree with the patient's care as documented by the resident and amended herein by me. Kristian Arnett DO. Although this document has been carefully reviewed, there may still be some phonetic and other typographical errors. These errors are purely grammatical due to imperfections in the software program and should not be construed in any way to compromise the substance of the patient's medical care during this visit.
[2025-02-14] MEDS: TUBERCULIN PPD INJ 5 UNIT/0.1 ML DOSE ID (14:32)
[2025-02-15] VITALS (9 sets, daily range): BP systolic 120–160; BP diastolic 57–76; PULSE 58–75; RESP 15–19; TEMP 36.3–36.4; O2SAT 96–100; BMI 29.4
--- NOTE | 2025-02-15 00:11 | PC.NURSE ---
MD Hardy made aware that pt BP 160/70, HR 68, no new order made at this time.
[2025-02-15] MEDS: SODIUM CHLORIDE 0.9% 1000 ML 1,000 ML 100 ML IV ×3 (00:55→20:51)
[2025-02-15 05:58] LABS: Basophils # (Auto) 0.0 Thou/mm3 (0.0-0.2); Basophils % (Auto) 0 % (0-2.5); Eosinophils # (Auto) 0.0 Thou/mm3 (0.0-0.5); Eosinophils % (Auto) 1 % (0-10); Immature Granulocytes Auto 0.12 Thou/mm3 (0.00-0.00); Lymphocytes # (Auto) 1.0 Thou/mm3 (1.0-4.8); Lymphocytes % (Auto) 32 % (10-50); Mean Corpuscular HGB Conc 34.6 g/dl (31.0-37.0); Mean Corpuscular Hemoglobin 31.1 pg (25.0-35.0); Mean Corpuscular Volume 90 fL (80-100); Monocytes # (Auto) 0.7 Thou/mm3 (0.0-0.8); Monocytes % (Auto) 23 % (0-12); Neutrophils # (Auto) 1.3 Thou/mm3 (1.8-7.7); Neutrophils % (Auto) 40 % (37-80); Nucleated Red Blood Cell # 0.00 Thou/mm3 (0.00-0.00); Nucleated Red Blood Cell % 0 /100 WBC (0); RDW Standard Deviation 52.0 fL (36.4-46.3); Red Blood Count 2.09 Miln/mm3 (4.00-5.20); White Blood Count 3.2 Thou/mm3 (3.6-11.0)
[2025-02-15 06:02] LABS: Platelet Count 69 Thou/mm3 (140-440)
[2025-02-15 06:04] LABS: Hematocrit 18.8 % (36.0-46.0); Hemoglobin 6.5 g/dL (12.0-16.0)
[2025-02-15 06:22] LABS: Path Review Blood Smear Sent to Pathologist; Slide Review Platelets confirmed
[2025-02-15 06:56] LABS: Albumin, Serum 2.6 gm/dL (3.4-4.8); Albumin/Globulin Ratio 1.4 (1.2-2.2); Alkaline Phosphatase 48 U/L (46-116); Anion Gap 12 (7-16); Aspartate Amino Transferase 17 U/L (0-34); BUN/Creatinine Ratio 10 Ratio (12-20); Bilirubin,Total 0.4 mg/dL (0.3-1.2); Blood Urea Nitrogen 39 mg/dL (9-23); Calcium 7.3 mg/dL (8.3-10.6); Calcium (Corrected) 8.4 mg/dL (8.5-10.1); Carbon Dioxide 20.6 mMol/L (20.0-31.0); Chloride 104 mMol/L (98-107); Creatinine (Component) 3.8 mg/dL (0.6-1.3); Estimated Creatinine Clearance 9.0 mL/min (>60); Globulin 1.8 gm/dL (2.3-3.5); Glucose 94 mg/dL (74-106); Magnesium 1.5 mg/dL (1.6-2.6); Osmolality,Calculated 283 (275-295); Potassium 3.5 mMol/L (3.4-5.1); Sodium 137 mMol/L (136-145); Total Protein 4.4 gm/dL (5.7-8.2); eGFR 11 See Note
[2025-02-15 06:59] LABS: Alanine Aminotransferase < 7 U/L (10-49)
[2025-02-15 08:47] LABS: Hematocrit 21.3 % (36.0-46.0)
[2025-02-15 08:57] LABS: Hemoglobin 7.4 g/dL (12.0-16.0)
[2025-02-15] MEDS: SENNA/DOCUSATE SOD 1 TAB TABLET 2 TAB PO (09:33)
[2025-02-15] MEDS: ALBUMIN HUMAN-KJDA 25% IVPB 25 GM/100 ML BTL IV ×2 (09:33→20:49)
[2025-02-15] MEDS: GABAPENTIN 300 MG CAPSULE PO ×2 (09:33→20:50)
[2025-02-15] MEDS: MAGNESIUM OXIDE 400 MG TABLET PO (09:33)
[2025-02-15] MEDS: CITRIC ACID/SODIUM CITR 15 ML UDC (BICITRA) 30 ML PO ×2 (09:33→20:49)
[2025-02-15] MEDS: POLYETHYLENE GLYCOL 17 GM PACKET 34 GM PO (09:34)
--- NOTE | 2025-02-15 10:14 | ESPR_ITS ---
Documentation for date of: 02/15/25 Subjective Subjective Interval history: Ms. Roa is a 79-year-old female with history of metastatic colon cancer (s/p chemoradiation with CAPOX chemotherapy), colectomy with colostomy in August 2023, CKD stage 3b, insulin-dependent diabetes mellitus with neuropathy, hypertension, hyperlipidemia, and anemia, presenting with a 2-day history of chills, weakness, and subjective fevers. Her daughter reports a Tmax of 100.1 today. The patient denies dysuria, hematuria, urinary frequency, nausea, vomiting, or abdominal pain. Patient has a chronic Gorman catheter in place. Patient was previously admitted for complicated ESBL UTI in December 2024 and was treated with levofloxacin. ED course: Initial vitals include T 99.7, BP 139/79, HR 106, RR 18, 97% on room air. Notable labs include WBC 22.2, hemoglobin 10.3, MCV 91, platelets 133, potassium 3.5, bicarb 17.1, BUN 25, creatinine 1.1, lactic acid 4.8 with repeat 4.0, glucose 186, magnesium 1.3, T. bili 0.5, LFTs mildly elevated with AST 117, ALT 56, alk phos 157, lactate dehydrogenase 344, albumin 3.2, Pro-Corwin 47.16. UA showed WBC 68, leuk esterase positive. CT Abdo/pelvis showed bilobed fluid collection in the pelvis 11 cm which projects above the urinary bladder and may represent an abscess versus dilated rectosigmoid colon Past medical history: As stated above. Past surgical history: Colectomy with colostomy (08/2023), cholecystectomy (2019) Allergies: NKDA. Family history: Father diabetes, no family history of cancer Social history: Denies alcohol use, smoking, or illicit drug use. Patient was admitted to telemetry for ESBL bacteremia secondary to UTI. Nephrology consulted for worsening THOMAS on CKD stage 3b since 02/08. 02/10/25: Patient seen and assessed with family at bedside. Telephone translator interpreter used for [place] translation. No complaints this morning. Per chart review, NG tube placed and made NPO on 02/07 due to concern for ileus. clamped on 02/09 and plan to remove today per primary team. This morning at bedside, gorman draining light urine but decreased output of 350 cc over past 24 hours (ideally 600cc/24hrs). Colostomy bag at left lower quadrant draining copious amounts of green loose stool. Creatinine 3.5 (from 2.6). Sodium slowly increasing, 145 today. GFR worsening, 13 today. She was just restarted on oral diet yesterday but appears to have poor oral intake. Had CT A/P with contrast twice since admission. Received IVF since 02/08, given another bolus IV LR 1L today. Encouraged oral hydration with water. Continue IV fluids, does not need dialysis at this time. Will re-evaluate urine output and renal panel tomorrow. 02/11/25: Patient seen and assessed at bedside with family. Telephone translator interpreter used for Northern [place] translation. No complaints this morning. Received 1.2 L IVF yesterday but urine output continues to be decreased (200 cc overnight via Gorman + ~50cc at bedside). Urine output appears more clear. Noted ~600 cc liquidy stool in colostomy bag. Potassium stable at 4.1. BUN 49, creatinine 3.8. Continue IVF. Bicarb decreased to 19.7 with anion gap elevated at 15.6 with corrected albumin, likely secondary to loose stools. Continue IVF at 80 mL/hr, still no need for dialysis. 02/12/25: Patient seen and assessed at bedside with family. No complaints this morning. Urine output improved (320 cc), continues to appear clear, still no need for dialysis at this time. Sodium 129, chloride 99, discontinued LR and started on NS maintenance fluid. Bicarbonate 19.1, likely GI loss via loose watery stools. Start on Bicitra. 02/13/25: Patient seen and assessed at bedside with family present. No complaints this morning. Urine pale and clear, output continues to improve (1.2 L overnight). Sodium 130, bicarb improved to 20.5, Cr stable at 3.8. Patient is medically stable for discharge from renal standpoint, send home with sodium bicarb 325mg BID. Follow up in clinic in 1 week with renal panel. 02/14/25: Patient seen and assessed at bedside with family present. Northern [place] translation provided by in-house customer support engineer. Feeling well. Sodium 132, improving, continue NS. Bicarb 22.1, continue Bicitra. Creatinine 4.0, worsening despite good urine output (1.8L overnight). GFR 11. Continue IV NS maintenance. Ordered PPD and hep panel in anticipation for possible dialysis. Had in depth discussion with family that patient may require dialysis temporarily if GFR does not improve by Sunday. 02/15/2025 patient seen and examined with the help of site interpreter. Blood pressure 122/70, heart rate 68. No acute event. Hemoglobin 7.4, WBC 3.2, platelets 69. Sodium 137, potassium 3.5, creatinine 3.8, GFR 11, calcium 8.4, magnesium 1.5 which was replaced, albumin 2.6. Patient made 1900 cc of urine. BUN and creatinine tad better. On IV albumin. Avoid nephrotoxics. Review of Systems Review of Systems Narrative Review of Systems: Denies any chest pain, shortness of breath. Denies any nausea, vomiting. More alert and awake per family. Exam Vital Signs Temp Pulse Resp BP Pulse Ox O2 Del Method O2 Flow Rate 36.3 C 74 19 143/68 H 96 Room Air 5 02/15/25 08:00 02/15/25 08:06 02/15/25 08:00 02/15/25 08:00 02/15/25 08:00 02/15/25 08:00 02/11/25 07:59 Narrative Exam Physical Exam General: Northern Irish speaking, cachetic elderly lady. Awake and in no acute distress. Conversational. HEENT: Normocephalic, atraumatic, mucous membranes Heart: Regular rate and rhythm, normal S1 and S2, no murmurs appreciated. Lungs: Clear to auscultation bilaterally. Abdomen: Soft, nondistended, nontender, positive bowel sounds. No guarding or rebound tenderness. Colostomy on left lower abdomen. Pelvic percutaneous drainage catheter in place. Neurologic: Alert and oriented x3, no gross neurological deficit, and patient able to move all 4 extremities. Extremities: No edema. Skin: No rash or ecchymoses. Objective Labs 02/15/25 08:01 02/15/25 05:25 Labs: Laboratory Results - last 24 hr 02/15/25 02/15/25 05:25 08:01 WBC 3.2 L RBC 2.09 L Hgb 6.5 L* D 7.4 L Hct 18.8 L* 21.3 L* MCV 90 MCH 31.1 MCHC 34.6 RDW Std Deviation 52.0 H Plt Count 69 L Neut % (Auto) 40 Lymph % (Auto) 32 [place] % (Auto) 23 H Eos % (Auto) 1 Baso % (Auto) 0 Neut # (Auto) 1.3 L Lymph # (Auto) 1.0 [place] # (Auto) 0.7 Eos # (Auto) 0.0 Baso # (Auto) 0.0 Immature Gran # (Auto) 0.12 H Absolute Nucleated RBC 0.00 Immature Gran % 4 H Nucleated RBC % 0 Smear Path Review Sent to Pathologist Sodium 137 Potassium 3.5 Chloride 104 Carbon Dioxide 20.6 Anion Gap 12 BUN 39 H Creatinine 3.8 H Estim Creat Clear Calc 9.0 L eGFR 11 L* BUN/Creatinine Ratio 10 L Glucose 94 Calculated Osmolality 283 Calcium 7.3 L Corrected Calcium 8.4 L Magnesium 1.5 L Total Bilirubin 0.4 AST 17 ALT < 7 L Alkaline Phosphatase 48 D Total Protein 4.4 L Albumin 2.6 L Globulin 1.8 L Albumin/Globulin Ratio 1.4 Misc Test Result Platelets confirmed ABG Interpretation ABG results: 02/03/25 22:45 VBG pH 7.39 VBG pCO2 31 L VBG pO2 52 VBG Base Excess -5 L Assessment & Plan Assessment and plan (1) History of colon cancer: Status: Inactive (2) Intra-abdominal abscess: Status: Acute (3) Cancer, metastatic: Status: Acute Additional Assessment & Plan Additional Plan: Patient is a 79-year-old female with past medical history of metastatic colon cancer (s/p chemoradiation with CAPOX chemotherapy), colectomy with colostomy in August 2023, CKD stage 3b, insulin-dependent diabetes mellitus with neuropathy, hypertension, hyperlipidemia, and anemia, presenting with a 2-day history of chills, weakness, and subjective fevers. Admitted to telemetry for ESBL bacteremia secondary to UTI. #THOMAS on CKD stage, IIIB #ATN - Patient also received CT with contrast on 02/03/2025. - Bilateral renal US 02/10 showed no hydronephrosis. Age-related changes noted. - FeNa 1.9%, mixed prerenal and intrinsic - Likely ATN iso dehydration from NPO and NG suctioning, as well as imaging with contrast Plan: Off IV fluids. Encourage p.o. water - Monitor daily renal panel - Strict MARCELO's - Encourage oral hydration. - Avoid nephrotoxic drugs - Renally dose medications - Plan for dialysis on Sunday if no improvement in creatinine/GFR. Discussed plan with family at bedside today, agreeable with plan. Patient started to make good urine. Hope there will be renal recovery. Will wait for creatinine tomorrow to decide on dialysis. GFR still remains at 11. Family updated #NAGMA 2/2 diarrhea (improving) #RTA, likely type 1 - Bicarb 20.5 today. - Continue Bicitra 30 ml BID #Hyponatremia (improving) - Sodium 137 Plan: Off IV fluids #E. coli bacteremia #11 cm Pelvic abscess #Urinary tract infection #History of ESBL UTI #Type 2 diabetes mellitus, insulin-dependent #History of neuropathy #Metastatic colon cancer, on chemotherapy #Pulmonary nodular metastatic disease #Rectosigmoid tumor mass #S/p colectomy with colostomy (08/2024) #HTN #HLD - Defer management per primary team (3) Cancer, metastatic Qualifiers: Area of secondary neoplastic involvement: respiratory structure
--- NOTE | 2025-02-15 12:06 | PC.NURSE ---
Pt blood pressure is 159/76 HR is 67. No other symptoms. Called Dr. Arnett and made aware. Pt has nifedipine order to begin tonight. will change order to begin now.
[2025-02-15] MEDS: NIFEdipine XL 30 MG TABCR PO ×2 (12:23→20:50)
--- NOTE | 2025-02-15 14:26 | ESPR_ITS ---
<Statement entered by Otf Peña MD - 02/15/25 16:12> I saw and examined patient personally and supervised PGY 1 resident, Dr. Clements with formulating a management plan. I agree with the documentation with the exceptions as listed below. Patient's urine output improved with 2 L output in past 24 hours. However BUN and creatinine remain unchanged. Resumed home medication nifedipine XL 30 mg p.o. daily. Patient may possibly start hemodialysis on 02/16. Nephrology, Dr Godinez consulted. Appreciate recommendations. Plan of care discussed with Attending Dr. Melquiades Peña MD PGY 2 Disclaimer: This note was dictated by speech recognition. Minor errors in dry heat cabinet attendant may be present due to voice recognition software. Documentation for date of: 02/15/25 Subjective Subjective Interval history: No acute overnight events. Patient seen and examined at bedside with family. Patient has no complaints, denies pain at drainage site or colostomy site. Patient stayed pain-free overnight, eating and tolerating food well. Pt was moved to her bedside chair while having meals by help from nursing. Nursing will try and move the patient up to chair again today to have her meal. PT stationary exercises. Colostomy tube with moderate stool in bag. Patient will have to be discharged on the drain and follow-up outpatient with her surgeon for the removal of the drain. Spoke to the office receptionist at Dr. Overton's office, who offered appointment for February 23 at 945, their earliest availability, which I took. Exam Vital Signs Temp Pulse Resp BP Pulse Ox O2 Del Method O2 Flow Rate 97.3 F 67 18 159/76 H 100 Room Air 5 02/15/25 12:02/15/25 12:23 02/15/25 12:02/15/25 12:23 02/15/25 12:00 02/15/25 12:02/11/25 07:59 Narrative Exam GENERAL: AOx3, no acute distress, elderly HEENT: mucous membranes dry, bilateral sclera anicteric CARDIOVASCULAR: regular rate and rhythm, S1/S2 present, no murmurs appreciated PULMONARY: clear to auscultation bilaterally, no rales/rhonchi/wheezes ABDOMINAL: soft, non-tender, non-distended, no rebound/guarding, bowel sounds present, pelvic drain catheter draining bloody output, insertion site covered, colostomy bag present with yellow clear fluid EXTREMITIES: no peripheral edema SKIN: warm and dry, intact, no rashes NEURO: CN II-XII grossly intact, no focal deficits, alert, following commands Objective Labs 02/15/25 08:01 02/15/25 05:25 Labs: Laboratory Results - last 24 hr 02/15/25 02/15/25 05:25 08:01 WBC 3.2 L RBC 2.09 L Hgb 6.5 L* D 7.4 L Hct 18.8 L* 21.3 L* MCV 90 MCH 31.1 MCHC 34.6 RDW Std Deviation 52.0 H Plt Count 69 L Neut % (Auto) 40 Lymph % (Auto) 32 [place] % (Auto) 23 H Eos % (Auto) 1 Baso % (Auto) 0 Neut # (Auto) 1.3 L Lymph # (Auto) 1.0 [place] # (Auto) 0.7 Eos # (Auto) 0.0 Baso # (Auto) 0.0 Immature Gran # (Auto) 0.12 H Absolute Nucleated RBC 0.00 Immature Gran % 4 H Nucleated RBC % 0 Smear Path Review Sent to Pathologist Sodium 137 Potassium 3.5 Chloride 104 Carbon Dioxide 20.6 Anion Gap 12 BUN 39 H Creatinine 3.8 H Estim Creat Clear Calc 9.0 L eGFR 11 L* BUN/Creatinine Ratio 10 L Glucose 94 Calculated Osmolality 283 Calcium 7.3 L Corrected Calcium 8.4 L Magnesium 1.5 L Total Bilirubin 0.4 AST 17 ALT < 7 L Alkaline Phosphatase 48 D Total Protein 4.4 L Albumin 2.6 L Globulin 1.8 L Albumin/Globulin Ratio 1.4 Misc Test Result Platelets confirmed ABG Interpretation ABG results: 02/03/25 22:45 VBG pH 7.39 VBG pCO2 31 L VBG pO2 52 VBG Base Excess -5 L Quality Measures Quality Measures VTE prophylaxis and none Advance care planning discussed with:: patient Assessment & Plan Assessment Current Active Medications: Generic Name Dose Route Start Last Admin Trade Name Freq PRN Reason Stop Dose Admin Acetaminophen 650 mg 02/04/25 00:06 02/05/25 08:11 Acetaminophen 325 Mg Tablet PO 03/06/25 00:05 650 mg Q6HR PRN Administration PAIN (1-3) OR FEVER > 100.4 Citric Acid/Sodium Citrate 30 ml 02/12/25 09:00 02/15/25 09:33 Citric Acid/Sodium Citr 15 Ml Udc (Bicitra) PO 03/14/25 08:59 30 ml BID MARION Administration Dextrose 50 ml 02/04/25 00:12 Dextrose 50%-Water Inj 50 Ml Syringe IV 03/06/25 00:11 Q15MIN PRN BG <50 OR BG <70 & pt unresponsive Dextrose 25 ml 02/04/25 00:12 Dextrose 50%-Water Inj 50 Ml Syringe IV 03/06/25 00:11 Q15MIN PRN BG 50-70 responsive npo pt Gabapentin 300 mg 02/05/25 09:30 02/15/25 09:33 Gabapentin 300 Mg Capsule PO 03/07/25 09:29 300 mg Q12HR MARION Administration Glucagon 1 mg 02/04/25 00:12 Glucagon Inj 1 Mg Vial IM Q15MIN PRN BG <70, and no IV access Hydromorphone HCl 0.5 mg 02/09/25 16:20 02/09/25 16:42 Hydromorphone Inj 2 Mg/Ml Vial IVP 02/18/25 20:26 0.5 mg Q6H PRN Administration PAIN SCALE 7-10 (Severe Albumin Human 25 gm in 100 mls @ 100 mls/hr 02/14/25 09:45 02/15/25 09:33 Albuminex 25% Ivpb IV 02/17/25 09:44 100 mls/hr BID MARION Administration Sodium Chloride 1,000 mls @ 100 mls/hr 02/14/25 14:16 02/15/25 11:14 Ns IV 03/16/25 14:15 100 mls/hr .Q10H MARION Administration Insulin Human Lispro 0 unit 02/10/25 20:45 02/15/25 12:03 Insulin Lispro (Admelog) 1 Unit/0.01 Ml Unit SC 03/12/25 20:44 Not Given ACHS MARION Protocol Nifedipine 30 mg 02/15/25 12:00 02/15/25 12:23 Nifedipine Xl 30 Mg Tabcr PO 03/17/25 11:59 30 mg HS MARION Administration Ondansetron HCl 4 mg 02/04/25 00:06 02/09/25 16:02 Ondansetron Inj 2 Mg/Ml Inj 2 Ml IVP 03/06/25 00:05 4 mg Q6H PRN Administration NAUSEA OR VOMITING Protocol Pharmacy Consult 1 each 02/09/25 07:38 Pharmacy Renal Dose Adjustment 1 Ea XX 03/11/25 07:37 PRN PRN CONSULT Polyethylene Glycol 34 gm 02/07/25 14:25 02/15/25 09:34 Polyethylene Glycol 17 Gm Packet PO 03/09/25 14:24 34 gm QDAY MARION Administration Sennosides 2 tab 02/08/25 09:00 02/15/25 09:33 Senna/Docusate Sod 1 Tab Tablet PO 03/10/25 08:59 2 tab QDAY MARION Administration Protocol Plan 79-year-old female with history of metastatic colon cancer (s/p chemoradiation with CAPOX chemotherapy), 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 Patient admitted for sepsis secondary to UTI. #Acute Kidney Injury #CKD stage, IIIB #ATN #NAGMA 2/2 diarrhea (improving) #RTA, likely type 1 #Hyponatremia #Hypoalbumenemia Baseline eGFR in high 40s. On admission, creatinine 1.1, baseline 1.2-1.3. BNP elevated 471, euvolemic, elevation likely secondary to CKD as kidneys may not clear BNP efficiently versus age-related changes On 02/08, creatinine 2.0, BUN 37, eGFR 25, BUN/creatinine 19. Elevated kidney function tests most likely due to prerenal azotemia in the setting of recent repeated vomiting and n.p.o. status. On PE, patient demonstrating dry oral mucosa, and skin tenting consistent with dehydration s/p Lactated Ringer's IV 1 L at 250 mL/h 02/08 On 02/09, creatinine kept trending up to 2.6, BUN 44, BUN/Cr 17. On 02/10, creatinine elevated to 3.5, BUN 52, and eGFR 13. FeNa 2.1, indicating intrinsic etiology, likely ATN iso severe dehydration and sepsis. Bicarb on 02/11 noted to be 19, decreased from 21 likely 2/2 renal dysfunction and inability to clear toxins iso sepsis. +Ultrasound of the kidneys showed mild free fluid surrounding the right kidney as well as mild dilatation of the right lower pole calyces, and bilateral renal scar formation. No hydronephrosis present. +Patient likely dehydrated from colostomy losses, and decreased p.o. intake with previous history of nausea and recurrent vomiting. +Repeat ulytes: Na 60.9, K <10, and Cl 49.4; pH 7.5 (after starting on bicitra) +Likely ATN iso dehydration from NPO and NG suctioning, as well as imaging with contrast Plan: ? Nephrology, Dr. Godinez, consulted; appreciate recommendations: Plan for dialysis on Sunday if no improvement in creatinine/GFR. Family in agreement according to nephrology. - continued NS at 100 mL/hr - Albumin 25g bid (02/14 -12/04) - continue on Bicitra 30ml bid - Bed to chair with assistance bid ? Monitor renal function daily ? Encourage oral hydration, small sips of Ensure ? Avoid nephrotoxic drugs and renally dose medications #E. coli bacteremia, ESBL #ESBL Pelvic abscess, s/p drainage catheter placement 02/09 #11 cm Pelvic abscess #Urinary tract infection #History of ESBL UTI Sepsis due to UTI with acute sepsis-related organ dysfunction as evidence by lactic acidosis, 4.8 with repeat 4.0, procalcitonin 47.16 2-day history of chills, weakness, and subjective fevers. Her daughter reports a Tmax of 100.1 WBC 22.2 UA showed WBC 68, leuk esterase positive. Chest x-ray shows early bibasilar pneumonia CT Abdo/pelvis showed bilobed fluid collection in the pelvis 11 cm which projects above the urinary bladder and may represent an abscess versus dilated rectosigmoid colon In ED patient received 2 L of IVF, also received ceftriaxone 1 g, ciprofloxacin 400 mg, metronidazole 500 mg. - Operative report from 09/12/2023 for resection of rectal cancer by Dr Mitchell Reports an oncological resection of the rectum and anus to have been performed successfully. Therefore, the fluid filled sacs as found on CT abdomen and pelvis could not be representing a dilated rectosigmoid colon or have an association with those structures. It's more likely that the patient has an 11cm pelvic abscess. - FUR POLISHER, Dr Velez, was consulted who states that the aformentioned abdominal lesion is unlikely to have a gynecological source. No gynocological intervention is necessary at this time. - General Surgery recommended reaching out to patient's primary surgeon Dr Tien Mitchell at [facility] - Discussed with Dr. Mitchell he recommends that patient undergo IR drainage with drain placement, if patient is stable to be discharged outpatient and follow-up with his office. If patient's condition deteriorates he recommends to inform him and initiate transfer to [facility] - Culture positive for E. coli sensitive to meropenem - Urine cultures drawn on 02/03 during this admission were negative for any growth. Meropenem, which was chosen based on previous urine culture results Pseudomonas resistant to Zosyn, is discontinued and patient is started on Zosyn. - Discontinued meropenem (02/03-02/07) - Abscess culture ESBL, yesterday wound drain output 200 cc, and this morning 40 cc bloody output noted in bag, CTAP showed decreased size of pelvic abscess Plan ?S/P successful CT-guided percutaneous placement of drainage catheter in pelvic abscess and removal of 200 cc grossly purulent fluid. Sent in for culture and sensitivity report. ? Zosyn 02/08 - ?Placed on contact precautions for history of ESBL bacteremia ?Diet to CLD, and carb consistent ? Dilaudid IVP 0.5mg Q6h PRN #Pancytopenia #Thrombocytopenia Platelets decreasing since admission 133 and now 43. Likely iso sepsis, low suspicion for HIT. No overt signs of bleeding. Hgb 6.5 likely a dilutional effect, repeat H&H showed Hgb 7.4. Plan ? Hold heparin for DVT prophylaxis - CTM CBC - Transfuse if hgb <7 #Hyponatremia, resolved Sodium 129, likely secondary to loose watery stools and aggressive LR resuscitation +Repeat ulytes: Na 60.9, K <10, and Cl 49.4; pH 7.5 (after starting on bicitra) +U?osm?estimated as 180, U Na 61; relevant etiologies include hx of pain/nausea/ ESRD? + Na 129 ->130 ->132 ->137 Plan -Nephrology following; appreciate recommendations - started on NS at 100 mL /hour - Avoid correcting more than 6-8mEq within 24 hours, goal 137 #Type 2 diabetes mellitus, insulin-dependent #History of neuropathy Last A1c 5.6 12/04 Takes glargine 10 units subcut every afternoon Plan ? Insulin sliding scale ordered ? 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 Lisa. On chemotherapy treatment. Plan ? Follow-up outpatient #HTN #HLD Lipid panel 11/27: trig 155, cholesterol 90, LDL 43, HDL 16. Takes carvedilol and nifedipine Plan ? Continue to hold antihypertensives #Lactic acidosis, resolved Health Maintenance: Diet: carb consistent GI prophylaxis: Not indicated DVT prophylaxis: Heparin every 12 hours Antibiotics: Meropenem CODE STATUS: Full Disposition: Telemetry This case was discussed with my attending physician, Dr. Arnett, and senior resident, Dr Reeder. Even though this this note was carefully revised there may still be minor errors in dry heat cabinet attendant due to voice recognition software. Jaci Clements DO Internal Medicine PGY-1 Attending Provider Attestation/Addendum I have discussed and was present for the essential components of the history, physical examination, diagnosis, and treatment plan with the resident. I agree with the patient's care as documented by the resident and amended herein by me. Kristian Arnett DO. Although this document has been carefully reviewed, there may still be some phonetic and other typographical errors. These errors are purely grammatical due to imperfections in the software program and should not be construed in any way to compromise the substance of the patient's medical care during this visit.
[2025-02-15 21:33] LABS: Hepatitis A Antibody IgM Non Reactive (Non React); Hepatitis B Core Antibody IgM Non Reactive (Non React); Hepatitis B Surface Antigen Non Reactive (Non React); Hepatitis C Antibody Non Reactive (Non React)
[2025-02-16] VITALS: BP 121/60; PULSE 73; PULSE 78; RESP 18; TEMP 36.8; O2SAT 95
[2025-02-16 04:00] VITALS: BP 120/62; PULSE 83; PULSE 84; RESP 20; TEMP 36.7; O2SAT 96
[2025-02-16 06:00] VITALS: BMI 29.4
[2025-02-16 06:32] LABS: Basophils # (Auto) 0.0 Thou/mm3 (0.0-0.2); Basophils % (Auto) 0 % (0-2.5); Eosinophils # (Auto) 0.0 Thou/mm3 (0.0-0.5); Eosinophils % (Auto) 1 % (0-10); INR 1.3 (0.9-1.3); Immature Granulocytes Auto 0.11 Thou/mm3 (0.00-0.00); Lymphocytes # (Auto) 1.3 Thou/mm3 (1.0-4.8); Lymphocytes % (Auto) 34 % (10-50); Mean Corpuscular HGB Conc 35.1 g/dl (31.0-37.0); Mean Corpuscular Hemoglobin 31.6 pg (25.0-35.0); Mean Corpuscular Volume 90 fL (80-100); Monocytes # (Auto) 1.0 Thou/mm3 (0.0-0.8); Monocytes % (Auto) 26 % (0-12); Neutrophils # (Auto) 1.4 Thou/mm3 (1.8-7.7); Neutrophils % (Auto) 37 % (37-80); Nucleated Red Blood Cell # 0.00 Thou/mm3 (0.00-0.00); Nucleated Red Blood Cell % 0 /100 WBC (0); Partial Thromboplastin Time 35.1 Seconds (22.0-36.0); Platelet Count 96 Thou/mm3 (140-440); Prothrombin Time 13.5 Seconds (9.0-12.2); RDW Standard Deviation 51.2 fL (36.4-46.3); Red Blood Count 2.25 Miln/mm3 (4.00-5.20); White Blood Count 3.8 Thou/mm3 (3.6-11.0)
[2025-02-16 07:06] LABS: Hemoglobin 7.1 g/dL (12.0-16.0)
[2025-02-16 07:09] LABS: Hematocrit 20.2 % (36.0-46.0)
[2025-02-16 07:16] LABS: Alanine Aminotransferase < 7 U/L (10-49); Albumin, Serum 3.1 gm/dL (3.4-4.8); Albumin/Globulin Ratio 1.9 (1.2-2.2); Alkaline Phosphatase 51 U/L (46-116); Anion Gap 12 (7-16); Aspartate Amino Transferase < 8 U/L (0-34); BUN/Creatinine Ratio 9 Ratio (12-20); Bilirubin,Total 0.4 mg/dL (0.3-1.2); Blood Urea Nitrogen 34 mg/dL (9-23); Calcium 7.7 mg/dL (8.3-10.6); Calcium (Corrected) 8.4 mg/dL (8.5-10.1); Carbon Dioxide 20.1 mMol/L (20.0-31.0); Chloride 106 mMol/L (98-107); Creatinine (Component) 3.6 mg/dL (0.6-1.3); Estimated Creatinine Clearance 10.5 mL/min (>60); Globulin 1.6 gm/dL (2.3-3.5); Glucose 99 mg/dL (74-106); Magnesium 1.3 mg/dL (1.6-2.6); Osmolality,Calculated 283 (275-295); Potassium 3.5 mMol/L (3.4-5.1); Sodium 138 mMol/L (136-145); Total Protein 4.7 gm/dL (5.7-8.2); eGFR 12 See Note
[2025-02-16 08:00] VITALS: BP 119/63; PULSE 74; RESP 16; TEMP 36.3; O2SAT 91
[2025-02-16] MEDS: ALBUMIN HUMAN-KJDA 25% IVPB 25 GM/100 ML BTL IV (08:54)
--- NOTE | 2025-02-16 09:06 | ESPR_ITS ---
Documentation for date of: 02/16/25 Subjective Subjective Interval history: Interval history: Ms. Roa is a 79-year-old female with history of metastatic colon cancer (s/p chemoradiation with CAPOX chemotherapy), colectomy with colostomy in August 2023, CKD stage 3b, insulin-dependent diabetes mellitus with neuropathy, hypertension, hyperlipidemia, and anemia, presenting with a 2-day history of chills, weakness, and subjective fevers. Her daughter reports a Tmax of 100.1 today. The patient denies dysuria, hematuria, urinary frequency, nausea, vomiting, or abdominal pain. Patient has a chronic Gorman catheter in place. Patient was previously admitted for complicated ESBL UTI in December 2024 and was treated with levofloxacin. ED course: Initial vitals include T 99.7, BP 139/79, HR 106, RR 18, 97% on room air. Notable labs include WBC 22.2, hemoglobin 10.3, MCV 91, platelets 133, potassium 3.5, bicarb 17.1, BUN 25, creatinine 1.1, lactic acid 4.8 with repeat 4.0, glucose 186, magnesium 1.3, T. bili 0.5, LFTs mildly elevated with AST 117, ALT 56, alk phos 157, lactate dehydrogenase 344, albumin 3.2, Pro-[place] 47.16. UA showed WBC 68, leuk esterase positive. CT Abdo/pelvis showed bilobed fluid collection in the pelvis 11 cm which projects above the urinary bladder and may represent an abscess versus dilated rectosigmoid colon Past medical history: As stated above. Past surgical history: Colectomy with colostomy (08/2023), cholecystectomy (2019) Allergies: NKDA. Family history: Father diabetes, no family history of cancer Social history: Denies alcohol use, smoking, or illicit drug use. Patient was admitted to telemetry for ESBL bacteremia secondary to UTI. Nephrology consulted for worsening THOMAS on CKD stage 3b since 02/08. 02/10/25: Patient seen and assessed with family at bedside. Telephone carbon cutter used for English translation. No complaints this morning. Per chart review, NG tube placed and made NPO on 02/07 due to concern for ileus. clamped on 02/09 and plan to remove today per primary team. This morning at bedside, gorman draining light urine but decreased output of 350 cc over past 24 hours (ideally 600cc/24hrs). Colostomy bag at left lower quadrant draining copious amounts of green loose stool. Creatinine 3.5 (from 2.6). Sodium slowly increasing, 145 today. GFR worsening, 13 today. She was just restarted on oral diet yesterday but appears to have poor oral intake. Had CT A/P with contrast twice since admission. Received IVF since 02/08, given another bolus IV LR 1L today. Encouraged oral hydration with water. Continue IV fluids, does not need dialysis at this time. Will re-evaluate urine output and renal panel tomorrow. 02/11/25: Patient seen and assessed at bedside with family. Telephone carbon cutter used for English translation. No complaints this morning. Received 1.2 L IVF yesterday but urine output continues to be decreased (200 cc overnight via Gorman + ~50cc at bedside). Urine output appears more clear. Noted ~600 cc liquidy stool in colostomy bag. Potassium stable at 4.1. BUN 49, creatinine 3.8. Continue IVF. Bicarb decreased to 19.7 with anion gap elevated at 15.6 with corrected albumin, likely secondary to loose stools. Continue IVF at 80 mL/hr, still no need for dialysis. 02/12/25: Patient seen and assessed at bedside with family. No complaints this morning. Urine output improved (320 cc), continues to appear clear, still no need for dialysis at this time. Sodium 129, chloride 99, discontinued LR and started on NS maintenance fluid. Bicarbonate 19.1, likely GI loss via loose watery stools. Start on Bicitra. 02/13/25: Patient seen and assessed at bedside with family present. No complaints this morning. Urine pale and clear, output continues to improve (1.2 L overnight). Sodium 130, bicarb improved to 20.5, Cr stable at 3.8. Patient is medically stable for discharge from renal standpoint, send home with sodium bicarb 325mg BID. Follow up in clinic in 1 week with renal panel. 02/14/25: Patient seen and assessed at bedside with family present. English translation provided by in-house hypoid gear tester. Feeling well. Sodium 132, improving, continue NS. Bicarb 22.1, continue Bicitra. Creatinine 4.0, worsening despite good urine output (1.8L overnight). GFR 11. Continue IV NS maintenance. Ordered PPD and hep panel in anticipation for possible dialysis. Had in depth discussion with family that patient may require dialysis temporarily if GFR does not improve by Sunday. 02/15/2025 patient seen and examined with the help of storage solutions architect. Blood pressure 122/70, heart rate 68. No acute event. Hemoglobin 7.4, WBC 3.2, platelets 69. Sodium 137, potassium 3.5, creatinine 3.8, GFR 11, calcium 8.4, magnesium 1.5 which was replaced, albumin 2.6. Patient made 1900 cc of urine. BUN and creatinine tad better. On IV albumin. Avoid nephrotoxics. 02/16/25: Patient seen and examined at bedside with family present, storage solutions architect utilized. UOP 1.9L overnight. Sodium 138, potassium 3.5, chloride 106, BUN 34, creatinine 3.6, GFR 12, calcium 8.4, magnesium 1.3 (repleted). No need for dialysis as patient's GFR and creatinine showing signs of improvement. Patient is medically stable for discharge from nephrology standpoint, follow up in clinic within 1-2 weeks of discharge with labs. Exam Vital Signs Temp Pulse Resp BP Pulse Ox O2 Del Method O2 Flow Rate 97.3 F 74 16 119/63 91 L Room Air 5 02/16/25 08:00 02/16/25 08:00 02/16/25 08:00 02/16/25 08:00 02/16/25 08:00 02/16/25 08:00 02/11/25 07:59 Narrative Exam Physical Exam General: English speaking, cachetic elderly lady. Awake and in no acute distress. Conversational. HEENT: Normocephalic, atraumatic, mucous membranes Heart: Regular rate and rhythm, normal S1 and S2, no murmurs appreciated. Lungs: Clear to auscultation bilaterally. Abdomen: Soft, nondistended, nontender, positive bowel sounds. No guarding or rebound tenderness. Colostomy on left lower abdomen. Pelvic percutaneous drainage catheter in place. Neurologic: Alert and oriented x3, no gross neurological deficit, and patient able to move all 4 extremities. Extremities: No edema. Skin: No rash or ecchymoses. Objective Labs 02/16/25 14:59 02/16/25 05:45 Labs: Laboratory Results - last 24 hr 02/14/25 02/16/25 04:40 05:45 WBC 3.8 RBC 2.25 L Hgb 7.1 L Hct 20.2 L* MCV 90 MCH 31.6 MCHC 35.1 RDW Std Deviation 51.2 H Plt Count 96 L D Neut % (Auto) 37 Lymph % (Auto) 34 [place] % (Auto) 26 H Eos % (Auto) 1 Baso % (Auto) 0 Neut # (Auto) 1.4 L Lymph # (Auto) 1.3 [place] # (Auto) 1.0 H Eos # (Auto) 0.0 Baso # (Auto) 0.0 Immature Gran # (Auto) 0.11 H Absolute Nucleated RBC 0.00 Immature Gran % 3 H Nucleated RBC % 0 PT 13.5 H INR 1.3 APTT 35.1 Sodium 138 Potassium 3.5 Chloride 106 Carbon Dioxide 20.1 Anion Gap 12 BUN 34 H Creatinine 3.6 H Estim Creat Clear Calc 10.5 L eGFR 12 L* BUN/Creatinine Ratio 9 L Glucose 99 Calculated Osmolality 283 Calcium 7.7 L Corrected Calcium 8.4 L Magnesium 1.3 L Total Bilirubin 0.4 AST < 8 ALT < 7 L Alkaline Phosphatase 51 Total Protein 4.7 L Albumin 3.1 L D Globulin 1.6 L Albumin/Globulin Ratio 1.9 Hepatitis A IgM Ab Non Reactive Hep Bs Antigen Non Reactive Hep B Core IgM Ab Non Reactive Hepatitis C Antibody Non Reactive ABG Interpretation ABG results: 02/03/25 22:45 VBG pH 7.39 VBG pCO2 31 L VBG pO2 52 VBG Base Excess -5 L Quality Measures Quality Measures VTE prophylaxis and none Advance care planning discussed with:: patient Assessment & Plan Assessment Current Active Medications: Generic Name Dose Route Start Last Admin Trade Name Freq PRN Reason Stop Dose Admin Acetaminophen 650 mg 02/04/25 00:06 02/05/25 08:11 Acetaminophen 325 Mg Tablet PO 03/06/25 00:05 650 mg Q6HR PRN Administration PAIN (1-3) OR FEVER > 100.4 Citric Acid/Sodium Citrate 30 ml 02/12/25 09:00 02/15/25 20:49 Citric Acid/Sodium Citr 15 Ml Udc (Bicitra) PO 03/14/25 08:59 30 ml BID MARION Administration Dextrose 50 ml 02/04/25 00:12 Dextrose 50%-Water Inj 50 Ml Syringe IV 03/06/25 00:11 Q15MIN PRN BG <50 OR BG <70 & pt unresponsive Dextrose 25 ml 02/04/25 00:12 Dextrose 50%-Water Inj 50 Ml Syringe IV 03/06/25 00:11 Q15MIN PRN BG 50-70 responsive npo pt Gabapentin 300 mg 02/05/25 09:30 02/15/25 20:50 Gabapentin 300 Mg Capsule PO 03/07/25 09:29 300 mg Q12HR MARION Administration Glucagon 1 mg 02/04/25 00:12 Glucagon Inj 1 Mg Vial IM Q15MIN PRN BG <70, and no IV access Hydromorphone HCl 0.5 mg 02/09/25 16:20 02/09/25 16:42 Hydromorphone Inj 2 Mg/Ml Vial IVP 02/18/25 20:26 0.5 mg Q6H PRN Administration PAIN SCALE 7-10 (Severe Albumin Human 25 gm in 100 mls @ 100 mls/hr 02/14/25 09:45 02/16/25 08:54 Albuminex 25% Ivpb IV 02/17/25 09:44 100 mls/hr BID MARION Administration Magnesium Sulfate 2 gm in 50 mls @ 25 mls/hr 02/16/25 08:54 Magnesium Sulfate Ivpb IV 02/16/25 10:53 X1 ONE Insulin Human Lispro 0 unit 02/10/25 20:45 02/15/25 20:35 Insulin Lispro (Admelog) 1 Unit/0.01 Ml Unit SC 03/12/25 20:44 Not Given ACHS MARION Protocol Nifedipine 30 mg 02/15/25 12:00 02/15/25 20:50 Nifedipine Xl 30 Mg Tabcr PO 03/17/25 11:59 30 mg HS MARION Administration Ondansetron HCl 4 mg 02/04/25 00:06 02/09/25 16:02 Ondansetron Inj 2 Mg/Ml Inj 2 Ml IVP 03/06/25 00:05 4 mg Q6H PRN Administration NAUSEA OR VOMITING Protocol Pharmacy Consult 1 each 02/09/25 07:38 Pharmacy Renal Dose Adjustment 1 Ea XX 03/11/25 07:37 PRN PRN CONSULT Polyethylene Glycol 34 gm 02/07/25 14:25 02/15/25 09:34 Polyethylene Glycol 17 Gm Packet PO 03/09/25 14:24 34 gm QDAY MARION Administration Sennosides 2 tab 02/08/25 09:00 02/15/25 09:33 Senna/Docusate Sod 1 Tab Tablet PO 03/10/25 08:59 2 tab QDAY MARION Administration Protocol Plan Patient is a 79-year-old female with past medical history of metastatic colon cancer (s/p chemoradiation with CAPOX chemotherapy), colectomy with colostomy in August 2023, CKD stage 3b, insulin-dependent diabetes mellitus with neuropathy, hypertension, hyperlipidemia, and anemia, presenting with a 2-day history of chills, weakness, and subjective fevers. Admitted to telemetry for ESBL bacteremia secondary to UTI. #THOMAS on CKD stage, IIIB #ATN - Patient also received CT with contrast on 02/03/2025. - Bilateral renal US 02/10 showed no hydronephrosis. Age-related changes noted. - FeNa 1.9%, mixed prerenal and intrinsic - Likely ATN iso dehydration from NPO and NG suctioning, as well as imaging with contrast Plan: - Discontinue IVF - Encourage oral hydration - Monitor daily renal panel - Strict MARCELO's - Avoid nephrotoxic drugs - Renally dose medications - No need for dialysis as patient's creatinine and GFR are showing signs of improvement. Notified patient and family at bedside today. From nephrology standpoint, patient is medically clear for discharge. Instructed to follow up in clinic in 1-2 weeks after discharge with renal panel. 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 Stable in 20s on Bicitra. - Serum anion gap with albumin correction 14.9 - Urine electrolytes: Na 62.8, Cr 81, K 54, Cl 41.8; pH 6.5 (02/10/25) - Repeat ulytes: Na 60.9, K <10, and Cl 49.4; pH 7.5 (after starting on bicitra) - Urine anion gap 20.5 suggesting possible component of RTA as well, likely type 1 based on urine pH Plan: - Continue Bicitra 30 ml BID #Hyponatremia (resolved) #E. 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 Godinez. Radha Clatyon DO, PGY-1 Attending Provider Attestation/Addendum Patient currently seen and examined with resident physician Dr. Clayton. Note reviewed, agree with findings and recommendations. Patient currently seen in telemetry. daughter at bedside. storage solutions architect helped with interpretation. Clinically patient looks rather euvolemic . Has colostomy losses. Was given fluids for 3 days. Creatinine stabilized at 3.8. Urine seems to be very clear and had 1.2 L of urinary output. Suspect patient currently in ischemic ATN and hopefully will recover in the next 1 to 2 weeks. Patient also received CT with contrast on 02/03/2025. Renal ultrasound showed no hydronephrosis. Age-related changes in the renal ultrasound noted. Will monitor urine output, creatinine closely. Potassium seems to be acceptable. Urine output markedly improved to more than 2 L. Creatinine improved from 4-3.6. No need for dialysis. Hold off on dialysis. Renal krishnan stable for discharge to rehab. Patient needs renal panel checked in 1 week. I will see her in 1 week. Care discussed with the daughter who agreed. Daughter very happy. Plan of care discussed with primary team
--- NOTE | 2025-02-16 09:54 | PD.RESPRO ---
Documentation for date of: 02/16/25 Exam Vital Signs Temp Pulse Resp BP Pulse Ox O2 Del Method O2 Flow Rate 97.3 F 74 16 119/63 91 L Room Air 5 02/16/25 08:00 02/16/25 08:00 02/16/25 08:00 02/16/25 08:00 02/16/25 08:00 02/16/25 08:00 02/11/25 07:59 Objective Labs 02/16/25 05:45 02/16/25 05:45 Labs: Laboratory Results - last 24 hr 02/14/25 02/16/25 04:40 05:45 WBC 3.8 RBC 2.25 L Hgb 7.1 L Hct 20.2 L* MCV 90 MCH 31.6 MCHC 35.1 RDW Std Deviation 51.2 H Plt Count 96 L D Neut % (Auto) 37 Lymph % (Auto) 34 [place] % (Auto) 26 H Eos % (Auto) 1 Baso % (Auto) 0 Neut # (Auto) 1.4 L Lymph # (Auto) 1.3 [place] # (Auto) 1.0 H Eos # (Auto) 0.0 Baso # (Auto) 0.0 Immature Gran # (Auto) 0.11 H Absolute Nucleated RBC 0.00 Immature Gran % 3 H Nucleated RBC % 0 PT 13.5 H INR 1.3 APTT 35.1 Sodium 138 Potassium 3.5 Chloride 106 Carbon Dioxide 20.1 Anion Gap 12 BUN 34 H Creatinine 3.6 H Estim Creat Clear Calc 10.5 L eGFR 12 L* BUN/Creatinine Ratio 9 L Glucose 99 Calculated Osmolality 283 Calcium 7.7 L Corrected Calcium 8.4 L Magnesium 1.3 L Total Bilirubin 0.4 AST < 8 ALT < 7 L Alkaline Phosphatase 51 Total Protein 4.7 L Albumin 3.1 L D Globulin 1.6 L Albumin/Globulin Ratio 1.9 Hepatitis A IgM Ab Non Reactive Hep Bs Antigen Non Reactive Hep B Core IgM Ab Non Reactive Hepatitis C Antibody Non Reactive ABG Interpretation ABG results: 02/03/25 22:45 VBG pH 7.39 VBG pCO2 31 L VBG pO2 52 VBG Base Excess -5 L Quality Measures Quality Measures VTE prophylaxis and none Assessment & Plan Assessment Current Active Medications: Generic Name Dose Route Start Last Admin Trade Name Freq PRN Reason Stop Dose Admin Acetaminophen 650 mg 02/04/25 00:06 02/05/25 08:11 Acetaminophen 325 Mg Tablet PO 03/06/25 00:05 650 mg Q6HR PRN Administration PAIN (1-3) OR FEVER > 100.4 Citric Acid/Sodium Citrate 30 ml 02/12/25 09:00 02/15/25 20:49 Citric Acid/Sodium Citr 15 Ml Udc (Bicitra) PO 03/14/25 08:59 30 ml BID MARION Administration Dextrose 50 ml 02/04/25 00:12 Dextrose 50%-Water Inj 50 Ml Syringe IV 03/06/25 00:11 Q15MIN PRN BG <50 OR BG <70 & pt unresponsive Dextrose 25 ml 02/04/25 00:12 Dextrose 50%-Water Inj 50 Ml Syringe IV 03/06/25 00:11 Q15MIN PRN BG 50-70 responsive npo pt Gabapentin 300 mg 02/05/25 09:30 02/15/25 20:50 Gabapentin 300 Mg Capsule PO 03/07/25 09:29 300 mg Q12HR MARION Administration Glucagon 1 mg 02/04/25 00:12 Glucagon Inj 1 Mg Vial IM Q15MIN PRN BG <70, and no IV access Hydromorphone HCl 0.5 mg 02/09/25 16:20 02/09/25 16:42 Hydromorphone Inj 2 Mg/Ml Vial IVP 02/18/25 20:26 0.5 mg Q6H PRN Administration PAIN SCALE 7-10 (Severe Albumin Human 25 gm in 100 mls @ 100 mls/hr 02/14/25 09:45 02/16/25 08:54 Albuminex 25% Ivpb IV 02/17/25 09:44 100 mls/hr BID MARION Administration Magnesium Sulfate 2 gm in 50 mls @ 25 mls/hr 02/16/25 08:54 Magnesium Sulfate Ivpb IV 02/16/25 10:53 X1 ONE Insulin Human Lispro 0 unit 02/10/25 20:45 02/15/25 20:35 Insulin Lispro (Admelog) 1 Unit/0.01 Ml Unit SC 03/12/25 20:44 Not Given ACHS MARION Protocol Nifedipine 30 mg 02/15/25 12:00 02/15/25 20:50 Nifedipine Xl 30 Mg Tabcr PO 03/17/25 11:59 30 mg HS MARION Administration Ondansetron HCl 4 mg 02/04/25 00:06 02/09/25 16:02 Ondansetron Inj 2 Mg/Ml Inj 2 Ml IVP 03/06/25 00:05 4 mg Q6H PRN Administration NAUSEA OR VOMITING Protocol Pharmacy Consult 1 each 02/09/25 07:38 Pharmacy Renal Dose Adjustment 1 Ea XX 03/11/25 07:37 PRN PRN CONSULT Polyethylene Glycol 34 gm 02/07/25 14:25 02/15/25 09:34 Polyethylene Glycol 17 Gm Packet PO 03/09/25 14:24 34 gm QDAY MARION Administration Sennosides 2 tab 02/08/25 09:00 02/15/25 09:33 Senna/Docusate Sod 1 Tab Tablet PO 03/10/25 08:59 2 tab QDAY MARION Administration Protocol
[2025-02-16] MEDS: POTASSIUM CHLORIDE 10% 20 MEQ/15 ML UDC PO (10:25)
[2025-02-16] MEDS: POLYETHYLENE GLYCOL 17 GM PACKET 34 GM PO (10:25)
[2025-02-16] MEDS: CITRIC ACID/SODIUM CITR 15 ML UDC (BICITRA) 30 ML PO (10:25)
[2025-02-16] MEDS: Magnesium Sulfate 2 GM Ivpb 2 GM/50 ML BAG IV (10:25)
[2025-02-16] MEDS: CALCIUM CARBONATE 600 MG TABLET PO (10:25)
[2025-02-16] MEDS: GABAPENTIN 300 MG CAPSULE PO (10:25)
[2025-02-16] MEDS: SENNA/DOCUSATE SOD 1 TAB TABLET 2 TAB PO (10:26)
[2025-02-16 11:52] VITALS: PULSE 76
[2025-02-16 12:00] VITALS: BP 111/61; PULSE 80; RESP 17; TEMP 36.7; O2SAT 98
--- NOTE | 2025-02-16 13:43 | PC.SS ---
Follow up note: Pt does not require out patient dialysis and will return home upon d.c
[2025-02-16 15:15] LABS: Hematocrit 23.3 % (36.0-46.0)
[2025-02-16 15:19] LABS: Hemoglobin 8.2 g/dL (12.0-16.0)
--- NOTE | 2025-02-16 16:16 | ESDS_ITS ---
<Statement entered by Otf Peña MD - 02/16/25 16:18> I saw and examined patient personally and supervised PGY 1 resident, Dr. Clements with formulating a discharge plan. I agree with the documentation as listed below. Plan of care discussed with Attending Dr. Melquiades Peña MD PGY 2 Disclaimer: This note was dictated by speech recognition. Minor errors in supervisor finish end may be present due to voice recognition software. Planned Discharge Date 02/16/25 DS: Providers Provider Date of admission: 02/04/25 00:06 Primary care physician: Radha Cristobal PA-C Admitting Provider: Ct Dumont MD Attending Provider on Admission: Claus Arnett DO Consults: 02/04/25 09:21 Consult to General Surgery Stat Comment: Pelvic Abscess Consulting Provider: Elio Moreno 02/04/25 14:59 Consult to Gynecology Stat Comment: Pelvic Abscess Consulting Provider: Agustin ([facility])Tamara 02/06/25 10:08 Referral Physical Therapy Routine Comment: Physician Instructions: 02/07/25 09:16 Referral Speech Therapy Urgent Comment: 02/08/25 10:18 Referral Physical Therapy Routine Comment: Physician Instructions: 02/10/25 08:12 Consult to Nephrology Routine Comment: Consulting Provider: Rosaura Godinez Attending Provider on DC: Claus Arnett DO Discharging Provider: Jaci Clements DO DS: Diagnosis Problem List Completed Was Problem List Reviewed/Reconciled?: Yes Hospital Course Hospital Course Hospital course: Interval history: Ms. Roa is a 79-year-old female with history of metastatic colon cancer (s/p chemoradiation with CAPOX chemotherapy), colectomy with colostomy in August 2023, CKD stage 3b, insulin-dependent diabetes mellitus with neuropathy, hypertension, hyperlipidemia, and anemia, who presented on 02/04/2025 with complaint of chills, weakness, and subjective fevers with PE 100.1. Patient was admitted for sepsis secondary to UTI with acute sepsis related organ dysfunction as evidenced by lactic acidosis, 4.8, and procalcitonin 47.16. WBC 22.2. UA showed WBC 68, leukocyte esterase positive. CXR showed early bibasilar pneumonia. CT abdomen and pelvis showed bilobed fluid collection in the pelvis 11 cm which projects above the urinary bladder and may represent an abscess versus dilated rectosigmoid colon. An inquiry into patient's medical history, revealed an operative report from 09/12/2023 for resection of rectal cancer by Dr Mitchell reporting an oncological resection of the rectum and anus to have been performed successfully. Therefor e, the fluid filled sac as found on CT abdomen was more likely to be representing an 11 cm pelvic abscess. MEDICAL CENTER DIRECTOR consulted who recommended no gynecological intervention as the aforementioned abdominal lesion was unlikely to have a gynecological source. Patient was recommended by Dr Mitchell to undergo IR drainage with drain placement, to be discharged outpatient and follow-up with his office. Patient started on meropenem in the light of previous urine culture results Pseudomonas resistant to Zosyn, however when urine cultures came back negative for any growth and abscess cultures grew ESBL patient switched back to to Zosyn on 02/08 on which she remained daily until her discharge on 02/16. [address]-guided percutaneous placement of drainage catheter in pelvic abscess and immediate removal of 200 cc grossly purulent fluid on 02/09/2025. She remained afebrile postprocedure and the drain removed about 400 cc additional hemopurulent fluid through the ensuing week. Patient creatinine on admission 1.1, on 02/08, CR 2.0, eGFR 25, and on 02/09 Cr 2.6, BUN 44. Nephrology was consulted who started patient on IV normal saline maintenance fluids at 65, 75, and later to 100 mL/h with daily weight-based boluses. Female at 2.1, indicating intrinsic etiology, likely ATN in the setting of sepsis, severe dehydration from colostomy losses with previous history of nausea and recurrent vomiting, decreased p.o. intake, but also contrast-induced nephropathy. Ultrasound of the kidneys showed mild free fluid surrounding the right kidney as well as mild dilatation of the right lower pole calyces, and bilateral renal scar formation. No hydronephrosis present. Patient stayed in oliguric phase for a few days with incremental increases in creatinine to 4.0, peak, before trending down to 3.8, and 3.6 at the point of discharge. Patient on second phase of THOMAS with polyuria with outputs of more than 2L at the time of discharge. WBC normalized to 3.8. Colostomy bag shows minimal red blood, Hgb stable at 8.2, patient recommended to follow up with her surgeon given the proximity of the appointment. At the time of discharge, patient is medically stable and deemed safe to return to his/her previous state of living. Admission diagnoses: #Acute Kidney Injury #CKD stage, IIIB #ATN #NAGMA 2/2 diarrhea (improving) #RTA, likely type 1 #Hyponatremia #Hypoalbumenemia #E. 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 Please follow-up with sap specialist Dr. Godinez on 02/18/2025 Please follow-up with your general surgeon for tube removal on 02/23/2025 at [facility], at 9:45 AM. Also follow-up with the surgeon for colostomy care. You have been started on: -Polyethylene glycol 17 g powder daily as needed for constipation We have held your carvedilol 3.125 mg tablets twice daily until you see your nursing program chair or PCP Start on insulin glargine 10 units at night only after your random blood sugar level is greater than 150-160. Continue taking all other medicines as prescribed - Follow up with your primary care physician within 1 week of discharge. If you do not have a primary care physician, please follow up with the [facility] Residents clinic ([phone]) ? If you experience any new, worsening or persistent symptoms either call your primary doctor, or dial 911 or present to the emergency department. This case was discussed with my attending physician, Dr. Arnett, and senior resident, Dr Peña. Even though this this note was carefully revised there may still be minor errors in supervisor finish end due to voice recognition software. Jaci Clements, PGY I Time Spent with Patient Time attestation: Total time spent providing and/or coordinating discharge services: More than 50% of the patient's total hospital stay Time spent: Greater than 30 minutes Exam Vital Signs Temp Pulse Resp BP Pulse Ox O2 Del Method O2 Flow Rate 98.0 F 80 17 111/61 98 Room Air 5 02/16/25 12:00 02/16/25 12:02/16/25 12:02/16/25 12:02/16/25 12:02/16/25 12:02/11/25 07:59 Narrative Exam GENERAL: AOx3, no acute distress, elderly HEENT: mucous membranes dry, bilateral sclera anicteric CARDIOVASCULAR: regular rate and rhythm, S1/S2 present, no murmurs appreciated PULMONARY: clear to auscultation bilaterally, no rales/rhonchi/wheezes ABDOMINAL: soft, non-tender, non-distended, no rebound/guarding, bowel sounds present, pelvic drain catheter draining bloody output, insertion site covered, colostomy bag present with yellow clear fluid and minimal bright red blood. Drainage cath from the intraabdominal abscess does not show any sign of opening dehiscence, purulence, or expanding erythema/warmth from the point of entry, and minimal hemopurulent fluid inside the collection bag. EXTREMITIES: no peripheral edema SKIN: warm and dry, intact, no rashes NEURO: CN II-XII grossly intact, no focal deficits, alert, following commands Discharge Plan Plan Patient Disposition: Home w/HOME HEALTH Patient condition on transfer: Stable Care Plan Goals: Please follow-up with your PCP within 1 week of discharge, and request for CBC and Renal panel blood work. Please follow-up with sap specialist Dr. Godinez on 02/18/2025 Please follow-up with your general surgeon for tube removal on 02/23/2025 at [facility], at 9:45 AM. You have been started on: -Polyethylene glycol 17 g powder daily as needed for constipation We have held your carvedilol 3.125 mg tablets twice daily until you see your nursing program chair or PCP Start on insulin glargine 10 units at night only after your random blood sugar level is greater than 150-160. Continue taking all other medicines as prescribed - Follow up with your primary care physician within 1 week of discharge. If you do not have a primary care physician, please follow up with the [facility] Residents clinic ([phone]) ? If you experience any new, worsening or persistent symptoms either call your primary doctor, or dial 911 or present to the emergency department. Por favor, consulte con singh m?dico de cabecera dentro de la semana posterior al maya y solicite un an?lisis de raul completo y un panel renal. Por favor, consulte con el nefr?logo Dr. Godinez el 02/18/2025. Por favor, consulte con singh cirujano general para la extracci?n del tubo el 02/23/2025 en [facility], a las 9:45 AM. Se le hernandez recetado lo siguiente: - Polietilenglicol en polvo de 17 g al d?a seg?n sea necesario para el estre?imiento. Hemos suspendido kirill comprimidos de carvedilol de 3.125 mg dos veces al d?a hasta que samia a singh cardi?logo o m?dico de cabecera. Comience con insulina glargina 10 unidades por la noche solo si singh nivel de glucosa en raul aleatorio es superior a 150-160. Contin?e tomando todos los dem?s medicamentos seg?n lo recetado. - Consulte con singh m?dico de cabecera dentro de la semana posterior al maya. Si no tiene un m?dico de cabecera, por favor, consulte con la cl?jay de residentes de [facility] ([phone]). - Si experimenta alg?n s?ntoma nuevo, que empeore o persista, llame a singh m?dico de cabecera, nirmala el 911 o acuda al servicio de urgencias. Prescriptions/Referrals Prescriptions/Med Rec: New polyethylene glycol 3350 [HealthyLax] 17 gram Powder In Packet 34 g PO QDAY 10 Days Qty: 10 0RF Continued nifedipine 30 mg tablet extended release 30 mg PO HS gabapentin 300 mg capsule 300 mg PO Q12H ferrous sulfate [FeroSul] 325 mg (65 mg iron) tablet 325 mg PO QDAY Held carvedilol 3.125 mg tablet 3.125 mg PO BID Hold Instructions: Resume on 02/23/25. Until you see your Cardiology or PCP. insulin glargine [Basaglar KwikPen U-100 Insulin] 100 unit/mL (3 mL) insulin pen 10 unit subcut QPM Hold Instructions: Resume on 02/19/25. Until you are random blood sugar level is greater than 160. Referrals: Radha Cristobal PA-C [Primary Care Provider, Emergency Medicine] Patient/Caregiver Discharge Instructions Discharge Activity: activity as tolerated Other Discharge Activity Instructions:: Please follow-up with your PCP within 1 week of discharge, and request for CBC and Renal panel blood work. Please follow-up with sap specialist Dr. Godinez on 02/18/2025 Please follow-up with your general surgeon for tube removal on 02/23/2025 at [facility], at 9:45 AM. You have been started on: -Polyethylene glycol 17 g powder daily as needed for constipation We have held your carvedilol 3.125 mg tablets twice daily until you see your nursing program chair or PCP Start on insulin glargine 10 units at night only after your random blood sugar level is greater than 150-160. Continue taking all other medicines as prescribed - Follow up with your primary care physician within 1 week of discharge. If you do not have a primary care physician, please follow up with the [facility] Residents clinic ([phone]) ? If you experience any new, worsening or persistent symptoms either call your primary doctor, or dial 911 or present to the emergency department. Education Materials: Acute Kidney Failure Dc Print Language: French Activity Restrictions/Additional Instructions: renal panel on Next sunday f/u with Dr. Godinez on sunday02/18/2025 Please call [phone] for appt. Stand Alone Forms: Lily Award Info., Patient Portal Info Letter Discharge Order Discharge Orders: Discharge (Routine); Ordered 02/16/25 Ordered By: Otf Peña Quality Discharge Quality Measures VTE prophylaxis Attestestation Attestation I have discussed and was present for the essential components of the discharge history, physical examination, diagnosis, and discharge treatment plan with the resident. I agree with the patient's discharge care as documented by the resident and amended herein by me. Kristian Arnett DO. The patient understood all discharge instructions, all questions were answered satisfactorily. The patient was instructed to return to the Emergency Department is symptoms worsened or persisted.Patient was stable, afebrile, tolerating p.o. intake and able to get up to chair at time of discharge home. Patient will be discharged with abdominal drain, will follow-up with her surgeon on 23 February for further evaluation. Renal function has improved, creatinine down trended to 3.6 today, cleared for discharge by nephrology. Although this document has been carefully reviewed, there may still be some phonetic and other typographical errors. These errors are purely grammatical due to imperfections in the software program and should not be construed in any way to compromise the substance of the patient's medical care during this visit.
--- NOTE | 2025-02-16 16:38 | PC.NURSE ---
pt's amy asked for the gorman to be changed out, received order to do so, amy says they use a 12 Fr, unable to get urine return
--- NOTE | 2025-02-16 16:56 | PD.RESCONSUL ---
HPI Data of Consult Requesting Physician: Claus Arnett DO Admitting Provider: Ct Dumont MD Attending Provider: Claus Arnett DO Primary Care Provider: Radha Cristobal PA-C Consult Narrative cc:: cc: Claus Arnett DO Exam Vital Signs Temp Pulse Resp BP Pulse Ox O2 Del Method O2 Flow Rate 98.0 F 80 17 111/61 98 Room Air 5 02/16/25 12:00 02/16/25 12:00 02/16/25 12:00 02/16/25 12:00 02/16/25 12:00 02/16/25 12:00 02/11/25 07:59 Results Labs 02/16/25 14:59 02/16/25 05:45 Labs: Short CBC 02/16/25 02/16/25 Range/Units 05:45 14:59 WBC 3.8 (3.6-11.0) Thou/mm3 Hgb 7.1 L 8.2 L (12.0-16.0) g/dL Hct 20.2 L* 23.3 L (36.0-46.0) % Plt Count 96 L D (140-440) Thou/mm3 BMP 02/16/25 05:45 Sodium 138 Potassium 3.5 Chloride 106 Carbon Dioxide 20.1 BUN 34 H Creatinine 3.6 H Glucose 99 Calcium 7.7 L Liver Function 02/16/25 Range/Units 05:45 Total Bilirubin 0.4 (0.3-1.2) mg/dL AST < 8 (0-34) U/L ALT < 7 L (10-49) U/L Alkaline Phosphatase 51 (46-116) U/L Albumin 3.1 L D (3.4-4.8) gm/dL ABG Interpretation ABG results: 02/03/25 22:45 VBG pH 7.39 VBG pCO2 31 L VBG pO2 52 VBG Base Excess -5 L Quality Measures Quality Measures VTE prophylaxis and none Medications Home Medications and Allergies Home Medications ?Medication ?Instructions ?Recorded ?Confirmed ?Type carvedilol 3.125 mg tablet 3.125 mg PO BID 10/22/24 02/04/25 History Held on 02/16/25. Instructions: Resume on 02/23/25. Until you see your Cardiology or PCP. gabapentin 300 mg capsule 300 mg PO Q12H 10/22/24 02/04/25 History nifedipine 30 mg tablet,extended 30 mg PO HS 10/22/24 02/04/25 History release insulin glargine 100 unit/mL (3 10 unit subcut QPM 11/26/24 02/04/25 History mL) subcutaneous pen (Basaglar KwikPen U-100 Insulin) Held on 02/16/25. Instructions: Resume on 02/19/25. Until you are random blood sugar level is greater than 160. ferrous sulfate 325 mg (65 mg 325 mg PO QDAY 02/04/25 02/04/25 History iron) tablet (FeroSul) Allergies Allergy/AdvReac Type Severity Reaction Status Date / Time No Known Allergies Allergy Verified 02/09/25 13:19 Visit Medications Acetaminophen (Acetaminophen 325 Mg Tablet) 650 mg PO Q6HR PRN PRN Reason: PAIN (1-3) OR FEVER > 100.4 Stop: 03/06/25 00:05 Last Admin: 02/05/25 08:11 Dose: 650 mg Citric Acid/Sodium Citrate (Citric Acid/Sodium Citr 15 Ml Udc (Bicitra)) 30 ml PO BID [facility] Stop: 03/14/25 08:59 Last Admin: 02/16/25 10:25 Dose: 30 ml Dextrose (Dextrose 50%-Water Inj 50 Ml Syringe) 50 ml IV Q15MIN PRN PRN Reason: BG <50 OR BG <70 & pt unresponsive Stop: 03/06/25 00:11 Dextrose (Dextrose 50%-Water Inj 50 Ml Syringe) 25 ml IV Q15MIN PRN PRN Reason: BG 50-70 responsive npo pt Stop: 03/06/25 00:11 Gabapentin (Gabapentin 300 Mg Capsule) 300 mg PO Q12HR [facility] Stop: 03/07/25 09:29 Last Admin: 02/16/25 10:25 Dose: 300 mg Glucagon (Glucagon Inj 1 Mg Vial) 1 mg IM Q15MIN PRN PRN Reason: BG <70, and no IV access Hydromorphone HCl (Hydromorphone Inj 2 Mg/Ml Vial) 0.5 mg IVP Q6H PRN PRN Reason: PAIN SCALE 7-10 (Severe Stop: 02/18/25 20:26 Last Admin: 02/12/25 18:40 Dose: 0.5 mg Albumin Human (Albuminex 25% Ivpb) 25 gm in 100 mls @ 100 mls/hr IV BID [facility] Stop: 02/17/25 09:44 Last Admin: 02/16/25 08:54 Dose: 100 mls/hr Insulin Human Lispro (Insulin Lispro (Admelog) 1 Unit/0.01 Ml Unit) 0 unit SC ACHS [facility]; Protocol Stop: 03/12/25 20:44 Last Admin: 02/16/25 12:57 Dose: Not Given Nifedipine (Nifedipine Xl 30 Mg Tabcr) 30 mg PO HS [facility] Stop: 03/17/25 11:59 Last Admin: 02/15/25 20:50 Dose: 30 mg Ondansetron HCl (Ondansetron Inj 2 Mg/Ml Inj 2 Ml) 4 mg IVP Q6H PRN; Protocol PRN Reason: NAUSEA OR VOMITING Stop: 03/06/25 00:05 Last Admin: 02/09/25 16:02 Dose: 4 mg Pharmacy Consult (Pharmacy Renal Dose Adjustment 1 Ea) 1 each XX PRN PRN PRN Reason: CONSULT Stop: 03/11/25 07:37 Polyethylene Glycol (Polyethylene Glycol 17 Gm Packet) 34 gm PO QDAY [facility] Stop: 03/09/25 14:24 Last Admin: 02/16/25 10:25 Dose: 34 gm Sennosides (Senna/Docusate Sod 1 Tab Tablet) 2 tab PO QDAY [facility]; Protocol Stop: 03/10/25 08:59 Last Admin: 02/16/25 10:26 Dose: 2 tab Discontinued Medications Acetaminophen (Acetaminophen 325 Mg Tablet) 650 mg PO X1 ONE Stop: 02/03/25 15:57 Last Admin: 02/03/25 16:11 Dose: 650 mg Hydrocodone Bitart/Acetaminophen (Hydrocodone/Apap 5/325 Tablet) 1 tab PO Q6HR PRN PRN Reason: PAIN SCALE 4-10(Mod-Sev Stop: 02/10/25 09:27 Last Admin: 02/05/25 09:39 Dose: 1 tab Albumin Human (Albumin Human-Kjda 25% Ivpb 25 Gm/100 Ml Btl) 25 gm IV X1 ONE Stop: 02/13/25 12:00 Last Admin: 02/13/25 12:16 Dose: Not Given Calcium Carbonate (Calcium Carbonate 600 Mg Tablet) 600 mg PO X1 ONE Stop: 02/13/25 08:05 Last Admin: 02/13/25 09:22 Dose: 600 mg Calcium Carbonate (Calcium Carbonate 600 Mg Tablet) 600 mg PO X1 ONE Stop: 02/16/25 09:24 Last Admin: 02/16/25 10:25 Dose: 600 mg Enoxaparin Sodium (Enoxaparin Sod Inj 40 Mg/0.4 Ml Syringe) 40 mg SC QDAY [facility] Stop: 02/18/25 08:59 Last Admin: 02/04/25 08:47 Dose: 40 mg Fentanyl Citrate (Fentanyl Cit Inj 50 Mcg/Ml Amp 2ml) 50 mcg IVP X1 ONE Stop: 02/09/25 14:02 Last Admin: 02/09/25 14:11 Dose: 50 mcg Heparin Sodium (Porcine) (Heparin Sod Inj 5000 Unit/Ml Vial) 5,000 unit SC Q12HR [facility] Stop: 02/18/25 20:59 Last Admin: 02/11/25 09:00 Dose: 5,000 unit Sodium Chloride (Ns) 500 mls @ 999 mls/hr IV .Q31M ONE Stop: 02/03/25 17:58 Last Infusion: 02/03/25 18:58 Dose: Infused Ceftriaxone Sodium/Dextrose (Rocephin/D5w 1gm Iv Premix) 1 gm in 50 mls @ 100 mls/hr IV X1 ONE Stop: 02/03/25 17:57 Last Infusion: 02/03/25 18:39 Dose: Infused Lactated Ringer's (Lactated Ringers) 1,000 mls @ 999 mls/hr IV .Q1H1M ONE Stop: 02/03/25 19:04 Last Admin: 02/03/25 18:38 Dose: Not Given Lactated Ringer's (Lactated Ringers) 500 mls @ 999 mls/hr IV .Q31M ONE Stop: 02/03/25 18:34 Last Admin: 02/03/25 18:37 Dose: Not Given Ceftriaxone Sodium/Dextrose (Rocephin/D5w 1gm Iv Premix) 1 gm in 50 mls @ 100 mls/hr IV X1 ONE Stop: 02/03/25 18:33 Last Admin: 02/03/25 18:09 Dose: Not Given Lactated Ringer's (Lactated Ringers) 1,500 mls @ 999 mls/hr IV .Q1H31M ONE Stop: 02/03/25 19:34 Last Infusion: 02/03/25 20:11 Dose: Infused Ciprofloxacin/Dextrose (Cipro Ivpb) 400 mg in 200 mls @ 200 mls/hr IV X1 ONE Stop: 02/03/25 22:53 Last Infusion: 02/03/25 23:36 Dose: Infused Metronidazole (Flagyl 500 Mg Iv) 500 mg in 100 mls @ 100 mls/hr IV X1 ONE Stop: 02/03/25 22:53 Last Infusion: 02/03/25 23:36 Dose: Infused Magnesium Sulfate (Magnesium Sulfate Ivpb) 4 gm in 50 mls @ 12.5 mls/hr IV X1 ONE Stop: 02/04/25 02:31 Last Infusion: 02/04/25 03:32 Dose: Infused Lactated Ringer's (Lactated Ringers) 1,000 mls @ 75 mls/hr IV .[id number] [facility] Stop: 02/04/25 13:34 Last Admin: 02/04/25 00:36 Dose: Not Given Piperacillin/Tazobactam/Dextrose (Zosyn) 3.375 gm in 50 mls @ 12.5 mls/hr IV Q8HR [facility]; Protocol Stop: 02/11/25 05:59 Last Infusion: 02/04/25 05:52 Dose: 0 mls/hr Piperacillin/Tazobactam/Dextrose (Zosyn) 3.375 gm in 50 mls @ 100 mls/hr IV X1 ONE; Protocol Stop: 02/04/25 00:44 Last Infusion: 02/04/25 01:08 Dose: Infused Lactated Ringer's (Lactated Ringers) 1,000 mls @ 100 mls/hr IV .Q10H [facility] Stop: 02/04/25 10:16 Last Admin: 02/04/25 00:35 Dose: 100 mls/hr Lactated Ringer's (Lactated Ringers) 500 mls @ 999 mls/hr IV .Q31M ONE Stop: 02/04/25 02:12 Last Infusion: 02/04/25 02:13 Dose: Infused Meropenem 1,000 mg/ Sodium (Chloride) 50 mls @ 100 mls/hr IV Q12HR [facility] Stop: 02/11/25 05:44 Last Admin: 02/07/25 08:31 Dose: 100 mls/hr Doxycycline Hyclate 100 mg/ (Sodium Chloride) 100 mls @ 100 mls/hr IV BID [facility] Stop: 02/08/25 21:00 Last Admin: 02/08/25 20:37 Dose: 100 mls/hr Magnesium Sulfate (Magnesium Sulfate Ivpb) 2 gm in 50 mls @ 25 mls/hr IV X1 ONE Stop: 02/06/25 09:38 Last Infusion: 02/06/25 12:14 Dose: Infused Lactated Ringer's (Lactated Ringers) 500 mls @ 70 mls/hr IV .Q7H9M [facility] Stop: 02/06/25 17:14 Last Infusion: 02/06/25 17:30 Dose: Infused Piperacillin/Tazobactam/Dextrose (Zosyn) 3.375 gm in 50 mls @ 12.5 mls/hr IV Q8HR [facility]; Protocol Stop: 02/14/25 21:59 Last Admin: 02/09/25 05:40 Dose: 12.5 mls/hr Piperacillin/Tazobactam/Dextrose (Zosyn) 3.375 gm in 50 mls @ 100 mls/hr IV X1 ONE; Protocol Stop: 02/07/25 11:59 Last Admin: 02/07/25 12:16 Dose: 100 mls/hr Lactated Ringer's (Lactated Ringers) 1,000 mls @ 250 mls/hr IV .Q4H [facility] Stop: 02/08/25 12:08 Last Admin: 02/08/25 08:46 Dose: 250 mls/hr Piperacillin/Tazobactam/Dextrose (Zosyn) 3.375 gm in 50 mls @ 12.5 mls/hr IV Q12HR [facility]; Protocol Stop: 02/14/25 20:59 Last Admin: 02/14/25 09:34 Dose: 12.5 mls/hr Sodium Chloride (Ns) 500 mls @ 250 mls/hr IV .Q2H ONE Stop: 02/09/25 09:57 Last Admin: 02/09/25 08:07 Dose: 250 mls/hr Sodium Chloride (Ns) 1,000 mls @ 65 mls/hr IV .[id number] [facility] Stop: 02/10/25 03:38 Last Admin: 02/09/25 12:17 Dose: 65 mls/hr Acetaminophen (Ofirmev Inj) 1,000 mg in 100 mls @ 250 mls/hr IV X1 ONE Stop: 02/10/25 01:42 Last Admin: 02/10/25 01:44 Dose: 250 mls/hr Lactated Ringer's (Lactated Ringers) 1,000 mls @ 999 mls/hr IV .Q1H1M ONE Stop: 02/10/25 07:54 Last Admin: 02/10/25 07:17 Dose: 999 mls/hr Lactated Ringer's (Lactated Ringers) 1,000 mls @ 70 mls/hr IV .[id number] ONE Stop: 02/10/25 22:17 Last Infusion: 02/10/25 12:34 Dose: 125 mls/hr Lactated Ringer's (Lactated Ringers) 1,000 mls @ 125 mls/hr IV .Q8H ONE Stop: 02/10/25 15:59 Last Admin: 02/10/25 13:39 Dose: Not Given Lactated Ringer's (Lactated Ringers) 1,000 mls @ 125 mls/hr IV .Q8H [facility] Stop: 03/12/25 12:29 Last Infusion: 02/11/25 16:27 Dose: 80 mls/hr Magnesium Sulfate (Magnesium Sulfate Ivpb) 2 gm in 50 mls @ 25 mls/hr IV X1 ONE Stop: 02/11/25 12:23 Last Infusion: 02/11/25 19:27 Dose: Infused Lactated Ringer's (Lactated Ringers) 1,000 mls @ 80 mls/hr IV .[id number] [facility] Stop: 03/13/25 15:59 Last Infusion: 02/12/25 19:58 Dose: Infused Sodium Chloride (Ns) 1,000 mls @ 100 mls/hr IV Q10H [facility] Stop: 03/14/25 07:50 Last Admin: 02/14/25 03:30 Dose: 100 mls/hr Albumin Human (Albuminex 25% Ivpb) 25 gm in 100 mls @ 100 mls/hr IV X1 ONE Stop: 02/13/25 13:14 Last Admin: 02/13/25 12:32 Dose: 100 mls/hr Sodium Chloride (Ns) 1,000 mls @ 250 mls/hr IV .Q4H ONE Stop: 02/14/25 14:41 Last Admin: 02/14/25 11:08 Dose: Not Given Sodium Chloride (Ns) 1,000 mls @ 100 mls/hr IV .Q10H [facility] Stop: 03/16/25 14:15 Last Admin: 02/15/25 20:51 Dose: 100 mls/hr Magnesium Sulfate (Magnesium Sulfate Ivpb) 2 gm in 50 mls @ 25 mls/hr IV X1 ONE Stop: 02/16/25 10:53 Last Admin: 02/16/25 10:25 Dose: 25 mls/hr Insulin Human Lispro (Insulin Lispro (Admelog) 1 Unit/0.01 Ml Unit) 0 unit SC AC [facility]; Protocol Stop: 03/07/25 07:29 Insulin Human Lispro (Insulin Lispro (Admelog) 1 Unit/0.01 Ml Unit) 0 unit SC ACHS [facility]; Protocol Stop: 03/06/25 20:59 Last Admin: 02/06/25 07:29 Dose: Not Given Insulin Human Lispro (Insulin Lispro (Admelog) 1 Unit/0.01 Ml Unit) 0 unit SC ACHS [facility]; Protocol Stop: 03/06/25 20:59 Last Admin: 02/07/25 20:38 Dose: 2 unit Insulin Human Lispro (Insulin Lispro (Admelog) 1 Unit/0.01 Ml Unit) 0 unit SC Q6HR [facility]; Protocol Stop: 03/10/25 05:59 Last Admin: 02/10/25 18:57 Dose: Not Given Lidocaine HCl (Lidocaine Inj Pf 1% 30 Ml Vial) 9 ml INFL X1 ONE Stop: 02/09/25 14:02 Last Admin: 02/09/25 14:12 Dose: 9 ml Magnesium Oxide (Magnesium Oxide 400 Mg Tablet) 400 mg PO X1 ONE Stop: 02/15/25 09:06 Last Admin: 02/15/25 09:33 Dose: 400 mg Metoclopramide HCl (Metoclopramide Inj 5 Mg/Ml Vial 2 Ml) 5 mg IVP X1 ONE; Protocol Stop: 02/07/25 16:26 Last Admin: 02/07/25 16:49 Dose: 5 mg Nifedipine (Nifedipine Xl 30 Mg Tabcr) 30 mg PO QDAY [facility] Stop: 03/06/25 20:14 Nifedipine (Nifedipine Xl 30 Mg Tabcr) 30 mg PO HS [facility] Stop: 03/06/25 20:59 Last Admin: 02/05/25 20:20 Dose: 30 mg Nifedipine (Nifedipine Xl 30 Mg Tabcr) 30 mg PO HS [facility] Stop: 03/17/25 20:59 Potassium Chloride (Potassium Chloride 10% 20 Meq/15 Ml Udc) 20 meq PO X1 ONE Stop: 02/05/25 09:01 Last Admin: 02/05/25 08:11 Dose: 20 meq Potassium Chloride (Potassium Chloride 20 Meq Tabcr) 20 meq PO X1 ONE Stop: 02/09/25 08:21 Potassium Chloride (Potassium Chloride 10% 20 Meq/15 Ml Udc) 20 meq PO X1 ONE Stop: 02/16/25 08:55 Last Admin: 02/16/25 10:25 Dose: 20 meq Sennosides (Senna/Docusate Sod 1 Tab Tablet) 2 tab PO X1 ONE; Protocol Stop: 02/07/25 14:23 Last Admin: 02/07/25 17:11 Dose: Not Given Sodium Chloride (Sodium Chloride Rt 10% 15 Ml Nebu) 5 ml INH X1 ONE Stop: 02/04/25 07:49 Last Admin: 02/07/25 19:04 Dose: Not Given Tuberculin PPD (Tuberculin Ppd Inj 5 Unit/0.1 Ml Dose) 5 unit ID X1 ONE Stop: 02/14/25 11:12 Last Admin: 02/14/25 14:32 Dose: 5 unit
--- NOTE | 2025-02-17 08:14 | PC.CC ---
During rounds on 02/16/25, it was reported patient was discharged w/ HH. HH ref not received. Spoke to Dr. Peña regarding HH order, he stated he will reach out to Dr. Arnett.
--- NOTE | 2025-02-17 11:08 | PC.CC ---
Addendum entered by Remi Gu RN 02/17/25 12:02: [facility] accepted, SOC pending Original Note: HH referral received. Referral sent out, waiting for responses.
--- NOTE | 2025-02-19 08:41 | PC.CC ---
Laura SOC 02/19
== END 2025-02-16 17:10 | disposition home health service (06) | DRG 720 ==
LOC: SERX 21:56 → SERHOLD 02-04 00:30 → S2NX 02-04 01:26 → S3NX 02-14 04:09
PROVIDERS: Internal Medicine; Nurse Practitioner Family; Registered Nurse General Practice; Admitting Provider Student in an Organized Health Care Education/Training Program; Emergency Provider Emergency Medicine; PCP Physician Assistant; Visit Provider Student in an Organized Health Care Education/Training Program
DX: A41.51 Sepsis due to Escherichia coli [E. coli] (principal); C18.9 Malignant neoplasm of colon, unspecified; I12.9 Hypertensive chronic kidney disease with stage 1 through stage 4 chronic kidney disease, or unspecified chronic kidney disease; E11.22 Type 2 diabetes mellitus with diabetic chronic kidney disease; N18.32 Chronic kidney disease, stage 3b; E78.5 Hyperlipidemia, unspecified; N39.0 Urinary tract infection, site not specified; E87.20 Acidosis, unspecified; E11.40 Type 2 diabetes mellitus with diabetic neuropathy, unspecified; C78.00 Secondary malignant neoplasm of unspecified lung; N17.0 Acute kidney failure with tubular necrosis; Z87.440 Personal history of urinary (tract) infections; Z93.3 Colostomy status; Z79.4 Long term (current) use of insulin; N18.6 End stage renal disease; J18.9 Pneumonia, unspecified organism; I12.0 Hypertensive chronic kidney disease with stage 5 chronic kidney disease or end stage renal disease; K65.1 Peritoneal abscess; R65.20 Severe sepsis without septic shock; Z16.11 Resistance to penicillins; Z60.3 Acculturation difficulty; E87.1 Hypo-osmolality and hyponatremia; E88.09 Other disorders of plasma-protein metabolism, not elsewhere classified; E86.1 Hypovolemia; E86.0 Dehydration; E87.4 Mixed disorder of acid-base balance; D61.818 Other pancytopenia; N73.9 Female pelvic inflammatory disease, unspecified; Z90.49 Acquired absence of other specified parts of digestive tract; Z92.21 Personal history of antineoplastic chemotherapy; Z92.3 Personal history of irradiation; Z85.048 Personal history of other malignant neoplasm of rectum, rectosigmoid junction, and anus; Z86.19 Personal history of other infectious and parasitic diseases
CPT/HCPCS: 36415; 71045; 74018; 74176; 74177; 75989; 76770; 80053; 80069; 80074; 81001; 82436; 82570; 82803; 83605; 83615; 83690; 83735; 83880; 84100; 84133; 84145; 84300; 84484; 85014; 85018; 85025; 85610; 85730; 86580; 87040; 87070; 87075; 87077; 87081; 87086; 87186; 87205; 87811; 92526; 92610; 93005; 93225; 93306; 96361; 96365; 96366; 97162; 99285; A4649; J0131; J0696; J0744; J1171; J1644; J1650; J1815; J2185; J2405; J2543; J2765; J3010; J3475; J3490; J7030; J7050; J7120; J7999; P9047; Q9963; Q9967; A9270; C1725; J1836

== ENCOUNTER 2025-02-24 11:42 | Emergency (ER) | payer MEDICAID, SELFPAY ==
[2025-02-24] VITALS (8 sets, daily range): BP systolic 133–166; BP diastolic 68–79; PULSE 79–92; RESP 12–18; TEMP 36.6–36.8; O2SAT 98–100; BMI 25.4
--- NOTE | 2025-02-24 12:00 | PD.EDRME ---
Rapid Medical Screening Exam E Arrival date/time: 02/24/25 11:42 79-year-old female with a history of hypertension, type 2 diabetes, colon cancer, presents to the emergency room with a chief complaint of bilateral lower extremity swelling and swelling to her arms. Daughter states that the patient has also had a decreased urine output. I have greeted and performed a focused initial assessment of this patient. A comprehensive ED assessment and evaluation of the patient, analysis of all test results, and completion of the medical decision making process will be conducted by additional ED providers. Chief Complaint: Urogenital-Female Time Seen by Provider: 02/24/25 11:56 Vital signs: Vital Signs Temperature 98.3 F 02/24/25 11:49 Pulse Rate 92 02/24/25 11:49 Respiratory Rate 16 02/24/25 11:49 Blood Pressure 133/71 H 02/24/25 11:49 Pulse Oximetry (%) 98 02/24/25 11:49 Oxygen Delivery Method Room Air 02/24/25 11:49 Vital signs reviewed by provider: Yes Exam: Bilateral lower extremity pitting edema Clear bilateral lung sounds Clinical Impression: Chronic kidney disease/end-stage renal disease/edema
[2025-02-24 12:49] LABS: B-Type Natriuretic Peptide 230 pg/mL (0-100)
[2025-02-24 12:50] LABS: Troponin I 0.020 ng/mL (0.0-0.045)
--- NOTE | 2025-02-24 13:08 | XR_ITS ---
Examination: Retroperitoneal ultrasound, complete Technique: Multiple high resolution grayscale images of the retroperitoneum obtained, including kidneys and bladder. Exam date and time: February 24, 2025, 1501 hours INDICATIONS: No urinary outflow with Nixon, new Nixon inserted today FINDINGS: Right kidney 9.3 cm renal cortex 1.7 cm Mild right hydronephrosis Left kidney 10.3 cm and the cortex 1.7 cm Cystic mass left kidney with internal echoes 20 x 13 x 17 mm Moderate renal scar formation Urinary bladder is contracted around a Nixon catheter poor visualization IMPRESSION: Mild right hydronephrosis Moderate renal scar formation
--- NOTE | 2025-02-24 13:25 | EDNOTE_ITS ---
<Statement entered by Cristel Sen MD - 03/12/25 17:44> I, Critsel Sen MD, have reviewed the history, exam, and assessment of the patient. I have evaluated the patient independently and agree with the plan of care documented by [ ]. All diagnostic studies were reviewed and discussed. I confirm the diagnosis as documented by the Resident. I was present during the Medical Decision Making for this patient. The patient's plan of care was created between myself and the Resident and consistent with our discussion of the patient's case. ED General RME/HPI General Chief complaint: Urogenital-Female Stated complaint: NO URINE OUTPUT X 15 HRS, HAS NASSAR Time Seen by Provider: 02/24/25 11:56 Arrival date/time: 02/24/25 11:42 RME / HPI RME / HPI narrative: 02/24/25 11:42 79-year-old female with a history of hypertension, type 2 diabetes, colon cancer, presents to the emergency room with a chief complaint of bilateral lower extremity swelling and swelling to her arms. Daughter states that the patient has also had a decreased urine output. I have greeted and performed a focused initial assessment of this patient. A comprehensive ED assessment and evaluation of the patient, analysis of all test results, and completion of the medical decision making process will be conducted by additional ED providers. Exam: Bilateral lower extremity pitting edema Clear bilateral lung sounds Impression: Chronic kidney disease/end-stage renal disease/edema Related Data Home Medications ?Medication ?Instructions ?Recorded ?Confirmed carvedilol 3.125 mg tablet 3.125 mg PO BID 10/22/24 Held on 02/16/25. Instructions: Resume on 02/23/25. Until you see your Cardiology or PCP. gabapentin 300 mg capsule 300 mg PO Q12H 10/22/2401/11 nifedipine 30 mg tablet,extended 30 mg PO HS 10/22/24 02/04/25 release insulin glargine 100 unit/mL (3 10 unit subcut QPM 02/04/25 mL) subcutaneous pen (Basaglar KwikPen U-100 Insulin) Held on 02/16/25. Instructions: Resume on 02/19/25. Until you are random blood sugar level is greater than 160. ferrous sulfate 325 mg (65 mg 325 mg PO QDAY 02/04/25 02/04/25 iron) tablet (FeroSul) Previous Rx's ?Medication ?Instructions ?Recorded polyethylene glycol 3350 17 gram 34 g PO QDAY 10 days #10 ea 02/16/25 oral powder packet (HealthyLax) fluconazole 150 mg tablet 150 mg PO Q3D 2 doses #3 tab s 02/24/25 Allergies Allergy/AdvReac Type Severity Reaction Status Date / Time No Known Allergies Allergy Verified 02/24/25 11:44 ED Exam Narrative Physical exam: Physical Exam: GENERAL: Awake, appears debilitated but answers questions in Stateless slowly, frail-appearing HEENT: NC/AT. Moist mucosa. PERRLA/EOMI. CARDIO: Heart RRR, no obvious murmurs, no JVD. PULM: No coughing or visible SOB. Lungs CTA B/L. GI: Abdomen soft, NT/ND, +BS. Left-sided colostomy. Pelvic drain intact. URO/STREETCAR STARTER: +Nassar catheter initially was draining minimal urine; Nassar change resulted in a large amount of urine output SKIN/MSK/EXT: No wounds/discoloration/rashes/edema/amputations. +Pedal pulses present B/L. NEURO: Oriented x3, Moves extremities x4, no focal neurologic deficits noted. Course Quality Measures none Orders Category Date Time Status Nassar [Urinary Catheter, Remove] ONCE Care 02/24/25 14:12 Active Nassar [Urinary Catheter] QS Care 02/24/25 14:12 Active May Access Port-A-Cath NOW Care 02/24/25 13:45 Ordered Miscellaneous Nursing Order NOW Care 02/24/25 13:23 Active Post Transfusion H&H X1 Care 02/24/25 13:06 Active Transfuse,blood/blood products NOW Care 02/24/25 13:04 Active US renal BI Stat Exams 02/24/25 13:08 Completed BNP [B-Type Natriuretic Peptide] Stat Lab 02/24/25 12:17 Completed PT [Prothrombin Time with INR] Stat Lab 02/24/25 12:17 Completed PTT [Partial Thromboplastin Time] Stat Lab 02/24/25 12:17 Completed Troponin I Stat Lab 02/24/25 12:17 Completed Type and Screen Stat Lab 02/24/25 13:37 Completed UA, C/S IF [Urinalysis, C/S if Indicated] Stat Lab 02/24/25 14:27 Completed Urine Culture Stat Lab 02/24/25 14:27 Received prbc [Red Blood Cells] Stat Lab 02/24/25 13:37 Completed Vital Signs Vital signs: Vital Signs Temperature 98.3 F 02/24/25 11:49 Pulse Rate 92 02/24/25 11:49 Respiratory Rate 16 02/24/25 11:49 Blood Pressure 133/71 H 02/24/25 11:49 Pulse Oximetry (%) 98 02/24/25 11:49 Oxygen Delivery Method Room Air 02/24/25 11:49 Discharge Plan Plan Patient Disposition: HOME (Self Care) Patient condition on transfer: Stable Prescriptions/Referrals Prescriptions/Med Rec: New fluconazole 150 mg tablet 150 mg PO Q3D Qty: 3 0RF No Action nifedipine 30 mg tablet extended release 30 mg PO HS carvedilol 3.125 mg tablet 3.125 mg PO BID gabapentin 300 mg capsule 300 mg PO Q12H ferrous sulfate [FeroSul] 325 mg (65 mg iron) tablet 325 mg PO QDAY polyethylene glycol 3350 [HealthyLax] 17 gram Powder In Packet 34 g PO QDAY 10 Days Qty: 10 0RF insulin glargine [Basaglar KwikPen U-100 Insulin] 100 unit/mL (3 mL) insulin pen 10 unit subcut QPM Referrals: Radha Cristobal PA-C [Primary Care Provider, Emergency Medicine] - In 1 week Problem List Clinical Impression: UTI (urinary tract infection), Symptomatic anemia Patient/Caregiver Discharge Instructions Additional Instructions: Por favor, tome fluconazol seg?n lo recetado. Contin?e con las citas de seguimiento con singh onc?logo, m?dico de cabecera y cirujano colorrectal seg?n lo programado. Si kirill s?ntomas empeoran o si presenta dolor en el pecho nuevo o que empeora, dificultad para respirar, disminuci?n de la micci?n o fiebre/escalofr?os, acuda a la chaz de emergencias de inmediato. Print Language: Stateless Stand Alone Forms: Lily Award Info., Patient Portal Info Letter MDM Narrative MDM hospital course (for use when minimal MDM required): HPI: 79-year-old female with past medical history of metastatic colon cancer status post chemoradiation, colectomy with colostomy, CKD stage V, insulin-dependent type 2 diabetes, hypertension, hyperlipidemia and chronic anemia presenting to the ER on 02/24 due to low urine output. As per patient's daughter who is bedside since 8 PM last night patient has made very minimal urine. They are in the process of seeing a catshovel driver as the patient has worsening kidney function since being admitted apparently around January 2025. She recently had a pelvic abscess drain placed on her last admission with discharge on February 16, 2025. She has since been seen by her colorectal surgeon Dr. Mitchell who is requesting a follow-up appointment in 1 month to assess for the drain. She also follows up with Dr. Lisa for chemotherapy and she is presenting from her clinic today. On examination, please refer to the physical exam above; patient presented mildly hypertensive 133/71, heart rate of 92, respiratory of 16, afebrile satting 98 on room air. Pertinent lab findings included worsening anemia with hemoglobin 6.9, baseline around 7?8, platelets of 140, CMP shows hyponatremia, creatinine 3.6 with a GFR of 12, LFTs within normal limits, troponin of 0.020, BNP of 230. Urinalysis shows some hematuria and pyuria but no signs of bacteriuria but there is budding yeast with yeast w/hyphae. Kidney ultrasound has been ordered. #Clogged Nassar catheter #Fungal UTI Irrigation did not improve urine output; Nassar catheter was exchanged Patient has put out roughly 1 L of urine output since Nassar change UA as above Plan: Will discharge with new Nassar catheter Please take fluconazole as prescribed Follow-up with your oncologist, PCP and colorectal surgeron as scheduled If your symptoms worsen or if you develop new or worsening chest pain, shortness of breath, decreased urination or fever/chils - please come back to the ER immediately. #Acute on chronic anemia Patient's hemoglobin below baseline at 6.9 will require 1 unit of PRBC transfusion Plan: Will discharge after transfusion Patient seen and assessed with attending Dr. AMITA Ledesma, DO PGY-2 Internal Medicine - [facility]
[2025-02-24 13:32] LABS: INR 1.1 (0.9-1.3); Partial Thromboplastin Time 31.4 Seconds (22.0-36.0); Prothrombin Time 12.0 Seconds (9.0-12.2)
[2025-02-24 14:41] LABS: Collection Type, Urine Clean Catch; Squamous Epithelial Cell,Urine 0 /hpf (0-5)
[2025-02-24 15:03] LABS: Bilirubin,Urine Negative (Negative); Blood,Urine 1+ (Negative); Budding Yeast,Urine Present; Clarity,Urine Clear (Clear/Hazy); Color,Urine Lt-Yellow (Lt Yel-Yel); Glucose, Urine Negative (Negative); Hyphae Yeast Present; Ketones,Urine Negative (Negative); Leukocyte Esterase,Urine Positive (Negative); Nitrite,Urine Negative (Negative); PH,Urine 6.5 (5.0-7.0); Protein,Urine Trace (Neg - Trace); RBC,Urine 9 /hpf (0-3); Specific Gravity,Urine 1.007 (1.001-1.035); Urobilinogen,Urine Negative mg/dL (0.0-1.0); WBC,Urine 55 /hpf (0-5)
[2025-02-24 15:04] LABS: Culture Indicated,Urine Yes
[2025-02-24 19:45] LABS: Hematocrit 28.8 % (36.0-46.0); Hemoglobin 10.1 g/dL (12.0-16.0)
== END 2025-02-24 19:50 | disposition home or self-care (01) ==
PROVIDERS: Nurse Practitioner Family; Emergency Provider Emergency Medicine; PCP Physician Assistant
DX: T83.091A Other mechanical complication of indwelling urethral catheter, initial encounter (principal); N39.0 Urinary tract infection, site not specified; I12.0 Hypertensive chronic kidney disease with stage 5 chronic kidney disease or end stage renal disease; E11.22 Type 2 diabetes mellitus with diabetic chronic kidney disease; N18.5 Chronic kidney disease, stage 5; D63.1 Anemia in chronic kidney disease; Z79.4 Long term (current) use of insulin; Y73.8 Miscellaneous gastroenterology and urology devices associated with adverse incidents, not elsewhere classified
CPT/HCPCS: 36415; 36430; 51702; 76770; 81001; 83880; 84484; 85014; 85018; 85610; 85730; 86850; 86900; 86901; 86923; 87086; 87106; 87186; 99284; A4314; P9016

== ENCOUNTER 2025-02-25 12:58 | Outpatient (RCR) | payer MEDICAID, SELFPAY ==
[2025-02-24 11:57] LABS: Basophils # (Auto) 0.0 Thou/mm3 (0.0-0.2); Basophils % (Auto) 0 % (0-2.5); Eosinophils # (Auto) 0.0 Thou/mm3 (0.0-0.5); Eosinophils % (Auto) 0 % (0-10); Hematocrit 20.4 % (36.0-46.0); Immature Granulocytes Auto 0.04 Thou/mm3 (0.00-0.00); Lymphocytes # (Auto) 2.0 Thou/mm3 (1.0-4.8); Lymphocytes % (Auto) 18 % (10-50); Mean Corpuscular HGB Conc 33.8 g/dl (31.0-37.0); Mean Corpuscular Hemoglobin 31.1 pg (25.0-35.0); Mean Corpuscular Volume 92 fL (80-100); Monocytes # (Auto) 0.9 Thou/mm3 (0.0-0.8); Monocytes % (Auto) 8 % (0-12); Neutrophils # (Auto) 8.1 Thou/mm3 (1.8-7.7); Neutrophils % (Auto) 73 % (37-80); Nucleated Red Blood Cell # 0.00 Thou/mm3 (0.00-0.00); Nucleated Red Blood Cell % 0 /100 WBC (0); Platelet Count 140 Thou/mm3 (140-440); RDW Standard Deviation 61.0 fL (36.4-46.3); Red Blood Count 2.22 Miln/mm3 (4.00-5.20); White Blood Count 11.0 Thou/mm3 (3.6-11.0)
[2025-02-24 12:18] LABS: Alanine Aminotransferase < 7 U/L (10-49); Albumin, Serum 3.3 gm/dL (3.4-4.8); Albumin/Globulin Ratio 1.4 (1.2-2.2); Alkaline Phosphatase 111 U/L (46-116); Anion Gap 10 (7-16); Aspartate Amino Transferase 28 U/L (0-34); BUN/Creatinine Ratio 10 Ratio (12-20); Bilirubin,Total 0.3 mg/dL (0.3-1.2); Blood Urea Nitrogen 37 mg/dL (9-23); Calcium 7.8 mg/dL (8.3-10.6); Calcium (Corrected) 8.4 mg/dL (8.5-10.1); Carbon Dioxide 21.3 mMol/L (20.0-31.0); Chloride 100 mMol/L (98-107); Creatinine (Component) 3.6 mg/dL (0.6-1.3); Globulin 2.4 gm/dL (2.3-3.5); Glucose 121 mg/dL (74-106); Osmolality,Calculated 272 (275-295); Potassium 4.5 mMol/L (3.4-5.1); Sodium 131 mMol/L (136-145); Total Protein 5.7 gm/dL (5.7-8.2); eGFR 12 See Note
[2025-02-24 12:43] LABS: Hemoglobin 6.9 g/dL (12.0-16.0)
[2025-02-24 14:38] LABS: Carcinoembryonic Antigen 13.1 ng/mL (0.0-5.0)
--- NOTE | 2025-03-15 20:30 | CTCFLWUP_ITS ---
Patient: NIRAV CAGLE : 1945 Page 4 of 5 FOLLOW UP NOTE DATE OF SERVICE: 02/19/2025 NAME: NIRAV CAGLE ACCOUNT: [id number] : 1945 AGE: 79 INTERVAL HISTORY: Patient was admitted to the hospital with pelvic abscess. Patient also have ESBL and have been on and off antibiotics. Patient had multiple imaging for her pelvic abscess. Her kidney function has been deteriorated. Patient is yet to's follow-up with epidemiologist. 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 Patient had a colonoscopy on June 28, 2022. There was a rectal mass extending to the anus. Biopsy showed invasive adenocarcinoma moderately differentiated no loss of MMR. Patient completed preoperative chemoradiation with capecitabine 1000 mg twice daily on days of radiation. Patient tolerated the treatment well Patient had an episode of severe anemia requiring transfusion rectal bleeding has improved with this chemoradiation. Ms. Cagle has been seen by surgery and had follow-up sigmoidoscopy and biopsy. Patient was told there was no cancer found by multiple biopsies. Patient had been referred to [facility] by surgery. The referral was not approved by insurance. Patient decided to continue treatment locally. Patient received her first course of CapeOx chemotherapy with adjusted dose of advanced age on December 06, 2022. Patient tolerated the treatment very well. Ms. Cagle completed CapeOx chemotherapy in May 2023. Ms. Cagle underwent low anterior resection on August 23, 2023. Recent CT scan of chest abdomen and pelvis on December 07, 2023 showed pulmonary metastasis. OTHER MEDICAL HISTORY/CONDITIONS: DIABETES TYPE 2 HYPERTENSION RECTAL CANCER (2022) NEUROPATHY HYPERLIPIDEMIA ANEMIA REQUIRING BLOOD TRANSFUSIONS CHRONIC KIDNEY DISEASE COLON SURGERY/ COLECTOMY IN [place] (AUGUST 2023) CHOLECYSTECTOMY (2019) FAMILY HISTORY: Father:?DENIES?,?FATHER?WAS?DIABETIC Mother:?DENIES Sibling:?DENIES Children:?DENIES Cancer?History:?RECTAL?CANCER Patient?denies?family?cancer?history. 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 Education?Level:?Completed something less than 8th grade Marital?Status:? 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 Basaglar KwikPen - As directed 2. gabapentin - 300 mg Twice a Day 3. hydrocodone-acetaminophen - 5-325 mg 1 tab every 8 hrs as needed for pain 4. Lasix - 20 mg 1 tab Daily 5. NIFEdipine ER - 30 mg 1 tab Every day before sleep Medications Last Reconciled by Sarah Walker MD on 02/25/2025 ALLERGIES: No Known Allergies REVIEW OF SYSTEMS: A complete 14-point review of systems was performed and is negative except as noted in interval history. PHYSICAL EXAMINATION: VITAL SIGNS: Temperature?99.3, B/P?137/79, Oxygen?Saturation?98% Weight?117?lbs (Change?since?02/03/25:?-8.8?lbs) PAIN: 0 - No pain ECOG Performance Status: 3 - Symptomatic; limited self-care; spends >50% of time in bed, not bedridden GENERAL APPEARANCE: Appears well, in no apparent distress, appropriately interactive. HEENT: Normocephalic, no temporal wasting, normal conjunctiva, no scleral icterus, normal hearing, lips without lesions, neck normal range of motion. CARDIOVASCULAR: Not assessed. PULMONARY: Normal respiratory effort, no respiratory distress or use of accessory muscles, speaking in full sentences, no tachypnea. EXTREMITIES: No pedal edema or cyanosis. SKIN: Normal skin appearance. NEUROLOGIC: Alert and oriented x4. PSHYCHIATRIC: Appropriate affect, mood normal, behavior normal, intact thought and speech. LABORATORY DATA: I have personally reviewed and interpreted each of the patient?s relevant lab tests, abnormal findings are below: Date 02/24/25 ??WHITE?BLOOD?COUNT?(Thou/mm3) 11.0 ? ??RED?BLOOD?COUNT?(Miln/mm3) 2.22?L ? ??HEMOGLOBIN?(gm/dl) 6.9?LL 10.1?L ??HEMATOCRIT?(%) 20.4?LL 28.8?L ??PLATELET?COUNT?(Thou/mm3) 140 ? ??NEUTROPHILS?%,?AUTO?(%) 73 ? ??LYMPH?%,?AUTO?(%) 18 ? ??NEUTROPHILS,?AUTO?(Thou/mm3) 8.1?H ? ??GLUCOSE,RANDOM?(mg/dL) 121?H ? ??BLOOD?UREA?NITROGEN?(mg/dL) 37?H ? ??CREATININE?(mg/dL) 3.60?H ? ??SODIUM?(mmol/L) 131?L ? ??POTASSIUM?(mmol/L) 4.5 ? ??CHLORIDE?(mmol/L) 100 ? ??CrCl?(CandG)?(ml/min) 11.07 ? ??AST/SGOT?(Unit/L) 28 ? ??ALT/SGPT?(Unit/L) <?7?L ? ??ALKALINE?PHOSPHATASE?(Unit/L) 111 ? ??BILIRUBIN,?TOTAL?(mg/dL) 0.3 ? ??PROTEIN?TOTAL?(gm/dl) 5.7 ? ??ALBUMIN,?SERUM?(gm/dl) 3.3?L ? ??GLOBULIN?(gm/dl) 2.4 ? ??ALBUMIN/GLOBULIN?RATIO 1.4 ? ??CALCIUM,?SERUM?(mg/dL) 7.8?L ? ??CALCIUM?SERUM?(CORRECTED)?(mg/dL) 8.4?L ? ??CEA?(O*)?(ng/ml) 13.1?H ? ASSESSMENT/PLAN: Rectal sigmoid tumor mass Diagnosed in 2022 S/p chemo RT and lower perineal resection Patient have colectomy bag Patient was placed on FOLFOX after she had progression of cancer with elevated CEA Patient is yet to have biopsy of the lung lesion Kidney function has been deteriorating and will hold chemotherapy Patient to see epidemiologist and may need to start dialysis Patient have pelvic abscess as well as ESBL producing UTI Advised to follow-up with the primary care and epidemiologist Hold chemotherapy for now Will get a biopsy of the lung nodules once patient is stable urinary tract infection with ESBL-producing E. coli Assessment: Patient has a severe urinary tract infection caused by ESBL- producing E. coli, which is resistant to ordinary antibiotics. This infection is likely exacerbated by the presence of the urinary catheter and the patient's inability to empty her bladder fully due to the rectal tumor. The patient was treated for 10 days, but the infection persists. Plan: - Continue current antibiotic treatment - Encourage increased fluid intake - Educate patient and caregivers on proper catheter care including wearing gloves when changing the catheter and practicing good hand hygiene - Monitor for signs of fever or worsening infection Pulmonary nodular disease Assessment: CT scan from October 28, 2024, revealed progression of pulmonary nodular disease, likely metastatic from the primary rectal sigmoid tumor. Plan: -Hold further chemotherapy Wait for epidemiologist to see Ms. Cagle and if needed will be started on dialysis That time we can start chemotherapy Also need biopsy of the lung nodule and will do NGS panel on them Pelvic abscess Assessment: CT scan from October 28, 2024, showed a fluid and air-containing structure in the pelvis measuring 8.3 by 5 cm, consistent with an abscess. This abscess has been drained. Plan: - Monitor for recurrence or complications ORDERS: Order # Description [id number] Infusion 5 Hours [id number] Discontinue CIV Pump [id number] Infusion 5 Hours [id number] Discontinue CIV Pump [id number] Infusion 5 Hours [id number] Discontinue CIV Pump [id number] Infusion 5 Hours [id number] Discontinue CIV Pump RETURN TO CLINIC: I reviewed the diagnosis, prognosis, and recommended treatment/procedure options with the patient (and/or their legal inbound customer service representative), including the potential benefits, risks, side effects and alternative therapies. We also discussed the option of no treatment and the possibility of clinical trial participation, if applicable. All questions were addressed, and they demonstrated understanding. They provided informed consent to proceed with the proposed plan of care. BILLING AND COMPLIANCE: I reviewed external records from providers outside my specialty as summarized above. I spent a total of 50 minutes on this patient?s care on the day of their visit excluding time spent related to any billed procedures. This time includes time spent with the patient as well as time spent documenting in the medical record, reviewing patients records and tests, obtaining history, placing orders, communicating with other healthcare professionals, counseling the patient, family or caregiver, and/or care coordination for the diagnoses above. Electronically Signed by: {Object.Sanct_ID*PnP.NameFL@M}, {Object.Sanct_ID*PnP.Suffix@U} D: {Object.Sanct_Date} T: {Object.Sanct_Time} CC: Radha?Levar?(sun),? PCP: Referring: Radha Cristobal (tipton) This document was completed utilizing speech recognition software. Grammatical errors, random word insertions, pronoun errors, and incomplete sentences are an occasional consequence of this system due to software limitations, ambient noise, and hardware issues. Any formal questions or concerns about the content, text or information contained within the body of this dictation should be directly addressed to the provider for clarification.
== END 2025-03-11 23:59 | disposition home or self-care (01) ==
LOC: SCTC 12:58
PROVIDERS: PCP Physician Assistant; Referring Provider Physician Assistant; Visit Provider Internal Medicine Hematology & Oncology
DX: C20 Malignant neoplasm of rectum (principal); Z90.49 Acquired absence of other specified parts of digestive tract; R91.8 Other nonspecific abnormal finding of lung field; N39.0 Urinary tract infection, site not specified; B96.20 Unspecified Escherichia coli [E. coli] as the cause of diseases classified elsewhere; Z16.30 Resistance to unspecified antimicrobial drugs; N73.9 Female pelvic inflammatory disease, unspecified
CPT/HCPCS: 36591; 80053; 82378; 85025; 99212; A4216; J1642; G0463